=== PATIENT | male | born 1940 | race Caucasian/White ===

== ENCOUNTER 2023-05-20 08:01 | Emergency (ER) | payer MEDICARE, OTHER, SELFPAY ==
[2023-05-20 08:07] VITALS: BP 138/77; PULSE 71; RESP 18; TEMP 36.8; O2SAT 98; BMI 27.4
[2023-05-20 08:29] VITALS: BP 132/71; PULSE 63; RESP 16; O2SAT 97
[2023-05-20 08:36] LABS: Bilirubin Urine NEGATIVE (NEGATIVE); Blood Urine TRACE-I (NEGATIVE); Clarity Urine CLEAR (CLEAR); Color Urine LT. YELLOW (YELLOW); Glucose Urine UA NEGATIVE (NEGATIVE); Ketones Urine NEGATIVE (NEGATIVE); Leukocyte Esterase Urine NEGATIVE (NEGATIVE); Nitrite Urine NEGATIVE (NEGATIVE); Protein Urine NEGATIVE (NEG/TRACE); Specific Gravity Urine 1.015 (1.005-1.025); Urobilinogen Urine 0.2 EU/dL (0.2-1.0); pH Urine 6.5 (5.0-9.0)
[2023-05-20 08:53] LABS: Urine Microscopic Indicated YES
[2023-05-20 08:54] LABS: Bacteria Urine NONE SEEN #/HPF (NONE SEEN); Mucus Urine NONE SEEN (NONE SEEN); RBC Urine 0-2 #/HPF (0-2); Squamous Epithelial Cell Urine RARE #/LPF (NONE/RARE); WBC Urine NONE SEEN #/HPF (NONE SEEN)
[2023-05-20 08:55] LABS: Urine Culture Indicated NO
[2023-05-20 09:00] LABS: Alanine Aminotransferase 24 U/L (16-63); Albumin Globulin Ratio 1.1; Albumin Level 3.4 g/dL (3.4-5.0); Alkaline Phosphatase 53 U/L (46-116); Anion Gap 2.8; Aspartate Amino Transferase 16 U/L (15-37); BUN Creatinine Ratio 19.5; Bilirubin Total 0.5 mg/dL (0.2-1.0); Calcium 8.8 mg/dL (8.5-10.1); Carbon Dioxide 31.1 mmol/L (21.0-32.0); Chloride 105 mmol/L (98-107); Estimated GFR (African America >60 (>=60); Estimated GFR (Non-African Ame >60 (>=60); Glucose 97 mg/dL (74-106); Potassium 3.9 mmol/L (3.5-5.1); Sodium 135 mmol/L (136-145); Total Protein 6.4 g/dL (6.4-8.2)
--- NOTE | 2023-05-20 09:00 | ED.GENADUL1 ---
HPI - General Adult General Chief complaint: Nausea/Vomiting/Diarrhea Stated complaint: DIARRHEA ABD PAIN Time Seen by Provider: 05/20/23 08:58 Source: patient Source information: patient Mode of arrival: walk-in Limitations: no limitations History of Present Illness HPI narrative: Patient is a 82yo male who is complaining of 2 months of diarrhea. Patient says he diarrhea is intermittent. Patient says that he will go through 3 days without diarrhea, and his other days where he may have 2 or 3 episodes a day. Patient's PCP previously was Dr. arana. Patient is seeing Dr Washington on May 29. Patient came into the Emergency Room today the diarrhea has not been stopping. Patient does not feel lightheaded or dizzy. No chest pain or shortness of breath. No nausea vomiting. Patient has no recent traveling. No new antibiotics. No other acute complaints. Intermittent abdominal cramping, no cramping or pain at this time. No diarrhea in the Emergency Room at this time. . All systems are negative except as noted/marked. All systems reviewed and otherwise negative. . Nurses note and vital signs reviewed and patient is not hypoxic. General: The patient appears well and in no apparent distress. Patient is resting comfortably on cart. Patient is not toxic, lethargic, or listless Skin: Warm, dry, no pallor noted. There is no rash noted. No petechiae, purpura. Head: Normocephalic, atraumatic Eye: Normal conjunctiva, no drainage, EOMI. PERRL Ears, Nose, Mouth, and Throat: oral mucosa is moist. Nares patent. Mouth without vesicles. Cardiovascular: Regular Rate and Rhythm, no murmur, gallop, rub Respiratory: Patient is in no distress, no accessory muscle use, lungs are clear to auscultation, no wheezing, rales or rhonchi Back: non-tender, no CVA tenderness bilaterally to percussion. No CT LS midline pain GI: soft, no tenderness to palpation, no masses appreciated. No rebound, guarding, or rigidity noted. No flank pain bilateral, No distention Musculoskeletal: Patient has full range of motion of all of the extremities, no motor, sensory, or focal neurological deficits Neurological: A&O x3, normal speech Psychiatric: Cooperative Related Data Home Medications Medication Instructions Recorded Confirmed dicyclomine 20 mg tablet 20 mg PO QID PRN abdominal pain 05/20/23 05/20/23 Previous Rx's Medication Instructions Recorded dicyclomine 20 mg tablet 20 mg PO TID PRN abdominal pain #7 05/20/23 tabs ondansetron 4 mg disintegrating 4 mg PO Q8H 3 days #9 tabs 05/20/23 tablet Allergies Allergy/AdvReac Type Severity Reaction Status Date / Time No Known Drug Allergies Allergy Verified 05/20/23 08:09 PFSH PFSH Social History Smoking status: Never smoker Exam Constitutional Vital Signs, click to edit/add: Last Vital Signs Temp 98.2 F 05/20/23 08:07 Pulse 55 L 05/20/23 10:19 Resp 18 05/20/23 10:19 BP 138/75 05/20/23 10:19 Pulse Ox 98 05/20/23 10:19 O2 Del Method Room Air 05/20/23 08:07 Course Vital Signs Vital signs: Vital Signs Temperature 98.2 F 05/20/23 08:07 Pulse Rate 71 05/20/23 08:07 Respiratory Rate 18 05/20/23 08:07 Blood Pressure 138/77 05/20/23 08:07 Pulse Oximetry 98 05/20/23 08:07 Oxygen Delivery Method Room Air 05/20/23 08:07 Temperature 98.2 F 05/20/23 08:07 Pulse Rate 55 L 05/20/23 10:19 Respiratory Rate 18 05/20/23 10:19 Blood Pressure 138/75 05/20/23 10:19 Pulse Oximetry 98 05/20/23 10:19 Oxygen Delivery Method Room Air 05/20/23 08:07 Medical Decision Making MDM Narrative Medical decision making narrative: He was given 1 L of IV fluid. Patient will be discharged with prescription for Zofran and Bentyl. Patient did not have any diarrhea in the Emergency Room. Patient was given a prescription for outpatient stool cultures and was sent home with supplies. Results will go to and the ER. No questions at discharge. Lab Data Lab results reviewed: Yes I reviewed the patient's lab results Labs: Lab Results 05/20/23 Range/Units 08:20 WBC 6.3 (4.0-11.0) 10^3/uL RBC 4.76 (4.70-6.10) 10^6/uL Hgb 15.0 (14.0-18.0) g/dL Hct 46.0 (42.0-54.0) % MCV 96.6 H (80.0-94.0) fL MCH 31.5 (25.9-34.0) pg MCHC 32.6 (29.9-35.2) g/dL RDW 12.8 (11.0-15.0) % Plt Count 251 (150-450) 10^3/uL MPV 9.6 (9.5-13.5) fL Neut % (Auto) 52.8 (43.0-75.0) % Lymph % (Auto) 30.3 (20.5-60.0) % Mccone % (Auto) 13.3 H (1.7-12.0) % Eos % (Auto) 3.2 (0.9-7.0) % Baso % (Auto) 0.2 (0.2-2.0) % Neut # (Auto) 3.3 (1.4-6.5) 10^3/uL Lymph # (Auto) 1.9 (1.2-3.8) 10^3/uL Mccone # (Auto) 0.8 (0.3-0.8) 10^3/uL Eos # (Auto) 0.2 (0.0-0.7) 10^3/uL Baso # (Auto) 0.0 (0.0-0.1) 10^3/uL Abs Immat Gran (auto) 0.01 (0.00-0.03) 10^3/uL Imm/Tot Granulo (auto) 0.2 (0.0-0.5) % Sodium 135 L (136-145) mmol/L Potassium 3.9 (3.5-5.1) mmol/L Chloride 105 (98-107) mmol/L Carbon Dioxide 31.1 (21.0-32.0) mmol/L Anion Gap 2.8 BUN 22.0 H (7.0-18.0) mg/dL Creatinine 1.13 (0.70-1.30) mg/dL Est GFR ( Amer) >60 (>=60) Est GFR (Non-Af Amer) >60 (>=60) BUN/Creatinine Ratio 19.5 Glucose 97 (74-106) mg/dL Calcium 8.8 (8.5-10.1) mg/dL Total Bilirubin 0.5 (0.2-1.0) mg/dL AST 16 (15-37) U/L ALT 24 (16-63) U/L Alkaline Phosphatase 53 (46-116) U/L Total Protein 6.4 (6.4-8.2) g/dL Albumin 3.4 (3.4-5.0) g/dL Globulin 3.0 g/dL Albumin/Globulin Ratio 1.1 Urine Color Lt. yellow (YELLOW) Urine Clarity Clear (CLEAR) Urine pH 6.5 (5.0-9.0) Ur Specific Early 1.015 (1.005-1.025) Urine Protein Negative (NEG/TRACE) mg/dL Urine Glucose (UA) Negative (NEGATIVE) mg/dL Urine Ketones Negative (NEGATIVE) mg/dL Urine Occult Blood Trace-i (NEGATIVE) Urine Nitrite Negative (NEGATIVE) Urine Bilirubin Negative (NEGATIVE) Urine Urobilinogen 0.2 (0.2-1.0) EU/dL Ur Leukocyte Esterase Negative (NEGATIVE) Urine RBC 0-2 (0-2) #/HPF Urine WBC None seen (NONE SEEN) #/HPF Ur Squamous Epith Cells Rare (NONE/RARE) #/LPF Urine Crystals Not Reportable Urine Bacteria None seen (NONE SEEN) #/HPF Urine Casts Not Reportable Urine Mucus None seen (NONE SEEN) Ur Culture Indicated? No Discharge Plan Discharge Chief Complaint: Nausea/Vomiting/Diarrhea Clinical Impression: Diarrhea Patient Disposition: Home, Self-Care Condition: Good Prescriptions / Home Meds: New ondansetron 4 mg tablet,disintegrating 4 mg PO Q8H 3 Days Qty: 9 0RF dicyclomine 20 mg tablet 20 mg PO TID PRN (Reason: abdominal pain) Qty: 7 0RF No Action dicyclomine 20 mg tablet 20 mg PO QID PRN (Reason: abdominal pain) Instructions: Acute Diarrhea (ED) Additional Instructions: Increased fluids at home. Stool cultures have been ordered as an outpatient, results will go to Dr. Washington and the ER. Stand Alone Forms: Portal Instructions Referrals: LORENA ARANA [Physician] - 1 week Discharge Date/Time: 05/20/23 10:43
[2023-05-20 09:01] VITALS: BP 132/84; PULSE 64; RESP 16; O2SAT 98
[2023-05-20 09:05] LABS: Basophils Percent Auto 0.2 % (0.2-2.0); Eosinophils Absolute Auto 0.2 10^3/uL (0.0-0.7); Eosinophils Percent Auto 3.2 % (0.9-7.0); Immature Granulocytes Abs Auto 0.01 10^3/uL (0.00-0.03); Immature Granulocytes Pct Auto 0.2 % (0.0-0.5); Lymphocytes Absolute Auto 1.9 10^3/uL (1.2-3.8); Lymphocytes Percent Auto 30.3 % (20.5-60.0); Mean Corpuscular HGB Conc 32.6 g/dL (29.9-35.2); Mean Corpuscular Hemoglobin 31.5 pg (25.9-34.0); Mean Corpuscular Volume 96.6 fL (80.0-94.0); Mean Platelet Volume 9.6 fL (9.5-13.5); Monocytes Absolute Auto 0.8 10^3/uL (0.3-0.8); Monocytes Percent Auto 13.3 % (1.7-12.0); Neutrophils Absolute Auto 3.3 10^3/uL (1.4-6.5); Neutrophils Percent Auto 52.8 % (43.0-75.0); Platelet Count 251 10^3/uL (150-450); Red Blood Count 4.76 10^6/uL (4.70-6.10); Red Cell Distribution Width 12.8 % (11.0-15.0); White Blood Count 6.3 10^3/uL (4.0-11.0)
[2023-05-20] MEDS: 0.9 % SODIUM CHLORIDE 1,000 ML 1000 ML IV (09:09)
[2023-05-20 10:19] VITALS: BP 138/75; PULSE 55; RESP 18; O2SAT 98
[2023-05-20 15:26] LABS: C. Difficile PCR NEGATIVE (NEGATIVE)
[2023-05-20 18:06] LABS: Adenovirus F 40/41 NOT DETECTED (NOT DETECTE); Astrovirus NOT DETECTED (NOT DETECTE); Campylobacter NOT DETECTED (NOT DETECTE); Cryptosporidium NOT DETECTED (NOT DETECTE); Cyclospora cayetanensis NOT DETECTED (NOT DETECTE); Entamoeba histolytica NOT DETECTED (NOT DETECTE); Enteroaggregative E.coli NOT DETECTED (NOT DETECTE); Enteropathogenic E.coli NOT DETECTED (NOT DETECTE); Enterotoxigenic E. coli NOT DETECTED (NOT DETECTE); Giardia lamblia NOT DETECTED (NOT DETECTE); Norovirus GI/GII NOT DETECTED (NOT DETECTE); Plesiomonas shigelloides NOT DETECTED (NOT DETECTE); Rotavirus A NOT DETECTED (NOT DETECTE); Salmonella NOT DETECTED (NOT DETECTE); Sapovirus NOT DETECTED (NOT DETECTE); Shiga-like toxin-producing E.C NOT DETECTED (NOT DETECTE); Shigella/Enteroinvasive E.coli NOT DETECTED (NOT DETECTE); Vibrio NOT DETECTED (NOT DETECTE); Vibrio cholerae NOT DETECTED (NOT DETECTE); Yersinia enterocolitica NOT DETECTED (NOT DETECTE)
[2023-05-21 13:08] LABS: Giardia lamblia Ag, EIA Negative (Negative)
[2023-05-30 20:08] LABS: Ova + Parasite Exam Final report (.)
== END 2023-05-20 10:43 | disposition home or self-care (01) ==
PROVIDERS: Emergency Provider Emergency Medicine; PCP Internal Medicine
DX: R19.7 Diarrhea, unspecified (principal)
CPT/HCPCS: 36415; 80053; 81001; 85025; 87045; 87046; 87177; 87209; 87329; 87427; 87493; 87507; 96360; 99284

== ENCOUNTER 2023-08-30 07:29 | Outpatient (OUT) | payer MEDICARE, OTHER, SELFPAY ==
[2023-08-30 07:58] LABS: Eosinophils Absolute Auto 0.4 10^3/uL (0.0-0.7); Eosinophils Percent Auto 5.8 % (0.9-7.0); Hematocrit 43.6 % (42.0-54.0); Hemoglobin 13.8 g/dL (14.0-18.0); Immature Granulocytes Abs Auto 0.01 10^3/uL (0.00-0.03); Immature Granulocytes Pct Auto 0.2 % (0.0-0.5); Lymphocytes Absolute Auto 2.5 10^3/uL (1.2-3.8); Lymphocytes Percent Auto 38.9 % (20.5-60.0); Mean Corpuscular HGB Conc 31.7 g/dL (29.9-35.2); Mean Corpuscular Hemoglobin 31.2 pg (25.9-34.0); Mean Corpuscular Volume 98.4 fL (80.0-94.0); Mean Platelet Volume 9.4 fL (9.5-13.5); Monocytes Absolute Auto 0.7 10^3/uL (0.3-0.8); Monocytes Percent Auto 10.6 % (1.7-12.0); Neutrophils Absolute Auto 2.9 10^3/uL (1.4-6.5); Neutrophils Percent Auto 44.5 % (43.0-75.0); Platelet Count 249 10^3/uL (150-450); Red Blood Count 4.43 10^6/uL (4.70-6.10); White Blood Count 6.5 10^3/uL (4.0-11.0)
[2023-08-30 08:15] LABS: Alanine Aminotransferase 19 U/L (16-63); Albumin Globulin Ratio 1.1; Albumin Level 3.2 g/dL (3.4-5.0); Alkaline Phosphatase 43 U/L (46-116); Anion Gap 9.5; Aspartate Amino Transferase 11 U/L (15-37); BUN Creatinine Ratio 15.1; Bilirubin Total 0.4 mg/dL (0.2-1.0); Calcium 8.9 mg/dL (8.5-10.1); Chloride 108 mmol/L (98-107); Chol HDL Ratio 3.8; Cholesterol 184 mg/dL (<=200); Estimated GFR (African America >60 (>=60); Estimated GFR (Non-African Ame 59 (>=60); Glucose 100 mg/dL (74-106); HDL Cholesterol 48 mg/dL (40-60); LDL Cholesterol Calculated 117.8 mg/dL; Potassium 4.5 mmol/L (3.5-5.1); Sodium 143 mmol/L (136-145); Total Protein 6.2 g/dL (6.4-8.2); Triglycerides 91 mg/dL (<=150); VLDL CHOLESTEROL 18.2 mg/dL
== END 2023-08-30 07:30 | disposition home or self-care (01) ==
LOC: LAB 07:31
PROVIDERS: PCP Internal Medicine; Visit Provider Internal Medicine
DX: Z00.00 Encounter for general adult medical examination without abnormal findings (principal); K52.9 Noninfective gastroenteritis and colitis, unspecified; E78.5 Hyperlipidemia, unspecified
CPT/HCPCS: 36415; 80053; 80061; 85025

== ENCOUNTER 2023-10-03 06:13 | Outpatient (OUT) | payer MEDICARE, OTHER, SELFPAY ==
--- OUTSIDE RECORDS SUMMARY | 2023-10-03 06:17 | XMS_ITS | CCD ---
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 Name Role Phone Antoni Cho Primary Care Physician GO, DR CHRISSIE Bradley Admitting Unavailable GO, DR CHRISSIE Bradley Attending Unavailable HOUSE, DR CARRILLO Primary Care Unavailable GR[place], DR CHRISSIE Bradley Consulting Unavailable [facility], JERMAIN Consulting Unavailable RIDGEFIELD, DR ANTONI Acevesitting Unavailable RIDGEFIELD, DR CARRILLO Attending Unavailable RIDGEFIELD, DR CARRILLO Primary Care Unavailable MANITOU, DR AQUILES Lee Consulting Unavailable RIDGEFIELD, DR CARRILLO Consulting Unavailable RIDGEFIELD, DR ANTONI Acevesitting Unavailable RIDGEFIELD, DR CARRILLO Attending Unavailable RIDGEFIELD, DR CARRILLO Primary Care Unavailable RIDGEFIELD, DR CARRILLO Consulting Unavailable NARDINI, KINA Consulting Unavailable [place], Antoni Bradley Unavailable Unavailable Unavailable Deejay, Dr. Antoni Howell Primary Care Unava ilable Deejay, Dr. Antoni Howell Primary Care Unava ilable Taryn Real Referring Unavailable Taryn Real Attending Unavailable Jeannie Mclean Unavailable Chrissie SOTELO Attending Unavailable COOK, Chrissie P Attending Unavailable COOK, Chrissie P Referring Unavailable COOK, Chrissie P Attending Unavailable COOK, Chrissie P Admitting Unavailable COOK, Chrissie P Attending Unavailable COOK, Chrissie P Admitting Unavailable COOK, Chrissie P Referring Unavailable Sam AHMADI Attending Unavailable COOK, Chrissie P Attending Unavailable COOK, Chrissie P Attending Unavailable Jama King Unavailable SHAIKH SAHU Attending Unavailable SHAIKH SAHU Attending Unavailable Allergies Allergy Classification Reported Allergen(s) Allergy Type Date of Onset Reaction(s) Facility (1 source) No Known Medication Allergies; Translations: [No Known Medication Allergies] Propensity to adverse reactions (disorder) [facility] Repository Medications Current Medications Medication Drug Class(es) Dates Sig (Normalized) Sig (Original) acetaminophen 325 mg / HYDROcodone bitartrate 5 mg oral tablet (1 source) Opioid Agonist Start: 3 End: 3 acetaminophen-hydroco done 325 mg-5 mg oral tablet 1 tab(s), Oral, q4hr Pain for 2 day(s), 7 tab(s), Refill(s) 0, [id number], 170, cm, 11/16/22 11:51:00 EST, Height/Length Dosing, 85, kg, 11/16/22 11:51:00 EST, Weight Dosing Start Date: 11/29/22 Stop Date: 12/01/22 Status: Ordered [id number] actuat albuterol 0.09 mg/actuat metered dose inhaler (1 source) beta2-Adrenergic Agonist Start: 3 take 2 puff(s) by inhalation every four to six hours as needed Albuterol Sulfate HFA 108 (90 Base) MCG/ACT 2 puffs as needed Inhalation every 4-6 hours for 14 days Aug, Active benzonatate 100 mg oral capsule (1 source) Non-narcotic Antitussive Start: 3 take 1 capsule by mouth three times daily as needed Tessalon Perles 100 MG 1 capsule as needed Orally Three times a day for 7 days Aug, Active cephalexin 500 mg oral capsule (1 source) Cephalosporin Antibacterial Start: 3 End: 3 take 1 capsule by mouth every twelve hours cephalexin 500 mg Cap 500 mg = 1 cap(s), Oral, q12hr, X 5 day(s), # 10 cap(s), Refills(s) 0, Pharmacy: [id number], 170, cm, 11/16/22 11:51:00 EST, Height/Length Dosing, 85, kg, 11/16/22 11:51:00 EST, Weight Dosing Start Date: 11/29/22 Stop Date: 12/04/22 Status: Ordered hyoscyamine sulfate 0.125 mg oral tablet (3 sources) Start: 3 take 1 tablet by mouth every eight hours Levsin 0.125 MG 1 tablet Orally three times a day for 30 days Jun, Active methylPREDNISolone 4 mg oral tablet (1 source) Corticosteroid Start: 3 methylPREDNISolone 4 MG as directed Orally for 6 Aug, Active Multi Vitamin+ (4 sources) Start: 3 Multi Vitamin+ See Instructions, Refill(s) 0, Prophylaxis Start Date: 11/16/22 Status: Ordered Multiple Vitamin (3 sources) Multiple Vitamin Active naproxen sodium 220 mg oral tablet (4 sources) Nonsteroidal Anti-inflammatory Drug Naproxen Sodium 220 MG as directed Orally as needed Active Naproxen Sodium 220 MG Oral Capsule As needed for pain Quantity: 0 Refills: 0 Ordered: 21-Nov-2022 DO Active Omeprazole (8 sources) Proton Pump Inhibitor Start: 11-29-2022 omeprazo le Refills(s) 0, Indigestion Start Date: 11/29/22 Status: Ordered Omeprazole 20 MG 1 capsule every other day Orally QOD Active Omeprazole Activ e Completed/Discontinued Medications Medication Drug Class(es) Dates Sig (Normalized) Sig (Original) ciprofloxacin 500 mg oral tablet (2 sources) Quinolone Antimicrobial Start: 01-02-2022 Cipro 500 mg Tab 500 mg = 1 tab(s), Oral, As Directed, Take one tab the day before procedure, then take 1 tab after the procedure., # 2 tab(s), Refills(s) 0, Pharmacy: [address], 170, cm, 01/02/22 9:19:00 EDT, Height/Length Dosing Start Date: 01/02/22 Status: Ordered Mens Multivitamin Oral Tablet (1 source) take 1 tablet by mouth once daily Mens Multivitamin Oral Tablet TAKE 1 TABLET DAILY. Quantity: 0 Refills: 0 Ordered: 21-Nov-2022 DO Active Triamcinolone (4 sources) Corticosteroid Start: 02-29-2020 Kenalog -40 mg Feb, 40 mg Problems Active Problems Problem Classification Problem Date Documented Da te Episodic/Chronic Disorders of lipid metabolism (1 source) Hyperlipidemia, unspecified; Translations: [HYPERLIPIDEMIA UNSPECIFIED] Onset: 2 Chronic Esophageal disorders (3 sources) Gastroesophageal reflux disease; Translations: [Gastro-esophageal reflux disease without esophagitis] Chronic Genitourinary symptoms and ill-defined conditions (15 sources) Blood in urine; Translations: [Gross hematuria] Onset: 2 Episodic Hyperplasia of prostate (16 sources) Benign prostatic hypertrophy with outflow obstruction; Translations: [Benign prostatic hyperplasia with lower urinary tract symptoms] Onset: 2 Chronic Influenza (1 source) Influenza due to other identified influenza virus with other respiratory manifestations Episodic Open wounds of extremities (1 source) Puncture wound without foreign body of right hand, initial encounter Episodic Osteoarthritis (1 source) Primary osteoarthritis, right shoulder; Translations: [PRIMARY OSTEOARTHRITIS RT SHOULDER] Onset: 2 Chronic Other and unspecified benign neoplasm (2 sources) Benign lipomatous tumor; Translations: [Benign lipomatous neoplasm, unspecified] Onset: 3 Episodic Other and unspecified benign neoplasm (2 sources) Lipoma (clinical) 12-21-2022 Episodic Other diseases of kidney and ureters (4 sources) Acquired renal cyst without neoplastic change; Translations: [Cyst of kidney, acquired] Onset: 2 Episodic Other diseases of kidney and ureters (1 source) Urinary tract obstruction; Translations: [Other obstructive and reflux uropathy] Onset: 2 Episodic Other diseases of kidney and ureters (6 sources) Cyst of kidney 01-02-2022 Episodic Other gastrointestinal disorders (5 sources) Scrotal mass 10-09-2022 Episodic Other gastrointestinal disorders (2 sources) Diarrhea, unspecified Episodic Other male genital disorders (3 sources) Disorder of male genital organ; Translations: [Other specified disorders of the male genital organs] Onset: 3 Episodic Other male genital disorders (2 sources) Disorder of spermatic cord 12-21-2022 Episodic Other nutritional; endocrine; and metabolic disorders (1 source) Overweight in adulthood with body mass index of 25 or more but less than 30; Translations: [Overweight] Episodic Residual codes; unclassified (4 sources) Obstructive sleep apnea syndrome 11-16-2022 Chronic Screening and history of mental health and substance abuse codes (1 source) Ex-smoker; Translations: [Personal history of tobacco use] Episodic Comment on above: quit 1978; Unclassified (5 sources) Asymptomatic microscopic hematuria 10-09-2022 Past or Other Problems Problem Classification Problem Date Documented Da te Episodic/Chronic Abdominal pain (4 sources) Unspecified abdominal pain; Translations: [UNSPECIFIED ABDOMINAL PAIN] Onset: 03-16-2022 Episodic Other non-traumatic joint disorders (1 source) Pain in left shoulder; Translations: [PAIN IN LEFT SHOULDER] Onset: 11-23-2021 Episodic Unclassified (1 source) Acute cough R05.1 Results Test Name Value Interpretation Reference Range Facility COVID + FLU Quick Testingon 09-08-2023 SARS-CoV-2 (COVID-19) RNA RANDALL+probe Ql (Unsp spec) Negative [facility] Other COVID + FLU Quick Testing Positive [facility] Other COVID + FLU Quick Testing Negative [facility] Other Ambulatory Visit Summaryon 0 03-04-2023 Ambulatory Visit Summary STEVE DE LEON :1940 Visit Date:03/04/2023 Ambulatory Visit Instructions Your Diagnosis Lipoma Spermatic cord cyst Asymptomatic microscopic hematuria BPH with obstruction/lower urinary tract symptoms Renal cyst Tests Performed Urnls Dip Stick Auto w/o Microscopy POC 38639 Your Care Team Attending Physician - Chrissie SOTELO MD Primary Care Physician - Antoni Cho DO This Is Your Medications List Contact prescribing physician if questions or concerns multivitamin (Multi Vitamin+) omeprazole Procedures Performed Scrotal exploration (11/29/2022), Spermatic cord (11/29/2022), Cystoscopy (01/15/2022), Colonoscopy, Tonsillectomy. Discharge Vitals Heart Rate (Peripheral) 68 Respiratory Rate 16 Blood Pressure 128/78 Height 170 cm Height 67 in Weight 83.6 kg Weight 183.92 lb BMI 28.93 What to do next Scheduled Follow-Up Appointments Saturday 8:00 AM EDT With: Chrissie SOTELO MD Where: [facility] Patient Educationon 03-04-20 Patient Education Urology Hematuria, Adult Hematuria is blood in the urine. Blood may be visible in the urine, or it may be identified with a test. This condition can be caused by infections of the bladder, urethra, kidney, or prostate. Other possible causes include: ? Kidney stones. ? Cancer of the urinary tract. ? Too much calcium in the urine. ? Conditions that are passed from parent to child (inherited conditions). ? Exercise that requires a lot of energy. Infections can usually be treated with medicine, and a kidney stone usually will pass through your urine. If neither of these is the cause of your hematuria, more tests may be needed to identify the cause of your symptoms. It is very important to tell your health care provider about any blood in your urine, even if it is painless or the blood stops without treatment. Blood in the urine, when it happens and then stops and then happens again, can be a symptom of a very serious condition, including cancer. There is no pain in the initial stages of many urinary cancers. Follow these instructions at home: Medicines ? Take kuad-rbq-ktbsdyr and prescription medicines only as told by your health care provider. ? If you were prescribed an antibiotic medicine, take it as told by your health care provider. Do not stop taking the antibiotic even if you start to feel better. Eating and drinking ? Drink enough fluid to keep your urine pale yellow. It is recommended that you drink 3?4 quarts (2.8?3.8 L) a day. If you have been diagnosed with an infection, drinking cranberry juice in addition to large amounts of water is recommended. ? Avoid caffeine, tea, and carbonated beverages. These tend to irritate the bladder. ? Avoid alcohol because it may irritate the prostate (in males). General instructions ? If you have been diagnosed with a kidney stone, follow your health care provider's instructions about straining your urine to catch the stone. ? Empty your bladder often. Avoid holding urine for long periods of time. ? If you are female: ? After a bowel movement, wipe from front to back and use each piece of toilet paper only once. ? Empty your bladder before and after sex. ? Pay attention to any changes in your symptoms. Tell your health care provider about any changes or any new symptoms. ? It is up to you to get the results of any tests. Ask your health care provider, or the department that is doing the test, when your results will be ready. ? Keep all follow-up visits. This is important. Contact a health care provider if: ? You develop back pain. ? You have a fever or chills. ? You have nausea or vomiting. ? Your symptoms do not improve after 3 days. ? Your symptoms get worse. Get help right away if: ? You develop severe vomiting and are unable to take medicine without vomiting. ? You develop severe pain in your back or abdomen even though you are taking medicine. ? You pass a large amount of blood in your urine. ? You pass blood clots in your urine. ? You feel very weak or like you might faint. ? You faint. Summary ? Hematuria is blood in the urine. It has many possible causes. ? It is very important that you tell your health care provider about any blood in your urine, even if it is painless or the blood stops without treatment. ? Take xtaa-bkp-ewvbela and prescription medicines only as told by your health care provider. ? Drink enough fluid to keep your urine pale yellow. This information is not intended to replace advice given to you by your health care provider. Make sure you discuss any questions you have with your health care provider. Document Revised: 04/26/2021 Document Reviewed: 04/26/2021 [employer] Patient Education ? 2022 [employer]. [facility] Urology Office/Clinic Noteon 03-04-2023 Urology Office/Clinic Note Chief Complaint Pt is here for 2 mos f/u HPI Staff 2 month follow up PO excision of scrotal cyst. Previous DX: asymptomatic microscopic hematuria, BPH w/LUTS, gross hematuria, renal cyst, scrotal mass, spermatic cord cyst, lipoma. No BPH medication. Dysuria: No Incomplete bladder emptying: No Hematuria: No Frequency: No Urgency: No Nocturia: states he gets up 1-2 times per night Stream: Weak Leaking: No History of Present Illness Tests reviewed: reviewed UA I have reviewed the previous health record information and history for this patient from Dr. Sotelo. I have reviewed and verified the staff HPI to be accurate for this encounter. There have been no associated fever, chills, flank pain, or blood in the urine. Denies any urinary infections since last encounter. Review of Systems ROS - Provider Constitutional: denies weight loss, denies hot flashes. Eyes: denies eye problems. Gastrointestinal: denies nausea, denies vomiting. Cardiovascular: denies chest pain or angina. Integumentary: no dryness Musculoskeletal: denies musculoskeletal symptoms. ENMT: denies otolaryngeal symptoms. Respiratory: no shortness of breath. Heme/Lymph: denies easy bleeding tendency, denies easy bruising tendency. Psychiatric: no confusion, no anxiety. Genitourinary: denies dysuria, denies hematuria, denies discharge, denies urinary frequency, denies urinary hesitancy, denies nocturia, denies incontinence, denies genital sores, denies decreased libido, and denies erectile dysfunction. Physical Exam Vitals & Measurements HR: 68(Peripheral) RR: 16 BP: 128/78 HT: 67 in HT: 170 cm WT: 83.6 kg WT: 183.92 lb BMI: 28.93 General Appearance: alert, no distress, well nourished, well developed male. Genitourinary: normal scrotum, normal testes, normal urethra, normal epididymis, normal vas deferens/spermatic cord. Assessment/Plan 1. 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 Pt states that he is healing well, but tender at his incision site. Upon exam pt is healing well and has no sign of infection. Educated pt on placing a gauze pad in-between his underwear and his scrotum to help with the irritation, itching and chafing. Scrotum looks normal and the incision has healed well. Follow up 1yr or sooner if needed. Pt understands and agrees with plan. 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 No Inflammation, granuloma, necrosis or Epithelial component identified. 3. Asymptomatic microscopic hematuria (R31.21: Asymptomatic microscopic hematuria) pt has a hx of gross hematuria neg fish/cytol 01/15/22 (negative complete workup) pt knows to monitor for any visible blood or blood clots in his urine and to contact our office if he develops any. UA today is negative for blood and infection. 4. BPH with obstruction/lower urinary tract symptoms (N40.1: Benign prostatic hyperplasia with lower urinary tract symptoms) No BPH medications. 5. Renal cyst (N28.1: Cyst of kidney, acquired) Left upper pole exophytic renal cyst, 1.3cm. No hydronephrosis, no hydroureter. Seen on prior CT Overall the patient is doing well. Scrotal examination reveals that he is well-healed. No open incisions. Slightly tender in the right upper scrotal incision area. Testicles are palpably normal. Epididymis normal. Spermatic cord normal. Due to the previous evidence of gross hematuria and a negative work-up last year I feel that a continued 1 year follow-up is indicated. Current urinalysis is negative. He agrees with that plan Follow-up With When Contact Information Chrissie SOTELO MD, URL In [address] [place] [id number] Additional Instructions: Patient Education Hematuria, Adult I, Sofiya Gaytan, personally scribed for Dr. Sotelo on 03/04/2023 09:32:00. . Documentation recorded by the scribe, Sofiya Gaytan, accurately reflects the services(s) I performed and decisions made by me. Authenticated by Dr. Sotelo on 03/04/2023 09:32:51. Problem List/Past Medical History Ongoing Asymptomatic microscopic hematuria Benign localized prostatic hyperplasia with lower urinary tract symptoms (LUTS) BPH with obstruction/lower urinary tract symptoms Gross hematuria Lipoma Renal cyst Scrotal mass Spermatic cord cyst Historical No qualifying data Procedure/Surgical History Scrotal exploration (11/29/2022), Spermatic cord (11/29/2022), Cystoscopy (01/15/2022), Colonoscopy, Tonsillectomy. Medications Multi Vitamin+, See Instructions omeprazole Allergies No Known Allergies No Known Medication Allergies Social History Alcohol - High Risk, 11/16/2022 Current, Beer, Daily, 11/16/2022 (more content not included)... Normal [facility] Comment on above: Result Comment: Elec tronically Signed By: Chrissie SOTELO MD\.br\Date and Time Signed: 03/04/23 09:33 EDT\.br\Electronically Co-Signed By: Sofiya Gaytan\.br\Date and Time Co-Signed: 03/04/23 09:32 EDT [place] 12-24-2022 Screens [id number]:[id number] Normal [facility] Patient Educationon 12-22-19 Patient Education Urology Hematuria, Adult Hematuria is blood in the urine. Blood may be visible in the urine, or it may be identified with a test. This condition can be caused by infections of the bladder, urethra, kidney, or prostate. Other possible causes include: ? Kidney stones. ? Cancer of the urinary tract. ? Too much calcium in the urine. ? Conditions that are passed from parent to child (inherited conditions). ? Exercise that requires a lot of energy. Infections can usually be treated with medicine, and a kidney stone usually will pass through your urine. If neither of these is the cause of your hematuria, more tests may be needed to identify the cause of your symptoms. It is very important to tell your health care provider about any blood in your urine, even if it is painless or the blood stops without treatment. Blood in the urine, when it happens and then stops and then happens again, can be a symptom of a very serious condition, including cancer. There is no pain in the initial stages of many urinary cancers. Follow these instructions at home: Medicines ? Take kbtv-pyc-kqkmcqu and prescription medicines only as told by your health care provider. ? If you were prescribed an antibiotic medicine, take it as told by your health care provider. Do not stop taking the antibiotic even if you start to feel better. Eating and drinking ? Drink enough fluid to keep your urine clear or pale yellow. It is recommended that you drink 3?4 quarts (2.8?3.8 L) a day. If you have been diagnosed with an infection, it is recommended that you drink cranberry juice in addition to large amounts of water. ? Avoid caffeine, tea, and carbonated beverages. These tend to irritate the bladder. ? Avoid alcohol because it may irritate the prostate (men). General instructions ? If you have been diagnosed with a kidney stone, follow your health care provider's instructions about straining your urine to catch the stone. ? Empty your bladder often. Avoid holding urine for long periods of time. ? If you are female: ? After a bowel movement, wipe from front to back and use each piece of toilet paper only once. ? Empty your bladder before and after sex. ? Pay attention to any changes in your symptoms. Tell your health care provider about any changes or any new symptoms. ? It is your responsibility to get your test results. Ask your health care provider, or the department performing the test, when your results will be ready. ? Keep all follow-up visits as told by your health care provider. This is important. Contact a health care provider if: ? You develop back pain. ? You have a fever. ? You have nausea or vomiting. ? Your symptoms do not improve after 3 days. ? Your symptoms get worse. Get help right away if: ? You develop severe vomiting and are unable take medicine without vomiting. ? You develop severe pain in your back or abdomen even though you are taking medicine. ? You pass a large amount of blood in your urine. ? You pass blood clots in your urine. ? You feel very weak or like you might faint. ? You faint. Summary ? Hematuria is blood in the urine. It has many possible causes. ? It is very important that you tell your health care provider about any blood in your urine, even if it is painless or the blood stops without treatment. ? Take clqs-prn-afboefu and prescription medicines only as told by your health care provider. ? Drink enough fluid to keep your urine clear or pale yellow. This information is not intended to replace advice given to you by your health care provider. Make sure you discuss any questions you have with your health care provider. Document Released: 08/26/2006 Document Revised: 01/20/2020 Document Reviewed: 09/28/2017 [employer] Patient Education ? 2019 [employer] [facility] Urology Office/Clinic Noteon 12-21-2022 Urology Office/Clinic Note Chief Complaint Pt is here for PO excision of scortal cyst HPI Staff Steve is a 82 y.o. male here for PO excision of scrotal mass. Previous Dx: asymptomatic microscopic hematuria, BPH w/ obstruction/lower urinary tract symptoms, gross hematuria, renal cyst, scrotal mass. S/P excision of scrotal mass done on 11/29/22. Pathology showed lipoma Rt scrotum excision, cyst Lt spermatic cord. Dysuria: denies Incomplete bladder emptying: denies Hematuria: denies Frequency: denies Urgency: denies Nocturia: denies Stream: steady stream Leaking: denies Post void dripping: denies Wearing pads/ Depends: denies Urge incontinence: denies Stress incontinence: denies Incontinence without Sensory Awareness: denies Abdominal pain: denies Flank pain: denies Sexual complaints: _ History of Present Illness I have reviewed and verified the staff HPI to be accurate for this encounter. Review of Systems PHQ Score Initial Depression Screen Score: 0 ROS - Provider Constitutional: denies weight loss, denies hot flashes. Eyes: denies eye problems. Gastrointestinal: denies nausea, denies vomiting. Cardiovascular: denies chest pain or angina. Integumentary: no dryness Musculoskeletal: denies musculoskeletal symptoms. ENMT: denies otolaryngeal symptoms. Respiratory: no shortness of breath. Heme/Lymph: denies easy bleeding tendency, denies easy bruising tendency. Psychiatric: no confusion, no anxiety. Genitourinary: denies dysuria, denies hematuria, denies discharge, denies urinary frequency, denies urinary hesitancy, denies nocturia, denies incontinence, denies genital sores, denies decreased libido, and denies erectile dysfunction. Physical Exam Vitals & Measurements HT: 67 in HT: 170 cm WT: 85 kg WT: 187 lb BMI: 29.41 General Appearance: alert, no distress, well nourished, well developed male. Genitourinary: normal scrotum, normal testes, normal urethra, normal epididymis, normal vas deferens/spermatic cord. Flank Pain: none. Bladder: nonpalpable. Assessment/Plan 1. 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 Pt states that he is healing well, but tender at his incision site. Upon exam pt is healing well and has no sign of infection. Educated pt on placing a gauze pad in-between his underwear and his scrotum to help with the irritation, itching and chafing. Discussed with pt that in 2 months if he has healed completely and has no sxs that he can call our office as needed rather than come into the office for a f/u. Pt understands and agrees with this plan. 2. 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 No Inflammation, granuloma, necrosis or Epithelial component identified. 3. Asymptomatic microscopic hematuria (R31.21: Asymptomatic microscopic hematuria) pt has a hx of gross hematuria neg fish/cytol 05/09/22 (negative complete workup) pt knows to monitor for any visible blood or blood clots in his urine and to contact our office if he develops any. 4. BPH with obstruction/lower urinary tract symptoms (N40.1: Benign prostatic hyperplasia with lower urinary tract symptoms) No BPH medications. 5. Renal cyst (N28.1: Cyst of kidney, acquired) Left upper pole exophytic renal cyst, 1.3cm. No hydronephrosis, no hydroureter. Seen on prior CT Overall the patient is doing well status post excision of scrotal lesions, all of which are benign. He is having pruritus of the scrotum but there is absolutely no sign of infection. I recommended some local vitamin E therapy. The sutures are still intact even though they are chromic. We will see him back in a couple months he will call us for difficulties prior to that visit Follow-up With When Contact Information GO POTTS, Chrissie Bradley, URL In 2 months 02/20/[address] [address]- Additional Instructions: Patient Education Hematuria, Adult I, Sue Black , personally scribed for Dr. Sotelo on 12/21/2022 09:22:44. . Documentation recorded by the scribe, Sue Black MA, accurately reflects the services(s) I performed and decisions made by me. Authenticated by Dr. Sotelo on 12/21/2022 09:31:21. Problem List/Past Medical History Ongoing Asymptomatic microscopic hematuria Benign localized prostatic hyperplasia with lower urinary tract symptoms (LUTS) BPH with obstruction/lower urinary tract symptoms Gross hematuria Lipoma Renal cyst Scrotal mass Spermatic cord cyst Historical No qualifying data Procedure/Surgical History Scrotal exploration (11/29/2022), Spermatic cord (11/29/2022), Cystoscopy (01/15/2022), Colonoscopy, Tonsillectomy. Medications Multi Vitamin+, See Instructions omeprazole Allergie (more content not included)... [facility] Comment on above: Result Comment: Elec tronically Signed By: Chrissie SOTELO MD\.br\Date and Time Signed: 12/21/22 09:32 EDT\.br\Electronically Co-Signed By: Sue Black MA\.br\Date and Time Co-Signed: 12/21/22 09:22 EDT Postoperative Documentson Postoperative Documents [id number]#1.0 0CD:127 [facility] Coding Summary.on 2022 Coding Summary. CD:[id number] Ww +PGhlYWQ+NE1IUIRiX29sm EIpbC5qN8QYLCcDHlqzVFZ AAZzRHpRsssDgPH9jpBXuW XJu IC8+BB3dBVZkJhmpaRCuv0 U2zYU3E18hfk1lQMxkbQC3 MMUyOaDbdpefx3suiOx6JL cuNmluOyBt RIKaxG61YDI4gG33Jk77xU WrnSMhr5lpvCj4WyCmFEWk TMV2qPamUBftl8RpNXAhC1 7hhDPay0L9 UEZdoPvwbBKfHfUtjAM9pM 4fMOffgjrbs5hljcfwBco3 kz47cSVnk5Z2yYD1E8Ayff Q3FAAcpUGs XrohcDIGwN6oflfeg0zgnz rtBlFcHQUuDTw3RWx7WCPj aDbwAdIrUO18GVU4LQVhrv CkH3DnBMQu uTywGiH2c9R1Cu0YJ8YTWs dxU3ESPWSOTTyvlBA+PC90 ny81N2ZqNiymUvd0RONtMC Z8aPC0xQ6i MTLwAXplt7N6bHM4C8Floi Rfrh9me4meUZNxRGpnS71v uVSvu4N5DLYorSO2TIHifL crRlPedL98 Oyc+CFPjaJiph8OvQlivp8 zqi5ixmDa3GiqcMECerlKq rEasMIU9i7NkTi2fOFJbyG P8nEY9xC4t IaVhMqP1YGefP547ZkDolM DeOihkM84nA6DhiGR+PHRy Wxw9IUGelCscKG1bN0AmAN RpbmctbGVm bEiuHM7cBVUyrlkqLSHriQ 2vLNMtQ6s3KjQvElP3BGbk K2IvEANnueqtUy17fI0iOa JcFuO4RKef H9EnjrS6HZZvfRVtFErgJI F8D22yc0T2LUUfOJWnUYY0 hWY2jT9grDwpwjskwLVpoG sgdmVydGlj OIrnPImyV302ATNnqThmOa NvZGluZyBEYXRlOiAgMDMv MjkvMjAyMzwvdGQ+PHRkIH U9kTneDXIz gDDcAWfqEp2taXencJvlOK 6jTCTkbyrtAQUykB6fBSJc aICgbUgwRV4sPADwgjyli6 76EwIkWPB3 NIUqlUYvU3OmtS1qFyCdBF QgXMKgX6OhsANfOWpxB758 RCejOuF8SJXernQnX5ViMC FsaWduOiB0 u5M4Ry1Bf4LwbhghI2ChbB EuXaKbHzpcYSj9O0RnKbll dHI+OR39XBZyPA90IIi4HU R3xSsySAwr TAAqV1MvbT5tUyIrCESaRO RkOyc+PHRhYmxlIHdpZHRo IUynQIFnQbYljYogQS1kWx 9yZGVyLWNv eKmycGNfHyLyp1waXMRrPB vnKO2mxBmtS4OiqYG1AUSc j8r8Gy97T36oS2ZzdEH+PG KksKV0hFZ0 sT4rHjKnTrF1BGgaR755Qa YhrTTtSwqdu2hwu8ohpWu8 HzY8LLJiceMysZizTVR1a1 AvNn32L10x IHdpZHRoPSIxNSUiIHZhbG kcks0jfH0oOa7+PGNvbCB3 oGW7tH3vQtWoOjU0MNgiL0 49InRvcCIv Yohrs1cwt6cvdMm8HfLaIC NxdhAvdLvhQEK4v8WsXw82 N7GyrWwti4WyNmc3wz50cI Jtd3B3eZU6 N6IbSPKhiktufBNcxDhhVM 6tQIOcwiqbHELfrS1dCLVj C8l3FeZeXwJ7WUhvC1Hctl M2ILPjgBOw SNQjtRLViT3anlrcl0rhms meKlVlAHZtFEl0MYv6NGMv kElsAxZyLSG5XhT5RTS8mH JcwF6liJxo qqrnoC4wGmo+RZL3iMTleO EPXR9eVznzrEM+PHRkIHN0 fYiaMPofKVCapV0nWKWqG3 n3ZvOfRiP1 HOkrM3YimeC2DQRdxOSfKG VeeHLCsV1cwfbgh6ivgdvf JcKzAWMiOZe4ZRk9EOZlbB duOiBsZWZ0 AvT0SDG9rZPrfR6vcTcmfj wveV9eSnh+QmlydGggRGF0 BDj0P7YlLdj4WXYfyLwzEB 0ncGFkZGlu Dx2qgUeuhFlxGT0uMHAbwy aeu378EpJml1gxZPTaoIRo GRauANT3Y09kd6F2GNEuIL AzWZI3vTI9 nX3ouFjdgucvwEXsiJadqh SsjIymJMxfIKeqB124VGIe tEpmIkBjNAd9S2XfYhk9DV VvkIapQO6q lGQgLRtlVa9eoBqziSsnPW 4yHTOsrydhq432BeRdg3nm LWCxtJKjNJetLLG5F00vg1 E9LPXtJLEk JQQ4pDP3qU5giGqghfxqmM VmdDsgdmVydGljYWwtYWxp S523SBRvdZffGbVjnEq7Y9 BmTzn2VIDe oEwbNT4jcPUrVIjaOb5fyX tvrAkeSE8mSDXtimywa709 SuXiu0jiCQVgsRKyJUgfBE J2R73cw7S5 QPInNEDqSYN1hPU5wU0pkK lnbjogbGVmdDsgdmVydGlj ISivBSaeQ642XIInyItuTn BhdGllbnQg RTuvYGv2Z4KeVrzgqCG+PC 38MWTzZN76uKQmaGMfm6my mLe6QdSgEDGaIEW2pRxmUY ehm7UuJPCm E47taWPrb3G0YCBmwQiejU GcKfSjePT8bK1kATphbdeb a9kacymrWnrms8umoq82yD 26I85pMSyy ZHRoPSIzMCUiIHZhbGlnbj 0kjN1tNf1+LLSjeXM4pZU1 oV1iIXXyTzX9TWumJ130Fe RvcCIvPjxj h3krc0oqiVb4SjX3VDTtdj YecRlmSNY3c1RxOo15R20x IHdpZHRoPSIyMCUiIHZhbG gtrd0snL7e Ii8+AFVuiTP7eYH4uO4aKo HiPqY1NRogG802GkBstWCn QnpyE00lZ7UazIL+PHRyPj q2LNUadDkc BF8xlZCtJYvmDh0uCMM3Cm MrDrYsVYamF3FsIVYunrzh bbkmnDJ2MXKoWREsmG80Qt 9udDogMTBw cDNZkF8helmpv0xhorjmDx EmERVjJPo4ZBg9XUWpkShn XlLqEAX2LmW4MRB8eCIlnB 1hbGlnbjog zL6dI4EdMRJgbnimCk64cP 8sEsTgRtN4BUesKbp+RFVE YAHaJVZRGXSPAU1kYaccwB Q+PHRkIHN0 eQngNIoaEEJqoF5iQQArA3 g2IgBnKrW2BLmvR5LwIYOs xjbeQr38fP9xCiBkJqY3FG igD0NvdfU0 SMCmpWCfYKvyMRK4W75hc1 Z3UPCtVZTuPJP6zBN5gV8y bGlnbjogbGVmdDsgdmVydG ljYWwtYWxp F711PDBnuCywNnSbTuB3Ge B9ICM2X9CbQft9HZKsaMhe AJ0dpLOnWIunIm7pqMkwwC tpGW4eWSWo efpjPZVdjO6hKFPagLDgsX ccOH1zUZXmvtzhe182WxUx ZXZ7GIVygQEwM0PlsX0sDy AjMDAwMDAw X2MmxREtVApkR173TVfdAg S5BMHaspMvD1NqDOKfsQrz GdL4y6X7Rh17TmOZTHUsbi wvdGQ+PHRk GJS4vClzRVrhSHYcwC4aCH CwU1j6EfGuBxG5JZnzV3To HVAyzdgmJc33jA9nZbAtGj X1LYzoJ2Sg hhD8LGCxjHTiQKbvLNH7O7 2au5T7PDAsTVLwUTO9hBY7 oG1ocMxhffrczFKjyIjuyu VydGljYWwt ROaiL258YDOovFspNz5dzY N0R8GyMdn4HMXxqDxfTF2k sYTlZOqbEh5reAfdhCjxCC 4wNTBpbjtw QWTglE3kKXGrwQRmyRyqZF 1qBXPkzbsst277KuIjMLE0 NRDwjVDyH7PbaE1xApJqSH OkYKXaL9Vu aLYyUAnjV785MTfjSlO4TU DxxnFqF8SsSCMzeVdrDhF2 c8B9Cp8BtYR9aFR5k4E2G7 NhbWUgRGF5 DQF7ncakumw7O6YoEccopQ I+DV08LUSbTO53cWRotJLf o8bavHy1PlKiVXJhAHU4pS hsQReos2Ra UNZnP10jkSBdz6W3KATaoU telAStDwUrfUX5cH6dTPlb fswmg7leecpvFobqq3vjyr 65qD27N88h IHdpZHRoPSIzMCUiIHZhbG myyr4mnB0lLp4+PGNvbCB3 uEI7tB2vLpWaGgP3QUyaZ1 49InRvcCIv Tgrky0bgn3xxtFu3YjYwQG LfmsHtsAmiUPA6v1TvSs13 Y77sFDaiNIOoHEToMILbLH NkrJgbin0c oE0jHl3+WD2gj3dnju24fY 48dHI+DKOcRNJ5zMhcNJlk KFRprE6yHIqrUjV4BNMzKl IihF36yQNr UZraEx0fcHwquFjqXB9sHS Meqwnek531XlEzt3tvGTDg kFItQVomLZA3C80pu1N3XV MwMDAwMDA7 eOW4cY8iiJaxegxuoZYajT ntbxHslNwrWRqyTLtwZ582 FKLwkYrhIeRhmMXhM4vege UJKV3cIghg dGQ+OQUtVSG1cZpuCMsgDG YdfY7lLVZwB7w7IsKaLjL4 UDqbT3BhbwF3NJLfxWCtED LqqUGVkK3j pakce4rvopxfMvQvFHBeAJ r5HVn3SWZnaMinBhCaUND6 FxL5DMF2uTFpmD8yxMjpun uclB9pEsa+ RklOOjwvdGQ+ZJYnEON2cK btAUciLRHuyL0qQLIwI4i8 JvNfIlW6YLceF5BahfF2US JvbGQgMTBw eTBFdO5bejpsu3biivcnZr QcZEFrZDr3HEk4JFVukYuz CwAuWWY6TjH5MDU9iZBdlS 1hbGlnbjog dC7cBqd+TVJOOjwvdGQ+PH DtIZM7nFemHDscQNFlfG0x KKNfX4v4SkUpVaL1EYxwR1 SqlnR6AOLy dXEuDIDhcSNUlN7vqaghx6 zirlnmWxLnMCVpGRi1POe7 VABzrTneFgNqEYQ7IjQ4AL F0yETzlG5d iAlrtmydiH7oEak+UGF5ZX D1KJ94XC32G4NyXywakXMo bGU+PHRhYmxlIHdpZHRoPS cxMDAlJyBz lMztNT5j (more content not included)... [facility] Consultation Noteon 12-04-19 Consultation Note [id number]#1.0 0CD:127 [facility] Consultation Note [id number]#1.0 0CD:127 [facility] IntraOperative Documentson 0 12-03-2022 IntraOperative Documents [id number]#1. 00CD:127 [facility] Consent for Anesthesiaon Consent for Anesthesia [id number]#1. 00CD:127 [facility] Consent for Procedure/Surger yon 11-30-2022 Consent for Procedure/Surgery [id number]#1. 00CD:127 [facility] Discharge Instructionson Discharge Instructions [id number]#1. 00CD:127 [facility] IntraOperative Documentson 0 11-30-2022 IntraOperative Documents [id number]#1. 00CD:127 [facility] IntraOperative Documents [id number]#1. 00CD:127 [facility] Main OR Intraoperative Recor don 11-30-2022 Main OR Intraoperative Record IntraOp Document Type FT Summary Primary Physician: Chrissie SOTELO MD Finalized Date/Time: 11/30/22 12:33:04 Pt. Name: STEVE DE LEON Mike Turner/Sex: 1940 Male Med Rec #: [id number] Physician: Chrissie SOTELO MD Financial #: [id number] Pt. Type: A Room/Bed: Admit/Disch: 11/29/22 08:02:54 - 11/29/22 12:30:00 Institution: Case Times FT Entry 1 Patient Times In Room 11/29/22 09:49:00 Out Room 11/29/22 10:45:00 Procedure Times Start 11/29/22 10:04:00 Stop 11/29/22 10:40:00 Anesthesia Times Start 11/29/22 09:49:00 Stop 11/29/22 10:45:00 Last Modified By: Aruna Pearson RN 11/29/22 10:45:04 General Comments: 11/30/22 chart opened for charge review per Pili Bernstein RN. Case Attendance FT Entry 1 Entry 2 Entry 3 Case Attendee Becky SANABRIA, Av SOTELO MD, Cornelius Maldonado Role Performed SCREEN PRINTING MACHINE LOADER UNLOADER Surgeon - Primary MISSION PLANNER/SA Time In 11/29/22 09:49:00 11/29/22 09:49:00 11/29/22 09:49:00 Time Out 11/29/22 10:45:00 11/29/22 10:45:00 11/29/22 10:45:00 Procedure SCROTAL CYST SCROTAL CYST SCROTAL CYST EXCISION(Bilateral) EXCISION(Bilateral) EXCISION(Bilateral) Comments DR AVENDANO SUPERVISING Last Modified By: Michel HER, Aruna Pearson RN, Aruna Murphy RN 11/29/22 10:45:05 11/29/22 10:45:05 11/29/22 10:45:05 Entry 4 Entry 5 Case Attendee Jewels MAYEN, Aruna Valenzuela RN Role Performed Scrub - Primary Curtain Framer - Primary Time In 11/29/22 09:49:00 11/29/22 09:49:00 Time Out 11/29/22 10:45:00 11/29/22 10:45:00 Procedure SCROTAL CYST SCROTAL CYST EXCISION(Bilateral) EXCISION(Bilateral) Comments Last Modified By: Aruna Pearson RN, RN, Kimberly Y 11/29/22 10:45:05 11/29/22 10:45:05 Perioperative Protocols FT Pre-Care Text: Implements protective measures prior to operative or invasive procedure, confirms identity before the operative or invasive procedure, verifies operative procedure, surgical site, and laterality Entry 1 Procedure(s) SCROTAL CYST Patient Identity Birthday, ID Band EXCISION(Bilateral) Verified (select at Check, Patient least 2): Participation Consents / H and P Anesthesia Consent, Operative Site Present Verified HandP, Surgery/Procedure Marking Verified Consent Surgical Site Yes Laterality Verified Yes Verified Procedure Verified Yes Correct Patient Yes Position Verified Availability Equipment, Medication Prep Dry n/a Verified (If Applicable) PreOp Antibiotic Yes Time Out Av Pena CRNA, COOK MD, Gregory P, Boyer, James W, Jewels MAYEN, Michel Bravo RN, Kimberly Y Time Out Complete 11/29/22 10:03:00 Outcomes Met? Yes Last Modified By: Aruna Pearson RN 11/29/22 10:16:51 Post-Care Text: The patient is free from signs and symptoms of injury caused by extraneous objects Allergy Information FT Pre-Care Text: Verifies allergies Entry 1 Allergies Reviewed? Yes Allergies Reviewed Self/Patient With Outcomes Met? Yes Last Modified By: Aruna Pearson RN 11/29/22 10:17:35 Post-Care Text: The patient received appropriate medication(s) safely administered during the perioperative period Surgical Procedures FT Entry 1 Procedure Description Procedure SCROTAL CYST EXCISION Modifiers Bilateral Surgeon Description RIGHT SCROTAL EXPLORATORY SURGERY WITH REMOVAL OF SCROTAL SKIN NODULES; REMOVAL OF LEFT SPERMATIC CORD CYST Primary Procedure Yes Primary Surgeon Chrissie SOTELO MD 11/29/22 10:04:00 Stop 11/29/22 10:40:00 Anesthesia Type General Surgical Service Urology Wound Class 1 - Clean Last Modified By: Aruna Pearson RN 11/29/22 11:07:10 General Case Data FT Pre-Care Text: Classifies surgical wound, implements aseptic technique, initiates traffic control Entry 1 Case Information OR OR 6 FT Case Level Level 2 Wound Class 1 - Clean Specialty Urology ASA Class 2 Preop Diagnosis SCROTAL MASS HEMATURIA Postop Same As Preop Yes Postop Diagnosis SCROTAL MASS HEMATURIA Outcomes Met? Yes Last Modified By: Aruna Pearson RN 11/29/22 11:07:12 Post-Care Text: The patient is free from signs and symptoms of infection Skin Assessment (Pre Procedure) FT Pre-Care Text: Implements protective measures to prevent skin/ tissue injury due to thermal or mechanical sources Evaluates for signs and symptoms of physical injury to skin and tissue Entry 1 Skin Integrity Intact, [place], Warm, and Skin Abnormality No Dry Outcomes Met? Yes Last Modified By: Aruna Pearson RN 11/29/22 10:18:25 Post-Care Text: The patient is free from signs and symptoms of injury caused by extraneous objects Patient Positioning FT Pre-Care Text: Identifies physical alterations that require additional precautions for procedure-specific positioning, verifies presence of prosthetics or corrective devices, positions the patient, evaluates the patient for signs and symptoms of inju (more content not included)... [facility] Preoperative Documentson Preoperative Documents [id number]#1. 00CD:127 [facility] Preoperative Documents [id number]#1. 00CD:127 [facility] Consent for Treatmenton 11-08 Consent for Treatment [id number]#1.0 0CD:127 [facility] H&P Updateon 11-29-2022 H&P Update [id number]#1. 00CD:127 [facility] Inpatient Patient Summaryon 11-29-2022 Inpatient Patient Summary [place] [id number] [facility] Clinical Discharge Instructions PERSON INFORMATION Name: STEVE DE LEON [facility] Admitting Physician: Chrissie SOTELO MD Attending Physician: Chrissie SOTELO MD PCP: Antoni Cho DO Discharge Diagnosis: Comment: PATIENT EDUCATION INFORMATION Instructions: Post Op Patient Instructions - FT (Custom) (Custom) Medication Leaflets: Follow up: With: Address: When: CHACHA MULLINS [address] [place], [place] [id number] [facility] (1) Comments: Call for followup appointment with Mindi Mullins PA-C or me within the next 2-3 weeks. Should you have problems prior to that visit, please let us know. No shower for two days. Keep scrotal support and ice intermittently for discomfort. Have a great day! Type Location Start Finish State [facility] Office Visit [facility] [place] 01/21/2023 10:30 AM 01/21/2023 10:45 AM Confirmed MEDICATION LIST New Medications [id number], [address], [place] [id number], [phone] acetaminophen-hydrocod one (acetaminophen-hydroco done 325 mg-5 mg oral tablet) 1 Tablets By Mouth every 4 hours as needed Pain for 2 Days. Refills: 0. cephalexin (cephalexin 500 mg Cap) 1 Capsules By Mouth every 12 hours for 5 Days. Refills: 0. Medications to Continue with No Changes Other Medications multivitamin (Multi Vitamin+) omeprazole Comment: [facility] Main OR PACU I Recordon 11-08 Main OR PACU I Record PACU Phase I Docum ent Type FT Summary Primary Physician: Chrissie SOTELO MD Finalized Date/Time: 11/29/22 11:34:56 Pt. Name: QUIN DE LEONISAAC Mckeon /Sex: 1940 Male Med Rec #: [id number] Physician: Chrissie SOTELO MD Financial #: [id number] Pt. Type: A Room/Bed: [place] [address] Admit/Disch: 11/29/22 08:02:54 - Institution: Case Times PACU I FT Pre-Care Text: Identifies barriers to communication and implements measures to provide psychological support Develops individualized plan of care, and ensures continuity of care Maintains patient's dignity and privacy, and maintains patient confidentiality Identifies and reports philosophical, cultural, and spiritual beliefs and values Identifies individual values and wishes concerning care Implements aseptic technique, and administers prescribed antibiotic therapy and immunizing agents as ordered Evaluates postoperative tissue perfusion Implements thermoregulation measures, and monitors body temperature Evaluates postoperative respiratory status Evaluates postoperative cardiac status Evaluates postoperative neurological status Assesses pain control, collaborated in initiating patient-controlled analgesia and implements alternative methods of pain control Verifies allergies, administers prescribed medications and solutions, evaluates response to medications Entry 1 In PACU I 11/29/22 10:46:00 Discharge from PACU 11/29/22 11:16:00 I Outcomes Met? Yes Last Modified By: Sharon Mosquera RN 11/29/22 11:34:28 Post-Care Text: The patient demonstrates knowledge of the expected response to the operative or invasive procedure The patient's care is consistent with the individualized perioperative plan of care The patient's right to privacy is maintained The patient's value system, lifestyle, ethnicity, and culture are considered, respected, and incorporated into the perioperative plan of care The patient participates in decisions affecting his or her perioperative plan of care The patient is free from signs and symptoms of infection The patient has wound/tissue perfusion consistent with or improved from baseline levels established preoperatively The patient is at or returning to normothermia at the conclusion of the immediate postoperative period The patient's respiratory function is consistent with or improved from baseline levels established preoperatively The patient's cardiovascular status is consistent with or improved from baseline levels established preoperatively The patient's cardiovascular status is consistent with or improved from baseline levels established preoperatively The patient demonstrates and/or reports adequate pain control throughout the perioperative period The patient received appropriate medication(s), safely administered during the perioperative period Acuity Level PACU I FT Entry 1 Start Time 11/29/22 10:46:00 Stop Time 11/29/22 11:16:00 Acuity Level Acuity Level I Last Modified By: Sharon Mosquera RN 11/29/22 11:34:47 Finalized By: Sharon Mosquera RN Document Signatures Signed By: Sharon Mosquera RN 11/29/22 11:34 Sharon Mosquera RN 11/29/22 11:34 [facility] Main OR Preoperative Recordo n 11-29-2022 Main OR Preoperative Record PreOp Document Type FT Summary Primary Physician: Chrissie SOTELO MD Finalized Date/Time: 11/29/22 10:13:26 Pt. Name: STEVE DE LEON /Sex: 1940 Male Med Rec #: [id number] Physician: Chrissie SOTELO MD Financial #: [id number] Pt. Type: A Room/Bed: Admit/Disch: 11/29/22 08:02:54 - Institution: Case Times PreOp FT Pre-Care Text: Verifies consent for planned procedure, identifies individual values and wishes concerning care, includes family members in perioperative teaching Entry 1 Patient Times. In Pre Surgery 11/29/22 08:10:00 Out Pre Surgery 11/29/22 09:47:00 Outcomes Met? Yes Last Modified By: Aruna Pearson RN 11/29/22 10:13:22 Post-Care Text: The patient participates in decisions affecting his or her perioperative plan of care Finalized By: Aruna Pearson RN Document Signatures Signed By: Aruna Pearson RN 11/29/22 10:13 [facility] Monitor Recordon 11-29-2022 Monitor Record [id number]#1.0 0CD:127 [facility] Monitor Record [id number]#1.0 0CD:127 [facility] Operative Reporton Operative Report Patient: STEVE DE LEON Age: 81 years Sex: Male : 1940 Associated Diagnoses: None Author: Chrissie SOTELO MD Postoperative Information Date/ Time: 11/29/2022 10:44:00 Postoperative Diagnosis: Scrotal masses (NPD89-XX N50.89, Working, Medical). Performed by: Go POTTS, Chrissie David. Findings: Procedure: Excision right scrotal masses x2 Excision left spermatic cord cyst Anesthesia: General, LMA, 1% Xylocaine infiltrated locally Indications: This is an 81-year-old white male who presented with some scrotal masses, 2 on the right anterolateral aspect of the scrotum and one which seems a bit more deep on the left side but quite movable which can be brought to the skin. The patient has a history of multiple lipomas. He wants these lesions excised. He understands risk of bleeding, infection, recurrence. He understands risk of anesthesia itself and wants to proceed. He did receive preoperative antibiotics and he does have sequential compression devices in place and functional bilateral lower extremities throughout the case. Procedure: The patient was brought back to the operating room and a timeout was performed. He is identified appropriately and all are in agreement with the operative plan. After the successful induction of general anesthesia he is placed in a supine position. Penis external genitalia anterior thighs and lower abdomen are all prepped in usual fashion with Betadine solution. He is draped appropriately. Attention was turned towards the right side. The 2 masses on the right are subcutaneous and appear to be possible lipomas. A right transverse incision is made overlying the larger of the 2 lesions. The skin is entered in the subcutaneous tissues. The lipoma is essentially dissected out with a combination of blunt dissection and electrocautery and its are removed from the field. The second mass could be brought to the level of the first incision and was similarly dissected out and sent to pathology. Hemostasis achieved with electrocautery. The wound was irrigated with saline solution. Attention turned towards closure. The deeper tissues are approximated with 3 interrupted sutures of 3-0 Vicryl and 4-0 Monocryl utilized to close the skin in interrupted fashion. Attention was then turned towards the left side. This is a somewhat larger movable mass. I was able to bring it easily to the skin. Transverse is made overlying this lesion as well. During the course of dissection the area was entered and there was a spurt of completely clear fluid making this a cyst most likely loosely attached to the spermatic cord. This made further dissection quite difficult but I feel that I was able to remove the cyst and its sac. With that accomplished this tissue was sent to pathology for evaluation as well. The wound was closed in similar fashion as described contralaterally. Tolerates it well. Should note that 1% Xylocaine was also infiltrated on the left side. Tissue glue applied followed by gauze dressing and fluffs and scrotal support. He tolerates it well and is transferred to the [place] and then back to PACU in satisfactory condition, stable vital signs. Plan to be for discharge home with plans to follow-up in 2 to 3 weeks in the office. Prescription sent to the pharmacy for [place] and cephalexin. Described all this to the patient's son postoperatively and he is in agreement with the plan. Complications: None. Anesthesia type: General. Normal [facility] Comment on above: Result Comment: Elec tronically Signed By: Chrissie SOTELO MD\.br\Date and Time Signed: 11/29/22 10:50 EDT Outpatient Surgery Discharge Instructionon 11-29-2022 Outpatient Surgery Discharge Instruction [place] [id number] Patient Discharge Instructions PERSON INFORMATION Name: STEVE DE LEON Date of : 1940 Current Date: 11/29/2022 10:49:23 PHYSICIANS Admitting Physician: Chrissie SOTELO MD Discharge Diagnosis: STEVE DE LEON has been given the following list of follow-up instructions, prescriptions, and patient education materials: PATIENT FOLLOW-UP INFORMATION Diet: Regular Discharge Activity: Arrange for a responsible adult supervision for 24 hours, Expect mild pain, Expect minimal amount of drainage and/or bleeding Discharge Restrictions: No driving, Do not operate machinery or tools, Do not make important decisions for 24 hours, Do not drink alcoholic beverages for 24 hours Call Your Doctor For: Persistent or heavy bleeding, Temperature above 101.5 degrees Wound Care Instructions: Keep incision dry Remove Your Dressing In 3 Days IF UNABLE TO CONTACT YOUR PHYSICIAN AND YOU FEEL IT IS AN EMERGENCY, GO TO THE NEAREST EMERGENCY ROOM OR CALL 911 HALEY Jarrett STEPHEN J, have received the attached patient education materials/instructions and have verbalized understanding: May we do a follow up call? Yes No I was present when discharge instructions were given Patient Signature Date Clinican/Nurse Signature ___ Date Follow up: With: Address: When: CHACHA MULLINS [address] [facility]. [place], [place] [id number] [facility] (1) Comments: Call for followup appointment with Mindi Mullins PA-C or me within the next 2-3 weeks. Should you have problems prior to that visit, please let us know. No shower for two days. Keep scrotal support and ice intermittently for discomfort. Have a great day! Type Location Start Finish State [facility] Office Visit [facility] [place] Tay 01/21/2023 10:30 AM 01/21/2023 10:45 AM Confirmed Pharmacy Information: You may receive a survey from Saskia Schwartz asking you to rate your care experience. Your feedback is important and will help us understand what we do well and how we can improve the quality of care we provide to you, your loved ones and our community. It?s an honor to serve you. Thank you for choosing [facility] HERE ARE THE MEDICATION CHANGES THAT OCCURRED DURING YOUR HOSPITAL STAY New Medications [id number], [address] [place] [id number], [phone] acetaminophen-hydrocod one (acetaminophen-hydroco done 325 mg-5 mg oral tablet) 1 Tablets By Mouth every 4 hours as needed Pain for 2 Days. Refills: 0. cephalexin (cephalexin 500 mg Cap) 1 Capsules By Mouth every 12 hours for 5 Days. Refills: 0. Medications to Continue with No Changes Other Medications multivitamin (Multi Vitamin+) omeprazole PATIENT EDUCATION INFORMATION Instructions: Medication Leaflets: Normal [facility] Patient Education - Texton 0 11-29-2022 Patient Education - Text Normal [facility] Progress Note-Physicianon Progress Note-Physician Patient: STEVE DE LEON Age: 81 years Sex: Male : 1940 Associated Diagnoses: None Author: Lauryn POTTS, Meek López Postoperative Information Postoperative disposition: Postoperative disposition: To PACU. Optimetrix number: Optimetrix number [id number]. Anesthetic utilized: General. Physical Examination Vital Signs 11/29/2022 12:25 EDT Temperature Temporal Artery 36.5 DegC Heart Rate Monitored 64 bpm Respiratory Rate Monitored 18 br/min Systolic Blood Pressure 139 mmHg Diastolic Blood Pressure 89 mmHg SpO2 97 % 11/29/2022 11:25 EDT Temperature Temporal Artery 36.5 DegC Heart Rate Monitored 62 bpm Respiratory Rate Monitored 18 br/min Systolic Blood Pressure 135 mmHg Diastolic Blood Pressure 72 mmHg Blood Pressure Location Right arm SpO2 97 % 11/29/2022 11:11 EDT Temperature Temporal Artery 36 DegC LOW Heart Rate Monitored 61 bpm Respiratory Rate Monitored 16 br/min Systolic Blood Pressure 133 mmHg Diastolic Blood Pressure 68 mmHg Blood Pressure Location Right arm SpO2 96 % Pain Assessment: Pain Assessment 11/29/2022 12:25 EDT Numeric Pain Scale 0 = No pain Numeric Pain Score 0 11/29/2022 11:25 EDT Numeric Pain Scale 0 = No pain Numeric Pain Score 0 11/29/2022 11:11 EDT Numeric Pain Scale 0 = No pain Numeric Pain Score 0 Numeric Pain Score 0 . General: Awake, Alert, Appropriate. Respiratory: Adequate air exchange, Equal bilateral chest wall expansion. Cardiovascular: Stable. Neurological: At Baseline. Assessment Anesthetic outcome No anesthetic complications noted. Review / Management Condition: Stable. Plan Transfer/Discharge: Transfer/Discharge Discharge when meets criteria ( From PACU to Ambulatory Surgery Unit, and To home ). Normal [facility] Comment on above: Result Comment: Elec tronically Signed By: Lauryn POTTS, Meek López\.br\Date and Time Signed: 11/29/22 20:15 EDT Progress Note-Physician Patient: STEVE DE LEON Age: 81 years Sex: Male : 1940 Associated Diagnoses: None Author: Meek Avendano MD Preoperative Information Anesthesia Preop Info: Time patient last ate or drank 11/28/2022 18:00:00. Anesthesia history: Patient history: None. Family history+: None. Informed consent: Signed by patient. Including risks, benefits, and alternatives related to the: Anesthetic plan, Postoperative pain management plan. Re-evaluation prior to induction: Initial evaluation reviewed: No significant change. Review of Systems Eye: Negative. Ear/Nose/Mouth/Throat: Negative. Respiratory: Negative. Cardiovascular: Negative. Gastrointestinal: Negative. Genitourinary: Negative. Hematology/Lymphatics: Negative. Endocrine: Negative. Musculoskeletal: Negative. Neurologic: Negative. Health Status Allergies: Allergies (2) Active Reaction No Known Allergies None Documented No Known Medication Allergies None Documented Current medications: Home Medications (2) Active Multi Vitamin+ See Instructions omeprazole , Medications (1) Active Scheduled: (0) Continuous: (1) Lactated Ringers 1,000 mL 1,000 mL, IV, 150 mL/hr PRN: (0) Problem list: All Problems Asymptomatic microscopic hematuria / SNOMED CT 9620086983 / Confirmed Benign localized prostatic hyperplasia with lower urinary tract symptoms (LUTS) / SNOMED CT 4098228704 / Confirmed BPH with obstruction/lower urinary tract symptoms / SNOMED CT 3668188719 / Confirmed Gross hematuria / SNOMED CT 985084990 / Confirmed BRITTANY (obstructive sleep apnea) / SNOMED CT 441054017 / Confirmed Renal cyst / SNOMED CT 7560822722 / Confirmed Scrotal mass / SNOMED CT 81037265 / Confirmed, Active Problems (7) Asymptomatic microscopic hematuria Benign localized prostatic hyperplasia with lower urinary tract symptoms (LUTS) BPH with obstruction/lower urinary tract symptoms Gross hematuria BRITTANY (obstructive sleep apnea) Renal cyst Scrotal mass Histories Social History Social & Psychosocial Habits Alcohol 11/16/2022 Use: Current Type: Beer Frequency: Daily Comment: 4-5 daily - 11/16/2022 09:36 - Marion HER, Anabelle Mcgregor 11/16/2022 Risk Assessment: High Risk Substance Abuse 11/16/2022 Risk Assessment: Denies Substance Abuse Tobacco 01/15/2022 Tobacco Use: Former smoker, quit more 11/16/2022 Risk Assessment: Denies Tobacco Use . Physical Examination Measurements from flowsheet : Measurements 11/29/2022 8:30 EDT Height/Length Measured 170 cm Weight Measured 85 kg Airway: Mallampati classification: II (soft palate, fauces, uvula visible). Distance: Thyromental, Adequate. Respiratory: Lungs are clear to auscultation, Symmetrical chest wall expansion. Cardiovascular: Regular rhythm, Good pulses equal in all extremities. Gastrointestinal: Soft, Non-tender. Plan [place] [employer]esthesi[employer] (ASA) physical status classification: Class II. Anesthetic Preoperative Plan: Anesthesia General. Normal [facility] Comment on above: Result Comment: Elec tronically Signed By: Lauryn POTTS, Meek Ayers.br\Date and Time Signed: 11/29/22 08:44 EDT Coding Summary.on 11-27-2022 Coding Summary. [id number] Gh 0bWw+PGhlYWQ+ES8SXFKmE 41ekDArsC3jA0NQACvXWsv xSQRMHDqUKgYuqvGiEV4ap XNjZXJu IC8+QZ3iHEOwCpkpyVVnb5 Z3tWN0J75cgq0gGTflaEX8 DVGwRmGejtchb8gyeZd5MD cuNmluOyBt XKRnfA29KHV3oX96Np49lD UpaBMhk3fcbBs3IdRqRVMn NVW5lOdrLIcay0CaASGlQ4 4zuUXdf8U1 RCFlnFwqfANoChJiaXD6oV 4eADeylalsc4hziijmDeh5 xs76bSZbr1Z5sRS8Q0Nqvc F8PRPwgKPa UsapsJNClJ6zcxmnm5tmbr asTkGjHLPvYWj0IEx0KRCh qMacQzJhOV12IWN0KRTaai TjJ9BvSBWn jAzjIvG4d9C5It3BA6QOGq mcU1EZQKKWBBgtwLA+PC90 wx95T7JeMzrmCpa5UPCpTL Q3uXU8eM2d IKOrSXynu1B0yMV5D7Nbrm Ckik6ev2taXNQwFRvxG18r dJUzr3J6FFImmAF6QKPooG aiSpNhdU21 Oyc+NXMomJlnh5KaHuqzh5 ogx0pqxOu5ZydsVCYnusKj uUjdOTF8c6BuKd9vMQYybU C2bRY6wP8w WsOlKdQ8UMifC394UmDgbJ EsWyctQ58xA8UyoJL+PHRy Djv5KELrfRafFS6tP2YmJH RpbmctbGVm fEsbCJ5eUOXpwrqaMHHveO 6bRAAdM5v3VzVxEoC0RRic V3CfRQYgcaukBw29jF5hOw TyLhU4PYar G8FfreA9OTRisSUpAWybQO J9U46se0N2NEKdIEZeTSN0 jFD2dT5zqFjydffsrEJuwA sgdmVydGlj PPdwZXrcR364YGPpeOyoZg NvZGluZyBEYXRlOiAgMDMv MjEvMjAyMzwvdGQ+PHRkIH F6uNxgLFTf aWLyARmzEd4yvGvuyBjxFX 3tLEEpcludFPUdaI5bUVFi vGSnzHdaOU1nJHRpnrkro3 27TvXyLRE9 DVLcaNXqU1TyjZ4bRyWcNB UvBPIxG3BskRNoEBswF130 KEjqFcE9HGIxqnOhC7KmDR FsaWduOiB0 m0N3Xs9Wg7LnqfivH8FpjH IgTvEfNxplCVn7T3OsNnav dHI+ZD19UCPdZS13QYa7GR U4iGwyMGuc GVJdP0YmlQ1hDsHmXVAcAV RkOyc+PHRhYmxlIHdpZHRo HNloMJZlUmOxjGxwSF5sRa 9yZGVyLWNv wPsugITaPhVwp5iaGJNcRM kkIE6ltLppT4QzpEZ7CRFf a1g3Bl67W48pZ1YivKQ+PG SdkYX5bVE4 hS6iKdAiIfM2OIhuR273Aq XosJGxUfgxa6yvc2qejNk2 QsD7DBLnztHpaIprIHS0o0 RpXq70F88t IHdpZHRoPSIxNSUiIHZhbG ovnf8auA4kFy6+PGNvbCB3 lMC9gD5qUgQtJxC6TPbhU5 49InRvcCIv Sseri2bxt5wvmEb9OyUrSI JhfxZziHxwGUW3j4RqYe45 O5XneUkmp4NtKug4gi80fV Eoz9S2cWC8 J5AqLLZvmwhukIJjbKzfEC 1gQFKpnrsuZRSkkP4tUIYk B5r4VtHjExT4VEvgA2Jene T8UNOhuLMz ZDVboABBcH6aqaypb9zswq dtJnBePEPhMBg9JTb8SOVi wZssPgWwBOF0PoC4EAM1yX UjsB1idGaw reuroF8bVcf+UKU6uLWvtS ZSCS9mSevynZD+PHRkIHN0 fLwzAHhiAGNxzE7iVIRzL6 e2FySvXmY1 JXggB0WsudP6UCPejQRkWA GfiSLHlO7arhvpk2vnqklb NuZbCOMiYZy3JJu8MFGebO duOiBsZWZ0 AaH5NTS4kDBriV4vcUyghd sktE3jKcy+QmlydGggRGF0 PTk8Y8SnIhv2XDAtwUmsIE 0ncGFkZGlu Pi8wgDbzlMtgPQ5nTDSula kfq834MhCwq7pnFQKwjYAy OLkoVZW3I55ks1V2NSDpTU CmAZD3eHX4 eR9qlHpaohknhEQazDgcwy CwcMlpRCadLLtyC981ICDy nGrdHxBvUXg3Y6YjKah0PC OqrWjuKF5n eCNjSJprOq5jeEnigExnUN 8eZQKtlnlef014PaCya2tg GQUpgIKtCVwbYJB4T16sj9 O7OWGcAPKe QUF6uMU8xK9cgUbfgtpffQ VmdDsgdmVydGljYWwtYWxp S229AKZwuCtmJgEgpWm3Y0 NsWun3WHFu lChqLQ2jnHVrLSrhXg3eyM rikMuxML9tOAMpkshxb148 HuAxs4pdZGMsrCJxWBgtXT N2P61ij8I2 RAAhRZXoEKN0gTH4dG8foP lnbjogbGVmdDsgdmVydGlj IRxuAIzaW054QIDjrPdfUd BhdGllbnQg OSkuQJp5T3RwMfhsgAO+PC 91ZTNaLB73wNAyyMHkx0rv fOc0OgXgZFUaTCQ2kUxtDO iwc4ZpDJKz W88idWEkj8B5KOWtwOobaE XsFpOtcJL4jO8rGFnhaupo l5qyiafmPruig1dwyj44pM 26S92yBZoz ZHRoPSIzMCUiIHZhbGlnbj 9vvK7xCe9+LRAeeXH4lEN0 eE4oUWLoUpA4NAmcP519Fi RvcCIvPjxj a6fhj8yrbDn0FvU5OSGbyw UwaRbrXYI2j4PtDl29O42x IHdpZHRoPSIyMCUiIHZhbG vqpz2xoA0q Ii8+REXdtLJ8jRA7zS8rRs BzImX5GDnfF944HkLpeVJr NtxdB78fB0NotJB+PHRyPj d1VCSlwPwq ZV2ylWFrYJfyWz3wSOR9Gg LzXiPoRYmdO1ZiBYAianou tismwZN7FOSjVHXkmB73Im 9udDogMTBw bBUBzA8mwkuip1uvyhucRe AsRLMuBEl2QDk1JPEhqGim YxGgBJW1OxD9YDI7vIHjzR 1hbGlnbjog fL0eY2VeSPMnbetxIl40jE 6bGvByZgZ5VUgtJxn+RFVE CJZjKUXMKTPBEL0dIvqndV Q+PHRkIHN0 uDakYDtvHGNsfP4rNLCgB5 c5MeMeVuB4IKshK4QkDDXj akqqEp10rM7jSiEtMkZ5LO usG6XbfzM2 PYQugZKrGZwiHVY0F78rc2 F2NENxNZKzUOA5wIV5eQ3b bGlnbjogbGVmdDsgdmVydG ljYWwtYWxp J807GFNhmDluGxTqSdI9Xu Q9MHS6H3GiIdx5NRJxjTfj BR4xpDUzGKygNq1lmEhgoQ zaDO2tPDSv hpewCQYkvQ4xBAAcyIKbdB anTZ9eTCJbfsiyz371CbLy DOO4SXOjxYPfQ1PvtE2gEi AjMDAwMDAw G7MjeKErUYkfW680RYxsOv W5TBWvstMtI1IyQSZxdFky OjN9n3H6Wh79CIUMRGOhrj wvdGQ+PHRk KNZ4fYzwIYeyZBYxgB8lJC DjC1d7LnKhXnN7UGtkX0Rc RBPbennxCu27tC3gIoBuHz T4KOsaJ1Zi jjC5NKQesZKwCXhwBTU8A6 8jo6L3RUNqQUPsYLW9mJN6 kF5aaZpkmmquhWNcxDqwyz VydGljYWwt JMupD953NHCplZixCq9jcH O7Q7SlXnr2NPPbdPzpHS5y rXAhSGutNz4gqUjffUsaJW 4wNTBpbjtw EOQhyG5lFYNdpEQirAmgTS 6qOPAmeaqxf515JjVyBLV9 PLZqqSPnL5NnpU1vHcCaEW ArSOZyO0Fl hEHkLPyjO672YIjiZdE7PR QvvgCqG8BvBGVdiMqxErU4 b3W6Tn3JyUPpVWHkMG05JK 41DM89I5Ia PjwvdGFibGU+PHRhYmxlIH dpZHRoPScxMDAlJyBzdHls ZC6pMs5yDYJqTJZnqYmutU CgAoFrh4wr YSQbHLruUV0rwIyfQ9KdtA F7DRWsa1o8Hz74O86mD4Gw dXA+ETGhfAL2wOT8aM0zIt IiEdI2LTze V718PoYyhDEgIhqap1toc2 uwzUy1UhCtYICcmxPnkTdv AWD7k5AyOv73M37tCIjkRH RoPSIyMCUi VCKjhNhune4uwO6zTq3+PG VreTN7qAM8mO0wCsPfYgG3 QQzdU361QoZzxLCuOwktZ0 7tO9XuhTL+ OLOlNey6XZEewEpoKR1oyD BiHEziOr8iXPU5QwRfYtRc QUniT0AxUYUlfkmshdxrjX B0MZVtEYGy oJ30Rn7nrSytBs6wXAAaYC M2MVShnFAyW4EyzC8hSlBx JSBbMGQbO8IvqHLkHSfyU3 81EIafGdC3 PZDhhbYwN3HoOSZjdEimQw E3l1I1Dt2JzIaqnUYlWA7z LlUuYMj5K3ZiCmk1PGLreC zzGD5ilTAi RQyrXk8fzAefiNalRS7yXR Gjosyay031NkQvi0euBNLt hBXzFOdfVSD1V82xp6J3HK MwMDAwMDA7 aOW0aG9knLxaamqrqOVczA linbGwePfjTCyaPVptG216 GMKabMozBnUBYdh5K3SkXi v8GEOlaKox FM8noYJqORlsXt3vtFxrxR xoZF6wYKHmqntqm013DoTd l4wpYGEvsVNkTWlhAQZ4S3 2cm6C9GGMl WQPlRPJ8yMY6wA1rcKtxns ogbGVmdDsgdmVydGljYWwt HBpgZ317MPTmjZfkKd8ACj q2Q4RqOwd3 MRGdpVvoFO0dpGRnJOybIj 4fqOhgeLhiZD5oFTPvuebr a815IgZtq5sfWZQqiAVyJO hnOQK8A43n a0Y1UFQdKYFfBST1vMI9lY 1hbGlnbjogbGVmdDsgdmVy wBhlVCyvEYkgG318ZRTeoU snPlBheWVy OjwvdGQ+XD59xx82S6SmGo hcRbs6XXFcDCF8jXP5gN1c AYByRPtyp9H9uMN5B2Safr Itan0ir1jo YXBz (more content not included)... Normal [facility] Outside Recordson 11-27-2022 Outside Records [id number] Normal [facility] Office Visit (Cardiology)on 11-21-2022 Follow-up visit Diagnoses/Problems Assessed Pre-operative cardiovascular examination (V72.81) (Z01.810) Overweight with body mass index (BMI) of 28 to 28.9 in adult (278.02,V85.24) (E66.3,Z68.28) Former smoker (V15.82) (Z87.891) quit 1979 Orders Overweight with body mass index (BMI) of 28 to 28.9 in adult Healthy Weight Tips; Status:Complete - Retrospective Authorization; Done: 21Nov2022 Some eating tips that can help you lose weight.; Status:Complete - Retrospective Authorization; Done: 21Nov2022 Pre-operative cardiovascular examination IO EKG Electrocardiogram- 12 Lead; Status:Complete; Done: 21Nov2022 SocHx: Former smoker Tobacco Use Screening; Status:Complete; Done: 21Nov2022 Patient Instructions Please bring all medicines, vitamins, and herbal supplements with you when you come to the office. Prescriptions will not be filled unless you are compliant with your follow up appointments or have a follow up appointment scheduled as per instruction of your physician. Refills should be requested at the time of your visit. Patient may proceed with surgery from cardiac standpoint. Follow up in 1 year. Retrieve stress from [place] The provider reviewed the following test(s) and result(s) with the patient: ECG Risk Assessment Studies: Surgical Clearance:1 STEVE DE LEON is cleared to proceed with surgery1 . 1 Amended By: Mely De Oliveira; Nov 21 2022 11:05 AM ESTChief Complaint STEVE DE LEON is being seen for POC Dr. Sotelo Scrotal xploratory, remove lipomas. 81-year-old white male who was sent to me by Dr. Sotelo for cardiac clearance prior to removal of lipoma from the scrotum. Presurgical testing revealed left axis deviation on EKG. The patient has no previous cardiac history but he tells me that he had at least 4 stress test in the last several years the last of which was in [place] 2 and half years ago which was normal as well. It was done for symptoms of atypical chest pain. Patient has no risk factor for CAD except for his gender his age. He is nondiabetic, nonhypertensive with no hyperlipidemia and no smoking history. He has no family history of CAD. The patient has active lifestyle and has no symptoms of dyspnea or chest pain. 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 His EKG revealed sinus rhythm with left axis deviation. Otherwise physical examination was only remarkable for overweight. Assessment/recommendat ions: 1?patient need cardiac clearance prior to scrotal lipoma surgery. By definition this is a low risk surgery. The patient has no major risk factor for CAD and is asymptomatic from a cardiovascular standpoint. There will be no further cardiac investigations needed. I will retrieve the stress test from [place]. Patient is considered low risk for the upcoming surgery and therefore I have no concern about his EKG. 2?slight overweight, encouragement provided to lose weight. 3?mildly abnormal EKG with left axis deviation of no clinical consequences. The patient asked me if he can see me on an annual basis and I have no problem with that. Current Meds Medication NameInstruction Mens Multivitamin Oral TabletTAKE 1 TABLET DAILY. Naproxen Sodium 220 MG Oral CapsuleAs needed for pain Omeprazole 20 MG Oral Capsule Delayed ReleaseTAKE 1 CAPSULE BY MOUTH EVERY OTHER DAY Allergies Medication No Known Drug Allergies Recorded By: Franny Murphy; 11/21/2022 10:31:49 AM Social History Problems Daily caffeine consumption, 2-3 servings a day Former smoker (V15.82) (Z87.891) quit 1978 No illicit drug use Social alcohol use (V49.89) (Z78.9) Review of Systems Constitutional: not feeling tired. Eyes: no eyesight problems. ENT: no hearing loss and no nosebleeds. Cardiovascular: no intermittent leg claudication and as noted in HPI. Respiratory: no chronic cough and no shortness of breath. Gastrointestinal: no change in bowel habits and no blood in stools. Genitourinary: no urinary frequency and no hematuria. Skin: no skin rashes. Neurological: no seizures and no frequent falls. Psychiatric: no depression and not suicidal. All other systems have been reviewed and are negative for complaint. Vitals Vital Signs Recorded: 21Nov2022 10:36AMRecorded: 21Nov2022 10:34AM Traijoir327, LUE, Fvpgfel444, RUE, Sitting Ifgpsohdu03, LUE, Czxucod81, RUE, Sitting Heart Rate67, Apical Height5 ft 7 in Nqsrie903 lb BMI Eclskzdzri12.98 kg/m2 BSA Calculated1.96 Tobacco Useb) No PHQ-2 #1. Over the last 2 weeks have you felt down, depressed or hopeless? (If yes, answer PHQ-9 below)No PHQ-2 #2. Over the last 2 weeks have you felt little interest or pleasure in doing things? (If yes, answer PHQ-9 below)No Falls Screening (Age 18+)a) No falls within the last year EKG done in office today. Physical Exam Constitutional: alert and in no acute distress. Eyes: no erythema, swelling or discharge from the eye . Neck: neck is supple, symmetric, trachea midline, no masses (more content not included)... Normal [employer] Tobacco Screening.on 023 Adult depression screening assessment No -[facility] [employer] [facility] [address] DO Work Phone: Fall risk assessment a) No falls within the last year [facility] [address] DO Work Phone: Tobacco use status [facility] b) No -[facility] [address] DO Work Phone: Auto Diffon 11-16-2022 Basophils/100 WBC (Bld) 0.0 % Normal 0.0-2.0 [facility] Comment on above: Order Comment: Order Added by Discern Expert. Performed By: #### 2 [id number], [id number], 5776636, [id number], [id number] ####[facility] [address] [place] [address] Basophils/Leukocytes Auto (Bld) [Pure # fraction] 0.0 E9/L Normal 0.0-0.2 [facility] Comment on above: Order Comment: Order Added by Discern Expert. Performed By: #### 2 200845, [id number], 9586013, [id number], [id number] ####[facility] [address] [place] [address] Eosinophils/100 WBC (Bld) 6.6 % Normal 0.0-8.0 [facility] Comment on above: Order Comment: Order Added by Discern Expert. Performed By: #### 2 379782, [id number], 7193128, 17943596, 0710400 ####[facility] [address] [place] [address] Eosinophils/Leukocyte s Auto (Bld) [Pure # fraction] 0.3 E9/L Normal 0.0-0.5 [facility] Comment on above: Order Comment: Order Added by Discern Expert. Performed By: #### 2 410546, [id number], 3055363, 28250130, [id number] ####[facility] [address] [place] [address] Lymphocytes/100 WBC (Bld) 34.7 % Normal 14.0-50.0 [facility] Comment on above: Order Comment: Order Added by Discern Expert. Performed By: #### 2 996701, [id number], 7893046, 71383827, 6980121 ####[address] [address] Lymphocytes/Leukocyte s Auto (Bld) [Pure # fraction] 1.7 E9/L Normal 1.0-4.0 [facility] Comment on above: Order Comment: Order Added by Discern Expert. Performed By: #### 2 312584, 20778715, 4371027, 41571469, 0732360 ####[facility] [address] [place] [address] Monocytes/100 WBC (Bld) 11.5 % Normal 4.0-14.0 [facility] Comment on above: Order Comment: Order Added by Discern Expert. Performed By: #### 2 786605, 72262057, 9790559, 43312318, 6327477 ####[address] [address] Monocytes/Leukocytes Auto (Bld) [Pure # fraction] 0.6 E9/L Normal 0.2-1.0 [facility] Comment on above: Order Comment: Order Added by Discern Expert. Performed By: #### 2 246417, 57282616, 2292113, 39638685, 0546064 ####[facility] [address] [place] [address] Neutrophils/100 WBC (Bld) 47.2 % Normal 36.0-75.0 [facility] Comment on above: Order Comment: Order Added by Discern Expert. Performed By: #### 2 175868, 70551062, 2666757, 54003534, 1372163 ####[facility] [address] [place] [address] Neutrophils/Leukocyte s Auto (Bld) [Pure # fraction] 2.3 E9/L Normal 2.0-7.5 [facility] Comment on above: Order Comment: Order Added by Discern Expert. Performed By: #### 2 232481, 82031680, 7972141, 94510226, 8348339 ####[facility] [address] [place] [address] BMPon 11-16-2022 Anion gap [Moles/Vol] 9 mmol/L Normal 6-16 [facility] Comment on above: Performed By: #### 2 561149, 26515681, 1405452, 58172421, 0299285 ####[facility] [address] [place] [address] Calcium [Mass/Vol] 9.1 mg/dL Normal 8.9-11.1 [facility] Comment on above: Performed By: #### 2 781265, 94506343, 2163363, 01632091, 8135406 ####[facility] [address] [place] [address] Chloride [Moles/Vol] 105 mmol/L Normal 101-111 [facility] Comment on above: Performed By: #### 2 407086, 98067472, 1237664, 83000514, 2757716 ####[facility] [address] [place] [address] CO2 [Moles/Vol] 29 mmol/L Normal 21-31 [facility] Comment on above: Performed By: #### 2 492555, [id number], 3480032, 11619116, 0794337 ####[facility] [address] [place] [address] Creatinine [Mass/Vol] 1.1 mg/dL Normal 0.5-1.3 [facility] Comment on above: Performed By: #### 2 526939, [id number], 4344840, 55508096, 9049436 ####[facility] [address] [place] [address] Glucose [Mass/Vol] 73 mg/dL Normal 55-199 [facility] Comment on above: Result Comment: If t his glucose result represents a fasting glucose, interpretation should refer to the following reference range: 55-99 mg/dL Performed By: #### 2 979966, 22150384, 4372374, 72463205, 1894988 ####[facility] [address] [place] [address] Potassium [Moles/Vol] 4.1 mmol/L Normal 3.5-5.3 [facility] Comment on above: Performed By: #### 2 143272, 40444770, 6940844, 81331442, 1964623 ####[facility] [address] [place] [address] Sodium [Moles/Vol] 139 mmol/L Normal 135-145 [facility] Comment on above: Performed By: #### 2 094976, 62150715, 3890720, 86517433, 8056323 ####[facility] [address] [place] [address] Urea nitrogen [Mass/Vol] 23 mg/dL High 5-21 [facility] Comment on above: Performed By: #### 2 868187, 10273248, 9511399, 07141072, 1853050 ####[facility] [address] [place] [address] Urea nitrogen/Creatinine [Mass ratio] 21 No Units High 10-20 [facility] Comment on above: Performed By: #### 2 548320, 80025478, 6204533, 80063657, 4237474 ####[facility] [address] [place] [address] CBC w/ Auto Diffon 3 Erythrocyte distribution width (RBC) [Ratio] 13.6 % Normal 10.9-14.2 [facility] Comment on above: Performed By: #### 2 526582, 62307330, 7533622, 37711772, 2608265 #### [facility] [address] [place] [address] Hematocrit (Bld) [Volume fraction] 43.3 % Normal 37.7-49.0 [facility] Comment on above: Performed By: #### 2 653295, 31858815, 9446838, 18158732, 7687673 #### [facility] [address] [place] [address] Hemoglobin (Bld) [Mass/Vol] 14.1 g/dL Normal 13.5-17.5 [facility] Comment on above: Performed By: #### 2 899138, 64926667, 4181123, 28072005, 7992264 #### [facility] Laboratory [address] [place] [address] MCH (RBC) [Entitic mass] 31.8 pg Normal 27.0-34.0 [facility] Comment on above: Performed By: #### 2 [id number], [id number], 0555242, [id number], [id number] #### [facility] [address] [place] [address] MCHC (RBC) [Mass/Vol] 32.6 g/dL Normal 31.4-36.0 [facility] Comment on above: Performed By: #### 2 [id number], [id number], 2590925, [id number], [id number] #### [facility] [address] [place] [address] MCV (RBC) [Entitic vol] 97.3 fL Normal 80.0-100.0 [facility] Comment on above: Performed By: #### 2 820578, [id number], 5165343, [id number], 5221079 #### [facility] [address] [place] [address] Platelet mean volume (Bld) [Entitic vol] 8.1 fL Normal 6.4-10.8 [facility] Comment on above: Performed By: #### 2 749771, [id number], 9368041, [id number], [id number] #### [facility] [address] [place] [address] Platelets (Bld) [#/Vol] 215.0 E9/L Normal 150.0-500.0 [facility] Comment on above: Performed By: #### 2 035083, [id number], 8530692, 40598109, [id number] #### [facility] [address] [place] [address] RBC (Bld) [#/Vol] 4.4 E12/L Normal 4.3-5.9 [facility] Comment on above: Performed By: #### 2 575819, [id number], 2260673, [id number], 5570982 #### [facility] [address] [place] [address] WBC corrected for nucl RBC Auto (Bld) [#/Vol] 5.0 E9/L Normal 4.0-11.0 [facility] Comment on above: Performed By: #### 2 309241, 92285033, 4216214, 30992628, 1846850 #### [facility] [address] [place] [address] CHEMISTRYOrdered By: SYSTEM SYSTEM on 11-16-2022 Anion gap [Moles/Vol] 9 mmol/L Normal 6 - 16 mEq/L [facility] Calcium [Mass/Vol] 9.1 mg/dL Normal 8.9 - 11. 1 mg/dL [facility] Chloride [Moles/Vol] 105 mmol/L Normal 101 - 1 11 mmol/L [facility] CO2 [Moles/Vol] 29 mmol/L Normal 21 - 31 mmol/L [facility] Creatinine [Mass/Vol] 1.1 mg/dL Normal 0.5 - 1.3 mg/dL [facility] GFR/1.73 sq M.predicted among blacks MDRD (S/P/Bld) [Vol rate/Area] mL/min/1.73 m2 Normal >=59mL/min/ 1.73 m2 [facility] Chem S GFR/1.73 sq M.predicted among non-blacks MDRD (S/P/Bld) [Vol rate/Area] mL/min/1.73 m2 Normal >=59mL/min/ 1.73 m2 [facility] Chem S Glucose [Mass/Vol] 73 mg/dL Normal 55 - 199 mg/dL [facility] Potassium [Moles/Vol] 4.1 mmol/L Normal 3.5 - 5.3 mmol/L [facility] Sodium [Moles/Vol] 139 mmol/L Normal 135 - 145 mmol/L [facility] Urea nitrogen [Mass/Vol] 23 mg/dL High 5 - 21 mg/dL [facility] Urea nitrogen/Creatinine [Mass ratio] 21 mg/mg High 10 - 20 [facility]isol COAGULATIONOrdered By: Sarbjit Ramirez on 11-16-2022 aPTT Coag (PPP) [Time] 33.2 s Normal 25.1 - 36.5 second(s) [facility] Auto Coag INR Coag (PPP) [Relative time] 1.1 {INR} Invalid Interpretation Code [facility] Auto Coag PT Coag (PPP) [Time] 12.6 s High 9.4 - 1 2.5 second(s) [facility] Auto Coag Consent for Treatmenton 11-07 Consent for Treatment [id number] 0CD:127 Normal [facility] HEMATOLOGYOrdered By: SYSTEM SYSTEM on 11-16-2022 Basophils/100 WBC (Bld) 0.0 % Normal 0.0 - 2.0 % [facility]eAutoSS Basophils/Leukocytes Auto (Bld) [Pure # fraction] 0.0 E9/L Normal 0.0 - 0.2 E9/L [facility] HemeAutoSS Eosinophils/100 WBC (Bld) 6.6 % Normal 0.0 - 8.0 % [facility]eAuto[facility] Eosinophils/Leukocyte s Auto (Bld) [Pure # fraction] 0.3 E9/L Normal 0.0 - 0.5 E9/L [facility] HemeAutoSS Lymphocytes/100 WBC (Bld) 34.7 % Normal 14.0 - 50.0 % [facility] HemeAutoSS Lymphocytes/Leukocyte s Auto (Bld) [Pure # fraction] 1.7 E9/L Normal 1.0 - 4.0 E9/L [facility] HemeAutoSS Monocytes/100 WBC (Bld) 11.5 % Normal 4.0 - 14.0 % [facility] HemeAutoSS Monocytes/Leukocytes Auto (Bld) [Pure # fraction] 0.6 E9/L Normal 0.2 - 1.0 E9/L [facility] HemeAutoSS Neutrophils/100 WBC (Bld) 47.2 % Normal 36.0 - 75.0 % [facility] HemeAutoSS Neutrophils/Leukocyte s Auto (Bld) [Pure # fraction] 2.3 E9/L Normal 2.0 - 7.5 E9/L [facility] HEMATOLOGYOrdered By: Mame Penaloza on 11-16-2022 Erythrocyte distribution width (RBC) [Ratio] 13.6 % Normal 10.9 - 14.2 % [facility] Hematocrit (Bld) [Volume fraction] 43.3 % Normal 37.7 - 49.0 % [facility] Hemoglobin (Bld) [Mass/Vol] 14.1 g/dL Normal 13.5 - 17.5 gm/dL [facility]eAutoSS MCH (RBC) [Entitic mass] 31.8 pg Normal 27.0 - 34.0 pg [facility] HemeAutoSS MCHC (RBC) [Mass/Vol] 32.6 g/dL Normal 31.4 - 36.0 gm/dL [facility] HemeAutoSS MCV (RBC) [Entitic vol] 97.3 fL Normal 80.0 - 100.0 fL [facility]eAutoSS Platelet mean volume (Bld) [Entitic vol] 8.1 fL Normal 6.4 - 10.8 fL [facility] HemeAutoSS Platelets (Bld) [#/Vol] 215.0 E9/L Normal 150.0 - 500.0 E9/L [facility]eAutoSS RBC (Bld) [#/Vol] 4.4 E12/L Normal 4.3 - 5.9 E12/L [facility]eAutoSS WBC corrected for nucl RBC Auto (Bld) [#/Vol] 5.0 E9/L Normal 4.0 - 11.0 E9/L [facility]eAutoSS PT & PTTon 11-16-2022 aPTT Coag (PPP) [Time] 33.2 second(s) Normal 25.1-36.5 [facility] Comment on above: Result Comment: Para meter 15 days - 4 weeks 1 - 5 months 6 - 11 months 1 - 5 years 6 - 10 years 11 - 17 years PTT Mean: 35.4 (27.6-45.6) Mean: 33.5 (24.8-40.7) Mean: 32.4 (25.1-40.7) Mean: 31.6 (24.0-39.2) Mean: 31.6 (26.9-38.7) Mean: 31.0 (24.6-38.4) Pediatric Reference ranges were obtained from a study by Alli Burch et al. prepared from 1437 samples obtained at 7 different centers using the same coagulation reagent and instrumentation as [facility]. Currently there are no coagulation studies available worldwide for children to 14 days, and no normal ranges. Heparin therapeutic range (represented by Anti-Factor Xa activity of 0.2 - 0.4 U/mL) corresponds to PTT of 56.6 - 109.0 sec. Performed By: #### 2 918089, [id number], 1178664, 01352200, 0419050 #### [facility] [address] [place] [address] INR Coag (PPP) [Relative time] 1.1 {INR} Invalid Interpretation Code [facility] Comment on above: Result Comment: INR results are specifically intended to assess patients stabilized on long-term Anticoagulation therapy suggested INR?s ?Less Intensive Anticoagulation? 2.0 ? 3.0 Conventional Range 3.0 ? 4.5 Performed By: #### 2 896735, 42840032, 8163443, 02900441, 9883390 #### [facility] [address] [place] [address] PT Coag (PPP) [Time] 12.6 second(s) High 9.4-12.5 [facility] Comment on above: Result Comment: 15 d ays - 4 weeks 1 - 5 months 6 -11 months 1- 5 years 6-10 years 11 -17 years Mean: 11.2 (9.5-12.6) Mean: 11.0 (9.7-12.8) Mean: 11.0 (9.8-13.0) Mean: 11.3 (9.9-13.4) Mean: 11.7 (10.0-14.6) Mean: 11.8 (10.0 - 14.1) Pediatric Reference ranges were obtained from a study by Alli Burch et al. prepared from 1437 samples obtained at 7 different centers using the same coagulation reagent and instrumentation as [facility]. Currently there are no coagulation studies available worldwide for children to 14 days, and no normal ranges. Performed By: #### 2 292326, 40372828, 9901341, 03468487, 3741015 #### [facility] [address] [place] [address] UA With Cult Reflexon 2022 Bacteria LM Ql (Urine sed) TRACE Normal Trace [facility] Comment on above: Performed By: #### 1 [id number] ####[address] [place] [address] Bilirubin Ql (U) Negative Normal Negative [facility] Comment on above: Performed By: #### 1 [id number] ####[address] [address] Clarity (U) CLEAR Normal Clear [facility] Comment on above: Performed By: #### 1 [id number] ####[facility] [address] [place] [address] Color (U) YELLOW Normal Yellow [facility] Comment on above: Performed By: #### 1 [id number] ####[address] [address] Epithelial cells.squamous LM.HPF (Urine sed) [#/Area] 0-2 Normal 0-2 [facility] Comment on above: Performed By: #### 1 [id number] ####[address] [place] [address] Glucose Test strip (U) [Mass/Vol] Negative Normal Negative [facility] Comment on above: Performed By: #### 1 [id number] ####[address] [place] [address] Hemoglobin Ql (U) Negative Normal Negative [facility] Comment on above: Performed By: #### 1 7630221 ####[address] [address] Ketones (U) [Mass/Vol] Negative Normal Negative [facility] Comment on above: Performed By: #### 1 5546207 ####[address] [address] [place].plasma/Lithiu m.RBC (Bld) [Mass ratio] 0-3 Normal 0-3 [facility] Comment on above: Performed By: #### 1 [id number] ####[address] [address] Nitrite Ql (U) Negative Normal Negative [facility] Comment on above: Performed By: #### 1 [id number] ####[address] [address] pH (U) 7.5 [pH] Invalid Interpretation Code 5.0-9.0 [facility] Comment on above: Performed By: #### 1 [id number] ####[address] [address] Protein (U) [Mass/Vol] Negative Normal Negative [facility] Comment on above: Performed By: #### 1 2621269 ####[address] [address] Specific gravity (U) [Rel density] 1.020 Invalid Interpretation Code 1.005-1.030 [facility] Comment on above: Performed By: #### 1 [id number] ####[address] [address] Type of Urine collection method Clean Catch Normal [facility] Comment on above: Performed By: #### 1 [id number] ####[address] [address] Urobilinogen Qn (U) 0.2 {Jaleel'U}/dL Normal 0.0-1.0 [facility] Comment on above: Performed By: #### 1 [id number] ####[facility] [address] [place] [address] WBC Auto Ql (U) Negative Normal Negative [facility] Comment on above: Performed By: #### 1 [id number] ####[facility] [address] [place] [address] WBC LM.HPF (Urine sed) [#/Area] 0-5 Normal 0-5 [facility] Comment on above: Performed By: #### 1 [id number] ####[facility] [address] [place] [address] URINALYSISOrdered By: Jayme Ramirez on 11-16-2022 Bacteria LM Ql (Urine sed) Trace /HPF Normal Trace/HPF [facility] UA Auto SS Bilirubin Ql (U) Negative (11/16/22 9:55 AM) Normal Negative [facility] UA Auto SS Clarity (U) Clear (11/16/22 9:55 AM) Normal Clear [facility] UA Auto SS Color (U) Yellow (11/16/22 9:55 AM) Normal Yellow [facility] UA Auto SS Epithelial cells.squamous LM.HPF (Urine sed) [#/Area] 0-2 /HPF Normal 0-2/HPF [facility] UA Aut o SS Glucose Test strip (U) [Mass/Vol] Negative (11/16/22 9:55 AM) Normal Negative [facility] UA Auto SS Hemoglobin Ql (U) Negative (11/16/22 9:55 AM) Normal Negative [facility] UA Auto SS Ketones (U) [Mass/Vol] Negative (11/16/22 9:55 AM) Normal Negative [facility] UA Auto SS [place].plasma/Lithiu m.RBC (Bld) [Mass ratio] 0-3 /HPF Normal 0-3/HPF [facility] UA Auto SS Nitrite Ql (U) Negative (11/16/22 9:55 AM) Normal Negative [facility] UA Auto SS pH (U) 7.5 *NA* (11/16/22 9:55 AM) Invalid Interpretation Code 5.0 - 9.0 [facility] UA Auto SS Protein (U) [Mass/Vol] Negative (11/16/22 9:55 AM) Normal Negative [facility] UA Auto SS Specific gravity (U) [Rel density] 1.020 *NA* (11/16/22 9:55 AM) Invalid Interpretation Code 1.005 - 1.030 [facility] UA Auto SS UA Spec Desc Clean Catch (11/16/22 9:55 AM) Normal [facility] UA Auto SS Urobilinogen Qn (U) 0.4644454 {Jaleel'U}/dL Normal 0.0 - 1.0 EU/dL [facility] UA Auto SS WBC Auto Ql (U) Negative (11/16/22 9:55 AM) Normal Negative [facility] UA Auto SS WBC LM.HPF (Urine sed) [#/Area] 0-5 /HPF Normal 0-5/HPF [facility] UA Auto SS XR Chest 2 Viewson XR Chest 2 Views Exam Date/Time: 11/16/2022 10:13 EST Reason for Exam: P.A.T. Report IMPRESSION: NO ACTIVE LUNG DISEASE. EXAM: XR Chest 2 Views CLINICAL HISTORY: Shortness of breath P.A.T. COMPARISONS: None FINDINGS: The heart, mediastinum and pulmonary vasculature are within normal limits. Visualized lung griffiths are clear. Bones unremarkable. Ordering Provider: Cornelius Ferraro FINAL REPORT Dictated: 11/16/2022 12:43 pm Doin Burton MD Signed (Electronic Signature): 11/16/2022 12:43 pm Signed by: Doni Burton MD Transcribed by: JENNIFER Technologist: CHAPARRO Technical Comments Radiation Dose: Ka,r in mGy = na DAP = na Normal [facility] eGFRon 11-16-2022 GFR/1.73 sq M.predicted among blacks MDRD (S/P/Bld) [Vol rate/Area] mL/min/{1.73_m2} Normal >=59 [facility] Comment on above: Order Comment: Order added by Discern Expert. Result Comment: eGFR is race adjusted. AA=. Performed By: #### 2 [id number], 31692357, 7631645, [id number], 7447996 ####[facility] [address] [place] [address] GFR/1.73 sq M.predicted among non-blacks MDRD (S/P/Bld) [Vol rate/Area] mL/min/{1.73_m2} Normal >=59 [facility] Comment on above: Order Comment: Order added by Discern Expert. Result Comment: [facility] Director jarred kidney disease could be indicated at eGFR's of less than 60 mL/min/1.73m2. Kidney failure is indicated at less than 15 mL/min/1.73m2. Performed By: #### 2 [id number], 98935149, 4236529, 55467171, 2379496 ####[facility] [address] [place] [address] RAD - Ultrasound Reporton RAD - Ultrasound Report [id number] 0CD:127 Normal [facility] US SCROTUMon 10-17-2022 US SCROTUM EXAM: US SCROTUM HISTORY: Disorder of male genital organ . This is an 81-year-old with multiple painful palpable lumps and the scrotum for the past month. COMPARISON: None. TECHNIQUE: Multiple sonographic images of the testicles and scrotum were obtained, supplemented with Doppler. FINDINGS: The right testicle measures 4.3 x 3.5 x 2.8 cm. Homogeneous echoes are noted throughout, without evidence of a nodule within. The vasculature is intact with a normal Doppler study. The epididymis is unremarkable. There is no evidence of a hydrocele. Along the superior aspect outside of the right testicle is a hyperechoic nodule measuring 3.0 x 2.1 x 1.4 cm without increased vascularity. The left testicle measures 3.4 x 2.9 x 2.5 cm. Homogeneous echoes are noted throughout, without evidence of a nodule within. The vasculature is intact with a normal Doppler study. A cyst is seen in the epididymis measuring 2.0 x 1.7 x 1.5 cm. The epididymis otherwise appears unremarkable. There is no evidence of a hydrocele. IMPRESSION: Each testicle testicle appears unremarkable. No abnormality is identified within. There is normal vascularity bilaterally. The epididymis on the right is intact. The epididymis on the left has a cyst within. Superior to the right testicle is a solid nodule which appears to correspond to at least one of the palpable lumps reported by the patient. The etiology is uncertain. Comparison with a previous study may be helpful. Electronically authenticated by: JERMAIN BROWN Date: 2022-10-17 15:[address] [facility] Screenson 10-10-2022 Screens [id number] 0CD:127 Normal [facility] Patient Educationon 10-09-19 Patient Education Urology Benign Prostatic Hyperplasia Benign prostatic hyperplasia (BPH) is an enlarged prostate gland that is caused by the normal aging process and not by cancer. The prostate is a walnut-sized gland that is involved in the production of semen. It is located in front of the rectum and below the bladder. The bladder stores urine and the urethra is the tube that carries the urine out of the body. The prostate may get bigger as a man gets older. An enlarged prostate can press on the urethra. This can make it harder to pass urine. The build-up of urine in the bladder can cause infection. Back pressure and infection may progress to bladder damage and kidney (renal) failure. What are the causes? This condition is part of a normal aging process. However, not all men develop problems from this condition. If the prostate enlarges away from the urethra, urine flow will not be blocked. If it enlarges toward the urethra and compresses it, there will be problems passing urine. What increases the risk? This condition is more likely to develop in men over the age of 50 years. What are the signs or symptoms? Symptoms of this condition include: ? Getting up often during the night to urinate. ? Needing to urinate frequently during the day. ? Difficulty starting urine flow. ? Decrease in size and strength of your urine stream. ? Leaking (dribbling) after urinating. ? Inability to pass urine. This needs immediate treatment. ? Inability to completely empty your bladder. ? Pain when you pass urine. This is more common if there is also an infection. ? Urinary tract infection (UTI). How is this diagnosed? This condition is diagnosed based on your medical history, a physical exam, and your symptoms. Tests will also be done, such as: ? A post-void bladder scan. This measures any amount of urine that may remain in your bladder after you finish urinating. ? A digital rectal exam. In a rectal exam, your health care provider checks your prostate by putting a lubricated, gloved finger into your rectum to feel the back of your prostate gland. This exam detects the size of your gland and any abnormal lumps or growths. ? An exam of your urine (urinalysis). ? A prostate specific antigen (PSA) screening. This is a blood test used to screen for prostate cancer. ? An ultrasound. This test uses sound waves to electronically produce a picture of your prostate gland. Your health care provider may refer you to a specialist in kidney and prostate diseases (urologist). How is this treated? Once symptoms begin, your health care provider will monitor your condition (active surveillance or watchful waiting). Treatment for this condition will depend on the severity of your condition. Treatment may include: ? Observation and yearly exams. This may be the only treatment needed if your condition and symptoms are mild. ? Medicines to relieve your symptoms, including: ? Medicines to shrink the prostate. ? Medicines to relax the muscle of the prostate. ? Surgery in severe cases. Surgery may include: ? Prostatectomy. In this procedure, the prostate tissue is removed completely through an open incision or with a laparoscope or robotics. ? Transurethral resection of the prostate (TURP). In this procedure, a tool is inserted through the opening at the tip of the penis (urethra). It is used to cut away tissue of the inner core of the prostate. The pieces are removed through the same opening of the penis. This removes the blockage. ? Transurethral incision (TUIP). In this procedure, small cuts are made in the prostate. This lessens the prostate's pressure on the urethra. ? Transurethral microwave thermotherapy (TUMT). This procedure uses microwaves to create heat. The heat destroys and removes a small amount of prostate tissue. ? Transurethral needle ablation (TUNA). This procedure uses radio frequencies to destroy and remove a small amount of prostate tissue. ? Interstitial laser coagulation (ILC). This procedure uses a laser to destroy and remove a small amount of prostate tissue. ? Transurethral electrovaporization (TUVP). This procedure uses electrodes to destroy and remove a small amount of prostate tissue. ? Prostatic urethral lift. This procedure inserts an implant to push the lobes of the prostate away from the urethra. Follow these instructions at home: ? Take thvm-fhv-fvesfvr and prescription medicines only as told by your health care provider. ? Monitor your symptoms for any changes. Contact your health care provider with any changes. ? Avoid drinking large amounts of liquid before going to bed or out in public. ? Avoid or reduce how much caffeine or alcohol you drink. ? Give yourself time when you urinate. ? Keep all follow-up visits as told by your health care provider. This is important. Contact a health care provider if: ? You have unexplained back pain. ? Your symptoms do not get better with treatment. ? You d (more content not included)... Normal [facility] Urology Office/Clinic Noteon 10-09-2022 Urology Office/Clinic Note Chief Complaint Lumps on testicles. HPI Staff Steve is a 81 y/o male here for lumps on both of his testicles. 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 He states they are bilateral and there are roughly 3. Pt states that they are painful but he noticed the lump before the pain. Dysuria: _denies Incomplete bladder emptying: _denies Hematuria: _denies Frequency: _denies Urgency: _denies Nocturia: _1x Stream: _weak Leaking: _denies Post void dripping: _denies Wearing pads/ Depends: _denies Urge incontinence: _denies Stress incontinence: _denies Incontinence without Sensory Awareness: _denies Abdominal pain: _denies Flank pain: _denies Sexual complaints: _ History of Present Illness Tests Reviewed: Reviewed UA. I have reviewed and verified the staff HPI to be accurate for this encounter. I have reviewed the previous health record information and history for this patient from Dr. Flores There have been no associated fever, chills, flank pain, or blood in the urine. Denies any urinary infections since last encounter. Review of Systems PHQ Score Initial Depression Screen Score: 0 ROS - Provider Constitutional: denies weight loss, denies hot flashes. Eyes: denies eye problems. Gastrointestinal: denies nausea, denies vomiting. Cardiovascular: denies chest pain or angina. Integumentary: no dryness Musculoskeletal: denies musculoskeletal symptoms. ENMT: denies otolaryngeal symptoms. Respiratory: no shortness of breath. Heme/Lymph: denies easy bleeding tendency, denies easy bruising tendency. Psychiatric: no confusion, no anxiety. Genitourinary: denies dysuria, denies hematuria, denies discharge, denies urinary frequency, denies urinary hesitancy, denies nocturia, denies incontinence, denies genital sores, denies decreased libido, and denies erectile dysfunction. Physical Exam General Appearance: alert, no distress, well nourished, well developed male. Genitourinary: normal scrotum, normal testes, normal urethra, normal epididymis, normal vas deferens/spermatic cord. Flank Pain: none. Bladder: nonpalpable. Assessment/Plan 1. Asymptomatic microscopic hematuria (R31.21: Asymptomatic microscopic hematuria) UA today shows trace-intact blood pt denies gross hematuria pt has a hx of gross hematuria neg fish/cytol 01/15/22 (negative complete workup) pt knows to monitor for any visible blood or blood clots in his urine and to contact our office if he develops any. 2. Renal cyst (N28.1: Cyst of kidney, acquired) Left upper pole exophytic renal cyst, 1.3cm. No hydronephrosis, no hydroureter. Seen on prior CT 3. BPH with obstruction/lower urinary tract symptoms (N40.1: Benign prostatic hyperplasia with lower urinary tract symptoms) IPSS(7) 4. Scrotal mass (N50.89: Other specified disorders of the male genital organs) most of a scrotal lipoma bilaterally These are moveable. 3 were observed, which are moveable 1 LT subcutaneous, 2 RT subcutaneous (but within the scrotal) tenderness w/o touching at times (the one on the left above left testis) treatment options include simple monitoring versus operative intervention with excision which would require bilateral scrotal incisions. He would like to proceed with just monitoring at this time instead of being more aggressive. will order scrotal ultrasound study. The patient is aware that this may not shed very much information on these masses. We also discussed that removal does not guarantee recurrence. He has multiple lipomas over his body and this may be another location for their recurrence. Follow-up With When Contact Information [employer] [place], Chrissie [place], URL [address] [place] [phone]- Additional Instructions: Patient Education Benign Prostatic Hyperplasia I, Lela Cifuentes, personally scribed for Dr. Sotelo on 10/09/2022 16:10:16. . Documentation recorded by the scribe, Lela Cifuentes, accurately reflects the services(s) I performed and decisions made by me. Authenticated by Dr. Sotelo on 10/09/2022 16:58:19. Problem List/Past Medical History Ongoing Asymptomatic microscopic hematuria Benign localized prostatic hyperplasia with lower urinary tract symptoms (LUTS) BPH with obstruction/lower urinary tract symptoms Gross hematuria Renal cyst Scrotal mass Historical No qualifying data Procedure/Surgical History Cystoscopy (01/15/2022), Colonoscopy, Tonsillectomy. Medications Cipro 500 mg Tab, 500 mg= 1 tab(s), Oral, As Directed, Not taking Allergies No Known Medication Allergies Social History Tobacco Former smoker, quit more than 30 days ago Tobacco Use:., 01/15/2022 Family History Alcoholism: Brother. Drug addiction: Brother. Liver cancer: Brother. Immunizations Vaccine Date Status SARS-CoV-2 (COVID-19) mRNA BNT-162b2 vax (more content not included)... Normal [facility] Comment on above: Result Comment: Elec tronically Signed By: Chrissie SOTELO MD\.br\Date and Time Signed: 10/09/22 17:01 EST\.br\Electronically Co-Signed By: Lela Cifuentes\.br\Date and Time Co-Signed: 10/09/22 16:[address] ABD/PELV W CONon 12-03-[address] ABD/PELV W CON HISTORY: Juan hematuria TECHNIQUE: CT images were obtained of the abdomen and pelvis following the administration of intravenous contrast during portal venous and delayed phases. Enteric contrast was administered. Dose reduction techniques were achieved by using automated exposure control and/or adjustment of mA and/or kV according to patient size and/or use of iterative reconstruction technique. COMPARISON: None available FINDINGS: Lung Bases: Bibasilar atelectasis with subpleural reticulation, likely a degree of fibrosis. Lower Heart: Unremarkable. Liver: Normal contour. No focal lesion. No intrahepatic biliary ductal dilation. Gallbladder: Unremarkable. Pancreas: Uniform enhancement. No ductal dilation. No peripancreatic inflammatory change. Spleen: Unremarkable. Adrenal Glands: Normal. Kidneys / Ureters / Bladder: Symmetric renal enhancement. Left upper pole exophytic renal cyst, 1.3 cm. Small bilateral extrarenal pelvises. No hydronephrosis. No hydroureter. Unremarkable bladder with posterior prostatic impression. Adequate opacification of the bilateral upper tracts without filling defect. Intermittent opacification of the distal most left ureter, likely due to peristalsis. Lower esophagus / Stomach: Unremarkable GE junction. Under distended stomach. Bowel / Mesentery: No evidence of obstruction. No free intraabdominal air. Normal appendix. Lymph Nodes: No adenopathy. Vasculature: No aneurysmal dilation. Scattered atherosclerotic calcifications of the aorta and its major branches. Reproductive Organs: Prominent prostate measuring 4.6 cm in transverse dimension. Extraperitoneal Soft Tissues: Unremarkable. Bones: Multilevel degenerative changes of the visualized spine. No concerning lytic or blastic process. IMPRESSION: 1. Adequate opacification of the upper urinary tract without CT evidence for etiology of hematuria. Limited evaluation of the bladder. 2. Left upper pole renal cyst No suspicious renal mass. 3. No acute intra-abdominal findings. Electronically authenticated by: KINA MAHMOOD Date: 2021-12-02 08:29 Normal [facility] CBC AUTO DIFFon 11-22-2021 BASO # 0.0 103/ul Normal 0.0-0.1 [facility] Comment on above: Performed By: #### C BC #### [facility] [address] [address] [address] Ever Kenny Basophils/100 WBC (Bld) 0.2 % Normal 0.2-2.0 [facility] Comment on above: Performed By: #### C BC #### [facility] [address] [address] [address] Ever Kenny EO # 0.3 103/ul Normal 0.0-0.7 [facility] Comment on above: Performed By: #### C BC #### [facility] [address] [address] [address] Ever Kenny Eosinophils/100 WBC (Bld) 5.5 % Normal 0.9-7.0 [facility] Comment on above: Performed By: #### C BC #### [facility] [address] [place] [address] Dr. Ever Kenny Erythrocyte distribution width (RBC) [Ratio] 12.8 % Normal 11.0-15.0 [facility] Comment on above: Performed By: #### C BC #### [facility] [address] [place] [address] Dr. Ever Kenny Hematocrit (Bld) [Volume fraction] 47.1 % Normal 42.0-54.0 [facility] Comment on above: Performed By: #### C BC #### [facility] [address] [place] [address] Dr. Ever Kenny Hemoglobin (Bld) [Mass/Vol] 15.2 g/dL Normal 14.0-18.0 [facility] Comment on above: Performed By: #### C BC #### [facility] [address] [place] [address] Dr. Ever Kenny IG # 0.03 10e3/ul Normal 0.00-0.03 [facility] Comment on above: Performed By: #### C BC #### [facility] [address] [place] [address] Dr. Ever Kenny IG % 0.5 % Normal 0.0-0.5 [facility] Comment on above: Performed By: #### C BC #### [facility] [address] [place] [address] Dr. Ever Kenny LYMPH # 1.7 103/ul Normal 1.2-3.8 [facility] Comment on above: Performed By: #### C BC #### [facility] [address] [place] [address] Dr. Ever Kenny Lymphocytes/100 WBC (Bld) 26.9 % Normal 20.5-60.0 [facility] Comment on above: Performed By: #### C BC #### [facility] [address] [place] [address] Dr. Ever Kenny MANUAL DIFF REQ NO Normal [facility] Comment on above: Performed By: #### C BC #### [facility] [address] [place] [address] Dr. Ever Kenny MCH (RBC) [Entitic mass] 31.6 pg Normal 25.9-34.0 [facility] Comment on above: Performed By: #### C BC #### [facility] [address] [place] [address] Dr. Ever Kenny MCHC (RBC) [Mass/Vol] 32.3 g/dL Normal 29.9-35.2 [facility] Comment on above: Performed By: #### C BC #### [facility] [address] [place] [address] Dr. Ever Kenny MCV (RBC) [Entitic vol] 97.9 fL Critically high 80.0-94.0 [facility] Comment on above: Performed By: #### C BC #### [facility] [address] [place] [address] Dr. Ever Kenny MONO # 0.7 103/ul Normal 0.3-0.8 [facility] Comment on above: Performed By: #### C BC #### [facility] [address] [place] [address] Dr. Ever Kenny Monocytes/100 WBC (Bld) 11.1 % Normal 1.7-12.0 [facility] Comment on above: Performed By: #### C BC #### [facility] [address] [place] [address] Dr. Ever Kenny NEUT # 3.4 103/ul Normal 1.4-6.5 [facility] Comment on above: Performed By: #### C BC #### [facility] [address] [place] [address] Dr. Ever Kenny Neutrophils/100 WBC (Bld) 55.8 % Normal 43.0-75.0 [facility] Comment on above: Performed By: #### C BC #### [facility] [address] [place] [address] Dr. Ever Kenny Platelet mean volume (Bld) [Entitic vol] 9.2 fL Critically low 9.5-13.5 [facility] Comment on above: Performed By: #### C BC #### [facility] [address] [address] [address] Ever Kenny PLT 222 103/ul Normal 150-450 [facility] Comment on above: Performed By: #### C BC #### [facility] [address] [address] [address] Ever Kenny RBC 4.81 106/ul Normal 4.70-6.10 [facility] Comment on above: Performed By: #### C BC #### [facility] [address] [address] [address] Ever Kenny WBC 6.1 103/ul Normal 4.0-11.0 [facility] Comment on above: Performed By: #### C BC #### [facility] [address] [place] [address] Dr. Ever Kenny LIPID PROFILEon 11-22-2021 CHOL-HDL RATIO NORM SEE BELOW Normal [facility] Comment on above: Result Comment: 3.3 - 4.4 LOW RISK 4.4 - 7.1 AVERAGE RISK 7.1 - 11.0 MODERATE RISK >11.0 HIGH RISK Performed By: #### L IPID, CMP #### [facility] [address] [place] [address] Dr. Ever Kenny Cholesterol [Mass/Vol] 206 mg/dL Critically high <=200 [facility] Comment on above: Performed By: #### L IPID, CMP #### [facility] [address] [place] [address] Dr. Ever Kenny Cholesterol in HDL [Mass/Vol] 57 mg/dL Normal [facility] Comment on above: Performed By: #### L IPID, CMP #### [facility] [address] [place] [address] Dr. Ever Kenny Cholesterol in LDL [Mass/Vol] 129.4 mg/dL Normal [facility] Comment on above: Performed By: #### L IPID, CMP #### [facility] [address] [place] [address] Dr. Ever Kenny Cholesterol.total/Cho lesterol in HDL [Mass ratio] 3.6 {ratio} Normal [facility] Comment on above: Performed By: #### L IPID, CMP #### [facility] [address] [address] [address] Ever Kenny HDL NORMAL > or = 60 mg/dl - LO W CARDIOVASCULAR RISK <40 mg/dl - HIGH CARDIOVASCULAR RISK Normal [facility] Comment on above: Performed By: #### L IPID, CMP #### [facility] [address] [place] [address] Dr. Ever Kenny LDL CALC NORMAL SEE BELOW Normal [facility] Comment on above: Result Comment: <100 mg/dl OPTIMAL 100 - 129 mg/dl NEAR OR ABOVE OPTIMAL 130 - 159 mg/dl BORDERLINE HIGH 160 - 189 mg/dl HIGH >190 mg/dl VERY HIGH Performed By: #### L IPID, CMP #### [facility] [address] [place] [address] Dr. Ever Kenny Triglyceride [Mass/Vol] 98 mg/dL Normal <=150 [facility] Comment on above: Performed By: #### L IPID, CMP #### [facility] [address] [address] [address] Ever Kenny VLDL CALC 19.6 mg/dL Normal [facility] Comment on above: Performed By: #### L IPID, CMP #### [facility] [address] [place] [address] Dr. Ever Kenny PROF 14(COMP METB)on 022 Albumin [Mass/Vol] 3.9 g/dL Normal 3.5-5.0 [facility] Comment on above: Performed By: #### L IPID, CMP #### [facility] [address] [place] [address] Dr. Ever Kenny Albumin/Globulin [Mass ratio] 1.3 {ratio} Normal [facility] Comment on above: Performed By: #### L IPID, CMP #### [facility] [address] [place] [address] Dr. Ever Kenny ALP [Catalytic activity/Vol] 52 U/L Normal 38-126 [facility] Comment on above: Performed By: #### L IPID, CMP #### [facility] [address] [place] [address] Dr. Ever Kenny ALT [Catalytic activity/Vol] 24 U/L Normal 21-72 [facility] Comment on above: Performed By: #### L IPID, CMP #### [facility] [address] [address] [address] Ever Kenny Anion gap [Moles/Vol] 9.8 mmol/L Normal [facility] Comment on above: Performed By: #### L IPID, CMP #### [facility] [address] [address] [address] Ever Kenny AST [Catalytic activity/Vol] 15 U/L Critically low 17-59 [facility] Comment on above: Performed By: #### L IPID, CMP #### [facility] [address] [place] [address] Dr. Ever Kenny Bilirubin [Mass/Vol] 0.7 mg/dL Normal 0.2-1.3 [facility] Comment on above: Performed By: #### L IPID, CMP #### [facility] [address] [place] [address] Dr. Ever Kenny Calcium [Mass/Vol] 8.8 mg/dL Normal 8.4-10.2 [facility] Comment on above: Performed By: #### L IPID, CMP #### [facility] [address] [place] [address] Dr. Ever Kenny Chloride [Moles/Vol] 106 mmol/L Normal 98-107 [facility] Comment on above: Performed By: #### L IPID, CMP #### [facility] [address] [place] [address] Dr. Ever Kenny CO2 [Moles/Vol] 29.5 mmol/L Normal 22.0-30.0 [facility] Comment on above: Performed By: #### L IPID, CMP #### [facility] [address] [place] [address] Dr. Ever Kenny Creatinine [Mass/Vol] 1.05 mg/dL Normal 0.66-1.25 [facility] Comment on above: Performed By: #### L IPID, CMP #### [facility] [address] [address] [address] Ever Kenny EGFR-AF IVORIAN >60 Normal >=[address] [facility] Comment on above: Performed By: #### L IPID, CMP #### [facility] [address] [address] [address] Ever Kenny EGFR-NON AF IVORIAN >60 Normal >=60 [facility] Comment on above: Performed By: #### L IPID, CMP #### [facility] [address] [address] [address] Ever Kenny Globulin (S) [Mass/Vol] 2.9 g/dL Normal [facility] Comment on above: Performed By: #### L IPID, CMP #### [facility] [address] [address] [address] Ever Kenny Glucose [Mass/Vol] 105 mg/dL Normal 74-106 [facility] Comment on above: Performed By: #### L IPID, CMP #### [facility] [address] [address] [address] Ever Kenny Potassium [Moles/Vol] 4.3 mmol/L Normal 3.4-5.0 [facility] Comment on above: Performed By: #### L IPID, CMP #### [facility] [address] [address] [address] Ever Kenny Protein [Mass/Vol] 6.8 g/dL Normal 6.1-8.2 [facility] Comment on above: Performed By: #### L IPID, CMP #### [facility] [address] [address] [address] Ever Kenny Sodium [Moles/Vol] 141 mmol/L Normal 137-145 [facility] Comment on above: Performed By: #### L IPID, CMP #### [facility] [address] [address] [address] Ever Kenny Urea nitrogen [Mass/Vol] 19.0 mg/dL Normal 9.0-20.0 [facility] Comment on above: Performed By: #### L IPID, CMP #### [facility] [address] [address] [address] Ever Kenny Urea nitrogen/Creatinine [Mass ratio] 18.1 mg/mg Normal [facility] Comment on above: Performed By: #### L IPID, CMP #### [facility] [address] [address] [address] Ever Kenny UA (CLEAN/CATCH) MICROSCOPIC IF INDICATEon 11-22-2021 Bilirubin Ql (U) Negative Normal NEGATIVE [facility] Comment on above: Performed By: #### U LAYLA UMICRO #### [facility] [address] [address] [address] Ever Kenny Clarity (U) CLEAR Normal CLEAR [facility] Comment on above: Performed By: #### U LAYLA UMICRO #### [facility] [address] [place] [address] Dr. Ever Kenny Color (U) LT. YELLOW Normal YELLOW [facility] Comment on above: Performed By: #### U LAYLA UMICRO #### [facility] [address] [address] [address] Ever Kenny Glucose Ql (U) Negative Normal NEGATIVE [facility] Comment on above: Performed By: #### Will RICH UMICRO #### [facility] [address] [place] [address] Dr. Ever Kenny Hemoglobin Ql (U) MODERATE Abnormal NEGATIVE [facility] Comment on above: Performed By: #### Will RICH UMICRO #### [facility] [address] [address] [address] Ever Kenny Ketones Ql (U) Negative Normal NEGATIVE [facility] Comment on above: Performed By: #### U LAYLA UMICRO #### [facility] [address] [address] [address] Ever Kenny LEUKOCYTES Negative Normal NEGATIVE [facility] Comment on above: Performed By: #### U LAYLA UMICRO #### [facility] [address] [address] [address] Ever Kenny Nitrite Ql (U) Negative Normal NEGATIVE [facility] Comment on above: Performed By: #### Will RICH UMICRO #### [facility] [address] [place] [address] Dr. Ever Kenny pH (U) 7.0 [pH] Normal 5-9 [facility] Comment on above: Performed By: #### Will RICH UMICRO #### [facility] [address] [place] [address] Dr. Ever Kenny SPEC GRAVITY 1.010 Normal 1.005-<=1.[address] [facility] Comment on above: Performed By: #### Will RICH UMICRO #### [facility] [address] [place] [address] Dr. Ever Kenny UA PROTEIN Negative Normal NEGATIVE/ TRACE [facility] Comment on above: Performed By: #### Will RICH UMICRO #### [facility] [address] [place] [address] Dr. Ever Kenny UR MICRO IND INDICATED Normal [facility] Comment on above: Performed By: #### FAIZA WARRENICRO #### [facility] [address] [place] [address] Dr. Ever Kenny Urobilinogen Qn (U) 0.2 {Jaleel'U}/dL Normal 0.2 - 1. 0 [facility] Comment on above: Performed By: #### Will RICH UMICRO #### [facility] [address] [place] [address] Dr. Ever Kenny URINE MICROSCOPIC ONLYon BACTERIA NONE SEEN Normal NONE SEEN [facility] Comment on above: Performed By: #### Will RICH UMICRO #### [facility] [address] [place] [address] Dr. Ever Kenny Bacteria identified Cx Nom (U) NOT INDICATED Normal [facility] Comment on above: Performed By: #### Will RICH UMICRO #### [facility] [address] [place] [address] Dr. Ever Kenny CAST NONE SEEN Normal NONE SEEN [facility] Comment on above: Performed By: #### U ARMICR, UMICRO #### [facility] [address] [address] [address] Ever Kenny Crystals LM Nom (Urine sed) NONE SEEN Normal NONE SEEN [facility] Comment on above: Performed By: #### U ARMICR, UMICRO #### [facility] [address] [address] [address] Ever Kenny Epithelial cells LM Ql (Urine sed) NONE SEEN Normal NONE SEEN /RARE [facility] Comment on above: Performed By: #### U ARMICR, UMICRO #### [facility] [address] [address] [address] Ever Kenny MUCOUS SMALL Abnormal NONE SEEN [facility] Comment on above: Performed By: #### U ARMICR, UMICRO #### [facility] [address] [address] [address] Ever Kenny RBC 0-2 Normal 0-2 [facility] Comment on above: Performed By: #### U ARMICR, UMICRO #### [facility] [address] [address] [address] Ever Kenny SPERMATOZOA, UR PRESENT Abnormal [facility] Comment on above: Performed By: #### U ARMICR, UMICRO #### [facility] [address] [address] [address] Ever Kenny WBC NONE SEEN Normal NONE SEEN [facility] Comment on above: Performed By: #### U ARMICR, UMICRO #### [facility] [address] [address] [address] Ever Kenny Vital Signs Date Time Vital Sign Value Performing Clinician Facility 09-08-2023 12:00-0500 Body height 168.91 cm Jeannie Mclean Other [facility] Other 09-08-2023 12:00-0500 Body mass index (BMI) [Ratio] 26.8 kg/m2 Jeannie Mclean Other [facility] Other 09-08-2023 12:00-0500 Body temperature 98.9 [degF] Jeannie Mclean Other [facility] Other 09-08-2023 12:00-0500 Body weight 76.48 kg Jeannie Mclean Other [facility] Other 09-08-2023 12:00-0500 Respiratory rate 18 /min Jeannie Mclean Other [facility] Other 09-08-2023 12:00-0500 SaO2% (BldA) [Mass fraction] 93 % Jeannie Mclean Other [facility] Other 08-13-2023 10:20-0500 Body height 168.91 cm Jama King Other [facility] Other 08-13-2023 10:20-0500 Body mass index (BMI) [Ratio] 27.42 kg/m2 Jama Christine Other [facility] Other 08-13-2023 10:20-0500 Body weight 78.25 kg Jama King Other [facility] Other 08-13-2023 10:20-0500 Diastolic blood pressure 70 mm[Hg] Jama Scovanner Other [facility] Other 08-13-2023 10:20-0500 Systolic blood pressure 132 mm[Hg] Jama Scovanner Other [facility] Other 07-09-2023 10:20-0400 Body height 168.91 cm Jama King Other [facility] Other 07-09-2023 10:20-0400 Body mass index (BMI) [Ratio] 27.34 kg/m2 Jama Ehatilio Other [facility] Other 07-09-2023 10:20-0400 Body weight 78.02 kg Jama Scovanner Other [facility] Other 07-09-2023 10:20-0400 Diastolic blood pressure 67 mm[Hg] Jama Scovanner Other [facility] Other 07-09-2023 10:20-0400 Systolic blood pressure 129 mm[Hg] Jama Scovanner Other [facility] Other 03-04-2023 09:03-0400 Blood Pressure Location Chrissie Hop [facility] 03-04-2023 09:03-0400 Diastolic blood pressure 78 mm[Hg] Chrissie Hop [facility] 03-04-2023 09:03-0400 Heart rate 68 /min Chrissie Hop [facility] 03-04-2023 09:03-0400 Respiratory rate 16 /min Chrissie Hop [facility] 03-04-2023 09:03-0400 Systolic blood pressure 128 mm[Hg] Chrissie COOK [facility] 12-18-2022 11:15-0400 Body height 168.91 cm Jeannie Mclean Other [facility] [employer] Other 12-18-2022 11:15-0400 Body mass index (BMI) [Ratio] 29.41 kg/m2 Jeannie Mclean Other [facility] Other 12-18-2022 11:15-0400 Body temperature 97.1 [degF] Jeannie Mclean Other [facility] Other 12-18-2022 11:15-0400 Body weight 83.92 kg Jeannie Mclean Other [facility] Other 12-18-2022 11:15-0400 Diastolic blood pressure 75 mm[Hg] Jeannie Mclean Other [facility] Other 12-18-2022 11:15-0400 Respiratory rate 18 /min Jeannie Mclean Other [facility] Other 12-18-2022 11:15-0400 SaO2% (BldA) [Mass fraction] 96 % Jeannie Mclean Other [facility] Other 12-18-2022 11:15-0400 Systolic blood pressure 125 mm[Hg] Jeannie Mclean Other [facility] Other 11-29-2022 12:25-0400 Body temperature 97.7 [degF] [facility] 11-29-2022 12:25-0400 Diastolic blood pressure 89 mm[Hg] [facility] 11-29-2022 12:25-0400 Heart rate 64 /min [facility] 11-29-2022 12:25-0400 Respiratory rate 18 /min [facility] 11-29-2022 12:25-0400 SaO2% (BldA) [Mass fraction] 97 % Chrissie SOTELO [facility] 11-29-2022 12:25-0400 Systolic blood pressure 139 mm[Hg] Chrissie SOTELO [facility] 11-29-2022 11:25-0400 Blood Pressure Location Chrissie SOTELO [facility] 11-29-2022 11:25-0400 Body temperature 97.7 [degF] Chrissie SOTELO [facility] 11-29-2022 11:25-0400 Diastolic blood pressure 72 mm[Hg] Chrissie SOTELO [facility] 11-29-2022 11:25-0400 Heart rate 62 /min Chrissie SOTELO [facility] 11-29-2022 11:25-0400 Respiratory rate 18 /min Chrissie SOTELO [facility] 11-29-2022 11:25-0400 SaO2% (BldA) [Mass fraction] 97 % Chrissie SOTELO [facility] 11-29-2022 11:25-0400 Systolic blood pressure 135 mm[Hg] Chrissie [facility]OTELO [facility] [facility] 11-29-2022 11:11-0400 Blood Pressure Location Chrissie SOTELO [facility] 11-29-2022 11:11-0400 Body temperature 96.8 [degF] Chrissie SOTELO [facility] 11-29-2022 11:11-0400 Diastolic blood pressure 68 mm[Hg] Chrissie SOTELO [facility] 11-29-2022 11:11-0400 Heart rate 61 /min Chrissie SOTELO [facility] 11-29-2022 11:11-0400 Respiratory rate 16 /min Chrissie SOTELO [facility] 11-29-2022 11:11-0400 SaO2% (BldA) [Mass fraction] 96 % Chrissie SOTELO [facility] 11-29-2022 11:11-0400 Systolic blood pressure 133 mm[Hg] Chrissie SOTELO [facility] 11-29-2022 11:01-0400 Blood Pressure Location Chrissie SOTELO [facility] 11-29-2022 10:40-0400 Respiratory rate 13 /min Chrissie SOTELO [facility] 11-29-2022 10:35-0400 Respiratory rate 12 /min Chrissie SOTELO [facility] 11-29-2022 10:30-0400 Respiratory rate 12 /min Chrissie SOTELO [facility] 11-29-2022 08:30-0400 Body temperature 97.7 [degF] Chrissie SOTELO [facility] 11-29-2022 08:30-0400 Heart rate 78 /min Chrissie SOTELO [facility] 11-21-2022 10:36-0400 Diastolic blood pressure 78 mm[Hg] Antoni P House Work Phone: [facility] 250 DO Work Phone: 11-21-2022 10:36-0400 Systolic blood pressure 122 mm[Hg] Antoni P House Work Phone: [facility] 250 DO Work Phone: 11-21-2022 10:34-0400 Body height 170.18 cm Antoni P House Work Phone: [facility] 250 DO Work Phone: 11-21-2022 10:34-0400 Body mass index (BMI) [Ratio] 28.98 kg/m2 Antoni P House Work Phone: [facility] 250 DO Work Phone: 11-21-2022 10:34-0400 Body surface area Derived from formula 1.96 m2 Antoni P House Work Phone: [facility] 250 DO Work Phone: 11-21-2022 10:34-0400 Body weight 83.92 kg Antoni P House Work Phone: [facility] 250 DO Work Phone: 11-21-2022 10:34-0400 Diastolic blood pressure 76 mm[Hg] Antoni P House Work Phone: [facility] 250 DO Work Phone: 11-21-2022 10:34-0400 Heart rate 67 /min Antoni P House Work Phone: [facility] 250 DO Work Phone: 11-21-2022 10:34-0400 Systolic blood pressure 124 mm[Hg] Antoni P House Work Phone: [facility] 250 DO Work Phone: 11-16-2022 09:42-0500 Diastolic blood pressure 78 mm[Hg] Chrissie SOTELO [facility] 11-16-2022 09:42-0500 Heart rate 60 /min Chrissie COOK [facility] 11-16-2022 09:42-0500 Mean blood pressure 96 mm[Hg] Chrissie COOK [facility] 11-16-2022 09:42-0500 Systolic blood pressure 132 mm[Hg] Chrissie COOK [facility] 11-16-2022 09:42-0500 Heart rate 60 /min Chrissie SOTELO [facility] 11-16-2022 09:42-0500 SaO2% (BldA) [Mass fraction] 98 % Chrissie SOTELO [facility] 11-16-2022 09:42-0500 Body temperature 97.88 [degF] Chrissie SOTELO [facility] 11-16-2022 09:41-0500 Diastolic blood pressure 78 mm[Hg] Chrissie SOTELO [facility] 11-16-2022 09:41-0500 Mean blood pressure 97 mm[Hg] Chrissie SOTELO [facility] 11-16-2022 09:41-0500 Systolic blood pressure 134 mm[Hg] Chrissie SOTELO [facility] 01-15-2022 13:36-0400 Blood Pressure Location Chino Flores Jr. [facility] 01-15-2022 13:36-0400 Diastolic blood pressure 55 mm[Hg] Chino Flores Jr. [facility] 01-15-2022 13:36-0400 Heart rate 73 /min Chino Flores Jr. [facility] 01-15-2022 13:36-0400 Systolic blood pressure 128 mm[Hg] Chino Flores Jr. [facility] Encounters Encounter Date Encounter Type Care Provider Facility Start: 03-09-2024 ambulatory Chrissie SOTELO Facility :[facility] Start: 10-01-2023 End: 10-01-2023 ambulatory SHAIKH ILYAD Not Available Start: 09-08-2023 End: 09-08-2023 ambulatory Jeannie Mclean Other [employer] Other Start: 09-08-2023 Office outpatient visit 25 minutes Jeannie Mclean [facility] Start: 08-28-2023 End: 08-28-2023 ambulatory SHAIKH LORINWWAD Not Available Start: 08-13-2023 End: 08-13-2023 ambulatory Jama Scovanner Other [employer] Other Start: 08-13-2023 Office outpatient visit 15 minutes Jama Scovanner [facility] Start: 07-09-2023 End: 07-09-2023 ambulatory Jama Scovanner Other [employer] Other Start: 07-09-2023 Office outpatient ne w 30 minutes Jama Scovanner [facility] Start: 03-04-2023 End: 03-05-2023 ambulatory Chrissie SOTELO Facility:[facility] Start: 03-04-2023 End: 03-04-2023 Patient encounter procedure Chrissie Bradley GO [facility] Start: 01-21-2023 ambulatory Sam Ralf AMHADI Facility: [facility] Start: 12-21-2022 End: 12-22-2022 ambulatory Chrissiesudheer SOTELO Facility:[facility] Start: 12-21-2022 End: 12-21-2022 Patient encounter procedure Chrissie SOTELO [facility] Start: 12-18-2022 End: 12-18-2022 ambulatory Jeannie Mclean Other [employer] Other Start: 12-18-2022 Office outpatient visit 15 minutes Jeannie Vinay [facility] Start: 11-29-2022 End: 11-29-2022 ambulatory Chrissie SOTELO Facility:[facility] Start: 11-29-2022 End: 11-29-2022 Admission to same day surgery center Chrissie SOTELO [facility] Start: 11-21-[address] Antoni Cho Facility: Start: 11-21-2022 Office consultation new/estab patient 60 min Antoni Cho Work Phone: [facility] 250 DO Work Phone: Start: 11-16-2022 End: 11-17-[address] Antoni Cho Facility: Start: 11-16-2022 End: 11-16-2022 Patient encounter procedure Chrissie SOTELO [facility] Start: 10-17-2022 End: 10-18-[address] CHRISSIE SOTELO Facility:[facility] Start: 10-09-2022 End: 10-10-2022 ambulatory Chrissie SOTELO Facility: [facility] Start: 10-09-2022 End: 10-09-2022 Patient encounter procedure Chrissie SOTELO [facility] Start: 01-15-2022 End: 01-15-2022 Patient encounter procedure Chino Flores Jr. [facility] Start: 12-01-2021 End: 12-02-[address] ANTONI CHO Facility:[facility] Start: 11-22-2021 End: 11-23-[address] ANTONI CHO Facility:[facility] Patient encounter status Antoni Cho Work Phone: [place] [address] [place] Work Phone: Procedures Date Procedure Procedure Detail Performing Clinician Start: 11-29-2022 Exploration of scrotum Chrissie GO Start: 11-29-2022 Spermatic cord struc ture (body structure) Chrissie GO Start: 01-15-2022 Cystoscopy Chino velazquez Jr. Start: 11-22-[address] LINDA SOTELO Comment on above: Performed By: #### P SAD #### [facility] [address] [place] [address] Dr. Ever Kenny Start: 09-09-2019 Total colonoscopy Sarah Cho Work Phone: Colonoscopy Chino Olivo Excision of lipoma Antoni Cho Work Phone: Tonsillectomy Chino rosa Tonsillectomy Antoni oswald Work Phone: Plan of Treatment Date Care Activity Detail Author Start: 11-12-2023 FUV, Provider: Taryn Real, Status: Pen, Time: 10:50 AM FUV, Provider: Taryn Real, Status: Pen, Time: 10:50 AM [place] [address] DO Work Phone: Immunizations Immunization Date Immunization Notes Care Provider Lorin palmer 07-10-2022 Pfizer COVID-19 Vac Bivalent 30 MCG/0.3ML Intramuscular Suspension Antoni Cho Work Phone: [facility] 06-15-2022 Fluzone High-Dose Quadrivalent 0.7 ML Intramuscular Suspension Prefilled Syringe Antoni Cho Work Phone: [place] [address] DO Work Phone: 06-15-2022 influenza virus vaccine, unspecified formulation Chrissie GO [facility] 08-10-2021 Pfizer-BioNTech COVID-19 Vacc 30 MCG/0.3ML Intramuscular Suspension Antoni P House Work Phone: [facility] 06-09-2021 SARS-CoV-2 (COVID-19 ) mRNA BNT-162b2 vax Chino Flores Jr. [facility] 12-08-2020 SARS-CoV-2 (COVID-19 ) mRNA BNT-162b2 vax Chino Flores Jr. [facility] 12-06-2020 Pfizer-BioNTech COVID-19 Vacc 30 MCG/0.3ML Intramuscular Suspension Antoni P House Work Phone: [facility] 11-14-2020 Pfizer-BioNTech COVID-19 Vacc 30 MCG/0.3ML Intramuscular Suspension Antoni P House Work Phone: [facility] 11-07-2020 SARS-CoV-2 (COVID-19 ) mRNA BNT-162b2 jenx Chino Flores Jr. [facility] 09-03-2020 influenza virus vaccine, unspecified formulation Chrissie SOTELO [facility] 09-03-2020 influenza, high dose seasonal, preservative-free Antoni P House Work Phone: [facility] 250 DO Work Phone: 09-03-2020 pneumococcal conjuga te vaccine, 13 valent Antoni P House Work Phone: [facility] 06-27-2019 influenza virus vaccine, unspecified formulation Chrissie SOTELO [facility] 06-27-2019 influenza, injectabl e, quadrivalent, preservative free Antoni Cho Work Phone: [facility] 250 DO Work Phone: 06-27-2019 pneumococcal polysaccharide vaccine, 23 valent Antoni Bradley [place] Work Phone: [facility] 09-12-2014 tetanus toxoid, redu brenda diphtheria toxoid, and acellular pertussis vaccine, adsorbed Jeannie Mclean Other [facility] [employer] Other Payers Date Payer Category Payer Medicare [id number] 2022 Private Health Insurance [id number] 1959 Medicare [id number] 1959 Private Health Insurance [facility] [id number] 1940 Unknown [id number] 2.16.84 [id number] 1940 Unknown [id number] 2.16.84 [id number] 1940 Unknown [id number] 2.16.84 [id number] 1940 Unknown [id number] 2.16. [id number] 1940 Unknown [id number] 2.16. [id number] 1940 Unknown [id number] 2.16.8 [id number] 1940 Unknown [id number] 2.16.8 [id number] 1940 Unknown [id number] 2.16.8 [id number] 1940 Unknown [id number] 2.16.8 [id number] 1940 Unknown [id number] 2.16.8 [id number] 1940 Unknown [id number] 2.16.8 [id number] 1940 Unknown [id number] 2.16.8 [id number] 1940 Unknown [id number] 2.16.84 [id number] 1940 Unknown [id number] 2.16.840 .[id number] Unknown Social History Date Type Detail Facility Start: 01-15-2022 End: 03-04-2023 Tobacco smoking status Ex-smoker (finding) [facility] Sex Assigned At Male [facility] Social alcohol use Social alcohol use [facility] 250 DO Work Phone: Comment on above: quit 1978; Functional Status Date Assessment Result Facility 03-04-2023 Functional Status N/A [facility] 12-21-2022 Functional Status N/A [facility] 11-16-2022 Functional Status No [facility] 10-09-2022 Functional Status N/A [facility] Clinical Notes 11-22-2021 to 09-08-2023 Note Date & Type Note Facility 09-08-2023 Evaluation note Encounter Date Diagnosis Assessment Notes Aug, Acute cough (ICD-10 - R05.1) Aug, Influenza A (ICD-10 - J10.1) Rapid COVID test negative today. Influenza A positive, B negative. Patient is currently out of window for Tamiflu medication. Encouraged supportive care, steroid as directed, Tessalon Perles and Albuterol Inhaler as needed, Tylenol as needed for body aches/fever. Increase fluids and rest. Encouraged use of cool mist humidifier. Follow-up with PCP in 2-3 days. Immediate eval for worsening SOB, difficulty breathing, chest pain, fevers that do not break with antipyretic or any other concerning symptoms as reviewed on patient education handout. Patient verbalizes understanding and is agreeable to treatment plan. Patient left in stable condition [employer] Other 2023 Evaluation note* Encounter Date Diagnosis Assessment Notes Treatment Notes Treatment Clinical Notes Aug, Diarrhea (ICD-10 - R19.7) Patient reports that he has had some improvement and will continue Levsin as directed, fiber, and probiotic without change RTO 3 months [employer] Other 10-31-2023 Evaluation note* Encounter Date Diagnosis Assessment Notes Treatment Notes Treatment Clinical Notes Jun, Diarrhea (ICD-10 - R19.7) This patient states his diarrhea started about 4 months ago. At it's worst, he was only going once, but he had urgency & was a large amount. The frequency & severity have improved somewhat. He reported to [facility] ER last month. Lab & stool studies will be requested. The patient should add fiber supplementation & probiotics. Dicyclomine was discussed with the patient. He states he was prescribed this at the start of the diarrhea but this did not help. Levsin will be added, TID. We will request his ER notes & also a copy of his last colonoscopy. Return visit here in one month [employer] Other 10-01-2023 History general Narrative - Reported* Type Description Date Medical History Hypercholesteremia Surgical History tonsillectomy and adenoidectomy Surgical History lipoma Surgical History colonoscopy Surgical History cataract removal 06/2023 Hospitalization History see above Hospitalization History [facility] for diarrhea 05/2023 [employer] Other 10-01-2023 History general Narrative - Reported* Type Description Date Medical History Hypercholesteremia Medical History diarrhea Surgical History tonsillectomy and adenoidectomy Surgical History lipoma Surgical History colonoscopy Surgical History cataract removal 06/2023 Hospitalization History see above Hospitalization History [facility] for diarrhea 05/2023 [employer] Other 06-26-2023 Hospital Discharge instructions Patient Education 03/04/2023 09:31:23 Hematuria, Adult Hematuria, Adult Hematuria is blood in the urine. Blood may be visible in the urine, or it may be identified with a test. This condition can be caused by infections of the bladder, urethra, kidney, or prostate. Otherpossible causes include: Kidney stones. Cancer of the urinary tract. Too much calcium in the urine. Conditions that are passed from parent to child (inherited conditions). Exercise that requires a lot of energy. Infections can usually be treated with medicine, and a kidney stone usually will pass through your urine. If neither of these is the cause of your hematuria, more tests may be needed to identify the cause of your symptoms. It is very important to tell your health care provider about any blood in your urine, even if it ispainless or the blood stops without treatment. Blood in the urine, when it happens and then stops and then happens again, can be a symptom of a very serious condition, including cancer. There is no pain in the initial stages of many urinary cancers. Follow these instructions at home: Medicines Take beim-oju-hurchzs and prescription medicines only as told by your health care provider. If you were prescribed an antibiotic medicine, take it as told by your health care provider. Do notstop taking the antibiotic even if you start to feel better. Eating and drinking Drink enough fluid to keep your urine pale yellow. It is recommended that you drink 3 4 quarts (2.83.8 L) a day. If you have been diagnosed with an infection, drinking cranberry juice in addition tolarge amounts of water is recommended. Avoid caffeine, tea, and carbonated beverages. These tend to irritate the bladder. Avoid alcohol because it may irritate the prostate (in males). General instructions If you have been diagnosed with a kidney stone, follow your health care provider's instructions about straining your urine to catch the stone. Empty your bladder often. Avoid holding urine for long periods of time. If you are female: ?After a bowel movement, wipe from front to back and use each piece of toilet paper only once. ?Empty your bladder before and after sex. Pay attention to any changes in your symptoms. Tell your health care provider about any changes or any new symptoms. It is up to you to get the results of any tests. Ask your health care provider, or the department that is doing the test, when your results will be ready. Keep all follow-up visits. This is important. Contact a health care provider if: You develop back pain. You have a fever or chills. You have nausea or vomiting. Your symptoms do not improve after 3 days. Your symptoms get worse. Get help right away if: You develop severe vomiting and are unable to take medicine without vomiting. You develop severe pain in your back or abdomen even though you are taking medicine. You pass a large amount of blood in your urine. You pass blood clots in your urine. You feel very weak or like you might faint. You faint. Summary Hematuria is blood in the urine. It has many possible causes. It is very important that you tell your health care provider about any blood in your urine, even ifit is painless or the blood stops without treatment. Take lbrb-lwv-iflhwvs and prescription medicines only as told by your health care provider. Drink enough fluid to keep your urine pale yellow. This information is not intended to replace advice given to you by your health care provider. Make sure you discuss any questions you have with your health care provider. Document Revised: 04/26/2021 Document Reviewed: 04/26/2021 [employer] Patient Education 2022 [employer]. Follow Up Care 12/21/2022 09:24:19 With:GO POTTS, Chrissie Bradley, URL Address: [address] [place] [address]- When:Within 1 Year(s) [facility] [place] [id number] Hospital Discharge instructions Patient Education 12/21/2022 09:11:46 Hematuria, Adult Hematuria, Adult Hematuria is blood in the urine. Blood may be visible in the urine, or it may be identified with a test. This condition can be caused by infections of the bladder, urethra, kidney, or prostate. Otherpossible causes include: Kidney stones. Cancer of the urinary tract. Too much calcium in the urine. Conditions that are passed from parent to child (inherited conditions). Exercise that requires a lot of energy. Infections can usually be treated with medicine, and a kidney stone usually will pass through your urine. If neither of these is the cause of your hematuria, more tests may be needed to identify the cause of your symptoms. It is very important to tell your health care provider about any blood in your urine, even if it ispainless or the blood stops without treatment. Blood in the urine, when it happens and then stops and then happens again, can be a symptom of a very serious condition, including cancer. There is no pain in the initial stages of many urinary cancers. Follow these instructions at home: Medicines Take omvv-ngj-qdlrttt and prescription medicines only as told by your health care provider. If you were prescribed an antibiotic medicine, take it as told by your health care provider. Do notstop taking the antibiotic even if you start to feel better. Eating and drinking Drink enough fluid to keep your urine clear or pale yellow. It is recommended that you drink 3 4 quarts (2.8 3.8 L) a day. If you have been diagnosed with an infection, it is recommended that you drink cranberry juice in addition to large amounts of water. Avoid caffeine, tea, and carbonated beverages. These tend to irritate the bladder. Avoid alcohol because it may irritate the prostate (men). General instructions If you have been diagnosed with a kidney stone, follow your health care provider's instructions about straining your urine to catch the stone. Empty your bladder often. Avoid holding urine for long periods of time. If you are female: ?After a bowel movement, wipe from front to back and use each piece of toilet paper only once. ?Empty your bladder before and after sex. Pay attention to any changes in your symptoms. Tell your health care provider about any changes or any new symptoms. It is your responsibility to get your test results. Ask your health care provider, or the department performing the test, when your results will be ready. Keep all follow-up visits as told by your health care provider. This is important. Contact a health care provider if: You develop back pain. You have a fever. You have nausea or vomiting. Your symptoms do not improve after 3 days. Your symptoms get worse. Get help right away if: You develop severe vomiting and are unable take medicine without vomiting. You develop severe pain in your back or abdomen even though you are taking medicine. You pass a large amount of blood in your urine. You pass blood clots in your urine. You feel very weak or like you might faint. You faint. Summary Hematuria is blood in the urine. It has many possible causes. It is very important that you tell your health care provider about any blood in your urine, even ifit is painless or the blood stops without treatment. Take pisj-xct-fnfevvd and prescription medicines only as told by your health care provider. Drink enough fluid to keep your urine clear or pale yellow. This information is not intended to replace advice given to you by your health care provider. Make sure you discuss any questions you have with your health care provider. Document Released: 08/26/2006 Document Revised: 01/20/2020 Document Reviewed: 09/28/2017 [employer] Patient Education 2020 [employer]. Follow Up Care 11/29/2022 14:24:46 With:GO POTTS, Chrissie Bradley, URL Address: [facility] [place] [id number]- When:02/20/2023 [facility] 04-11-2023 Evaluation note* Encounter Date Diagnosis Assessment Notes Treatment Notes Treatment Clinical Notes Dec, Puncture wound of right hand without foreign body, initial encounter (ICD-10 - S61.431A) Discussed diagnosis with patient. No FB found today on exam during procedure. Offered patient x-ray, patient declines at this time. Advised patient to wash area twice a day with soap and water. May keep open to air or cover if dirty. Follow-up for signs/symptoms of infection as discussed. Patient verbalizes understanding and is agreeable with treatment plan. [employer] Other 03-23-2023 Evaluation + Plan noteExtracted from: Title:SAFIA post op Author:Meek Avendano MD Date:11/29/22 Plan Transfer/Discharge: Transfer/Discharge Discharge when meets criteria ( From PACU to Ambulatory Surgery Unit, and To home ). Extracted from: Title:SAFIA GA Author:Meek Avendano MD Date:3/23/23 Plan [place] [employer] (ASA) physical status classification: Class II. Anesthetic Preoperative Plan: Anesthesia General. Future Appointments Appointment Date:12/21/2022 09:00:00 AM Scheduled Provider:Chrissie SOTELO MD Location[place] [place] [facility] Appointment Type:URO Office Visit [facility]03-23-2023 Hospital Discharge instructions Patient Education 11/29/2022 10:49:22 Post Op Patient Instructions - FT (Custom) (Custom) Follow Up Care 10/30/2022 08:14:31 With:CHACHA MULLINS Address: [address] [place] [address] Business (1) When: Unknown Comments:Call for followup appointment with Mindi Mullins PA-C or me within the next 2-3 weeks. Should you haveproblems prior to that visit, please let us know.No shower for two days. Keep scrotal support and ice intermittently for discomfort.Have a great day! [facility]03-15-2023 Note [id number]:127Maria Parham [facility] 10-09-2022 Hospital Discharge instructions Patient Education 10/09/2022 16:09:17 Benign Prostatic Hyperplasia Benign Prostatic Hyperplasia Benign prostatic hyperplasia (BPH) is an enlarged prostate gland that is caused by the normal agingprocess and not by cancer. The prostate is a walnut-sized gland that is involved in the production of semen. It is located in front of the rectum and below the bladder. The bladder stores urine and the urethra is the tube that carries the urine out of the body. The prostate may get bigger as a man gets older. An enlarged prostate can press on the urethra. This can make it harder to pass urine. The build-up of urine in the bladder can cause infection. Back pressure and infection may progress to bladder damage and kidney (renal) failure. What are the causes? This condition is part of a normal aging process. However, not all men develop problems from this condition. If the prostate enlarges away from the urethra, urine flow will not be blocked. If it enlarges toward the urethra and compresses it, there will be problems passing urine. What increases the risk? This condition is more likely to develop in men over the age of 50 years. What are the signs or symptoms? Symptoms of this condition include: Getting up often during the night to urinate. Needing to urinate frequently during the day. Difficulty starting urine flow. Decrease in size and strength of your urine stream. Leaking (dribbling) after urinating. Inability to pass urine. This needs immediate treatment. Inability to completely empty your bladder. Pain when you pass urine. This is more common if there is also an infection. Urinary tract infection (UTI). How is this diagnosed? This condition is diagnosed based on your medical history, a physical exam, and your symptoms. Tests will also be done, such as: A post-void bladder scan. This measures any amount of urine that may remain in your bladder after you finish urinating. A digital rectal exam. In a rectal exam, your health care provider checks your prostate by putting a lubricated, gloved finger into your rectum to feel the back of your prostate gland. This exam detects the size of your gland and any abnormal lumps or growths. An exam of your urine (urinalysis). A prostate specific antigen (PSA) screening. This is a blood test used to screen for prostate cancer. An ultrasound. This test uses sound waves to electronically produce a picture of your prostate gland. Your health care provider may refer you to a specialist in kidney and prostate diseases (urologist). How is this treated? Once symptoms begin, your health care provider will monitor your condition (active surveillance or watchful waiting). Treatment for this condition will depend on the severity of your condition. Treatment may include: Observation and yearly exams. This may be the only treatment needed if your condition and symptoms are mild. Medicines to relieve your symptoms, including: ?Medicines to shrink the prostate. ?Medicines to relax the muscle of the prostate. Surgery in severe cases. Surgery may include: ?Prostatectomy. In this procedure, the prostate tissue is removed completely through an open incision or with a laparoscope or robotics. ?Transurethral resection of the prostate (TURP). In this procedure, a tool is inserted through the opening at the tip of the penis (urethra). It is used to cut away tissue of the inner core of the prostate. The pieces are removed through the same opening of the penis. This removes the blockage. ?Transurethral incision (TUIP). In this procedure, small cuts are made in the prostate. This lessens the prostate's pressure on the urethra. ?Transurethral microwave thermotherapy (TUMT). This procedure uses microwaves to create heat. The heat destroys and removes a small amount of prostate tissue. ?Transurethral needle ablation (TUNA). This procedure uses radio frequencies to destroy and remove a small amount of prostate tissue. ?Interstitial laser coagulation (ILC). This procedure uses a laser to destroy and remove a small amount of prostate tissue. ?Transurethral electrovaporization (TUVP). This procedure uses electrodes to destroy and remove a small amount of prostate tissue. ?Prostatic urethral lift. This procedure inserts an implant to push the lobes of the prostate away from the urethra. Follow these instructions at home: Take kmre-hkj-kmoeqbj and prescription medicines only as told by your health care provider. Monitor your symptoms for any changes. Contact your health care provider with any changes. Avoid drinking large amounts of liquid before going to bed or out in public. Avoid or reduce how much caffeine or alcohol you drink. Give yourself time when you urinate. Keep all follow-up visits as told by your health care provider. This is important. Contact a health care provider if: You have unexplained back pain. Your symptoms do not get better with treatment. You develop side effects from the medicine you are taking. Your urine becomes very dark or has a bad smell. Your lower abdomen becomes distended and you have trouble passing your urine. Get help right away if: You have a fever or chills. You suddenly cannot urinate. You feel lightheaded, or very dizzy, or you faint. There are large amounts of blood or clots in the urine. Your urinary problems become hard to manage. You develop moderate to severe low back or flank pain. The flank is the side of your body between the ribs and the hip. These symptoms may represent a serious problem that is an emergency. Do not wait to see if the symptoms will go away. Get medical help right away. Call your local emergency services (911 in the [place] Do not drive yourself to the hospital. Summary Benign prostatic hyperplasia (BPH) is an enlarged prostate that is caused by the normal aging process and not by cancer. An enlarged prostate can press on the urethra. This can make it hard to pass urine. This condition is part of a normal aging process and is more likely to develop in men over the age of 50 years. Get help right away if you suddenly cannot urinate. This information is not intended to replace advice given to you by your health care provider. Make sure you discuss any questions you have with your health care provider. Document Released: 08/26/2006 Document Revised: 07/21/2019 Document Reviewed: 09/30/2017 [employer] Patient Education 2020 [employer]. Follow Up Care 10/05/2022 09:45:41 With:GO POTTS, Chrissie Bradley, URL Address: [address] [place] [address]- When: Unknown [facility] [id number] Hospital Discharge instructions Patient Education 01/15/2022 14:02:51 Hematuria, Adult Hematuria, Adult Hematuria is blood in the urine. Blood may be visible in the urine, or it may be identified with a test. This condition can be caused by infections of the bladder, urethra, kidney, or prostate. Otherpossible causes include: Kidney stones. Cancer of the urinary tract. Too much calcium in the urine. Conditions that are passed from parent to child (inherited conditions). Exercise that requires a lot of energy. Infections can usually be treated with medicine, and a kidney stone usually will pass through your urine. If neither of these is the cause of your hematuria, more tests may be needed to identify the cause of your symptoms. It is very important to tell your health care provider about any blood in your urine, even if it ispainless or the blood stops without treatment. Blood in the urine, when it happens and then stops and then happens again, can be a symptom of a very serious condition, including cancer. There is no pain in the initial stages of many urinary cancers. Follow these instructions at home: Medicines Take crne-gex-sxuyjnx and prescription medicines only as told by your health care provider. If you were prescribed an antibiotic medicine, take it as told by your health care provider. Do notstop taking the antibiotic even if you start to feel better. Eating and drinking Drink enough fluid to keep your urine clear or pale yellow. It is recommended that you drink 3 4 quarts (2.8 3.8 L) a day. If you have been diagnosed with an infection, it is recommended that you drink cranberry juice in addition to large amounts of water. Avoid caffeine, tea, and carbonated beverages. These tend to irritate the bladder. Avoid alcohol because it may irritate the prostate (men). General instructions If you have been diagnosed with a kidney stone, follow your health care provider's instructions about straining your urine to catch the stone. Empty your bladder often. Avoid holding urine for long periods of time. If you are female: ?After a bowel movement, wipe from front to back and use each piece of toilet paper only once. ?Empty your bladder before and after sex. Pay attention to any changes in your symptoms. Tell your health care provider about any changes or any new symptoms. It is your responsibility to get your test results. Ask your health care provider, or the department performing the test, when your results will be ready. Keep all follow-up visits as told by your health care provider. This is important. Contact a health care provider if: You develop back pain. You have a fever. You have nausea or vomiting. Your symptoms do not improve after 3 days. Your symptoms get worse. Get help right away if: You develop severe vomiting and are unable take medicine without vomiting. You develop severe pain in your back or abdomen even though you are taking medicine. You pass a large amount of blood in your urine. You pass blood clots in your urine. You feel very weak or like you might faint. You faint. Summary Hematuria is blood in the urine. It has many possible causes. It is very important that you tell your health care provider about any blood in your urine, even ifit is painless or the blood stops without treatment. Take fssi-hjt-cyeoosm and prescription medicines only as told by your health care provider. Drink enough fluid to keep your urine clear or pale yellow. This information is not intended to replace advice given to you by your health care provider. Make sure you discuss any questions you have with your health care provider. Document Released: 08/26/2006 Document Revised: 01/20/2020 Document Reviewed: 09/28/2017 [employer] Patient Education 2020 [employer]. Follow Up Care 01/03/2022 11:13:58 With:Mark Torres MD, Chino Leggett, URO Address: [facility] [address] , [place] [address]- When:01/15/2023 [facility] [id number] NotePROCEDURE: XR SHOULDER LT 2V or > COMPARISON: None. HISTORY: Pain of left shoulder joint FINDINGS: BONES:No acute fracture or dislocation. Moderate acromioclavicular and glenohumeral joint osteoarthropathy with joint space narrowing marginal osteophyte formation. Subchondral cystic change of the glenoid. SOFT TISSUES:Negative. No visible soft tissue swelling. EFFUSION:None visible. OTHER: Negative. IMPRESSION: Moderate osteoarthritis Electronically authenticated by: AQUILES SPAIN Date: [facility]-11[facility]22 [facility] Appointment Date:01/21/2023 10:30:00 AM Scheduled Provider:Chino Flores Jr., MD Location:[facility] Appointment Type:URO Office Visit Diagnostic Tests Pending * Urine Cytology ([facility]) 01/15/22 [facility] Evaluation + Plan note Future Appointments Appointment Date:01/21/2023 10:30:00 AM Scheduled Provider:Chino Flores Jr., MD Location:[facility] Appointment Type:URO Office Visit [facility] Evaluation + Plan note Future Appointments Appointment Date:11/29/2022 10:00:00 AM Scheduled Provider: Location:[facility] Appointment Type:Surgery FT Appointment Date:01/21/2023 10:30:00 AM Scheduled Provider:Chino Flores Jr., MD Location:[facility] Future App[facility]ments Appointment Date:03/04/2023 08:30:00 AM Scheduled Provider:[facility] Visit [facility] Evaluation + Plan note Future Appointments Appointment Date:03/09/2024 08:00:00 AM Scheduled Provider:Chrissie SOTELO MD Location:[facility] Appointment Type:URO Office Visit [facility] History general Narrative - Reported* Type Description Date Medical History Hypercholesteremia Surgical History tonsillectomy and adenoidectomy Surgical History lipoma Surgical History colonoscopy Hospitalization History see above [employer] Other Hospital course Narrative No data available for this section [facility] Hospital Discharge instructions No data available for this section [facility] No data available for this section [facility] Summary Purpose Family History No Family History Records FoundUnknown Family Member Name Dates Details Diagnosis unknown: Mother, F ather Status:Active Family history of malignant neoplasm of breast: Sister(V16.3, Z80.3) Status:Active : Brother Status:Active Alcohol abuse: Brother(305.0 0, F10.10) Status:Active Family history of drug abuse : Brother(V61.42, Z81.3) Status:Active Advance Directives No Advanced Directives Records FoundNo Advanced Directives Records FoundNo Advanced Directives Records FoundNo Advanced Directives Records FoundNo Advanced Directives Records Found Chief Complaint * STEVE DE LEON is being seen for POC Dr. Sotelo Scrotal xploratory, remove lipomas. * 81-year-old white male who was sent to me by Dr. Sotelo for cardiac clearance prior to removal of lipoma from the scrotum. Presurgical testing revealed left axis deviation on EKG. The patient has no previous cardiac history but he tells me that he had at least 4 stress test in the last several years the last of which was in [place] 2 and half years ago which was normal as well. It was done for symptoms of atypical chest pain. Patient has no risk factor for CAD except for his gender his age. He is nondiabetic, nonhypertensive with no hyperlipidemia and no smoking history. He has no family history of CAD. The patient has active lifestyle and has no symptoms of dyspnea or chest pain. 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 His EKG revealed sinusrhythm with left axis deviation. Otherwise physical examination was only remarkable for overweight. * Assessment/recommendations: * 1 patient need cardiac clearance prior to scrotal lipoma surgery. By definition this is a low risk surgery. The patient has no major risk factor for CAD and is asymptomatic from a cardiovascular standpoint. There will be no further cardiac investigations needed. I will retrieve the stress test from [place]. Patient is considered low risk for the upcoming surgery and therefore I have no concern about his EKG. * 2 slight overweight, encouragement provided to lose weight. * 3 mildly abnormal EKG with left axis deviation of no clinical consequences. * The patient asked me if he can see me on an annual basis and I have no problem with that. Additional Source Comments Patient Care team informatio n (unrecognized section and content) Personnel Name: Antoni Cho DO Address: Address: [address] [place] [address] Personnel Name: Antoni Cho DO Address: Address: [address] [place] [address] Personnel Name: Antoni Cho DO Address: Address: [address] [place] [address] Personnel Name: Antoni Cho DO Address: Address: [address] [place] [address] Personnel Name: Antoni Cho DO Address: Address: [address] [place] [address] (unrecognized sect ion and content) No Status Records FoundNo Status Records FoundNo Status Records FoundNo Status Records FoundNo Status Records Found INFORMATION SOURCE (unrecogn ized section and content) DATE CREATED AUTHOR 10/18/2022 [facility] DATE CREATED AUTHOR AUTHOR'S ORGANIZ ATION 11/22/2022 [employer] DATE CREATED AUTHOR AUTHOR'S ORGANIZ ATION 12/16/2022 [facility] DATE CREATED AUTHOR AUTHOR'S ORGANIZ ATION 03/05/2023 [facility] DATE CREATED AUTHOR AUTHOR'S ORGANIZ ATION 10/02/2023 [facility] EPIC REASON FOR VISIT (unrecogniz ed section and content) RIGHT HAND FB OF SPLINTER ON TOP OF HANDPatient is here for diarrhea. The patient states he has had diarrhea for about 4 months. He is unsure what caused this. He has used Pepto and Imodium AD with no improvement. He states this has improved somewhat on its own now.Patient is here for a 1 month follow up, started levsinCHEST CONGESTION AND COUGH FOR RECORDS PERTAINING TO PATIENTS WHO ARE OR HAVE BEEN ENROLLED IN A CHEMICAL DEPENDENCY/SUBSTANCEABUSE PROGRAM, SOME INFORMATION MAY BE OMITTED. This clinical summary was aggregated from multiple sources. Caution should be exercised in using it in the provision of clinical care. This summary normalizes information from multiple sources, and as a consequence, information in this document may materially change the coding, format and clinical context of patient data. In addition, data may be omitted in some cases. CLINICAL DECISIONS SHOULD BE BASED ON THE PRIMARY CLINICAL RECORDS. [facility]. provides no warranty or guarantee of the accuracy or completeness of information in this document.
[2023-10-03 06:57] LABS: Erythrocyte Sedimentation Rate 7 mm/hr (<=20)
[2023-10-03 07:28] LABS: C Reactive Protein <0.50 mg/dL (<=0.50)
== END 2023-10-03 06:14 | disposition home or self-care (01) ==
LOC: LAB 06:15
PROVIDERS: PCP Internal Medicine; Visit Provider Internal Medicine
DX: G44.52 New daily persistent headache (NDPH) (principal)
CPT/HCPCS: 36415; 85652; 86140

== ENCOUNTER 2023-10-08 10:16 | Outpatient (OUT) | payer MEDICARE, OTHER, SELFPAY ==
--- OUTSIDE RECORDS SUMMARY | 2023-10-08 10:19 | XMS_ITS | CCD ---
Author Name Unknown Address [address] [place] [address] Organization [facility] Care Team Providers Care Straight Edger Name Role Phone Antoni Cho Primary Care Physician [phone] GO, DR CHRISSIE Bradley Admitting Unavailable GO, DR CHRISSIE Bradley Attending Unavailable HOUSE, DR CARRILLO Primary Care Unavailable [place], DR CHRISSIE Bradley Consulting Unavailable [facility] [place] Consulting Unavailable MCWILLIAMS, DR ANTONI Acevesitting Unavailable MCWILLIAMS, DR CARRILLO Attending Unavailable MCWILLIAMS, DR CARRILLO Primary Care Unavailable [place], DR AQUILES Lee Consulting Unavailable MCWILLIAMS, DR CARRILLO Consulting Unavailable MCWILLIAMS, DR ANTONI Acevesitting Unavailable MCWILLIAMS, DR CARRILLO Attending Unavailable MCWILLIAMS, DR CARRILLO Primary Care Unavailable MCWILLIAMS, DR CARRILLO Consulting Unavailable NARDINI, KINA Consulting Unavailable [place], Antoni Bradley Unavailable Unavailable Unavailable Deejay, Dr. [...] Medication Allergies] Propensity to adverse reactions (disorder) [facility] Repository Medications Current Medications Medication Drug Class(es) Dates Sig (Normalized) Sig (Original) acetaminophen 325 mg / HYDROcodone bitartrate 5 mg oral tablet (1 source) Opioid Agonist Start: 3 End: 3 acetaminophen-hydroco done 325 mg-5 mg oral tablet 1 tab(s), Oral, q4hr Pain for 2 day(s), 7 tab(s), Refill(s) 0, [facility], 170, cm, 11/16/22 11:51:00 EST, Height/Length Dosing, 85, kg, 11/16/22 11:51:00 EST, Weight Dosing Start Date: 11/29/22 Stop Date: 12/01/22 Status: Ordered [id number] 60 actuat albuterol 0.09 mg/actuat metered dose [...] day(s), # 10 cap(s), Refills(s) 0, Pharmacy: [id number], 170, cm, 11/16/22 11:51:00 EST, Height/Length Dosing, [...] procedure., # 2 tab(s), Refills(s) 0, Pharmacy: [address], 170, cm, 01/02/22 9:19:00 EDT, Height/Length [...] (COVID-19) RNA RANDALL+probe Ql (Unsp spec) Negative [employer] Other COVID + FLU Quick Testing Positive [employer] Other COVID + FLU Quick Testing Negative [employer] Other Ambulatory Visit Summaryon 0 03-04-2023 Ambulatory Visit Summary STEVE DE LEON :1940 Visit Date:03/04/2023 Ambulatory Visit Instructions Your Diagnosis Lipoma Spermatic cord cyst Asymptomatic microscopic hematuria BPH with obstruction/lower urinary tract symptoms Renal cyst Tests Performed Urnls Dip Stick Auto w/o Microscopy POC 88102 Your Care Team Attending Physician - Chrissie [...] Chrissie SOTELO MD Where: [facility] Patient Educationon 03-04-20 Patient Education Urology [...] these instructions at home: Medicines ? Take zqvg-urk-qiitdxf and prescription medicines only as told by [...] the blood stops without treatment. ? Take ejqx-lku-hlglukv and prescription medicines only as told by your health care provider. ? Drink enough fluid to keep your urine pale yellow. This information is not intended to replace advice given to you by your health care provider. Make sure you discuss any questions you have with your health care provider. Document Revised: 04/26/2021 Document Reviewed: 04/26/2021 [employer] Patient Education ? 2022 [employer] [facility] Urology Office/Clinic Noteon 03-04-2023 Urology Office/Clinic [...] [address] [place] [id number]- Additional Instructions: Patient Education Hematuria, Adult I, [...] Daily, 11/16/2022 (more content not included)... Normal [facility] Comment on above: Result Comment: Elec tronically Signed By: Chrissie SOTELO MD\.br\Date and Time Signed: 03/04/23 09:33 EDT\.br\Electronically Co-Signed By: Sofiya Gaytan\.br\Date and Time Co-Signed: 03/04/23 09:32 EDT [place]enson 12-24-2022 Screens [id number]#1.0 0CD:127 Normal [facility] Patient Educationon 12-22-19 Patient Education Urology [...] these instructions at home: Medicines ? Take xjrz-bhe-vhlwmqp and prescription medicines only as told by [...] the blood stops without treatment. ? Take fvqm-udy-shdzfss and prescription medicines only as told by your health care provider. ? Drink enough fluid to keep your urine clear or pale yellow. This information is not intended to replace advice given to you by your health care provider. Make sure you discuss any questions you have with your health care provider. Document Released: 08/26/2006 Document Revised: 01/20/2020 Document Reviewed: 09/28/2017 [employer] Patient Education ? 2019 [employer] [facility] Urology Office/Clinic Noteon 12-21-2022 Urology Office/Clinic [...] 02/20/[address] [address]- Additional Instructions: Patient Education Hematuria, Adult I, [...] omeprazole Allergie (more content not included)... Normal [facility] Comment on above: Result Comment: Elec tronically Signed By: Chrissie SOTELO MD\.br\Date and Time Signed: 12/21/22 09:32 EDT\.br\Electronically Co-Signed By: Sue Black MA\.br\Date and Time Co-Signed: 12/21/22 09:22 EDT Postoperative Documentson Postoperative Documents [id number]#1.0 0CD:127 Normal [facility] Coding Summary.on 2022 Coding Summary. CD:[id number] Ww +PGhlYWQ+IB7BKAMwA91se WAcwR2rK2USTVbQXrvqPBH MOKqBBhOvpuJgGY2apWKeY XJu IC8+XP3nOPGjDxfzeFPxq9 D0nYM0A06rfp2lTHymmTV0 YDAgMgPyjvacd3unoIl6NH cuNmluOyBt NPFbhJ56ALJ7lD05Fo85zY SanGDbq7atbLl7ZpIrHAYd AAC8dNepCBbvx8PrWXNeJ7 5htKZqe5I2 FOIarAgzoSStZsWlcBH1xX 8eQKebdchim9dgujhtYyo8 mr91iJJpf0X9dSM0I1Bfox O6XZKlgOMd FaohzMQQkQ2qrdlja0pkbq laJoWtRQNfMVg9CBr3NFKc pJasNcYkWU87LCJ1XBTkjq XyF6GnLVJz nMefYvL0w3S0Xn0TD4GUKx rfB2LQLSERHEbhzVG+PC90 yr97Z1SsLftwMbx6XWTdTG P4nOX4bL3z FMHbYMmam9J1vOH1B5Ptrr Tfyf2km0gqDDZoUDknK97u uUOyt2Z9GBJvfJA9QCLxoW wuMtCktL96 Oyc+GNOyvTubu0OiEzlyw1 bsf5yskBw3SvtpZMBxtyNu qNtsXMO8r1MeVq8nVXKiuE I5hCY4uL8q XeVvCoZ9YJarE066TvVtiY ZiUopzW69jJ9SrjIN+PHRy Evf1MNVjmUgqBW3lN1CtZS RpbmctbGVm sHidNU2vNNPzdmjvUNSftX 6rYBObF8o1YqXcTiR4KXms C8KcKEYfhnojKm38lH2lAd ZmFrU4BSnb P3OiwmY3IIGzjSQrBRohOV L2V00en0G3AURzPRNnIJP3 wWW4fX4rfEokfyeviNZimQ sgdmVydGlj EXzjEIxfW365HVNtkAccAq NvZGluZyBEYXRlOiAgMDMv MjkvMjAyMzwvdGQ+PHRkIH T3lWpwBKJp bUZcZLyfIb7exEqvtNncPI 3zMJZohhswMJTziM7vIBDg dRUdrUpjVM0tUNKxkyhix8 53TxFdQJH4 XUCfzEZlE9VokF0fPvPmKP VtYTBbN1YirJTlECikP626 PEguSmQ0PMPmncNqT6HgVL FsaWduOiB0 g0I7Na2Bl8GaoslwH7HqsL DkIfNkHpzmHCv5X2RpZnuw dHI+FU30ZFIkZM60AOq2AS S5dHeyTMeb KSGaW1VteC2iOtKpCPIkBG RkOyc+PHRhYmxlIHdpZHRo PAhtCRLbQvIvuQpbRJ6eCk 9yZGVyLWNv bKtuqUPrNuYyz6rqLRZnPZ ixJX9fnZggU4WwiBO2CAXe z7u1Ht56O79pU0PgzAZ+PG CcmJW1mYV8 cT0zDdDdGaO5GFbkF645Iw GxoIZlUdtkr6xcv9wvoRr5 BxB6VPXhrzEjoCrlSIS9c2 CoBh49F46m IHdpZHRoPSIxNSUiIHZhbG fbts0hrJ8pGe7+PGNvbCB3 eWL6lJ7kOzWfNiO8BTpkO3 49InRvcCIv Sdhrs4vci3balMq3XpPoKM AclnLfoVguHKR1j5LmWt36 S4EkxSobq2FmNfx9oe26nW Rrn4Z9xKY8 J3PpZIXuemnovQWsuMubUO 9kNSBopphyXWUhoR3bYPGh R5i8JgPcMwN6CQtsB1Vpvh O3QTBxoKUy XXProVUOvK4kafzax2dbdu wdCtOvWLHkREu2LZz8UMTf fAjqSoDeBVC8RaT2ZRS5wL GcsA8fmZxz tgrskA5aIcw+ZKI5gGIkcQ RPQN8hVtwxwPJ+PHRkIHN0 nCfrJIipDPEaoM4zXMLwQ4 y6SrDuJyV5 TSraC7GtcdZ6HTLssHCbAW DnvEWPaM8ubmdcm0nocmif RdOgQKFkZIv5JDm7JERtjF duOiBsZWZ0 PnF9JFZ6cHWnuN1beGncdw sjzN0wLhe+QmlydGggRGF0 OEz2U6StCgg6FFOzqVdzPZ 0ncGFkZGlu Fs4jiLiymTdlYJ9yUTZbuu yki284RkYyi5hfODUulLYs ZWdpESF9E89xz4V4AYHgTR LlZPC8aWE3 yT2pcRsdaijwjBUhoYjats ZorHsuZKwiWJtfF771GZZr bVzwLaKxKNv9U2TlUqy1GH XzhMfgYN5i sXElIDrsZp2owKzvkJcvTV 2kSFDmadegb526AxGan9dq TRDlmHQmPJswMBN5E28ul2 T6FPTcRVXg OTZ6hEU1tN1jgGzxpakfjV VmdDsgdmVydGljYWwtYWxp J614BUAyuNsmQcErqHr9J9 QeMxe4SNEy cYshDU1pnWLxZQjvZj3hkG ocbSvdJN3bDOBkaifoo458 ZmZlv9xjCBEfvTVpUKhvVT S4C23wi4Y1 CJEeQXItEYJ2bTB0wE2aoU lnbjogbGVmdDsgdmVydGlj SCmyZArtY205MGPbgFzvGa BhdGllbnQg SOzjQQd7E8OdJknqhVF+PC 90MLZpHR78jOXnwOPmc7cu cNi8XlRhIJTeATK4dIycVC oei6RiLMTu B83rzRLts4M0YFJyaKuvhC CkCrJpkJL1xV0kCXdkmzvz t6spihclVtcgt2bfzl53cI 19V69eOMhp ZHRoPSIzMCUiIHZhbGlnbj 5gjP0yFf4+CDPouWF4hTI1 uW1pDLWoDxX8VNxpE655Qh RvcCIvPjxj c1dht8uzwMl0IyV4WPYtzb YafAeyVNT3v1SuHe41P51f IHdpZHRoPSIyMCUiIHZhbG ixlq4sxF9x Ii8+TJUoyVU8aAA7pH0zFm OdKsG9ZUywJ654DjBkjCYn DtzcZ96wP3PhxAS+PHRyPj t5EVGrmAss GC7psYWtARmzCn4eXQQ0Sy DtWqKkIJiiJ3CiRZYwhpjg salexND2UONaRVPeiC00Wg 9udDogMTBw qCFYbC9vljcmt0chycdwPn VySZFeQKn2XHj4WLPzwWtg VrIwQYK0OiD6YAI4fTLsdG 1hbGlnbjog dQ1zE3PhCBUqgsehGb46zB 0kBrFnXyI2MVlvSmz+RFVE CMPcDYRQDCFQZF1fGoypvD Q+PHRkIHN0 jRqbWBukOCNesF6mDMAnE7 g0TpJsSkQ5VFxmW3LzLREz orvqQn54cI9zIsKaQoG4LC moY0GiqxY6 MXEpzDAtQUapEDZ4F80vz4 C6WPYwRQGkHWI6gDM9lR8i bGlnbjogbGVmdDsgdmVydG ljYWwtYWxp N773LMJiqJhsMjNaPyM1Tb H2GVN6F5OpMsl8QDGrfQhv FO2hzZWlBJqkVo6htCzkuL irFW0bCZAf ogonPZChoG5tRYPdhEMnbW vvQP2lOVSnpeigg289RbBs VQO4UBTlyFXhE3NboS6bZb AjMDAwMDAw X4GrzARjMVsqQ406EXmrSl X6UTWdbwWpD9IlJPKffPwq McA8p0B4Zk49AuGFAEJjna wvdGQ+PHRk VXF5wKwgUZnoWFWcwX7sKG ElP8l4ZaZnBtL1NPwiG3Tu SCZzlabhTb70qW9mMnNcPf L5TVbrG2Lx tzG3CBUezZSiPVumJBF7A8 9mz3Q2PHQaVJXcDWC5uUS9 bT4hrQsojaexxPKekXizug VydGljYWwt BCpyU476GLStxRwmJb0lgH Z8Y0LcWwi5KRNfcSbnCO3r iRRhVZpvZf2epRkyuEckHO 4wNTBpbjtw YCVysT4eWRNbeKSnnHztZB 8xVUQpzzrec185KwOqSSS9 MTJulYOzR4BlxF5fTtCgAF AaMPWwC5Al fAPmNZbiO356ADqiTqK6GS OnkfHgS3OeSTZntEauSgL1 e1W5Uf6UzFG0vBE1x0L5A0 NhbWUgRGF5 OWR4czsqkvg8N2JjZrtsoM I+RF19CUYbHV38rKLoqNGh c1drgGk0OlMuGFEeFJM2nN cgBBklk0Qv DLCpL24akDMkl1X3KGExsI cmgMTwFlQyjYY4yP7bAHeb nqpet3ywezprNmspr6vnmg 99xO34Y22e IHdpZHRoPSIzMCUiIHZhbG zggp3bjJ2dYt9+PGNvbCB3 lPS9fF8jXfBfYkU0DXtjN9 49InRvcCIv Kzxkq8dpd2yjiVz5PcNzAO AobzAptIqhCWR6e0IcSm09 O41wHCmdFPZyKJVvMEYsDU RkpCwhts9r rC5mPj3+RC6qr3mndw29tC 48dHI+RILwZYO3bUblBXmf NBRsbK5oHDtuUbA9PLRgDx XngP97pKJr TWntNe4lbMolhGvrHA5zDK Xnxdxzg193NsSgg4khNWUa qUUgJPcwXQC6P18do1A1BI MwMDAwMDA7 kQS6jW3itFkxzknnrNCdzI bcmkMudDbaOGfnXWbrY584 LTQehYeeYgHnyYZtH9alvt OPOH3tZump dGQ+ESMuNOX2zGulBOghIJ AchA0cBEHqF9x5NcItFsV2 JDnqX6ThnvQ0IOGwqUHhXS VpfTMYwM5e hoopm5dzequbQgByEBUpTY h3EQs2XMPugNjqQrVnVIC2 IhB5LLF8cMUddF7nnVpkfv ldiZ1sJue+ RklOOjwvdGQ+PAOhSNE1fL tqQCozLJBjeD8xLUDeJ4w8 MzHpCvJ1DFooV1UcaeP3UC JvbGQgMTBw sOZBaU4udvpeb1rxkjnkXj OhKQDlUKe4OPj7NUGssJef JeCvYLN3OyO8HPL9tTBupP 1hbGlnbjog cR4cMzr+TVJOOjwvdGQ+PH GxXGM6bTliUZghZDMzlR4a JORiO0w0BcItWuZ0DRqdM3 MdbmI2CQZh tRYuSVRcbNNAhQ0hcgnyg0 fbdtfkSdJsWTTcNEz3NZl5 NDNjwQmtRaZuVZL3CxI6WV M9aLBpjO5m fAmsgyfgzH7yDut+UGF5ZX C5QT98ZV97O7LxYmreoPLd bGU+PHRhYmxlIHdpZHRoPS cxMDAlJyBz fSldZO6h (more content not included)... Normal [facility] Consultation Noteon 12-04-19 Consultation Note [id number]#1.0 0CD:127 [facility] Consultation Note [id number]#1.0 0CD:127 [facility] IntraOperative Documentson 0 12-03-2022 IntraOperative Documents [id number]#1. 00CD:127 [facility] Consent for Anesthesiaon Consent for Anesthesia [id number]#1. 00CD:127 [facility] Consent for Procedure/Surger yon 11-30-2022 Consent for Procedure/Surgery [id number]#1. 00CD:127 [facility] Discharge Instructionson Discharge Instructions [id number]#1. 00CD:127 [facility] IntraOperative Documentson 0 11-30-2022 IntraOperative Documents [id number]#1. 00CD:127 Normal [facility] IntraOperative Documents [id number]#1. 00CD:127 Normal [facility] Main OR Intraoperative Recor don 11-30-2022 Main OR Intraoperative Record IntraOp Document Type FT Summary Primary Physician: Chrissie SOTELO MD Finalized Date/Time: 11/30/22 12:33:04 Pt. Name: STEVE DE LEON Mike Turner/Sex: 1940 Male Med Rec #: [id number] Physician: Chrissie SOTELO MD Financial #: [id number] Pt. Type: A Room/Bed: Admit/Disch: 11/29/22 08:02:54 [...] Av SOTELO MD, Cornelius Maldonado Role Performed SAFETY RELIEF VALVE TECHNICIAN Surgeon - Primary PLATE HANGER/SA Time In 11/29/22 09:49:00 11/29/22 09:49:00 11/29/22 09:49:00 Time Out 11/29/22 10:45:00 11/29/22 10:45:00 11/29/22 10:45:00 Procedure SCROTAL CYST SCROTAL CYST SCROTAL CYST EXCISION(Bilateral) EXCISION(Bilateral) EXCISION(Bilateral) Comments DR AVENDANO SUPERVISING Last Modified By: Michel HER, Aruna Pearson RN, Aruna Murphy RN 11/29/22 10:45:05 11/29/22 10:45:05 11/29/22 10:45:05 Entry 4 Entry 5 Case Attendee Jewels MAYEN, Aruna Valenzuela RN Role Performed Scrub - Primary End Frazer - Primary Time In 11/29/22 09:49:00 11/29/22 [...] and tissue Entry 1 Skin Integrity Intact, [place], Warm, and Skin Abnormality No Dry Outcomes [...] of inju (more content not included)... Normal [facility] Preoperative Documentson Preoperative Documents [id number]#1. 00CD:127 [facility] Preoperative Documents [id number]#1. 00CD:127 [facility] Consent for Treatmenton 11-08 Consent for Treatment [id number]#1.0 0CD:127 [facility] H&P Updateon 11-29-2022 H&P Update [id number]#1. 00CD:127 [facility] Inpatient Patient Summaryon 11-29-2022 Inpatient Patient Summary [place] [id number] [facility] Clinical Discharge Instructions PERSON INFORMATION Name: STEVE DE LEON PHYSICIANS Admitting Physician: Chrissie SOTELO MD Attending Physician: Chrissie SOTELO MD PCP: Antoni Cho DO Discharge Diagnosis: Comment: PATIENT EDUCATION INFORMATION Instructions: Post Op Patient Instructions - FT (Custom) (Custom) Medication Leaflets: Follow up: With: Address: When: CHACHA MULLINS [address] [place], [place] [address] [facility] (1) Comments: Call for followup appointment with Mindi Mullins PA-C or me within the next 2-3 weeks. Should you have problems prior to that visit, please let us know. No shower for two days. Keep scrotal support and ice intermittently for discomfort. Have a great day! Type Location Start Finish State [facility] Office Visit [facility] Tay 01/21/2023 10:30 AM 01/21/2023 10:45 AM Confirmed MEDICATION LIST New Medications [id number], [address], [place] [id number], [phone] acetaminophen-hydrocod one (acetaminophen-hydroco done 325 mg-5 mg oral tablet) 1 Tablets By Mouth every 4 hours as needed Pain for 2 Days. Refills: 0. cephalexin (cephalexin 500 mg Cap) 1 Capsules By Mouth every 12 hours for 5 Days. Refills: 0. Medications to Continue with No Changes Other Medications multivitamin (Multi Vitamin+) omeprazole Comment: Normal [facility] Main OR PACU I Recordon 11-08 Main OR PACU I Record PACU Phase I Docum ent Type FT Summary Primary Physician: Chrissie SOTELO MD Finalized Date/Time: 11/29/22 11:34:56 Pt. Name: QUIN DE LEONISAAC Mckeon /Sex: 1940 Male Med Rec #: [id number] Physician: Chrissie SOTELO MD Financial #: [id number] Pt. Type: A Room/Bed: [place] [address] Admit/Disch: 11/29/22 08:02:54 - Institution: Case Times [...] 11/29/22 11:34 Sharon Mosquera RN 11/29/22 11:34 [facility] Main OR Preoperative Recordo n 11-29-2022 Main OR Preoperative Record PreOp Document Type FT Summary Primary Physician: Chrissie SOTELO MD Finalized Date/Time: 11/29/22 10:13:26 Pt. Name: STEVE DE LEON /Sex: 1940 Male Med Rec #: [id number] Physician: Chrissie SOTELO MD Financial #: [id number] Pt. Type: A Room/Bed: Admit/Disch: 11/29/22 08:02:54 [...] By: Aruna Pearson RN 11/29/22 10:13 [facility] Monitor Recordon 11-29-2022 Monitor Record [id number]#1.0 0CD:127 Normal [facility] Monitor Record [id number]#1.0 0CD:127 [facility] Operative Reporton Operative Report Patient: STEVE DE LEON Age: 81 years Sex: Male : 1940 Associated Diagnoses: None Author: Chrissie SOTELO MD Postoperative Information Date/ Time: 11/29/2022 10:44:00 Postoperative Diagnosis: Scrotal masses ([id number] N50.89, Working, Medical). Performed by: Go POTTS, [...] it well and is transferred to the rmellette and then back to PACU in satisfactory condition, stable vital signs. Plan to be for discharge home with plans to follow-up in 2 to 3 weeks in the office. Prescription sent to the pharmacy for [place] and cephalexin. Described all this to the patient's son postoperatively and he is in agreement with the plan. Complications: None. Anesthesia type: General. [facility] Comment on above: Result Comment: Elec tronically Signed By: Chrissie SOTELO MD\.br\Date and Time Signed: 11/29/22 10:50 EDT Outpatient Surgery Discharge Instructionon 11-29-2022 Outpatient Surgery Discharge Instruction [place] [id number] Patient Discharge Instructions PERSON INFORMATION Name: STEVE [...] up: With: Address: When: CHACHA MULLINS [address] [facility]. [place], [place] [id number] [facility] (1) Comments: Call for followup appointment with Mindi Mullins PA-C or me within the next 2-3 weeks. Should you have problems prior to that visit, please let us know. No shower for two days. Keep scrotal support and ice intermittently for discomfort. Have a great day! Type Location Start [place]ish State [facility] Office Visit [facility] Tay 01/21/2023 10:30 AM 01/21/2023 10:45 [...] to serve you. Thank you for choosing [facility] [place] [facility] HERE ARE THE MEDICATION CHANGES THAT OCCURRED DURING YOUR HOSPITAL STAY New Medications [facility], [address] [place] [phone], [phone] acetaminophen-hydrocod one (acetaminophen-hydroco done 325 mg-5 mg oral tablet) 1 Tablets By Mouth every 4 hours as needed Pain for 2 Days. Refills: 0. cephalexin (cephalexin 500 mg Cap) 1 Capsules By Mouth every 12 hours for 5 Days. Refills: 0. Medications to Continue with No Changes Other Medications multivitamin (Multi Vitamin+) omeprazole PATIENT EDUCATION INFORMATION Instructions: Medication Leaflets: Normal [facility] Patient Education - Texton 0 11-29-2022 Patient Education - Text Normal [facility] Progress Note-Physicianon Progress Note-Physician Patient: STEVE DE LEON Age: 81 years Sex: Male : 1940 Associated Diagnoses: None Author: Lauryn POTTS, Meek López Postoperative Information Postoperative disposition: Postoperative disposition: To PACU. Optimetrix number: Optimetrix number [id number]. Anesthetic utilized: General. Physical Examination Vital Signs [...] Surgery Unit, and To home ). 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 Gastrointestinal: Soft, Non-tender. Plan [place] [employer] (ASA) physical status classification: Class II. Anesthetic Preoperative Plan: Anesthesia General. Normal [facility] Comment on above: Result Comment: Elec tronically Signed By: Lauryn POTTS, Meek Ayers.br\Date and Time Signed: 11/29/22 08:44 EDT Coding Summary.on 11-27-2022 Coding Summary. CD:[id number]:4199541H Gh 0bWw+PGhlYWQ+MR7DIRRjE 07pcPXuuL1vT8MQOQfECcf dOUXRCVkYQmXotpJuUS5wc XNjZXJu IC8+OL2xRLYhKtntgNXfe6 N5qYC0R64lsb7wUJjwxCA7 NTHwLsSzkyhwq3tmdAy4YZ cuNmluOyBt HVCuyA54ITO2fR05Ok50gZ FtnRZbb1fzxXw1BfSqORPw PMY3yOxnXXyqo8CsOTLgP3 1toUDvl6X9 TWRimGbhbVLsLmQudBN9vA 3yAHcnarvly5bxnoyqTur2 gd77fXGhs3T5nYL7X1Rqyb N6PYChxBCv SlsscYYIgI7noqkyb2onms veMdNqDSQbPIx4WYt3OTBp xMmkGdTdOP88LWE6RDPdve EhJ6NmOSUm dSqjZdV5s2H3Ut9HL9JQOg zsH8ZYQXKFRQcabWR+PC90 or01M0VwYgvxRjz3JTVaVS W9mXZ3jG7r VFKgMFghg4U1eCO2D4Bmrc Igvu7ag9zjBCFeZKzoP68j qWKzm5I3QEJxnGE6PRJaoA xvBtGedE10 Oyc+ITNmfKcyn7ZmGwofj8 jjw6zbqQv8AbxvWOPcvdYh wVchNZJ3y6NeUc3gYSWppG H2dGJ2nA5u VuXrUgG0FJmuC034ZwNncF LpXqmkH89zC5FrbAI+PHRy Khp3RHYayBckSA6zP9LwZO RpbmctbGVm gMnkKQ3jCHHxniqlYVKxlZ 4mRIEoX8z5KxNxCvQ0JKfl Q8HgMRBkyfknIu37uG9fMg CrSdD2NYmx M8YhrwR3JZHweKItQCuwPU Y4E26ew8Y3FSAmOMMyOHE9 wSP7cL3mvQljoawrhGRavF sgdmVydGlj BEtaSBiwV513ZDDloTvsZu NvZGluZyBEYXRlOiAgMDMv MjEvMjAyMzwvdGQ+PHRkIH E0hQzjSAWi dFDmJYhgOn8coSsfhIhjYE 4xPVFsaarrJJMakN8zHXZf iNWsbCycTQ8uXZJstqfir6 19FhBgKCH2 TKYwuAXdJ0BmwQ2rZdPfOA HfTJOhY5HsnBDpLGooC471 JImmLcR4VMZkeeXtF9QsQG FsaWduOiB0 i9F5Yk3Et7NypqjwV9FcjM TzDtPvHqpiWMe9V0JzDpjj dHI+CE30GNSqLK38EGe0GQ Y5pOjfBFkn XSNoG5WgkT7fFwExXPRfSA RkOyc+PHRhYmxlIHdpZHRo IBrkRYVxXrKslAqgTA3uHw 9yZGVyLWNv xTsdkAQtRlYtb2ndWDSkWU bkBS5grBoqC2GpgSB6SYHh o8s1Tl85I21nA6RpqWC+PG IzvZK1vNT5 eQ1rJaVyRiG5FFlhP636Za LquYXwAtmzh4abv8lubSs7 LrU4NPAeuyLfxPkxDGW2o7 CkAj77G92j IHdpZHRoPSIxNSUiIHZhbG curt1uiY7qIy1+PGNvbCB3 lQH9eV5aFpKySpY3ZSieM5 49InRvcCIv Dnypq2ceo1icxYh5CnJuMP NtzzDhdSltSMH8p0OnEn80 Y4BmxHyru6BjCnf1do57jH Ewr0O3kFY2 H1QlHRWmxsylmQQbcQksHZ 8oHIHfqtmjHULptN9qGATa G7t7KmZaHkO0NPbuJ3Ufnh B5YPYowMZf LZIpdJACkK6zednuf5tise qqDnMpMMQbMEq6KUg9AGXp tHltHiVoNBH1LyY2LOG6xD KdxE9rkWvx sxtqkN8aNgb+CQC6kOOlmB QLWE4qNtbgcCL+PHRkIHN0 pUkfBHpiMUMwbY9lAWEtE2 v1JdJaQaY1 PNbnE0EnfyE8GTFvhBKlEU RosZIQvV7oiovlx7axlxrm QxRjOTBfDJq1QUd7HXFnmQ duOiBsZWZ0 JpK0RKE7dUJjwL4swUytoc vhfN6iEqt+QmlydGggRGF0 YOu6Y8XaQfi9KRCcwZnyKF 0ncGFkZGlu Fv0xuLitcNubPC9qJIHgeq vkx574LrVcv5qoDSCfaMAc ZTgsRRK0W78mk6V0XFHaCI YvERM4gHT5 eD2qrGaedevytQCsjXwxhz ByoTglUQzdCEuxL430SAVj cSkgGuKkXJl3Z9GsFvv2WN UoeZppIC2c uVAgUExiYe4fsBbncZyiVJ 7qUAKfynnfq533QuGya0xd SEZbuTVaUGhkCQZ2O26ni4 S1AHRtLAOw AWM1rLR3uS4bwJsecllppI VmdDsgdmVydGljYWwtYWxp Y948NUOueJsdOsTxyZq5D6 HoAuo1KDTg dUjyXA5xzJUkAKlxLv8abY geyYbtCT2zAIDupzxpl654 NyAng7yfUYLykEMnBDtwIP G8Y46pr7X0 TRHxLGWgGCJ2qYL1nE0xoI lnbjogbGVmdDsgdmVydGlj HWayUFljA050PZBoeIglBr BhdGllbnQg TZroYCx1A6JmEjugkPM+PC 25THUgIK56oQTpeXPuc8au sVe9KhMlHFUaULZ7eOjkRS wgk2VuKNWj M95qhFWnn0U3KMAxtCsawU BkOeAwbNP8mJ0hNQzdtljm x9pbuuwuImdkx7pezr37eS 58G28lVFmx ZHRoPSIzMCUiIHZhbGlnbj 9arZ1fRb1+KZNvhQS1wBB0 yM7bIPOuPwK1IXttH622Nh RvcCIvPjxj v0frk8kerFp6StP7WYOumk HjbOeaNUP5c7KfJl39C02a IHdpZHRoPSIyMCUiIHZhbG xwbe4gfK0o Ii8+ZSKahPS0rZA0lC1bBh WlJxS1LYulR908SaQvxLYi AiibO41vB1GoqLP+PHRyPj x8EGDndHad PP2ctNBfWUlgRd7zARM5Ce OeBjYsYFcvD9ZcQXDygzho bitoqGF1JVCbRCYbwJ48Iz 9udDogMTBw tJKBpC2aefitm7kwakbiZc UoNRDjJAi1OGz1DQHmxMjz WbPuLNT0UpM1KMY5iFTtkD 1hbGlnbjog nQ1lP2YzGOEnvucnWt82xU 5qShSfOlE5ZVjwYqj+RFVE APPkSGYEJUTKIA5yYpusyI Q+PHRkIHN0 dAmdQXpcIRVrqL4sOJElI3 z6OlRxAnF1OZvsB2MvKJOq qvarFg51vM9yVbQvNeB3DT vdQ3UdamU1 OIAjoKFnSBjoZLV2X55dv2 R9GXIhKBIqQYI7sKT5jP4b bGlnbjogbGVmdDsgdmVydG ljYWwtYWxp C510WUBsnLnuKbSlWnM9Xu O1WFW9C5YdUku0ZKTztUpq FC4uxAKaWMvnGw0xyRrguC ynYD9xEAUw cgziHZNbhJ8vWJTwkCZdpH zkYJ0wPFZileizy711MxNt UBN8AWQmiMIiQ6SgwR0uAf AjMDAwMDAw K7KwvZJxVStgI699JFqbXx J9WVFnwvBkH6YlJKXfcXea OfB1q8C7Kl20SBGGVLTjcn wvdGQ+PHRk FHU9zSsyUElaCWIqaG9aED VkO3k7LlJsHbZ0JXfwZ4Rq GLLqnvmxFe91uY1yAcCfHu S8RUpyQ7Jx bnD7JVQpaTBjAQazCFG5B7 5ju0R2YRQpCUVqCBI3mLL0 aK7dfAudnggasJZuyTwzgf VydGljYWwt KAohY933BDCbuCbdLl4xoT C4D4MzKjt3RJAoaOhiCR2f zMJkSPyzSg2hpAfkfFruBU 4wNTBpbjtw TTHefC1cTOFkyJAuiGslJG 3cWPIrijfll186UtOuINO8 QGMfiCLtS6TvhC9zLjQyAG QgNIGcF0Fk bWTnNTmoI949VTjoGdD4SQ FputJxV9YjQJMepGclOgO4 d4O8Ce9MzLVcEFJlLC36PP 83OS23A0Fb PjwvdGFibGU+PHRhYmxlIH dpZHRoPScxMDAlJyBzdHls QJ8aHm9cJLFdQHYdqVvgpX UuYyBdl2my DTRpVCepKY1rkQaaY0JrtL Q1GBJkk8x0Il36C75kZ5Qk dXA+CEBraEN1kPX2sL3pEe HmXhH3JIpl O170BvBozLXjKmtip8ner5 umqJm7JdVlWXGpnlRehVvq PRS0z1JcXa39N75eGQzdEW RoPSIyMCUi NLSmqAleam2lbS4gTu3+PG SttYN7tOE7rQ6cNjTfPcZ5 IZlvK110YxIftXXnRdnxG1 2xA4IbwGA+ GQAaKsy0EARqlUagUQ8ixZ EiVHpwCp0mDXE6IxQyVjPb GFdsN0EpSFMoayozaeaylK K2DSMgBDMp aF32Zk2tgDaoDv1cEZBwZT G2OTJrwYBgR5FocI4cJkQk VOBvNCAlG0ZfyFKyIFlaD6 16OUgoOvV8 BRPntwWsC3SjVWEvfFbxIe K5c6B4Ry3AcPcsfEGqYU1i VdAdQUq7N2UtNei6DMXxxM ooSJ7gdWMs TGerHm9fhDehySsxHL5kTD Nocqhoz157IoOmb5oeUWYr iRHuNWnrELY5X11rp3T9ML MwMDAwMDA7 aEH3vT1xnLkqfwlipYSvwY pgxrZhaSpoQUhoLNjsI072 SKTcfKbqEdQTGns2B4KxUl b7ZJBgpXgw LB9rwPYbTAgwFd8edOataJ hoPE4eEFZsmcybe718CzYl y7fnVLRppGSgLFazFJQ6G0 4ro7K5ITIk ZMPjWAC7uCM5sG7blFxnou ogbGVmdDsgdmVydGljYWwt FBxdW663HDEkrAhrCw7BFr i1D7DmQcq8 KXCrqYamVU4keZYlVXszNx 7psOksyNuqEV8kXDAbarmv t669WzJfz4vjOQYfmGOzXO fzEUD8Y68r m2F6ZAAaPXUcFIY5mYU4aP 1hbGlnbjogbGVmdDsgdmVy nMxsVXbeMAcwI296NJTikN snPlBheWVy OjwvdGQ+QN77au48G9AjXs udYnj1YUFlRBI0iBN9jB3k VCVgVAyob5O0lPG3S2Szob Qbli9je0hy YXBz (more content not included)... Normal [facility] Outside Recordson 11-27-2022 Outside Records [id number]#1. 00CD:127 Normal [facility] Office Visit (Cardiology)on 11-21-2022 Follow-up visit [...] up in 1 year. Retrieve stress from [place] The provider reviewed the following test(s) and result(s) with the patient: ECG Risk Assessment Studies: Surgical Clearance:1 STEVE DE LEON is cleared to proceed with surgery1 . 1 Amended By: Mely De Oliveira; Nov 21 2022 11:05 AM ESTChief Complaint STVEE DE LEON is being seen for POC [...] years the last of which was in [place] 2 and half years ago which was [...] I will retrieve the stress test from [place]. Patient is considered low risk for the [...] Vital Signs Recorded: 21Nov2022 10:36AMRecorded: 21Nov2022 10:34AM Cngogwts261, LUE, Yuspser680, RUE, Sitting Sobusiljz83, LUE, Gxgieoq11, RUE, Sitting Heart Rate67, Apical Height5 ft 7 in Euixzr856 lb BMI Mpbgdxtcyp63.98 kg/m2 BSA Calculated1.96 Tobacco Useb) No PHQ-2 [...] Screening.on 023 Adult depression screening assessment No -[facility] [employer]-Ramer 250 DO Work Phone: Fall risk assessment a) No falls within the last year [facility] 250 DO Work Phone: Tobacco use status CPHS b) No -[facility]-Maggi 250 DO Work Phone: Auto Diffon 11-16-2022 Basophils/100 WBC (Bld) 0.0 % Normal 0.0-2.0 [facility] Comment on above: Order Comment: Order Added by Discern Expert. Performed By: #### 2 604172, 13066184, 9416058, 29991796, 4893173 ####[facility] [address] [place] [address] Basophils/Leukocytes Auto (Bld) [Pure # fraction] 0.0 E9/L Normal 0.0-0.2 [facility] Comment on above: Order Comment: Order Added by Discern Expert. Performed By: #### 2 830277, 73153222, 5398352, 49825982, 2108843 ####[facility] [address] [place] [address] Eosinophils/100 WBC (Bld) 6.6 % Normal 0.0-8.0 [facility] Comment on above: Order Comment: Order Added by Discern Expert. Performed By: #### 2 504426, 60734953, 5441743, 17402026, 3526143 ####[facility] [address] [place] [address] Eosinophils/Leukocyte s Auto (Bld) [Pure # fraction] 0.3 E9/L Normal 0.0-0.5 [facility] Comment on above: Order Comment: Order Added by Discern Expert. Performed By: #### 2 920905, 67314374, 2498024, 56556964, 9260619 ####[facility] [address] [place] [address] Lymphocytes/100 WBC (Bld) 34.7 % Normal 14.0-50.0 [facility] Comment on above: Order Comment: Order Added by Discern Expert. Performed By: #### 2 917729, 42432488, 6668909, 03231087, 7665809 ####[address] [address] Lymphocytes/Leukocyte s Auto (Bld) [Pure # fraction] 1.7 E9/L Normal 1.0-4.0 [facility] Comment on above: Order Comment: Order Added by Discern Expert. Performed By: #### 2 854966, 93604351, 6568269, 71704713, 3125364 ####[facility] [address] [place] [address] Monocytes/100 WBC (Bld) 11.5 % Normal 4.0-14.0 [facility] Comment on above: Order Comment: Order Added by Discern Expert. Performed By: #### 2 833430, 97710618, 3951007, 44660650, 4405982 ####[address] [address] Monocytes/Leukocytes Auto (Bld) [Pure # fraction] 0.6 E9/L Normal 0.2-1.0 [facility] Comment on above: Order Comment: Order Added by Discern Expert. Performed By: #### 2 502954, 94451247, 6599763, 05512388, 6175124 ####[facility] [address] [place] [address] Neutrophils/100 WBC (Bld) 47.2 % Normal 36.0-75.0 [facility] Comment on above: Order Comment: Order Added by Discern Expert. Performed By: #### 2 495650, 12670195, 0830335, 28227722, 8812811 ####[facility] [address] [place] [address] Neutrophils/Leukocyte s Auto (Bld) [Pure # fraction] 2.3 E9/L Normal 2.0-7.5 [facility] Comment on above: Order Comment: Order Added by Discern Expert. Performed By: #### 2 878786, 68481137, 3058383, 01463234, 6572633 ####[facility] [address] [place] [address] BMPon 11-16-2022 Anion gap [Moles/Vol] 9 mmol/L Normal 6-16 [facility] Comment on above: Performed By: #### 2 528921, 77711112, 6987192, 95870225, 9483347 ####[facility] [address] [place] [address] Calcium [Mass/Vol] 9.1 mg/dL Normal 8.9-11.1 [facility] Comment on above: Performed By: #### 2 576567, 75379693, 5453338, 36284278, 3443248 ####[facility] [address] [place] [address] Chloride [Moles/Vol] 105 mmol/L Normal 101-111 [facility] Comment on above: Performed By: #### 2 106508, 94517652, 7378268, 50444448, 8593379 ####[facility] [address] [place] [address] CO2 [Moles/Vol] 29 mmol/L Normal 21-31 [facility] Comment on above: Performed By: #### 2 699239, 48239299, 2593013, 21203771, 4555762 ####[facility] [address] [place] [address] Creatinine [Mass/Vol] 1.1 mg/dL Normal 0.5-1.3 [facility] Comment on above: Performed By: #### 2 253570, 87843723, 0864608, 78683165, 9453792 ####[facility] [address] [place] [address] Glucose [Mass/Vol] 73 mg/dL Normal 55-199 [facility] Comment on above: Result Comment: If t his glucose result represents a fasting glucose, interpretation should refer to the following reference range: 55-99 mg/dL Performed By: #### 2 644476, 81389620, 3924881, 34732924, 1863118 ####[facility] [address] [place] [address] Potassium [Moles/Vol] 4.1 mmol/L Normal 3.5-5.3 [facility] Comment on above: Performed By: #### 2 492464, 34876412, 6880406, 65854187, 6099598 ####[facility] [address] [place] [address] Sodium [Moles/Vol] 139 mmol/L Normal 135-145 [facility] Comment on above: Performed By: #### 2 224404, 52866500, 3212748, 49018579, 3898676 ####[facility] [address] [place] [address] Urea nitrogen [Mass/Vol] 23 mg/dL High 5-21 [facility] Comment on above: Performed By: #### 2 146695, 74143792, 0377563, 71433109, 4592148 ####[facility] [address] [place] [address] Urea nitrogen/Creatinine [Mass ratio] 21 No Units High 10-20 [facility] Comment on above: Performed By: #### 2 241909, 08733416, 7340741, 40260312, 3151587 ####[facility] [address] [place] [address] CBC w/ Auto Diffon 3 Erythrocyte distribution width (RBC) [Ratio] 13.6 % Normal 10.9-14.2 [facility] Comment on above: Performed By: #### 2 720053, 07069704, 9987526, 54571905, 2920383 #### [facility] [address] [place] [address] Hematocrit (Bld) [Volume fraction] 43.3 % Normal 37.7-49.0 [facility] Comment on above: Performed By: #### 2 148861, 10051260, 2382934, 50800319, 4116491 #### [facility] [address] [place] [address] Hemoglobin (Bld) [Mass/Vol] 14.1 g/dL Normal 13.5-17.5 [facility] Comment on above: Performed By: #### 2 063801, 43594851, 7404716, 03751484, 4765250 #### [facility] [address] [place] [address] MCH (RBC) [Entitic mass] 31.8 pg Normal 27.0-34.0 [facility] Comment on above: Performed By: #### 2 964283, 38266273, 2923494, 22354862, 9142975 #### [facility] [address] [place] [address] MCHC (RBC) [Mass/Vol] 32.6 g/dL Normal 31.4-36.0 [facility] Comment on above: Performed By: #### 2 172880, 19220573, 6748454, 77854173, 5179729 #### [facility] [address] [place] [address] MCV (RBC) [Entitic vol] 97.3 fL Normal 80.0-100.0 [facility] Comment on above: Performed By: #### 2 550232, 30800649, 7698891, 59318440, 7119816 #### [facility] [address] [place] [address] Platelet mean volume (Bld) [Entitic vol] 8.1 fL Normal 6.4-10.8 [facility] Comment on above: Performed By: #### 2 836563, 95675560, 8593847, 84812012, 6282625 #### [facility] [address] [place] [address] Platelets (Bld) [#/Vol] 215.0 E9/L Normal 150.0-500.0 [facility] Comment on above: Performed By: #### 2 803027, 47011996, 2274281, 18344462, 0820914 #### [facility] [address] [place] [address] RBC (Bld) [#/Vol] 4.4 E12/L Normal 4.3-5.9 [facility] Comment on above: Performed By: #### 2 645528, 75895906, 0640380, 39048043, 1322413 #### [facility] [address] [place] [address] WBC corrected for nucl RBC Auto (Bld) [#/Vol] 5.0 E9/L Normal 4.0-11.0 [facility] Comment on above: Performed By: #### 2 355076, 27876742, 3505655, 06720975, 9129364 #### [facility] [address] [place] [address] CHEMISTRYOrdered By: SYSTEM SYSTEM on 11-16-2022 Anion [...] rate/Area] mL/min/1.73 m2 Normal >=59mL/min/ 1.73 m2 [facility] Chem S GFR/1.73 sq M.predicted among non-blacks MDRD (S/P/Bld) [Vol rate/Area] mL/min/1.73 m2 Normal >=59mL/min/ 1.73 m2 [facility] Chem S Glucose [Mass/Vol] 73 mg/dL Normal [...] Treatmenton 11-07 Consent for Treatment [id number] 0CD:127 Normal [facility] HEMATOLOGYOrdered By: SYSTEM SYSTEM on 11-16-2022 [...] Coag (PPP) [Time] 33.2 second(s) Normal 25.1-36.5 [facility] Comment on above: Result Comment: Para [...] the same coagulation reagent and instrumentation as [facility]. Currently there are no coagulation studies available worldwide for children to 14 days, and no normal ranges. Heparin therapeutic range (represented by Anti-Factor Xa activity of 0.2 - 0.4 U/mL) corresponds to PTT of 56.6 - 109.0 sec. Performed By: #### 2 484898, 27486837, 8518809, 72065276, 1786356 #### [facility] [address] [place] [address] INR Coag (PPP) [Relative time] 1.1 {INR} Invalid Interpretation Code [facility] Comment on above: Result Comment: INR results are specifically intended to assess patients stabilized on long-term Anticoagulation therapy suggested INR?s ?Less Intensive Anticoagulation? 2.0 ? 3.0 Conventional Range 3.0 ? 4.5 Performed By: #### 2 037013, 24031485, 4552966, 47047148, 6343037 #### [facility] [address] [place] [address] PT Coag (PPP) [Time] 12.6 second(s) High 9.4-12.5 [facility] Comment on above: Result Comment: 15 [...] the same coagulation reagent and instrumentation as [facility]. Currently there are no coagulation studies available worldwide for children to 14 days, and no normal ranges. Performed By: #### 2 102279, 13410819, 2080807, 96988533, 9565176 #### [facility] [address] [place] [address] UA With Cult Reflexon 2022 Bacteria LM Ql (Urine sed) TRACE Normal Trace [facility] Comment on above: Performed By: #### 1 2817896 ####[address] [place] [address] Bilirubin Ql (U) Negative Normal Negative [facility] Comment on above: Performed By: #### 1 8145495 ####[address] [address] Clarity (U) CLEAR Normal Clear [facility] Comment on above: Performed By: #### 1 2008157 ####[facility] [address] [place] [address] Color (U) YELLOW Normal Yellow [facility] Comment on above: Performed By: #### 1 3818018 ####[address] [address] Epithelial cells.squamous LM.HPF (Urine sed) [#/Area] 0-2 Normal 0-2 [facility] Comment on above: Performed By: #### 1 4798564 ####[address] [place] [address] Glucose Test strip (U) [Mass/Vol] Negative Normal Negative [facility] Comment on above: Performed By: #### 1 1280604 ####[address] [place] [address] Hemoglobin Ql (U) Negative Normal Negative [facility] Comment on above: Performed By: #### 1 2519613 ####[address] [address] Ketones (U) [Mass/Vol] Negative Normal Negative [facility] Comment on above: Performed By: #### 1 0536546 ####[address] [address] [place].plasma/Lithiu m.RBC (Bld) [Mass ratio] 0-3 Normal 0-3 [facility] Comment on above: Performed By: #### 1 3207533 ####[address] [address] Nitrite Ql (U) Negative Normal Negative [facility] Comment on above: Performed By: #### 1 2072682 ####[address] [address] pH (U) 7.5 [pH] Invalid Interpretation Code 5.0-9.0 [facility] Comment on above: Performed By: #### 1 0412555 ####[address] [address] Protein (U) [Mass/Vol] Negative Normal Negative [facility] Comment on above: Performed By: #### 1 3729321 ####[address] [address] Specific gravity (U) [Rel density] 1.020 Invalid Interpretation Code 1.005-1.030 [facility] Comment on above: Performed By: #### 1 4283662 ####[address] [address] Type of Urine collection method Clean Catch Normal [facility] Comment on above: Performed By: #### 1 2535738 ####[address] [address] Urobilinogen Qn (U) 0.2 {Jaleel'U}/dL Normal 0.0-1.0 [facility] Comment on above: Performed By: #### 1 1311588 ####[facility] [address] [place] [address] WBC Auto Ql (U) Negative Normal Negative [facility] Comment on above: Performed By: #### 1 8728010 ####[facility] [address] [place] [address] WBC LM.HPF (Urine sed) [#/Area] 0-5 Normal 0-5 [facility] Comment on above: Performed By: #### 1 6158078 ####[facility] [address] [place] [address] URINALYSISOrdered By: Jayme Ramirez on 11-16-2022 Bacteria [...] AM) Normal Negative [facility] UA Auto SS [place].plasma/Lithiu m.RBC (Bld) [Mass ratio] 0-3 /HPF Normal [...] AM) Invalid Interpretation Code 1.005 - 1.030 [facility] UA Auto SS UA Spec Desc Clean Catch (11/16/22 9:55 AM) Normal [facility] UA Auto SS Urobilinogen Qn (U) 0.1933995 {Jaleel'U}/dL Normal 0.0 - 1.0 EU/dL [facility] UA Auto SS WBC Auto Ql (U) Negative (11/16/22 9:55 AM) Normal Negative [facility] UA Auto SS WBC LM.HPF (Urine sed) [#/Area] 0-5 /HPF Normal 0-5/HPF [facility] UA Auto SS XR Chest 2 Viewson [...] Ferraro FINAL REPORT Dictated: 11/16/2022 12:43 pm Doni Burton MD Signed (Electronic Signature): 11/16/2022 12:43 pm Signed by: Doni Burton MD Transcribed by: JENNIFER Technologist: CHAPARRO Technical Comments Radiation Dose: Ka,r in mGy = na DAP = na Normal [facility] eGFRon 11-16-2022 GFR/1.73 sq M.predicted among blacks MDRD (S/P/Bld) [Vol rate/Area] mL/min/{1.73_m2} Normal >=59 [facility] Comment on above: Order Comment: Order added by Discern Expert. Result Comment: eGFR is race adjusted. AA=. Performed By: #### 2 196615, 67440241, 0796628, 67254632, 5724996 ####[facility] [address] [place] [address] GFR/1.73 sq M.predicted among non-blacks MDRD (S/P/Bld) [Vol rate/Area] mL/min/{1.73_m2} Normal >=59 [facility] Comment on above: Order Comment: Order added by Discern Expert. Result Comment: [employer] jarred kidney disease could be indicated at eGFR's of less than 60 mL/min/1.73m2. Kidney failure is indicated at less than 15 mL/min/1.73m2. Performed By: #### 2 361881, 18695706, 2519765, 03978845, 1247542 ####[facility] [address] [place] [address] RAD - Ultrasound Reporton RAD - Ultrasound Report [id number]#1.0 0CD:127 Normal [facility] US SCROTUMon 10-17-2022 US SCROTUM EXAM: [...] by: JERMAIN BROWN Date: 2022-10-17 15:11 Normal [facility] Screenson 10-10-2022 Screens [id number] 0CD:127 Normal [facility] Patient Educationon 10-09-19 Patient Education Urology [...] Follow these instructions at home: ? Take erom-rxq-vnqvnum and prescription medicines only as told by [...] You d (more content not included)... Normal [facility] Urology Office/Clinic Noteon 10-09-2022 Urology Office/Clinic [...] Information [employer] POTTS, Chrissie Bradley, URL [address] [place] [phone]- Additional Instructions: Patient Education Benign Prostatic [...] BNT-162b2 vax (more content not included)... Normal [facility] Comment on above: Result Comment: Elec [...] KINA MAHMOOD Date: 2021-12-02 08:29 Normal [facility] CBC AUTO DIFFon 11-22-2021 BASO # 0.0 103/ul Normal 0.0-0.1 [facility] Comment on above: Performed By: #### C BC #### [facility] [address] [address] [address] Ever Kenny Basophils/100 WBC (Bld) 0.2 % Normal 0.2-2.0 [facility] Comment on above: Performed By: #### C BC #### [facility] [address] [address] [address] Ever Kenny EO # 0.3 103/ul Normal 0.0-0.7 [facility] Comment on above: Performed By: #### C BC #### [facility] [address] [address] [address] Ever Kenny Eosinophils/100 WBC (Bld) 5.5 % Normal 0.9-7.0 [facility] Comment on above: Performed By: #### C BC #### [facility] [address] [place] [address] Dr. Ever Kenny Erythrocyte distribution width (RBC) [Ratio] 12.8 % Normal 11.0-15.0 [facility] Comment on above: Performed By: #### C BC #### [facility] [address] [place] [address] Dr. Ever Kenny Hematocrit (Bld) [Volume fraction] 47.1 % Normal 42.0-54.0 [facility] Comment on above: Performed By: #### C BC #### [facility] [address] [place] [address] Dr. Ever Kenny Hemoglobin (Bld) [Mass/Vol] 15.2 g/dL Normal 14.0-18.0 [facility] Comment on above: Performed By: #### C BC #### [facility] [address] [place] [address] Dr. Ever Kenny IG # 0.03 10e3/ul Normal 0.00-0.03 [facility] Comment on above: Performed By: #### C BC #### [facility] [address] [place] [address] Dr. Ever Kenny IG % 0.5 % Normal 0.0-0.5 [facility] Comment on above: Performed By: #### C BC #### [facility] [address] [place] [address] Dr. Ever Kenny LYMPH # 1.7 103/ul Normal 1.2-3.8 [facility] Comment on above: Performed By: #### C BC #### [facility] [address] [place] [address] Dr. Ever Kenny Lymphocytes/100 WBC (Bld) 26.9 % Normal 20.5-60.0 [facility] Comment on above: Performed By: #### C BC #### [facility] [address] [place] [address] Dr. Ever Kenny MANUAL DIFF REQ NO Normal [facility] Comment on above: Performed By: #### C BC #### [facility] [address] [place] [address] Dr. Ever Kenny MCH (RBC) [Entitic mass] 31.6 pg Normal 25.9-34.0 [facility] Comment on above: Performed By: #### C BC #### [facility] [address] [place] [address] Dr. Ever Kenny MCHC (RBC) [Mass/Vol] 32.3 g/dL Normal 29.9-35.2 [facility] Comment on above: Performed By: #### C BC #### [facility] [address] [place] [address] Dr. Ever Kenny MCV (RBC) [Entitic vol] 97.9 fL Critically high 80.0-94.0 [facility] Comment on above: Performed By: #### C BC #### [facility] [address] [place] [address] Dr. Ever Kenny MONO # 0.7 103/ul Normal 0.3-0.8 [facility] Comment on above: Performed By: #### C BC #### [facility] [address] [place] [address] Dr. Ever Kenny Monocytes/100 WBC (Bld) 11.1 % Normal 1.7-12.0 [facility] Comment on above: Performed By: #### C BC #### [facility] [address] [place] [address] Dr. Ever Kenny NEUT # 3.4 103/ul Normal 1.4-6.5 [facility] Comment on above: Performed By: #### C BC #### [facility] [address] [place] [address] Dr. Ever Kenny Neutrophils/100 WBC (Bld) 55.8 % Normal 43.0-75.0 [facility] Comment on above: Performed By: #### C BC #### [facility] [address] [place] [address] Dr. Ever Kenny Platelet mean volume (Bld) [Entitic vol] 9.2 fL Critically low 9.5-13.5 [facility] Comment on above: Performed By: #### C BC #### [facility] [address] [address] [address] Ever Kenny PLT 222 103/ul Normal 150-450 [facility] Comment on above: Performed By: #### C BC #### [facility] [address] [address] [address] Ever Kenny RBC 4.81 106/ul Normal 4.70-6.10 [facility] Comment on above: Performed By: #### C BC #### [facility] [address] [address] [address] Ever Kenny WBC 6.1 103/ul Normal 4.0-11.0 [facility] Comment on above: Performed By: #### C BC #### [facility] [address] [place] [address] Dr. Ever Kenny LIPID PROFILEon 11-22-2021 CHOL-HDL RATIO NORM SEE BELOW Normal [facility] Comment on above: Result Comment: 3.3 - 4.4 LOW RISK 4.4 - 7.1 AVERAGE RISK 7.1 - 11.0 MODERATE RISK >11.0 HIGH RISK Performed By: #### L IPID, CMP #### [facility] [address] [place] [address] Dr. Ever Kenny Cholesterol [Mass/Vol] 206 mg/dL Critically high <=200 [facility] Comment on above: Performed By: #### L IPID, CMP #### [facility] [address] [place] [address] Dr. Ever Kenny Cholesterol in HDL [Mass/Vol] 57 mg/dL Normal [facility] Comment on above: Performed By: #### L IPID, CMP #### [facility] [address] [place] [address] Dr. Ever Kenny Cholesterol in LDL [Mass/Vol] 129.4 mg/dL Normal [facility] Comment on above: Performed By: #### L IPID, CMP #### [facility] [address] [place] [address] Dr. Ever Kenny Cholesterol.total/Cho lesterol in HDL [Mass ratio] 3.6 {ratio} Normal [facility] Comment on above: Performed By: #### L IPID, CMP #### [facility] [address] [address] [address] Ever Kenny HDL NORMAL > or = 60 mg/dl - LO W CARDIOVASCULAR RISK <40 mg/dl - HIGH CARDIOVASCULAR RISK Normal [facility] Comment on above: Performed By: #### L IPID, CMP #### [facility] [address] [place] [address] Dr. Ever Kenny LDL CALC NORMAL SEE BELOW Normal [facility] Comment on above: Result Comment: <100 mg/dl OPTIMAL 100 - 129 mg/dl NEAR OR ABOVE OPTIMAL 130 - 159 mg/dl BORDERLINE HIGH 160 - 189 mg/dl HIGH >190 mg/dl VERY HIGH Performed By: #### L IPID, CMP #### [facility] [address] [place] [address] Dr. Ever Kenny Triglyceride [Mass/Vol] 98 mg/dL Normal <=150 [facility] Comment on above: Performed By: #### L IPID, CMP #### [facility] [address] [address] [address] Ever Kenny VLDL CALC 19.6 mg/dL Normal [facility] Comment on above: Performed By: #### L IPID, CMP #### [facility] [address] [place] [address] Dr. Ever Kenny PROF 14(COMP METB)on 022 Albumin [Mass/Vol] 3.9 g/dL Normal 3.5-5.0 [facility] Comment on above: Performed By: #### L IPID, CMP #### [facility] [address] [place] [address] Dr. Ever Kenny Albumin/Globulin [Mass ratio] 1.3 {ratio} Normal [facility] Comment on above: Performed By: #### L IPID, CMP #### [facility] [address] [place] [address] Dr. Ever Kenny ALP [Catalytic activity/Vol] 52 U/L Normal 38-126 [facility] Comment on above: Performed By: #### L IPID, CMP #### [facility] [address] [place] [address] Dr. Ever Kenny ALT [Catalytic activity/Vol] 24 U/L Normal 21-72 [facility] Comment on above: Performed By: #### L IPID, CMP #### [facility] [address] [address] [address] Ever Kenny Anion gap [Moles/Vol] 9.8 mmol/L Normal [facility] Comment on above: Performed By: #### L IPID, CMP #### [facility] [address] [address] [address] Ever Kenny AST [Catalytic activity/Vol] 15 U/L Critically low 17-59 [facility] Comment on above: Performed By: #### L IPID, CMP #### [facility] [address] [place] [address] Dr. Ever Kenny Bilirubin [Mass/Vol] 0.7 mg/dL Normal 0.2-1.3 [facility] Comment on above: Performed By: #### L IPID, CMP #### [facility] [address] [place] [address] Dr. Ever Kenny Calcium [Mass/Vol] 8.8 mg/dL Normal 8.4-10.2 [facility] Comment on above: Performed By: #### L IPID, CMP #### [facility] [address] [place] [address] Dr. Ever Kenny Chloride [Moles/Vol] 106 mmol/L Normal 98-107 [facility] Comment on above: Performed By: #### L IPID, CMP #### [facility] [address] [place] [address] Dr. Ever Kenny CO2 [Moles/Vol] 29.5 mmol/L Normal 22.0-30.0 [facility] Comment on above: Performed By: #### L IPID, CMP #### [facility] [address] [place] [address] Dr. Ever Kenny Creatinine [Mass/Vol] 1.05 mg/dL Normal 0.66-1.25 [facility] Comment on above: Performed By: #### L IPID, CMP #### [facility] [address] [address] [address] Ever Kenny EGFR-AF SWISS >60 Normal >=60 [facility] Comment on above: Performed By: #### L IPID, CMP #### [facility] [address] [address] [address] Ever Kenny EGFR-NON AF SWISS >60 Normal >=60 [facility] Comment on above: Performed By: #### L IPID, CMP #### [facility] [address] [address] [address] Ever Kenny Globulin (S) [Mass/Vol] 2.9 g/dL Normal [facility] Comment on above: Performed By: #### L IPID, CMP #### [facility] [address] [address] [address] Ever Kenny Glucose [Mass/Vol] 105 mg/dL Normal 74-106 [facility] Comment on above: Performed By: #### L IPID, CMP #### [facility] [address] [address] [address] Ever Kenny Potassium [Moles/Vol] 4.3 mmol/L Normal 3.4-5.0 [facility] Comment on above: Performed By: #### L IPID, CMP #### [facility] [address] [address] [address] Ever Kenny Protein [Mass/Vol] 6.8 g/dL Normal 6.1-8.2 [facility] Comment on above: Performed By: #### L IPID, CMP #### [facility] [address] [address] [address] Ever Kenny Sodium [Moles/Vol] 141 mmol/L Normal 137-145 [facility] Comment on above: Performed By: #### L IPID, CMP #### [facility] [address] [address] [address] Ever Kenny Urea nitrogen [Mass/Vol] 19.0 mg/dL Normal 9.0-20.0 [facility] Comment on above: Performed By: #### L IPID, CMP #### [facility] [address] [address] [address] Ever Kenny Urea nitrogen/Creatinine [Mass ratio] 18.1 mg/mg Normal [facility] Comment on above: Performed By: #### L IPID, CMP #### [facility] [address] [address] [address] Ever Kenny UA (CLEAN/CATCH) MICROSCOPIC IF INDICATEon 11-22-2021 Bilirubin Ql (U) Negative Normal NEGATIVE [facility] Comment on above: Performed By: #### U LAYLA UMICRO #### [facility] [address] [address] [address] Ever Kenny Clarity (U) CLEAR Normal CLEAR [facility] Comment on above: Performed By: #### U LAYLA UMICRO #### [facility] [address] [place] [address] Dr. Ever Kenny Color (U) LT. YELLOW Normal YELLOW [facility] Comment on above: Performed By: #### U LAYLA UMICRO #### [facility] [address] [address] [address] Ever Kenny Glucose Ql (U) Negative Normal NEGATIVE [facility] Comment on above: Performed By: #### Will RICH UMICRO #### [facility] [address] [place] [address] Dr. Ever Kenny Hemoglobin Ql (U) MODERATE Abnormal NEGATIVE [facility] Comment on above: Performed By: #### Will RICH UMICRO #### [facility] [address] [address] [address] Ever Kenny Ketones Ql (U) Negative Normal NEGATIVE [facility] Comment on above: Performed By: #### U LAYLA UMICRO #### [facility] [address] [address] [address] Ever Kenny LEUKOCYTES Negative Normal NEGATIVE [facility] Comment on above: Performed By: #### U LAYLA UMICRO #### [facility] [address] [address] [address] Ever Kenny Nitrite Ql (U) Negative Normal NEGATIVE [facility] Comment on above: Performed By: #### Will RICH UMICRO #### [facility] [address] [place] [address] Dr. Ever Kenny pH (U) 7.0 [pH] Normal 5-9 [facility] Comment on above: Performed By: #### Will RICH UMICRO #### [facility] [address] [place] [address] Dr. Ever Kenny SPEC GRAVITY 1.010 Normal 1.005-<=1.0 25 [facility] Comment on above: Performed By: #### Will RICH UMICRO #### [facility] [address] [place] [address] Dr. Ever Kenny UA PROTEIN Negative Normal NEGATIVE/ TRACE [facility] Comment on above: Performed By: #### Will RICH UMICRO #### [facility] [address] [place] [address] Dr. Ever Kenny UR MICRO IND INDICATED Normal [facility] Comment on above: Performed By: #### FAIZA WARRENICRO #### [facility] [address] [place] [address] Dr. Ever Kenny Urobilinogen Qn (U) 0.2 {Jaleel'U}/dL Normal 0.2 - 1. 0 [facility] Comment on above: Performed By: #### Will IRCH UMICRO #### [facility] [address] [place] [address] Dr. Ever Kenny URINE MICROSCOPIC ONLYon BACTERIA NONE SEEN Normal NONE SEEN [facility] Comment on above: Performed By: #### Will RICH UMICRO #### [facility] [address] [place] [address] Dr. Ever Kenny Bacteria identified Cx Nom (U) NOT INDICATED Normal [facility] Comment on above: Performed By: #### Will RICH UMICRO #### [facility] [address] [place] [address] Dr. Ever Kenny CAST NONE SEEN Normal NONE SEEN [facility] Comment on above: Performed By: #### U ARMICR, UMICRO #### [facility] [address] [address] [address] Ever Kenny Crystals LM Nom (Urine sed) NONE SEEN Normal NONE SEEN [facility] Comment on above: Performed By: #### U ARMICR, UMICRO #### [facility] [address] [address] [address] Ever Kenny Epithelial cells LM Ql (Urine sed) NONE SEEN Normal NONE SEEN /RARE [facility] Comment on above: Performed By: #### U ARMICR, UMICRO #### [facility] [address] [address] [address] Ever Kenny MUCOUS SMALL Abnormal NONE SEEN [facility] Comment on above: Performed By: #### U ARMICR, UMICRO #### [facility] [address] [address] [address] Ever Kenny RBC 0-2 Normal 0-2 [facility] Comment on above: Performed By: #### U ARMICR, UMICRO #### [facility] [address] [address] [address] Ever Kenny SPERMATOZOA, UR PRESENT Abnormal [facility] Comment on above: Performed By: #### U ARMICR, UMICRO #### [facility] [address] [address] [address] Ever Kenny WBC NONE SEEN Normal NONE SEEN [facility] Comment on above: Performed By: #### U ARMICR, UMICRO #### [facility] [address] [address] [address] Ever Kenny Vital Signs Date Time Vital Sign Value Performing Clinician Facility 09-08-2023 12:00-0500 Body height 168.91 cm Jeannie Mclean Other [facility] Other 09-08-2023 12:00-0500 Body mass index (BMI) [Ratio] 26.8 kg/m2 Jeannie Mclean Other [facility] Other 09-08-2023 12:00-0500 Body temperature 98.9 [degF] Jeannie Mclean Other [facility] Other 09-08-2023 12:00-0500 Body weight 76.48 kg Jeannie Mclean Other [facility] Other 09-08-2023 12:00-0500 Respiratory rate 18 /min Jeannie Mclean Other [facility] Other 09-08-2023 12:00-0500 SaO2% (BldA) [Mass fraction] 93 % Jeannie Mclean Other [facility] Other 08-13-2023 10:20-0500 Body height 168.91 cm Jama King Other [facility] Other 08-13-2023 10:20-0500 Body mass index (BMI) [Ratio] 27.42 kg/m2 Jama Christine Other [facility] Other 08-13-2023 10:20-0500 Body weight 78.25 kg Jama King Other [facility] Other 08-13-2023 10:20-0500 Diastolic blood pressure 70 mm[Hg] Jama Scovanner Other [facility] Other 08-13-2023 10:20-0500 Systolic blood pressure 132 mm[Hg] Jama Scovanner Other [facility] Other 07-09-2023 10:20-0400 Body height 168.91 cm Jama King Other [facility] Other 07-09-2023 10:20-0400 Body mass index (BMI) [Ratio] 27.34 kg/m2 Jama Ehatilio Other [facility] Other 07-09-2023 10:20-0400 Body weight 78.02 kg Jama Scovanner Other [facility] Other 07-09-2023 10:20-0400 Diastolic blood pressure 67 mm[Hg] Jama Scovanner Other [facility] Other 07-09-2023 10:20-0400 Systolic blood pressure 129 mm[Hg] Jama Scovanner Other [facility] Other 03-04-2023 09:03-0400 Blood Pressure Location Chrissie DNsolution [facility] 03-04-2023 09:03-0400 Diastolic blood pressure 78 mm[Hg] Chrissie DNsolution [facility] 03-04-2023 09:03-0400 Heart rate 68 /min Chrissie DNsolution [facility] 03-04-2023 09:03-0400 Respiratory rate 16 /min Chrissie DNsolution [facility] 03-04-2023 09:03-0400 Systolic blood pressure 128 mm[Hg] Chrissie COOK [facility] 12-18-2022 11:15-0400 Body height 168.91 cm Jeannie Mclean Other [facility] Other 12-18-2022 11:15-0400 Body mass index (BMI) [Ratio] 29.41 kg/m2 Jeannie Mclean Other [facility] Other 12-18-2022 11:15-0400 Body temperature 97.1 [degF] Jeannie Mclean Other [facility] Other 12-18-2022 11:15-0400 Body weight 83.92 kg Jeannie Mclean Other [facility] Other 12-18-2022 11:15-0400 Diastolic blood pressure 75 mm[Hg] Jeannie Mclean Other [facility] Other 12-18-2022 11:15-0400 Respiratory rate 18 /min Jeannie Mclean Other [facility] Other 12-18-2022 11:15-0400 SaO2% (BldA) [Mass fraction] 96 % Jeannie Mclean Other [facility] Other 12-18-2022 11:15-0400 Systolic blood pressure 125 mm[Hg] Jeannie Mclean Other [facility] Other 11-29-2022 12:25-0400 Body temperature 97.7 [degF] [facility]en[facility] 11-29-2022 12:25-0400 Diastolic blood pressure 89 mm[Hg] ChrissieZenDay [facility] 11-29-2022 12:25-0400 Heart rate 64 /min [facility]ieZenDay [facility] 11-29-2022 12:25-0400 Respiratory rate 18 /min [facility]ieZenDay [facility] 11-29-2022 12:25-0400 SaO2% (BldA) [Mass fraction] 97 % Chrissie SOTELO [facility] 11-29-2022 12:25-0400 Systolic blood pressure 139 mm[Hg] Chrissie SOTELO [facility] 11-29-2022 11:25-0400 Blood Pressure Location Chrissie SOTELO [facility] 11-29-2022 11:25-0400 Body temperature 97.7 [degF] Chrissie SOTELO [facility] 11-29-2022 11:25-0400 Diastolic blood pressure 72 mm[Hg] Chrissie SOTELO [facility] 11-29-2022 11:25-0400 Heart rate 62 /min Chrissie SOTELO [facility] 11-29-2022 11:25-0400 Respiratory rate 18 /min Chrissie SOTELO [facility] 11-29-2022 11:25-0400 SaO2% (BldA) [Mass fraction] 97 % Chrissie SOTELO [facility] 11-29-2022 11:25-0400 Systolic blood pressure 135 mm[Hg] Chrissie SOTELO [facility] 11-29-2022 11:11-0400 Blood Pressure Location Chrissie SOTELO [facility] 11-29-2022 11:11-0400 Body temperature 96.8 [degF] Chrissie SOTELO [facility] 11-29-2022 11:11-0400 Diastolic blood pressure 68 mm[Hg] Chrissie SOTELO [facility] 11-29-2022 11:11-0400 Heart rate 61 /min Chrissie SOTELO [facility] 11-29-2022 11:11-0400 Respiratory rate 16 /min Chrsisie SOTELO [facility] 11-29-2022 11:11-0400 SaO2% (BldA) [Mass fraction] 96 % Chrissie SOTELO [facility] 11-29-2022 11:11-0400 Systolic blood pressure 133 mm[Hg] Chrissie SOTELO [facility] 11-29-2022 11:01-0400 Blood Pressure Location Chrissie SOTELO [facility] 11-29-2022 10:40-0400 Respiratory rate 13 /min Chrissie SOTELO [facility] 11-29-2022 10:35-0400 Respiratory rate 12 /min Chrissie SOTELO [facility] 11-29-2022 10:30-0400 Respiratory rate 12 /min Chrissie SOTELO [facility] 11-29-2022 08:30-0400 Body temperature 97.7 [degF] hCrissie SOTELO [facility] 11-29-2022 08:30-0400 Heart rate 78 /min Chrissie SOTELO [facility] 11-21-2022 10:36-0400 Diastolic blood pressure 78 mm[Hg] Antoni P House Work Phone: [facility] [employer] 250 DO Work Phone: 11-21-2022 10:36-0400 Systolic blood pressure 122 mm[Hg] Antoni P House Work Phone: [facility] 250 DO Work Phone: 11-21-2022 10:34-0400 Body height 170.18 cm Antoni P House Work Phone: [facility] 250 DO Work Phone: 11-21-2022 10:34-0400 Body mass index (BMI) [Ratio] 28.98 kg/m2 Antoni P House Work Phone: [facility] 250 DO Work Phone: 11-21-2022 10:34-0400 Body surface area Derived from formula 1.96 m2 Antoni P House Work Phone: [facility] 250 DO Work Phone: 11-21-2022 10:34-0400 Body weight 83.92 kg Antoni P House Work Phone: [facility] 250 DO Work Phone: 11-21-2022 10:34-0400 Diastolic blood pressure 76 mm[Hg] Antoni P House Work Phone: [facility] 250 DO Work Phone: 11-21-2022 10:34-0400 Heart rate 67 /min Antoni P House Work Phone: [facility] 250 DO Work Phone: 11-21-2022 10:34-0400 Systolic blood pressure 124 mm[Hg] Antoni P House Work Phone: [facility] 250 DO Work Phone: 11-16-2022 09:42-0500 Diastolic blood pressure 78 mm[Hg] Chrissie SOTELO [facility] 11-16-2022 09:42-0500 Heart rate 60 /min Chrissie COOK [facility] 11-16-2022 09:42-0500 Mean blood pressure 96 mm[Hg] Chrissie COOK [facility] 11-16-2022 09:42-0500 Systolic blood pressure 132 mm[Hg] Chrissie COOK [facility] 11-16-2022 09:42-0500 Heart rate 60 /min Chrissie SOTELO [facility] 11-16-2022 09:42-0500 SaO2% (BldA) [Mass fraction] 98 % Chrissie SOTELO [facility] 11-16-2022 09:42-0500 Body temperature 97.88 [degF] Chrissie SOTELO [facility] 11-16-2022 09:41-0500 Diastolic blood pressure 78 mm[Hg] Chrissie SOTELO [facility] 11-16-2022 09:41-0500 Mean blood pressure 97 mm[Hg] Chrissie SOTELO [facility] 11-16-2022 09:41-0500 Systolic blood pressure 134 mm[Hg] Chrissie SOTELO [facility] 01-15-2022 13:36-0400 Blood Pressure Location Chino Flores Jr. [facility] 01-15-2022 13:36-0400 Diastolic blood pressure 55 mm[Hg] Chino Flores Jr. [facility] 01-15-2022 13:36-0400 Heart rate 73 /min Chino Flores Jr. [facility] 01-15-2022 13:36-0400 Systolic blood pressure 128 mm[Hg] Chino Flores Jr. [facility] Encounters Encounter Date Encounter Type Care Provider Facility Start: 03-09-2024 ambulatory Chrissie SOTELO Facility :[facility] Start: 10-01-2023 End: 10-01-2023 ambulatory SHAIKH ILYAD Not Available Start: 09-08-2023 End: 09-08-2023 ambulatory Jeannie Mclean Other [facility] Other Start: 09-08-2023 Office outpatient visit 25 minutes Jeannie Mclean [facility] Start: 08-28-2023 End: 08-28-2023 ambulatory SHAIKH LORINWWAD Not Available Start: 08-13-2023 End: 08-13-2023 ambulatory Jama Scovanner Other [facility] Other Start: 08-13-2023 Office outpatient visit 15 minutes Jama Scovanner [facility] Start: 07-09-2023 End: 07-09-2023 ambulatory Jama Scovanner Other [facility] Other Start: 07-09-2023 Office outpatient ne w 30 minutes Jama Scovanner [facility] Start: 03-04-2023 End: 03-05-2023 ambulatory Chrissie SOTELO Facility:[facility] Start: 03-04-2023 End: 03-04-2023 Patient encounter procedure Chrissie Bradley GO [facility] Start: 01-21-2023 ambulatory Sam Ralf AHMADI Facility: [facility] Start: 12-21-2022 End: 12-22-2022 ambulatory Chrissiesudheer SOTELO Facility:[facility] Start: 12-21-2022 End: 12-21-2022 Patient encounter procedure Chrissie SOTELO [facility] Start: 12-18-2022 End: 12-18-2022 ambulatory Jeannie Mclean Other [facility] Other Start: 12-18-2022 Office outpatient visit 15 minutes Jeannie iVnay [facility] Start: 11-29-2022 End: 11-29-2022 ambulatory Chrissie SOTELO Facility:[facility] Start: 11-29-2022 End: 11-29-2022 Admission to same day surgery center Chrissie SOTELO [facility] Start: 11-21-[address] Antoni Cho Facility: Start: 11-21-2022 Office consultation new/estab patient 60 min Antoni Cho Work Phone: [facility] 250 DO Work Phone: Start: 11-16-2022 End: 11-17-[address] Antoni Cho Facility: Start: 11-16-2022 End: 11-16-2022 Patient encounter procedure Chrissie SOTELO [facility] Start: 10-17-2022 End: 10-18-[address] CHRISSIE SOTELO Facility:[facility] Start: 10-09-2022 End: 10-10-2022 ambulatory Chrissie SOTELO Facility: [facility] Start: 10-09-2022 End: 10-09-2022 Patient encounter procedure Chrissie SOTELO [facility] Start: 01-15-2022 End: 01-15-2022 Patient encounter procedure Chino Flores Jr. [facility] Start: 12-01-2021 End: 12-02-[address] ANTONI CHO Facility:[facility] Start: 11-22-2021 End: 11-23-[address] ANTONI CHO Facility:[facility] Patient encounter status Antoni Cho Work Phone: [place] [address] DO Work Phone: Procedures Date Procedure Procedure Detail Performing Clinician Start: 11-29-2022 Exploration of scrotum Chrissie GO Start: 11-29-2022 Spermatic cord struc ture (body structure) Chrissie GO Start: 01-15-2022 Cystoscopy Chino velazquez Jr. Start: 11-22-[address] LINDA SOTELO Comment on above: Performed By: #### P SAD #### [facility] [address] [place] [address] Dr. Ever Kenny Start: 09-09-2019 Total colonoscopy Sarah Cho Work Phone: Colonoscopy Chino Olivo Excision of lipoma Antoni Cho Work Phone: Tonsillectomy Chino rosa Tonsillectomy Antoni oswald Work Phone: Plan of Treatment Date Care Activity Detail Author Start: 11-12-2023 FUV, Provider: Taryn Real, Status: Pen, Time: 10:50 AM [facility], Provider: Taryn Real, Status: Pen, Time: 10:50 AM [address] [address] DO Work Phone: Immunizations Immunization Date Immunization Notes Care Provider Lorin palmer 07-10-2022 Pfizer COVID-19 Vac Bivalent 30 MCG/0.3ML Intramuscular Suspension Antoni Cho Work Phone: [facility] 06-15-2022 Fluzone High-Dose Quadrivalent 0.7 ML Intramuscular Suspension Prefilled Syringe Antoni Cho Work Phone: [address] [address] DO Work Phone: 06-15-2022 influenza virus vaccine, unspecified formulation Chrissie GO [facility] 08-10-2021 Pfizer-BioNTech COVID-19 Vacc 30 MCG/0.3ML Intramuscular Suspension Antoni P House Work Phone: [facility] 06-09-2021 SARS-CoV-2 (COVID-19 ) mRNA BNT-162b2 vax Chino Flores Jr. [facility] 12-08-2020 SARS-CoV-2 (COVID-19 ) mRNA BNT-162b2 vax Chino Flores Jr. [facility] 12-06-2020 Pfizer-BioNTech COVID-19 Vacc 30 MCG/0.3ML Intramuscular Suspension Antoni P House Work Phone: [facility] 11-14-2020 Pfizer-BioNTech COVID-19 Vacc 30 MCG/0.3ML Intramuscular Suspension Antoni P House Work Phone: [facility] 11-07-2020 SARS-CoV-2 (COVID-19 ) mRNA BNT-162b2 jenx Chino Flores Jr. [facility] 09-03-2020 influenza virus vaccine, unspecified formulation Chrissie SOTELO [facility] 09-03-2020 influenza, high dose seasonal, preservative-free Antoni P House Work Phone: [facility] 250 DO Work Phone: 09-03-2020 pneumococcal conjuga te vaccine, 13 valent Antoni P House Work Phone: [facility] 06-27-2019 influenza virus vaccine, unspecified formulation Chrissie SOTELO [facility] 06-27-2019 influenza, injectabl e, quadrivalent, preservative free Antoni Cho Work Phone: [facility] 250 DO Work Phone: 06-27-2019 pneumococcal polysaccharide vaccine, 23 valent Antoni Bradley [place] Work Phone: [facility] 09-12-2014 tetanus toxoid, redu brenda diphtheria toxoid, and acellular pertussis vaccine, adsorbed Jeannie Mclean Other [facility] Other Payers Date Payer Category Payer Medicare [id number] 2022 Private Health Insurance [id number] 1959 Medicare [id number] 1959 Private Health Insurance [facility] [id number] 1940 Unknown [id number] 2.16.84 [id number] 1940 Unknown [id number] 2.16.84 [id number] 1940 Unknown [id number] 2.16.84 [id number] 1940 Unknown [id number] 2.16. [id number] 1940 Unknown [id number] 2.16. [id number] 1940 Unknown [id number] 2.16.8 [id number] 1940 Unknown [id number] 2.16.8 [id number] 1940 Unknown [id number] 2.16.8 [id number] 1940 Unknown [id number] 2.16.8 [id number] 1940 Unknown [id number] 2.16.8 [id number] 1940 Unknown [id number] 2.16.8 [id number] 1940 Unknown [id number] 2.16.8 [id number] 1940 Unknown [id number] 2.16.84 [id number] 1940 Unknown [id number] 2.16.840 [id number] Unknown Social History Date Type Detail Facility Start: 01-15-2022 End: 03-04-2023 Tobacco smoking status Ex-smoker (finding) [facility] Sex Assigned At Male [facility] Social alcohol use Social alcohol use [facility] 250 DO Work Phone: Comment on above: quit 1978; Functional Status Date Assessment Result Facility 03-04-2023 Functional Status N/A [facility] 12-21-2022 Functional Status N/A [facility] 11-16-2022 Functional Status No [facility] 10-09-2022 Functional Status N/A [facility] Clinical Notes 11-22-2021 to 09-08-2023 Note [...] treatment plan. Patient left in stable condition [employer] Other 2023 Evaluation note* Encounter Date Diagnosis Assessment Notes Treatment Notes Treatment Clinical Notes Aug, Diarrhea (ICD-10 - R19.7) Patient reports that he has had some improvement and will continue Levsin as directed, fiber, and probiotic without change RTO 3 months [employer] Other 10-31-2023 Evaluation note* Encounter Date Diagnosis Assessment Notes Treatment Notes Treatment Clinical Notes Jun, Diarrhea (ICD-10 - R19.7) This patient states his diarrhea started about 4 months ago. At it's worst, he was only going once, but he had urgency & was a large amount. The frequency & severity have improved somewhat. He reported to [facility] ER last month. Lab & stool studies [...] colonoscopy. Return visit here in one month [employer] Other 10-01-2023 History general Narrative - Reported* Type Description Date Medical History Hypercholesteremia Surgical History tonsillectomy and adenoidectomy Surgical History lipoma Surgical History colonoscopy Surgical History cataract removal 06/2023 Hospitalization History see above Hospitalization History [facility] for diarrhea 05/2023 [employer] Other 10-01-2023 History general Narrative - Reported* Type Description Date Medical History Hypercholesteremia Medical History diarrhea Surgical History tonsillectomy and adenoidectomy Surgical History lipoma Surgical History colonoscopy Surgical History cataract removal 06/2023 Hospitalization History see above Hospitalization History [facility] for diarrhea 05/2023 [employer] Other 06-26-2023 Hospital Discharge instructions Patient Education [...] Follow these instructions at home: Medicines Take uizt-zug-usxifmg and prescription medicines only as told by [...] or the blood stops without treatment. Take nptd-iae-mnnecdn and prescription medicines only as told by your health care provider. Drink enough fluid to keep your urine pale yellow. This information is not intended to replace advice given to you by your health care provider. Make sure you discuss any questions you have with your health care provider. Document Revised: 04/26/2021 Document Reviewed: 04/26/2021 [employer] Patient Education 2022 [employer]. Follow Up Care 12/21/2022 09:24:19 With:GO POTTS, Chrissie Bradley, URL Address: [address] [place] [address]- When:Within 1 Year(s) [facility] [place] [id number] Hospital Discharge instructions Patient Education 12/21/2022 09:11:46 [...] Follow these instructions at home: Medicines Take buyq-qhz-xmdwykw and prescription medicines only as told by [...] or the blood stops without treatment. Take erdp-fgr-zngltyx and prescription medicines only as told by your health care provider. Drink enough fluid to keep your urine clear or pale yellow. This information is not intended to replace advice given to you by your health care provider. Make sure you discuss any questions you have with your health care provider. Document Released: 08/26/2006 Document Revised: 01/20/2020 Document Reviewed: 09/28/2017 [employer] Patient Education 2020 [employer]. Follow Up Care 11/29/2022 14:24:46 With:GO POTTS, Chrissie Bradley, URL Address: [facility] [place] [id number]- When:02/20/2023 [facility] [place] 04-11-2023 Evaluation note* Encounter Date Diagnosis [...] understanding and is agreeable with treatment plan. [employer] Other 03-23-2023 Evaluation + Plan noteExtracted from: Title:SAFIA post op Author:Meek Avendano MD Date:11/29/22 Plan Transfer/Discharge: Transfer/Discharge Discharge when meets criteria ( From PACU to Ambulatory Surgery Unit, and To home ). Extracted from: Title:SAFIA GA Author:Meek Avendano MD Date:3/23/23 Plan [employer] [employer] (ASA) physical status classification: Class II. Anesthetic Preoperative Plan: Anesthesia General. Future Appointments Appointment Date:12/21/2022 09:00:00 AM Scheduled Provider:Chrissie SOTELO MD Location:[facility] Appointment Type:URO Office Visit [facility]03-23-2023 Hospital Discharge instructions Patient Education 11/29/2022 10:49:22 Post Op Patient Instructions - FT (Custom) (Custom) Follow Up Care 10/30/2022 08:14:31 With:CHACHA MULLINS Address: [address] [place] [address] Business (1) When: Unknown Comments:Call for followup appointment with Mindi Mullins PA-C or me within the next 2-3 weeks. Should you haveproblems prior to that visit, please let us know.No shower for two days. Keep scrotal support and ice intermittently for discomfort.Have a great day! [facility]03-15-2023 Note [id number]:127[facility] 10-09-2022 Hospital Discharge instructions Patient Education 10/09/2022 [...] urethra. Follow these instructions at home: Take oqyu-zxz-rtknjlv and prescription medicines only as told by [...] 08/26/2006 Document Revised: 07/21/2019 Document Reviewed: 09/30/2017 [employer] Patient Education 2020 Um[employer]. Follow Up Care 10/05/2022 09:45:41 With:GO POTTS, Chrissie Bradley, URL Address: [email or web address] [place] [address]- When: Unknown [facility] [place] [id number] Hospital Discharge instructions Patient Education 01/15/2022 14:02:51 [...] Follow these instructions at home: Medicines Take wiml-oom-wplstwp and prescription medicines only as told by [...] or the blood stops without treatment. Take uksw-gtl-ouelems and prescription medicines only as told by your health care provider. Drink enough fluid to keep your urine clear or pale yellow. This information is not intended to replace advice given to you by your health care provider. Make sure you discuss any questions you have with your health care provider. Document Released: 08/26/2006 Document Revised: 01/20/2020 Document Reviewed: 09/28/2017 [employer] Patient Education 2020 [employer]. Follow Up Care 01/03/2022 11:13:58 With:Mark Torres MD, Chino Leggett, URO Address: [facility] [address] , [place] [address]- When:01/15/2023 [facility] [id number] NotePROCEDURE: XR SHOULDER LT 2V or > COMPARISON: None. HISTORY: Pain of left shoulder joint FINDINGS: BONES:No acute fracture or dislocation. Moderate acromioclavicular and glenohumeral joint osteoarthropathy with joint space narrowing marginal osteophyte formation. Subchondral cystic change of the glenoid. SOFT TISSUES:Negative. No visible soft tissue swelling. EFFUSION:None visible. OTHER: Negative. IMPRESSION: Moderate osteoarthritis Electronically authenticated by: AQUILES SPAIN Date: 2021-[facility]-22 [facility]29[facility] Future App[facility]ments Appointment Date:01/21/2023 10:30:00 AM Scheduled Provider:Chino Flores Jr., MD Location:[facility] Appointment Type:URO Office Visit Diagnostic Tests Pending * Urine Cytology ([facility]) 01/15/22 [facility] Evaluation + Plan note Future Appointments Appointment Date:01/21/2023 10:30:00 AM Scheduled Provider:Chino Flores Jr., MD Location:[facility] Appointment Type:URO Office Visit [facility] Evaluation + Plan note Future Appointments Appointment Date:11/29/2022 10:00:00 AM Scheduled Provider: Location:[facility] Appointment Type:Surgery FT Appointment Date:01/21/2023 10:30:00 AM Scheduled Provider:Chino Flores Jr., MD Location:[facility] Future Appointments Appointment Date:03/04/2023 08:30:00 AM Scheduled Provider:Chrissie SOTELO MD Location[facility] Appointment Type:URO Office Visit [facility] Evaluation + Plan note Future Appointments Appointment Date:03/09/2024 08:00:00 AM Scheduled Provider:Chrissie SOTELO MD Location:[facility] Appointment Type:URO Office Visit [facility] [place] History general Narrative - Reported* Type Description Date Medical History Hypercholesteremia Surgical History tonsillectomy and adenoidectomy Surgical History lipoma Surgical History colonoscopy Hospitalization History see above [employer] Other Hospital course Narrative No data available for this section [facility] Hospital Discharge instructions No data available for this section [facility] No data available for this section [facility] Summary Purpose Family History No Family History [...] years the last of which was in [place] 2 and half years ago which was [...] I will retrieve the stress test from [facility]. Patient is considered low risk for the [...] Personnel Name: Antoni Cho DO Address: Address: [address] [place] [address] Personnel Name: Antoni Cho DO Address: Address: [address] [place] [address] Personnel Name: Antoni Cho DO Address: Address: [address] [place] [address] Personnel Name: Antoni Cho DO Address: Address: [address] [place] [address] Personnel Name: Antoni Cho DO Address: Address: [address] [place] [address] (unrecognized sect ion and content) No Status Records FoundNo Status Records FoundNo Status Records FoundNo Status Records FoundNo Status Records Found INFORMATION SOURCE (unrecogn ized section and content) DATE CREATED AUTHOR 10/18/[address] [facility] DATE CREATED AUTHOR AUTHOR'S ORGANIZ ATION 11/22/2022 [facility] [employer] [facility] DATE CREATED AUTHOR AUTHOR'S ORGANIZ ATION 12/16/2022 [facility] DATE CREATED AUTHOR AUTHOR'S ORGANIZ ATION 03/05/2023 [facility] DATE CREATED AUTHOR AUTHOR'S ORGANIZ ATION 10/02/2023 [facility] EPIC REASON FOR VISIT (unrecogniz [...] BE BASED ON THE PRIMARY CLINICAL RECORDS. [facility]. provides no warranty or guarantee of the accuracy or completeness of information in this document.
--- NOTE | 2023-10-08 10:21 | MR_ITS ---
[facility] [place] [id number] Patient Name: ALICIA DE LEON MRN: [id number] date: 1940 Sex: M Assigned Patient Location: MRI Current Patient Location: MRI Accession/Order Number: [id number] Exam Date: 10/08/2023 10:40 Report Date: 10/08/2023 13:25 At the request of: SHAIKH LUIS ALBERTO Procedure: MR head/brain wo/w con Exam: MR scan of the brain with and without contrast. TECHNIQUE: Sagittal T1, axial FLAIR, DARYL T2, diffusion imaging without contrast and postcontrast sagittal, axial, and coronal T1-weighted images performed. COMPARISON: None. Contrast: 15 mL Dotarem. HISTORY: Temporal headache. FINDINGS: Punctate restricted diffusion left precentral gyrus without reduced ADC values. Punctate ill-defined increased T2 FLAIR signal corresponding to the area of restricted diffusion. Minimal increased T2 signal in the posterior temporal occipital periventricular white matter. No evidence for restricted diffusion or abnormal enhancement. Increased T2 signal left anterior temporal lobe white matter without restricted diffusion or abnormal enhancement. The ventricles, sulci, and basilar cisterns are normal. The cerebral hemispheres, brainstem, and cerebellar hemispheres are otherwise normal. Good flow is seen within the vertebrobasilar and the carotid circulation as well as the sagittal sinus. The orbital apices and infratemporal fossa are normal. The craniocervical junction is normal. Bilateral maxillary sinus mucosal thickening. MR/MR head/brain wo/w con IMPRESSION: 1. Solitary focus restricted diffusion without reduced ADC value left precentral gyrus. This likely represents subacute to chronic punctate infarct with shine through. 2. Probable remote ischemic change left anterior temporal subcortical white matter best seen axial T2 image 10. 3. The examination of the brain is otherwise normal. Electronically authenticated by: Carrillo TOWNSEND Date: 10/08/2023 13:25
[2023-10-08 11:25] LABS: Estimated GFR (African America >60 (>=60); Estimated GFR (Non-African Ame 59 (>=60)
== END 2023-10-08 10:17 | disposition home or self-care (01) ==
PROVIDERS: PCP Internal Medicine; Visit Provider Internal Medicine
DX: G44.52 New daily persistent headache (NDPH) (principal)
CPT/HCPCS: 36415; 70553; 82565; A9575

== ENCOUNTER 2023-10-17 07:58 | Outpatient (OUT) | payer MEDICARE, OTHER, SELFPAY ==
--- NOTE | 2023-10-17 08:01 | US_ITS ---
[address] [address] Patient Name: ALICIA DE LEON MRN: [id number] date: 1940 Sex: M Assigned Patient Location: US Current Patient Location: US Accession/Order Number: [id number] Exam Date: 10/17/2023 08:02 Report Date: 10/17/2023 10:15 At the request of: SHAIKH LUIS ALBERTO Procedure: US carotid duplex BI US carotid duplex BI, 10/17/2023 8:02 AM EST INDICATION:History of stroke COMPARISON: No prior carotid ultrasound available for comparison at the time of this dictation. MRI of the brain 10/08/2023 TECHNIQUE: Duplex Doppler ultrasound evaluation of the carotid systems including both vertebral arteries was performed. FINDINGS: Mild diffuse intimal thickening without significant luminal narrowing. The following velocities were obtained in the right carotid system: ICA peak systolic velocity = 93 cm/sec CCA peak systolic velocity = 103 cm/sec ICA/CCA ratio is 1.1 The following velocities were obtained in the left carotid system: ICA peak systolic velocity = 83 cm/sec CCA peak systolic velocity = 111 cm/sec ICA/CCA ratio is 1.1 Flow within the vertebral arteries is antegrade. US/US carotid duplex BI IMPRESSION: 1. No hemodynamically significant stenosis in either carotid system. 2. Antegrade flow within both vertebral arteries. Electronically authenticated by: DAMASO BANUELOS Date: 10/17/2023 10:15
--- OUTSIDE RECORDS SUMMARY | 2023-10-17 08:03 | XMS_ITS | CCD ---
Author Name Unknown Address [address] [place] [address] Organization [facility] Care Team Providers Care Razor Sharpener Name Role Phone Antoni Cho Primary Care Physician [phone] ASHLEIGH, DR CHRISSIE Bradley Admitting Unavailable ASHLEIGH, DR CHRISSIE Bradley Attending Unavailable HOUSE, DR CARRILLO Primary Care Unavailable ELMO, DR CHRISSIE Bradley Consulting Unavailable [facility], [place] Consulting Unavailable [place], DR ANTONI Acevesitting Unavailable [place], DR CARRILLO Attending Unavailable [place], DR CARRILLO Primary Care Unavailable ELAND, DR AQUILES Lee Consulting Unavailable [place], DR CARRILLO Consulting Unavailable [place], DR CARRILLO Admitting Unavailable [place], DR CARRILLO Attending Unavailable [place], DR CARRILLO Primary Care Unavailable [place], DR CARRILLO Consulting Unavailable NARDINI, KINA Consulting Unavailable Norlina, Antoni Bradley Unavailable Unavailable Unavailable Deejay, Dr. Antoni Howell Primary Care Unava ilable Deejay, Dr. Antoni Howell Primary Care Unava ilTaryn Siddiqi Referring Unavailable Taryn Real Attending Unavailable Jeannie Mclean Unavailable Chrissie SOTELO Attending Unavailable COOK, Chrissie Bradley Attending Unavailable COOK, Chrissie P Referring Unavailable COOK, Chrissie P Attending Unavailable COOK, Chrissie P Admitting Unavailable COOK, Chrissie P Attending Unavailable COOK, Chrissie P Admitting Unavailable COOK, Chrissie P Referring Unavailable Sam AHMADI Attending Unavailable COOK, Chrissie P Attending Unavailable COOK, Chrissie P Attending Unavailable Jama King Unavailable SHAIKH POOLE Attending Unavailable SHAIKH POOLE Attending Unavailable Shaikh Poole MD Primary Care Provider SHAIKH POOLE Referring Unavailable SHAIKH POOLE Primary Care Unavailable Allergies Allergy Classification Reported Allergen(s) Allergy Type Date of Onset Reaction(s) Facility (1 source) No Known Medication Allergies; Translations: [No Known Medication Allergies] Propensity to adverse reactions (disorder) [facility] Repository Medications Current Medications Medication Drug Class(es) Dates Sig (Normalized) Sig (Original) acetaminophen 325 mg / HYDROcodone bitartrate 5 mg oral tablet (1 source) Opioid Agonist Start: 3 End: 3 acetaminophen-hydroco done 325 mg-5 mg oral tablet 1 tab(s), Oral, q4hr Pain for 2 day(s), 7 tab(s), Refill(s) 0, [facility], 170, cm, 11/16/22 11:51:00 EST, Height/Length Dosing, 85, kg, 11/16/22 11:51:00 EST, Weight Dosing Start Date: 11/29/22 Stop Date: 12/01/22 Status: Ordered [id number] 60 actuat albuterol 0.09 mg/actuat metered dose [...] day(s), # 10 cap(s), Refills(s) 0, [facility]acy: [id number], 170, cm, 11/16/22 11:51:00 EST, Height/Length Dosing, 85, kg, 11/16/22 11:51:00 EST, Weight Dosing Start Date: 11/29/22 Stop Date: 12/04/22 Status: Ordered hyoscyamine sulfate 0.125 mg oral tablet (4 sources) Start: 3 take 1 tablet by [...] Refills: 0 Ordered: 21-Nov-2022 DO Active Omeprazole (9 sources) Proton Pump Inhibitor Start: 11-29-2022 omeprazo le Refills(s) 0, Indigestion Start Date: 11/29/22 Status: Ordered take 1 capsule by mouth every ot her day omeprazole (PriLOSEC) 20 mg capsule Take 1 capsule (20 mg total) by mouth every other day. 0 Active Omeprazole Activ e Completed/Discontinued Medications Medication Drug Class(es) Dates Sig (Normalized) Sig (Original) ciprofloxacin 500 mg oral tablet (2 sources) Quinolone Antimicrobial Start: 01-02-2022 Cipro 500 mg Tab 500 mg = 1 tab(s), Oral, As Directed, Take one tab the day before procedure, then take 1 tab after the procedure., # 2 tab(s), Refills(s) 0, Pharmacy: [facility], 170, cm, 01/02/22 9:19:00 EDT, Height/Length [...] sources) Obstructive sleep apnea syndrome 11-16-2022 Chronic Residual codes; unclassified (1 source) Pain, unspecified; Translations: [Pain, unspecified] Onset: 02-04-202 4 Episodic Screening and history of mental health and substance abuse codes (1 source) Ex-smoker; Translations: [Personal history of tobacco use] Episodic Comment on above: quit 1978; Unclassified (5 sources) Asymptomatic microscopic hematuria 10-09-2022 Past or Other Problems Problem Classification Problem Date Documented Da te Episodic/Chronic Abdominal pain (4 sources) Unspecified abdominal pain; Translations: [UNSPECIFIED ABDOMINAL PAIN] Onset: 11-22-2021 Episodic Other non-traumatic joint disorders (1 source) Pain in left shoulder; Translations: [PAIN IN LEFT SHOULDER] Onset: 11-23-2021 Episodic Unclassified (1 source) Acute cough R05.1 Results Test Name Value Interpretation Reference Range Facility COVID + FLU Quick Testingon 09-08-2023 SARS-CoV-2 (COVID-19) RNA RANDALL+probe Ql (Unsp spec) Negative [employer] [facility] [employer] Other COVID + FLU Quick Testing Positive [facility] Other COVID + FLU Quick Testing Negative [facility] Other Ambulatory Visit Summaryon 0 03-04-2023 Ambulatory Visit Summary STEVE DE LEON :1940 Visit Date:03/04/2023 Ambulatory Visit Instructions Your Diagnosis Lipoma Spermatic cord cyst Asymptomatic microscopic hematuria 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 Take rtea-dhb-bonvjql and prescription medicines only as told by [...] the blood stops without treatment. ? Take gdcr-prz-tcuxolr and prescription medicines only as told by your health care provider. ? Drink enough fluid to keep your urine pale yellow. This information is not intended to replace advice given to you by your health care provider. Make sure you discuss any questions you have with your health care provider. Document Revised: 04/26/2021 Document Reviewed: 04/26/2021 [employer] Patient Education ? 2022 [employer]. [facility] Urology Office/Clinic Noteon 03-04-2023 Urology Office/Clinic [...] that plan Follow-up With When Contact Information ASHLEIGH POTTS, Chrissie Bradley, URL In [address] year [address] [place] [id number]- Additional Instructions: Patient Education Hematuria, Adult I, [...] Daily, 11/16/2022 (more content not included)... Normal [facility] Comment on above: Result Comment: Elec tronically Signed By: Chrissie SOTELO MD\.br\Date and Time Signed: 03/04/23 09:33 EDT\.br\Electronically Co-Signed By: Sofiya Gaytan.br\Date and Time Co-Signed: 03/04/23 09:32 EDT [place] 12-24-2022 Screens [id number]#1.0 0CD:127 Normal [facility] Patient Educationon 12-22-19 Patient Education Urology Hematuria, [...] these instructions at home: Medicines ? Take lqsn-bhz-uysrxav and prescription medicines only as told by [...] the blood stops without treatment. ? Take jgzs-jbn-dmeoagd and prescription medicines only as told by your health care provider. ? Drink enough fluid to keep your urine clear or pale yellow. This information is not intended to replace advice given to you by your health care provider. Make sure you discuss any questions you have with your health care provider. Document Released: 08/26/2006 Document Revised: 01/20/2020 Document Reviewed: 09/28/2017 [employer] Patient Education ? 2019 [employer] Normal [facility] Urology Office/Clinic Noteon 12-21-2022 Urology Office/Clinic Note [...] that visit Follow-up With When Contact Information ASHLEIGH POTTS, Chrissie Bradley, AARCELIS In 2 months 02/20/[address] [address]- Additional Instructions: Patient Education Hematuria, Adult I, Sue Black , personally scribed for Dr. Sotelo on 12/21/2022 09:22:44. . Documentation recorded by the Sue lyons MA, accurately reflects the services(s) I performed [...] Instructions omeprazole Allergie (more content not included)... [facility] Comment on above: Result Comment: Elec tronically Signed By: Chrissie SOTELO MD\.br\Date and Time Signed: 12/21/22 09:32 EDT\.br\Electronically Co-Signed By: Sue Black MA\.br\Date and Time Co-Signed: 12/21/22 09:22 EDT Postoperative Documentson Postoperative Documents [id number]#1.0 0CD:127 [facility] Coding Summary.on 2022 Coding Summary. CD:[id number] Ww +PGhlYWQ+HR2YPLFgM79dm QDjdC9gK3MXSDfOWbyfGJJ EBDlGCuFjkiNuPJ2moTQrK XJu IC8+FL2oIMCyHmcaaFLul1 D3kDE7U85vev5yDIunfIQ1 IRDfYgJehjdbh7qdpPm5UX cuNmluOyBt PGWyzH63EON2fV78Su35wG YdhGZok4vgbCo4MsFbNOUz MIZ1kScwICtzz6GzCFEeP6 8jzFLdg6E7 WBNghXcneXYbWxUskUX4xV 5mJDtdxttoi9pmyqjiWtx0 qg33zGDzc7C0pPL6J1Nhoy O7BZZgnPRh UcuudJSShL0zweead1aaeo waPoMcYPDfEJb9HLc6BAVz nLsbCwWeRN65NLB0GKVklh VwW2GkCCRu gMrcFxU7n0V5Or0FD4GHIl ioA8CLPUZOHIdfxSQ+PC90 gi11I1YgFcxqSvy7AILbUO A1iGL4wU7n DILjNFwjk2X5xDZ1E0Tewl Qvid3ha9hpPGKnCDfuB35w sJAwj3A6EKCkzQU5YGQhxT qmJmMzjW38 Oyc+MBMwnYrma4BnQkuxl3 tur8tktLc4RvblEEFyqiSk kEaiHJF1y1DdQr8uUXWejF R2iLT2eU3e MnStLvI7SWobA052FgAioG HdMzepI01lP7DjvFJ+PHRy Fks1WKMhtBcoCV9cL7ZzIK RpbmctbGVm aJxaAO2aAECeuoqmLFVyyM 0pESMtA7v1IjCgVrE9AWxc P9XuLJImgcygMx97hQ8xFp NyPfS4UMtp U8PaslT0STRegBZlMQqyOJ N8R47ym6G2IFQvZCWcEYP6 zSZ5tJ8vgXtifwkncCWjvS sgdmVydGlj XVxmENxtU772FQCuoThpMl NvZGluZyBEYXRlOiAgMDMv MjkvMjAyMzwvdGQ+PHRkIH H0kJxsQUPp rAOmVLiwYw0hmWguuLalPE 9cANXnatilXFRevY8lVVEq mKJsaWyfUK5jFZIpznaco6 68VhCnQVP5 XNFhhGItT0YqaE8hQyVxOK IzAVSmB6QwpYWoWYiaU456 DYuoZzE5AAVqatTpD9LyPS FsaWduOiB0 u2H8Ab6Dy8KglexcN1IjgU MjZqRtHwzkYEm1J0QxUdyb dHI+VN67ZUCrPB74FIh9SL J5hZzpJVbu XCSbN1NsdF7mSyOaOTQcDI RkOyc+PHRhYmxlIHdpZHRo EYtoAOGvDpHnwDquHS6uIu 9yZGVyLWNv rUueqFFzXmGzy1nwEFYyMC muIL6zcDlvK7DseAA4XJBg n2c3Qb96E82dF4RcrYL+PG GbfFW2vEZ2 uB5eSrDkFwZ5CPmkT510Bo MimVTuViisb5qoo9zslNj1 GfB7LAZbpeCruFnvSCM6n2 GuEl32K41r IHdpZHRoPSIxNSUiIHZhbG xhxh0umL7dSf3+PGNvbCB3 jEW6pE1iZtGaOiD5UXdbW4 49InRvcCIv Qxukq4vib1monCa0RxNsRI FpqlQnnKruAHL8u8ItWc54 H2RcrSpzc4UhTdn6zh33jM Nzr2Y3tZM9 H1SlTRDwoqofyHCroOmcIP 7sHPVcvtvpCDWdcG9vWNLx C6r2WpLgQcU5QNvxU1Rcxt G8IXKtjPQs TMNclZRMbK5zsumes6whnq foPmJcSVVcBSu6ELs5DGTy yWiyWsNmCSE1IgT1AZV1rI PgsI9pkJux dllcaH9dIus+WUG3pIMhhE TKXE7pOhfzjXX+PHRkIHN0 dHtaIZpgHPWzpE8xWNVyH8 n9CtBuYnF8 CYetQ8IfabT5ILDedWAuRU YdeCBGkA3uhjtif5dkisvh RhCtZHOzDQb2TZe0XDZrdX duOiBsZWZ0 RvN8TWM4pKXnnD2abOblqo zyaY4eCfx+QmlydGggRGF0 WRd2O8UbTxn9RHWdkIafNO 0ncGFkZGlu Ll3hoYhstQmvBO7uZDSpcj wea270WiGsb4gjWNTgdQDi HZctWFX6B24kh6R6SDDbDS ZdEEM5eFI8 wN8xmQzotgljvHNriNjkyf PivLgyPNigOJlgH155VTYm tWbuToHoDWg4G7JrFrx8NZ RtnXvpOQ0f sCByQZorWv3ifBamqIysVH 8tPIPqqihdg695NqXpl6nn GDZkuYLwGOfpIPU0Q24ih1 V5YVHdAVUc ZYX5dPC3qC7nmPhnxrxqpG VmdDsgdmVydGljYWwtYWxp N890YZNzpTyxWwFjsPq9C6 GzYrs1KAGz uHpoDZ4mxTYyCVawBl4kmP mkmHaiBB6dNNJtaqxcv703 JrOry4fsUISknGGwEIinAB J6E14ww8Y7 UDUqXCUrZSI5fRL5uE4aeE lnbjogbGVmdDsgdmVydGlj JJviPNyjB000AJLunKrtFo BhdGllbnQg DXnjXRo5Y6TvPowhkAQ+PC 50NUQkFP20lWTfzDSnk1ud fVa9EdRaWAHmCIM9uFitTL lvy5XjNRMu E25zdTBlb8N5URJboQxorN RnZyLfoXO5zX5kYKjlllyu p7yzwkzbJtblz2cvqd33jW 23Z01qWJtk ZHRoPSIzMCUiIHZhbGlnbj 6prQ3uPb1+KKAwbFC8eLF5 jP6tACXcIuJ7INliA525Ne RvcCIvPjxj t9jac9invZw6UrB3YJWqwx JmkEhrDKN6m6YvVc92Y65l IHdpZHRoPSIyMCUiIHZhbG eshu0eiV9x Ii8+IMKyqLV5aTR9qN0xGs LjGyH9MKmoX233JeAasSBp SbikB91eL4NcrKU+PHRyPj l8XWLphAhp EP7rtJWpEJccEw0jCGH1Be KcNvItHZgeR3DeNATrjelc bruviFB8TUZlWIHstT26Rs 9udDogMTBw jPSCwM9kxfpov6xbpnanXv OtVTUcKOm2WPy7RDCztXcy UxUiUBC8HnS9UEE6tLMekR 1hbGlnbjog oB0mQ4NvOUTlvfspRx47iQ 8kLgIgPlQ0PSqdZvr+RFVE IWQsPWXHTACAAP4gMxgbhQ Q+PHRkIHN0 dGclQLewEOJqhV2bZCNxS2 t4VaAhJuB6FIppQ8FbFKTx gaupYm34yQ6nPdCvPvH8WT hpF0VwppE7 YXQabLUqLBnlETT9H24oh4 B7UTIgSJJmPEW8vJI1kE5d bGlnbjogbGVmdDsgdmVydG ljYWwtYWxp N851HXPzsKopYzQxSsY0Yh K5EDP2P8ZsDce6MIRvhNim HG6suJKmZCmtIh0uoGewcM mbSK4mCCZu ybhfJDOeyC2sMWIqeCTtaX ijHO7uXDPyzqxxb925IlWh TUP1FGHwbOWxS7CbyX3yBc AjMDAwMDAw U0TveGXfNIkpV238IGukBn Z2RONptlPsB4UySPRuiTkp NfA7v9J8Xi50PfESGXUzmj wvdGQ+PHRk FPX1bUdyXRvpYJNibZ6nBR AzI7p1KmUeYfY0OBmuF3Ys RYYqoyikBu23dR9qDbRuTm J5LYaeO9Ot dgV8QGNkdSRtTNdlMBY6J6 2wc7J0DQRgUCKfSCK0aFD5 eY0jcWhrgllgkKLkrEcgzu VydGljYWwt MMebJ301SDCycAoeRf5ezH U3J9QmRmu1ASJtnZmcQK8w xDYhNCgyFq2btHureXwnAD 4wNTBpbjtw XZJjsN9lZFWsiIZxpYtcNQ 9mCIYqlegnm684QiIuMST6 UZWvuLHxF5BsdL6eWbDsJK LzSBMbW1Rz aGAsWCxbI874DOwmCkK2HL CtadPgB2PqSKOcyUolZhT7 d5P3Ki9IvVE8tXU4r5F4U2 NhbWUgRGF5 YYL1vixzojm2Z2FyTdoypK I+GP92NEGfFU36qYQnoSJb x3ldoBw9HjSjTBDqZXJ4jL twVCtlh0Vx UDXyS29baFMry3R9DGLnkT mbqXNyQpWkwWJ8vF8oXKow bdfjm2gzrtfwHxpzf8mtwl 30tW81A38r IHdpZHRoPSIzMCUiIHZhbG daoc3ffV1bZm0+PGNvbCB3 yLE0fV2rMsIsXdA6IDeiA1 49InRvcCIv Dwmsk9gxi9pupEe6ZmSlPF AbqfVrjJukCPP8c5IqIr58 B43hHJkrHXYgDSCsMIIcHI KojWadvi9k sD0qUg8+MI6ez1royr01gS 48dHI+WLWfXMK9aJqfRUus NMKqfF2oQAbbVvO1DIWoQc OgvI88cWKm VYvkKj6agZolhOxmAK9kHM Hatntej100PnYai5gwGBOu yIRzQLgoVQL4W67lh2X7BT MwMDAwMDA7 dLO1uF4qlUolfgawiWEpoJ tlmzJzdMouRDraLXruS515 IVVbaNklKiGbsCAbB0chrf CTZA8xIcvq dGQ+DRZxIHW0iNfiKOgiTD MinK4oBPZtW9j4KqZlFlK6 TOviR0VwkyS8HYHghCIpFL LtkDGWsV8o ajpdw1kmhpvqTiRqUBKmYK p1NAe3XGMegAllJlUxFFJ5 ZkO0ENC1fCBqpF8leLvagq mxfM7cBer+ RklOOjwvdGQ+FAEoBGW9pV fiQReuENAdgV1tQTLdE7d4 JeVdAdY4BMxsR3JgubP5QM JvbGQgMTBw uQPDiK3ubrsve2bymglgBx HzAVJvCBq6KAt6CHEgyLyf BvJxFVE5CgT2LDS2qTMzoU 1hbGlnbjog sP5aAos+TVJOOjwvdGQ+PH OjVXR8nTucCQlaXMGljL5v UNLlT4o2XrAnFlI3EQqtV9 BywiN9KQIv qYZkCRXubXALlL2cikvav4 cahovwAvCfNSNySSv9QAi7 WRSegBpiEcTkDHQ9KbC0KZ S4vIDgbC3k fOjbijqmsY1hXdn+UGF5ZX E5PN24ZV54H4RoDlqegPSb bGU+PHRhYmxlIHdpZHRoPS cxMDAlJyBz dMzdXZ1i (more content not included)... Normal [facility] Consultation Noteon 12-04-19 Consultation Note [id number]#1.0 0CD:127 Normal [facility] Consultation Note [id number]#1.0 0CD:127 [facility] IntraOperative Documentson 0 12-03-2022 IntraOperative Documents [id number]#1. 00CD:127 [facility] Consent for Anesthesiaon Consent for Anesthesia [id number]#1. 00CD:127 Normal [facility] Consent for Procedure/Surger yon 11-30-2022 Consent for Procedure/Surgery [id number]#1. 00CD:127 [facility] Discharge Instructionson Discharge Instructions [id number]#1. 00CD:127 Normal [facility] IntraOperative Documentson 0 11-30-2022 IntraOperative Documents [id number]#1. 00CD:127 Normal [facility] IntraOperative Documents [id number]#1. 00CD:127 [facility] Main OR Intraoperative Recor don 11-30-2022 Main OR Intraoperative Record IntraOp Document Type FT Summary Primary Physician: Chrissie SOTELO MD Finalized Date/Time: 11/30/22 12:33:04 Pt. Name: KINGRICHIESTEVE./Sex: 1940 Male Med Rec #: [id number] Physician: Chrissie SOTELO MD Financial #: [id number] Pt. Type: A Room/Bed: [place] [address] Admit/Disch: 11/29/22 08:02:54 - 11/29/22 12:30:00 Institution: Case Times FT Entry 1 Patient Times In Room 11/29/22 09:49:00 Out Room 11/29/22 10:45:00 Procedure Times Start 11/29/22 10:04:00 Stop 11/29/22 10:40:00 Anesthesia Times Start 11/29/22 09:49:00 Stop 11/29/22 10:45:00 Last Modified By: Michel HER, Aruna Armendariz 11/29/22 10:45:04 General Comments: 11/30/22 chart opened for charge review per Pili Bernstein RN. Case Attendance FT Entry 1 Entry 2 Entry 3 Case Attendee Becky SANABRIA, Av SOTELO MD, Cornelius Maldonado Role Performed ELLY Surgeon - Primary DIVING FISHER/SA Time In 11/29/22 09:49:00 11/29/22 09:49:00 11/29/22 09:49:00 Time Out 11/29/22 10:45:00 11/29/22 10:45:00 11/29/22 10:45:00 Procedure SCROTAL CYST SCROTAL CYST SCROTAL CYST EXCISION(Bilateral) EXCISION(Bilateral) EXCISION(Bilateral) Comments DR AVENDANO SUPERVISING Last Modified By: Michel HER, Aruna Pearson RN, Aruna Pearson RN, Aruna Armendariz 11/29/22 10:45:05 11/29/22 10:45:05 11/29/22 10:45:05 Entry 4 Entry 5 Case Attendee Jewels MAYEN, Aarti Pearson RN, Aruna Armendariz Role Performed Scrub - Primary [employer] Consultant - Primary Time In 11/29/22 09:49:00 11/29/22 09:49:00 Time Out 11/29/22 10:45:00 11/29/22 10:45:00 Procedure SCROTAL CYST SCROTAL CYST EXCISION(Bilateral) EXCISION(Bilateral) Comments Last Modified By: Michel HER, Aruna Pearson RN, Aruna Armendariz 11/29/22 10:45:05 11/29/22 10:45:05 Perioperative Protocols FT [...] Time Out Av Pena CRNA, COOK MD, Nano Terrazas James W, Jewels MAYEN, Michel Bravo RN, Aruna Armendariz Time Out Complete 11/29/22 10:03:00 Outcomes Met? [...] Procedure Yes Primary Surgeon Chrissie SOTELO MD Start 11/29/22 10:04:00 Stop 11/29/22 10:40:00 Anesthesia Type [...] and tissue Entry 1 Skin Integrity Intact, [place], Warm, and Skin Abnormality No Dry Outcomes [...] of inju (more content not included)... Normal [facility] Preoperative Documentson Preoperative Documents [id number]#1. 00CD:127 Normal [facility] Preoperative Documents [id number]#1. 00CD:127 [facility] Consent for Treatmenton 11-08 Consent for Treatment [id number]#1.0 0CD:127 Normal [facility] H&P Updateon 11-29-2022 H&P Update [id number]#1. 00CD:127 Normal [facility] Inpatient Patient Summaryon 11-29-2022 Inpatient Patient Summary [place] [id number] [facility] Clinical Discharge Instructions PERSON INFORMATION Name: [facility] Admitting Physician: Chrissie SOTELO MD Attending Physician: Chrissie SOTELO MD PCP: Antoni Cho DO Discharge Diagnosis: Comment: PATIENT EDUCATION INFORMATION Instructions: Post Op Patient Instructions - FT (Custom) (Custom) Medication Leaflets: Follow up: With: Address: When: CHACHA MULLINS [address] [place] [address]. [place], [place] [id number] [facility] (1) Comments: Call for followup appointment with Mindi Mullins PA-C or me within the next 2-3 weeks. Should you have problems prior to that visit, please let us know. No shower for two days. Keep scrotal support and ice intermittently for discomfort. Have a great day! Type Location Start Finish [facility] URO Office Visit [facility] JULIAN Tay 01/21/2023 10:30 AM 01/21/2023 10:45 AM Confirmed MEDICATION LIST New Medications [id number], [address], [place] [id number], [phone] acetaminophen-hydrocod one (acetaminophen-hydroco done 325 mg-5 mg oral tablet) 1 Tablets By Mouth every 4 hours as needed Pain for 2 Days. Refills: 0. cephalexin (cephalexin 500 mg Cap) 1 Capsules By Mouth every 12 hours for 5 Days. Refills: 0. Medications to Continue with No Changes Other Medications multivitamin (Multi Vitamin+) omeprazole Comment: Normal [facility] Main OR PACU I Recordon 11-08 Main OR PACU I Record PACU Phase I Docum ent Type FT Summary Primary Physician: Chrissie SOTELO MD Finalized Date/Time: 11/29/22 11:34:56 Pt. Name: STEVE DE LEON /Sex: 1940 Male Med Rec #: [id number] Physician: Chrissie SOTELO MD Financial #: [id number] Pt. Type: A Room/Bed: [facility] Admit/Disch: 11/29/22 08:02:54 - Institution: Case Times [...] 11/29/22 11:34 Sharon Mosquera RN 11/29/22 11:34 Normal [facility] Main OR Preoperative Recordo n 11-29-2022 Main OR Preoperative Record PreOp Document Type FT Summary Primary Physician: Chrissie SOTELO MD Finalized Date/Time: 11/29/22 10:13:26 Pt. Name: STEVE DE LEON/Sex: 1940 Male Med Rec #: [id number] Physician: Chrissie SOTELO MD Financial #: [id number] Pt. Type: A Room/Bed: [facility]/ Admit/Disch: 11/29/22 08:02:54 - Institution: Case Times [...] By: Aruna Pearson RN 11/29/22 10:13 Normal [facility] Monitor Recordon 11-29-2022 Monitor Record [id number]#1.0 0CD:127 Normal [facility] Monitor Record [id number]#1.0 0CD:127 Normal [facility] Operative Reporton Operative Report Patient: STEVE DE LEON Age: 81 years Sex: Male : 1940 Associated Diagnoses: None Author: Chrissie SOTELO MD Postoperative Information Date/ Time: 11/29/2022 10:44:00 Postoperative Diagnosis: Scrotal masses ([id number] N50.89, Working, Medical). Performed by: Chrissie Sotelo MD. Findings: Procedure: Excision right scrotal masses x2 [...] it well and is transferred to the rmallory and then back to PACU in satisfactory condition, stable vital signs. Plan to be for discharge home with plans to follow-up in 2 to 3 weeks in the office. Prescription sent to the pharmacy for [place] and cephalexin. Described all this to the patient's son postoperatively and he is in agreement with the plan. Complications: None. Anesthesia type: General. Normal [facility] Comment on above: Result Comment: Elec tronically Signed By: Chrissie SOTELO MD\.br\Date and Time Signed: 11/29/22 10:50 EDT Outpatient Surgery Discharge Instructionon 11-29-2022 Outpatient Surgery Discharge Instruction [address] [address] Patient Discharge Instructions PERSON INFORMATION Name: STEVE [...] Follow up: With: Address: When: CHACHA MULLINS [address] [place], [place] [address]dg. [place] [id number] [facility] (1) Comments: Call for followup appointment with Mindi Mullins PA-C or me within the next 2-3 weeks. Should you have problems prior to that visit, please let us know. No shower for two days. Keep scrotal support and ice intermittently for discomfort. Have a great day! Type Location Start Finish State [facility] Office Visit [facility] JULIAN Tay 01/21/2023 10:30 AM 01/21/2023 10:45 AM Confirmed Pharmacy Information: You may receive a survey from [facility] asking you to rate your care experience. Your feedback is important and will help us understand what we do well and how we can improve the quality of care we provide to you, your loved ones and our community. It?s an honor to serve you. Thank you for choosing [facility] HERE ARE THE MEDICATION CHANGES THAT OCCURRED DURING YOUR HOSPITAL STAY New Medications [id number], [address], [place] [id number], [phone] acetaminophen-hydrocod one (acetaminophen-hydroco done 325 mg-5 mg oral tablet) 1 Tablets By Mouth every 4 hours as needed Pain for 2 Days. Refills: 0. cephalexin (cephalexin 500 mg Cap) 1 Capsules By Mouth every 12 hours for 5 Days. Refills: 0. Medications to Continue with No Changes Other Medications multivitamin (Multi Vitamin+) omeprazole PATIENT EDUCATION INFORMATION Instructions: Medication Leaflets: Normal [facility] Patient Education - Texton 0 11-29-2022 Patient Education - Text Normal [facility] Progress Note-Physicianon Progress Note-Physician Patient: STEVE DE LEON Age: 81 years Sex: Male : 1940 Associated Diagnoses: None Author: Lauryn POTTS, Meek López Postoperative Information Postoperative disposition: Postoperative disposition: To PACU. Optimetrix number: Optimetrix number [id number]. Anesthetic utilized: General. Physical Examination Vital Signs [...] Surgery Unit, and To home ). Normal [facility] Comment on above: Result Comment: Elec tronically [...] Problems Asymptomatic microscopic hematuria / SNOMED CT 6665673536 / Confirmed Benign localized prostatic hyperplasia with lower urinary tract symptoms (LUTS) / SNOMED CT 2198731620 / Confirmed BPH with obstruction/lower urinary tract symptoms / SNOMED CT 8305719019 / Confirmed Gross hematuria / SNOMED CT 118503271 / Confirmed BRITTANY (obstructive sleep apnea) / SNOMED CT 224066549 / Confirmed Renal cyst / SNOMED CT 7036639386 / Confirmed Scrotal mass / SNOMED CT 39472583 / Confirmed, Active Problems (7) Asymptomatic microscopic hematuria Benign localized prostatic hyperplasia with lower urinary tract symptoms (LUTS) BPH with obstruction/lower urinary tract symptoms Gross hematuria BRITTANY (obstructive sleep apnea) Renal cyst Scrotal mass Histories Social History Social & Psychosocial Habits Alcohol 11/16/2022 Use: Current Type: Beer Frequency: Daily Comment: 4-5 daily - 11/16/2022 09:36 - Anabelle Schultz RN 11/16/2022 Risk Assessment: High Risk Substance Abuse [...] in all extremities. Gastrointestinal: Soft, Non-tender. Plan [employer] [employer] (ASA) physical status classification: Class II. Anesthetic Preoperative Plan: Anesthesia General. Normal [facility] Comment on above: Result Comment: Elec tronically Signed By: Lauryn POTTS, Meek Ayers.br\Date and Time Signed: 11/29/22 08:44 EDT Coding Summary.on 11-27-2022 Coding Summary. [id number] Gh 0bWw+PGhlYWQ+HY0EBLPwJ 69nyPVvrE9uU1KPAYuRVwl sPYZESPrWEtVduoCqAN2qd XNjZXJu IC8+TL6qOYCqWmeraGKgv5 N0hWD0J60hgs1iFUvccTF9 LKVtHvLcbujed4sojPw3JK cuNmluOyBt UOMfpJ20FQX2gW61Ar55hZ PalPDey6orkSp9BeCwFZDp CCK3dNfzCHhjr5BhHFJsB0 0zmGWbw9I1 CLTgoJepnJVkTwXhzZT7vF 3gOTyhbkeku3fwldvjZnn7 ia52eONoo2N3dHZ6I0Insh S8AIEdtYCd EwiduICQsV5nsyekt9ytie jyOoMcIXQrVYr0NNl8IDFd lNteIcJhSQ52USM9DMXxmx SpS0PeQMEi tRefYxV5r9P3Gl0YD9QQTs tvZ2UGARBHQSrsxAZ+PC90 fh61K1FjKtcuTnp9YLXfUC R6hOF4oU9f RCRjASnpj0L3kQE6V5Sabr Hoqm7ar2yzIOMvUZceJ98h wXYmw3K1XNUafWB5UNQxlU vzHmEnvM02 Oyc+ASLwnBcxw3VmFkyxo4 dol9gkoTk5XcifKCAxyuVb jXfyXDL9x3ItCp3vCGBclR C4oAA5hN7n IuOmWlH5EVvuM173ReEwyY CwAjacE15hK2TucUE+PHRy Cza9JSMyuNgwMY8uY8YiEA RpbmctbGVm uVgiEL1fGQIoondqKNDxtA 2gHXCcP6l0KyTgZlI7HObi U3QhXRAffmixXx69kC8oOm CfSvE6ROpu G6AtykM2VTJovAFlLAbkCS I3U44vx0D7ZDIzSMFtRRZ9 vDW8zY7vuUbtwkiyqBIsfQ sgdmVydGlj HWhvOUfaR428FJVicCyfKs NvZGluZyBEYXRlOiAgMDMv MjEvMjAyMzwvdGQ+PHRkIH H6mEbnNIFd xEVwJWdsBe4zkHvnaOocUY 6fJJEnqyunXIFabI4iGQFw eBTtcAqeEG5aRGIzmkohp0 20IrNeACU5 FDEmbYSkY7NulU4kAhNiCU TnNXDkY9VwhPCvCBbeW298 KXzhAbH4FNZspkGjW6LmUG FsaWduOiB0 m8R5Nq2Rw2FamaakC4OwwC VaLjFrYkvdMXr7C7YzJnfn dHI+GP23XZWuWO15JUw9YC L6yCwvIYzf RSXtC9KtpW7aBqAtROXyNT RkOyc+PHRhYmxlIHdpZHRo BOueKKCvGfUlhTjpHM2rRs 9yZGVyLWNv vImshFGjYgOfd8geUPEwPB beEP8hcTmfI1BgrCE6OFGw e4z1Nl63G13bU6JjiZW+PG BsnXU5yDY0 rK9wJxQfWoO3DCmhV851Sr UxzDBzKstoy3oop6pwaVc3 SsY5XBBfucWcdMisLRW9c2 KiKt78F53t IHdpZHRoPSIxNSUiIHZhbG eddk2waK3jGd0+PGNvbCB3 bOV5iY1qPmSeYmU1VEdgW3 49InRvcCIv Svrbf9myl1macNj7SyMiZA AealEolGnnEYA3t8CwHq26 V3NufBjfv9WsJke8lm02pR Oov8Z0hGX0 A2XhFEQrsjiqcVKfbCilEP 7mILSrhysvPYGddZ5lCUKm Z6y0ZpWwEaV2GAriU0Kygy S7SXHoyAQm UIQteHTBsS9xtojcs1thny vfLlXvOSMrQSs3RNu5KSSx vDvyRmFmVML4OtV8YFB6qU OjgR7kaOuc yxiyqB0kIlh+JOA1tHVavU DLGP4tIhrvbRV+PHRkIHN0 jTtcKExzUZSrdB4yDGTpW1 b2NwRmKyB5 USmmX0KajwK9ASJlyPKoAB YceJAVbQ5esytkh6oegmxl GyLxVAToTJg6DVn2YWUofH duOiBsZWZ0 FnJ7JSF0rHMmfM3rgElags gsoB6hVmz+QmlydGggRGF0 LIv3N6WjYuh7GFZnkRvxPW 0ncGFkZGlu Wj5ugHlnfAbkCM7vIPSuxt wke772FrYle0wxQKHypZJn LZlvGNX9Z09ke1J3MRGwZM IyYUV3aFI9 yO4fhGqawpiygUSqrSnxne CjxNklYMeqLIfgR883UXRw xYpaFpIiFCz1V8HyUhh7WH FfqIunHN8h lPLqTBokQe6prHzwjVxmXR 1xLWLliospp790GaQfx8hd ZQDhvFBzCGkaEXD4V01dn6 U4UZTlTMAe ELK9tKJ4oX8djZbbguhthP VmdDsgdmVydGljYWwtYWxp Q572YHCcmWmqUiFnaEp8P3 UtXxp4UKBf jWvuXR9pjNKwRQyzLb9sxR gsdPiqLV6hIGOyyuafm359 UeKqq4znMFQqaWBdRTnaQJ I7B60vj9A1 POGoWJSdTQJ8wJE5fC4etD lnbjogbGVmdDsgdmVydGlj INkiVTjqJ439CGXyzBorEz BhdGllbnQg ERqpWQm9M6YrAsudnOE+PC 39NAEwMZ38pNUbgDSai9se iEs4HiNmDOEcHEZ1gWbyLJ ktd9GxIFFg K13beIEsv3I9TJBjsCtxdG HbPkXbcHX8jZ2kIWsmfbwd o7gzychvJmslr8njby27xK 84I33xDIys ZHRoPSIzMCUiIHZhbGlnbj 5wrD6wQv4+BSNqkCS1hNU9 bF6sPIQcNwQ9IFjzQ929Fy RvcCIvPjxj v3wgl4kzbTk6FpA7APPpuy AseAetYLI1s0AcDa28K58s IHdpZHRoPSIyMCUiIHZhbG bjij6iuV3l Ii8+EIJmdAE2lAG7yH1pAb DuMmI4RKilN994XaHflYFw ZyajR88nB2DajMS+PHRyPj e4DZWyeDgr SG0buDBlRBgqCv6nUBR0Nm TnOuSsNOrlJ8SqNWHebhah prwtkEZ8KZOaLQZucV45Ej 9udDogMTBw jKLLjA2bezobd0kbkeujTi NhOPNrPSh0UFo7RQTefFlc ChRkWYO4YoC0JCH8jPRldQ 1hbGlnbjog pZ1aL8DvFKZhjozjUs20qM 5rDrApSjZ3YJtyUqi+RFVE AMHzBUANBCKRHI0qGukdhR Q+PHRkIHN0 vYxuXLciBLNnkV2bWLHlV1 r9VsUgPyP0RDuuZ6PaOLCc rgueDo90dH3jNgJzDvY5GA tsP2VseoX9 WPHucEJpQRrbWWE5X56ou7 F3VXMdNJBfYKC1gJT9qM8j bGlnbjogbGVmdDsgdmVydG ljYWwtYWxp Q568AQMdjCdmDzLsXtR4Oq N8YWG3Y0ZxHoz7TUIflJle RV9jkAHsIBtpAt1ghSdoeK mkAM8iFKFv cxlqUVIeaF4oGELbcOQbhZ wxNK9gRCLwsrzgj495AlQb HCW5IZEbkAZuB9ZipK6kUc AjMDAwMDAw V3MzrLEbJKghG004JMhgCy J6SXOqnhAiA2KgBWNshRmi YgL8d6A1Bt21FDATUJPuql wvdGQ+PHRk OCH4pWsvVDtiWCKovN7bFW NtW0j7CpXeCkT1PMhuP8Dw JGHhyyywNn61sN9yAuFoRd J2ZNteH6Jq asA3OZBqrOTkACnqOCX9D2 7py0F9SRVtWLFaDKD4gHA6 yO0njJqkniekmCKffFueyh VydGljYWwt FBdqC513VTQnuIuqHq5pjQ B8D4IxAoh9RSFlyZkhCW7v zJXdCZmlVj0voEjmuSykQM 4wNTBpbjtw FIElpO9yHKKnzUZfsNuvNX 7pKCCmtvhej270FoCgLHW9 TZTimCGhK0BmjZ2fKhUoWQ DfHPWuB3Gh vWCnJGdlA677CYvzNiZ3UL ZqkeShN4BvPGFtvHtxUyX8 p0O2Qh7EpPUmZXMxZA14IJ 06XE39I5Cg PjwvdGFibGU+PHRhYmxlIH dpZHRoPScxMDAlJyBzdHls GL8vYc2mOIIuDLPjvKuajX AmErLjb6tt JHDjJZylAO1kgSqdD8OhpF E2TDKbn8z8Mz09X30kL0Fa dXA+AMGmrIK4dFU7nI3eSi HpFhM7QOoq Y856FdPxkXPoOigfy2aeh3 cmfMf7EuLwRJWvnnLjoHxw FXF8p3HjJi82W74yUNyzYV RoPSIyMCUi GKBsjXkorx7fvQ9cRn2+PG BnvZU8eRO6hE8dYhWpTpJ5 XCweC714BtYeoNEjMtkvN1 0xA9IfgSF+ DQMoBbo7XIFkiJsjQW3ozM XlTInyEq2tZJZ0NcJqSwTb ZZgoB9FdKBRzypzfojmjsT I6RCHoSGDk pR44Gn7jkEcgFr7gRVNaAV K7JACbsOUbJ9GidW2mNqDz BGHqEVLxY8OpxSKsBGyxZ1 00ZUtfHpQ3 UXUmauBvQ6ZoIZQqmLgeRz Z6e2M7Th1PsXyciSOoKW7j FiKvVKl0L1BaEgl6KLXlyK mePT5ydBEl RXptXc1vqQgmoFcoLB2jPR Xidahfm565YnMmx1bmQVLv sUOnVMpeUHK7M59on1C4TA MwMDAwMDA7 eTC6jI8cgQjusddhpVMbkM zvinZsjSgdODnrUInyS444 JSXvmMucTvHVWdj5V1UuRk b0GDBfwYuo SZ6myHAwFWnlKs7xiOlgdO ooGT2yAGRfydrdi249SbQh z6qmZTAhtJVxRBmwFLC1Y4 6ld7S0RCIa YDIyZPP4uXZ6pY5vfJwjxc ogbGVmdDsgdmVydGljYWwt QXvnO423UUFjmHjgNr0EZw d0C3DeFnc2 MUKeyZkjDA3zrBBtHTmuPn 7krHdbbKzkIR6aWJDgmlnm g614AzSzb2gaVZNrdGVvWE mtHEJ7Q02u c2B0IJOqECDyIFT4gIN3uE 1hbGlnbjogbGVmdDsgdmVy zHmyDYjfGNdhZ719WIDgqP snPlBheWVy OjwvdGQ+OC84jc49V0OcLo yvNkg8AITsTFQ7jBV1yQ9q GYUqWAxze5Z9tGF4B2Bauo Mfnx2ut5ci YXBz (more content not included)... Normal [facility] Outside Recordson 11-27-2022 Outside Records [id number]:127 Normal [facility] Office Visit (Cardiology)on 11-21-2022 Follow-up visit Diagnoses/Problems [...] up in 1 year. Retrieve stress from [place] The provider reviewed the following test(s) and [...] years the last of which was in [place] 2 and half years ago which was [...] I will retrieve the stress test from [place]. Patient is considered low risk for the [...] Vital Signs Recorded: 21Nov2022 10:36AMRecorded: 21Nov2022 10:34AM Mmlhehxg398, LUE, Uotrntf280, RUE, Sitting Tccljgggn47, LUE, Liqmqew39, RUE, Sitting Heart Rate67, Apical Height5 ft 7 in Kkqiyw661 lb BMI Bymnbuqedk77.98 kg/m2 BSA Calculated1.96 Tobacco Useb) No PHQ-2 [...] no masses (more content not included)... Normal [employer] Tobacco Screening.on 023 Adult depression screening assessment No [facility] 250 DO Work Phone: Fall risk assessment a) No falls within the last year [facility] 250 DO Work Phone: Tobacco use status CPHS b) No [facility] [place] 250 DO Work Phone: Auto Diffon 11-16-2022 Basophils/100 WBC (Bld) 0.0 % Normal 0.0-2.0 [facility] Comment on above: Order Comment: Order Added by Discern Expert. Performed By: #### 2 191482, [id number], 3983973, 20293188, 5828601 ####[facility] [address] [place] [address] Basophils/Leukocytes Auto (Bld) [Pure # fraction] 0.0 E9/L Normal 0.0-0.2 [facility] Comment on above: Order Comment: Order Added by Discern Expert. Performed By: #### 2 732330, 35803277, 7227913, 89267712, 2530730 ####[facility] [address] [place] [address] Eosinophils/100 WBC (Bld) 6.6 % Normal 0.0-8.0 [facility] Comment on above: Order Comment: Order Added by Discern Expert. Performed By: #### 2 340519, 96281443, 3090869, 41334463, 7847771 ####[facility] [address] [place] [address] Eosinophils/Leukocyte s Auto (Bld) [Pure # fraction] 0.3 E9/L Normal 0.0-0.5 [facility] Comment on above: Order Comment: Order Added by Discern Expert. Performed By: #### 2 395896, 71262650, 2223017, 63674506, 4964489 ####[address] [address] Lymphocytes/100 WBC (Bld) 34.7 % Normal 14.0-50.0 [facility] Comment on above: Order Comment: Order Added by Discern Expert. Performed By: #### 2 570942, 03611985, 5840263, 09545791, 7286707 ####[address] [address] Lymphocytes/Leukocyte s Auto (Bld) [Pure # fraction] 1.7 E9/L Normal 1.0-4.0 [facility] Comment on above: Order Comment: Order Added by Discern Expert. Performed By: #### 2 270885, 82171764, 8870956, 50556016, 1869197 ####[address] [address] Monocytes/100 WBC (Bld) 11.5 % Normal 4.0-14.0 [facility] Comment on above: Order Comment: Order Added by Discern Expert. Performed By: #### 2 669362, 69421373, 9124018, 00749674, 8536341 ####[address] [place] [address] Monocytes/Leukocytes Auto (Bld) [Pure # fraction] 0.6 E9/L Normal 0.2-1.0 [facility] Comment on above: Order Comment: Order Added by Discern Expert. Performed By: #### 2 587162, 36955011, 8986144, 77068614, 3860389 ####[facility] [address] [place] [address] Neutrophils/100 WBC (Bld) 47.2 % Normal 36.0-75.0 [facility] Comment on above: Order Comment: Order Added by Discern Expert. Performed By: #### 2 040331, 65797186, 1467957, 24841627, 9289874 ####[facility] [address] [place] [address] Neutrophils/Leukocyte s Auto (Bld) [Pure # fraction] 2.3 E9/L Normal 2.0-7.5 [facility] Comment on above: Order Comment: Order Added by Milady Expert. Performed By: #### 2 721124, 83390968, 1042623, 11662367, 2437133 ####[facility] [address] [place] [address] BMPon 11-16-2022 Anion gap [Moles/Vol] 9 mmol/L Normal 6-16 [facility] Comment on above: Performed By: #### 2 850724, 92246603, 9369141, 15047319, 2417689 ####[facility] [address] [place] [address] Calcium [Mass/Vol] 9.1 mg/dL Normal 8.9-11.1 [facility] Comment on above: Performed By: #### 2 240344, 08841100, 3256793, 42299504, 2874285 ####[facility] [address] [place] [address] Chloride [Moles/Vol] 105 mmol/L Normal 101-111 [facility] Comment on above: Performed By: #### 2 124508, 06027828, 2103043, 44486065, 7249381 ####[facility] [address] [place] [address] CO2 [Moles/Vol] 29 mmol/L Normal 21-31 [facility] Comment on above: Performed By: #### 2 930936, 69802545, 2915960, 00130705, 1799547 ####[facility] [address] [place] [address] Creatinine [Mass/Vol] 1.1 mg/dL Normal 0.5-1.3 [facility] Comment on above: Performed By: #### 2 209839, 13638000, 8892168, 49943541, 7305916 ####[facility] [address] [place] [address] Glucose [Mass/Vol] 73 mg/dL Normal 55-199 [facility] Comment on above: Result Comment: If t his glucose result represents a fasting glucose, interpretation should refer to the following reference range: 55-99 mg/dL Performed By: #### 2 031931, 60896872, 7322599, 16934950, 8904296 ####[facility] [address] [place] [address] Potassium [Moles/Vol] 4.1 mmol/L Normal 3.5-5.3 [facility] Comment on above: Performed By: #### 2 782109, 26791321, 9342808, 70062406, 2141547 ####[facility] [address] [place] [address] Sodium [Moles/Vol] 139 mmol/L Normal 135-145 [facility] Comment on above: Performed By: #### 2 971900, 94023818, 7213053, 70502836, 9916051 ####[facility] [address] [place] [address] Urea nitrogen [Mass/Vol] 23 mg/dL High 5-21 [facility] Comment on above: Performed By: #### 2 139111, 56336077, 4551111, 44895765, 1749737 ####[facility] [address] [place] [address] Urea nitrogen/Creatinine [Mass ratio] 21 No Units High 10-20 [facility] Comment on above: Performed By: #### 2 513523, 33498131, 7687688, 39898917, 0457588 ####[facility] [address] [place] [address] CBC w/ Auto Diffon 3 Erythrocyte distribution width (RBC) [Ratio] 13.6 % Normal 10.9-14.2 [facility] Comment on above: Performed By: #### 2 203578, 98352627, 5214449, 93110963, 1457806 #### [facility] [address] [place] [address] Hematocrit (Bld) [Volume fraction] 43.3 % Normal 37.7-49.0 [facility] Comment on above: Performed By: #### 2 824635, 26996712, 8713141, 81340799, 5753125 #### [facility] [address] [place] [address] Hemoglobin (Bld) [Mass/Vol] 14.1 g/dL Normal 13.5-17.5 [facility] Comment on above: Performed By: #### 2 647767, 19726103, 2984631, 79108225, 6592599 #### [facility] [address] [place] [address] MCH (RBC) [Entitic mass] 31.8 pg Normal 27.0-34.0 [facility] Comment on above: Performed By: #### 2 718511, 75708210, 8997045, 10936821, 3088291 #### [facility] [address] [place] [address] MCHC (RBC) [Mass/Vol] 32.6 g/dL Normal 31.4-36.0 [facility] Comment on above: Performed By: #### 2 104044, 55371527, 4296850, 24555797, 2219647 #### [facility] [address] [place] [address] MCV (RBC) [Entitic vol] 97.3 fL Normal 80.0-100.0 [facility] Comment on above: Performed By: #### 2 863036, 61182884, 4960277, 79213203, 8373005 #### [facility] [address] [place] [address] Platelet mean volume (Bld) [Entitic vol] 8.1 fL Normal 6.4-10.8 [facility] Comment on above: Performed By: #### 2 552787, 71533698, 3645668, 02155580, 2033438 #### [facility] [address] [place] [address] Platelets (Bld) [#/Vol] 215.0 E9/L Normal 150.0-500.0 [facility] Comment on above: Performed By: #### 2 086579, 98910038, 9658128, 85558315, 2828075 #### [facility] [address] [place] [address] RBC (Bld) [#/Vol] 4.4 E12/L Normal 4.3-5.9 [facility] Comment on above: Performed By: #### 2 079314, 91876274, 3261976, 17320738, 7703333 #### [facility] [address] [place] [address] WBC corrected for nucl RBC Auto (Bld) [#/Vol] 5.0 E9/L Normal 4.0-11.0 [facility] Comment on above: Performed By: #### 2 681973, 36878010, 4426938, 40964274, 9732989 #### [facility] [address] [place] [address] CHEMISTRYOrdered By: SYSTEM SYSTEM on 11-16-2022 Anion gap [Moles/Vol] 9 mmol/L Normal 6 - 16 mEq/L [facility] Calcium [Mass/Vol] 9.1 mg/dL Normal 8.9 - 11. 1 mg/dL [facility] Chloride [Moles/Vol] 105 mmol/L Normal 101 - 1 11 mmol/L [facility] CO2 [Moles/Vol] 29 mmol/L Normal 21 - 31 mmol/L [facility] Creatinine [Mass/Vol] 1.1 mg/dL Normal 0.5 - 1.3 mg/dL [facility] GFR/1.73 sq M.predicted among blacks MDRD (S/P/Bld) [Vol rate/Area] mL/min/1.73 m2 Normal >=59mL/min/ 1.73 m2 [facility] Chem S GFR/1.73 sq M.predicted among non-blacks MDRD (S/P/Bld) [Vol rate/Area] mL/min/1.73 m2 Normal >=59mL/min/ 1.73 m2 [facility] Chem S Glucose [Mass/Vol] 73 mg/dL Normal 55 - 199 mg/dL [facility] Potassium [Moles/Vol] 4.1 mmol/L Normal 3.5 - 5.3 mmol/L [facility] Sodium [Moles/Vol] 139 mmol/L Normal 135 - 145 mmol/L [facility] Urea nitrogen [Mass/Vol] 23 mg/dL High 5 - 21 mg/dL [facility] Remisol Urea nitrogen/Creatinine [Mass ratio] 21 mg/mg High 10 - 20 [facility] COAGULATIONOrdered By: Sarbjit Ramirez on 11-16-2022 aPTT Coag (PPP) [Time] 33.2 s Normal 25.1 - 36.5 second(s) [facility] Auto Coag INR Coag (PPP) [Relative time] 1.1 {INR} Invalid Interpretation Code [facility] Auto Coag PT Coag (PPP) [Time] 12.6 s High 9.4 - 1 2.5 second(s) [facility] Auto Coag Consent for Treatmenton 11-07 Consent for Treatment [id number] 0CD:127 Normal [facility] HEMATOLOGYOrdered By: SYSTEM SYSTEM on 11-16-2022 Basophils/100 WBC (Bld) 0.0 % Normal 0.0 - 2.0 % [facility] HemeAutoSS Basophils/Leukocytes Auto (Bld) [Pure # fraction] 0.0 E9/L Normal 0.0 - 0.2 E9/L [facility] HemeAutoSS Eosinophils/100 WBC (Bld) 6.6 % Normal 0.0 - 8.0 % [facility] HemeAutoSS Eosinophils/Leukocyte s Auto (Bld) [Pure # [...] 2.3 E9/L Normal 2.0 - 7.5 E9/L [facility] HemeAutoSS HEMATOLOGYOrdered By: Mame Penaloza on 11-16-2022 Erythrocyte distribution width (RBC) [Ratio] 13.6 % Normal 10.9 - 14.2 % [facility] HemeAutoSS Hematocrit (Bld) [Volume fraction] 43.3 % Normal 37.7 - 49.0 % [facility] HemeAutoSS Hemoglobin (Bld) [Mass/Vol] 14.1 g/dL Normal 13.5 - 17.5 gm/dL [facility] HemeAutoSS MCH (RBC) [Entitic mass] 31.8 pg [...] 215.0 E9/L Normal 150.0 - 500.0 E9/L [facility] HemeAutoSS RBC (Bld) [#/Vol] 4.4 E12/L Normal 4.3 - 5.9 E12/L [facility] HemeAutoSS WBC corrected for nucl RBC Auto (Bld) [#/Vol] 5.0 E9/L Normal 4.0 - 11.0 E9/L [facility] HemeAutoSS PT & PTTon 11-16-2022 aPTT Coag (PPP) [Time] 33.2 second(s) Normal 25.1-36.5 [facility] Comment on above: Result Comment: Para meter [...] the same coagulation reagent and instrumentation as [facility]. Currently there are no coagulation studies available worldwide for children to 14 days, and no normal ranges. Heparin therapeutic range (represented by Anti-Factor Xa activity of 0.2 - 0.4 U/mL) corresponds to PTT of 56.6 - 109.0 sec. Performed By: #### 2 549458, 67447244, 1217797, 38075774, 8669740 #### [facility] [address] [place] [address] INR Coag (PPP) [Relative time] 1.1 {INR} Invalid Interpretation Code [facility] Comment on above: Result Comment: INR results are specifically intended to assess patients stabilized on long-term Anticoagulation therapy suggested INR?s ?Less Intensive Anticoagulation? 2.0 ? 3.0 Conventional Range 3.0 ? 4.5 Performed By: #### 2 302732, 69761422, 6776328, 77054083, 2363051 #### [facility] [address] [place] [address] PT Coag (PPP) [Time] 12.6 second(s) High 9.4-12.5 [facility] Comment on above: Result Comment: 15 d [...] the same coagulation reagent and instrumentation as [facility]. Currently there are no coagulation studies available worldwide for children to 14 days, and no normal ranges. Performed By: #### 2 370078, 21637749, 5484701, 98416933, 3445760 #### [facility] [address] [place] [address] UA With Cult Reflexon 2022 Bacteria LM Ql (Urine sed) TRACE Normal Trace [facility] Comment on above: Performed By: #### 1 [id number] ####[facility] [address] [place] [address] Bilirubin Ql (U) Negative Normal Negative [facility] Comment on above: Performed By: #### 1 [id number] ####[facility] [address] [place] [address] Clarity (U) CLEAR Normal Clear [facility] Comment on above: Performed By: #### 1 [id number] ####[facility] [address] [place] [address] Color (U) YELLOW Normal Yellow [facility] Comment on above: Performed By: #### 1 [id number] ####[facility] [address] [place] [address] Epithelial cells.squamous LM.HPF (Urine sed) [#/Area] 0-2 Normal 0-2 [facility] Comment on above: Performed By: #### 1 [id number] ####[facility] [address] [place] [address] Glucose Test strip (U) [Mass/Vol] Negative Normal Negative [facility] Comment on above: Performed By: #### 1 [id number] ####[facility] [address] [place] [address] Hemoglobin Ql (U) Negative Normal Negative [facility] Comment on above: Performed By: #### 1 [id number] ####[address] [place] [address] Ketones (U) [Mass/Vol] Negative Normal Negative [facility] Comment on above: Performed By: #### 1 [id number] ####[address] [address] [place].plasma/Lith[place] m.RBC (Bld) [Mass ratio] 0-3 Normal 0-3 [facility] Comment on above: Performed By: #### 1 [id number] ####[facility] [address] [place] [address] Nitrite Ql (U) Negative Normal Negative [facility] Comment on above: Performed By: #### 1 [id number] ####[address] [address] pH (U) 7.5 [pH] Invalid Interpretation Code 5.0-9.0 [facility] Comment on above: Performed By: #### 1 [id number] ####[address] [place] [address] Protein (U) [Mass/Vol] Negative Normal Negative [facility] Comment on above: Performed By: #### 1 [id number] ####[address] [address] Specific gravity (U) [Rel density] 1.020 Invalid Interpretation Code 1.005-1.030 [facility] Comment on above: Performed By: #### 1 [id number] ####[address] [place] [address] Type of Urine collection method Clean Catch Normal [facility] Comment on above: Performed By: #### 1 [id number] ####[address] [place] [address] Urobilinogen Qn (U) 0.2 {Jaleel'U}/dL Normal 0.0-1.0 [facility] Comment on above: Performed By: #### 1 [id number] ####[address] [address] WBC Auto Ql (U) Negative Normal Negative [facility] Comment on above: Performed By: #### 1 [id number] ####[address] [address] WBC LM.HPF (Urine sed) [#/Area] 0-5 Normal 0-5 [facility] Comment on above: Performed By: #### 1 [id number] ####[address] [address] URINALYSISOrdered By: Jayme Ramirez on 11-16-2022 Bacteria LM Ql (Urine sed) Trace /HPF Normal Trace/HPF [facility]A Auto SS Bilirubin Ql (U) Negative (11/16/22 9:55 AM) Normal Negative [facility] Auto SS Clarity (U) Clear (11/16/22 9:55 AM) Normal Clear [facility] UA Auto SS Color (U) Yellow (11/16/22 9:55 AM) Normal Yellow [facility] UA Auto SS Epithelial cells.squamous LM.HPF (Urine sed) [#/Area] 0-2 /HPF Normal 0-2/HPF [facility] UA Aut o SS Glucose Test strip (U) [Mass/Vol] Negative (11/16/22 9:55 AM) Normal Negative [facility] UA Auto SS Hemoglobin Ql (U) Negative (11/16/22 9:55 AM) Normal Negative [facility] UA Auto SS Ketones (U) [Mass/Vol] Negative (11/16/22 9:55 AM) Normal Negative [facility] UA Auto SS [place].plasma/[place]ith[place] m.RBC (Bld) [Mass ratio] 0-3 /HPF Normal 0-3/HPF [facility] UA Auto SS Nitrite Ql (U) Negative (11/16/22 9:55 AM) Normal Negative [facility] UA Auto SS pH (U) 7.5 *NA* (11/16/22 9:55 AM) Invalid Interpretation Code 5.0 - 9.0 [facility] UA Auto SS Protein (U) [Mass/Vol] Negative (11/16/22 9:55 AM) Normal Negative [facility] UA Auto SS Specific gravity (U) [Rel density] 1.020 *NA* (11/16/22 9:55 AM) Invalid Interpretation Code 1.005 - 1.030 [facility] UA Auto SS UA Spec Desc Clean Catch (11/16/22 9:55 AM) Normal [facility] UA Auto SS Urobilinogen Qn (U) 0.5080520 {Jaleel'U}/dL Normal 0.0 - 1.0 EU/dL [facility] UA Auto SS WBC Auto Ql (U) Negative (11/16/22 9:55 AM) Normal Negative [facility] UA Auto SS WBC LM.HPF (Urine sed) [#/Area] 0-5 /HPF Normal 0-5/HPF [facility] UA Auto SS XR Chest 2 Viewson 3 XR Chest 2 Views Exam Date/Time: 11/16/2022 [...] mGy = na DAP = na Normal [facility] eGFRon 11-16-2022 GFR/1.73 sq M.predicted among blacks MDRD (S/P/Bld) [Vol rate/Area] mL/min/{1.73_m2} Normal >=59 [facility] Comment on above: Order Comment: Order added by Discern Expert. Result Comment: eGFR is race adjusted. AA=. Performed By: #### 2 [id number], [id number], [id number], [id number], [id number] ####[facility] [address] [place] [address] GFR/1.73 sq M.predicted among non-blacks MDRD (S/P/Bld) [Vol rate/Area] mL/min/{1.73_m2} Normal >=59 [facility] Comment on above: Order Comment: Order added by Discern Expert. Result Comment: [employer]er jarred kidney disease could be indicated at eGFR's of less than 60 mL/min/1.73m2. Kidney failure is indicated at less than 15 mL/min/1.73m2. Performed By: #### 2 [id number], [id number], [id number] ####[facility] [id number] [place] [address] RAD - Ultrasound Reporton RAD - Ultrasound Report [id number] 0CD:127 Normal [facility] US SCROTUMon 10-17-2022 US SCROTUM EXAM: US [...] by: JERMAIN BROWN Date: 2022-10-17 15:11 Normal [facility] Screenson 10-10-2022 Screens [id number] 0CD:127 Normal [facility] Patient Educationon 10-09-19 23 Patient Education Urology Benign Prostatic Hyperplasia Benign [...] Follow these instructions at home: ? Take jpse-[id number] and prescription medicines only as told by [...] You d (more content not included)... Normal [facility] Urology Office/Clinic Noteon 10-09-2022 Urology Office/Clinic Note [...] their recurrence. Follow-up With When Contact Information Chrissie SOTELO MD, URL [address] [place] [id number]- Additional Instructions: Patient Education Benign Prostatic Hyperplasia [...] Date Status SARS-CoV-2 (COVID-19) mRNA BNT-162b2 vax 10/ (more content not included)... Normal [facility] Comment on above: Result Comment: Elec tronically [...] KINA MAHMOOD Date: 2021-12-02 08:29 Normal [facility] CBC AUTO DIFFon 11-22-2021 BASO # 0.0 103/ul Normal 0.0-0.1 [facility] Comment on above: Performed By: #### C BC #### [facility] Laboratory [address] [place], [place] [address] Dr. Ever Kenny Basophils/100 WBC (Bld) 0.2 % Normal 0.2-2.0 [facility] Comment on above: Performed By: #### C BC #### [facility] [address] [place], [place] [address] Dr. Ever Kenny EO # 0.3 103/ul Normal 0.0-0.7 [facility] Comment on above: Performed By: #### C BC #### [facility] Laboratory [address] [place] [address] Dr. Ever Kenny Eosinophils/100 WBC (Bld) 5.5 % Normal 0.9-7.0 [facility] Comment on above: Performed By: #### C BC #### [facility] Laboratory [address] [place] [address] Dr. Ever Kenny Erythrocyte distribution width (RBC) [Ratio] 12.8 % Normal 11.0-15.0 [facility] Comment on above: Performed By: #### C BC #### [facility] Laboratory [address] [place] [address] Dr. Ever Kenny Hematocrit (Bld) [Volume fraction] 47.1 % Normal 42.0-54.0 [facility] Comment on above: Performed By: #### C BC #### [facility] [address] [place] [address] Dr. Ever Kenny Hemoglobin (Bld) [Mass/Vol] 15.2 g/dL Normal 14.0-18.0 [facility] Comment on above: Performed By: #### C BC #### [facility] Laboratory [address] [place] [address] Dr. Ever Kenny IG # 0.03 10e3/ul Normal 0.00-0.03 [facility] Comment on above: Performed By: #### C BC #### [facility] [address] [place] [address] Dr. Ever Kenny IG % 0.5 % Normal 0.0-0.5 [facility] Comment on above: Performed By: #### C BC #### [facility] [address] [place] [address] Dr. Ever Kenny LYMPH # 1.7 103/ul Normal 1.2-3.8 [facility] Comment on above: Performed By: #### C BC #### [facility] [address] [place] [address] Dr. Ever Kenny Lymphocytes/100 WBC (Bld) 26.9 % Normal 20.5-60.0 [facility] Comment on above: Performed By: #### C BC #### [facility] [address] [place] [address] Dr. Ever Kenny MANUAL DIFF REQ NO Normal [facility] Comment on above: Performed By: #### C BC #### [facility] [address] [place] [address] Dr. Ever Kenny MCH (RBC) [Entitic mass] 31.6 pg Normal 25.9-34.0 [facility] Comment on above: Performed By: #### C BC #### [facility] [address] [place] [address] Dr. Ever Kenny MCHC (RBC) [Mass/Vol] 32.3 g/dL Normal 29.9-35.2 [facility] Comment on above: Performed By: #### C BC #### [facility] [address] [place] [address] Dr. Ever Kenny MCV (RBC) [Entitic vol] 97.9 fL Critically high 80.0-94.0 [facility] Comment on above: Performed By: #### C BC #### [facility] [address] [place] [address] Dr. Ever Kenny MONO # 0.7 103/ul Normal 0.3-0.8 [facility] Comment on above: Performed By: #### C BC #### [facility] [address] [place] [address] Dr. Ever Kenny Monocytes/100 WBC (Bld) 11.1 % Normal 1.7-12.0 [facility] Comment on above: Performed By: #### C BC #### [facility] [address] [place] [address] Dr. Ever Kenny NEUT # 3.4 103/ul Normal 1.4-6.5 [facility] Comment on above: Performed By: #### C BC #### [facility] [address] [place] [address] Dr. Ever Kenny Neutrophils/100 WBC (Bld) 55.8 % Normal 43.0-75.0 [facility] Comment on above: Performed By: #### C BC #### [facility] [address] [place] [address] [address] Ever Kenny Platelet mean volume (Bld) [Entitic vol] 9.2 fL Critically low 9.5-13.5 [facility] Comment on above: Performed By: #### C BC #### [facility] [address] [place] [address] Dr. Ever Kenny PLT 222 103/ul Normal 150-450 [facility] Comment on above: Performed By: #### C BC #### [facility] [address] [place] [address] Dr. Ever Kenny RBC 4.81 106/ul Normal 4.70-6.10 [facility] Comment on above: Performed By: #### C BC #### [facility] [address] [place] [address] Dr. Ever Kenny WBC 6.1 103/ul Normal 4.0-11.0 [facility] Comment on above: Performed By: #### C BC #### [facility] [address] [place] [address] Dr. Ever Kenyn LIPID PROFILEon 11-22-2021 CHOL-HDL RATIO NORM SEE BELOW Normal [facility] Comment on above: Result Comment: 3.3 - 4.4 LOW RISK 4.4 - 7.1 AVERAGE RISK 7.1 - 11.0 MODERATE RISK >11.0 HIGH RISK Performed By: #### L IPID, CMP #### [facility] [address] [place] [address] Dr. Ever Kenny Cholesterol [Mass/Vol] 206 mg/dL Critically high <=200 [facility] Comment on above: Performed By: #### L IPID, CMP #### [facility] [address] [place] [address] Dr. Ever Kenny Cholesterol in HDL [Mass/Vol] 57 mg/dL Normal [facility] Comment on above: Performed By: #### L IPID, CMP #### [facility] [address] [place] [address] Dr. Eevr Kenny Cholesterol in LDL [Mass/Vol] 129.4 mg/dL Normal [facility] Comment on above: Performed By: #### L IPID, CMP #### [facility] [address] [place] [address] [address] Ever Kenny Cholesterol.total/Cho lesterol in HDL [Mass ratio] 3.6 {ratio} Normal [facility] Comment on above: Performed By: #### L IPID, CMP #### [facility] [address] [place] [address] [address] Ever Kenny HDL NORMAL > or = 60 mg/dl - LO W CARDIOVASCULAR RISK <40 mg/dl - HIGH CARDIOVASCULAR RISK Normal [facility] Comment on above: Performed By: #### L IPID, CMP #### [facility] [address] [place] [address] [address] Ever Kenny LDL CALC NORMAL SEE BELOW Normal [facility] Comment on above: Result Comment: <100 mg/dl OPTIMAL 100 - 129 mg/dl NEAR OR ABOVE OPTIMAL 130 - 159 mg/dl BORDERLINE HIGH 160 - 189 mg/dl HIGH >190 mg/dl VERY HIGH Performed By: #### L IPID, CMP #### [facility] [address] [place] [address] [address] Ever Kenny Triglyceride [Mass/Vol] 98 mg/dL Normal <=150 [facility] Comment on above: Performed By: #### L IPID, CMP #### [facility] [address] [place] [address] [address] Ever Kenny VLDL CALC 19.6 mg/dL Normal [facility] Comment on above: Performed By: #### L IPID, CMP #### [facility] [address] [place] [address] [address] Ever Kenny PROF 14(COMP METB)on 022 Albumin [Mass/Vol] 3.9 g/dL Normal 3.5-5.0 [facility] Comment on above: Performed By: #### L IPID, CMP #### [facility] [address] [place] [address] [address] Ever Kenny Albumin/Globulin [Mass ratio] 1.3 {ratio} Normal [facility] Comment on above: Performed By: #### L IPID, CMP #### [facility] [address] [place] [address] [address] Ever Kenny ALP [Catalytic activity/Vol] 52 U/L Normal 38-126 [facility] Comment on above: Performed By: #### L IPID, CMP #### [facility] [address] [place] [address] [address] Ever Kenny ALT [Catalytic activity/Vol] 24 U/L Normal 21-72 [facility] Comment on above: Performed By: #### L IPID, CMP #### [facility] [address] [place] [address] [address] Ever Kenny Anion gap [Moles/Vol] 9.8 mmol/L Normal [facility] Comment on above: Performed By: #### L IPID, CMP #### [facility] [address] [place] [address] [address] Ever Kenny AST [Catalytic activity/Vol] 15 U/L Critically low 17-59 [facility] Comment on above: Performed By: #### L IPID, CMP #### [facility] [address] [place] [address] [address] Ever Kenny Bilirubin [Mass/Vol] 0.7 mg/dL Normal 0.2-1.3 [facility] Comment on above: Performed By: #### L IPID, CMP #### [facility] [address] [place] [address] [address] Ever Kenny Calcium [Mass/Vol] 8.8 mg/dL Normal 8.4-10.2 [facility] Comment on above: Performed By: #### L IPID, CMP #### [facility] [address] [place] [address] [address] Ever Kenny Chloride [Moles/Vol] 106 mmol/L Normal 98-107 [facility] Comment on above: Performed By: #### L IPID, CMP #### [facility] [address] [place] [address] [address] Ever Kenny CO2 [Moles/Vol] 29.5 mmol/L Normal 22.0-30.0 [facility] Comment on above: Performed By: #### L IPID, CMP #### [facility] [address] [place] [address] [address] Ever Kenny Creatinine [Mass/Vol] 1.05 mg/dL Normal 0.66-1.25 [facility] Comment on above: Performed By: #### L IPID, CMP #### [facility] [address] [place] [address] [address] Ever Kenny EGFR-AF HONG KONGER >60 Normal >=60 [facility] Comment on above: Performed By: #### L IPID, CMP #### [facility] [address] [place] [address] [address] Ever Kenny EGFR-NON AF [place]ER >60 Normal >=60 [facility] Comment on above: Performed By: #### L IPID, CMP #### [facility] [address] [place] [address] Dr. Ever Kenny Globulin (S) [Mass/Vol] 2.9 g/dL Normal [facility] Comment on above: Performed By: #### L IPID, CMP #### [facility] [address] [place] [address] [address] Ever Kenny Glucose [Mass/Vol] 105 mg/dL Normal 74-106 [facility] Comment on above: Performed By: #### L IPID, CMP #### [facility] [address] [place] [address] [address] Ever Kenny Potassium [Moles/Vol] 4.3 mmol/L Normal 3.4-5.0 [facility] Comment on above: Performed By: #### L IPID, CMP #### [facility] [address] [place] [address] [address] Ever Kenny Protein [Mass/Vol] 6.8 g/dL Normal 6.1-8.2 [facility] Comment on above: Performed By: #### L IPID, CMP #### [facility] [address] [place] [address] [address] Ever Kenny Sodium [Moles/Vol] 141 mmol/L Normal 137-145 [facility] Comment on above: Performed By: #### L IPID, CMP #### [facility] [address] [place] [address] [address] Ever Kenny Urea nitrogen [Mass/Vol] 19.0 mg/dL Normal 9.0-20.0 [facility] Comment on above: Performed By: #### L IPID, CMP #### [facility] [address] [place] [address] Dr. Ever Kenny Urea nitrogen/Creatinine [Mass ratio] 18.1 mg/mg Normal [facility] Comment on above: Performed By: #### L IPID, CMP #### [facility] [address] [place] [address] Dr. Ever Kenny UA (CLEAN/CATCH) MICROSCOPIC IF INDICATEon 11-22-2021 Bilirubin Ql (U) Negative Normal NEGATIVE [facility] Comment on above: Performed By: #### Will RICH UMICRO #### [facility] Laboratory [address] [place] [address] Dr. Ever Kenny Clarity (U) CLEAR Normal CLEAR [facility] Comment on above: Performed By: #### FAIZA WARRENICRO #### [facility] [address] [place] [address] Dr. Ever Kenny Color (U) LT. YELLOW Normal YELLOW [facility] Comment on above: Performed By: #### Will RICH UMICRO #### [facility] [address] [place] [address] Dr. Ever Kenny Glucose Ql (U) Negative Normal NEGATIVE [facility] Comment on above: Performed By: #### U LAYLA UMICRO #### [facility] [address] [place] [address] Dr. Ever Kenny Hemoglobin Ql (U) MODERATE Abnormal NEGATIVE [facility] Comment on above: Performed By: #### U LAYLA UMICRO #### [facility] [address] [place] [address] Dr. Ever Kenny Ketones Ql (U) Negative Normal NEGATIVE [facility] Comment on above: Performed By: #### SUSHIL WARRENRO #### [facility] [address] [place] [address] [address] Ever Kenny LEUKOCYTES Negative Normal NEGATIVE [facility] Comment on above: Performed By: #### SUSHIL WARRENRO #### [facility] [address] [place] [address] Dr. Ever Kenny Nitrite Ql (U) Negative Normal NEGATIVE [facility] Comment on above: Performed By: #### SUSHIL WARRENRO #### [facility] [address] [place] [address] [address] Ever Kenny pH (U) 7.0 [pH] Normal 5-9 [facility] Comment on above: Performed By: #### SUSHIL WARRENRO #### [facility] Laboratory [address] [place] [address] Dr. Ever Kenny SPEC GRAVITY 1.010 Normal 1.005-<=1.[address] [place] [address] Comment on above: Performed By: #### PARKER WARREN #### [facility] Laboratory [address] [place] [address] Dr. Ever Kenny UA PROTEIN Negative Normal NEGATIVE/ TRACE [facility] Comment on above: Performed By: #### PARKER WARREN #### [facility] Laboratory [address] [place] [address] Dr. Ever Kenny UR MICRO IND INDICATED Normal [facility] Comment on above: Performed By: #### PARKER WARREN #### [facility] [address] [place] [address] Dr. Ever Kenny Urobilinogen Qn (U) 0.2 {Jaleel'U}/dL Normal 0.2 - 1. 0 [facility] Comment on above: Performed By: #### PARKER WARREN #### [facility] [address] [place] [address] Dr. Ever Kenny URINE MICROSCOPIC ONLYon BACTERIA NONE SEEN Normal NONE SEEN [facility] Comment on above: Performed By: #### FAIZA WARRENICRO #### [facility] [address] [place] [address] [address] Ever Kenny Bacteria identified Cx Nom (U) NOT INDICATED Normal [facility] Comment on above: Performed By: #### U LAYLA UMICRO #### [facility] [address] [place] [address] [address] Ever Kenny CAST NONE SEEN Normal NONE SEEN [facility] Comment on above: Performed By: #### U LAYLA UMICRO #### [facility] [address] [place] [address] [address] Ever Kenny Crystals LM Nom (Urine sed) NONE SEEN Normal NONE SEEN [facility] Comment on above: Performed By: #### U LAYLA UMICRO #### [facility] [address] [place] [address] Dr. Ever Kenny Epithelial cells LM Ql (Urine sed) NONE SEEN Normal NONE SEEN /RARE [facility] Comment on above: Performed By: #### Will RICH ICRO #### [facility] [address] [place] [address] Dr. Ever Kenny MUCOUS SMALL Abnormal NONE SEEN [facility] Comment on above: Performed By: #### Will RICH UMICRO #### [facility] [address] [place] [address] Dr. Ever Kenny RBC 0-2 Normal 0-2 [facility] Comment on above: Performed By: #### Will RICH UMICRO #### [facility] [address] [place] [address] [address] Ever Kenny SPERMATOZOA, UR PRESENT Abnormal [facility] Comment on above: Performed By: #### U LAYLA UMICRO #### [facility] [address] [place] [address] Dr. Ever Kenny WBC NONE SEEN Normal NONE SEEN [facility] Comment on above: Performed By: #### U LAYLA UMICRO #### [facility] [address] [place] [address] Dr. Ever Kenny Vital Signs Date Time Vital Sign Value Performing Clinician Facility 09-08-2023 12:00-0500 Body height 168.91 cm Jeannie Mclean [facility] 09-08-2023 12:00-0500 Body mass index (BMI) [Ratio] 26.8 kg/m2 Jeannie Vinay Other [facility] 09-08-2023 12:00-0500 Body temperature 98.9 [degF] Jeannie Mclean Other [facility] 09-08-2023 12:00-0500 Body weight 76.48 kg Jeannie Mclean Other [facility] 09-08-2023 12:00-0500 Respiratory rate 18 /min Jeannie Mclean Other [facility] 09-08-2023 12:00-0500 SaO2% (BldA) [Mass fraction] 93 % Jeannie Mclean Other [facility] 08-13-2023 10:20-0500 Body height 168.91 cm Jama King Other [facility] 08-13-2023 10:20-0500 Body mass index (BMI) [Ratio] 27.42 kg/m2 Jama King Other [facility] 08-13-2023 10:20-0500 Body weight 78.25 kg Jama King Other [facility] 08-13-2023 10:20-0500 Diastolic blood pressure 70 mm[Hg] Jama King Other [facility] 08-13-2023 10:20-0500 Systolic blood pressure 132 mm[Hg] Jama Scovanner Other [facility] 07-09-2023 10:20-0400 Body height 168.91 cm Jama Scovanner Other [facility] 07-09-2023 10:20-0400 Body mass index (BMI) [Ratio] 27.34 kg/m2 Jama Scovanner Other [facility] 07-09-2023 10:20-0400 Body weight 78.02 kg Jama Scovanner Other [facility] 07-09-2023 10:20-0400 Diastolic blood pressure 67 mm[Hg] Jama Scovanner Other [facility] 07-09-2023 10:20-0400 Systolic blood pressure 129 mm[Hg] Jama Scovanner Other [facility] 03-04-2023 09:03-0400 Blood Pressure Location [facility] 03-04-2023 09:03-0400 Diastolic blood pressure 78 mm[Hg] Chrissie [facility] 03-04-2023 09:03-0400 Heart rate 68 /min Chrissie [facility] 03-04-2023 09:03-0400 Respiratory rate 16 /min Chrissie [facility] 03-04-2023 09:03-0400 Systolic blood pressure 128 mm[Hg] Chrissie SOTELO [facility] 12-18-2022 11:15-0400 Body height 168.91 cm Jeannie Mclean Other [facility] 12-18-2022 11:15-0400 Body mass index (BMI) [Ratio] 29.41 kg/m2 Jeannie Mclean Other [facility] 12-18-2022 11:15-0400 Body temperature 97.1 [degF] Jeannie Mclean Other [facility] 12-18-2022 11:15-0400 Body weight 83.92 kg Jeannie Mclean Other [facility] 12-18-2022 11:15-0400 Diastolic blood pressure 75 mm[Hg] Jeannie Mclean Other [facility] 12-18-2022 11:15-0400 Respiratory rate 18 /min Jeannie Mclean Other [facility] 12-18-2022 11:15-0400 SaO2% (BldA) [Mass fraction] 96 % Jeannie Mclean Other [facility] 12-18-2022 11:15-0400 Systolic blood pressure 125 mm[Hg] Jeannie Mclean Other [facility] 11-29-2022 12:25-0400 Body temperature 97.7 [degF] Chrissie SOTELO [facility] 11-29-2022 12:25-0400 Diastolic blood pressure 89 mm[Hg] Chrissie SOTELO [facility] 11-29-2022 12:25-0400 Heart rate 64 /min Chrissie COOK [facility] 11-29-2022 12:25-0400 Respiratory rate 18 /min Chrissie COOK [facility] 11-29-2022 12:25-0400 SaO2% (BldA) [Mass fraction] 97 % Chrissie COOK [facility] 11-29-2022 12:25-0400 Systolic blood pressure 139 mm[Hg] Chrissie COOK [facility] 11-29-2022 11:25-0400 Blood Pressure Location Chrissie COOK [facility] 11-29-2022 11:25-0400 Body temperature 97.7 [degF] Chrissie COOK [facility] 11-29-2022 11:25-0400 Diastolic blood pressure 72 mm[Hg] Chrissie COOK [facility] 11-29-2022 11:25-0400 Heart rate 62 /min Chrissie COOK [facility] 11-29-2022 11:25-0400 Respiratory rate 18 /min Chrissie COOK [facility] 11-29-2022 11:25-0400 SaO2% (BldA) [Mass fraction] 97 % Chrissie COOK [facility] 11-29-2022 11:25-0400 Systolic blood pressure 135 mm[Hg] Chrissie COOK [facility] 11-29-2022 11:11-0400 Blood Pressure Location Chrissie COOK [facility] 11-29-2022 11:11-0400 Body temperature 96.8 [degF] Chrissie COOK [facility] 11-29-2022 11:11-0400 Diastolic blood pressure 68 mm[Hg] Chrissie SOTELO [facility] 11-29-2022 11:11-0400 Heart rate 61 /min Chrissie SOTELO [facility] 11-29-2022 11:11-0400 Respiratory rate 16 /min Chrissie SOTELO [facility] 11-29-2022 11:11-0400 SaO2% (BldA) [Mass fraction] 96 % Chrissie SOTELO [facility] 11-29-2022 11:11-0400 Systolic blood pressure 133 mm[Hg] Chrissie SOTELO [facility] 11-29-2022 11:01-0400 Blood Pressure Location Chrissie SOTELO [facility] 11-29-2022 10:40-0400 Respiratory rate 13 /min Chrissie SOTELO [facility] 11-29-2022 10:35-0400 Respiratory rate 12 /min Chrissie SOTELO [facility] 11-29-2022 10:30-0400 Respiratory rate 12 /min Chrissie SOTELO [facility] 11-29-2022 08:30-0400 Body temperature 97.7 [degF] Chrissie SOTELO [facility] 11-29-2022 08:30-0400 Heart rate 78 /min Chrissie SOTELO [facility] 11-21-2022 10:36-0400 Diastolic blood pressure 78 mm[Hg] Antoni P House Work Phone: [facility] 250 DO Work Phone: 11-21-2022 10:36-0400 Systolic blood pressure 122 mm[Hg] Antoni P House Work Phone: [facility] 250 DO Work Phone: 11-21-2022 10:34-0400 Body height 170.18 cm Antoni P House Work Phone: [facility] 250 DO Work Phone: 11-21-2022 10:34-0400 Body mass index (BMI) [Ratio] 28.98 kg/m2 Antoni P House Work Phone: [facility] 250 DO Work Phone: 11-21-2022 10:34-0400 Body surface area Derived from formula 1.96 m2 Antoni P House Work Phone: [facility] 250 DO Work Phone: 11-21-2022 10:34-0400 Body weight 83.92 kg Antoni P House Work Phone: [facility] 250 DO Work Phone: 11-21-2022 10:34-0400 Diastolic blood pressure 76 mm[Hg] Antoni P House Work Phone: [facility] 250 DO Work Phone: 11-21-2022 10:34-0400 Heart rate 67 /min Antoni P House Work Phone: [facility] 250 DO Work Phone: 11-21-2022 10:34-0400 Systolic blood pressure 124 mm[Hg] Antoni P House Work Phone: [facility] 250 DO Work Phone: 11-16-2022 09:42-0500 Diastolic blood pressure 78 mm[Hg] Chrissie SOTELO [facility] 11-16-2022 09:42-0500 Heart rate 60 /min Chrissie SOTELO [facility] 11-16-2022 09:42-0500 Mean blood pressure 96 mm[Hg] Chrissie SOTELO [facility] 11-16-2022 09:42-0500 Systolic blood pressure 132 mm[Hg] Chrissie SOTELO [facility] 11-16-2022 09:42-0500 Heart rate 60 /min Chrissie SOTELO [facility] 11-16-2022 09:42-0500 SaO2% (BldA) [Mass fraction] 98 % Chrissie SOTELO [facility] 11-16-2022 09:42-0500 Body temperature 97.88 [degF] Chrissie SOTELO [facility] 11-16-2022 09:41-0500 Diastolic blood pressure 78 mm[Hg] Chrissie SOTELO [facility] 11-16-2022 09:41-0500 Mean blood pressure 97 mm[Hg] Chrissie SOTELO [facility] 11-16-2022 09:41-0500 Systolic blood pressure 134 mm[Hg] Chrissie SOTELO [facility] 01-15-2022 13:36-0400 Blood Pressure Location Chino Flores Jr. [facility] 01-15-2022 13:36-0400 Diastolic blood pressure 55 mm[Hg] Chino Flores Jr. [facility] 01-15-2022 13:36-0400 Heart rate 73 /min Chino Flores Jr. [facility] 01-15-2022 13:36-0400 Systolic blood pressure 128 mm[Hg] Chino Flores [facility] Encounters Encounter Date Encounter Type Care Provider Facility Start: 03-09-2024 ambulatory Chrissie SOTELO Facility :[facility] Start: 10-13-2023 ambulatory [facility] Start: 10-09-2023 Telephone encounter [facility] Comment on above: STROKE REFERRAL Start: 10-01-2023 End: 10-01-2023 ambulatory SHAIKH ILYAD Not Available Start: 09-08-2023 End: 09-08-2023 ambulatory Jeannie Mclean Other [facility] Start: 09-08-2023 Office outpatient visit 25 minutes Jeannie Mclean [facility] [place] Start: 08-28-2023 End: 08-28-2023 ambulatory SHAIKH MANNYWAD Not Available Start: 08-13-2023 End: 08-13-2023 ambulatory Jama King Other [facility] Start: 08-13-2023 Office outpatient visit 15 minutes Jama King [facility] Start: 07-09-2023 End: 07-09-2023 ambulatory Jama Scatilio Other [facility] Start: 07-09-2023 Office outpatient ne w 30 minutes Jama Scovanner [facility] Start: 03-04-2023 End: 03-05-2023 ambulatory Chrissie Bradley ASHLEIGH Facility: [place] Start: 03-04-2023 End: 03-04-2023 Patient encounter procedure Chrissie SOTELO [facility] Start: 01-21-2023 ambulatory Sam AHMADI Facility: [facility] Start: 12-21-2022 End: 12-22-2022 ambulatory Chrissie SOTELO Facility:[facility] [place] Start: 12-21-2022 End: 12-21-2022 Patient encounter procedure Chrissie SOTELO [facility] Start: 12-18-2022 End: 12-18-2022 ambulatory Jeannie Mclean Other [facility] [employer] Other Start: 12-18-2022 Office outpatient visit 15 minutes Jeannie Mclean [facility] [place] Start: 11-29-2022 End: 11-29-2022 ambulatory Chrissie SOTELO Facility:[facility] Start: 11-29-2022 End: 11-29-2022 Admission to same day surgery center Chrissie SOTELO [facility] Start: 11-21-[address] Antoni Cho Facility: Start: 11-21-2022 Office consultation new/estab patient 60 min Antoni Cho Work Phone: [facility] 250 DO Work Phone: Start: 11-16-2022 End: 11-17-[address] [place]i Cho Facility: Start: 11-16-2022 End: 11-16-2022 Patient encounter procedure Chrissie SOTELO [facility] Start: 10-17-2022 End: 10-18-[address] CHRISSIE SOTELO Facility: Start: 10-09-2022 End: 10-10-2022 ambulatory Chrissie SOTELO Facility:[facility] Start: 10-09-2022 End: 10-09-2022 Patient encounter procedure Chrissie SOTELO [facility] Start: 01-15-2022 End: 01-15-2022 Patient encounter procedure Chino Flores Jr. [facility] Start: 12-01-2021 End: 12-02-[address] ANTONI CHO Facility:[facility] Start: 11-22-2021 End: 11-23-[address] ANTONI CHO Facility:[facility] Patient encounter status Antoni Cho Work Phone: [facility] 250 DO Work Phone: Procedures Date Procedure Procedure Detail Performing Clinician Start: 11-29-2022 Exploration of scrotum Chrissie SOTELO Start: 11-29-2022 Spermatic cord struc ture (body structure) Chrissie SOTELO Start: 01-15-2022 Cystoscopy Chino velazquez Jr. Start: 11-22-[address] LINDA SOTELO Comment on above: Performed By: #### P SAD #### [facility] [address] [place] [address] Dr. Ever Kenny Start: 01-27-2020 Colonoscopy Lauren Dawson ulices Start: 09-09-2019 Total colonoscopy Sarah Cho Work Phone: Colonoscopy Chino Olivo Excision of lipoma Antoni Cho Work Phone: Tonsillectomy Chino rosa Tonsillectomy Antoni oswald Work Phone: Plan of Treatment Date Care Activity Detail Author Start: 01-26-2025 Screening for malignant neoplasm of colon Colonoscopy [facility] Start: 08-07-2024 Tobacco Screening Tobacco Screening [facility] Start: 08-06-2024 Adult BMI Screening Adult BMI Screening [facility] Start: 11-12-2023 FUV, Provider: Taryn Real, Status: Pen, Time: 10:50 AM FUV, Provider: Taryn Real, Status: Pen, Time: 10:[address] [facility] 250 DO Work Phone: Start: 10-24-2023 End: 10-24-2023 Patient encounter procedure 10/24/2023 10:00 AM EST Office Visit [facility] [address] [place] [phone] Larissa Bach MD [address] [place] [address], [address] [place] [address] [facility] Start: 05-10-2023 COVID-19 Vaccine ( season) COVID-19 Vaccine ( season) [facility] Start: 05-10-2023 Influenza vaccination Influenza Vaccine [facility] Start: 2005 Fall Risk Screening Fall Risk Screening [facility] Start: 1990 Administration of varicella zoster vaccine Zoster (Shingles) Vaccine (1 of 2) [facility] Start: 12-06-1959 DTaP,Tdap and Td Vaccines (1 - Tdap) DTaP,Tdap and Td Vaccines (1 - Tdap) [facility] Start: 1958 Adult BMI Follow Up Plan Adult BMI Follow Up Plan [facility] Start: 1952 Depression Screening Depression Screening [facility] Start: 1940 Medicare Annual Wellness Visit Medicare Annual Wellness Visit [facility] Immunizations Immunization Date Immunization Notes Care Provider Fa cility 07-10-2022 Pfizer COVID-19 Vac Bivalent 30 MCG/0.3ML Intramuscular Suspension [email or web address] Work Phone: [facility] 06-15-2022 Fluzone High-Dose Quadrivalent 0.7 ML Intramuscular Suspension Prefilled Syringe [email or web address] Work Phone: [facility] 250 DO Work Phone: 06-15-2022 influenza virus vaccine, unspecified formulation Chrissie SOTELO [facility] 08-10-2021 Pfizer-BioNTech COVID-19 Vacc 30 MCG/0.3ML Intramuscular Suspension Antoni P Norlina Work Phone: [facility] 06-09-2021 SARS-CoV-2 (COVID-19 ) mRNA BNT-162b2 real Flores Jr. [facility] 12-08-2020 SARS-CoV-2 (COVID-19 ) mRNA BNT-162b2 real Flores Jr. [facility] 12-06-2020 Pfizer-BioNTech COVID-19 Vacc 30 MCG/0.3ML Intramuscular Suspension Antoni P Norlina Work Phone: [facility] 11-14-2020 Pfizer-BioNTech COVID-19 Vacc 30 MCG/0.3ML Intramuscular Suspension Antoni P Norlina Work Phone: [facility] 11-07-2020 SARS-CoV-2 (COVID-19 ) mRNA BNT-162b2 real Flores Jr. [facility] 09-03-2020 influenza virus vaccine, unspecified formulation Chrissie SOTELO [facility] 09-03-2020 influenza, high dose seasonal, preservative-free Antoni P Norlina Work Phone: [facility] 250 DO Work Phone: 09-03-2020 pneumococcal conjuga te vaccine, 13 valent Antoni P House Work Phone: [facility] 06-27-2019 influenza virus vaccine, unspecified formulation Chrissie SOTELO [facility] 06-27-2019 influenza, injectabl e, quadrivalent, preservative free Antoni Bradley House Work Phone: [facility] 250 DO Work Phone: 06-27-2019 pneumococcal polysaccharide vaccine, 23 valent Antoni Bradley House Work Phone: [facility] 09-12-2014 tetanus toxoid, redu brenda diphtheria toxoid, and acellular pertussis vaccine, adsorbed Jeannie Mclean Other [facility] [employer] Other Payers Date Payer Category Payer Medicare [id number] 2022 Private Health Insurance [id number] 2014 Private Health Insurance [employer] [id number] 2014-Present [address] [address] [place] [address] [id number] 2005 Medicare MEDICARE MEDICAR E PART A & B [id number] 2005-Present [phone] [address] [place] [address] [id number] 1959 Medicare [id number] 1959 Private Health Insurance [id number] 1940 Unknown [id number] [id number]. 2.593 1940 Unknown [id number] 2.16.840.1.392981.3.579. 2.593 1940 Unknown [id number] 2.16.840.1.830382.3.579. 2.593 1940 Unknown [id number] 2.16.840.1.053408.3.579. 2.356 1940 Unknown [id number] 2.16.840.1.820924.3.579. 2.356 1940 Unknown [id number] 2.16.840.1.135513.3.579. 2.727 1940 Unknown [id number] 2.16.840.1.078374.3.579. 2.727 1940 Unknown [id number] 2.16.840.1.641724.3.579. 2.727 1940 Unknown [id number] 2.16.840.1.428560.3.579. 2.727 1940 Unknown [id number] 2.16.840.1.156148.3.579. 2.727 1940 Unknown [id number] 2.16.840.1.708838.3.579. 2.727 1940 Unknown [id number] 2.16.840.1.321770.3.579. 2.727 1940 Unknown [id number] 2.16.840.1.807129.3.579. 2.1259 1940 Unknown [id number] 2.16.840.1.705911.3.579. 2.1259 1940 Unknown [id number] 2.16.840.1.594912.3.579. 2.1286 Unknown Social History Date Type Detail Facility Start: 01-15-2022 End: 06-11-2023 Tobacco smoking status Ex-smoker (finding) [facility] [place] [email or web address] Start: 10-20-2020 End: 08-07-2023 Sex Assigned At Male [facility] [place] Start: 10-20-2020 End: 06-11-2023 Social alcohol use Social alcohol use -[facility] 250 DO Work Phone: Comment on above: quit 1978; End: 09-09-1978 History of tobacco use Current smoker [facility] End: 09-09-1978 History of tobacco use Cigarette Smoker [facility] Start: 06-11-2023 Tobacco use and exposure Smokeless tobacco non-user [facility] Start: 08-07-2023 Alcohol intake Current drinke r of alcohol (finding) [facility] Childcare Unknown [facility] Start: 06-16-2021 Alcohol Comment 2-4 BEERS A DAY [facility] Start: 1940 Sex Assigned At Not on file [facility] [place] [facility] Equipment Procedure Code Equipment Code Equipment Origin al Text Equipment Identifier Dates [employer] [id number] Start: 07-02-2023 [facility] [employer] [facility] [id number] Start: 08-06-2023 Functional Status Date Assessment Result Facility 03-04-2023 Functional Status N/A [facility] 12-21-2022 Functional Status N/A [facility] 11-16-2022 Functional Status No [facility] 10-09-2022 Functional Status N/A [facility] Clinical Notes 11-22-2021 to 10-09-2023 Telephone Encounter - Lauren Roberts - 10/09/2023 3:00 PM ESTTelephone Encounter - Shalini Blackburn RN - 10/09/2023 3:00 PM ESTTelephone Encounter - Alayna Flores CMA - 10/09/2023 3:00 PM EST Note Date & Type Note Facility 10-09-2023 Miscellaneous Notes Formattin g of this note might be different from the original. Recieved a referral for our Stroke Clinic Referral is uploaded into the Media folder in the patients chart. Dx: ISCHEMIC STROKE OF FRONTAL LOBE Referred by: SHAIKH LUIS ALBERTO MD Images from the original note were not included. Patient [place] [facility] brain [facility] that showed CVA. Headache x 3-4mos. Schedule new patient with Dr. Bach. Patient referred to [facility] however extended wait time. Will have him be seen in boss/tele initially and if follow up needed, can have patient seen in [place] then. Alayna, can you have imaging sent over from [place] please Faxed a request to push over both images and reports. Currently waiting for response. Spoke with patient and made the appt documented in this encounter [facility] 10-09-2023 Telephone encount er Note Recieved a referral for our Stroke Clinic Referral is uploaded into the Media folder in the patients chart. Dx: ISCHEMIC STROKE OF FRONTAL LOBE Referred by: SHAIKH LUIS ALBERTO MD [facility] 10-09-2023 Telephone encount er Note Images from the original note were not included. Patient [facility] brain [facility] that showed CVA. Headache x 3-4mos. Schedule new patient with Dr. Bach. Patient referred to [facility] however extended wait time. Will have him be seen in boss/tele initially and if follow up needed, can have patient seen in [place] then. Alayna, can you have imaging sent over from [place] please [facility] 10-09-2023 Telephone encount er Note Faxed a request to push over both images and reports. Currently waiting for response. [employer] 10-09-2023 Telephone encount er Note Spoke with patient and made the appt [facility] 09-08-2023 Evaluation note Encounter Date Diagnosis Assessment [...] treatment plan. Patient left in stable condition [facility] 2023 Evaluation note* Encounter Date Diagnosis Assessment Notes Treatment Notes Treatment Clinical Notes Aug, Diarrhea (ICD-10 - R19.7) Patient reports that he has had some improvement and will continue Levsin as directed, fiber, and probiotic without change RTO 3 months [facility] 10-31-2023 Evaluation note* Encounter Date Diagnosis Assessment Notes Treatment Notes Treatment Clinical Notes Jun, Diarrhea (ICD-10 - R19.7) This patient states his diarrhea started about 4 months ago. At it's worst, he was only going once, but he had urgency & was a large amount. The frequency & severity have improved somewhat. He reported to [facility] last month. Lab & stool studies [...] colonoscopy. Return visit here in one month [facility] 10-01-2023 History general Narrative - Reported* Type Description Date Medical History Hypercholesteremia Surgical History tonsillectomy and adenoidectomy Surgical History lipoma Surgical History colonoscopy Surgical History cataract removal 06/2023 Hospitalization History see above Hospitalization History [place] [facility] for diarrhea 05/2023 [facility] 10-01-2023 History general Narrative - Reported* Type Description Date Medical History Hypercholesteremia Medical History diarrhea Surgical History tonsillectomy and adenoidectomy Surgical History lipoma Surgical History colonoscopy Surgical History cataract removal 06/2023 Hospitalization History see above Hospitalization History [place] for diarrhea 05/2023 [facility] 06-26-2023 Hospital Discharge instructions Patient Education [...] Follow these instructions at home: Medicines Take ogyi-pgg-nstkdko and prescription medicines only as told by [...] or the blood stops without treatment. Take ujrd-qis-hekskzu and prescription medicines only as told by your health care provider. Drink enough fluid to keep your urine pale yellow. This information is not intended to replace advice given to you by your health care provider. Make sure you discuss any questions you have with your health care provider. Document Revised: 04/26/2021 Document Reviewed: 04/26/2021 [employer] Patient Education 2022 [employer]. Follow Up Care 12/21/2022 09:24:19 With:ASHLEIGH POTTS, Chrissie Bradley, URL Address: [address] [place] [address]- When:Within 1 Year(s) [facility] [id number] Hospital Discharge instructions Patient Education 12/21/2022 09:11:46 [...] Follow these instructions at home: Medicines Take epzx-mjk-upmkwht and prescription medicines only as told by [...] or the blood stops without treatment. Take pgmj-spx-yhbigey and prescription medicines only as told by your health care provider. Drink enough fluid to keep your urine clear or pale yellow. This information is not intended to replace advice given to you by your health care provider. Make sure you discuss any questions you have with your health care provider. Document Released: 08/26/2006 Document Revised: 01/20/2020 Document Reviewed: 09/28/2017 [employer] Patient Education 2020 [employer]. Follow Up Care 11/29/2022 14:24:46 With:ASHLEIGH POTTS, Chrissie Bradley, URL Address: [address] [place] [address] [place] [address]- When:02/20/2023 [facility] [id number] Evaluation note* Encounter Date Diagnosis Assessment Notes [...] understanding and is agreeable with treatment plan. [facility] 03-23-2023 Evaluation + Plan noteExtracted from: Title:CSToni post op Author:Meek Avendano MD Date:11/29/22 Plan Transfer/Discharge: Transfer/Discharge Discharge when meets criteria ( From PACU to Ambulatory Surgery Unit, and To home ). Extracted from: Title:SAFIA GA Author:Meek Avendano MD Date:11/29/22 Plan [place] [employer] Anesthesiologists (ASA) physical status classification: Class II. Anesthetic Preoperative Plan: Anesthesia General. Future Appointments Appointment Date:12/21/2022 09:00:00 AM Scheduled Provider:Chrissie SOTELO MD Location:[facility] Appointment Type:URO Office Visit [facility]03-23-2023 Hospital Discharge instructions Patient Education 11/29/2022 10:49:22 Post Op Patient Instructions - FT (Custom) (Custom) Follow Up Care 10/30/2022 08:14:31 With:CHACHA MULLINS Address: [address] [place], [place] [address] [address] [facility] ([employer] When: Unknown Comments:Call for followup appointment with Mindi Mullins PA-C or me within the next 2-3 weeks. Should you haveproblems prior to that visit, please let us know.No shower for two days. Keep scrotal support and ice intermittently for discomfort.Have a great day! [facility]03-15-2023 Note [id number]:127[facility] 10-09-2022 Hospital Discharge instructions Patient Education [...] urethra. Follow these instructions at home: Take deao-eim-achtwkr and prescription medicines only as told by [...] 08/26/2006 Document Revised: 07/21/2019 Document Reviewed: 09/30/2017 [employer] Patient Education 2020 [employer]. Follow Up Care 10/05/2022 09:45:41 With:ASHLEIGH POTTS, Chrissie Bradley, URL Address: [facility] [place] [id number]- When: Unknown [facility] [phone] Hospital Discharge instructions Patient Education 01/15/2022 14:02:51 [...] Follow these instructions at home: Medicines Take iont-drr-ssxixxz and prescription medicines only as told by [...] or the blood stops without treatment. Take xcct-jdn-ctzclqk and prescription medicines only as told by your health care provider. Drink enough fluid to keep your urine clear or pale yellow. This information is not intended to replace advice given to you by your health care provider. Make sure you discuss any questions you have with your health care provider. Document Released: 08/26/2006 Document Revised: 01/20/2020 Document Reviewed: 09/28/2017 [employer] Patient Education 2020 [employer]. Follow Up Care 01/03/2022 11:13:58 With:Mark Torres MD, Chino Leggett, URO Address: [facility] [address], [place] [address]- When:01/15/2023 [facility] 03-16-2022 NotePROCEDURE: XR SHOULDER LT 2V or > COMPARISON: None. HISTORY: Pain of left shoulder joint FINDINGS: BONES:No acute fracture or dislocation. Moderate acromioclavicular and glenohumeral joint osteoarthropathy with joint space narrowing marginal osteophyte formation. Subchondral cystic change of the glenoid. SOFT TISSUES:Negative. No visible soft tissue swelling. EFFUSION:None visible. OTHER: Negative. IMPRESSION: Moderate osteoarthritis Electronically authenticated by: AQUILES SPAIN Date: 2021-11-22 11:29[facility] Future Appointments Appointment Date:01/21/2023 10:30:00 AM Scheduled Provider:Chino Flores Jr., MD Location:[facility] Appointment Type:URO Office Visit Diagnostic Tests Pending * Urine Cytology ([facility]) 01/15/22 [facility] Evaluation + Plan note Future Appointments Appointment Date:01/21/2023 10:30:00 AM Scheduled Provider:Chino Flores Jr., MD Location:[facility] Appointment Type:URO Office Visit [facility] Evaluation + Plan note Future Appointments Appointment Date:11/29/2022 10:00:00 AM Scheduled Provider: Location:[facility] Appointment Type:Surgery FT Appointment Date:01/21/2023 10:30:00 AM Scheduled Provider:Chino Flores Jr., MD Location:[facility] Appointment [facility] Future Appointments Appointment Date:03/04/2023 08:30:00 AM Scheduled Provider:Chrissie SOTELO MD Location:[facility] Appointment Type:URO Office Visit [facility] Evaluation + Plan note Future Appointments Appointment Date:03/09/2024 08:00:00 AM Scheduled Provider:Chrissie SOTELO MD Location:[facility] Appointment Type:URO Office Visit [facility] [email or web address] History general Narrative - Reported* Type Description Date Medical History Hypercholesteremia Surgical History tonsillectomy and adenoidectomy Surgical History lipoma Surgical History colonoscopy Hospitalization History see above U[facility]ide Other Hospital course Narrative No data available for this section [facility] [email or web address] Hospital Discharge instructions No data available for this section [facility]ructions[facility] on filedocumented in this encounter [facility] No data available for this section [facility] [email or web address] Summary Purpose Family History No Family History [...] Directives Records Found Chief Complaint * STEVE KINGFRANKRoby is being seen for POC Dr. Sotelo [...] years the last of which was in [place] 2 and half years ago which was [...] I will retrieve the stress test from [place]. Patient is considered low risk for the [...] team informatio n (unrecognized section and content) Razor Sharpener Relationship Specialty Start Date End Date Shaikh Poole MD [address] [place] [address] [place] [address] PCP - General Internal Medicine 07/02/23 (unrecognized sect ion and content) No Status Records FoundNo Status Records FoundNo Status Records FoundNo Status Records FoundNo Status Records FoundNo Status Records Found INFORMATION SOURCE (unrecogn ized section and content) DATE CREATED AUTHOR 10/18/2022 [facility] DATE CREATED AUTHOR AUTHOR'S ORGANIZ ATION 11/22/2022 [employer] DATE CREATED AUTHOR AUTHOR'S ORGANIZ ATION 12/16/2022 [facility] DATE CREATED AUTHOR AUTHOR'S ORGANIZ ATION 03/05/2023 Travis Fernandez [facility] DATE CREATED AUTHOR AUTHOR'S ORGANIZ ATION 10/02/2023 [facility] DATE CREATED AUTHOR AUTHOR'S ORGANIZ ATION 10/14/2023 [facility] REASON FOR VISIT (unrecogniz ed section and content) Reason Onset Date Comments STROKE REFERRAL 10/09/2023 FOR RECORDS PERTAINING TO PATIENTS WHO ARE [...] BE BASED ON THE PRIMARY CLINICAL RECORDS. [employer] provides no warranty or guarantee of the accuracy or completeness of information in this document.
== END 2023-10-17 07:59 | disposition home or self-care (01) ==
LOC: US 07:58
PROVIDERS: PCP Internal Medicine; Visit Provider Internal Medicine
DX: I63.9 Cerebral infarction, unspecified (principal); Z86.73 Personal history of transient ischemic attack (TIA), and cerebral infarction without residual deficits
CPT/HCPCS: 93880

== ENCOUNTER 2023-10-25 06:47 | Outpatient (OUT) | payer MEDICARE, OTHER, SELFPAY ==
--- OUTSIDE RECORDS SUMMARY | 2023-10-25 06:51 | XMS_ITS | CCD ---
Author Name Unknown Address [address] [facility] [address] [place] [address] Organization [facility] Care Team Providers Care Allergy Specialist Name Role Phone Antoni Cho Primary Care Physician ASHLEIGH, DR CHRISSIE Bradley Admitting Unavailable ASHLEIGH, DR CHRISSIE Bradley Attending Unavailable ROSE HILL, DR CARRILLO Primary Care Unavailable READING, DR CHRISSIE Bradley Consulting Unavailable NEF, JERMAIN Consulting Unavailable ROSE HILL, DR ANTONI Acevesitting Unavailable ROSE HILL, DR CARRILLO Attending Unavailable ROSE HILL, DR CARRILLO Primary Care Unavailable [place], DR AQUILES Lee Consulting Unavailable ROSE HILL, DR CARRILLO Consulting Unavailable ROSE HILL, DR CARRILLO Admitting Unavailable ROSE HILL, DR CARRILLO Attending Unavailable ROSE HILL, DR CARRILLO Primary Care Unavailable ROSE HILL, DR CARRILLO Consulting Unavailable NARDINI, KINA Consulting Unavailable Easton, Antoni Bradley Unavailable Unavailable Unavailable Deejay, Dr. Antoni Howell Primary Care Unava ilable Deejay, Dr. Antoni Howell Primary Care Unava ilable Taryn Real Referring Unavailable Taryn Real Attending Unavailable Jeannie Mclean Unavailable Chrissie STILES Attending Unavailable COOKChrissie Attending Unavailable COOK, Chrissie P Referring Unavailable COOKChrissie Attending Unavailable COOKChrissie P Admitting Unavailable COOK, Chrissie P Attending Unavailable COOK, Chrissie P Admitting Unavailable COOKChrissie P Referring Unavailable Sam AHMADI Attending Unavailable COOK, Chrissie Bradley Attending Unavailable COOKChrissie Attending Unavailable Jmaa King Unavailable SHAIKH POOLE Attending Unavailable SHAIKH POOLE Attending Unavailable Shaikh Poole MD Primary Care Provider SHAIKH POOLE Referring Unavailable SHAIKH POOLE Primary Care Unavailable Allergies Allergy Classification Reported Allergen(s) Allergy Type Date of Onset Reaction(s) Facility (1 source) No Known Medication Allergies; Translations: [No Known Medication Allergies] Propensity to adverse reactions (disorder) [facility] Repository Medications Current Medications Medication Drug Class(es) Dates Sig (Normalized) Sig (Original) acetaminophen 325 mg / HYDROcodone bitartrate 5 mg oral tablet (1 source) Opioid Agonist Start: 11-29-2022 End: 12-01-2022 acetaminophen-hyd rocodone 325 mg-5 mg oral tablet 1 tab(s), Oral, q4hr Pain for 2 day(s), 7 tab(s), Refill(s) 0, [id number], 170, cm, 11/16/22 11:51:00 EST, Height/Length Dosing, 85, kg, 11/16/22 11:51:00 EST, Weight Dosing Start Date: 11/29/22 Stop Date: 12/01/22 Status: Ordered [id number] 200 actuat albuterol 0.09 mg/actuat metered dose inhaler (3 sources) beta2-Adrenergic Agonist Start: 09-08-2023 take 2 puff(s) by mouth every four to six hours albuterol (PROVENTIL HFA;VENTOLIN HFA) 90 mcg/actuation inhaler inhale 2 puffs by mouth and INTO THE LUNGS every 4 to 6 hours if needed 0 09/08/2023 Active Start: 09-08-2023 take 2 puff(s) by in halation every four to six hours as needed Albuterol Sulfate HFA 108 (90 Base) MCG/ACT 2 puffs as needed Inhalation every 4-6 hours for 14 days Aug, Active aspirin 81 mg chewable tablet (2 sources) Platelet Aggregation Inhibitor, Nonsteroidal Anti-inflammatory Drug take 1 tablet by mouth once daily in the morning aspirin 81 mg chewable tablet chew and swallow 1 tablet by mouth every morning 0 Active atorvastatin 20 mg oral tablet (2 sources) HMG-CoA Reductase Inhibitor Start : 10-08 End: 01-05 take 1 tablet by mouth in the morning atorvastatin (LIPITOR) 20 mg tablet Take 1 tablet (20 mg total) by mouth in the morning. 0 10/08/2023 01/06/2024 Active benzonatate 100 mg oral capsule (1 source) Non-narcotic Antitussive Start : 09-08 take 1 capsule by mouth three times daily as needed Tessalon Perles 100 MG 1 capsule as needed Orally Three times a day for 7 days Aug, Active cephalexin 500 mg oral capsule (1 source) Cephalosporin Antibacterial Start : 11-29 End: 12-04 take 1 capsule by mouth every twelve hours cephalexin 500 mg Cap 500 mg = 1 cap(s), Oral, q12hr, X 5 day(s), # 10 cap(s), Refills(s) 0, Pharmacy: [id number], 170, cm, 11/16/22 11:51:00 EST, Height/Length Dosing, 85, kg, 11/16/22 11:51:00 EST, Weight Dosing Start Date: 11/29/22 Stop Date: 12/04/22 Status: Ordered hyoscyamine sulfate 0.125 mg oral tablet (6 sources) Start : 07-09 take 1 tablet by mouth every eight hours Levsin 0.125 MG 1 tablet Orally three times a day for 30 days Jun, Active methylPREDNISolone 4 mg oral tablet (1 source) Corticosteroid Start : 09-08 methylPREDNISolone 4 MG as directed Orally for 6 Aug, Active Multi Vitamin+ (4 sources) Start : 11-16 Multi Vitamin+ See Instructions, Refill(s) 0, Prophylaxis Start Date: 11/16/22 Status: Ordered Multiple Vitamin (3 sources) Multiple Vitamin Active multivitamin (THERAGRAN) tablet (2 sources) take 1 tablet by mouth in the morning multivitamin (THERAGRAN) tablet Take 1 tablet by mouth in the morning. 0 Active naproxen 250 mg oral tablet (6 sources) Nonsteroidal Anti-inflammatory Drug naproxen (NAPROSY N) 250 mg tablet Take 1 tablet (250 mg total) by mouth. 0 Active Naproxen Sodium 220 MG as directed Orally as needed Active Naproxen Sodium 220 MG Oral Capsule As needed for pain Quantity: 0 Refills: 0 Ordered: 21-Nov-2022 DO Active Omeprazole (11 sources) Proton Pump Inhibitor Start: 11-29-2022 omeprazo le Refills(s) 0, Indigestion Start Date: 11/29/22 Status: Ordered take 1 capsule by mouth every ot her day omeprazole (PriLOSEC) 20 mg capsule Take 1 capsule (20 mg total) by mouth every other day. 0 Active Omeprazole Activ e SUMAtriptan 50 mg oral tablet (2 sources) Serotonin-1b and Serotonin-1d Receptor Agonist Start: 10-01-2023 take 1 tablet by mouth once SUMAtriptan (IMITREX) 50 mg tablet take 1 tablet by mouth ONE TIME DOSE if needed for migraines for ... (REFER TO PRESCRIPTION NOTES). 0 10/01/2023 Active topiramate 50 mg oral tablet (3 sources) Start: 10-01-2023 End: 10-24-2023 take 1 tablet by mouth in the morning, then take 1 tablet by mouth at bedtime topiramate (TOPAMAX) 50 mg tablet Indications: Chronic tension-type headache, not intractable Take 1 tablet (50 mg total) by mouth in the morning and 1 tablet (50 mg total) before bedtime. 120 tablet 3 10/24/2023 Active ubrogepant 100 mg oral tablet (2 sources) Start: 10-08-2023 End: 11-07-2023 ubrogepant (UBRELVY) 100 mg tablet Take 100 mg by mouth. 0 10/08/2023 11/07/2023 Active Completed/Discontinued Medications Medication Drug Class(es) Dates Sig (Normalized) Sig (Original) ciprofloxacin 500 mg oral tablet (2 sources) Quinolone Antimicrobial Start: 01-02-2022 Cipro 500 mg Tab 500 mg = 1 tab(s), Oral, As Directed, Take one tab the day before procedure, then take 1 tab after the procedure., # 2 tab(s), Refills(s) 0, Pharmacy: [facility] [address], 170, cm, 01/02/22 9:19:00 EDT, Height/Length [...] Classification Problem Date Documented Da te Episodic/Chronic Acute cerebrovascular disease (3 sources) Cerebrovascular accident; Translations: [Cerebral infarction, unspecified] Onset: 4 10-24-2023 Chronic Cardiac dysrhythmias (1 source) Palpitations; Translations: [Palpitations] 10-24-2023 Episodic Cataract (2 sources) Cataract of right eye; Translations: [Unspecified cataract] Onset: 4 10-25-2023 Chronic Diabetes mellitus without complication (1 source) Hyperglycemia; Translations: [Hyperglycemia, unspecified] 10-24-2023 Episodic Disorders of lipid metabolism (1 source) Hyperlipidemia, unspecified; Translations: [HYPERLIPIDEMIA UNSPECIFIED] Onset: 2 Chronic Esophageal disorders (3 sources) Gastroesophageal reflux disease; Translations: [Gastro-esophageal reflux disease without esophagitis] Chronic Genitourinary symptoms and ill-defined conditions (15 sources) Blood in urine; Translations: [Gross hematuria] Onset: 2 Episodic Headache; including migraine (3 sources) Chronic tension-type headache; Translations: [Chronic tension-type headache, not intractable] Onset: 4 10-24-2023 Chronic Hyperplasia of prostate (16 sources) Benign prostatic [...] (2 sources) Lipoma (clinical) 12-21-2022 Episodic Other circulatory disease (1 source) History of cerebrovascular accident; Translations: [Personal history of transient ischemic attack (TIA), and cerebral infarction without residual deficits] 10-24-2023 Episodic Other diseases of kidney and ureters [...] 30; Translations: [Overweight] Episodic Residual codes; unclassified (7 sources) Obstructive sleep apnea syndrome; Translations: [Obstructive sleep apnea (adult) (pediatric)] Onset: 4 11-16-2022 Chronic Residual codes; unclassified (1 source) Pain, unspecified; Translations: [Pain, unspecified] Onset: 4 Episodic Screening and history of mental health and substance abuse codes (1 source) Ex-smoker; Translations: [Personal history of tobacco use] Episodic Comment on above: quit 1978; Unclassified (5 sources) Asymptomatic microscopic hematuria 10-09-2022 Past or Other Problems Problem Classification Problem Date Documented Da te Episodic/Chronic Abdominal pain (4 sources) Unspecified abdominal pain; Translations: [UNSPECIFIED ABDOMINAL PAIN] Onset: 11-22-2021 Episodic Mood disorders (2 sources) Mood disorders Onset: 10-24-2023 10-24-2023 Other non-traumatic joint disorders (1 source) Pain in left shoulder; Translations: [PAIN IN LEFT SHOULDER] Onset: 11-23-2021 Episodic Unclassified (1 source) Acute cough R05.1 Results Test Name Value Interpretation Reference Range Facility COVID + FLU Quick Testingon 09-08-2023 SARS-CoV-2 (COVID-19) RNA RANDALL+probe Ql (Unsp spec) Negative [facility] Other COVID + FLU Quick Testing Positive [facility] [employer] Other COVID + FLU Quick Testing Negative [facility] [employer] Other Ambulatory Visit Summaryon 0 03-04-2023 Ambulatory Visit Summary STEVE DE LEON :1940 Visit Date:03/04/2023 Ambulatory Visit Instructions Your Diagnosis Lipoma Spermatic cord cyst Asymptomatic microscopic hematuria 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 Take bewk-mrq-vguldbn and prescription medicines only as told by [...] the blood stops without treatment. ? Take vasc-jso-oolfkza and prescription medicines only as told by your health care provider. ? Drink enough fluid to keep your urine pale yellow. This information is not intended to replace advice given to you by your health care provider. Make sure you discuss any questions you have with your health care provider. Document Revised: 04/26/2021 Document Reviewed: 04/26/2021 [employer] Patient Education ? 2022 [employer] Anabel. Ruben Robles [facility] Urology Office/Clinic Noteon 03-04-2023 Urology Office/Clinic Note [...] and history for this patient from Dr. Stiles. I have reviewed and verified the staff [...] Chrissie Bradley, URL In [address] [place] [id number]- Additional Instructions: Patient Education Hematuria, Adult I, Sofiya Gaytan, personally scribed for Dr. Stiles on 03/04/2023 09:32:00. . Documentation recorded by the scribmargret, Sofiya Gaytan, accurately reflects the services(s) I performed and decisions made by me. Authenticated by Dr. Stiles on 03/04/2023 09:32:51. Problem List/Past Medical History [...] Daily, 11/16/2022 (more content not included)... Normal [facility] Comment on above: Result Comment: Elec tronically Signed By: Chrissie STILES MD\.br\Date and Time Signed: 03/04/23 09:33 EDT\.br\Electronically Co-Signed By: Sofiya Gaytan\.br\Date and Time Co-Signed: 03/04/23 09:32 EDT [place] 12-24-2022 Screens [id number]#1.0 0CD:127 Normal [facility] Patient Educationon 12-22-19 23 Patient Education Urology Hematuria, Adult Hematuria [...] these instructions at home: Medicines ? Take frlh-laa-bekapfa and prescription medicines only as told by [...] the blood stops without treatment. ? Take pvqv-hym-wevepnd and prescription medicines only as told by your health care provider. ? Drink enough fluid to keep your urine clear or pale yellow. This information is not intended to replace advice given to you by your health care provider. Make sure you discuss any questions you have with your health care provider. Document Released: 08/26/2006 Document Revised: 01/20/2020 Document Reviewed: 09/28/2017 [employer] Patient Education ? 2019 [employer]. [facility] Urology Office/Clinic Noteon 12-21-2022 Urology Office/Clinic [...] that visit Follow-up With When Contact Information Chrissie STILES MD, URL In 2 months 02/20/[address] [place] [id number]- Additional Instructions: Patient Education Hematuria, Adult I, Sue Black , personally scribed for Dr. Stiles on 12/21/2022 09:22:44. . Documentation recorded by the scribe, Sue Black MA, accurately reflects the services(s) I performed and decisions made by me. Authenticated by Dr. Stiles on 12/21/2022 09:31:21. Problem List/Past Medical History [...] Instructions omeprazole Allergie (more content not included)... [facility] Comment on above: Result Comment: Elec tronically Signed By: Chrissie STILES MD\.br\Date and Time Signed: 12/21/22 09:32 EDT\.br\Electronically Co-Signed By: Sue Black MA\.br\Date and Time Co-Signed: 12/21/22 09:22 EDT Postoperative Documentson Postoperative Documents [id number]#1.0 0CD:127 Normal [facility] Coding Summary.on 2022 Coding Summary. CD:[id number] Ww +PGhlYWQ+CM9HCSSwI86dt HJppK0iN6CKDQnAOjbxSLP YOJzZWlRnjjBpCE9lbJRhT XJu IC8+GI8nTQCpUawvwREgr2 B2gWH0D76wyt6qYXsolGS0 CZVgHmUvlunym0htgZd8HF cuNmluOyBt VIRwuL41FQY5iX57Bf42pW ChuSQco8hsuLe3VbQlOCBs DCC1nWehTJvvb2UqNQWxY3 1naCTok1V6 HNTifGkcqFPlDkTxcGH3hR 6lCEeicmtvr3ashlqeIrs5 wa91dXJbd1V9qZA0I0Hhwi P0JKSnxDYh MkdbqGVUdO4xfgjix1zjlt luGhRpNAOuYRi0TTt9AOVa kQkaNuAiOG32VTL6OFHcgo WgU4NvOLZa lTkzRwN7n4H2Uk5VP2PLBg ybB2UDAPJJWUtnxPJ+PC90 dy34P0IrChazVzv3VFLwZS Z6mBC7zY1f JALuKBser4C7wUH4E4Nmcx Sxhj7ve0jiDLSvOTwzC22t oARrw9J2LRRfwQF2WKAbzP jnZiRydL07 Oyc+LEBzfRujh2VjAyffd2 ccs9jtnEn4VvslBVXgymEj eVjeZJU7b6CdQb8xIKSlxD K6lBG1xV0y EdVxExG9FDknR606RfCjuI DvFpmaQ98hW2GihXW+PHRy Cui4EDJrjOimFW2gE8NbWC RpbmctbGVm nZqtZJ9vVZVnlloiIHKxmS 0eSHSlC2w4GuYfBtD2ZZen W6AjIVIltgnnNw19pB9dKw LlHeT7DVwb U9EmjyY5ZVNifWWfHPgyGY Y7T99cf8O2LZGaIKGdOAV2 oQB0lU6oaBqbrkrwaWBtrB sgdmVydGlj JTieCZzdI796JBTtiLtoRr NvZGluZyBEYXRlOiAgMDMv MjkvMjAyMzwvdGQ+PHRkIH K7zFnoFIBk xSCzWXvrOq4dlRtuaJjyTG 4lUBKecvfyFDHjsE5eJKLr lPAkiUlcIQ9pHUJyxalmk5 06BpSnUVU8 ENSxpNHoM1EpwV9uEaThGL OaZOGoI2VqtTKuAPddV591 JQtkQyK1HUUckjChR6OjZA FsaWduOiB0 w0G9Sc2Or8RrtcvkF5UneD WpHuMxFffzEEz2T9SzCuds dHI+HA15BJQgAW28QWq9KI Y2yVpgQSwv UWApA2WvqZ7rLgEiQXHmNZ RkOyc+PHRhYmxlIHdpZHRo QVhkOSFnSeEcuJebFA7wDw 9yZGVyLWNv pVxxcAWmAcZzw8bhNYOwTX kzSS2hwUshE2BumIP0KCXh x2s0Oh57Z63mS3XhmCG+PG IbyML6vLM1 iZ8fPyKeHnO8ICgbL247Xb GfiGQdPdcpd3jik6aomSi0 TgX0NYSdodCywFgtDOI3a0 ZeTf44O72r IHdpZHRoPSIxNSUiIHZhbG huxj1loT0zLg8+PGNvbCB3 lUB1yT2gImDiAoJ8HZgnS2 49InRvcCIv Kxxku7zgs3xoaQh4HjYzDI FvoxJvqFxvZRL4o4MyLw76 K4SmnNjzs1LwCiv8tz68jH Zyv2G4sYZ3 G7IbUVAhmdkaqSCohTjkVO 0fEWCezilqYURxyT1dHCWn H9s3OnHuLyH4TLvaR3Uwea M5GYAnmCUu PATmiFHOoX2etcomh7upoz ntDzOeWZXhETx2TZb1DWKa cPzcKhPfFVL5YwC6IVP0zJ VtrM5xxStc efemuH0sNtj+HYY9fGSjnA FLWU1gNtfnyKH+PHRkIHN0 dBxbVLmcWNSigX5lHZFkE5 u8IpDwSpK7 YMcuF5JjcbE1VUGpmXMrQW IzxVIKlV0exbtex8faugqg QfOnOJNxBQs5ILn0WLVmnF duOiBsZWZ0 CjI3BKQ2vJAbcN4twPwsyv pxvC1kNze+QmlydGggRGF0 KFy4N9GsLau4FCNavFzzYC 0ncGFkZGlu Lj4spIckzJhzOG4hGYCbwx gbw954TlVqz8atZIKdaVOs IXzpJVC0S42ld1K0KJChUJ BySHL7tRH0 uH5kxPldwvqclWUacFdnls OziNhpUDufWUdkU207XRQq yXjhNxPoZNt1D4PlOjc8WA FhoPkeEV9c nVNlFSlfEt6idDusmAboVI 5fTVEazhghz844HgPhv4mw UUPboBFhZEfqQMC5A88er8 H7SHVhFRTs ANP0hYT0cQ4bpIzlbupeiL VmdDsgdmVydGljYWwtYWxp O060WMPthAadPmBxrNm0O3 OnMld9QZIk gAxfMU1saEIxKPcjJv2njU viiNifXD1dTZBrgurmp598 LmBdl2dtTEOkpXDnSVnzDV R5F29kv2J3 DBCaQRShMYU8dPN9gM9mzY lnbjogbGVmdDsgdmVydGlj MUkoYYtbJ273UOLnxCqjGf BhdGllbnQg RKllQIw6S7ToShvswYH+PC 14ZSRmYC06yEAayLNkb9hx zFz9YpViGCMcIQC6fLynHC zfn3OdQNWu A31cnPEiv4Z6SPMpmWlmrO OnCtCjlVD2aT9xSCkwseld x3hrceiiFhybb8fhjb73eX 97M95sGZfb ZHRoPSIzMCUiIHZhbGlnbj 8kdX1eWn0+TWRwqWW7iMN3 tW9nOKAiTaS9LShxI193Sc RvcCIvPjxj q6wfc0ntbOz3BqI5HEFjrv AbeLosMHS3x1GlDv20J68i IHdpZHRoPSIyMCUiIHZhbG ufxe9doH9m Ii8+NNXuaLT1cRF8mR8fLg CbFxC9EZokB731ZtJctYQp OsgnT40xH2OjaJK+PHRyPj b2GGKlrVcz HL1xgWUqUNtoWn3zBCV1Bl IiStSqDPmqX8CwLYZtmjjv dnztwZL8OMLvDVUjjC64Mr 9udDogMTBw eVCPeP5hxrjdw9umcvyfKn SoAJNfMEf7YIc5QHYpeWbn AiIlFUG5FwT4XOQ7uRXdaP 1hbGlnbjog eK4xN1ArBUHuqtpdGo26eM 9gJjUsAuI3ZQwgHib+RFVE RMJuSXDXKLXTJJ4uGlfxtH Q+PHRkIHN0 pIibDBhlQWArjU8nAPIpV8 r3BqSjPoW4DWlqP6AiUXKr lwzwIb16tB3pStUzHrE3SO tlW0UzwoS4 ABCzfRRrNDcfGPC8W03cs5 B5HGJcFCHvXBL8oZI7iZ5t bGlnbjogbGVmdDsgdmVydG ljYWwtYWxp Z669GFKcnKalEgIjAiZ0Ig P1WMO4R2RsRvb6LUXyeOny CP1jqNNxYYihYb2klEyaxK uuRR3yJSOu iegxXAAxqA4lBRKogAOojJ njYG5uMOIdjfrmk089DsVq MNY6JBOtgHCcM0LjxS8jAj AjMDAwMDAw V7DnoMMcRMgtR289THmfEr I1KQMxasHuF8CsJEOpbXun RqA2x1D1Xr15ZtQTAQAmrp wvdGQ+PHRk DMC5iRbmMIbiJBYjuC4yDG UaQ6j7XuUxBjB4XVzrH4Uk GBKmycaaAi95lM1iPgZkHi L9VPyfL7Sw xnR3AEZgaYUsISnhFDJ0T8 8pd7A4WURiWSVhIZV7kKN7 oK2irAuvlktybKFweBzabj VydGljYWwt PFnuS014LJEjbCenDa5wwU K8H8SpKww9MNJgtTqiYR2j kMYxGFwlOh2faGezgSmvAW 4wNTBpbjtw QCJddZ8lNYFirOZpvGagPB 8dMEXjoclbg850UdCxIWB6 JIJiqLVfV4FzsL6aZgGkUH RiCSDeB6Rp sOJjMUvqE054PAneWmA3YC DodjAuX2YiHFVjiVkxHqH6 t9C3Uf5LvXE2dCF8f2I6Y4 NhbWUgRGF5 TWT9vmyzkfc5Z7JfXxpvcX I+LS93BPRqYD48iTZenFKy h6jyiSt4ZtEiEKCkVYX2eX hnECzzy0Uo CQCtG42zdIPhy1H4DQUobB uwgNQmSkJnbKG0hO7nEIqy idfgq1aezxbaPrqjr4uaup 86qR99W01a IHdpZHRoPSIzMCUiIHZhbG nxij4mjF8oId9+PGNvbCB3 iHY7sB4mIsTpRqM9PUliE9 49InRvcCIv Qpgzl0tvx7ghmEy3SoBmQA OyeuYpkTpsQQB5h2ZnYj25 V41yEFvbATYaHNHwSEZwOQ WoqZqsae3b fJ6yOq6+KH8le4fike59xC 48dHI+TWKbCWY1vNxxAVlv IXWubJ4sBAiqKlX9UAYaXr LdeG06yVRh GPqqEa0lfEqqmUavTI7rHV Appskjv427PgLli2hmUSMr nQEhESzdDMW2W32dd2H7YX MwMDAwMDA7 kRK7mD7wdMaedwnyoBWymA vnvsXefYdaUFcjNKsiM292 IELrcEegYcFeyOHaF9zgbe PUZR9iUmjb dGQ+HYXcKAW6dRwuTCwwRS SubI0kXROvS3u3TpMnHlJ9 YNxuV4JtonT3KIBmeDOrQB UmkAYGhY4k brmhz8hizlydMfWkADImCQ l3OTf1ZCOfiBsxReEjIGS9 MgC6ROM4nCJeoE3fiHzjeq pynK1aKhi+ RklOOjwvdGQ+HYYmMCH6vX paXGbeGZXoaG7dRDUqD7u0 YfVyYqX8JGuwA4CclsZ2KX JvbGQgMTBw pYJRvC5dnuaqe1lwkxueDc ThWNIrFVk6JOc9DPWcaKqy VuKcFEX6LfL3PSZ8qQAmjG 1hbGlnbjog fQ5vTjq+TVJOOjwvdGQ+PH EeTWE6jMmyYFroLDLgzL7j FGXfH2v9ChYoGwU4GIsjF7 CxvuA4AIXz uWGmZFYqqVOZkR2wfvzxb8 xbotfcWdXeRZXxLUa7SHj3 RSNhfKmyObLqKAR5SdF5YI Z5cKRzfQ2u zWpqpereaQ0eLsz+UGF5ZX B7RG13ZJ71Q8PxBjqgrBWz bGU+PHRhYmxlIHdpZHRoPS cxMDAlJyBz rXgnVM8o (more content not included)... [facility] Consultation Noteon 12-04-19 Consultation Note [id number]#1.0 0CD:127 [facility] Consultation Note [id number]#1.0 0CD:127 [facility] IntraOperative Documentson 0 12-03-2022 IntraOperative Documents [id number]#1. 00CD:127 [facility] Consent for Anesthesiaon Consent for Anesthesia [id number]#1. 00CD:127 [facility] Consent for Procedure/Surger yon 11-30-2022 Consent for Procedure/Surgery [id number]#1. 00CD:127 [facility] Discharge Instructionson Discharge Instructions [id number]#1. 00CD:127 [facility] IntraOperative Documentson 0 11-30-2022 IntraOperative Documents [id number]#1. 00CD:127 [facility] IntraOperative Documents [id number]#1. 00CD:127 [facility] Main OR Intraoperative Recor don 11-30-2022 Main OR Intraoperative Record IntraOp Document Type FT Summary Primary Physician: Chrissie STILES MD Finalized Date/Time: 11/30/22 12:33:04 Pt. Name: STEVE DE LEON/Sex: 1940 Male Med Rec #: [id number] Physician: Chrissie STILES MD Financial #: [id number] Pt. Type: A Room/Bed: Admit/Disch: 11/29/22 08:02:54 [...] Entry 3 Case Attendee Becky SANABRIA, Av STILES MD, Cornelius Maldonado Role Performed ASSISTANT GROCERY STORE MANAGER Surgeon - Primary MASTER CERTIFIED RV TECHNICIAN/SA Time In 11/29/22 09:49:00 11/29/22 09:49:00 11/29/22 09:49:00 Time Out 11/29/22 10:45:00 11/29/22 10:45:00 11/29/22 10:45:00 Procedure SCROTAL CYST SCROTAL CYST SCROTAL CYST EXCISION(Bilateral) EXCISION(Bilateral) EXCISION(Bilateral) Comments DR AVENDANO SUPERVISING Last Modified By: Michel RN, Aruna Pearson RN, Aruna Murphy RN 11/29/22 10:45:05 11/29/22 10:45:05 11/29/22 10:45:05 Entry 4 Entry 5 Case Attendee Jewels MASTER CERTIFIED RV TECHNICIAN, Aruna Valenzuela RN Role Performed Scrub - Primary Tax Services Intern - Primary Time In 11/29/22 09:49:00 11/29/22 [...] (If Applicable) PreOp Antibiotic Yes Time Out Becky SANABRIA, Av Hernandez, Chrissie STILES MD, Cornelius Mcgill, Jewels MAYEN, Michel Bravo RN, Kimberly Y [...] CYST Primary Procedure Yes Primary Surgeon Chrissie STILES MD Start 11/29/22 10:04:00 Stop 11/29/22 10:40:00 [...] and tissue Entry 1 Skin Integrity Intact, [place], Warm, and Skin Abnormality No Dry Outcomes [...] of inju (more content not included)... Normal [facility] Preoperative Documentson Preoperative Documents [id number]#1. 00CD:127 Normal [facility] Preoperative Documents [id number]#1. 00CD:127 Normal [facility] Consent for Treatmenton 11-08 Consent for Treatment [id number]#1.0 0CD:127 Normal [facility] H&P Updateon 11-29-2022 H&P Update [id number]#1. 00CD:127 Normal [facility] Inpatient Patient Summaryon 11-29-2022 Inpatient Patient Summary [place] [id number] [facility] Clinical Discharge Instructions PERSON INFORMATION Name: [facility] Admitting Physician: Chrissie STILES MD Attending Physician: Chrissie STILES MD PCP: Antoni Cho DO Discharge Diagnosis: Comment: PATIENT EDUCATION INFORMATION Instructions: Post Op Patient Instructions - FT (Custom) (Custom) Medication Leaflets: Follow up: With: Address: When: CHACHA WHALEY [address] [place] [phone] [facility] (1) Comments: Call for followup appointment with Mindi Whaley PA-C or me within the next 2-3 weeks. Should you have problems prior to that visit, please let us know. No shower for two days. Keep scrotal support and ice intermittently for discomfort. Have a great day! Type Location Start Finish State [place] Office Visit [facility] [place] 01/21/2023 10:30 AM 01/21/2023 10:45 AM Confirmed MEDICATION LIST New Medications [id number], [address], [place] [id number], [phone] acetaminophen-hydrocod one (acetaminophen-hydroco done 325 mg-5 mg oral tablet) 1 Tablets By Mouth every 4 hours as needed Pain for 2 Days. Refills: 0. cephalexin (cephalexin 500 mg Cap) 1 Capsules By Mouth every 12 hours for 5 Days. Refills: 0. Medications to Continue with No Changes Other Medications multivitamin (Multi Vitamin+) omeprazole Comment: Ruben [facility] Main OR PACU I Recordon 11-08 Main OR PACU I Record PACU Phase I Docum ent Type FT Summary Primary Physician: Chrissie STILES MD Finalized Date/Time: 11/29/22 11:34:56 Pt. Name: KINGRICHIESTEVE/Sex: 1940 Male Med Rec #: [id number] Physician: Chrissie STILES MD Financial #: [id number] Pt. Type: A Room/Bed: Admit/Disch: 11/29/22 08:02:54 [...] 11:34 Sharon Mosquera RN 11/29/22 11:34 Normal [facility] Main OR Preoperative Recordo n 11-29-2022 Main OR Preoperative Record PreOp Document Type FT Summary Primary Physician: Chrissie STILES MD Finalized Date/Time: 11/29/22 10:13:26 Pt. Name: STEVE DE LEON/Sex: 1940 Male Med Rec #: [id number] Physician: Chrissie STILES MD Financial #: [id number] Pt. Type: A Room/Bed: AS03/ Admit/Disch: 11/29/22 08:02:54 - Institution: Case Times [...] By: Aruna Pearson RN 11/29/22 10:13 Normal [facility] Monitor Recordon 11-29-2022 Monitor Record [id number]#1.0 0CD:127 Normal [facility] Monitor Record [id number]#1.0 0CD:127 Normal [facility] Operative Reporton Operative Report Patient: STEVE DE LEON Age: 81 years Sex: Male : 1940 Associated Diagnoses: None Author: Chrissie STILES MD Postoperative Information Date/ Time: 11/29/2022 10:44:00 Postoperative Diagnosis: Scrotal masses (OGZ43-DN N50.89, Working, Medical). Performed by: Chrissie Stiles MD.. Findings: Procedure: Excision right scrotal masses x2 [...] it well and is transferred to the [place] and then back to PACU in satisfactory condition, stable vital signs. Plan to be for discharge home with plans to follow-up in 2 to 3 weeks in the office. Prescription sent to the pharmacy for [place] and cephalexin. Described all this to the patient's son postoperatively and he is in agreement with the plan. Complications: None. Anesthesia type: General. [facility] Comment on above: Result Comment: Elec tronically Signed By: Chrissie STILES MD\.br\Date and Time Signed: 11/29/22 10:50 EDT Outpatient Surgery Discharge Instructionon 11-29-2022 Outpatient Surgery Discharge Instruction [place] [id number] Patient Discharge Instructions PERSON INFORMATION Name: KINGQUIN QUIROZISAAC Mckeon Date of : 1940 Current Date: 11/29/2022 10:49:23 PHYSICIANS Admitting Physician: Chrissie STILES MD Discharge Diagnosis: STEVE DE LEON has [...] THE NEAREST EMERGENCY ROOM OR CALL 911 IHALEY STEPHEN J, have received the attached patient education materials/instructions and have verbalized understanding: May we do a follow up call? Yes No I was present when discharge instructions were given Patient Signature Date Clinican/Nurse Signature ___ Date Follow up: With: Address: When: CHACHA WHALEY [address] [place] [id number] [facility] (1) Comments: Call for followup appointment with Mindi Whaley PA-C or me within the next 2-3 weeks. Should you have problems prior to that visit, please let us know. No shower for two days. Keep scrotal support and ice intermittently for discomfort. Have a great day! Type Location Start Finish State [facility] Office Visit [facility] [place] 01/21/2023 10:30 AM 01/21/2023 10:45 AM Confirmed Pharmacy Information: You may receive a survey from [employer] asking you to rate your care experience. Your feedback is important and will help us understand what we do well and how we can improve the quality of care we provide to you, your loved ones and our community. It?s an honor to serve you. Thank you for choosing [facility] HERE ARE THE MEDICATION CHANGES THAT OCCURRED DURING YOUR HOSPITAL STAY New Medications [id number], [address], [place] [id number], [phone] acetaminophen-hydrocod one (acetaminophen-hydroco done 325 mg-5 mg oral tablet) 1 Tablets By Mouth every 4 hours as needed Pain for 2 Days. Refills: 0. cephalexin (cephalexin 500 mg Cap) 1 Capsules By Mouth every 12 hours for 5 Days. Refills: 0. Medications to Continue with No Changes Other Medications multivitamin (Multi Vitamin+) omeprazole PATIENT EDUCATION INFORMATION Instructions: Medication Leaflets: Normal [facility] Patient Education - Texton 0 11-29-2022 Patient Education - Text Normal [facility] Progress Note-Physicianon Progress Note-Physician Patient: STEVE DE LEON Age: 81 years Sex: Male : 1940 Associated Diagnoses: None Author: Meek Avendano MD Postoperative Information Postoperative disposition: Postoperative disposition: To PACU. Optimetrix number: Optimetrix number [id number]. Anesthetic utilized: General. Physical Examination Vital Signs [...] Surgery Unit, and To home ). Normal [facility] Comment on above: Result Comment: Elec tronically Signed By: Lauryn POTTS, Meek López\.br\Date and Time Signed: 11/29/22 20:15 EDT Progress Note-Physician Patient: STEVE DE LEON Age: 81 years Sex: Male : 1940 Associated Diagnoses: None Author: Lauryn POTTS, Meek López Preoperative Information Anesthesia Preop Info: Time patient [...] Problems Asymptomatic microscopic hematuria / SNOMED CT 7338475727 / Confirmed Benign localized prostatic hyperplasia with lower urinary tract symptoms (LUTS) / SNOMED CT 9511150525 / Confirmed BPH with obstruction/lower urinary tract symptoms / SNOMED CT 7999581357 / Confirmed Gross hematuria / SNOMED CT 424922119 / Confirmed BRITTANY (obstructive sleep apnea) / SNOMED CT 585240308 / Confirmed Renal cyst / SNOMED CT 3927945928 / Confirmed Scrotal mass / SNOMED CT 13646622 / Confirmed, Active Problems (7) Asymptomatic microscopic [...] in all extremities. Gastrointestinal: Soft, Non-tender. Plan [place] [employer] Anesthesiologists (ASA) physical status classification: Class II. Anesthetic Preoperative Plan: Anesthesia General. Normal [facility] Comment on above: Result Comment: Elec tronically Signed By: Lauryn POTTS, Meek Ayers.br\Date and Time Signed: 11/29/22 08:44 EDT Coding Summary.on 11-27-2022 Coding Summary. [id number] Gh 0bWw+PGhlYWQ+UC9RYNFnH 86tyMRetQ9zH7OOWBbNUyj aSBSANLkKBuZqukMkUM1bb XNjZXJu IC8+KU7lFUHwXfrvwABtt8 I9dPI5M08oib2fRRmgxWT8 CBUgOnXftdhyl0bxcIk6FZ cuNmluOyBt QIBynM87AOC1uL22Pg60wX BkmGKxm1itpFx7DrJdLEGe MXT8sTynIWfxc5HbCVMfK8 8hhKCne7Y0 YVYifCdooYAfSgQudKH8iP 0xCUdzikmhr8rsrpqlCmg1 bz40oJNlh0N9eOF0M6Givu Y4BVDxrOQd OcdkhBGXoL4zjayte2bgqw iaKgVkRTWzJXs7EBl0KXTb aAniSyBeYZ11YSW4SAEohh PeI4TcQSPx hHpmXyE1v5O1Uf1DL8CLQh hlP4GSFLBQLNpxwTM+PC90 vz90N0BlTloeFdk5QTNgAU S1sQY9wL3h RIMhHRobm2F9fSX2X4Jwom Qyzx5pi4vsTZFcSIzzU54b vEPsv0C9YFVdfWQ9BPNjgM oaDyHusX32 Oyc+MPDwtJqlm3NsVddio3 acq6ugdHj0MwtzKCBgmnSi kYcfEHZ5b4HyMl2sHVMskS I3uTR5uT6l HnZeDgP1NCyfL666FzLskR EjEhsiQ93yQ9ZiiRC+PHRy Bai4JQIxoIsbVG4dJ9ZrBY RpbmctbGVm mYupOT2jHXDvwlnzRVEgjG 9yGJVaR7c3RdYjVoA7DZya Y9HhFBDgumxtCy92kR6vJj PcHrN0ABtb O0SovgX9EXWxyXHnLHtfWE W8L52fe7M4HWRqBNFqJSI0 bHD9nP8bnVwwemufiYNvtV sgdmVydGlj LJrvNRafT049MYCikOndTa NvZGluZyBEYXRlOiAgMDMv MjEvMjAyMzwvdGQ+PHRkIH Y9oBurTSYw mVTlMLqhQh2kzCvdkFizYK 2oTVVhpsrrETTegI8eALWu hYLklDpgWE9dHHWkgxwyx3 21HlOvOWH7 VKMbdJMaR6WdzO9lZyEpTJ XpOIUmX3UbwMHqNKybN905 KUahEbD4DPHoxnSdW8VkPK FsaWduOiB0 v7I8Mi6Ih9JzvlljG8GnbQ RwFxNgXncjTQe3N1FqXcyz dHI+OE73VVBkSA60ZNk7GV A8jJdvZZad KFGwV8RxgN1uVlJqFRSdDD RkOyc+PHRhYmxlIHdpZHRo JYqfXEInXvPvyDxfZE7vIh 9yZGVyLWNv yTemgCUeDsJux5vfQAFoDE kxCX9zwEteZ2RfqPF4OAXz b0y6Fa32P42zG0KdhOZ+PG AktXM2aXU2 cO9vCjHpBoZ4AFhaE286Bo SkcGPeZfksp8dbz3vzcIn7 AvA2PJZukjTtsSigQWK4v3 XcXh64E18p IHdpZHRoPSIxNSUiIHZhbG hsva5ulA2qLm3+PGNvbCB3 hUS5eG9oRpEzTeB6QNjyL9 49InRvcCIv Fowil5nhl8cgaMw3QwWuZA LcniYqcJayDUU7s6UqVc11 E0WqaXadi7XjCgs8ni98wC Kcm8I4sGR2 J8NjDPXcfecoqUXopEguDR 9vXEBkvjyzPKAbxR1iVNDn P6s6VsLzXfW4WUfiH4Ixsr E6XLXkhYJh XBUqxAWGkO1vkaoai1yipk qjNyEqWLNxPTw5RWr8YQCo aUfaXkWsDZO1MhB7LGK5vM SmuR1ywCac yrewvB3yWdm+XNA4kKJpvZ DMBX4oHhzzgPV+PHRkIHN0 gScmGEzhHEZjgA1eNWXiH7 b4LnGqIfZ0 TEpjB5QgroR2NCGljORcDT PnpFDXvZ0zekxmp9fvxvrr FoWdWEStICz5LQx3UTJjxJ duOiBsZWZ0 VhF3QVM0iYJhzJ8riNfljx vbsQ1iRms+QmlydGggRGF0 VIg0U6YvNhw2REVkcQaoPL 0ncGFkZGlu Xd4wrPxmgLbePX1lZJRmbp jjb700AwYpv5ixSRKskJSf QPmjROP5X03pa8T8IXBdRF QdGBZ7lRG5 bW7bhOkamtvhvTWbbBibgf SqjUlmQWhxABuvY515ZGGc cFnwHjVnRMt1V4RdLla6HR VwcNtgCG5n bNDvLNbkZe6qoCwnzKrsTZ 0zSFWbimgok007YoJtp8in EZMhpUXmUJarQBJ9L00ij5 V7ABFmLKPi NXK5cUV6jA1bkEsupghzvS VmdDsgdmVydGljYWwtYWxp Y316ENIowLyhZtIqhSq7V3 QhCpv0OOAl bCilOY3neEFvRVavYh0psJ mjxVxqUX5wSBZemmgow230 XoDrj9ybIMDwdPKoXYsnJJ N6X51gd4Y9 GVFiGLIpIJP9sKC0pG7hlY lnbjogbGVmdDsgdmVydGlj UAgbNHvbX507JBAczVlePl BhdGllbnQg TGdaPOx5P1VbAeswqQW+PC 71IGOkZM42aLHyqVKah6ll hEf1ExAePYRdITO0sGnvTV jfd4UrZKQz L55imWXsg8G7ZPCaxNnpmD NlRrBqlLS1oV2gHPwdapdc p2gkigdyQiaes1mgvk16tW 29F89bLQlb ZHRoPSIzMCUiIHZhbGlnbj 8foN7nYq3+WJWhwJQ6zFT2 nW7vZPGmSpO9SNlgM502Ms RvcCIvPjxj l5dfu0knxFm9GpK8YHJhfv XdpVikZWZ4r6OpCn69Z91a IHdpZHRoPSIyMCUiIHZhbG exwx5ooA5g Ii8+UVQxhBJ4pLA9nI2qWe ImXlJ4SPbrH462AgAlbVCu MpftR16dE1EmuXM+PHRyPj p2SOFtcTal DR2pbFHhSIowCb9xSYR1Vs MqXvKuUIhvF4XzVHHdjihs fpcevHT0ZEGjYDCgqA32Ga 9udDogMTBw kDFGfF0tdrgnr3iwkpnsVf SqKDFzAUu1EDg8PDMcsQyw UoUvYKY7CvL8KRH5wDSgzH 1hbGlnbjog vI6fL5DgUEPemdrmMo40iS 1pNgZvGaW3KHpxHwh+RFVE KNLmAXHMOVJHGV9vBvmejC Q+PHRkIHN0 dMwsSCrrTSVmlZ5dNJImP3 f8MrOrSaX1RBgcJ3SsNBRt fwtwHo45rY2pMhAvLaI0JC lfL1TilxE6 HVHvpUPmYSncGDL9V46my9 J7ZKJqTPDeBUC7kVD0oQ5s bGlnbjogbGVmdDsgdmVydG ljYWwtYWxp D516CKDvaFkvKySuLqF1Pn D8JRO0U9EhLop1RAMcyJvh FU2xrYZqJEtvRn8qtNlxkT jrMX5jCLJq gusdZYVvfV0qKNKudCXkfF amBH2aBLPehfnyg594HiXc KQO0CRMpxZZeH2TdyL9cGn AjMDAwMDAw O6BvmIUyGVkfN373IChiMg C2JJPqkfDsH9HgHTZylPqp MjZ8c1V8Bv52GAKHWCDumn wvdGQ+PHRk SUV8yQigKTujZWJuwQ5aMF FyQ7r7PwDjVaN7ZMaoW0Lf OOAhnsipYa30pU7lMyZmSc J0RLwiE2Xg ebV5VNYstLDaBSzwEUK5R7 8ov0T9SNVrPSXiZCE3eOU7 pC5veIhapwsrgWXecMwgir VydGljYWwt DGauW746JZDmiQitQy1xbV F5L5NfCzz1EKCrgHamLS2h dNLmRItbGd5lwZwfiXlyXI 4wNTBpbjtw HMHdrB3pMMNwlEWihHkuZR 0oWDTbahooh491BoMiNHU9 SCTcnRTqZ2AnnK7hEqDuZF VpLVMzR1Wh hVBsLQkpI962KFqcKwI7KJ GimrNkC0JeRFOimYgyFsX2 m9I4Ci3PdUIfCQRbYS83KH 41TH24W1Uu PjwvdGFibGU+PHRhYmxlIH dpZHRoPScxMDAlJyBzdHls GJ5iSn2vYROzPCYdvAdnbH QqCmSxi6em POLqZZacUX4nbQplG2AsmU H5SEUff3f6Yy65Y31gH3Fe dXA+EUJzaWU0mZF6gL9cXd UmFhO0OCll J682VsFowBQqNbxyp0cwx8 vxjEv0WmVgWPVsghTotSyg IZK7e0TrRv95E86wRRfeZA RoPSIyMCUi WYWetVgmgy7vqF6mFd0+PG JhvBX6oKF9gS0iVlUkEqD0 VQzeS836ShJtiFLkKnycX3 9kX9HgfFF+ DXFrYmz5BISfwLukTA1naB BaZNxxAr8cUZG4KjOkRvKz AYcmM1QiJBWkbetsglojfC E3EMDdQBZb cG13Sb9dbSinDs5pNQOcTP Q0SIMedBSzE2MatP6eGtWe PHIaASFzQ9BhpCYuMEgjS8 23UAbxGbK4 CUOyqqBdP4PwNYCohZdqLq J9w4E5Xl9ReRtuoNDzPV3o HjIdJNy1V5NbApy3GQHpkG uzOK8eyDLh YBolMc2aaXhmiNjiBH8wFS Fscgyuz955BiHiv1quMSKn tSYwMWoxRWD5E56jb9F1VR MwMDAwMDA7 aPY5mB6ygNtozlmohXVwpR zlwcQleFzlGXxhHVoaM565 RBFshBfzChOUGno1I5FnBr t1LJTdeMgo DP5xtBXyIWlqWf0pnSryzQ hnAL7yFIClzjfyr054MsHq l1wlRCSvtAEbNEvfMAL8Y3 0wm7T4DJKm DXAsRPR9xZC1yQ1gfHnngt ogbGVmdDsgdmVydGljYWwt TGtnO337SODzyAcjCh3GCz g9R1JcQoy6 VVSvnFnxBY4nkXVlVWgvQs 3psJxbbJdrSM9xEUIjeisx n385EvKou4sbEFJwtRToGC paRSJ2Z97b z1W4YSZgYLNmJXS4aLB8fZ 1hbGlnbjogbGVmdDsgdmVy sZpwQDlzUYvaT611VWZqbP snPlBheWVy OjwvdGQ+KY62bi13O2BwEr ioQia1BTFfROH1uTS6eM1i YDMoRFxjd0W2lNT6E0Uhkc Trgq9fo4fd YXBz (more content not included)... Normal [facility] Outside Recordson 11-27-2022 Outside Records [id number]#1. [id number]:127 Normal [facility] Office Visit (Cardiology)on 11-21-2022 Follow-up visit [...] up in 1 year. Retrieve stress from [facility] The provider reviewed the following test(s) and result(s) with the patient: ECG Risk Assessment Studies: Surgical Clearance:1 STEVE DE LEON is cleared to proceed with surgery1 . 1 Amended By: Mely De Oliveira; Nov 21 2022 11:05 AM ESTChief Complaint STEVE DE LEON is being seen for POC Dr. Stiles Scrotal xploratory, remove lipomas. 81-year-old white male who was sent to me by Dr. Stiles for cardiac clearance prior to removal of lipoma from the scrotum. Presurgical testing revealed left axis deviation on EKG. The patient has no previous cardiac history but he tells me that he had at least 4 stress test in the last several years the last of which was in [facility] 2 and half years ago which was [...] I will retrieve the stress test from [facility]. Patient is considered low risk for the [...] Vital Signs Recorded: 21Nov2022 10:36AMRecorded: 21Nov2022 10:34AM Yluuosde607, LUE, Zfjpupj279, RUE, Sitting Waszskflg67, LUE, Kbhvxij64, RUE, Sitting Heart Rate67, Apical Height5 ft 7 in Lqcffj239 lb BMI Aonxxlcydc76.98 kg/m2 BSA Calculated1.96 Tobacco Useb) No PHQ-2 [...] no masses (more content not included)... Normal [employer] Tobacco Screening.on 023 Adult depression screening assessment No [facility] 250 DO Work Phone: Fall risk assessment a) No falls within the last year -[facility] 250 DO Work Phone: Tobacco use status [facility] b) No -[facility] 250 DO Work Phone: Auto Diffon 11-16-2022 Basophils/100 WBC (Bld) 0.0 % Normal 0.0-2.0 [facility] Comment on above: Order Comment: Order Added by Discern Expert. Performed By: #### 2 053345, 75091120, 4109375, 70705254, 7345071 ####[facility] [address] [place] [address] Basophils/Leukocytes Auto (Bld) [Pure # fraction] 0.0 E9/L Normal 0.0-0.2 [facility] Comment on above: Order Comment: Order Added by Milady Expert. Performed By: #### 2 626343, 70684959, 0582656, 89032098, 0881196 ####[facility] [address] [place] [address] Eosinophils/100 WBC (Bld) 6.6 % Normal 0.0-8.0 [facility] Comment on above: Order Comment: Order Added by Milady Expert. Performed By: #### 2 402040, 89207952, 8695192, 80779095, 5435648 ####[place] [address] [place] [address] Eosinophils/Leukocyte s Auto (Bld) [Pure # fraction] 0.3 E9/L Normal 0.0-0.5 [facility] Comment on above: Order Comment: Order Added by Milady Expert. Performed By: #### 2 970196, 92153699, 8587595, 52542996, 6122590 ####[facility] [address] [place] [address] Lymphocytes/100 WBC (Bld) 34.7 % Normal 14.0-50.0 [facility] Comment on above: Order Comment: Order Added by Milady Expert. Performed By: #### 2 990810, 37678530, 4226612, 98997481, 6667405 ####[place] [address] [place] [address] Lymphocytes/Leukocyte s Auto (Bld) [Pure # fraction] 1.7 E9/L Normal 1.0-4.0 [facility] Comment on above: Order Comment: Order Added by Discern Expert. Performed By: #### 2 165020, 57183596, 7211217, 84442158, 5857901 ####[address] [address] Monocytes/100 WBC (Bld) 11.5 % Normal 4.0-14.0 [facility] Comment on above: Order Comment: Order Added by Discern Expert. Performed By: #### 2 848040, 56765862, 5503112, 94244645, 8934347 ####[address] [address] Monocytes/Leukocytes Auto (Bld) [Pure # fraction] 0.6 E9/L Normal 0.2-1.0 [facility] Comment on above: Order Comment: Order Added by Discern Expert. Performed By: #### 2 636507, 29597447, 6741626, 73306077, 7818334 ####[address] [address] Neutrophils/100 WBC (Bld) 47.2 % Normal 36.0-75.0 [facility] Comment on above: Order Comment: Order Added by Discern Expert. Performed By: #### 2 547024, 47152103, 6493560, 55794860, 8005431 ####[address] [address] Neutrophils/Leukocyte s Auto (Bld) [Pure # fraction] 2.3 E9/L Normal 2.0-7.5 [facility] Comment on above: Order Comment: Order Added by Discern Expert. Performed By: #### 2 726436, 41695844, 9533246, 82059302, 7972578 ####[address] [place] [address] BMPon 11-16-2022 Anion gap [Moles/Vol] 9 mmol/L Normal 6-16 [facility] Comment on above: Performed By: #### 2 355630, 08253701, 3767922, 81303314, 3970203 ####[facility] [address] [place] [address] Calcium [Mass/Vol] 9.1 mg/dL Normal 8.9-11.1 [facility] Comment on above: Performed By: #### 2 664672, 16297548, 5786686, 22195078, 9384481 ####[facility] [address] [place] [address] Chloride [Moles/Vol] 105 mmol/L Normal 101-111 [facility] Comment on above: Performed By: #### 2 657660, 30561702, 6631069, 66553827, 9737155 ####[facility] [address] [place] [address] CO2 [Moles/Vol] 29 mmol/L Normal 21-31 [facility] Comment on above: Performed By: #### 2 390519, 06974318, 4119973, 44842225, 7008931 ####[facility] [address] [place] [address] Creatinine [Mass/Vol] 1.1 mg/dL Normal 0.5-1.3 [facility] Comment on above: Performed By: #### 2 907597, 55687889, 5314505, 00460306, 1806922 ####[facility] [address] [place] [address] Glucose [Mass/Vol] 73 mg/dL Normal 55-199 [facility] Comment on above: Result Comment: If t his glucose result represents a fasting glucose, interpretation should refer to the following reference range: 55-99 mg/dL Performed By: #### 2 655225, 17205393, 3363561, 78922920, 9520076 ####[facility] [address] [place] [address] Potassium [Moles/Vol] 4.1 mmol/L Normal 3.5-5.3 [facility] Comment on above: Performed By: #### 2 903528, 59526260, 5223827, 11205562, 6023016 ####[facility] [address] [place] [address] Sodium [Moles/Vol] 139 mmol/L Normal 135-145 [facility] Comment on above: Performed By: #### 2 734557, 91948172, 7029358, 46416391, 7797359 ####[facility] [address] [place] [address] Urea nitrogen [Mass/Vol] 23 mg/dL High 5-21 [facility] Comment on above: Performed By: #### 2 428603, 69650048, 5445250, 52564179, 0711082 ####[facility] [address] [place] [address] Urea nitrogen/Creatinine [Mass ratio] 21 No Units High 10-20 [facility] Comment on above: Performed By: #### 2 189957, 77223499, 0290321, 18057757, 0848325 ####[facility] [address] [place] [address] CBC w/ Auto Diffon Erythrocyte distribution width (RBC) [Ratio] 13.6 % Normal 10.9-14.2 [facility] Comment on above: Performed By: #### 2 572468, 61933552, 4921478, 90800078, 4952850 #### [facility] [address] [place] [address] Hematocrit (Bld) [Volume fraction] 43.3 % Normal 37.7-49.0 [facility] Comment on above: Performed By: #### 2 504750, 35740558, 4727449, 03894983, 7446841 #### [facility] [address] [place] [address] Hemoglobin (Bld) [Mass/Vol] 14.1 g/dL Normal 13.5-17.5 [facility] Comment on above: Performed By: #### 2 574128, 60919806, 2452777, 00250409, 6579257 #### [facility] [address] [place] [address] MCH (RBC) [Entitic mass] 31.8 pg Normal 27.0-34.0 [facility] Comment on above: Performed By: #### 2 728695, 48791775, 0118906, 73207687, 1784383 #### [facility] [address] [place] [address] MCHC (RBC) [Mass/Vol] 32.6 g/dL Normal 31.4-36.0 [facility] Comment on above: Performed By: #### 2 248179, 79832164, 8700123, 43385572, 9798966 #### [facility] [address] [address] MCV (RBC) [Entitic vol] 97.3 fL Normal 80.0-100.0 [facility] Comment on above: Performed By: #### 2 586811, 26112225, 1958362, 03077740, 7547740 #### [facility] [address] [place], [place] [address] Platelet mean volume (Bld) [Entitic vol] 8.1 fL Normal 6.4-10.8 [facility] Comment on above: Performed By: #### 2 676458, 10568182, 7521351, 31741932, 0665132 #### [facility] [address] [place] [address] Platelets (Bld) [#/Vol] 215.0 E9/L Normal 150.0-500.0 [facility] Comment on above: Performed By: #### 2 [id number], [id number], [id number], [id number], [id number] #### [facility] [address] [id number] RBC (Bld) [#/Vol] 4.4 E12/L Normal 4.3-5.9 [facility] Comment on above: Performed By: #### 2 [id number], [id number], [id number], [id number], [id number] #### [facility] [address] [place] [address] WBC corrected for nucl RBC Auto (Bld) [#/Vol] 5.0 E9/L Normal 4.0-11.0 [facility] Comment on above: Performed By: #### 2 [id number], [id number], [id number], [id number], [id number] #### [facility] [address] [place] [address] CHEMISTRYOrdered By: SYSTEM SYSTEM on 11-16-2022 Anion gap [Moles/Vol] 9 mmol/L Normal 6 - 16 mEq/L [facility] Calcium [Mass/Vol] 9.1 mg/dL Normal 8.9 - 11. 1 mg/dL [facility] Chloride [Moles/Vol] 105 mmol/L Normal 101 - 1 11 mmol/L [facility] CO2 [Moles/Vol] 29 mmol/L Normal 21 - 31 mmol/L [facility] Creatinine [Mass/Vol] 1.1 mg/dL Normal 0.5 - 1.3 mg/dL [facility] Remisol GFR/1.73 sq M.predicted among blacks MDRD (S/P/Bld) [Vol rate/Area] mL/min/1.73 m2 Normal >=59mL/min/ 1.73 m2 [facility] Chem S GFR/1.73 sq M.predicted among non-blacks MDRD (S/P/Bld) [Vol rate/Area] mL/min/1.73 m2 Normal >=59mL/min/ 1.73 m2 [facility] Chem S Glucose [Mass/Vol] 73 mg/dL Normal 55 - 199 mg/dL [facility] Potassium [Moles/Vol] 4.1 mmol/L Normal 3.5 - 5.3 mmol/L [facility] Sodium [Moles/Vol] 139 mmol/L Normal 135 - 145 mmol/L [facility] Remisol Urea nitrogen [Mass/Vol] 23 mg/dL High 5 - 21 mg/dL [facility] Remisol Urea nitrogen/Creatinine [Mass ratio] 21 mg/mg [...] Treatmenton 11-07 Consent for Treatment [id number]#1.0 0CD:127 Normal [facility] HEMATOLOGYOrdered By: SYSTEM SYSTEM on 11-16-2022 Basophils/100 WBC (Bld) 0.0 % Normal 0.0 - 2.0 % [facility] HemeAutoSS Basophils/Leukocytes Auto (Bld) [Pure # fraction] [...] 5.0 E9/L Normal 4.0 - 11.0 E9/L [facility] HemeAutoSS PT & PTTon 11-16-2022 aPTT Coag (PPP) [Time] 33.2 second(s) Normal 25.1-36.5 [facility] Comment on above: Result Comment: Para meter 15 days - 4 weeks 1 - 5 months 6 - 11 months 1 - 5 years 6 - 10 years 11 - 17 years PTT Mean: 35.4 (27.6-45.6) Mean: 33.5 (24.8-40.7) Mean: 32.4 (25.1-40.7) Mean: 31.6 (24.0-39.2) Mean: 31.6 (26.9-38.7) Mean: 31.0 (24.6-38.4) Pediatric Reference ranges were obtained from a study by fermin Hughes al. prepared from 1437 samples obtained at 7 different centers using the same coagulation reagent and instrumentation as [facility]. Currently there are no coagulation studies available worldwide for children to 14 days, and no normal ranges. Heparin therapeutic range (represented by Anti-Factor Xa activity of 0.2 - 0.4 U/mL) corresponds to PTT of 56.6 - 109.0 sec. Performed By: #### 2 [id number], [id number], [id number], [id number], [id number] #### [facility] [address] [place] [address] INR Coag (PPP) [Relative time] 1.1 {INR} Invalid Interpretation Code [facility] Comment on above: Result Comment: INR results are specifically intended to assess patients stabilized on long-term Anticoagulation therapy suggested INR?s ?Less Intensive Anticoagulation? 2.0 ? 3.0 Conventional Range 3.0 ? 4.5 Performed By: #### 2 [id number], [id number], [id number], [id number], [id number] #### [facility] [address] [place] [address] PT Coag (PPP) [Time] 12.6 second(s) High 9.4-12.5 [facility] Comment on above: Result Comment: 15 d ays - 4 weeks 1 - 5 months 6 -11 months 1- 5 years 6-10 years 11 -17 years Mean: 11.2 (9.5-12.6) Mean: 11.0 (9.7-12.8) Mean: 11.0 (9.8-13.0) Mean: 11.3 (9.9-13.4) Mean: 11.7 (10.0-14.6) Mean: 11.8 (10.0 - 14.1) Pediatric Reference ranges were obtained from a study by fermin Hughes al. prepared from 1437 samples obtained at 7 different centers using the same coagulation reagent and instrumentation as [facility]. Currently there are no coagulation studies available worldwide for children to 14 days, and no normal ranges. Performed By: #### 2 [id number], [id number], [id number], [id number], [id number] #### [facility] [address] [place] [address] UA With Cult Reflexon 2022 Bacteria LM Ql (Urine sed) TRACE Normal Trace [facility] Comment on above: Performed By: #### 1 [id number] ####[facility] [address] [place] [address] Bilirubin Ql (U) Negative Normal Negative [facility] Comment on above: Performed By: #### 1 [id number] ####[facility] [address] [place] [address] Clarity (U) CLEAR Normal Clear [facility] Comment on above: Performed By: #### 1 [id number] ####[facility] [address] [place] [address] Color (U) YELLOW Normal Yellow [facility] Comment on above: Performed By: #### 1 [id number] ####[facility] [address] [place] [address] Epithelial cells.squamous LM.HPF (Urine sed) [#/Area] 0-2 Normal 0-2 [facility] Comment on above: Performed By: #### 1 [id number] ####[facility] [address] [place] [address] Glucose Test strip (U) [Mass/Vol] Negative Normal Negative [facility] Comment on above: Performed By: #### 1 [id number] ####[facility] [address] [place] [address] Hemoglobin Ql (U) Negative Normal Negative [facility] Comment on above: Performed By: #### 1 [id number] ####[facility] [address] [place] [address] Ketones (U) [Mass/Vol] Negative Normal Negative [facility] Comment on above: Performed By: #### 1 [id number] ####[facility] [address] [place] [address] Pima.plasma/Lithiu m.RBC (Bld) [Mass ratio] 0-3 Normal 0-3 [facility] Comment on above: Performed By: #### 1 [id number] ####[address] [address] Nitrite Ql (U) Negative Normal Negative [facility] Comment on above: Performed By: #### 1 [id number] ####[address] [address] pH (U) 7.5 [pH] Invalid Interpretation Code 5.0-9.0 [facility] Comment on above: Performed By: #### 1 [id number] ####[address] [address] Protein (U) [Mass/Vol] Negative Normal Negative [facility] Comment on above: Performed By: #### 1 [id number] ####[address] [address] Specific gravity (U) [Rel density] 1.020 Invalid Interpretation Code 1.005-1.030 [facility] Comment on above: Performed By: #### 1 [id number] ####[address] [address] Type of Urine collection method Clean Catch Normal [facility] Comment on above: Performed By: #### 1 [id number] ####[address] [address] Urobilinogen Qn (U) 0.2 {Jaleel'U}/dL Normal 0.0-1.0 [facility] Comment on above: Performed By: #### 1 [id number] ####[address] [address] WBC Auto Ql (U) Negative Normal Negative [facility] Comment on above: Performed By: #### 1 [id number] ####[address] [address] WBC LM.HPF (Urine sed) [#/Area] 0-5 Normal 0-5 [facility] Comment on above: Performed By: #### 1 [id number] ####[address] [place] [address] URINALYSISOrdered By: Jayme Ramirez on 11-16-2022 Bacteria [...] AM) Normal Negative [facility] UA Auto SS Pima.plasma/Lithiu m.RBC (Bld) [Mass ratio] 0-3 /HPF Normal [...] AM) Invalid Interpretation Code 1.005 - 1.030 [facility] UA Auto SS UA Spec Desc Clean Catch (11/16/22 9:55 AM) Normal [facility] UA Auto SS Urobilinogen Qn (U) 0.5010654 {Jaleel'U}/dL Normal 0.0 - 1.0 EU/dL [facility] UA Auto SS WBC Auto Ql (U) Negative (11/16/22 9:55 AM) Normal Negative [facility] UA Auto SS WBC LM.HPF (Urine sed) [#/Area] 0-5 /HPF Normal 0-5/HPF [facility] UA Auto SS XR Chest 2 Viewson [...] mGy = na DAP = na Normal [facility] eGFRon 11-16-2022 GFR/1.73 sq M.predicted among blacks MDRD (S/P/Bld) [Vol rate/Area] mL/min/{1.73_m2} Normal >=59 [facility] Comment on above: Order Comment: Order added by Discern Expert. Result Comment: eGFR is race adjusted. AA=. Performed By: #### 2 [id number], [id number], [id number], [id number], [id number] ####[facility] [address] [place] [address] GFR/1.73 sq M.predicted among non-blacks MDRD (S/P/Bld) [Vol rate/Area] mL/min/{1.73_m2} Normal >=59 [facility] Comment on above: Order Comment: Order added by Discern Expert. Result Comment: Automation Controls Specialist jarred kidney disease could be indicated at eGFR's of less than 60 mL/min/1.73m2. Kidney failure is indicated at less than 15 mL/min/1.73m2. Performed By: #### 2 [id number], [id number], [id number], [id number], [id number] ####[facility] [address] [place] [address] RAD - Ultrasound Reporton RAD - Ultrasound Report [id number] 0CD:127 Normal [facility] US SCROTUMon 10-17-2022 US SCROTUM EXAM: [...] by: JERMAIN BROWN Date: 2022-10-17 15:11 Normal [facility] Screenson 10-10-2022 Screens [id number] 0CD:127 Normal [facility] Patient Educationon 10-09-19 23 Patient Education Urology [...] Follow these instructions at home: ? Take dkif-ftl-asgnmhg and prescription medicines only as told by [...] You d (more content not included)... Normal [facility] Urology Office/Clinic Noteon 10-09-2022 Urology Office/Clinic [...] their recurrence. Follow-up With When Contact Information ASHLEIGH POTTS, Chrissie Bradley, URL [address] [place] [phone]- Additional Instructions: Patient Education Benign Prostatic Hyperplasia I, Lela Cifuentes, personally scribed for Dr. Stiles on 10/09/2022 16:10:16. . Documentation recorded by the scribLela oswald, accurately reflects the services(s) I performed and decisions made by me. Authenticated by Dr. Stiles on 10/09/2022 16:58:19. Problem List/Past Medical History [...] vax 10/ (more content not included)... Normal [facility] Comment on above: Result Comment: Elec tronically Signed By: Chrissie STILES MD\.br\Date and Time Signed: 10/09/22 17:01 EST\.br\Electronically Co-Signed By: Lela Cifuentes\.br\Date and Time Co-Signed: 10/09/22 16:[address] ABD/PELV W CONon 12-03-19 CT ABD/PELV W CON HISTORY: Juan hematuria [...] KINA MAHMOOD Date: 2021-12-02 08:29 Normal [facility] CBC AUTO DIFFon 11-22-2021 BASO # 0.0 103/ul Normal 0.0-0.1 [facility] Comment on above: Performed By: #### C BC #### [facility] [address] [place] [address] Dr. Ever Kenny Basophils/100 WBC (Bld) 0.2 % Normal 0.2-2.0 [facility] Comment on above: Performed By: #### C BC #### [facility] [address] [place] [address] Dr. Ever Kenny EO # 0.3 103/ul Normal 0.0-0.7 [facility] Comment on above: Performed By: #### C BC #### [facility] [address] [place] [address] Dr. Ever Kenny Eosinophils/100 WBC (Bld) 5.5 % Normal 0.9-7.0 [facility] Comment on above: Performed By: #### C BC #### [facility] [address] [place] [address] Dr. Ever Kenny Erythrocyte distribution width (RBC) [Ratio] 12.8 % Normal 11.0-15.0 [facility] Comment on above: Performed By: #### C BC #### [facility] [address] [place] [address] Dr. Ever Kenny Hematocrit (Bld) [Volume fraction] 47.1 % Normal 42.0-54.0 [facility] Comment on above: Performed By: #### C BC #### [facility] [address] [place] [address] Dr. Ever Kenny Hemoglobin (Bld) [Mass/Vol] 15.2 g/dL Normal 14.0-18.0 [facility] Comment on above: Performed By: #### C BC #### [facility] [address] [place] [address] Dr. Ever Kenny IG # 0.03 10e3/ul Normal 0.00-0.03 [facility] Comment on above: Performed By: #### C BC #### [facility] [address] [place] [address] Dr. Ever Kenny IG % 0.5 % Normal 0.0-0.5 [facility] Comment on above: Performed By: #### C BC #### [facility] [address] [place] [address] Dr. Ever Kenny LYMPH # 1.7 103/ul Normal 1.2-3.8 [facility] Comment on above: Performed By: #### C BC #### [facility] [address] [place] [address] Dr. Ever Kenny Lymphocytes/100 WBC (Bld) 26.9 % Normal 20.5-60.0 [facility] Comment on above: Performed By: #### C BC #### [facility] [address] [place] [address] Dr. Ever Kenny MANUAL DIFF REQ NO Normal [facility] Comment on above: Performed By: #### C BC #### [facility] [address] [place] [address] Dr. Ever Kenny MCH (RBC) [Entitic mass] 31.6 pg Normal 25.9-34.0 [facility] Comment on above: Performed By: #### C BC #### [facility] [address] [place] [address] Dr. Ever Kenny MCHC (RBC) [Mass/Vol] 32.3 g/dL Normal 29.9-35.2 [facility] Comment on above: Performed By: #### C BC #### [facility] [address] [place] [address] Dr. Ever Kenny MCV (RBC) [Entitic vol] 97.9 fL Critically high 80.0-94.0 [facility] Comment on above: Performed By: #### C BC #### [facility] [address] [place] [address] Dr. Ever Kenny MONO # 0.7 103/ul Normal 0.3-0.8 [facility] Comment on above: Performed By: #### C BC #### [facility] [address] [place] [address] Dr. Ever Kenny Monocytes/100 WBC (Bld) 11.1 % Normal 1.7-12.0 [facility] Comment on above: Performed By: #### C BC #### [facility] [address] [place] [address] Dr. Ever Kenny NEUT # 3.4 103/ul Normal 1.4-6.5 [facility] Comment on above: Performed By: #### C BC #### [facility] [address] [place] [address] Dr. Ever Kenny Neutrophils/100 WBC (Bld) 55.8 % Normal 43.0-75.0 [facility] Comment on above: Performed By: #### C BC #### [facility] [address] [place] [address] Dr. Ever Kenny Platelet mean volume (Bld) [Entitic vol] 9.2 fL Critically low 9.5-13.5 [facility] Comment on above: Performed By: #### C BC #### [facility] [address] [place] [address] Dr. Ever Kenny PLT 222 103/ul Normal 150-450 [facility] Comment on above: Performed By: #### C BC #### [facility] [address] [place] [address] Dr. Ever Kenny RBC 4.81 106/ul Normal 4.70-6.10 [facility] Comment on above: Performed By: #### C BC #### [facility] [address] [place] [address] Dr. Ever Kenny WBC 6.1 103/ul Normal 4.0-11.0 [facility] Comment on above: Performed By: #### C BC #### [facility] [address] [address] [address] Ever Kenny LIPID PROFILEon 11-22-2021 CHOL-HDL RATIO NORM SEE BELOW Normal [facility] Comment on above: Result Comment: 3.3 - 4.4 LOW RISK 4.4 - 7.1 AVERAGE RISK 7.1 - 11.0 MODERATE RISK >11.0 HIGH RISK Performed By: #### L IPID, CMP #### [facility] [address] [address] [address] Ever Kenny Cholesterol [Mass/Vol] 206 mg/dL Critically high <=200 [facility] Comment on above: Performed By: #### L IPID, CMP #### [facility] [address] [address] [address] Ever Kenny Cholesterol in HDL [Mass/Vol] 57 mg/dL Normal [facility] Comment on above: Performed By: #### L IPID, CMP #### [facility] [address] [address] [address] Ever Kenny Cholesterol in LDL [Mass/Vol] 129.4 mg/dL Normal [facility] Comment on above: Performed By: #### L IPID, CMP #### [facility] [address] [address] [address] Ever Kenny Cholesterol.total/Cho lesterol in HDL [Mass ratio] 3.6 {ratio} Normal [facility] Comment on above: Performed By: #### L IPID, CMP #### [facility] [address] [address] [address] Ever Kenny HDL NORMAL > or = 60 mg/dl - LO W CARDIOVASCULAR RISK <40 mg/dl - HIGH CARDIOVASCULAR RISK Normal [facility] Comment on above: Performed By: #### L IPID, CMP #### [facility] [address] [address] [address] Ever Kenny LDL CALC NORMAL SEE BELOW Normal [facility] Comment on above: Result Comment: <100 mg/dl OPTIMAL 100 - 129 mg/dl NEAR OR ABOVE OPTIMAL 130 - 159 mg/dl BORDERLINE HIGH 160 - 189 mg/dl HIGH >190 mg/dl VERY HIGH Performed By: #### L IPID, CMP #### [facility] [address] [place] [address] Dr. Ever Kenny Triglyceride [Mass/Vol] 98 mg/dL Normal <=150 [facility] Comment on above: Performed By: #### L IPID, CMP #### [facility] [address] [place] [address] Dr. Ever Kenny VLDL CALC 19.6 mg/dL Normal [facility] Comment on above: Performed By: #### L IPID, CMP #### [facility] [address] [place] [address] Dr. Ever Kenny PROF 14(COMP METB)on 022 Albumin [Mass/Vol] 3.9 g/dL Normal 3.5-5.0 [facility] Comment on above: Performed By: #### L IPID, CMP #### [facility] [address] [place] [address] Dr. Ever Kenny Albumin/Globulin [Mass ratio] 1.3 {ratio} Normal [facility] Comment on above: Performed By: #### L IPID, CMP #### [facility] [address] [place] [address] Dr. Ever Kenny ALP [Catalytic activity/Vol] 52 U/L Normal 38-126 [facility] Comment on above: Performed By: #### L IPID, CMP #### [facility] [address] [place] [address] Dr. Ever Kenny ALT [Catalytic activity/Vol] 24 U/L Normal 21-72 [facility] Comment on above: Performed By: #### L IPID, CMP #### [facility] [address] [place] [address] Dr. Ever Kenny Anion gap [Moles/Vol] 9.8 mmol/L Normal [facility] Comment on above: Performed By: #### L IPID, CMP #### [facility] [address] [place] [address] Dr. Ever Kenny AST [Catalytic activity/Vol] 15 U/L Critically low 17-59 [facility] Comment on above: Performed By: #### L IPID, CMP #### [facility] [address] [place] [address] Dr. Ever Kenny Bilirubin [Mass/Vol] 0.7 mg/dL Normal 0.2-1.3 [facility] Comment on above: Performed By: #### L IPID, CMP #### [facility] [address] [place] [address] Dr. Ever Kenny Calcium [Mass/Vol] 8.8 mg/dL Normal 8.4-10.2 [facility] Comment on above: Performed By: #### L IPID, CMP #### [facility] [address] [place] [address] Dr. Ever Kenny Chloride [Moles/Vol] 106 mmol/L Normal 98-107 [facility] Comment on above: Performed By: #### L IPID, CMP #### [facility] [address] [place] [address] Dr. Ever Kenny CO2 [Moles/Vol] 29.5 mmol/L Normal 22.0-30.0 [facility] Comment on above: Performed By: #### L IPID, CMP #### [facility] [address] [place] [address] Dr. Ever Kenny Creatinine [Mass/Vol] 1.05 mg/dL Normal 0.66-1.25 [facility] Comment on above: Performed By: #### L IPID, CMP #### [facility] [address] [place] [address] Dr. Ever Kenny EGFR-AF [place]TH [place]OREAN >60 Normal >=60 [facility] Comment on above: Performed By: #### L IPID, CMP #### [facility] [address] [place] [address] Dr. Ever Kenny EGFR-NON AF [place]OREAN >60 Normal >=60 [facility] Comment on above: Performed By: #### L IPID, CMP #### [facility] [address] [place] [address] Dr. Ever Kenny Globulin (S) [Mass/Vol] 2.9 g/dL Normal [facility] Comment on above: Performed By: #### L IPID, CMP #### [facility] [address] [place] [address] Dr. Ever Kenny Glucose [Mass/Vol] 105 mg/dL Normal 74-106 [facility] Comment on above: Performed By: #### L IPID, CMP #### [facility] [address] [place] [address] Dr. Ever Kenny Potassium [Moles/Vol] 4.3 mmol/L Normal 3.4-5.0 [facility] Comment on above: Performed By: #### L IPID, CMP #### [facility] [address] [place] [address] Dr. Ever Kenny Protein [Mass/Vol] 6.8 g/dL Normal 6.1-8.2 [facility] Comment on above: Performed By: #### L IPID, CMP #### [facility] [address] [place] [address] Dr. Ever Kenny Sodium [Moles/Vol] 141 mmol/L Normal 137-145 [facility] Comment on above: Performed By: #### L IPID, CMP #### [facility] [address] [place] [address] Dr. Ever Kenny Urea nitrogen [Mass/Vol] 19.0 mg/dL Normal 9.0-20.0 [facility] Comment on above: Performed By: #### L IPID, CMP #### [facility] [address] [place] [address] Dr. Ever Kenny Urea nitrogen/Creatinine [Mass ratio] 18.1 mg/mg Normal [facility] Comment on above: Performed By: #### L IPID, CMP #### [facility] [address] [place] [address] Dr. Ever Kenny UA (CLEAN/CATCH) MICROSCOPIC IF INDICATEon 11-22-2021 Bilirubin Ql (U) Negative Normal NEGATIVE [facility] Comment on above: Performed By: #### U PARKER RICH #### [facility] [address] [address] [address] Ever Kenny Clarity (U) CLEAR Normal CLEAR [facility] Comment on above: Performed By: #### U LAYLA UMICRO #### [facility] [address] [place] [address] Dr. Ever Kenny Color (U) LT. YELLOW Normal YELLOW [facility] Comment on above: Performed By: #### U ARMVERONICA UMICRO #### [facility] [address] [place] [address] Dr. Ever Kenny Glucose Ql (U) Negative Normal NEGATIVE [facility] Comment on above: Performed By: #### U LAYLA UMICRO #### [facility] [address] [place] [address] Dr. Ever Kenny Hemoglobin Ql (U) MODERATE Abnormal NEGATIVE [facility] Comment on above: Performed By: #### U LAYLA UMICRO #### [facility] [address] [place] [address] Dr. Ever Kenny Ketones Ql (U) Negative Normal NEGATIVE [facility] Comment on above: Performed By: #### U LAYLA UMICRO #### [facility] [address] [place] [address] Dr. Ever Kenny LEUKOCYTES Negative Normal NEGATIVE [facility] Comment on above: Performed By: #### U LAYLA UMICRO #### [facility] [address] [place] [address] Dr. Ever Kenny Nitrite Ql (U) Negative Normal NEGATIVE [facility] Comment on above: Performed By: #### U LAYLA UMICRO #### [facility] [address] [place] [address] Dr. Ever Kenny pH (U) 7.0 [pH] Normal 5-9 [facility] Comment on above: Performed By: #### U LAYLA UMICRO #### [facility] [address] [place] [address] Dr. Ever Kenny SPEC GRAVITY 1.010 Normal 1.005-<=1.0 25 [facility] Comment on above: Performed By: #### FAIZA WARRENICRO #### [facility] [address] [place] [address] Dr. Ever Kenny UA PROTEIN Negative Normal NEGATIVE/ TRACE [facility] Comment on above: Performed By: #### Will RICH UMICRO #### [facility] [address] [place] [address] Dr. Ever Kenny UR MICRO IND INDICATED Normal [facility] Comment on above: Performed By: #### Will RICH UMICRO #### [facility] [address] [address] [address] Ever Kenny Urobilinogen Qn (U) 0.2 {Jaleel'U}/dL Normal 0.2 - 1. 0 [facility] Comment on above: Performed By: #### FAIZA WARRENICRO #### [facility] [address] [place] [address] Dr. Ever Kenny URINE MICROSCOPIC ONLYon BACTERIA NONE SEEN Normal NONE SEEN [facility] Comment on above: Performed By: #### Will RICH UMICRO #### [facility] [address] [place] [address] Dr. Ever Kenny Bacteria identified Cx Nom (U) NOT INDICATED Normal [facility] Comment on above: Performed By: #### FAIZA WARRENICRO #### [facility] [address] [place] [address] Dr. Ever Kenny CAST NONE SEEN Normal NONE SEEN [facility] Comment on above: Performed By: #### Will RICH UMICRO #### [facility] [address] [place] [address] Dr. Ever Kenny Crystals LM Nom (Urine sed) NONE SEEN Normal NONE SEEN [facility] Comment on above: Performed By: #### Will RICH UMICRO #### [facility] [address] [place] [address] Dr[address] Ever Kenny Epithelial cells LM Ql (Urine sed) NONE SEEN Normal NONE SEEN /RARE [facility] Comment on above: Performed By: #### U ARMICR, UMICRO #### [facility] [address] [address] [address] Ever Kenny MUCOUS SMALL Abnormal NONE SEEN [facility] Comment on above: Performed By: #### U LAYLA UMICRO #### [facility] [address] [address] [address] Ever Kenny RBC 0-2 Normal 0-2 [facility] Comment on above: Performed By: #### U LAYLA UMICRO #### [facility] [address] [address] [address] Ever Kenny SPERMATOZOA, UR PRESENT Abnormal [facility] Comment on above: Performed By: #### U LAYLA UMICRO #### [facility] [address] [address] [address] Ever Kenny WBC NONE SEEN Normal NONE SEEN [facility] Comment on above: Performed By: #### Will RICH UMICRO #### [facility] [address] [address] [address] Ever Kenny Vital Signs Date Time Vital Sign Value Performing Clinician Facility 10-24-2023 [id number] Body height 170.2 cm Larissa Bach MD Work Phone: [facility] 10-24-2023 10:19-0500 Body mass index (BMI) [Ratio] 26.07 kg/m2 Larissa Bach MD Work Phone: [facility] 10-24-2023 10:19-0500 Body weight 75.52 kg Larissa Bach MD Work Phone: [facility] 10-24-2023 10:19-0500 Diastolic blood pressure 70 mm[Hg] Larissa Bach MD Work Phone: [facility] 10-24-2023 10:19-0500 Heart rate 72 /min Larissa Bach MD Work Phone: [facility] 10-24-2023 10:19-0500 Systolic blood pressure 126 mm[Hg] Larissa Bach MD Work Phone: [facility] [employer] [facility] 09-08-2023 12:00-0500 Body height 168.91 cm Jeannie Vinay Other [employer] Other 09-08-2023 12:00-0500 Body mass index (BMI) [Ratio] 26.8 kg/m2 Jeannie Mclean Other [employer] Other 09-08-2023 12:00-0500 Body temperature 98.9 [degF] Jeannie Mclean Other [employer] Other 09-08-2023 12:00-0500 Body weight 76.48 kg Jeannie Mclean Other [employer] Other 09-08-2023 12:00-0500 Respiratory rate 18 /min Jeannie Mclean Other [employer] Other 09-08-2023 12:00-0500 SaO2% (BldA) [Mass fraction] 93 % Jeannie Mclean Other [employer] Other 08-13-2023 10:20-0500 Body height 168.91 cm Jama King Other [employer] Other 08-13-2023 10:20-0500 Body mass index (BMI) [Ratio] 27.42 kg/m2 Jama King Other [employer] Other 08-13-2023 10:20-0500 Body weight 78.25 kg Jama King Other [employer] Other 08-13-2023 10:20-0500 Diastolic blood pressure 70 mm[Hg] Jama King Other [employer] Other 08-13-2023 10:20-0500 Systolic blood pressure 132 mm[Hg] Jama Scovanner Other [employer] Other 07-09-2023 10:20-0400 Body height 168.91 cm Jama Scovanner Other [employer] Other 07-09-2023 10:20-0400 Body mass index (BMI) [Ratio] 27.34 kg/m2 Jama Scovanner Other [employer] Other 07-09-2023 10:20-0400 Body weight 78.02 kg Jama Scovanner Other [employer] Other 07-09-2023 10:20-0400 Diastolic blood pressure 67 mm[Hg] Jama Scovanner Other [employer] Other 07-09-2023 10:20-0400 Systolic blood pressure 129 mm[Hg] Jama Scovanner Other [employer] Other 03-04-2023 09:03-0400 Blood Pressure Location [employer] [facility] 03-04-2023 09:03-0400 Diastolic blood pressure 78 mm[Hg] Chrissie Bilbus [facility] 03-04-2023 09:03-0400 Heart rate 68 /min Chrissie Bilbus [facility] 03-04-2023 09:03-0400 Respiratory rate 16 /min Chrissie Bilbus [facility] 06-26-2023 09:03-0400 Systolic blood pressure 128 mm[Hg] Chrissie Bilbus [facility] 12-18-2022 11:15-0400 Body height 168.91 cm Jeannie Mclean Other [employer] Other 12-18-2022 11:15-0400 Body mass index (BMI) [Ratio] 29.41 kg/m2 Jeannie Mclean Other [employer] Other 12-18-2022 11:15-0400 Body temperature 97.1 [degF] Jeannie Mclean Other [employer] Other 12-18-2022 11:15-0400 Body weight 83.92 kg Jeannie Zapataler Other [employer] Other 12-18-2022 11:15-0400 Diastolic blood pressure 75 mm[Hg] Jeannie Mclean Other [employer] Other 12-18-2022 11:15-0400 Respiratory rate 18 /min Jeannie Zapataler Other [employer] Other 12-18-2022 11:15-0400 SaO2% (BldA) [Mass fraction] 96 % Jeannie Mclean Other [employer] Other 12-18-2022 11:15-0400 Systolic blood pressure 125 mm[Hg] Jeannie Mclean Other [employer] Other 11-29-2022 12:25-0400 Body temperature 97.7 [degF] Chrissie Bilbus [facility] 11-29-2022 12:25-0400 Diastolic blood pressure 89 mm[Hg] Chrissie STILES [facility] 11-29-2022 12:25-0400 Heart rate 64 /min Chrissie STILES [facility] 11-29-2022 12:25-0400 Respiratory rate 18 /min Chrissie STILES [facility] 11-29-2022 12:25-0400 SaO2% (BldA) [Mass fraction] 97 % Chrissie STILES [facility] 11-29-2022 12:25-0400 Systolic blood pressure 139 mm[Hg] Chrissie STILES [facility] 11-29-2022 11:25-0400 Blood Pressure Location Chrissie STILES [facility] 11-29-2022 11:25-0400 Body temperature 97.7 [degF] Chrissie STILES [facility] 11-29-2022 11:25-0400 Diastolic blood pressure 72 mm[Hg] Chrissie STILES [facility] 11-29-2022 11:25-0400 Heart rate 62 /min Chrissie STILES [facility] 11-29-2022 11:25-0400 Respiratory rate 18 /min Chrissie STILES [facility] 11-29-2022 11:25-0400 SaO2% (BldA) [Mass fraction] 97 % Chrissie STILES [facility] 11-29-2022 11:25-0400 Systolic blood pressure 135 mm[Hg] Chrissie STILES [facility] 11-29-2022 11:11-0400 Blood Pressure Location Chrissie STILES [facility] 11-29-2022 11:11-0400 Body temperature 96.8 [degF] Chrissie STILES [facility] 11-29-2022 11:11-0400 Diastolic blood pressure 68 mm[Hg] Chrissie STILES [facility] 11-29-2022 11:11-0400 Heart rate 61 /min Chrissie STILES [facility] 11-29-2022 11:11-0400 Respiratory rate 16 /min Chrissie STILES [facility] 11-29-2022 11:11-0400 SaO2% (BldA) [Mass fraction] 96 % Chrissie STILES [facility] 11-29-2022 11:11-0400 Systolic blood pressure 133 mm[Hg] Chrissie STILES [facility] 11-29-2022 11:01-0400 Blood Pressure Location Chrissie STILES [facility] 11-29-2022 10:40-0400 Respiratory rate 13 /min Chrissie STILES [facility] 11-29-2022 10:35-0400 Respiratory rate 12 /min Chrissie STILES [facility] 11-29-2022 10:30-0400 Respiratory rate 12 /min Chrissie STILES [facility] 11-29-2022 08:30-0400 Body temperature 97.7 [degF] Chrissie STILES [facility] 11-29-2022 08:30-0400 Heart rate 78 /min Chrissie STILES [facility] 11-21-2022 10:36-0400 Diastolic blood pressure 78 mm[Hg] Antoni P House Work Phone: [facility] 250 DO Work Phone: 11-21-2022 10:36-0400 Systolic blood pressure 122 mm[Hg] Antoni P House Work Phone: [facility] 250 DO Work Phone: 11-21-2022 10:34-0400 Body height 170.18 cm Antoni P House Work Phone: [facility] 250 DO Work Phone: 11-21-2022 10:34-0400 Body mass index (BMI) [Ratio] 28.98 kg/m2 Antoni P House Work Phone: [facility] 250 DO Work Phone: 11-21-2022 10:34-0400 Body surface area Derived from formula 1.96 m2 Antoni P House Work Phone: [facility] 250 DO Work Phone: 11-21-2022 10:34-0400 Body weight 83.92 kg Antoni P House Work Phone: [facility] 250 DO Work Phone: 11-21-2022 10:34-0400 Diastolic blood pressure 76 mm[Hg] Antoni P House Work Phone: [facility] 250 DO Work Phone: 11-21-2022 10:34-0400 Heart rate 67 /min Antoni P House Work Phone: [facility] 250 DO Work Phone: 11-21-2022 10:34-0400 Systolic blood pressure 124 mm[Hg] Antoni P House Work Phone: [facility] 250 DO Work Phone: 11-16-2022 09:42-0500 Diastolic blood pressure 78 mm[Hg] Chrissie STILES [facility] 11-16-2022 09:42-0500 Heart rate 60 /min Chrissie STILES [facility] 11-16-2022 09:42-0500 Mean blood pressure 96 mm[Hg] Chrissie STILES [facility] 11-16-2022 09:42-0500 Systolic blood pressure 132 mm[Hg] Chrissie STILES [facility] 11-16-2022 09:42-0500 Heart rate 60 /min Chrissie STILES [facility] 11-16-2022 09:42-0500 SaO2% (BldA) [Mass fraction] 98 % Chrissie STILES [facility] 11-16-2022 09:42-0500 Body temperature 97.88 [degF] Chrissie STILES [facility] 11-16-2022 09:41-0500 Diastolic blood pressure 78 mm[Hg] Chrissie STILES [facility] 11-16-2022 09:41-0500 Mean blood pressure 97 mm[Hg] Chrissie STILES [facility] 11-16-2022 09:41-0500 Systolic blood pressure 134 mm[Hg] Chrissie STILES [facility] 01-15-2022 13:36-0400 Blood Pressure Location Chino Flores Jr. [facility] 01-15-2022 13:36-0400 Diastolic blood pressure 55 mm[Hg] Chino Flores Jr. [facility] 01-15-2022 13:36-0400 Heart rate 73 /min Chino Flores Jr. [facility] 01-15-2022 13:36-0400 Systolic blood pressure 128 mm[Hg] Chino Flores Jr. [facility] Encounters Encounter Date Encounter Type Care Provider Facility Start: 03-09-2024 ambulatory Chrissie STILES Facility :[facility] Start: 10-24-2023 Telephone encounter Olena pena [facility] Comment on above: Follow up Start: 10-24-2023 End: 10-24-2023 Office outpatient new 45 minutes [facility]issa Bach MD [facility] Comment on above: Cerebrovascular acci dent (CVA), unspecified mechanism (CMS- HCC) (Primary Dx); BRITTANY on CPAP; Chronic tension-type headache, not intractable; Cerebrovascular accident within last 3 months; Hyperglycemia; Palpitation; Cataract of right eye, unspecified cataract type Start: 10-13-2023 ambulatory [facility] Start: 10-09-2023 Telephone encounter Lauren Omalley [facility] Comment on above: STROKE REFERRAL Start: 10-01-2023 End: 10-01-2023 ambulatory COOL MANNYLILIAN Not Available Start: 09-08-2023 End: 09-08-2023 ambulatory Jeannie Mclean Other [employer] Other Start: 09-08-2023 Office outpatient vi sit 25 minutes Jeannie Mclean [facility] Start: 08-28-2023 End: 08-28-2023 ambulatory COOL LUIS ALBERTO Not Available Start: 08-13-2023 End: 08-13-2023 ambulatory Jama King Other [employer] Other Start: 08-13-2023 Office outpatient vi sit 15 minutes Jama King [facility] Start: 07-09-2023 End: 07-09-2023 ambulatory Jama King Other [employer] Other Start: 07-09-2023 Office outpatient ne w 30 minutes Jama King [facility] Start: 03-04-2023 End: 03-05-2023 ambulatory Chrissie STILES Facility:[facility] Start: 03-04-2023 End: 03-04-2023 Patient encounter procedure Chrissie STILES [facility] Start: 01-21-2023 ambulatory Sam AHMADI Facility: [facility] Start: 12-21-2022 End: 12-22-2022 ambulatory Chrissie STILES Facility:[facility] Start: 12-21-2022 End: 12-21-2022 Patient encounter procedure Chrissie STILES [facility] Start: 12-18-2022 End: 12-18-2022 ambulatory Jeannie Mclean Other [employer] Other Start: 12-18-2022 Office outpatient vi sit 15 minutes Jeannie Mclean [facility] Start: 11-29-2022 End: 11-29-2022 ambulatory Chrissie STILES Facility:[facility] Start: 11-29-2022 End: 11-29-2022 Admission to same day surgery center Chrissie STILES [facility] Start: 11-21-[address] Antoni Cho Facility: Start: 11-21-2022 Office consultation new/estab patient 60 min Antoni Cho Work Phone: [facility] 250 DO Work Phone: Start: 11-16-2022 End: 11-17-[address] Antoni Cho Facility: Start: 11-16-2022 End: 11-16-2022 Patient encounter procedure Chrissie STILES [facility] Start: 10-17-2022 End: 10-18-[address] CHRISSIE STILES Facility: Start: 10-09-2022 End: 10-10-2022 ambulatory Chrissie STILES Facility:[facility] Start: 10-09-2022 End: 10-09-2022 Patient encounter procedure Chrissie STILES [facility] Start: 01-15-2022 End: 01-15-2022 Patient encounter procedure Chino Flores Jr. [facility] Start: 12-01-2021 End: 12-02-[address] ANTONI CHO Facility:[facility] Start: 11-22-2021 End: 11-23-[address] ANTONI CHO Facility: Patient encounter status Antoni Cho Work Phone: [facility] 250 DO Work Phone: Procedures Date Procedure Procedure Detail Performing Clinician Start: 10-24-2023 Adult depression scr eening assessment Olena Burkett [employer]S OFFICER Start: 11-29-2022 Exploration of scrotum Chrissie STILES Start: 11-29-2022 Spermatic cord struc ture (body structure) Chrissie STILES Start: 01-15-2022 Cystoscopy Chino velazquez Jr. Start: 11-22-[address] LINDA STILES Comment on above: Performed By: #### P SAD #### [facility] [address] [place] [address] Dr. Ever Kenny Start: 01-27-2020 Colonoscopy Lauren elena Start: 09-09-2019 Total colonoscopy Sarah Cho Work Phone: Colonoscopy Chino Olivo Excision of lipoma Antoni Cho Work Phone: Tonsillectomy Chino rosa Tonsillectomy Antoni oswald Work Phone: Plan of Treatment Date Care Activity Detail Author Start: 01-26-2025 Screening for malign ant neoplasm of colon Colonoscopy [facility] Start: 10-24-2024 Adult BMI Screening Adult BMI Screen ing [facility] Start: 10-24-2024 Depression Screening Depression Scre ening [facility] Start: 10-24-2024 Tobacco Screening Tobacco Screening [facility] Start: 08-07-2024 Tobacco Screening Tobacco Screening [facility] Start: 08-06-2024 Adult BMI Screening Adult BMI Screen ing [facility] Start: 11-28-2023 End: 11-28-2023 Patient encounter procedure [facility] Start: 11-12-2023 FUV, Provider: Taryn Real, Status: Pen, Time: 10:50 AM FUV, Provider: Taryn Real, Status: Pen, Time: 10:50 AM [facility] 250 DO Work Phone: Start: 10-24-2023 End: 10-24-2024 CTA Carotid artery W contrast IV CT angiogram carotid Imaging Routine Cerebrovascular accident (CVA), unspecified mechanism (CMS-HCC) Expected: 10/24/2023, Expires: 10/24/2024 [facility] Comment on above: Expected: 10/24/2023 , Expires: 10/24/2024 Start: 10-24-2023 End: 10-24-2024 CTA Head Arteries W contrast IV CT angiogram head Imaging Routine Cerebrovascular accident (CVA), unspecified mechanism (CMS-HCC) Expected: 10/24/2023, Expires: 10/24/2024 [facility] Work Phone: Comment on above: Expected: 10/24/2023 , Expires: 10/24/2024 Start: 10-24-2023 End: 10-24-2024 Echo complete W/O contrast Echo complete W/O contrast Echocardiography Routine Cerebrovascular accident (CVA), unspecified mechanism ([facility]) Cerebrovascular accident within last 3 months Expected: 10/24/2023, Expires: 10/24/2024 [facility] Comment on above: Expected: 10/24/2023 , Expires: 10/24/2024 Start: 10-24-2023 End: 10-24-2024 Event monitor Event monitor Cardiac Services Routine Cerebrovascular accident (CVA), unspecified mechanism ([facility]) Palpitation Expected: 10/24/2023, Expires: 10/24/2024 [facility] Comment on above: Expected: 10/24/2023 , Expires: 10/24/2024 Start: 10-24-2023 End: 10-24-2023 Patient encounter procedure 10/24/2023 10:00 AM EST Office Visit [facility] [address] [place] [id number] Larissa Bach MD [address] [place] [address], [address] [place] [address] [facility] Start: 05-10-2023 COVID-19 Vaccine ( season) COVID-19 Vaccine ( season) [facility] Start: 05-10-2023 Influenza vaccination Influenza Vacc ine [facility] Start: 2005 Fall Risk Screening Fall Risk Screen ing [facility] Start: 1990 Administration of varicella zoster vaccine Zoster (Shingles) Vaccine (1 of 2) [facility] Start: 12-06-1959 DTaP,Tdap and Td Vaccines (1 - Tdap) DTaP,Tdap and Td Vaccines (1 - Tdap) [facility] Start: 1958 Adult BMI Follow Up Plan Adult BMI F ollow Up Plan [facility] Start: 1952 Depression Screening Depression Scre ening [facility] Start: 1940 Medicare Annual Well ness Visit Medicare Annual Wellness Visit [facility] End: 10-24-2024 Creatinine includes GFR, serum Creatinine includes GFR, serum Lab Routine Cerebrovascular accident (CVA), unspecified mechanism ([facility]) 1 Occurrences starting 10/24/2023 until 10/24/2024 [facility] Comment on above: 1 Occurrences starti ng 10/24/2023 until 10/24/2024 End: 10-24-2024 Hemoglobin A1c/Hemoglobin.total in Blood Hemoglobin A1c Lab Routine Cerebrovascular accident (CVA), unspecified mechanism ([facility]) Hyperglycemia 1 Occurrences starting 10/24/2023 until 10/24/2024 [facility] Comment on above: 1 Occurrences starti ng 10/24/2023 until 10/24/2024 End: 10-24-2024 Lipid 1996 panel - Serum or Plasma Lipid profile Lab Routine Cerebrovascular accident (CVA), unspecified mechanism ([facility]) 1 Occurrences starting 10/24/2023 until 10/24/2024 [facility] Comment on above: 1 Occurrences starti ng 10/24/2023 until 10/24/2024 Immunizations Immunization Date Immunization Notes Care Provider Joselito palmer 07-10-2022 Pfizer COVID-19 Vac Bivalent 30 MCG/0.3ML Intramuscular Suspension Antoni P Zaranga Work Phone: [facility] 06-15-2022 Fluzone High-Dose Quadrivalent 0.7 ML Intramuscular Suspension Prefilled Syringe Antoni P Zaranga Work Phone: [facility] 250 DO Work Phone: 06-15-2022 influenza virus vaccine, unspecified formulation Chrissie STILES [facility] 08-10-2021 Pfizer-BioNTech COVID-19 Vacc 30 MCG/0.3ML Intramuscular Suspension Antoni P Zaranga Work Phone: [facility] 06-09-2021 SARS-CoV-2 (COVID-19 ) mRNA BNT-162b2 real Flores Jr. [facility] 12-08-2020 SARS-CoV-2 (COVID-19 ) mRNA BNT-162b2 vax Chino Flores Jr. [facility] 12-06-2020 Pfizer-BioNTech COVID-19 Vacc 30 MCG/0.3ML Intramuscular Suspension Antoni P Easton Work Phone: [facility] 11-14-2020 Pfizer-BioNTech COVID-19 Vacc 30 MCG/0.3ML Intramuscular Suspension Antoni P House Work Phone: [facility] 11-07-2020 SARS-CoV-2 (COVID-19 ) mRNA BNT-162s3 jenx Chino Flores Jr. [facility] 09-03-2020 influenza virus vaccine, unspecified formulation [employer] [facility] 09-03-2020 influenza, high dose seasonal, preservative-free Antoni P Easton Work Phone: [facility] 250 DO Work Phone: 09-03-2020 pneumococcal conjuga te vaccine, 13 valent Antoni P Easton Work Phone: [facility] 06-27-2019 influenza virus vaccine, unspecified formulation [employer] [facility] 06-27-2019 influenza, injectabl e, quadrivalent, preservative free Antoni P Easton Work Phone: [facility] 250 DO Work Phone: 06-27-2019 pneumococcal polysaccharide vaccine, 23 valent Antoni P Easton Work Phone: [facility] 09-12-2014 tetanus toxoid, redu brenda diphtheria toxoid, and acellular pertussis vaccine, adsorbed Jeannie Mclean Other [employer] Other Payers Date Payer Category Payer Medicare [id number] 2022 Private Health Insurance [id number] 2014 Private Health Insurance [employer] [id number] 2014-Present [address] [address] [place] [address] [id number] 2005 Medicare MEDICARE MEDICAR E PART A & B [id number] 2005-Present [phone] [address] [place] [address] [id number] 1959 Medicare [id number] 1959 Private Health Insurance [id number] 1940 Unknown [id number] [id number]. 2.593 1940 Unknown [id number] 2.16.840.1.800336.3.579. 2.593 1940 Unknown [id number] 2.16.840.1.269205.3.579. 2.593 1940 Unknown [id number] 2.16.840.1.010192.3.579. 2.356 1940 Unknown [id number] 2.16.840.1.138783.3.579. 2.356 1940 Unknown [id number] 2.16.840.1.235792.3.579. 2.727 1940 Unknown [id number] 2.16.840.1.470735.3.579. 2.727 1940 Unknown [id number] 2.16.840.1.040341.3.579. 2.727 1940 Unknown [id number] 2.16.840.1.510247.3.579. 2.727 1940 Unknown [id number] 2.16.840.1.868107.3.579. 2.727 1940 Unknown [id number] 2.16.840.1.882671.3.579. 2.727 1940 Unknown [id number] 2.16.840.1.667250.3.579. 2.727 1940 Unknown [id number] 2.16.840.1.904393.3.579. 2.1259 1940 Unknown [id number] 2.16.840.1.454957.3.579. 2.1259 1940 Unknown [id number] [id number]. 2.1286 Unknown Social History Date Type Detail Facility Start: 01-15-2022 End: 06-11-2023 Tobacco smoking status Ex-smoker (finding) [facility] Start: 10-20-2020 End: 08-07-2023 Sex Assigned At Male [facility] Start: 10-20-2020 End: 06-11-2023 Social alcohol use Social alcohol use [facility] 250 DO Work Phone: Comment on above: quit 1978; End: 09-09-1978 History of tobacco use Current smoker [facility] End: 09-09-1978 History of tobacco use Cigarette Smoker [facility] Start: 06-11-2023 Tobacco use and exposure Smokeless tobacco non-user [facility] Start: 08-07-2023 End: 10-25-2023 Alcohol intake Current drinker of alcohol (finding) [facility] Childcare Unknown [facility] Start: 06-16-2021 Alcohol Comment 2-4 BEERS A DAY [facility] Start: 1940 Sex Assigned At Not on file P [facility] Medical Equipment Procedure Code Equipment Code Equipment Origin al Text Equipment Identifier Dates [facility] U[facility] Iol [id number] Start: 07-02-2023 [facility] Uv Iol [id number] Start: 08-06-2023 Functional Status Date Assessment Result Facility 03-04-2023 Functional Status N/A [facility] [facility] 12-21-2022 Functional Status N/A [facility] 11-16-2022 Functional Status No [facility] 10-09-2022 Functional Status N/A [facility] Clinical Notes 11-22-2021 to 10-24-2023 Telephone Encounter - Olena Burkett CMA - 10/24/2023 11:37 AM ESTTelephone Encounter - Alvina Gaitan - 10/24/2023 11:37 AM ESTTelephone Encounter - Alvina Gaitan - 10/24/2023 11:37 AM EST Note Date & Type Note Facility 10-24-2023 Miscellaneous Notes Formattin g of this note might be different from the original. would like to follow up 2 months in [place]. Please schedule 1st attempt: Instructional Design Consultant contacted patient and informed them that we have received a request to be seen in our clinic for a follow up appointment. Patient stated that they will contact our clinic later to schedule documented in this encounter [facility] 10-24-2023 Telephone encount er Note would like to follow up 2 months in [place]. Please schedule [facility] 10-24-2023 Telephone encount er Note 1st attempt: Instructional Design Consultant contacted patient and informed them that we have received a request to be seen in our clinic for a follow up appointment. Patient stated that they will contact our clinic later to schedule [facility] 10-24-2023 History of Presen t illness Narrative Reason for visit: Abnormal MRI brain. HPI: Steve De Leon is a right handed, 82 y.o. male, new patient, who presents for evaluation of an abnormal MRI brain. The patient is accompnaied to the clinic by his son. Patient reports having cataract surgery on the right eye about 3-4 months ago. Shortly afterwards he started having daily headaches. He reports a typical headache starting in the right temporal/retro-orbital region, described as constant pressure-like pain, not associated with nausea, photophobia, phonophobia, stroke-like symptoms, dysautonomia. Headaches are rated at an average severity of 5/10, usually lasting 30-60 minutes. Symptoms are not associated with focal motor weakness, visual field deficits, double vision, nausea, vomiting, behavioral disturbances, hallucinations, involuntary movements, loss of consciousness, seizure-like activity, falls, chest pain, shortness of breath. Pain appears to radiate towards the right occipital region. Patient reports occasional throbbing of the right eye which can co-occur with the headache. Denies previous history of CVA, TBI, seizures, learning disability. He has tried llea-ffi-efwuyfy Tylenol, which she is currently taking on a daily basis with moderate relief. He was started on topiramate 50 mg q.h.s. a few weeks ago and reports mild improvement in headache frequency and severity. Currently having 20 headache days per month. Was started on aspirin 81 mg q.d., atorvastatin 20 mg q.d. by the PCP. Subsequently had MRI of the brain with without contrast which was unremarkable except for a single punctate area of diffusion restriction in the left precentral gyrus. Subsequent carotid ultrasound was unremarkable. The following portions of the patient's history were reviewed and updated as appropriate: allergies, current medications, past family history, past medical history, past social history, past surgical history, problem list, and medication reconciliation was completed including current medication and post discharge medication. Review of Systems Review of Systems Constitutional: Negative for decreased appetite, malaise/fatigue, weight gain and weight loss. HENT: Negative for nosebleeds. Eyes: Positive for pain. Negative for blurred vision, double vision, vision loss in left eye, vision loss in right eye and visual disturbance. Right eye pain Cardiovascular: Negative for irregular heartbeat, leg swelling, near-syncope, palpitations and syncope. Respiratory: Negative for shortness of breath and sleep disturbances due to breathing. Hematologic/Lymphatic: Negative for bleeding problem. Does not bruise/bleed easily. Skin: Negative for poor wound healing. Musculoskeletal: Positive for neck pain. Negative for falls, muscle cramps, muscle weakness and myalgias. Gastrointestinal: Negative for dysphagia. Neurological: Negative for aphonia, difficulty with concentration, disturbances in coordination, dizziness, focal weakness, headaches, light-headedness, loss of balance, numbness, paresthesias, seizures, sensory change, vertigo and weakness. Psychiatric/Behavioral: Negative for altered mental status, depression and memory loss. The patient does not have insomnia and is not nervous/anxious. Past Medical History Past Medical History: Diagnosis Date Cataract Visual impairment Past Surgical History Past Surgical History: Procedure Laterality Date COLONOSCOPY several EXTRACTION CATARACT INTRAOCULAR LENS Left 08/06/2023 Performed by Sherice Flores MD at [facility] EXTRACTION CATARACT INTRAOCULAR LENS Right 07/02/2023 Performed by Sherice Flores MD at [facility] LIPOMA RESECTION 1954 LIPOMA RESECTION 11/2022 scrotum TONSILLECTOMY Family History The patient has a family history of Family History Problem Relation Age of Onset Heart disease Mother Stroke Father Cancer Sister Breast cancer Sister Social History Social History Socioeconomic History Marital status: Spouse name: Not on file Number of children: Not on file Years of education: Not on file Highest education level: Not on file Occupational History Not on file Tobacco Use Smoking status: Former Packs/day: 3.00 Years: 25.00 Additional pack years: 0.00 Total pack years: 75.00 Types: Cigarettes Quit date: 1978 Years since quittin.1 Smokeless tobacco: Never Vaping Use Vaping Use: Never used Substance and Sexual Activity Alcohol use: Yes Alcohol/week: 20.0 standard drinks of alcohol Types: 20 Cans of beer per week Comment: 2-4 BEERS A DAY Drug use: Never Sexual activity: Defer Partners: Female Other Topics Concern Not on file Social History Narrative Not on file Social Determinants of Health Financial Resource Strain: Not on file Food Insecurity: Not on file Transportation Needs: Not on file Physical Activity: Not on file Stress: Not on file Social Connections: Not on file Interpersonal Safety: Not on file Housing Instability: Not on file Current Medications: Current Outpatient Medications: aspirin 81 mg chewable tablet, chew and swallow 1 tablet by mouth every morning, Disp: , Rfl: atorvastatin (LIPITOR) 20 mg tablet, Take 1 tablet (20 mg total) by mouth in the morning., Disp: , Rfl: hyoscyamine (ANASPAZ,LEVSIN) 0.125 mg tablet, Take 1 tablet (0.125 mg total) by mouth 3 (three) times a day., Disp: , Rfl: omeprazole (PriLOSEC) 20 mg capsule, Take 1 capsule (20 mg total) by mouth every other day., Disp: , Rfl: albuterol (PROVENTIL HFA;VENTOLIN HFA) 90 mcg/actuation inhaler, inhale 2 puffs by mouth and INTO THE LUNGS every 4 to 6 hours if needed (Patient not taking: Reported on 10/24/2023), Disp: , Rfl: multivitamin (THERAGRAN) tablet, Take 1 tablet by mouth in the morning. (Patient not taking: Reported on 10/24/2023), Disp: , Rfl: naproxen (NAPROSYN) 250 mg tablet, Take 1 tablet (250 mg total) by mouth. (Patient not taking: Reported on 10/24/2023), Disp: , Rfl: SUMAtriptan (IMITREX) 50 mg tablet, take 1 tablet by mouth ONE TIME DOSE if needed for migraines for ... (REFER TO PRESCRIPTION NOTES). (Patient not taking: Reported on 10/24/2023), Disp: , Rfl: topiramate (TOPAMAX) 50 mg tablet, Take 1 tablet (50 mg total) by mouth in the morning and 1 tablet (50 mg total) before bedtime., Disp: 120 tablet, Rfl: 3 ubrogepant (UBRELVY) 100 mg tablet, Take 100 mg by mouth. (Patient not taking: Reported on 10/24/2023), Disp: , Rfl: Allergies: No Known Allergies Last Neuro Imaging: Refer to [facility] Objective: BP 126/70 (BP Site: Left Arm, BP Postition: Sitting, BP CUFF SIZE: M (9-13 inches)) Pulse 72 Ht 170.2 cm (5' 7.01 ) Wt 75.5 kg (166 lb 8 oz) BMI 26.07 kg/m Physical Exam: NIH Stroke Scale 1a Level of consciousness: 0=alert; keenly responsive 1b. LOC questions: 0=Performs both tasks correctly 1c. LOC commands: 0=Performs both tasks correctly 2. Best Gaze: 0=normal 3. Visual: 0=No visual loss 4. Facial Palsy: 0=Normal symmetric movement 5a. Motor left arm: 0=No drift, limb holds 90 (or 45) degrees for full 10 seconds 5b. Motor right arm: 0=No drift, limb holds 90 (or 45) degrees for full 10 seconds 6a. motor left le=No drift, limb holds 90 (or 45) degrees for full 10 seconds 6b Motor right le=No drift, limb holds 90 (or 45) degrees for full 10 seconds 7. Limb Ataxia: 0=Absent 8. Sensory: 0=Normal; no sensory loss 9. Best Language: 0=No aphasia, normal 10. Dysarthria: 0=Normal 11. Extinction and Inattention: 0=No abnormality 12. Distal motor function: 0=Normal Total: 0 General Appearance: Healthy, alert, active, cooperative, and in no distress Head: Normocephalic, without obvious abnormality, atraumatic Eyes: conjunctivae/corneas clear. PERRL, EOM's intact. Fundi benign. ENT: ENT exam normal, no neck nodes or sinus tenderness Neck: no adenopathy, no carotid bruit, no JVD, supple, symmetrical, trachea midline, and thyroid not enlarged, symmetric, no tenderness/mass/nodules Lungs: clear to auscultation bilaterally Heart: regular rate and rhythm, S1, S2 normal, no murmur, click, rub or gallop Abdomen: soft, non-tender; bowel sounds normal; no masses, no organomegaly Extremities: extremities normal, atraumatic, no cyanosis or edema Skin: Skin color, texture, turgor normal. No rashes or lesions Neurologic: Grossly normal Visual griffiths intact to confrontation bilaterally, no skew deviation appreciated, VOR intact, smooth and saccadic pursuits are within normal limits. Pupils are equally reactive to light and accommodation. Conjugate gaze. 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 Appears to be a coincidental finding, asymptomatic. Patient seems to have had a right-sided cataract surgery about 3-4 months ago, the afterwards he has been having ipwy-ua-vtnrjnil severity tension-type headaches around the right temporal/frontal region. Headache frequency and severity seems to be decreasing with time. The addition of topiramate has perhaps helped. Patient currently taking Tylenol on a daily basis Plan: Will need a stroke workup, will specifically need to rule out a source of embolization. CTA head and neck, transthoracic echocardiogram. Lipid profile, hemoglobin A1c Thirty day event monitor to look for occult atrial arrhythmias Continue aspirin, atorvastatin for secondary prevention Advised to check blood pressure twice daily for the next 2-4 weeks and keep a log of it Supportive care. Regular follow-up with PCP and oil winterizer Call 911 if symptoms of TIA/Stroke occur. Follow up with me in 3 months. Larissa Bach MD Vascular Neurologist [facility]) I have personally participated in the care of this patient. I have reviewed all pertinent clinical information, including history, physical exam, investigation results and plan. I spent 45 minutes caring for this patient, and more than 50% of that time was spent on counseling the patient/veneer puller/care team and coordinating care. Important Notice: This note was created with the assistance of a speech recognition program. While intending to generate a timely document that accurately reflects the content of the encounter, no guarantee can be provided that every grammatical or spelling mistake has been or will be identified or corrected. Thank you for your understanding. documented in this encounter [facility] 10-09-2023 Miscellaneous Notes Formattin g of this note might be different from the original. Recieved a referral for our Stroke Clinic Referral is uploaded into the Media folder in the patients chart. Dx: ISCHEMIC STROKE OF FRONTAL LOBE Referred by: SHAIKH LUIS ALBERTO MD Images from the original note were not included. [place] showed CVA. Headache x 3-4mos. Schedule new patient with Dr. Bach. Patient referred to [facility] however extended wait time. Will have him be seen in boss/tele initially and if follow up needed, can have patient seen in [place] then. Alayna, can you have imaging sent over from [facility] please Faxed a request to push over both images and reports. Currently waiting for response. Spoke with patient and made the appt documented in this encounter [facility] 10-09-2023 Telephone encount er Note Recieved a referral for our Stroke Clinic Referral is uploaded into the Media folder in the patients chart. Dx: ISCHEMIC STROKE OF FRONTAL LOBE Referred by: SHAIKH LUIS ALBERTO MD [facility] 10-09-2023 Telephone encount er Note Images from the original note were not included. [place]A. Headache x 3-4mos. Schedule new patient with Dr. Bach. Patient referred to [facility] however extended wait time. Will have him be seen in boss/tele initially and if follow up needed, can have patient seen in [place] then. Alayna, can you have imaging sent over from [facility] 10[facility]09[facility]23 Telephone encount er Note Faxed a request to push over both images and reports. Currently waiting for response. [facility] 10-09-2023 Telephone encount er Note Spoke with patient and made [facility]t [facility] Evaluation note Encounter Date Diagnosis Assessment [...] treatment plan. Patient left in stable condition [employer] Other 2023 Evaluation note* Encounter Date Diagnosis Assessment Notes Treatment Notes Treatment Clinical Notes Aug, Diarrhea (ICD-10 - R19.7) Patient reports that he has had some improvement and will continue Levsin as directed, fiber, and probiotic without change RTO 3 months [employer] Other 10-31-2023 Evaluation note* Encounter Date Diagnosis Assessment Notes Treatment Notes Treatment Clinical Notes Jun, Diarrhea (ICD-10 - R19.7) This patient states his diarrhea started about 4 months ago. At it's worst, he was only going once, but he had urgency & was a large amount. The frequency & severity have improved somewhat. He reported to [facility] ER last month. Lab & stool [...] colonoscopy. Return visit here in one month [employer] Other 10-01-2023 History general Narrative - Reported* Type Description Date Medical History Hypercholesteremia Surgical History tonsillectomy and adenoidectomy Surgical History lipoma Surgical History colonoscopy Surgical History cataract removal 06/2023 Hospitalization History see above Hospitalization History [facility] for diarrhea 05/2023 [employer] [facility] [employer] Other 10-01-2023 History general Narrative - Reported* Type Description Date Medical History Hypercholesteremia Medical History diarrhea Surgical History tonsillectomy and adenoidectomy Surgical History lipoma Surgical History colonoscopy Surgical History cataract removal 06/2023 Hospitalization History see above Hospitalization History [facility] for diarrhea 05/2023 [employer] [facility] [employer] Other 06-26-2023 Hospital Discharge instructions Patient Education [...] Follow these instructions at home: Medicines Take lrbx-noq-qlsidvr and prescription medicines only as told by [...] or the blood stops without treatment. Take wfns-chr-aeqwtom and prescription medicines only as told by your health care provider. Drink enough fluid to keep your urine pale yellow. This information is not intended to replace advice given to you by your health care provider. Make sure you discuss any questions you have with your health care provider. Document Revised: 04/26/2021 Document Reviewed: 04/26/2021 [employer] Patient Education 2022 [employer]. Follow Up Care 12/21/2022 09:24:19 With:ASHLEIGH POTTS, Chrissie Bradley, URL Address: [address] [place] [id number]- When:Within 1 Year(s) [facility] [id number] Hospital Discharge instructions Patient Education 12/21/2022 09:11:46 [...] Follow these instructions at home: Medicines Take cjsf-ozw-ftssjto and prescription medicines only as told by [...] or the blood stops without treatment. Take zqxo-cba-jowwotn and prescription medicines only as told by your health care provider. Drink enough fluid to keep your urine clear or pale yellow. This information is not intended to replace advice given to you by your health care provider. Make sure you discuss any questions you have with your health care provider. Document Released: 08/26/2006 Document Revised: 01/20/2020 Document Reviewed: 09/28/2017 [employer] Patient Education 2020 [employer]. Follow Up Care 11/29/2022 14:24:46 With:ASHLEIGH POTTS, Chrissie Bradley, URL Address: [address] [place] [phone]- When:02/20/2023 [facility] [id number] Evaluation note* Encounter Date Diagnosis Assessment Notes [...] understanding and is agreeable with treatment plan. [employer] Other 03-23-2023 Evaluation + Plan noteExtracted from: Title:SAFIA post op Author:Meek Avendano MD Date:11/29/22 Plan Transfer/Discharge: Transfer/Discharge Discharge when meets criteria ( From PACU to Ambulatory Surgery Unit, and To home ). Extracted from: Title:SAFIA GA Author:Meek Avendano MD Date:11/29/22 Plan [place] [employer] Anesthesiologists (ASA) physical status classification: Class II. Anesthetic Preoperative Plan: Anesthesia General. Future Appointments Appointment Date:12/21/2022 09:00:00 AM Scheduled Provider:Chrissie STILES MD Location:[facility] Appointment Type:URO Office Visit [facility]03-23-2023 Hospital Discharge instructions Patient Education 11/29/2022 10:49:22 Post Op Patient Instructions - FT (Custom) (Custom) Follow Up Care 10/30/2022 08:14:31 With:CHACHA WHALEY Address: [address] [place] [id number] [facility] (1) When: Unknown Comments:Call for followup appointment with Mindi Whaley PA-C or within the next 2-3 weeks. Should you haveproblems prior to that visit, please let us know.No shower for two days. Keep scrotal support and ice intermittently for discomfort.Have a great day! [facility]03-15-2023 Note [id number]:127[facility] 10-09-2022 Hospital Discharge instructions Patient Education [...] urethra. Follow these instructions at home: Take wjvx-wvc-ccgtbcm and prescription medicines only as told by [...] 08/26/2006 Document Revised: 07/21/2019 Document Reviewed: 09/30/2017 [employer] Patient Education 2020 [employer]. Follow Up Care 10/05/2022 09:45:41 With:ASHLEIGH POTTS, Chrissie Bradley, URL Address: [address] [place], [place] [id number]- When: Unknown [facility] [id number] Hospital Discharge instructions Patient Education 01/15/2022 14:02:51 [...] Follow these instructions at home: Medicines Take apyr-mgj-asgdlwj and prescription medicines only as told by [...] or the blood stops without treatment. Take tnwu-iit-mjewwav and prescription medicines only as told by your health care provider. Drink enough fluid to keep your urine clear or pale yellow. This information is not intended to replace advice given to you by your health care provider. Make sure you discuss any questions you have with your health care provider. Document Released: 08/26/2006 Document Revised: 01/20/2020 Document Reviewed: 09/28/2017 [employer] Patient Education 2019 [employer]. Follow Up Care 01/03/2022 11:13:58 With:Chino Flores Jr., MD, URO Address: [facility] [address], [place] [address]- When:01/15/2023 [facility] [id number] NotePROCEDURE: XR SHOULDER LT 2V or > COMPARISON: None. HISTORY: Pain of left shoulder joint FINDINGS: BONES:No acute fracture or dislocation. Moderate acromioclavicular and glenohumeral joint osteoarthropathy with joint space narrowing marginal osteophyte formation. Subchondral cystic change of the glenoid. SOFT TISSUES:Negative. No visible soft tissue swelling. EFFUSION:None visible. OTHER: Negative. IMPRESSION: Moderate osteoarthritis Electronically authenticated by: AQUILES SPAIN Date: 2021-11-22 11:29[facility] Future Appointments Appointment Date:01/21/2023 10:30:00 AM Scheduled Provider:Chino Flores Jr., MD Location:[facility] Appointment Type:URO Office Visit Diagnostic Tests Pending * Urine Cytology ([facility]) 01/15/22 [facility] Evaluation + Plan note Future Appointments Appointment Date:01/21/2023 10:30:00 AM Scheduled Provider:Chino Flores Jr., MD Location:[facility] Appointment Type:URO Office Visit [facility] Evaluation + Plan note Future Appointments Appointment Date:11/29/2022 10:00:00 AM Scheduled Provider: Location:[facility] Appointment Type:Surgery FT Appointment Date:01/21/2023 10:30:00 AM Scheduled Provider:Chino Flores Jr., MD Location:[facility] Appointment [facility]O [facility] Future Appointments Appointment Date:03/04/2023 08:30:00 AM Scheduled Provider:Chrissie STILES MD Location:[facility] Appointment Type:URO Office Visit [facility] Evaluation + Plan note Future Appointments Appointment Date:03/09/2024 08:00:00 AM Scheduled Provider:Chrissie STILES MD Location:[facility] Appointment Type:URO Office Visit [facility] Evaluation note* Diagnosis Cerebrovascular accident (CVA), unspecified mechanism ([facility])- Primary BRITTANY on CPAP Chronic tension-type headache, not intractable Chronic tension type headache Cerebrovascular accident within last 3 months Hyperglycemia Other abnormal glucose Palpitation Palpitations Cataract of right eye, unspecified cataract type [facility] - Reported* Type Description Date Medical History Hypercholesteremia Surgical History tonsillectomy and adenoidectomy Surgical History lipoma Surgical History colonoscopy Hospitalization History see above [employer] Other Hospital course Narrative No data available for this section [facility] Hospital Discharge instructions No data available for this section [facility] filedocumented in this encounter [facility] on filedocumented in this encounter [facility]ructionsNot on filedocumented in this encounter [facility] No data available for this section [facility] Summary Purpose Family History Unknown Family Member Name Dates Details Diagnosis unknown: [...] LEON is being seen for POC Dr. Stiles Scrotal xploratory, remove lipomas. * 81-year-old white male who was sent to me by Dr. Stiles for cardiac clearance prior to removal of lipoma from the scrotum. Presurgical testing revealed left axis deviation on EKG. The patient has no previous cardiac history but he tells me that he had at least 4 stress test in the last several years the last of which was in [facility] 2 and half years ago which was [...] I will retrieve the stress test from [facility]. Patient is considered low risk for the upcoming surgery and therefore I have no concern about his EKG. * 2 slight overweight, encouragement provided to lose weight. * 3 mildly abnormal EKG with left axis deviation of no clinical consequences. * The patient asked me if he can see me on an annual basis and I have no problem with that. Reason for Referral Specialty Diagnoses / Procedures Referred By Tamica mendieta Referred To Contact Diagnoses Cerebrovascular accident (CVA), unspecified mechanism ([facility]) Cerebrovascular accident within last 3 months Procedures Echo complete W/O contrast Larissa Bach MD [address] [place] [address], [address] [place] [address] [place] [address] [place] [address] Phone: [phone] Referral ID Status Reason Start Date Expiration Date V isits Requested Visits Authorized [id number] Pending Review 10/24/2023 10/23/2024 1 1 Specialty Diagnoses / Procedures Referred By Contac t Referred To Contact Radiology Diagnoses Cerebrovascular accident (CVA), unspecified mechanism ([facility]-HCC) Procedures CT angiogram carotid Larissa Bach MD [address] [place] [address], [address] [place] [address] [place] [address] [place] [address] Phone: [phone] Referral ID Status Reason Start Date Expiration Date V isits Requested Visits Authorized [id number] Pending Review 10/24/2023 10/23/2024 1 1 Specialty Diagnoses / Procedures Referred By Contac t Referred To Contact Radiology Diagnoses Cerebrovascular accident (CVA), unspecified mechanism ([facility]) Procedures CT angiogram head Larissa Bach MD [address] [place] [address], [address] [place] [address] [place] [address] [place] [address] Phone: [phone] Referral ID Status Reason Start Date Expiration Date V isits Requested Visits Authorized [id number] Pending Review 10/24/2023 10/23/2024 1 1 Additional Source Comments Patient Care team informatio n (unrecognized section and content) Allergy Specialist Relationship Specialty Start Date End Date Shaikh Poole MD [address] [place] [address] PCP - General Internal Medicine 07/02/23 Allergy Specialist Relationship Specialty Start Date End Date Shaikh Poole MD [address] [place] [address] PCP - General Internal Medicine 07/02/23 Allergy Specialist Relationship Specialty Start Date End Date Shaikh Poole MD [address] [place] [place] [address] PCP - General Internal Medicine 07/02/23 (unrecognized sect ion and content) No Status Records FoundNo Status Records FoundNo Status Records FoundNo Status Records FoundNo Status Records FoundNo Status Records Found INFORMATION SOURCE (unrecogn ized section and content) DATE CREATED AUTHOR 10/18/2022 [facility] DATE CREATED AUTHOR AUTHOR'S ORGANIZ ATION 11/22/2022 [facility] DATE CREATED AUTHOR AUTHOR'S ORGANIZ ATION 12/16/2022 [facility] DATE CREATED AUTHOR AUTHOR'S ORGANIZ ATION 03/05/2023 [facility] DATE CREATED AUTHOR AUTHOR'S ORGANIZ ATION 10/02/2023 [facility] EPIC DATE CREATED AUTHOR AUTHOR'S ORGANIZ ATION 10/14/2023 [facility] REASON FOR VISIT (unrecogniz ed section and content) Reason Onset Date Comments STROKE REFERRAL 10/09/2023 Reason Onset Date Comments Follow up 10/24/2023 FOR RECORDS PERTAINING TO PATIENTS WHO ARE [...] BE BASED ON THE PRIMARY CLINICAL RECORDS. [facility]. provides no warranty or guarantee of the accuracy or completeness of information in this document.
[2023-10-25 07:45] LABS: Estimated Average Glucose 108 mg/dL; Glycohemoglobin A1C 5.4 % (4.5-6.2)
[2023-10-25 08:28] LABS: Chol HDL Ratio 2.7; Cholesterol 128 mg/dL (<=200); Estimated GFR (African America >60 (>=60); Estimated GFR (Non-African Ame 60 (>=60); HDL Cholesterol 48 mg/dL (40-60); LDL Cholesterol Calculated 66.6 mg/dL; Triglycerides 67 mg/dL (<=150); VLDL CHOLESTEROL 13.4 mg/dL
== END 2023-10-25 06:48 | disposition home or self-care (01) ==
LOC: LAB 06:48
PROVIDERS: PCP Internal Medicine; Visit Provider Psychiatry & Neurology Neurology
DX: I63.9 Cerebral infarction, unspecified (principal); R00.2 Palpitations; R73.9 Hyperglycemia, unspecified
CPT/HCPCS: 36415; 80061; 82565; 83036

== ENCOUNTER 2024-06-18 09:07 | Outpatient (OUT) | payer MEDICARE, OTHER, SELFPAY ==
--- NOTE | 2024-06-18 09:17 | XR_ITS ---
The [address] [address] Patient Name: ALICIA DE LEON MRN: [id number] date: 1940 Sex: M Assigned Patient Location: [facility] Current Patient Location: [facility] Accession/Order Number: [id number] Exam Date: 06/18/2024 10:00 Report Date: 06/18/2024 11:54 At the request of: STACEY STERN Procedure: XR lumbar spine 6V w bending EXAMINATION: XR lumbar spine 6V w bending HISTORY: Back Pain Of Lumbosacral Region With Sciatica M54.40 ; low back pain for 2 weeks; right leg numbness; no known injury COMPARISON: CT abdomen pelvis 12/01/2021 FINDINGS: BONES: No fracture or spondylolisthesis. Marked sclerosis of contiguous endplates at L4-5 (Modic type II degenerative changes). Moderate degenerative facet arthropathy L4-5, L5-S1. DISC SPACES: Marked disc space narrowing L4-5, L5-S1. PARASPINOUS: Negative. No paraspinous abnormality is seen. OTHER: Negative. XR/XR lumbar spine 6V w bending IMPRESSION: 1. Marked degenerative disc disease and moderate facet arthropathy of the lower lumbar spine likely causing central canal and foraminal narrowing. 2. No appreciable change compared to prior study allowing for differences in technique. Electronically authenticated by: KINA BUI Date: 06/18/2024 11:54
--- OUTSIDE RECORDS SUMMARY | 2024-06-18 09:29 | XMS_ITS | CCD ---
Author Organization [facility] Care Team Providers Care Dental Professional Name Role Phone Antoni Cho Primary Care Physician [phone] ASHLEIGH, DR CHRISSIE Bradley Admitting Unavailable ASHLEIGH, DR CHRISSIE Bradley Attending Unavailable TAMMIE, DR CARRILLO Primary Care Unavailable GAYLESVILLE, DR CHRISSIE Bradley Consulting Unavailable NEF, JERMAIN Consulting Unavailable TAMMIE, DR CARRILLO Admitting Unavailable TAMMIE, DR CARRILLO Attending Unavailable TAMMIE, DR CARRILLO Primary Care Unavailable SCOTIA, DR AQUILES Lee Consulting Unavailable TAMMIE, DR CARRILLO Consulting Unavailable TAMMIE, DR CARRILLO Admitting Unavailable TAMMIE, DR CARRILLO Attending Unavailable TAMMIE, DR CARRILLO Primary Care Unavailable DREW, DR CARRILLO Consulting Unavailable NARDINIKINA Consulting Unavailable Tammie, Antoni Bradley Unavailable Unavailable Unavailable Tammie, Dr. Antoni Howell Primary Care Unava ilable Tammie, Dr. Antoni Howell Primary Care Unava ilTaryn Siddiqi Referring Unavailable Taryn Real Attending Unavailable Jeannie Mclean Unavailable Jama King Unavailable Shaikh Poole MD Primary Care Provider [phone] SHAIKH POOLE Referring Unavailable SHAIKH POOLE Primary Care Unavailable TJ, EHAD Attending Unavailable SHAIKH POOLE Referring Unavailable SHAIKH POOLE Primary Care Unavailable TJ, EHAD Attending Unavailable TJ, EHAD Referring Unavailable SHAIKH POOLE Primary Care Unavailable TJ, EHAD Attending Unavailable TJ, EHAD Referring Unavailable SHAIKH POOLE Primary Care Unavailable Shaikh Poole MD Primary Care Provider SHAIKH POOLE Attending Unavailable SHAIKH POOLE Attending Unavailable SHAIKH POOLE Attending Unavailable SHAIKH POOLE Attending Unavailable ANTONI CHO Primary Care Physician Chrissie SOTELO Attending Unavailable Allergies Allergy Classification Reported Allergen(s) Allergy Type Date of Onset Reaction(s) Facility (1 source) No Known Medication Allergies; Translations: [No Known Medication Allergies] Propensity to adverse reactions (disorder) [facility] Repository Medications Current Medications Medication Drug Class(es) Dates Sig (Normalized) Sig (Original) acetaminophen 325 mg / HYDROcodone bitartrate 5 mg oral tablet (1 source) Opioid Agonist Start: 11-29-2022 End: 12-01-2022 acetaminophen-hyd rocodone 325 mg-5 mg oral tablet 1 tab(s), Oral, q4hr Pain for 2 day(s), 7 tab(s), Refill(s) 0, [id number], 170, cm, 11/16/22 11:51:00 EST, Height/Length Dosing, 85, kg, 11/16/22 11:51:00 EST, Weight Dosing Start Date: 11/29/22 Stop Date: 12/01/22 Status: Ordered [id number] 200 actuat albuterol 0.09 mg/actuat metered dose [...] 14 days Aug, Active aspirin 81 mg delayed release oral tablet (3 sources) Platelet Aggregation Inhibitor, Nonsteroidal Anti-inflammatory Drug take 1 tablet by mouth once daily aspirin 81 mg EC tablet Take 1 tablet (81 mg) by mouth once daily. 0 Active take 1 tablet by elba th once daily in the morning aspirin 81 mg chewable tablet chew and swallow 1 tablet by mouth every morning 0 Active atorvastatin 20 mg oral tablet (3 sources) HMG-CoA Reductase Inhibitor Start: 10-08-2023 End: 01-06-2024 take 1 tablet by mouth once daily atorvastatin (Lipitor) 20 mg tablet Take 1 tablet (20 mg) by mouth once daily. 0 10/08/2023 01/06/2024 Active benzonatate 100 mg oral capsule (1 source) Non-narcotic Antitussive Start: 09-08-2023 take 1 capsule by mouth three times daily as needed Tessalon Perles 100 MG 1 capsule as needed Orally Three times a day for 7 days Aug, Active cephalexin 500 mg oral capsule (1 source) Cephalosporin Antibacterial Start: 11-29-2022 End: 12-04-2022 take 1 capsule by mouth every twelve hours cephalexin 500 mg Cap 500 mg = 1 cap(s), Oral, q12hr, X 5 day(s), # 10 cap(s), Refills(s) 0, Pharmacy: [id number], 170, cm, 11/16/22 11:51:00 EST, Height/Length Dosing, 85, kg, 11/16/22 11:51:00 EST, Weight Dosing Start Date: 11/29/22 Stop Date: 12/04/22 Status: Ordered hyoscyamine sulfate 0.125 mg oral tablet (6 sources) Start: 07-09-2023 take 1 tablet by mouth every eight hours Levsin 0.125 MG 1 tablet Orally three times a day for 30 days Jun, Active methylPREDNISolone 4 mg oral tablet (1 source) Corticosteroid Start: 09-08-2023 methylPREDNISolone 4 MG as directed Orally for 6 Aug, Active Multi Vitamin+ (5 sources) Start: 11-16-2022 Multi Vitamin+ See Instructions, Refill(s) 0, Prophylaxis Start Date: 11/16/22 Status: Ordered Multiple Vitamin (3 sources) Multiple Vitamin Active multivitamin (THERAGRAN) tablet (2 sources) take 1 tablet by mouth in the morning multivitamin (THERAGRAN) tablet Take 1 tablet by mouth in the morning. 0 Active multivitamin tablet (1 source) take 1 tablet by mouth once daily multivitamin tablet Take 1 tablet by mouth once daily. 0 Active naproxen 250 mg oral tablet (7 sources) Nonsteroidal Anti-inflammatory Drug take 1 tablet by mouth twice daily as needed for pain naproxen (Naprosyn) 250 mg tablet Take 1 tablet (250 mg) by mouth 2 times a day as needed for mild pain (1 - 3). 0 Active Naproxen Sodium 220 MG as directed Orally as needed Active Naproxen Sodium 220 MG Oral Capsule As needed for pain Quantity: 0 Refills: 0 Ordered: 21-Nov-2022 DO Active omeprazole 20 mg delayed release oral capsule (13 sources) Proton Pump Inhibitor Start: 08-28-2023 End: 02-24-2024 take 1 capsule by mouth every other day omeprazole (PriLOSEC) [address] capsule Take 1 capsule (20 mg) by mouth every other day. 0 08/28/2023 02/24/2024 Active Start: 11-29-2022 omeprazole Ref ills(s) 0, Indigestion Start Date: 11/29/22 Status: Ordered Omeprazole Activ e SUMAtriptan 50 mg oral tablet (2 sources) Serotonin-1b and Serotonin-1d Receptor Agonist Start: 10-01-2023 take 1 tablet by mouth once SUMAtriptan (IMITREX) 50 mg tablet take 1 tablet by mouth ONE TIME DOSE if needed for migraines for ... (REFER TO PRESCRIPTION NOTES). 0 10/01/2023 Active topiramate 50 mg oral tablet (4 sources) Start: 10-01-2023 End: 10-24-2023 take 1 tablet by mouth twice daily as needed topiramate (Topamax) 50 mg tablet Take 1 tablet (50 mg) by mouth 2 times a day as needed. 0 10/24/2023 Active ubrogepant 100 mg oral tablet [...] procedure., # 2 tab(s), Refills(s) 0, Pharmacy: [address], 170, cm, 01/02/22 9:19:00 EDT, Height/Length [...] Documented Da te Episodic/Chronic Acute cerebrovascular disease (5 sources) Cerebrovascular accident; Translations: [Cerebral infarction, unspecified] Onset: 4 10-24-2023 Chronic Cardiac dysrhythmias (2 sources) Palpitations; Translations: [Palpitations] Onset: 4 10-24-2023 Episodic Cataract (2 sources) Cataract of right eye; Translations: [Unspecified cataract] Onset: 4 10-25-2023 Chronic Diabetes mellitus without complication (2 sources) Hyperglycemia; Translations: [Hyperglycemia, unspecified] Onset: 4 10-24-2023 Episodic Disorders of lipid metabolism (3 sources) Hyperlipidemia, unspecified; Translations: [Mixed hyperlipidemia] Onset: 1 12-12-2023 Chronic Esophageal disorders (3 sources) Gastroesophageal reflux disease; Translations: [Gastro-esophageal reflux disease without esophagitis] Chronic Genitourinary symptoms and ill-defined conditions (16 sources) Blood in urine; Translations: [Gross hematuria] Onset: 2 Episodic Headache; including migraine (4 sources) Chronic tension-type headache; Translations: [Chronic tension-type headache, not intractable] Onset: 4 10-24-2023 Chronic Hyperplasia of prostate (19 sources) Benign prostatic hypertrophy with outflow obstruction; [...] 3 Episodic Other and unspecified benign neoplasm (3 sources) Lipoma (clinical) 12-21-2022 Episodic Other circulatory disease (1 source) History of cerebrovascular accident; Translations: [Personal history of transient ischemic attack (TIA), and cerebral infarction without residual deficits] 10-24-2023 Episodic Other circulatory disease (2 sources) Personal history of transient ischemic attack (TIA), and cerebral infarction without residual deficits; Translations: [Personal history of transient ischemic attack (TIA), and cerebral infarction without residual deficits] Onset: 4 Episodic Other diseases of kidney and ureters (5 sources) Acquired renal cyst without neoplastic change; Translations: [Cyst of kidney, acquired] Onset: 2 Episodic Other diseases of kidney and ureters (1 source) Urinary tract obstruction; Translations: [Other obstructive and reflux uropathy] Onset: 2 Episodic Other diseases of kidney and ureters (7 sources) Cyst of kidney 01-02-2022 Episodic Other gastrointestinal disorders (6 sources) Scrotal mass 10-09-2022 Episodic Other gastrointestinal disorders (2 sources) Diarrhea, unspecified Episodic Other male genital disorders (4 sources) Disorder of male genital organ; Translations: [Other specified disorders of the male genital organs] Onset: 3 Episodic Other male genital disorders (3 sources) Disorder of spermatic cord 12-21-2022 Episodic Other nutritional; endocrine; and metabolic disorders (3 sources) Overweight in adulthood with body mass index of 25 or more but less than 30; Translations: [Overweight] Onset: 4 12-12-2023 Episodic Residual codes; unclassified (8 sources) Obstructive sleep apnea syndrome; Translations: [Obstructive sleep apnea (adult) (pediatric)] Onset: 4 11-16-2022 Chronic Residual codes; unclassified (1 source) Obstructive sleep apnea (adult) (pediatric); Translations: [Obstructive sleep apnea (adult) (pediatric)] Onset: 4 Chronic Residual codes; unclassified (1 source) Pain, unspecified; Translations: [Pain, unspecified] Onset: 4 Episodic Screening and history of mental health and substance abuse codes (3 sources) Ex-smoker; Translations: [Personal history of tobacco use] Onset: 12-12-2023 Episodic Comment on above: quit 1978; Transient cerebral ischemia (1 source) Transient cerebral ischemia; Translations: [Transient cerebral ischemic attack, unspecified] 12-12-2023 Chronic Past or Other Problems Problem Classification Problem Date Documented Da te Episodic/Chronic Abdominal pain (4 sources) Unspecified abdominal pain; Translations: [UNSPECIFIED ABDOMINAL PAIN] Onset: 11-22-2021 Episodic Mood disorders (2 sources) Mood disorders Onset: 10-24-2023 10-24-2023 Other non-traumatic joint disorders (1 source) Pain in left shoulder; Translations: [PAIN IN LEFT SHOULDER] Onset: 11-23-2021 Episodic Unclassified (6 sources) Asymptomatic microscopic hematuria 10-09-2022 Unclassified (1 source) Acute cough R05.1 Unclassified (1 source) Onset: 12-12-2023 12-12-2023 Results Test Name Value Interpretation Reference Range Facility Ambulatory Visit Summaryon 0 03-09-2024 Ambulatory Visit Summary Ambulatory Visit Summary KINGRICHIE STEVE J :1940 Visit Date:03/09/2024 Ambulatory Visit Instructions Your Diagnosis 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 Discharge Vitals Heart Rate (Peripheral) 62 Respiratory Rate 18 Blood Pressure 130/60 Height 170 cm Height 67 in Weight 77.5 kg Weight 170.5 lb BMI 26.82 What to do next You Need to Schedule the Following Appointments Follow Up with Chrissie SOTELO MD, URL When: Where: [address] [facility] [address] [place] [id number]- Medications What How Much When Instructions Unchanged multivitamin (Multi Vitamin+) See instructions Contact prescribing physician if questions or concerns Unchanged omeprazole Contact prescribing physician if questions or concerns Allergies No Known Allergies No Known Medication Allergies Problems Ongoing - Any problem that you are currently receiving treatment for. Benign localized prostatic hyperplasia with lower urinary tract symptoms (LUTS) BPH with obstruction/lower urinary tract symptoms Gross hematuria Renal cyst Scrotal mass Spermatic cord cyst Historical - Any problem that you are no longer receiving treatment for. Asymptomatic microscopic hematuria Lipoma Patient Survey You may receive a survey via text or e-mail asking about your office visit. Please share your experience with us by completing your survey. We appreciate your feedback and thank you for choosing us for your care. Education Materials Benign Prostatic Hyperplasia Benign prostatic hyperplasia (BPH) is an enlarged prostate gland that is caused by the normal aging process. The prostate may get bigger as a man gets older. The condition is not caused by cancer. The prostate is a walnut-sized gland that is involved in the production of semen. It is located in front of the rectum and below the bladder. The bladder stores urine. The urethra carries stored urine out of the body. An enlarged prostate can press on the urethra. This can make it harder to pass urine. The buildup of urine in the bladder can cause infection. Back pressure and infection may progress to bladder damage and kidney (renal) failure. What are the causes? This condition is part of the normal aging process. However, not all men develop problems from this condition. If the prostate enlarges away from the urethra, urine flow will not be blocked. If it enlarges toward the urethra and compresses it, there will be problems passing urine. What increases the risk? This condition is more likely to develop in men older than 50 years. What are the signs or [...] relieve your symptoms, including: ? Medicines to shrin (more content not included)... Normal [facility] Urology Office/Clinic Noteon 03-09-2024 Urology Office/Clinic Note Urology Office/Clinic Note Chief Complaint 1 year follow up HPI Staff 1 year follow up Previous DX: asymptomatic microscopic hematuria, BPH w/LUTS, gross hematuria, renal cyst, scrotal mass, spermatic cord cyst, lipoma. No BPH medication. Dysuria: denies pain or burning Incomplete bladder emptying: denies Hematuria: denies visible blood Frequency: denies Urgency: denies Nocturia: 1-2x a night Stream: denies hesitancy, yes weak stream Leaking: denies Post void dripping: denies Wearing pads/ Depends: denies Urge incontinence: denies Stress incontinence: denies Incontinence without Sensory Awareness: denies Abdominal pain: denies Flank pain: denies Sexual complaints: denies History of Present Illness Tests reviewed: reviewed [...] PHQ Score Initial Depression Screen Score: 0 SCORE ROS - Provider Constitutional: denies weight loss, denies hot flashes. Eyes: denies eye problems. Gastrointestinal: denies nausea, denies vomiting. Cardiovascular: denies chest pain or angina. Integumentary: no dryness Musculoskeletal: denies musculoskeletal symptoms. ENMT: denies otolaryngeal symptoms. Respiratory: no shortness of breath. Heme/Lymph: denies easy bleeding tendency, denies easy bruising tendency. Psychiatric: no confusion, no anxiety. Genitourinary: See HPI. Physical Exam Vitals & Measurements HR: 62(Peripheral) RR: 18 BP: 130/60 HT: 67 in HT: 170 cm WT: 77.5 kg WT: 170.5 lb BMI: 26.82 General Appearance: alert, no distress, well nourished, well developed male. Genitourinary: normal scrotum, normal testes, normal urethra, normal epididymis, normal vas deferens/spermatic cord. Old scars present. Assessment/Plan 1. 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 No Inflammation, granuloma, necrosis or Epithelial component identified. [1] And mature adipose tissue consistent with Angiolipoma. [2] No issues since. Denies gross hematuria. Pt knows to notify office if he were to experience gross hematuria or clots or worsening urination. PE: wnl. scars bilaterally on scrotum. no recurrence. Follow up PRN. Pt understands and agrees with plan. 2. BPH with obstruction/lower urinary tract symptoms (N40.1: Benign prostatic hyperplasia with lower urinary tract symptoms) UA today negative for blood and infection. IPSS 9. Not taking any BPH meds. 3. Renal cyst (N28.1: Cyst of kidney, acquired) Left upper pole exophytic renal cyst, 1.3cm. No hydronephrosis, no hydroureter. Seen on prior CT [1] Surveillance not required. Overall the patient is doing quite well. He said no evidence of gross blood or clots in the urine. Negative urinalysis for hematuria today. Examination of the scrotum reveals no evidence of any recurrent cysts or masses. Surgical scars present. At this point I feel he can see me on a as needed basis and he agrees with the plan Follow-up With When Contact Information Chrissie SOTELO MD, URL [address] [place] [id number]- Additional Instructions: PRN Patient Education Benign Prostatic Hyperplasia I, Lana Lancaster, personally scribed for Dr. Sotelo on 03/09/2024 08:22:31. . Documentation recorded by the scribe, Lana Lancaster, accurately reflects the services(s) I performed and decisions made by me. Authenticated by Dr. Sotelo on 03/09/2024 08:23:21. Portions of this record may have been created with voice recognition artificial intelligence software, specifically [employer], [employer] and or [employer]. Substitutions may have occurred due to the inherent limitations of voice recognition and artificial intelligence software. Problem List/Past Medical History Ongoing Benign localized prostatic hyperplasia with lower urinary tract symptoms (LUTS) BPH with obstruction/lower urinary tract symptoms Gross hematuria Renal cyst Scrotal mass Spermatic cord cyst Historical Asymptomatic microscopic hematuria Lipoma Procedure/Surgical History Scrotal exploration (11/29/2022), Spermatic cord (11/29/2022), Cystoscopy (01/15/2022), Cataract, Colonoscopy, Tonsillectomy. Medications Multi Vitamin+, See Instructions omeprazole Allergies No Known Allergies No Known Medication Allergies Social History Alcohol - High Risk, 11/16/2022 Current, Beer, Daily, 11/16/2022 Substance Abuse - Denies Substance Abuse, 11/16/2022 Tobacco - Denies Tobacco (more content not included)... Normal [facility] Comment on above: Result Comment: Elec tronically Signed By: Chrissie SOTELO MD\.br\Date and Time Signed: 03/09/24 08:24 EDT\.br\Electronically Co-Signed By: Lana Lancaster\.br\Date and Time Co-Signed: 03/09/24 08:[address] CTA CAROTIDon 11-28-[address] CTA CAROTID Examination: CTA carotids Clinical History: Cerebrovascular accident (CVA), unspecified mechanism (CMS-HCC) Stroke in August 2023. Assess embolic source Comparison: None CT CTA CAROTID Procedure: Multidetector CT angiogram performed through the cervical portion of the carotid arteries without complication, including source images and maximum intensity projection 3-D images displayed and reviewed on an independent PACS workstation by the radiologist. Automated exposure control was utilized. The [place] Symptomatic Carotid Endarterectomy Trial (NASCET)calculation of ICA stenosis percentage using the following formula with a threshold of 60 to 70%: % ICA stenosis = (1 - [narrowest ICA diameter/diameter normal distal cervical ICA]) x 100 Findings: 3-D images confirm the source images. Within the limitations of CT angiography, the vessels are normal in course and caliber with no aneurysm, dissection, or occlusion. No hemodynamically significant stenosis of the internal carotid artery relative to the distal internal carotid artery diameter. Flow is demonstrated within bilateral vertebral arteries, and bilateral internal, external, and common carotid arteries. IMPRESSION: * No hemodynamically significant stenosis of the internal carotid artery identified. All CT scans at this facility use dose modulation, iterative reconstruction, and/or weight based dosing when appropriate to reduce radiation dose to as low as reasonably achievable. For Reference: Carotid Doppler: Severe (>70%) carotid artery stenosis is diagnosed if at least two of the following parameters are present: PSV >140 cm/s, end-diastolic velocity >125 cm/s, and ICA/CCA ratio >3, as well as >50% ICA diameter reduction on the transverse B-mode images. Decreased flow velocities <50 cm/s and an extensive lesion on B-mode are interpreted as near occlusion. For Carotid doppler reports, click Chart review, then cardiovascular tab at top 0 Finalized by Mckay Sheldon MD on 11/28/2023 12:17 PM Normal [facility] CT CTA HEADon 11-28-[address] CTA HEAD History: Cerebrovascular accident (CVA), unspecified mechanism (CMS-HCC) Procedure: CT CTA HEAD Multidetector CT angiogram performed with IV contrast through the [place] using 3 -D Maximum intensity projection reconstructions constructed under concurrent physician supervision on a independent workstation. Arterial blood flow was measured to assist the stroke clinical team in the diagnosis of large vessel occlusion in patients undergoing screening for acute ischemic stroke using Rapid AI software when clinically indicated. Automated exposure control was utilized. All CT scans at this facility use dose modulation, iterative reconstruction, and/or weight based dosing when appropriate to reduce radiation dose to as low as reasonably achievable. Findings: There is grossly no aneurysm or major vessel occlusion of the [place], within limitations of CT. Flow is demonstrated within the vertebral arteries, basilar artery, bilateral posterior cerebral arteries, middle cerebral arteries and anterior cerebral arteries. 3D reformatted images confirm the source data findings. IMPRESSION: * Unremarkable CT angiogram [place]. * If you have high clinical suspicion for occult process such as an infarct consider CT perfusion and brain MRI. 0 Finalized by Mckay Sheldon MD on 11/28/2023 12:33 PM Normal [facility] COVID + FLU Quick Testingon 09-08-2023 SARS-CoV-2 (COVID-19) RNA RANDALL+probe Ql (Unsp spec) Negative [facility] Other COVID + FLU Quick Testing Positive [facility] Other COVID + FLU Quick Testing Negative [facility] Other Office Visit (Cardiology)on 11-21-2022 Follow-up visit Diagnoses/Problems [...] up in 1 year. Retrieve stress from [place] The provider reviewed the following test(s) and [...] years the last of which was in [place] 2 and half years ago which was [...] physical examination was only remarkable for overweight. Assessment/recommen dations: 1?patient need cardiac clearance prior to scrotal lipoma surgery. By definition this is a low risk surgery. The patient has no major risk factor for CAD and is asymptomatic from a cardiovascular standpoint. There will be no further cardiac investigations needed. I will retrieve the stress test from [place]. Patient is considered low risk for the [...] Vital Signs Recorded: 21Nov2022 10:36AMRecorded: 21Nov2022 10:34AM [id number], LUE, Bpyeisp292, RUE, Sitting [id number], LUE, Uwosizm10, RUE, Sitting Heart Rate67, Apical Height5 ft 7 in Entjwq014 lb BMI Xovhxobkih49.98 kg/m2 BSA Calculated1.96 Tobacco Useb) No PHQ-2 [...] no masses (more content not included)... Normal [facility] Tobacco Screening.on 023 Adult depression screening assessment No [facility] 250 DO Work Phone: Fall risk assessment a) No falls within the last year [facility] 250 DO Work Phone: Tobacco use status [facility] b) No [facility] 250 DO Work Phone: CHEMISTRYOrdered By: SYSTEM SYSTEM on 11-16-2022 Anion gap [Moles/Vol] 9 mmol/L Normal 6 - 16 mEq/L F C Remisol Calcium [Mass/Vol] 9.1 mg/dL Normal 8.9 - 11. 1 mg/dL FT Remisol Chloride [Moles/Vol] 105 mmol/L Normal 101 - 1 11 mmol/L [facility] Remisol CO2 [Moles/Vol] 29 mmol/L Normal 21 - 31 mmol/L [facility] Remisol Creatinine [Mass/Vol] 1.1 mg/dL Normal 0.5 - 1.3 mg/dL FT Remisol GFR/1.73 sq M.predicted among blacks MDRD (S/P/Bld) [Vol rate/Area] mL/min/1.73 m2 Normal >=59mL/min/1 .73 m2 FT Chem S GFR/1.73 sq M.predicted among non-blacks MDRD (S/P/Bld) [Vol rate/Area] mL/min/1.73 m2 Normal >=59mL/min/1 .73 m2 [facility] Chem S Glucose [Mass/Vol] 73 mg/dL Normal 55 - 199 mg/dL [facility] Remisol Potassium [Moles/Vol] 4.1 mmol/L Normal 3.5 - 5.3 mmol/L [facility] Remisol Sodium [Moles/Vol] 139 mmol/L Normal 135 [...] - 1 2.5 second(s) [facility] Auto Coag HEMATOLOGYOrdered By: SYSTEM SYSTEM on 11-16-2022 Basophils/100 WBC (Bld) 0.0 % Normal 0.0 - 2.0 % [facility] HemeAutoSS Basophils/Leukocytes Auto (Bld) [Pure # fraction] 0.0 E9/L Normal 0.0 - 0.2 E9/L [facility] HemeAutoSS Eosinophils/100 WBC (Bld) 6.6 % Normal 0.0 - 8.0 % [facility] HemeAutoSS Eosinophils/Leukocytes Auto (Bld) [Pure # fraction] 0.3 E9/L Normal 0.0 - 0.5 E9/L [facility] HemeAutoSS Lymphocytes/100 WBC (Bld) 34.7 % Normal 14.0 - 50.0 % [facility] HemeAutoSS Lymphocytes/Leukocytes Auto (Bld) [Pure # fraction] 1.7 E9/L Normal 1.0 - 4.0 E9/L [facility] HemeAutoSS Monocytes/100 WBC (Bld) 11.5 % Normal 4.0 - 14.0 % [facility] HemeAutoSS Monocytes/Leukocytes Auto (Bld) [Pure # fraction] 0.6 E9/L Normal 0.2 - 1.0 E9/L [facility] HemeAutoSS Neutrophils/100 WBC (Bld) 47.2 % Normal 36.0 - 75.0 % [facility] HemeAutoSS Neutrophils/Leukocytes Auto (Bld) [Pure # fraction] 2.3 E9/L [...] Normal 4.0 - 11.0 E9/L [facility] HemeAutoSS URINALYSISOrdered By: Jayme Ramirez on 11-16-2022 Bacteria [...] AM) Normal Negative [facility] UA Auto SS Wingo.plasma/Wingo .RBC (Bld) [Mass ratio] 0-3 /HPF Normal 0-3/HPF [...] [facility] UA Auto SS Urobilinogen Qn (U) [id number] {Jaleel'U}/dL Normal 0.0 - 1.0 EU/dL [facility] UA Auto SS WBC Auto Ql (U) Negative (11/16/22 9:55 AM) Normal Negative [facility] UA Auto SS WBC LM.HPF (Urine sed) [#/Area] 0-5 /HPF Normal 0-5/HPF [facility] UA Auto SS US SCROTUMon 10-17-2022 US SCROTUM EXAM: US [...] by: JERMAIN BROWN Date: 2022-10-17 15:[address] [facility] [address] ABD/PELV W CONon 12-03-19 CT ABD/PELV [...] KINA MAHMOOD Date: 2021-12-02 08:29 Normal [facility] CBC AUTO DIFFon 11-22-2021 BASO # 0.0 103/ul Normal 0.0-0.1 [facility] Comment on above: Performed By: #### C BC #### [facility] [address] [place], [place] [address] Dr. Ever Kenny Basophils/100 WBC (Bld) 0.2 % Normal 0.2-2.0 [facility] Comment on above: Performed By: #### C BC #### [facility] [address] [place], [place] [address] Dr. Ever Kenny EO # 0.3 103/ul Normal 0.0-0.7 [facility] Comment on above: Performed By: #### C BC #### [facility] [address] [place] [address] Dr. Ever Kenny Eosinophils/100 WBC (Bld) 5.5 % Normal 0.9-7.0 [facility] Comment on above: Performed By: #### C BC #### [facility] [address] [place] [address] Dr. Ever Kenny Erythrocyte distribution width (RBC) [Ratio] 12.8 % Normal 11.0-15.0 [facility] Comment on above: Performed By: #### C BC #### [facility] [address] [place] [address] Dr. Ever Kenny Hematocrit (Bld) [Volume fraction] 47.1 % Normal 42.0-54.0 [facility] Comment on above: Performed By: #### C BC #### [facility] [address] [place] [address] Dr. Ever Kenny Hemoglobin (Bld) [Mass/Vol] 15.2 g/dL Normal 14.0-18.0 [facility] Comment on above: Performed By: #### C BC #### [facility] [address] [place] [address] Dr. Ever Kenny IG # 0.03 10e3/ul Normal 0.00-0.03 [facility] Comment on above: Performed By: #### C BC #### [facility] [address] [place] [address] Dr. Ever Kenny IG % 0.5 % Normal 0.0-0.5 [facility] Comment on above: Performed By: #### C BC #### [facility] [address] [place] [address] Dr. Ever Kenny LYMPH # 1.7 103/ul Normal 1.2-3.8 [facility] Comment on above: Performed By: #### C BC #### [facility] [address] [place] [address] Dr. Ever Kenny Lymphocytes/100 WBC (Bld) 26.9 % Normal 20.5-60.0 [facility] Comment on above: Performed By: #### C BC #### [facility] [address] [place] [address] Dr. Ever Kenny MANUAL DIFF REQ NO Normal [facility] Comment on above: Performed By: #### C BC #### [facility] [address] [place] [address] Dr. Ever Kenny MCH (RBC) [Entitic mass] 31.6 pg Normal 25.9-34.0 [facility] Comment on above: Performed By: #### C BC #### [facility] [address] [place] [address] Dr. Ever Kenny MCHC (RBC) [Mass/Vol] 32.3 g/dL Normal 29.9-35.2 [facility] Comment on above: Performed By: #### C BC #### [facility] [address] [place] [address] Dr. Ever Kenny MCV (RBC) [Entitic vol] 97.9 fL Critically high 80.0-94.0 [facility] Comment on above: Performed By: #### C BC #### [facility] [address] [place] [address] Dr. Ever Kenny MONO # 0.7 103/ul Normal 0.3-0.8 [facility] Comment on above: Performed By: #### C BC #### [facility] [address] [place] [address] Dr. Ever Kenny Monocytes/100 WBC (Bld) 11.1 % Normal 1.7-12.0 [facility] Comment on above: Performed By: #### C BC #### [facility] [address] [place] [address] Dr. Ever Kenny NEUT # 3.4 103/ul Normal 1.4-6.5 [facility] Comment on above: Performed By: #### C BC #### [facility] [address] [place] [address] Dr. Ever Kenny Neutrophils/100 WBC (Bld) 55.8 % Normal 43.0-75.0 [facility] Comment on above: Performed By: #### C BC #### [facility] [address] [place] [address] [address] Ever Kenny Platelet mean volume (Bld) [Entitic vol] 9.2 fL Critically low 9.5-13.5 [facility] Comment on above: Performed By: #### C BC #### [facility] [address] [place] [address] Dr. Ever Kenny PLT 222 103/ul Normal 150-450 [facility] Comment on above: Performed By: #### C BC #### [facility] [address] [place] [address] Dr. Ever Kenny RBC 4.81 106/ul Normal 4.70-6.10 [facility] Comment on above: Performed By: #### C BC #### [facility] [address] [place] [address] Dr. Ever Kenny WBC 6.1 103/ul Normal 4.0-11.0 [facility] Comment on above: Performed By: #### C BC #### [facility] [address] [place] [address] Dr. Ever Kenny LIPID PROFILEon 11-22-2021 CHOL-HDL RATIO NORM SEE BELOW Normal [facility] Comment on above: Result Comment: 3.3 - 4.4 LOW RISK 4.4 - 7.1 AVERAGE RISK 7.1 - 11.0 MODERATE RISK >11.0 HIGH RISK Performed By: #### L IPID, CMP #### [facility] [address] [place] [address] Dr. Ever Kenny Cholesterol [Mass/Vol] 206 mg/dL Critically high <=200 [facility] Comment on above: Performed By: #### L IPID, CMP #### [facility] [address] [place] [address] Dr. Ever Kenny Cholesterol in HDL [Mass/Vol] 57 mg/dL Normal [facility] Comment on above: Performed By: #### L IPID, CMP #### [facility] [address] [place] [address] Dr. Ever Kenny Cholesterol in LDL [Mass/Vol] 129.4 mg/dL Normal [facility] Comment on above: Performed By: #### L IPID, CMP #### [facility] [address] [place] [address] [address] Ever Kenny Cholesterol.total/Chol esterol in HDL [Mass ratio] 3.6 {ratio} Normal [facility] Comment on above: Performed By: #### L IPID, CMP #### [facility] [address] [place] [address] [address] Ever Kenny HDL NORMAL > or = 60 mg/dl - LOW CARDIOVASCULAR RISK <40 mg/dl - HIGH CARDIOVASCULAR RISK Normal [facility] Comment on above: Performed By: #### L IPID, CMP #### [facility] [address] [place] [address] [address] Ever Kenny LDL CALC NORMAL SEE BELOW Normal [facility] Comment on above: Result Comment: <100 mg/dl OPTIMAL 100 - 129 mg/dl NEAR OR ABOVE OPTIMAL 130 - 159 mg/dl BORDERLINE HIGH 160 - 189 mg/dl HIGH >190 mg/dl VERY HIGH Performed By: #### L IPID, CMP #### [facility] [address] [place] [address] [address] Ever Kenny Triglyceride [Mass/Vol] 98 mg/dL Normal <=150 [facility] Comment on above: Performed By: #### L IPID, CMP #### [facility] [address] [place] [address] [address] Ever Kenny VLDL CALC 19.6 mg/dL Normal [facility] Comment on above: Performed By: #### L IPID, CMP #### [facility] [address] [place] [address] [address] Ever Kenny PROF 14(COMP METB)on 022 Albumin [Mass/Vol] 3.9 g/dL Normal 3.5-5.0 [facility] Comment on above: Performed By: #### L IPID, CMP #### [facility] [address] [place] [address] [address] Ever Kenny Albumin/Globulin [Mass ratio] 1.3 {ratio} Normal [facility] Comment on above: Performed By: #### L IPID, CMP #### [facility] [address] [place] [address] [address] Ever Kenny ALP [Catalytic activity/Vol] 52 U/L Normal 38-126 [facility] Comment on above: Performed By: #### L IPID, CMP #### [facility] [address] [place] [address] [address] Ever Kenny ALT [Catalytic activity/Vol] 24 U/L Normal 21-72 [facility] Comment on above: Performed By: #### L IPID, CMP #### [facility] [address] [place] [address] [address] Ever Kenny Anion gap [Moles/Vol] 9.8 mmol/L Normal [facility] Comment on above: Performed By: #### L IPID, CMP #### [facility] [address] [place] [address] [address] Ever Kenny AST [Catalytic activity/Vol] 15 U/L Critically low 17-59 [facility] Comment on above: Performed By: #### L IPID, CMP #### [facility] [address] [place] [address] [address] Ever Kenny Bilirubin [Mass/Vol] 0.7 mg/dL Normal 0.2-1.3 [facility] Comment on above: Performed By: #### L IPID, CMP #### [facility] [address] [place] [address] [address] Ever Kenny Calcium [Mass/Vol] 8.8 mg/dL Normal 8.4-10.2 [facility] Comment on above: Performed By: #### L IPID, CMP #### [facility] [address] [place] [address] [address] Ever Kenny Chloride [Moles/Vol] 106 mmol/L Normal 98-107 [facility] Comment on above: Performed By: #### L IPID, CMP #### [facility] [address] [place] [address] [address] Ever Kenny CO2 [Moles/Vol] 29.5 mmol/L Normal 22.0-30.[address] [facility] Comment on above: Performed By: #### L IPID, CMP #### [facility] [address] [place] [address] [address] Ever Kenny Creatinine [Mass/Vol] 1.05 mg/dL Normal 0.66-1.25 [facility] Comment on above: Performed By: #### L IPID, CMP #### [facility] [address] [place] [address] [address] Ever Kenny EGFR-AF MONTSERRATIAN >60 Normal >=[address] [facility] Comment on above: Performed By: #### L IPID, CMP #### [facility] [address] [place] [address] [address] Ever Kenny EGFR-NON AF MONTSERRATIAN >60 Normal >=60 [facility] Comment on above: Performed By: #### L IPID, CMP #### [facility] [address] [place] [address] Dr. Ever Kenny Globulin (S) [Mass/Vol] 2.9 g/dL Normal [facility] Comment on above: Performed By: #### L IPID, CMP #### [facility] [address] [place] [address] [address] Ever Kenny Glucose [Mass/Vol] 105 mg/dL Normal 74-106 [facility] Comment on above: Performed By: #### L IPID, CMP #### [facility] [address] [place] [address] [address] Ever Kenny Potassium [Moles/Vol] 4.3 mmol/L Normal 3.4-5.0 [facility] Comment on above: Performed By: #### L IPID, CMP #### [facility] [address] [place] [address] [address] Ever Kenny Protein [Mass/Vol] 6.8 g/dL Normal 6.1-8.2 [facility] Comment on above: Performed By: #### L IPID, CMP #### [facility] [address] [place] [address] [address] Ever Kenny Sodium [Moles/Vol] 141 mmol/L Normal 137-145 [facility] Comment on above: Performed By: #### L IPID, CMP #### [facility] [address] [place] [address] [address] Ever Kenny Urea nitrogen [Mass/Vol] 19.0 mg/dL Normal 9.0-20.0 [facility] Comment on above: Performed By: #### L IPID, CMP #### [facility] [address] [place] [address] Dr. Ever Kenny Urea nitrogen/Creatinine [Mass ratio] 18.1 mg/mg Normal [facility] Comment on above: Performed By: #### L IPID, CMP #### [facility] [address] [place] [address] Dr. Ever Kenny UA (CLEAN/CATCH) MICROSCOPIC IF INDICATEon 11-22-2021 Bilirubin Ql (U) Negative Normal NEGATIVE [facility] Comment on above: Performed By: #### FAIZA WARRENICRO #### [facility] [address] [place] [address] Dr. Ever Kenny Clarity (U) CLEAR Normal CLEAR [facility] Comment on above: Performed By: #### FAIZA WARRENICRO #### [facility] [address] [place] [address] Dr. Ever Kenny Color (U) LT. YELLOW Normal YELLOW [facility] Comment on above: Performed By: #### Will RICH UMICRO #### [facility] [address] [place] [address] Dr. Ever Kenny Glucose Ql (U) Negative Normal NEGATIVE [facility] Comment on above: Performed By: #### U LAYLA UMICRO #### [facility] [address] [place] [address] Dr. Ever Kenny Hemoglobin Ql (U) MODERATE Abnormal NEGATIVE [facility] Comment on above: Performed By: #### U LAYLA UMICRO #### [facility] [address] [place] [address] Dr. Ever Kenny Ketones Ql (U) Negative Normal NEGATIVE [facility] Comment on above: Performed By: #### PARKER WARREN #### [facility] [address] [place] [address] [address] Ever Kenny LEUKOCYTES Negative Normal NEGATIVE [facility] Comment on above: Performed By: #### SUSHIL WARRENRO #### [facility] [address] [place] [address] [address] Ever Kenny Nitrite Ql (U) Negative Normal NEGATIVE [facility] Comment on above: Performed By: #### SUSHIL WARRENRO #### [facility] [address] [place] [address] [address] Ever Kenny pH (U) 7.0 [pH] Normal 5-9 [facility] Comment on above: Performed By: #### PARKER WARREN #### [facility] [address] [place] [address] Dr. Ever Kenny SPEC GRAVITY 1.010 Normal 1.005-<=1.02 5 [facility] Comment on above: Performed By: #### PARKER WARREN #### [facility] [address] [place] [address] Dr. Ever Kenny UA PROTEIN Negative Normal NEGATIVE/ TRACE [facility] Comment on above: Performed By: #### PARKER WARREN #### [facility] [address] [place] [address] Dr. Ever Kenny UR MICRO IND INDICATED Normal [facility] Comment on above: Performed By: #### PARKER WARREN #### [facility] [address] [place] [address] Dr. Ever Kenny Urobilinogen Qn (U) 0.2 {Jaleel'U}/dL Normal 0.2 - 1. 0 [facility] Comment on above: Performed By: #### PARKER WARREN #### [facility] [address] [place] [address] Dr. Ever Kenny URINE MICROSCOPIC ONLYon BACTERIA NONE SEEN Normal NONE SEEN [facility] Comment on above: Performed By: #### SUSHIL WARRENRO #### [facility] [address] [place] [address] [address] Ever Kenny Bacteria identified Cx Nom (U) NOT INDICATED Normal [facility] Comment on above: Performed By: #### U LAYLA UMICRO #### [facility] [address] [place] [address] [address] Ever Kenny CAST NONE SEEN Normal NONE SEEN [facility] Comment on above: Performed By: #### U LAYLA UMICRO #### [facility] [address] [place] [address] Dr. Ever Kenny Crystals LM Nom (Urine sed) NONE SEEN Normal NONE SEEN [facility] Comment on above: Performed By: #### U LAYLA UMICRO #### [facility] [address] [place] [address] Dr. Ever Kenny Epithelial cells LM Ql (Urine sed) NONE SEEN Normal NONE SEEN /RARE [facility] Comment on above: Performed By: #### Will RICH UMICRO #### [facility] [address] [place] [address] Dr. Ever Kenny MUCOUS SMALL Abnormal NONE SEEN [facility] Comment on above: Performed By: #### Will RICH UMICRO #### [facility] [address] [place] [address] Dr. Ever Kenny RBC 0-2 Normal 0-2 [facility] Comment on above: Performed By: #### Will RICH UMICRO #### [facility] [address] [place] [address] [address] Ever Kenny SPERMATOZOA, UR PRESENT Abnormal [facility] Comment on above: Performed By: #### U LAYLA UMICRO #### [facility] [address] [place] [address] Dr. Ever Kenny WBC NONE SEEN Normal NONE SEEN [facility] Comment on above: Performed By: #### Will RICH UMICRO #### [facility] [address] [place] [address] Dr. Ever Kenny Vital Signs Date Time Vital Sign Value Performing Clinician Facility 03-09-2024 07:58-0400 Blood Pressure Location Chrissie SOTELO [facility] 03-09-2024 07:58-0400 Diastolic blood pressure 60 mm[Hg] Chrissie SOTELO [facility] 03-09-2024 07:58-0400 Heart rate 62 /min Chrissie SOTELO [facility] 03-09-2024 07:58-0400 Respiratory rate 18 /min Chrissie SOTELO [facility] 03-09-2024 07:58-0400 Systolic blood pressure 130 mm[Hg] Chrissie SOTELO [facility] 12-12-2023 11:23-0400 Body height 170.2 cm Taryn Real MD Work Phone: [facility] 12-12-2023 11:23-0400 Body mass index (BMI) [Ratio] 26.63 kg/m2 Taryn Real MD Work Phone: [facility] 12-12-2023 11:23-0400 Body weight 77.11 kg Taryn Real MD Work Phone: [facility] 12-12-2023 11:23-0400 Diastolic blood pressure 70 mm[Hg] Taryn Real MD Work Phone: [facility] 12-12-2023 11:23-0400 Heart rate 62 /min Taryn Real MD Work Phone: [facility] 12-12-2023 11:23-0400 Systolic blood pressure 128 mm[Hg] Taryn Real MD Work Phone: [facility] 10-24-2023 10:19-0500 Body height 170.2 cm Larissa Bach MD Work Phone: [facility] 10-24-2023 10:19-0500 Body mass index (BMI) [Ratio] 26.07 kg/m2 Larissa Bach MD Work Phone: [facility] 10-24-2023 10:19-0500 Body weight 75.52 kg Larissa Bach MD Work Phone: [facility] 10-24-2023 10:19-0500 Diastolic blood pressure 70 mm[Hg] Larissa Bach MD Work Phone: [facility] 10-24-2023 10:19-0500 Heart rate 72 /min Larissa Bach MD Work Phone: [facility] 10-24-2023 10:19-0500 Systolic blood pressure 126 mm[Hg] Larissa Bach MD Work Phone: [facility] 09-08-2023 12:00-0500 Body height 168.91 cm Jeannie Mclean Other [facility] Other 09-08-2023 12:00-0500 Body mass index (BMI) [Ratio] 26.8 kg/m2 Jeannie Mclean Other [facility] Other 09-08-2023 12:00-0500 Body temperature 98.9 [degF] Jeannie Mclean Other [facility] Other 09-08-2023 12:00-0500 Body weight 76.48 kg Jeannie Mclean Other [facility] Other 09-08-2023 12:00-0500 Respiratory rate 18 /min Jeannie Mclean Other [facility] Other 09-08-2023 12:00-0500 SaO2% (BldA) [Mass fraction] 93 % Jeannie Mclean Other [facility] Other 08-13-2023 10:20-0500 Body height 168.91 cm Jama Scovanner Other [facility] Other 08-13-2023 10:20-0500 Body mass index (BMI) [Ratio] 27.42 kg/m2 Jama Scovanner Other [facility] Other 08-13-2023 10:20-0500 Body weight 78.25 kg Jama Scovanner Other [facility] Other 08-13-2023 10:20-0500 Diastolic blood pressure 70 mm[Hg] Jama Scovanner Other [facility] Other 08-13-2023 10:20-0500 Systolic blood pressure 132 mm[Hg] Jama Scovanner Other [facility] Other 07-09-2023 10:20-0400 Body height 168.91 cm Jama Scovanner Other [facility] Other 07-09-2023 10:20-0400 Body mass index (BMI) [Ratio] 27.34 kg/m2 Jama Scovanner Other [facility] Other 07-09-2023 10:20-0400 Body weight 78.02 kg Jama Scovanner Other [facility] Other 07-09-2023 10:20-0400 Diastolic blood pressure 67 mm[Hg] Jama Scovanner Other [facility] Other 07-09-2023 10:20-0400 Systolic blood pressure 129 mm[Hg] Jama Scovanner Other [facility] Other 03-04-2023 09:03-0400 Blood Pressure Location Chrissie [facility] 03-04-2023 09:03-0400 Diastolic blood pressure 78 mm[Hg] Chrissie [facility] 03-04-2023 09:03-0400 Heart rate 68 /min [facility]ie [facility] 03-04-2023 09:03-0400 Respiratory rate 16 /min [facility]ie [facility] [employer] [facility] 03-04-2023 09:03-0400 Systolic blood pressure 128 mm[Hg] [facility]ie [facility] 12-18-2022 11:15-0400 Body height 168.91 cm Jeannie Mclean Other [facility] Other 12-18-2022 11:15-0400 Body mass index (BMI) [Ratio] 29.41 kg/m2 Jeannie Mclean Other [facility] Other 12-18-2022 11:15-0400 Body temperature 97.1 [degF] Jeannie Mclean Other [facility] Other 12-18-2022 11:15-0400 Body weight 83.92 kg Jeannie Mclean Other [facility] Other 12-18-2022 11:15-0400 Diastolic blood pressure 75 mm[Hg] Jeannie Mclean Other [facility] Other 12-18-2022 11:15-0400 Respiratory rate 18 /min Jeannie Mclean Other [facility] Other 12-18-2022 11:15-0400 SaO2% (BldA) [Mass fraction] 96 % Jeannie Mclean Other [facility] Other 12-18-2022 11:15-0400 Systolic blood pressure 125 mm[Hg] Jeannie Mclean Other [facility] Other 11-29-2022 12:25-0400 Body temperature 97.7 [degF] [facility]ie [facility] 11-29-2022 12:25-0400 Diastolic blood pressure 89 mm[Hg] Chr[facility]ie [facility] 11-29-2022 12:25-0400 Heart rate 64 /min [facility] 11-29-2022 12:25-0400 Respiratory rate 18 /min [facility] 11-29-2022 12:25-0400 SaO2% (BldA) [Mass fraction] 97 % [facility] 11-29-2022 12:25-0400 Systolic blood pressure 139 mm[Hg] Chr[facility]ie [facility] 11-29-2022 11:25-0400 Blood Pressure Location [facility]ie [facility] 11-29-2022 11:25-0400 Body temperature 97.7 [degF] [facility] 11-29-2022 11:25-0400 Diastolic blood pressure 72 mm[Hg] [facility] 11-29-2022 11:25-0400 Heart rate 62 /min Chrissie SOTELO [facility] 11-29-2022 11:25-0400 Respiratory rate 18 /min Chrissie COOK [facility] 11-29-2022 11:25-0400 SaO2% (BldA) [Mass fraction] 97 % Chrissie COOK [facility] 11-29-2022 11:25-0400 Systolic blood pressure 135 mm[Hg] Chrissie SOTELO [facility] 11-29-2022 11:11-0400 Blood Pressure Location Chrissie SOTELO [facility] 11-29-2022 11:11-0400 Body temperature 96.8 [degF] Chrissie SOTELO [facility] 11-29-2022 11:11-0400 Diastolic blood pressure 68 mm[Hg] [facility] [facility] 11-29-2022 11:11-0400 Heart rate 61 /min Chrissie SOTELO [facility] 11-29-2022 11:11-0400 Respiratory rate 16 /min Chrissie SOTELO [facility] 11-29-2022 11:11-0400 SaO2% (BldA) [Mass fraction] 96 % Chrissie SOTELO [facility] 11-29-2022 11:11-0400 Systolic blood pressure 133 mm[Hg] Chrissie SOTELO [facility] 11-29-2022 11:01-0400 Blood Pressure Location Chrissie SOTELO [facility] 11-29-2022 10:40-0400 Respiratory rate 13 /min Chrissie COOK [facility] 11-29-2022 10:35-0400 Respiratory rate 12 /min Chrissie SOTELO [facility] 11-29-2022 10:30-0400 Respiratory rate 12 /min Chrissie SOTELO [facility] 11-29-2022 08:30-0400 Body temperature 97.7 [degF] Chrissie SOTELO [facility] 11-29-2022 08:30-0400 Heart rate 78 /min Chrissie SOTELO [facility] 11-21-2022 10:36-0400 Diastolic blood pressure 78 mm[Hg] Antoni Cody Work Phone: [facility] 250 DO Work Phone: 11-21-2022 10:36-0400 Systolic blood pressure 122 mm[Hg] Antoni Cody Work Phone: [facility] 250 DO Work Phone: 11-21-2022 10:34-0400 Body height 170.18 cm Antoni Cody Work Phone: [facility] 250 DO Work Phone: 11-21-2022 10:34-0400 Body mass index (BMI) [Ratio] 28.98 kg/m2 Antoni Cody Work Phone: [facility] 250 DO Work Phone: 11-21-2022 10:34-0400 Body surface area Derived from formula 1.96 m2 Antoni P House Work Phone: [facility] 250 DO Work Phone: 11-21-2022 10:34-0400 Body weight 83.92 kg Antoni P [employer] Work Phone: [facility] 250 DO Work Phone: 11-21-2022 10:34-0400 Diastolic blood pressure 76 mm[Hg] Antoni P House Work Phone: [facility] 250 DO Work Phone: 11-21-2022 10:34-0400 Heart rate 67 /min Antoni P House Work Phone: [facility] 250 DO Work Phone: 11-21-2022 10:34-0400 Systolic blood pressure 124 mm[Hg] Antoni P House Work Phone: [facility] 250 DO Work Phone: 11-16-2022 09:42-0500 Diastolic blood pressure 78 mm[Hg] Chrissie SOTELO [facility] 11-16-2022 09:42-0500 Heart rate 60 /min Chrissie SOTELO [facility] 11-16-2022 09:42-0500 Mean blood pressure 96 mm[Hg] Chrissie SOTELO [facility] 11-16-2022 09:42-0500 Systolic blood pressure 132 mm[Hg] Chrissie SOTELO [facility] 11-16-2022 09:42-0500 Heart rate 60 /min Chrissie SOTELO [facility] 11-16-2022 09:42-0500 SaO2% (BldA) [Mass fraction] 98 % Chrissie SOTELO [facility] 11-16-2022 09:42-0500 Body temperature 97.88 [degF] Chrissie SOTELO [facility] 11-16-2022 09:41-0500 Diastolic blood pressure 78 mm[Hg] Chrissie Are You a Human [facility] 11-16-2022 09:41-0500 Mean blood pressure 97 mm[Hg] Chrissie SOTELO [facility] 11-16-2022 09:41-0500 Systolic blood pressure 134 mm[Hg] Chrissie SOTELO [facility] 01-15-2022 13:36-0400 Blood Pressure Location Chino Flores Jr. [facility] 01-15-2022 13:36-0400 Diastolic blood pressure 55 mm[Hg] Chino Flores Jr. [facility] 01-15-2022 13:36-0400 Heart rate 73 /min Chino Flores Jr. [facility] 01-15-2022 13:36-0400 Systolic blood pressure 128 mm[Hg] Chino Flores Jr. [facility] Encounters Encounter Date Encounter Type Care Provider Facility Start: 03-09-2024 End: 03-09-2024 ambulatory Chrissie SOTELO Facility:[facility] Start: 03-09-2024 End: 03-09-2024 Patient encounter procedure Chrissie SOTELO [facility] Start: 01-29-2024 End: 01-29-2024 ambulatory SHAIKH LUIS ALBERTO Not Available Start: 12-12-2023 End: 12-12-2023 Office outpatient visit 15 minutes Taryn Real MD Work Phone: [facility] Comment on above: TIA (transient ische re attack) (Primary Dx); Mixed hyperlipidemia; BMI 26.0-26.9,adult; Former smoker Start: 11-28-2023 End: 11-29-2023 ambulatory [facility] Start: 11-28-2023 End: 11-28-2023 ambulatory [facility] Start: 10-29-2023 End: 10-29-2023 ambulatory COOL LUIS ALBERTO Not Available Start: 10-24-2023 Telephone encounter Olena pena CMA [facility] Comment on above: Follow up Start: 10-24-2023 End: 10-24-[address] [facility] Start: 10-24-2023 End: 10-24-2023 Office outpatient new 45 minutes Larissa Bach MD Work Phone: [facility] Comment on above: Cerebrovascular acci dent (CVA), unspecified mechanism (CMS- HCC) (Primary Dx); BRITTANY on CPAP; Chronic tension-type headache, not intractable; Cerebrovascular accident within last 3 months; Hyperglycemia; Palpitation; Cataract of right eye, unspecified cataract type Start: 10-13-2023 ambulatory [facility] Start: 10-09-2023 Telephone encounter [facility] Comment on above: STROKE REFERRAL Start: 10-01-2023 End: 10-01-2023 ambulatory SHAIKH ILYAD Not Available Start: 09-08-2023 End: 09-08-2023 ambulatory Jeannie Mclean Other [facility] Other Start: 09-08-2023 Office outpatient vi sit 25 minutes Jeannie Mclean [facility] Start: 08-28-2023 End: 08-28-2023 ambulatory SHAIKH MANNYWAD Not Available Start: 08-13-2023 End: 08-13-2023 ambulatory Jama King Other [facility] Other Start: 08-13-2023 Office outpatient vi sit 15 minutes Jama King [facility] Start: 07-09-2023 End: 07-09-2023 ambulatory Jama King Other [facility] Other Start: 07-09-2023 Office outpatient ne w 30 minutes Jama King [facility] Start: 03-04-2023 End: 03-04-2023 Patient encounter procedure Chrissie SOTELO [facility] Start: 12-21-2022 End: 12-21-2022 Patient encounter procedure Chrissie SOTELO [facility] Start: 12-18-2022 End: 12-18-2022 ambulatory Jeannie Mclean Other [facility] Other Start: 12-18-2022 Office outpatient vi sit 15 minutes Jeannie Mclean [facility] Start: 11-29-2022 End: 11-29-2022 Admission to same day surgery center Chrissie STOELO [facility] Start: 11-21-[address] Antoni Cho Facility: Start: 11-21-2022 Office consultation new/estab patient 60 min Antoni Cho Work Phone: [facility] 250 DO Work Phone: Start: 11-16-[address] Antoni Cho Facility: Start: 11-16-2022 End: 11-16-2022 Patient encounter procedure Chrissie SOTELO [facility] Start: 10-17-2022 End: 10-18-[address] CHRISSIE SOTELO Facility:[facility] Start: 10-09-2022 End: 10-09-2022 Patient encounter procedure Chrissie SOTELO [facility] Start: 01-15-2022 End: 01-15-2022 Patient encounter procedure Chino Flores Jr. [facility] Start: 12-01-2021 End: 12-02-[address] ANTONI CHO Facility:[facility] Start: 11-22-2021 End: 11-23-[address] ANTONI CHO Facility:[facility] Patient encounter status Antoni Cho Work Phone: [facility] DO Work Phone: Procedures Date Procedure Procedure Detail Performing Clinician Start: 10-24-2023 Adult depression scr eening assessment Olena Burkett CMA Start: 11-29-2022 Exploration of scrotum Chrissie SOTELO Start: 11-29-2022 Spermatic cord struc ture (body structure) Chrissie SOTELO Start: 01-15-2022 Cystoscopy Chino velazquez Jr. Start: 11-22-[address] LINDA SOTELO Comment on above: Performed By: #### P SAD #### [facility] [address] [place] [address] Dr. Ever Kenny Start: 01-27-2020 Colonoscopy Lauren Dawson ulices Start: 09-09-2019 Total colonoscopy Sarah Cho Work Phone: Cataract (disorder) Chrissie SOTELO Colonoscopy Chino Olivo Excision of lipoma Antoni Cho Work Phone: Tonsillectomy Chino rosa Tonsillectomy Antoni oswald Work Phone: Plan of Treatment Date Care Activity Detail Author Start: 01-26-2025 Screening for malign ant neoplasm of colon Colonoscopy [facility] Start: 10-24-2024 Adult BMI Screening Adult BMI Screen ing [facility] Start: 10-24-2024 Depression Screening Depression Scre ening [facility] Start: 10-24-2024 Tobacco Screening Tobacco Screening [facility] Start: 09-12-2024 DTaP/Tdap/Td Vaccine s (2 - Td or Tdap) DTaP/Tdap/Td Vaccines (2 - Td or Tdap) [facility] Start: 08-07-2024 Tobacco Screening Tobacco Screening [facility] Start: 08-06-2024 Adult BMI Screening Adult BMI Screen ing [facility] Start: 05-10-2024 Influenza vaccination Influenz a Vaccine (Season Ended) [facility] Start: 11-28-2023 End: 11-28-2023 Patient encounter procedure [facility] Start: 11-12-2023 FUV, Provider: Taryn Real, Status: Pen, Time: 10:50 AM FUV, Provider: Taryn Real, Status: Pen, Time: 10:50 AM [facility] 250 DO Work Phone: Start: 10-24-2023 End: 10-24-2024 CTA Carotid artery W contrast IV CT angiogram carotid Imaging Routine Cerebrovascular accident (CVA), unspecified mechanism (CMS-HCC) Expected: 10/24/2023, Expires: 10/24/2024 [facility] Comment on above: Expected: 10/24/2023 , Expires: 10/24/2024 Start: 10-24-2023 End: 10-24-2024 CTA Head Arteries W contrast IV CT angiogram head Imaging Routine Cerebrovascular accident (CVA), unspecified mechanism (CMS-HCC) Expected: 10/24/2023, Expires: 10/24/2024 [employer] Work Phone: Comment on above: Expected: 10/24/2023 , Expires: 10/24/2024 Start: 10-24-2023 End: 10-24-2024 Echo complete W/O contrast Echo complete W/O contrast Echocardiography Routine Cerebrovascular accident (CVA), unspecified mechanism (CMS-HCC) Cerebrovascular accident within last 3 months Expected: 10/24/2023, Expires: 10/24/2024 [facility] Comment on above: Expected: 10/24/2023 , Expires: 10/24/2024 Start: 10-24-2023 End: 10-24-2024 Event monitor Event monitor Cardiac Services Routine Cerebrovascular accident (CVA), unspecified mechanism ([facility]-H[facility]) Palpitation Expected: 10/24/2023, Expires: 10/24/2024 [facility] Comment on above: Expected: 10/24/2023 , Expires: 10/24/2024 Start: 10-24-2023 End: 10-24-2023 Patient encounter procedure 10/24/2023 10:00 AM EST Office Visit [facility] [address] [place] [id number] Larissa Bach MD [address] [place] [address], [address] [place] [address] [facility] Start: 05-10-2023 COVID-19 Vaccine ( season) COVID-19 Vaccine ( season) [facility] Start: 05-10-2023 Influenza vaccination Influenza Vacc ine [facility] Start: 2005 Fall Risk Screening Fall Risk Screen ing [facility] Start: 1990 Administration of varicella zoster vaccine Zoster (Shingles) Vaccine (1 of 2) [facility] Start: 1990 Zoster Vaccines (1 of 2) Zoster Vacc magdalene (1 of 2) [facility] Start: 12-06-1959 DTaP,Tdap and Td Vaccines (1 - Tdap) DTaP,Tdap and Td Vaccines (1 - Tdap) [facility] Start: 1958 Adult BMI Follow Up Plan Adult BMI F ollow Up Plan [facility] Start: 1958 Diabetes mellitus screening Diabetes Screening [facility] Start: 1952 Depression Screening Depression Scre ening [facility] Start: 1940 Lipid panel Lipid Panel [facility] Start: 1940 Medicare Annual Well ness Visit [facility] End: 10-24-2024 Creatinine includes GFR, serum Creatinine includes GFR, serum Lab Routine Cerebrovascular accident (CVA), unspecified mechanism ([facility]) 1 Occurrences starting 10/24/2023 until 10/24/2024 [facility] Comment on above: 1 Occurrences starti ng 10/24/2023 until 10/24/2024 End: 10-24-2024 Hemoglobin A1c/Hemoglobin.total in Blood Hemoglobin A1c Lab Routine Cerebrovascular accident (CVA), unspecified mechanism ([facility]) Hyperglycemia 1 Occurrences starting 10/24/2023 until 10/24/2024 [facility] Comment on above: 1 Occurrences starti ng 10/24/2023 until 10/24/2024 End: 10-24-2024 Lipid 1996 panel - Serum or Plasma Lipid profile Lab Routine Cerebrovascular accident (CVA), unspecified mechanism ([facility]) 1 Occurrences starting 10/24/2023 until 10/24/2024 [facility] Comment on above: 1 Occurrences starti ng 10/24/2023 until 10/24/2024 Immunizations Immunization Date Immunization Notes Care Provider Joselito palmer 07-10-2022 Pfizer COVID-19 Vac Bivalent 30 MCG/0.3ML Intramuscular Suspension [employer] Work Phone: [facility] 06-15-2022 Fluzone High-Dose Quadrivalent 0.7 ML Intramuscular Suspension Prefilled Syringe [employer] Work Phone: [facility] 250 DO Work Phone: 06-15-2022 influenza virus vaccine, unspecified formulation Chrissie SOTELO [facility] 08-10-2021 Pfizer-BioNTech COVID-19 Vacc 30 MCG/0.3ML Intramuscular Suspension [employer] Work Phone: [facility] 06-09-2021 SARS-CoV-2 (COVID-19 ) mRNA BNT-162b2 real Flores Jr. [facility] 12-08-2020 SARS-CoV-2 (COVID-19 ) mRNA BNT-162b2 real Flores Jr. [facility] 12-06-2020 Pfizer-BioNTech COVID-19 Vacc 30 MCG/0.3ML Intramuscular Suspension Antoni P [place] Work Phone: [facility] 11-14-2020 Pfizer-BioNTech COVID-19 Vacc 30 MCG/0.3ML Intramuscular Suspension Antoni P [place] Work Phone: [facility] 11-07-2020 SARS-CoV-2 (COVID-19 ) mRNA BNT-162b2 real Flores Jr. [facility] 09-03-2020 influenza virus vaccine, unspecified formulation [facility] 09-03-2020 influenza, high dose seasonal, preservative-free Antoni P [place] Work Phone: [facility] 250 DO Work Phone: 09-03-2020 pneumococcal conjuga te vaccine, 13 valent Antoni P [place] Work Phone: [facility] 06-27-2019 influenza virus vaccine, unspecified formulation [facility] 06-27-2019 influenza, injectabl e, quadrivalent, preservative free Antoni P [place] Work Phone: [facility] 250 DO Work Phone: 06-27-2019 pneumococcal polysaccharide vaccine, 23 valent Antoni P [place] Work Phone: [facility] 09-12-2014 tetanus toxoid, redu brenda diphtheria toxoid, and acellular pertussis vaccine, adsorbed Jeannie Z[employer] Other [employer] vascular [facility] Other Payers Date Payer Category Payer Medicare [id number] 2022 Private Health Insurance [id number] 2014 Private Health Insurance [id number] 2005 Medicare [id number] 1959 Medicare [id number] 1959 Private Health Insurance [id number] 1940 Unknown [id number] 2.16.84 [id number] 1940 Unknown [id number] 2.16.84 [id number] 1940 Unknown [id number] 2.16.84 [id number] 1940 Unknown [id number] 2.16. [id number] 1940 Unknown [id number] 2.16. [id number] 1940 Unknown [id number] 2.16.8 [id number] 1940 Unknown [id number] 2.16.8 [id number] 1940 Unknown [id number] 2.16.8 [id number] 1940 Unknown [id number] 2.16.8 [id number] 1940 Unknown [id number] 2.16.84 [id number] 1940 Unknown [id number] 2.16.84 [id number] 1940 Unknown [id number] 2.16.84 [id number] 1940 Unknown [id number] 2.16.840 [id number] 1940 Unknown [id number] 2.16.8 [id number] Unknown Social History Date Type Detail Facility Start: 01-15-2022 End: 03-09-2024 Tobacco smoking status Ex-smoker (finding) [facility] Start: 08-07-2023 End: 12-12-2023 Sex Assigned At Male [facility] Start: 06-11-2023 End: 12-12-2023 Social alcohol use Social alcohol use [place] [address] DO Work Phone: Comment on above: quit 1978; End: 09-09-1978 History of tobacco use Current smoker [facility] End: 09-09-1978 History of tobacco use Cigarette Smoker [facility] Start: 06-11-2023 Tobacco use and exposure Smokeless tobacco non-user [facility] Start: 08-07-2023 End: 12-12-2023 Alcohol intake Current drinker of alcohol (finding) [facility] Childcare Unknown [facility] Start: 06-16-2021 Alcohol Comment 2-4 BEERS A DAY [facility] Start: 1940 Sex Assigned At Not on file P [facility] Start: 10-01-2023 Alcohol Comment socially [facility] Work Phone: Start: 12-02-2023 End: 12-12-2023 Exposure to SARS-CoV-2 (event) Not sure [facility] Medical Equipment Procedure Code Equipment Code Equipment Origin al Text Equipment Identifier Dates Rosemarie Uv Iol [id number] Start: 07-02-2023 Rosemarie Pond Iol [id number] Start: 08-06-2023 Functional Status Date Assessment Result Facility 03-09-2024 Functional Status N/A [facility] 03-04-2023 Functional Status N/A [facility] 12-21-2022 Functional Status N/A [facility] 11-16-2022 Functional Status No [facility] 10-09-2022 Functional Status N/A [facility] Clinical Notes 11-22-2021 to 03-09-2024 Taryn Real MD - 12/12/2023 10:50 AM EDTPatient InstructionsTelephone Encounter - Olena Burkett CMA - 10/24/2023 11:37 AM ESTTelephone Encounter - Alvina Gaitan - 10/24/2023 11:37 AM EST Note Date & Type Note Facility 03-09-2024 Hospital Discharge instructions Patient Education 03/09/2024 08:12:15 Benign Prostatic Hyperplasia Benign Prostatic Hyperplasia Benign prostatic hyperplasia (BPH) is an enlarged prostate gland that is caused by the normal aging process. The prostate may get bigger as a man gets older. The condition is not caused by cancer. The prostate is a walnut-sized gland that is involved in the production of semen. It is located in front of the rectum and below the bladder. The bladder stores urine. The urethra carries stored urine out of the body. An enlarged prostate can press on the urethra. This can make it harder to pass urine. The buildup of urine in the bladder can cause infection. Back pressure and infection may progress to bladder damage and kidney (renal) failure. What are the causes? This condition is part of the normal aging process. However, not all men develop problems from this condition. If the prostate enlarges away from the urethra, urine flow will not be blocked. If it enlarges toward the urethra and compresses it, there will be problems passing urine. What increases the risk? This condition is more likely to develop in men older than 50 years. What are the signs or [...] urethra. Follow these instructions at home: Take nain-vac-mvshvmu and prescription medicines only as told by your health care provider. Monitor your symptoms for any changes. Contact your health care provider with any changes. Avoid drinking large amounts of liquid before going to bed or out in public. Avoid or reduce how much caffeine or alcohol you drink. Give yourself time when you urinate. Keep all follow-up visits. This is important. Contact a health care provider if: You have unexplained back pain. Your symptoms do not get better with treatment. You develop side effects from the medicine you are taking. Your urine becomes very dark or has a bad smell. Your lower abdomen becomes distended and you have trouble passing urine. Get help right away if: You have a fever or chills. You suddenly cannot urinate. You feel light-headed or very dizzy, or you faint. There are large amounts of blood or clots in your urine. Your urinary problems become hard to manage. You develop moderate to severe low back or flank pain. The flank is the side of your body between the ribs and the hip. These symptoms may be an emergency. Get help right away. Call 911. Do not wait to see if the symptoms will go away. Do not drive yourself to the hospital. Summary Benign prostatic hyperplasia (BPH) is an enlarged prostate that is caused by the normal aging process. It is not caused by cancer. An enlarged prostate can press on the urethra. This can make it hard to pass urine. This condition is more likely to develop in men older than 50 years. Get help right away if you suddenly cannot urinate. This information is not intended to replace advice given to you by your health care provider. Make sure you discuss any questions you have with your health care provider. Document Revised: 03/14/2022 Document Reviewed: 03/14/2022 [employer] Patient Education 2022 [email or web address]. Follow Up Care 03/04/2023 09:33:42 With:ASHLEIGH POTTS, Chrissie Bradley, LEMUELL Address: [address] [place], [place] [address]- When: Unknown [facility] 03-09-2024 Note Patient Education Urology Benign Prostatic Hyperplasia Benign prostatic hyperplasia (BPH) is an enlarged prostate gland that is caused by the normal aging process. The prostate may get bigger as a man gets older. The condition is not caused by cancer. The prostate is a walnut-sized gland that is involved in the production of semen. It is located in front of the rectum and below the bladder. The bladder stores urine. The urethra carries stored urine out of the body. An enlarged prostate can press on the urethra. This can make it harder to pass urine. The buildup of urine in the bladder can cause infection. Back pressure and infection may progress to bladder damage and kidney (renal) failure. What are the causes? This condition is part of the normal aging process. However, not all men develop problems from this condition. If the prostate enlarges away from the urethra, urine flow will not be blocked. If it enlarges toward the urethra and compresses it, there will be problems passing urine. What increases the risk? This condition is more likely to develop in men older than 50 years. What are the signs or [...] Follow these instructions at home: ? Take cqha-chi-ysdegml and prescription medicines only as told by your health care provider. ? Monitor your symptoms for any changes. Contact your health care provider with any changes. ? Avoid drinking large amounts of liquid before going to bed or out in public. ? Avoid or reduce how much caffeine or alcohol you drink. ? Give yourself time when you urinate. ? Keep all follow-up visits. This is important. Contact a health care provider if: ? You have unexplained back pain. ? Your symptoms do not get better with treatment. ? You develop side effec (more content not included)... [facility] 12-12-2023 History of Present illness Narrative Subjective Steve De Leon is a 83 y.o. male Chief Complaint Annual Exam HPI Patient is in the office in follow-up for having 30-day event monitor ordered by neurology to assess possible cause of TIA. His event monitor was completely normal and this was shared with the patient. He has had no recurrent events and previous assessment by myself indicated no indication for organic heart disease. Therefore the patient was advised to follow-up with me in as needed I discussed briefly with the patient the possibility of a loop recorder if he has recurrent neurological events that are not explainable. We are not going to go in that route at this point in time. His physical examination was unremarkable as noted. No further cardiac testing and no further follow-up at this time Review of Systems All other systems reviewed and are negative. Vitals: 12/12/23 1123 BP: 128/70 BP Location: Left arm Patient Position: Sitting Pulse: 62 Weight: 77.1 kg (170 lb) Height: 1.702 m (5' 7 ) Objective Physical Exam Constitutional: Appearance: Normal appearance. HENT: Nose: Nose normal. Neck: Vascular: No carotid bruit. Cardiovascular: Rate and Rhythm: Normal rate. Pulses: Normal pulses. Heart sounds: Normal heart sounds. Pulmonary: Effort: Pulmonary effort is normal. Abdominal: General: Bowel sounds are normal. Palpations: Abdomen is soft. Musculoskeletal: General: Normal range of motion. Cervical back: Normal range of motion. Right lower leg: No edema. Left lower leg: No edema. Skin: General: Skin is warm and dry. Neurological: General: No focal deficit present. Mental Status: He is alert. Psychiatric: Mood and Affect: Mood normal. Behavior: Behavior normal. Thought Content: Thought content normal. Judgment: Judgment normal. Allergies Patient has no known allergies. Current Medications Current Outpatient Medications: aspirin 81 mg EC tablet, Take 1 tablet (81 mg) by mouth once daily., Disp: , Rfl: atorvastatin (Lipitor) 20 mg tablet, Take 1 tablet (20 mg) by mouth once daily., Disp: , Rfl: multivitamin tablet, Take 1 tablet by mouth once daily., Disp: , Rfl: naproxen (Naprosyn) 250 mg tablet, Take 1 tablet (250 mg) by mouth 2 times a day as needed for mild pain (1 - 3)., Disp: , Rfl: omeprazole (PriLOSEC) [address] capsule, Take 1 capsule (20 mg) by mouth every other day., Disp: , Rfl: topiramate (Topamax) 50 mg tablet, Take 1 tablet (50 mg) by mouth 2 times a day as needed., Disp: , Rfl: Assessment/Plan 1. Mixed hyperlipidemia 2. BMI 26.0-26.9,adult 3. Former smoker Scribe Attestation By signing my name below, I, Aidee Suggs LPN attest that this documentation has been prepared under the direction and in the presence of Taryn Real MD. Provider Attestation - Scribe documentation All medical record entries made by the Scribe were at my direction and personally dictated by me. I have reviewed the chart and agree that the record accurately reflects my personal performance of the history, physical exam, discussion and plan. documented in this encounter [facility] Work Phone: 12-12-2023 Instructions Aminata Dickerson LPN - 12/12/2023 10:50 AM EDT Please bring all medicines, vitamins, and herbal supplements with you when you come to the office. Prescriptions will not be filled unless you are compliant with your follow up appointments or have a follow up appointment scheduled as per instruction of your physician. Refills should be requested at the time of your visit. BMI was above normal measurement. Current weight: 77.1 kg (170 lb) Weight change since last visit (-) denotes wt loss -15 lbs Weight loss needed to achieve BMI 25: 10.7 Lbs Weight loss needed to achieve BMI 30: -21.1 Lbs Provided instructions on dietary changes Provided instructions on exercise. Follow up ordered as needed only documented in this encounter [facility] Work Phone: 10-24-2023 Miscellaneous Notes would like to follow up 2 months in [place]. Please schedule 1st attempt: [employer] contacted patient and informed them that we have received a request to be seen in our clinic for a follow up appointment. Patient stated that they will contact our clinic later to schedule documented in this encounter [facility] 10-24-2023 Telephone encounter Note would like to follow up 2 months in [place]. Please schedule [place] 10-24-2023 Telephone encounter Note 1st attempt: [employer] contacted patient and informed them that we have received a request to be seen in our clinic for a follow up appointment. Patient stated that they will contact our clinic later to schedule [facility] History of Present illness Narrative Reason for visit: Abnormal MRI [...] TBI, seizures, learning disability. He has tried tjzv-fft-vznatjy Tylenol, which she is currently taking on [...] 08/06/2023 Performed by Sherice Flores MD at [facility] EXTRACTION CATARACT INTRAOCULAR LENS Right 07/02/2023 Performed by Sherice Flores MD at [facility] LIPOMA RESECTION 1954 LIPOMA RESECTION 11/2022 scrotum [...] Known Allergies Last Neuro Imaging: Refer to HPI Objective: BP 126/70 (BP Site: Left Arm, [...] Active Problem List Diagnosis Cerebrovascular accident (CVA) ([facility]) BRITTANY on CPAP Chronic tension-type headache, not intractable Cataract of right eye Status post, left superior frontal ischemic infarction, 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 Appears to be a coincidental finding, asymptomatic. Patient seems to have had a right-sided cataract surgery about 3-4 months ago, the afterwards he has been having tajz-cm-qfkqmgfr severity tension-type headaches around the right temporal/frontal [...] Supportive care. Regular follow-up with PCP and medication aide Call 911 if symptoms of TIA/Stroke occur. Follow up with me in 3 months. Larissa Bach MD Vascular Neurologist [facility] Neurology ([facility]) I have personally participated in the care of this patient. I have reviewed all pertinent clinical information, including history, physical exam, investigation results and plan. 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 Important Notice: This note was created with the assistance of a speech recognition program. While intending to generate a timely document that accurately reflects the content of the encounter, no guarantee can be provided that every grammatical or spelling mistake has been or will be identified or corrected. Thank you for your understanding. documented in this encounter [facility] 10-09-2023 Miscellaneous Notes Recieved a referral for our Stroke Clinic Referral is uploaded into the Media folder in the patients chart. Dx: ISCHEMIC STROKE OF FRONTAL LOBE Referred by: SHAIKH LUIS ALBERTO MD Images from the original note were not included. Patient had MRI brain at [facility] that showed CVA. Headache x 3-4mos. Schedule new patient with Dr. Bach. Patient referred to [facility] however extended wait time. Will have him be seen in boss/tele initially and if follow up needed, can have patient seen in [place] then. Alayna, can you have imaging sent over from [place] please Faxed a request to push over both images and reports. Currently waiting for response. Spoke with patient and made the appt documented in this encounter [facility] 10-09-2023 Telephone encounter Note Recieved a referral for our Stroke Clinic Referral is uploaded into the Media folder in the patients chart. Dx: ISCHEMIC STROKE OF FRONTAL LOBE Referred by: SHAIKH LUIS ALBERTO MD [facility] 10-09-2023 Telephone encounter Note Images from the original note were not included. Patient had MRI brain at [facility] that showed CVA. Headache x 3-4mos. Schedule new patient with Dr. Bach. Patient referred to [place] location however extended wait time. Will have him be seen in boss/tele initially and if follow up needed, can have patient seen in [place] then. Alayna, can you have imaging sent over from [place] please [facility] 10-09-2023 Telephone encounter Note Faxed a request to push over both images and reports. Currently waiting for response. [facility] 10-09-2023 Telephone encounter Note Spoke with patient and made the appt [facility]23 Evaluation note Encounter Date Diagnosis Assessment [...] treatment plan. Patient left in stable condition [facility] Other 2023 Evaluation note* Encounter Date Diagnosis Assessment Notes Treatment Notes Treatment Clinical Notes Aug, Diarrhea (ICD-10 - R19.7) Patient reports that he has had some improvement and will continue Levsin as directed, fiber, and probiotic without change RTO 3 months [facility] Other 10-31-2023 Evaluation note* Encounter Date Diagnosis Assessment Notes Treatment Notes Treatment Clinical Notes Jun, Diarrhea (ICD-10 - R19.7) This patient states his diarrhea started about 4 months ago. At it's worst, he was only going once, but he had urgency & was a large amount. The frequency & severity have improved somewhat. He reported to [facility] ER last month. Lab & stool [...] colonoscopy. Return visit here in one month [facility] Other 10-01-2023 History general Narrative - Reported* Type Description Date Medical History Hypercholesteremia Surgical History tonsillectomy and adenoidectomy Surgical History lipoma Surgical History colonoscopy Surgical History cataract removal 06/2023 Hospitalization History see above Hospitalization History [place] ER for diarrhea 05/2023 [facility] Other 10-01-2023 History general Narrative - Reported* Type Description Date Medical History Hypercholesteremia Medical History diarrhea Surgical History tonsillectomy and adenoidectomy Surgical History lipoma Surgical History colonoscopy Surgical History cataract removal 06/2023 Hospitalization History see above Hospitalization History [place] [facility] for diarrhea 05/2023 [facility] Other 06-26-2023 Hospital Discharge instructions Patient Education [...] Follow these instructions at home: Medicines Take rirh-lpp-iramjvv and prescription medicines only as told by [...] or the blood stops without treatment. Take zbpr-eba-gvkxtpp and prescription medicines only as told by your health care provider. Drink enough fluid to keep your urine pale yellow. This information is not intended to replace advice given to you by your health care provider. Make sure you discuss any questions you have with your health care provider. Document Revised: 04/26/2021 Document Reviewed: 04/26/2021 [employer] Patient Education 2022 veriCAR. Follow Up Care 12/21/2022 09:24:19 With:ASHLEIGH POTTS, Chrissie Bradley, URL Address: [address] [place] [id number]- When:Within 1 Year(s) [facility] 04-14-2023 Hospital Discharge instructions Patient Education 12/21/2022 09:11:46 [...] Follow these instructions at home: Medicines Take rbeu-nzo-vrwmuhq and prescription medicines only as told by [...] or the blood stops without treatment. Take vors-qzr-dpilyio and prescription medicines only as told by your health care provider. Drink enough fluid to keep your urine clear or pale yellow. This information is not intended to replace advice given to you by your health care provider. Make sure you discuss any questions you have with your health care provider. Document Released: 08/26/2006 Document Revised: 01/20/2020 Document Reviewed: 09/28/2017 [employer] Patient Education 2020 veriCAR. Follow Up Care 11/29/2022 14:24:46 With:ASHLEIGH POTTS, Chrissie Bradley, URL Address: [facility] [address] [place] [address]- When:02/20/2023 [facility] 04-11-2023 Evaluation note* Encounter Date Diagnosis Assessment [...] understanding and is agreeable with treatment plan. [facility] Other 03-23-2023 Evaluation + Plan noteExtracted from: Title:CSB post op Author:Lauryn POTTS, Meek López Date:11/29/22 Plan Transfer/Discharge: Transfer/Discharge Discharge when meets criteria ( From PACU to Ambulatory Surgery Unit, and To home ). Extracted from: Title:CSB [place] Author:Meek Combs MD Date:11/29/22 Plan [place] [employer] Anesthesiologists (ASA) physical status classification: Class II. Anesthetic Preoperative Plan: Anesthesia General. Future Appointments Appointment Date:12/21/2022 09:00:00 AM Scheduled Provider:Chrissie SOTELO MD Location:[facility] Appointment Type:URO Office Visit [facility]03[facility]23 Hospital Discharge instructions Patient Education 11/29/2022 10:49:22 Post Op Patient Instructions - FT (Custom) (Custom) Follow Up Care 10/30/2022 08:14:31 With:CHACHA MULLINS Address: [address] [place] [address] [place] [address] [facility] (1) When: Unknown Comments:Call for followup appointment with Mindi Mullins PA-C or me within the next 2-3 weeks. Should you haveproblems prior to that visit, please let us know.No shower for two days. Keep scrotal support and ice intermittently for discomfort.Have a great day! [facility]01-31-2023 Hospital Discharge instructions Patient Education 10/09/2022 16:09:17 [...] urethra. Follow these instructions at home: Take pzhr-wkx-amhmszu and prescription medicines only as told by [...] 08/26/2006 Document Revised: 07/21/2019 Document Reviewed: 09/30/2017 [employer] Patient Education 2019 veriCAR. Follow Up Care 10/05/2022 09:45:41 With:ASHLEIGH POTTS, Chrissie Bradley, URL Address: [address] [place] [address]- When: Unknown [facility] [place] [id number] Hospital Discharge instructions Patient Education 01/15/2022 14:02:51 [...] Follow these instructions at home: Medicines Take vgqb-mxz-bjmztjl and prescription medicines only as told by [...] or the blood stops without treatment. Take cdgx-zvc-rdewmmn and prescription medicines only as told by your health care provider. Drink enough fluid to keep your urine clear or pale yellow. This information is not intended to replace advice given to you by your health care provider. Make sure you discuss any questions you have with your health care provider. Document Released: 08/26/2006 Document Revised: 01/20/2020 Document Reviewed: 09/28/2017 [employer] Patient Education 2020 veriCAR. Follow Up Care 01/03/2022 11:13:58 With:Mark Torres MD, Chino Leggett, URO Address: [facility] [address], [place] [address]- When:01/15/2023 [facility] [place] [id number] NotePROCEDURE: XR SHOULDER LT 2V or > COMPARISON: None. HISTORY: Pain of left shoulder joint FINDINGS: BONES:No acute fracture or dislocation. Moderate acromioclavicular and glenohumeral joint osteoarthropathy with joint space narrowing marginal osteophyte formation. Subchondral cystic change of the glenoid. SOFT TISSUES:Negative. No visible soft tissue swelling. EFFUSION:None visible. OTHER: Negative. IMPRESSION: Moderate osteoarthritis Electronically authenticated by: AQUILES SPAIN Date: 2021-11-22 11:29[facility] Future Appointments Appointment Date:01/21/2023 10:30:00 AM Scheduled Provider:Chino Flores Jr., MD Location:[facility] Appointment Type:URO Office Visit Diagnostic Tests Pending * Urine Cytology ([facility]) 01/15/22 [facility] [place] Evaluation + Plan note Future Appointments Appointment Date:01/21/2023 10:30:00 AM Scheduled Provider:Chino Flores Jr., MD Location:[facility] Appointment Type:URO Office Visit [facility] [place] Evaluation + Plan note Future Appointments Appointment Date:11/29/2022 10:00:00 AM Scheduled Provider: Location:[facility] Appointment Type:Surgery FT Appointment Date:01/21/2023 10:30:00 AM Scheduled Provider:Chino Flores Jr., MD Location:[facility] Appointment Type:URO [facility] Future Appointments Appointment Date:03/04/2023 08:30:00 AM Scheduled Provider:Chrissie SOTELO MD Location:[facility] Appointment Type:URO Office Visit [facility] [place] Evaluation + Plan note Future Appointments Appointment Date:03/09/2024 08:00:00 AM Scheduled Provider:Chrissie SOTELO MD Location:[facility] Appointment Type:URO Office Visit [facility] Evaluation note* Diagnosis Cerebrovascular accident (CVA), unspecified mechanism (CMS-HCC)- Primary BRITTANY on CPAP Chronic tension-type headache, not intractable Chronic tension type headache Cerebrovascular accident within last 3 months Hyperglycemia Other abnormal glucose Palpitation Palpitations Cataract of right eye, unspecified cataract type [facility] Diagnosis TIA (transient ischemic attack)- Primary Unspecified transient cerebral ischemia Mixed hyperlipidemia BMI 26.0-26.9,adult Former smoker Personal history of tobacco use, presenting hazards to health documented in this encounter [facility] Work Phone: History general Narrative - Reported* Type Description Date Medical History Hypercholesteremia Surgical History tonsillectomy and adenoidectomy Surgical History lipoma Surgical History colonoscopy Hospitalization History see above [facility] Other Hospital course Narrative No data available for this section [facility] Hospital Discharge instructions No data available for this section [facility] on filedocumented in this encounter [facility] filedocumented in this encounter [facility] on filedocumented in this encounter [facility] No data available for this section [facility] Summary Purpose Family History No Family History [...] years the last of which was in [place] 2 and half years ago which was [...] I will retrieve the stress test from [place]. Patient is considered low risk for the [...] Referral Specialty Diagnoses / Procedures Referred By Contac t Referred To Contact Diagnoses Cerebrovascular accident (CVA), unspecified mechanism ([facility]) Cerebrovascular accident within last 3 months Procedures Echo complete W/O contrast Larissa Bach MD [address] [place] [address] [facility] [address] [place] [address] Phone: [phone] Referral ID Status Reason Start Date Expiration Date V isits Requested Visits Authorized [id number] Pending Review 10/24/2023 10/23/2024 1 1 Specialty Diagnoses / Procedures Referred By Contac t Referred To Contact Radiology Diagnoses Cerebrovascular accident (CVA), unspecified mechanism ([facility]) Procedures CT angiogram carotid Larissa Bach MD [address] [place] [address], [address] [place] [id number] [place] [address] [place] [address] Phone: [phone] Referral ID Status Reason Start Date Expiration Date V isits Requested Visits Authorized [id number] Pending Review 10/24/2023 10/23/2024 1 1 Specialty Diagnoses / Procedures Referred By Contac t Referred To Contact Radiology Diagnoses Cerebrovascular accident (CVA), unspecified mechanism ([facility]) Procedures CT angiogram head Larissa Bach MD [address] [place] [address], [address] [place] [address] [place] [address] [place] [address] Phone: [phone] Referral ID Status Reason Start Date Expiration Date V isits Requested Visits Authorized [id number] Pending Review 10/24/2023 10/23/2024 1 1 Additional Source Comments Patient Care team informatio n (unrecognized section and content) Dental Professional Relationship Specialty Start Date End Date Shaikh Poole MD [address] [place] [address] PCP - General Internal Medicine 07/02/23 Dental Professional Relationship Specialty Start Date End Date Shaikh Poole MD [address] [place] [address] PCP - General Internal Medicine 07/02/23 Dental Professional Relationship Specialty Start Date End Date Shaikh Poole MD [address] [place] [address] PCP - General Internal Medicine 07/02/23 Dental Professional Relationship Specialty Start Date End Date Shaikh Poole MD [address] [place] [place] [address] PCP - General Internal Medicine 11/05/23 (unrecognized sect ion and content) No Status Records FoundNo Status Records FoundNo Status Records FoundNo Status Records FoundNo Status Records FoundNo Status Records FoundNo Status Records Found INFORMATION SOURCE (unrecogn ized section and content) DATE CREATED AUTHOR 10/18/2022 [facility] DATE CREATED AUTHOR AUTHOR'S ORGANIZ ATION 11/22/2022 [employer] DATE CREATED AUTHOR AUTHOR'S ORGANIZ ATION 12/16/2022 [facility] DATE CREATED AUTHOR AUTHOR'S ORGANIZ ATION 10/26/2023 [facility] DATE CREATED AUTHOR AUTHOR'S ORGANIZ ATION 11/29/2023 [facility] DATE CREATED AUTHOR AUTHOR'S ORGANIZ ATION 01/31/2024 [facility] EPIC DATE CREATED AUTHOR AUTHOR'S ORGANIZ ATION 03/11/2024 [facility] REASON FOR VISIT (unrecogniz ed section and content) Reason Onset Date Comments STROKE REFERRAL 10/09/2023 Reason Onset Date Comments Follow up 10/24/2023 Reason Comments Annual Exam ANDREY results FOR RECORDS PERTAINING TO PATIENTS WHO ARE [...] BE BASED ON THE PRIMARY CLINICAL RECORDS. [employer] [facility]. provides no warranty or guarantee of the accuracy or completeness of information in this document.
== END 2024-06-18 09:08 | disposition home or self-care (01) ==
LOC: RAD 09:10
DX: M54.50 Low back pain, unspecified (principal); M51.369 Other intervertebral disc degeneration, lumbar region without mention of lumbar back pain or lower extremity pain
CPT/HCPCS: 72114

== ENCOUNTER 2024-07-13 13:41 | Outpatient (OUT) | payer MEDICARE, OTHER, SELFPAY ==
--- NOTE | 2024-07-13 14:55 | P.CN_ITS ---
Consult Note: HPI Data of Consult Patient: new to practice Consult date: 07/13/24 Requesting Physician: James Vyas MD Primary Care Provider: STACEY STERN Consult Narrative Reason for consult: low back, right leg pain Narrative: 83yom who presents for evaluation. longstanding low back history, pain recently getting worse into right leg. lumbar imaging consistent with multilevel severe spondylosis and stenosis. has engaged in a series of provider directed home exercises >6 weeks, without lasting benefit. uses otc pain meds as needed. denies adverse med side effects. cc:: CC: James Vyas MD Review of Systems ROS Status of ROS 10 or more systems reviewed and unremark able except as noted in history and below PFSH PFSH Social History Smoking status: Never smoker Meds Home Medications and Allergies Home Medications ?Medication ?Instructions ?Recorded ?Confirmed ?Type dicyclomine 20 mg tablet 20 mg PO QID PRN abdominal pain 05/20/23 05/20/23 History dicyclomine 20 mg tablet 20 mg PO TID PRN abdominal pain #7 05/20/23 Rx tabs ondansetron 4 mg disintegrating 4 mg PO Q8H 3 days #9 tabs 05/20/23 Rx tablet Allergies Allergy/AdvReac Type Severity Reaction Status Date / Time No Known Drug Allergies Allergy Verified 05/20/23 08:09 Exam Narrative Exam Narrative: Psych-alert and oriented x 3. Attentive and appropriate, constitutionally normal, displays normal mood and affect per situation. There are no obvious deficits in memory, reasoning, or intellect.? Skin-no obvious rashes, bruising, erythema noted to the patient's area of pain.? Extremities- extremities are warm with minimal edema and palpable pulses. Lumbar-tenderness to palpation noted in the lumbar spine and paraspinal musculature. Pain is elicited with flexion, extension, and lateral rotation of the lumbar spine. Range of motion is diminished with these motions. Facet loading maneuvers are positive.? Strength-noted to be unremarkable with the exception of decreased strength rated at 4 out of 5 in right quadriceps femoris, anterior tibialis. Sensory-no notable sensory deficits in the bilateral lower extremities to touch or pinprick in all dermatomal distributions with the exception to decreased sensation to the right L3, 4 dermatomal distribution Coordination remains intact.? Gait remains non-antalgic. Assessment and Plan Assessment and Plan (1) Lumbar stenosis with neurogenic claudication: (2) Lumbar spondylosis: Plan 83yom who presents for evaluation. failed conservative measures, as noted. imaging reviewed, as noted. given symptoms and imaging, prudent to attempt right l3-4, l4-5 tfesi under fluoroscopic guidance. he is in agreement. meds reviewed, no changes. follow up after procedure.
== END 2024-07-13 13:42 | disposition home or self-care (01) ==
LOC: PM 13:41
PROVIDERS: Visit Provider Anesthesiology
DX: M48.062 Spinal stenosis, lumbar region with neurogenic claudication (principal); M47.816 Spondylosis without myelopathy or radiculopathy, lumbar region
CPT/HCPCS: G0463

== ENCOUNTER 2024-07-14 08:28 | Outpatient (OUT) | payer MEDICARE, OTHER, SELFPAY ==
--- OUTSIDE RECORDS SUMMARY | 2024-07-14 08:32 | XMS_ITS | CCD ---
Author Organization [facility] Care Team Providers Care Land Appraiser Name Role Phone Antoni Cho Primary Care Physician [phone] DR CHRISSIE SOTELO Admitting Unavailable ASHLEIGH, DR CHRISSIE Bradley Attending Unavailable [place], DR ACRRILLO Primary Care Unavailable CRESCENT, DR CHRISSIE Bradley Consulting Unavailable NEF, JERMAIN Consulting Unavailable [place], DR CARRILLO Admitting Unavailable [place], DR CARRILLO Attending Unavailable [place], DR CARRILLO Primary Care Unavailable PURVIS, DR AQUILES Lee Consulting Unavailable [place], DR CARRILLO Consulting Unavailable [place], DR CARRILLO Admitting Unavailable [place], DR CARRILLO Attending Unavailable [place], DR CARRILLO Primary Care Unavailable [place], DR CARRILLO Consulting Unavailable NARDINIKINA Consulting Unavailable Antoni Cho Unavailable Unavailable Unavailable Deejay, Dr. Antoni Howell Primary Care Unava ilable Deejay, Dr. Antoni Howell Primary Care Unava ilable Taryn Real Referring Unavailable Taryn Real Attending Unavailable Jeannie Mclean Unavailable Jama King Unavailable Shaikh Poole MD Primary Care Provider [phone] SHAIKH POOLE Referring Unavailable SHAIKH POOLE Primary Care Unavailable TJ, EHAD Attending Unavailable SHAIKH POOLE Referring Unavailable SHAIKH POOLE Primary Care Unavailable TJ, EHAD Attending Unavailable TJ, EHAD Referring Unavailable SHAIKH POOLE Primary Care Unavailable TJ, EHAD Attending Unavailable TJ, EHAD Referring Unavailable SHAIKH POOLE Primary Care Unavailable Shaikh Poole MD Primary Care Provider ANTONI CHO Primary Care Physician Chrissie SOTELO Attending Unavailable Stevenson Eckert MD Primary Care Provider Stacey Vaughn NP Unavailable SHAIKH POOLE Attending Unavailable SHAIKH POOLE Attending Unavailable SHAIKH POOLE Attending Unavailable LUIS ALBERTO, Attending Unavailable STACEY VAUGHN Attending Unavailabl e STACEY VAUGHN Attending Unavailabl e Allergies Allergy Classification Reported Allergen(s) Allergy Type Date of Onset Reaction(s) Facility (1 source) No Known Medication Allergies; Translations: [No Known Medication Allergies] Propensity to adverse reactions (disorder) [facility] Repository Medications Current Medications Medication Drug Class(es) Dates Sig (Normalized) Sig (Original) acetaminophen 325 mg / HYDROcodone bitartrate 5 mg oral tablet (1 source) Opioid Agonist Start: 11-29-2022 End: 12-01-2022 acetaminophen-hyd rocodone 325 mg-5 mg oral tablet 1 tab(s), Oral, q4hr Pain for 2 day(s), 7 tab(s), Refill(s) 0, [id number], 170, cm, 11/16/22 11:51:00 EST, Height/Length Dosing, 85, kg, 11/16/22 11:51:00 EST, Weight Dosing Start Date: 11/29/22 Stop Date: 12/01/22 Status: Ordered [id number] 200 actuat albuterol 0.09 mg/actuat metered dose [...] 4-6 hours for 14 days Aug, Active amoxicillin 875 mg / clavulanate 125 mg oral tablet (2 sources) Penicillin-class Antibacterial Start: 06-17-2024 End: 06-27-2024 take 1 tablet by mouth in the morning amoxicillin-clavulanate (Augmentin) 875-125 MG tablet Indications: Sensation of lump in throat , Throat irritation Take 1 tablet (875 mg) by mouth in the morning and 1 tablet (875 mg) before bedtime. Do all this for 10 days. 20 tablet 06/17/2024 06/27/2024 Active aspirin 81 mg delayed release oral [...] 0 Active atorvastatin 20 mg oral tablet (10 sources) HMG-CoA Reductase Inhibitor Start: 01-29-2024 End: 07-27-2024 take 1 tablet by mouth once daily atorvastatin (Lipitor) 20 MG tablet Indications: Ischemic stroke of frontal lobe (CMS/HCC) Take 1 tablet (20 mg) by mouth Daily 90 tablet 1 01/29/2024 07/27/2024 Active Start: 10-08-2023 End: 01-06-2024 take 1 tablet [...] day(s), # 10 cap(s), Refills(s) 0, Pharmacy: [facility] #[id number], 170, cm, 11/16/22 11:51:00 EST, Height/Length Dosing, 85, kg, 11/16/22 11:51:00 EST, Weight Dosing Start Date: 11/29/22 Stop Date: 12/04/22 Status: Ordered hyoscyamine sulfate 0.125 mg oral tablet (9 sources) Start: 07-09-2023 End: 06-17-2024 take 1 tablet by mouth every eight hours Levsin 0.125 MG 1 tablet Orally three times a day for 30 days Jun, Active methylPREDNISolone (3 sources) Corticosteroid Start: 06-17-2024 End: 06-24-2024 methylPREDNISolone (Medrol Dospak) 4 MG tablets Indications: Sensation of lump in throat Follow schedule on package instructions 21 tablet 06/17/2024 06/24/2024 Active Start: 09-08-2023 methylPREDNISo lone 4 MG as directed Orally for 6 [...] omeprazole 20 mg delayed release oral capsule (20 sources) Proton Pump Inhibitor Start: 08-28-2023 End: 07-27-2024 take 1 capsule by mouth before mealtime omeprazole (PriLOSEC) [address] capsule Indications: Gastroesophageal reflux disease without esophagitis Take 1 capsule (20 mg) by mouth in the morning. Take before meals. Do not crush or chew.. 90 capsule 1 01/29/2024 07/27/2024 Active Start: 11-29-2022 omeprazole Ref ills(s) 0, [...] 10/01/2023 Active topiramate 50 mg oral tablet (7 sources) Start: 01-29-2024 End: 06-17-2024 take 1 tablet by mouth once daily topiramate (Topamax) 50 MG tablet Indications: NDPH (new daily persistent headache) Take 50 mg by mouth Daily 90 tablet 1 01/29/2024 06/17/2024 Discontinued (Discontinued by another clinician) Start: 10-01-2023 End: 10-24-2023 take 1 tablet by mouth twice daily as needed topiramate (Topamax) 50 mg tablet Take 1 tablet (50 mg) by mouth 2 times a day as needed. 0 10/24/2023 Active ubrogepant 100 mg oral table t (2 sources) Start: 10-08-2023 End: 11-07-2023 ubrogepant [...] procedure., # 2 tab(s), Refills(s) 0, [facility] [address], 170, cm, 01/02/22 9:19:00 EDT, Height/Length Dosing Start Date: 01/02/22 Status: Ordered Mens Multivitamin Oral Tablet (1 source) take 1 tablet by mouth once daily Mens Multivitamin Oral Tablet TAKE 1 TABLET DAILY. Quantity: 0 Refills: 0 Ordered: 21-Nov-2022 DO Active tiZANidine 2 mg oral capsule (6 sources) Central alpha-2 Adrenergic Agonist Start: 06-17-2024 End: 07-09-2024 take 1 capsule by mouth once tiZANidine (Zanaflex) 2 MG capsule Indications: Back pain of lumbosacral region with sciatica Take 1 capsule (2 mg) by mouth every 12 (twelve) hours if needed for muscle spasms for up to 14 days 28 capsule 06/17/2024 07/09/2024 Discontinued (Side effects) Triamcinolone (4 sources) Corticosteroid Start: 02-29-2020 Kenalog -40 mg Feb, 40 mg ubidecarenone 100 mg / vitamin e 5 unt oral capsule (6 sources) Start: 06-17-2024 End: 09-15-2024 take 1 capsule by mouth once daily coenzyme Q-10 100 MG capsule Indications: Leg cramping Take 1 capsule (100 mg) by mouth Daily 30 capsule 2 06/17/2024 07/09/2024 Discontinued (Side effects) Problems Active Problems Problem Classification Problem Date Documented Da te Episodic/Chronic Acute cerebrovascular disease (12 sources) Cerebrovascular accident; Translations: [Cerebral infarction, unspecified] Onset: 4 10-24-2023 Chronic Cardiac dysrhythmias (2 sources) Palpitations; Translations: [Palpitations] Onset: 4 10-24-2023 Episodic Cataract (9 sources) Cataract of right eye; Translations: [Unspecified cataract] Onset: 4 10-25-2023 Chronic Diabetes mellitus without complication (2 sources) Hyperglycemia; Translations: [Hyperglycemia, unspecified] Onset: 4 10-24-2023 Episodic Disorders of lipid metabolism (12 sources) Hyperlipidemia, unspecified; Translations: [Mixed hyperlipidemia] Onset: 1 12-12-2023 Chronic Esophageal disorders (12 sources) Gastroesophageal reflux disease; Translations: [Gastro-esophageal reflux disease without esophagitis] Onset: 1 08-28-2023 Chronic Genitourinary symptoms and ill-defined conditions (16 sources) Blood in urine; Translations: [Gross hematuria] Onset: 2 Episodic Headache; including migraine (20 sources) Chronic tension-type headache; Translations: [Chronic tension-type headache, not intractable] Onset: 3 10-24-2023 Chronic Hyperplasia of prostate (19 sources) [...] without residual deficits] Onset: 4 Episodic Other connective tissue disease (8 sources) Cramp in lower limb; Translations: [Cramp and spasm] Onset: 4 06-17-2024 Episodic Other diseases of kidney and ureters [...] 30; Translations: [Overweight] Onset: 4 12-12-2023 Episodic Other upper respiratory disease (8 sources) Feeling of lump in throat; Translations: [Sensation of lump in throat] Onset: 4 06-17-2024 Episodic Other upper respiratory disease (8 sources) Throat irritation; Translations: [Other diseases of pharynx] Onset: 4 06-17-2024 Episodic Residual codes; unclassified (8 sources) Obstructive sleep apnea syndrome; Translations: [Obstructive sleep apnea (adult) (pediatric)] Onset: 4 11-16-2022 Chronic Residual codes; unclassified (1 source) Obstructive sleep apnea (adult) (pediatric); Translations: [Obstructive sleep apnea (adult) (pediatric)] Onset: Chronic Residual codes; unclassified (1 source) Pain, unspecified; Translations: [Pain, unspecified] Onset: Episodic Spondylosis; intervertebral disc disorders; other back problems (6 sources) Degeneration of lumbar intervertebral disc; Translations: [Degeneration of intervertebral disc of lumbar region with discogenic back pain and lower extremity pain] 07-02-2024 Chronic Spondylosis; intervertebral disc disorders; other back problems (20 sources) Lumbago with sciatica; Translations: [Lumbago with sciatica, unspecified side] Onset: 4 06-17-2024 Episodic Superficial injury; contusion (6 sources) Blister; Translations: [Blister (nonthermal) of throat, initial encounter] Onset: 4 06-17-2024 Episodic Transient cerebral ischemia (1 source) Transient cerebral ischemia; Translations: [Transient cerebral ischemic attack, unspecified] 12-12-2023 Chronic Past or Other Problems Problem Classification Problem Date Documented Date Episodic/Chronic Abdominal pain (4 sources) Unspecified abdominal pain; Translations: [UNSPECIFIED ABDOMINAL PAIN] Onset: 11-22-2021 Episodic Mood disorders (9 sources) Mood disorders Onset: 08-28-2023 Resolved: 10-24-2023 10-24-2023 Noninfectious gastroenteritis (7 sources) Chronic diarrhea of unknown origin ; Translations: [Noninfective gastroenteritis and colitis, unspecified] Onset: 08-28-2023 08-28-2023 Episodic Other non-traumatic joint disorders (1 source) Pain in left shoulder; Translations: [PAIN IN LEFT SHOULDER] Onset: 11-23-2021 Episodic Screening and history of mental health and substance abuse codes (10 sources) Ex-smoker; Translations: [Personal history of tobacco use] Onset: 12-12-2023 12-12-2023 Episodic Comment on above: quit 1978; Unclassified (6 sources) Asymptomatic microscopic hematuria 10-09-2022 Unclassified (1 source) Acute cough R05.1 Unclassified (1 source) Onset: 12-12-2023 12-12-2023 Results Test Name Value Interpretation Reference Range Facility Ambulatory Visit Summaryon 0 03-09-2024 Ambulatory Visit Summary Ambulatory Visit Summary STEVE DE LEON :1940 Visit Date:03/09/2024 Ambulatory Visit Instructions Your [...] with Chrissie SOTELO MD, URL When: [facility] [address] [place] [id number]- Medications What How Much When Instructions Unchanged [...] to shrin (more content not included)... Normal [facility] Urology Office/Clinic Noteon 03-09-2024 Urology Office/Clinic Note [...] the plan Follow-up With When Contact Information ASHLEIGH POTTS, Chrissie Bradley, URL [address] [place] [id number]- Additional Instructions: PRN Patient Education Benign Prostatic Hyperplasia I, Lana Lancaster, personally scribed for Dr. Sotelo on 03/09/2024 08:22:31. . Documentation recorded by the scribe, Lana Lancaster, accurately reflects the services(s) I performed and decisions made by me. Authenticated by Dr. Sotelo on 03/09/2024 08:23:21. Portions of this record may have been created with voice recognition artificial intelligence software, specifically [employer], [employer] and or [employer]. Substitutions may have occurred due to the [...] Denies Tobacco (more content not included)... Normal [facility] Comment on above: Result Comment: Elec tronically Signed By: Chrissie SOTELO MD\.br\Date and Time Signed: 03/09/24 08:24 EDT\.br\Electronically Co-Signed By: Lana Lancaster\.br\Date and Time Co-Signed: 03/09/24 08:[address] CTA CAROTIDon 11-28-[address] CTA CAROTID Examination: CTA carotids Clinical History: Cerebrovascular accident (CVA), unspecified mechanism ([facility]) Stroke in August 2023. Assess embolic source Comparison: None CT CTA CAROTID Procedure: Multidetector CT angiogram performed through the cervical portion of the carotid arteries without complication, including source images and maximum intensity projection 3-D images displayed and reviewed on an independent PACS workstation by the radiologist. Automated exposure control was utilized. The [place] Symptomatic Carotid Endarterectomy Trial (NASCET)calculation of ICA [...] Sheldon MD on 11/28/2023 12:17 PM Normal [facility] CT CTA HEADon 11-28-[address] CTA HEAD History: Cerebrovascular accident (CVA), unspecified mechanism (CMS-HCC) Procedure: CT CTA HEAD Multidetector CT angiogram performed with IV contrast through the [place] using 3 -D Maximum intensity [...] aneurysm or major vessel occlusion of the [place], within limitations of CT. Flow is demonstrated within the vertebral arteries, basilar artery, bilateral posterior cerebral arteries, middle cerebral arteries and anterior cerebral arteries. 3D reformatted images confirm the source data findings. IMPRESSION: * Unremarkable CT angiogram [facility]. * If you have high clinical suspicion for occult process such as an infarct consider CT perfusion and brain MRI. 0 Finalized by Mckay Sheldon MD on 11/28/2023 12:33 PM Normal [facility] COVID + FLU Quick Testingon 09-08-2023 SARS-CoV-2 (COVID-19) RNA RANDALL+probe Ql (Unsp spec) Negative [facility] Other COVID + FLU Quick Testing Positive [facility] Other COVID + FLU Quick Testing Negative [facility] Other Office Visit (Cardiology)on 11-21-2022 Follow-up visit [...] up in 1 year. Retrieve stress from [place] The provider reviewed the following test(s) and [...] years the last of which was in [place] 2 and half years ago which was [...] I will retrieve the stress test from [place]. Patient is considered low risk for the [...] Vital Signs Recorded: 21Nov2022 10:36AMRecorded: 21Nov2022 10:34AM Otfzyzyi380, LUE, Tihlofo499, RUE, Sitting Loqxcerrv92, LUE, Xlkdpvp18, RUE, Sitting Heart Rate67, Apical Height5 ft 7 in Bwzwci077 lb BMI Nsgiprrnqs25.98 kg/m2 BSA Calculated1.96 Tobacco Useb) No PHQ-2 [...] no masses (more content not included)... [facility] Scre[facility].on 023 Adult depression screening assessment No [facility] 250 DO Work Phone: Fall risk assessment a) No falls within the last year [facility] 250 DO Work Phone: Tobacco use status CP b) No [facility] 250 DO Work Phone: CHEMISTRYOrdered By: SYSTEM SYSTEM on 11-16-2022 Anion gap [Moles/Vol] 9 mmol/L Normal 6 - 16 mEq/L F [facility] Remisol Calcium [Mass/Vol] 9.1 mg/dL Normal 8.9 [...] Normal >=59mL/min/1 .73 m2 FT Chem S Glucose [Mass/Vol] 73 mg/dL Normal [...] 32.6 g/dL Normal 31.4 - 36.0 gm/dL FT HemeAutoSS MCV (RBC) [Entitic vol] 97.3 fL Normal 80.0 - 100.0 fL [facility] HemeAutoSS Platelet mean volume (Bld) [Entitic vol] 8.1 fL Normal 6.4 - 10.8 fL [facility] HemeAutoSS Platelets (Bld) [#/Vol] 215.0 E9/L Normal 150.0 - 500.0 E9/L [facility] HemeAutoSS RBC (Bld) [#/Vol] 4.4 E12/L Normal 4.3 - 5.9 E12/L FT HemeAutoSS WBC corrected for nucl RBC Auto (Bld) [#/Vol] 5.0 E9/L Normal 4.0 - 11.0 E9/L FT HemeAutoSS URINALYSISOrdered By: Jayme Ramirez on 11-16-2022 [...] AM) Normal Negative [facility] UA Auto SS Vowinckel.plasma/Vowinckel .RBC (Bld) [Mass ratio] 0-3 /HPF Normal [...] [facility] UA Auto SS Urobilinogen Qn (U) [id number] {Jaleel'U}/dL Normal 0.0 - 1.0 EU/dL [facility] UA Auto SS WBC Auto Ql (U) Negative (11/16/22 9:55 AM) Normal Negative [facility] UA Auto SS WBC LM.HPF (Urine sed) [#/Area] 0-5 /HPF Normal 0-5/HPF [facility] UA Auto SS US SCROTUMon 10-17-2022 US [...] by: JERMAIN BROWN Date: 2022-10-17 15:11 Normal [facility] CT ABD/PELV W CONon 12-03-[address] [...] KINA MAHMOOD Date: 2021-12-02 08:29 Normal [facility] CBC AUTO DIFFon 11-22-2021 BASO # 0.0 103/ul Normal 0.0-0.1 [facility] Comment on above: Performed By: #### C BC #### [facility] [address] [address] [address] Ever Kenny Basophils/100 WBC (Bld) 0.2 % Normal 0.2-2.0 [facility] Comment on above: Performed By: #### C BC #### [facility] [address] [address] [address] Ever Kenny EO # 0.3 103/ul Normal 0.0-0.7 [facility] Comment on above: Performed By: #### C BC #### [facility] [address] [address] [address] Ever Kenny Eosinophils/100 WBC (Bld) 5.5 % Normal 0.9-7.0 [facility] Comment on above: Performed By: #### C BC #### [facility] [address] [address] [address] Ever Kenny Erythrocyte distribution width (RBC) [Ratio] 12.8 % Normal 11.0-15.0 [facility] Comment on above: Performed By: #### C BC #### [facility] [address] [place] [address] Dr. Ever Kenny Hematocrit (Bld) [Volume fraction] 47.1 % Normal 42.0-54.0 [facility] Comment on above: Performed By: #### C BC #### [facility] [address] [place] [address] Dr. Ever Kenny Hemoglobin (Bld) [Mass/Vol] 15.2 g/dL Normal 14.0-18.0 [facility] Comment on above: Performed By: #### C BC #### [facility] [address] [place] [address] Dr. Ever Kenny IG # 0.03 10e3/ul Normal 0.00-0.03 [facility] Comment on above: Performed By: #### C BC #### [facility] [address] [place] [address] Dr. Ever Kenny IG % 0.5 % Normal 0.0-0.5 [facility] Comment on above: Performed By: #### C BC #### [facility] [address] [place] [address] Dr. Ever Kenny LYMPH # 1.7 103/ul Normal 1.2-3.8 [facility] Comment on above: Performed By: #### C BC #### [facility] [address] [place] [address] Dr. Ever Kenny Lymphocytes/100 WBC (Bld) 26.9 % Normal 20.5-60.0 [facility] Comment on above: Performed By: #### C BC #### [facility] [address] [place] [address] Dr. Ever Kenny MANUAL DIFF REQ NO Normal [facility] Comment on above: Performed By: #### C BC #### [facility] [address] [place] [address] Dr. Ever Kenny MCH (RBC) [Entitic mass] 31.6 pg Normal 25.9-34.[address] [facility] Comment on above: Performed By: #### C BC #### [facility] [address] [place] [address] Dr. Ever Kenny MCHC (RBC) [Mass/Vol] 32.3 g/dL Normal 29.9-35.[address] [facility] Comment on above: Performed By: #### C BC #### [facility] [address] [place] [address] Dr. Ever Kenny MCV (RBC) [Entitic vol] 97.9 fL Critically high 80.0-94.0 [facility] Comment on above: Performed By: #### C BC #### [facility] [address] [place] [address] Dr. Ever Kenny MONO # 0.7 103/ul Normal 0.3-0.8 [facility] Comment on above: Performed By: #### C BC #### [facility] [address] [place] [address] Dr. Ever Kenny Monocytes/100 WBC (Bld) 11.1 % Normal 1.7-12.0 [facility] Comment on above: Performed By: #### C BC #### [facility] [address] [place] [address] Dr. Ever Kenny NEUT # 3.4 103/ul Normal 1.4-6.[address] [facility] Comment on above: Performed By: #### C BC #### [facility] [address] [place] [address] Dr. Ever Kenny Neutrophils/100 WBC (Bld) 55.8 % Normal 43.0-75.[address] [facility] Comment on above: Performed By: #### C BC #### [facility] [address] [place] [address] Dr. Ever Kenny Platelet mean volume (Bld) [Entitic vol] 9.2 fL Critically low 9.5-13.[address] [facility] Comment on above: Performed By: #### C BC #### [facility] [address] [address] [address] Ever Kenny PLT 222 103/ul Normal 150-450 [facility] Comment on above: Performed By: #### C BC #### [facility] [address] [address] [address] Ever Kenny RBC 4.81 106/ul Normal 4.70-6.10 [facility] Comment on above: Performed By: #### C BC #### [facility] [address] [address] [address] Ever Kenny WBC 6.1 103/ul Normal 4.0-11.0 [facility] Comment on above: Performed By: #### C BC #### [facility] [address] [place] [address] Dr. Ever Kenny LIPID PROFILEon 11-22-2021 CHOL-HDL RATIO NORM SEE BELOW Normal [facility] Comment on above: Result Comment: 3.3 - 4.4 LOW RISK 4.4 - 7.1 AVERAGE RISK 7.1 - 11.0 MODERATE RISK >11.0 HIGH RISK Performed By: #### L IPID, CMP #### [facility] [address] [place] [address] Dr. Ever Kenny Cholesterol [Mass/Vol] 206 mg/dL Critically high <=200 [facility] Comment on above: Performed By: #### L IPID, CMP #### [facility] [address] [place] [address] Dr. Ever Kenny Cholesterol in HDL [Mass/Vol] 57 mg/dL Normal [facility] Comment on above: Performed By: #### L IPID, CMP #### [facility] [address] [address] [address] Ever Kenny Cholesterol in LDL [Mass/Vol] 129.4 mg/dL Normal [facility] Comment on above: Performed By: #### L IPID, CMP #### [facility] [address] [place] [address] Dr. Ever Kenny Cholesterol.total/Chol esterol in HDL [Mass ratio] 3.6 {ratio} Normal [facility] Comment on above: Performed By: #### L IPID, CMP #### [facility] [address] [address] [address] Ever Kenny HDL NORMAL > or = 60 mg/dl - LOW CARDIOVASCULAR RISK <40 mg/dl - HIGH CARDIOVASCULAR RISK Normal [facility] Comment on above: Performed By: #### L IPID, CMP #### [facility] [address] [address] [address] Ever Kenny LDL CALC NORMAL SEE BELOW Normal [facility] Comment on above: Result Comment: <100 mg/dl OPTIMAL 100 - 129 mg/dl NEAR OR ABOVE OPTIMAL 130 - 159 mg/dl BORDERLINE HIGH 160 - 189 mg/dl HIGH >190 mg/dl VERY HIGH Performed By: #### L IPID, CMP #### [facility] [address] [address] [address] Ever Kenny Triglyceride [Mass/Vol] 98 mg/dL Normal <=150 [facility] Comment on above: Performed By: #### L IPID, CMP #### [facility] [address] [address] [address] Evre Kenny VLDL CALC 19.6 mg/dL Normal [facility] Comment on above: Performed By: #### L IPID, CMP #### [facility] [address] [address] [address] Ever Kenny PROF 14(COMP METB)on 022 Albumin [Mass/Vol] 3.9 g/dL Normal 3.5-5.0 [facility] [facility] Comment on above: Performed By: #### L IPID, CMP #### [facility] [address] [address] [address] Ever Kenny Albumin/Globulin [Mass ratio] 1.3 {ratio} Normal [facility] Comment on above: Performed By: #### L IPID, CMP #### [facility] [address] [address] [address] Ever Kenny ALP [Catalytic activity/Vol] 52 U/L Normal 38-126 [facility] Comment on above: Performed By: #### L IPID, CMP #### [facility] [address] [address] [address] Ever Kenny ALT [Catalytic activity/Vol] 24 U/L Normal 21-72 [facility] Comment on above: Performed By: #### L IPID, CMP #### [facility] [address] [address] [address] Ever Kenny Anion gap [Moles/Vol] 9.8 mmol/L Normal [facility] Comment on above: Performed By: #### L IPID, CMP #### [facility] [address] [address] [address] Ever eKnny AST [Catalytic activity/Vol] 15 U/L Critically low 17-59 [facility] Comment on above: Performed By: #### L IPID, CMP #### [facility] [address] [place] [address] Dr. Ever Kenny Bilirubin [Mass/Vol] 0.7 mg/dL Normal 0.2-1.3 [facility] Comment on above: Performed By: #### L IPID, CMP #### [facility] [address] [address] [address] Ever Kenny Calcium [Mass/Vol] 8.8 mg/dL Normal 8.4-10.2 [facility] Comment on above: Performed By: #### L IPID, CMP #### [facility] [address] [place] [address] Dr. Ever Kenny Chloride [Moles/Vol] 106 mmol/L Normal 98-[address] [facility] Comment on above: Performed By: #### L IPID, CMP #### [facility] [address] [address] [address] Ever Kenny CO2 [Moles/Vol] 29.5 mmol/L Normal 22.0-30.0 [facility] Comment on above: Performed By: #### L IPID, CMP #### [facility] [address] [address] [address] Ever Kenny Creatinine [Mass/Vol] 1.05 mg/dL Normal 0.66-1.25 [facility] Comment on above: Performed By: #### L IPID, CMP #### [facility] [address] [address] [address] Ever Kenny EGFR-AF CHADIAN >60 Normal >=60 [facility] Comment on above: Performed By: #### L IPID, CMP #### [facility] [address] [address] [address] Ever Kenny EGFR-NON AF CHADIAN >60 Normal >=60 [facility] Comment on above: Performed By: #### L IPID, CMP #### [facility] [address] [address] [address] Ever Kenny Globulin (S) [Mass/Vol] 2.9 g/dL Normal [facility] Comment on above: Performed By: #### L IPID, CMP #### [facility] [address] [address] [address] Ever Kenny Glucose [Mass/Vol] 105 mg/dL Normal 74-106 [facility] Comment on above: Performed By: #### L IPID, CMP #### [facility] [address] [address] [address] Ever Kenny Potassium [Moles/Vol] 4.3 mmol/L Normal 3.4-5.0 [facility] Comment on above: Performed By: #### L IPID, CMP #### [facility] [address] [address] [address] Ever Kenny Protein [Mass/Vol] 6.8 g/dL Normal 6.1-8.2 [facility] Comment on above: Performed By: #### L IPID, CMP #### [facility] [address] [address] [address] Ever Kenny Sodium [Moles/Vol] 141 mmol/L Normal 137-145 [facility] Comment on above: Performed By: #### L IPID, CMP #### [facility] [address] [address] [address] Ever Kenny Urea nitrogen [Mass/Vol] 19.0 mg/dL Normal 9.0-20.0 [facility] Comment on above: Performed By: #### L IPID, CMP #### [facility] [address] [address] [address] Ever Kenny Urea nitrogen/Creatinine [Mass ratio] 18.1 mg/mg Normal [facility] Comment on above: Performed By: #### L IPID, CMP #### [facility] [address] [address] [address] Ever Kenny UA (CLEAN/CATCH) MICROSCOPIC IF INDICATEon 11-22-2021 Bilirubin Ql (U) Negative Normal NEGATIVE [facility] Comment on above: Performed By: #### U ARMICR UMICRO #### [facility] [address] [address] [address] Ever Kenny Clarity (U) CLEAR Normal CLEAR [facility] Comment on above: Performed By: #### U ARMVERONICAR UMICRO #### [facility] [address] [place] [address] Dr. Ever Kenny Color (U) LT. YELLOW Normal YELLOW [facility] Comment on above: Performed By: #### U ARMVERNOICAR UMICRO #### [facility] [address] [place] [address] Dr. Ever Kenny Glucose Ql (U) Negative Normal NEGATIVE [facility] Comment on above: Performed By: #### U ARMVERONICA UMICRO #### [facility] [address] [place] [address] Dr. Ever Kenny Hemoglobin Ql (U) MODERATE Abnormal NEGATIVE [facility] Comment on above: Performed By: #### U ARMVERONICAR UMICRO #### [facility] [address] [address] [address] Ever Kenny Ketones Ql (U) Negative Normal NEGATIVE [facility] Comment on above: Performed By: #### U ARMVERONICA UMICRO #### [facility] [address] [place] [address] Dr. Ever Kenny LEUKOCYTES Negative Normal NEGATIVE [facility] Comment on above: Performed By: #### U LALYA UMICRO #### [facility] [address] [address] [address] Ever Kenny Nitrite Ql (U) Negative Normal NEGATIVE [facility] Comment on above: Performed By: #### PARKER WARREN #### [facility] [address] [place] [address] Dr. Ever Kenny pH (U) 7.0 [pH] Normal 5-9 [facility] Comment on above: Performed By: #### PARKER WARREN #### [facility] [address] [place] [address] Dr. Ever Kenny SPEC GRAVITY 1.010 Normal 1.005-<=1.02 5 [facility] Comment on above: Performed By: #### PARKER WARREN #### [facility] [address] [place] [address] Dr. Ever Kenny UA PROTEIN Negative Normal NEGATIVE/ TRACE [facility] Comment on above: Performed By: #### PARKER WARREN #### [facility] [address] [place] [address] Dr. Ever Kenny UR MICRO IND INDICATED Normal [facility] Comment on above: Performed By: #### PARKER WARREN #### [facility] [address] [place] [address] Dr. Ever Kenny Urobilinogen Qn (U) 0.2 {Jaleel'U}/dL Normal 0.2 - 1. 0 [facility] Comment on above: Performed By: #### PARKER WARREN #### [facility] [address] [place] [address] Dr. Ever Kenny URINE MICROSCOPIC ONLYon BACTERIA NONE SEEN Normal NONE SEEN [facility] Comment on above: Performed By: #### PARKER WARREN #### [facility] [address] [place] [address] Dr. Ever Kenny Bacteria identified Cx Nom (U) NOT INDICATED Normal [facility] Comment on above: Performed By: #### PARKER WARREN #### [facility] [address] [place] [address] Dr. Ever Kenny CAST NONE SEEN Normal NONE SEEN [facility] Comment on above: Performed By: #### U ARMICR, UMICRO #### [facility] [address] [place] [address] Dr. Ever Kenny Crystals LM Nom (Urine sed) NONE SEEN Normal NONE SEEN [facility] Comment on above: Performed By: #### U ARMICR, UMICRO #### [facility] [address] [place] [address] Dr. Ever Kenny Epithelial cells LM Ql (Urine sed) NONE SEEN Normal NONE SEEN /RARE [facility] Comment on above: Performed By: #### U ARMICR, UMICRO #### [facility] [address] [place] [address] Dr. Ever Kenny MUCOUS SMALL Abnormal NONE SEEN The [facility] Comment on above: Performed By: #### U ARMICR, UMICRO #### [facility] [address] [place] [address] Dr. Ever Kenny RBC 0-2 Normal 0-[address] [facility] Comment on above: Performed By: #### U ARMICR, UMICRO #### [facility] [address] [address] [address] Ever Kenny SPERMATOZOA, UR PRESENT Abnormal [facility] Comment on above: Performed By: #### U ARMICR, UMICRO #### [facility] [address] [place] [address] Dr. Ever Kenny WBC NONE SEEN Normal NONE SEEN [facility] Comment on above: Performed By: #### U ARMICR, UMICRO #### [facility] [address] [place] [address] Dr. Ever Kenny Vital Signs Date Time Vital Sign Value Performing Clinician Facility 07-09-2024 11:38-0400 Body height 170.2 cm Stacey Vaughn [employer] Work Phone: [facility] 07-09-2024 11:38-0400 Body mass index (BMI) [Ratio] 26.09 kg/m2 Stacey Vaughn [employer] Work Phone: [facility] 07-09-2024 11:38-0400 Body temperature 96.69 [degF] Stacey Vaughn [employer] Work Phone: [facility] 07-09-2024 11:38-0400 Body weight 75.57 kg Stacey Vaughn [employer] Work Phone: [facility] 07-09-2024 11:38-0400 Diastolic blood pressure 60 mm[Hg] Stacey Vaughn [employer] Work Phone: [facility] 07-09-2024 11:38-0400 Heart rate 75 /min Stacey Vaughn [employer] Work Phone: [facility] 07-09-2024 11:38-0400 Respiratory rate 16 /min Stacey Vaughn [employer] Work Phone: [facility] 07-09-2024 11:38-0400 SaO2% (BldA) [Mass fraction] 93 % Stacey Vaughn [employer] Work Phone: [facility] 07-09-2024 11:38-0400 Systolic blood pressure 116 mm[Hg] Stacey Vaughn [employer] Work Phone: [facility] 06-17-2024 09:41-0400 Body mass index (BMI) [Ratio] 26.78 kg/m2 Stacey Vaughn [employer] Work Phone: [facility] 06-17-2024 09:41-0400 Body temperature 97.81 [degF] Stacey Vaughn [employer] Work Phone: [facility] 06-17-2024 09:41-0400 Body weight 77.56 kg Stacey Vaughn [employer] Work Phone: [facility] 06-17-2024 09:41-0400 Diastolic blood pressure 64 mm[Hg] Stacey Vaughn [employer] Work Phone: [facility] 06-17-2024 09:41-0400 Heart rate 57 /min Stacey Francistrick [employer] Work Phone: [facility] 06-17-2024 09:41-0400 SaO2% (BldA) [Mass fraction] 99 % Stacey Castillopatrick [employer] Work Phone: [facility] 06-17-2024 09:41-0400 Systolic blood pressure 122 mm[Hg] Stacey Castillopatrick [employer] Work Phone: [facility] 03-09-2024 07:58-0400 Blood Pressure Location Chrissie SOTELO [facility] 03-09-2024 07:58-0400 Diastolic blood pressure 60 mm[Hg] Chrissie SOTELO [facility] 03-09-2024 07:58-0400 Heart rate 62 /min Chrissie SOTELO [facility] 03-09-2024 07:58-0400 Respiratory rate 18 /min Chrissie SOTELO [facility] 03-09-2024 07:58-0400 Systolic blood pressure 130 mm[Hg] Chrissie SOTELO [facility] 12-12-2023 11:23-0400 Body height 170.2 cm Taryn Real MD Work Phone: [facility] 12-12-2023 11:23-0400 Body mass index (BMI) [Ratio] 26.63 kg/m2 Taryn Real MD Work Phone: [facility] 12-12-2023 11:23-0400 Body weight 77.11 kg Taryn Real MD Work Phone: [facility] 12-12-2023 11:23-0400 Diastolic blood pressure 70 mm[Hg] Taryn Real MD Work Phone: [facility] 12-12-2023 11:23-0400 Heart rate 62 /min Taryn Real MD Work Phone: [facility] 12-12-2023 11:23-0400 Systolic blood pressure 128 mm[Hg] Taryn Real MD Work Phone: [facility] 10-24-2023 10:19-0500 Body height 170.2 cm Larissa Bach MD Work Phone: [facility] 10-24-2023 10:19-0500 Body mass index (BMI) [Ratio] 26.07 kg/m2 Larissa Bach MD Work Phone: [facility] 10-24-2023 10:19-0500 Body weight 75.52 kg Larissa Bach MD Work Phone: [facility] 10-24-2023 10:19-0500 Diastolic blood pressure 70 mm[Hg] Larissa Bach MD Work Phone: [facility] 10-24-2023 10:19-0500 Heart rate 72 /min Larissa Bach MD Work Phone: [facility] 10-24-2023 10:19-0500 Systolic blood pressure 126 mm[Hg] Larissa Bach MD Work Phone: [facility] 09-08-2023 12:00-0500 Body height 168.91 cm Jeannie Mclean Other [employer] Other 09-08-2023 12:00-0500 Body mass index (BMI) [Ratio] 26.8 kg/m2 Jeannie Mclean Other [employer] Other 09-08-2023 12:00-0500 Body temperature 98.9 [degF] Jeannie Mclean Other [employer] Other 09-08-2023 12:00-0500 Body weight 76.48 kg Jeannie Mclean Other [employer] Other 09-08-2023 12:00-0500 Respiratory rate 18 /min Jeannie Mclean Other [facility] Other 09-08-2023 12:00-0500 SaO2% (BldA) [Mass fraction] 93 % Jeanine Mclean Other [employer] Other 08-13-2023 10:20-0500 Body height 168.91 cm Jama King Other [employer] Other 08-13-2023 10:20-0500 Body mass index (BMI) [Ratio] 27.42 kg/m2 Jama Scovanner Other [employer] Other 08-13-2023 10:20-0500 Body weight 78.25 kg Jama Scovanner Other [facility] Other 08-13-2023 10:20-0500 Diastolic blood pressure 70 mm[Hg] Jama Scovanner Other [facility] Other 08-13-2023 10:20-0500 Systolic blood pressure 132 mm[Hg] Jama Scovanner Other [facility] Other 07-09-2023 10:20-0400 Body height 168.91 cm Jama Scovanner Other [employer] Other 07-09-2023 10:20-0400 Body mass index (BMI) [Ratio] 27.34 kg/m2 Jama Scovanner Other [employer] Other 07-09-2023 10:20-0400 Body weight 78.02 kg Jama King Other [employer] Other 07-09-2023 10:20-0400 Diastolic blood pressure 67 mm[Hg] Jama King Other [employer] Other 07-09-2023 10:20-0400 Systolic blood pressure 129 mm[Hg] Jama Scatilio Other [employer] Other 03-04-2023 09:03-0400 Blood Pressure Location Chrissie [employer] [facility] 03-04-2023 09:03-0400 Diastolic blood pressure 78 mm[Hg] Chrissie [employer] [facility] 03-04-2023 09:03-0400 Heart rate 68 /min Chrissie [employer] [facility] 03-04-2023 09:03-0400 Respiratory rate 16 /min Chrissie [employer] [facility] 03-04-2023 09:03-0400 Systolic blood pressure 128 mm[Hg] Chrissie [employer] [facility] 12-18-2022 11:15-0400 Body height 168.91 cm Jeannie Mclean Other [employer] Other 12-18-2022 11:15-0400 Body mass index (BMI) [Ratio] 29.41 kg/m2 Jeannie Mclean Other [employer] Other 12-18-2022 11:15-0400 Body temperature 97.1 [degF] Jeannie Mclean Other [employer] Other 12-18-2022 11:15-0400 Body weight 83.92 kg Jeannie Mclean Other [employer] Other 12-18-2022 11:15-0400 Diastolic blood pressure 75 mm[Hg] Jeannie Mclean Other [employer] Other 12-18-2022 11:15-0400 Respiratory rate 18 /min Jeannie Mclean Other [employer] Other 12-18-2022 11:15-0400 SaO2% (BldA) [Mass fraction] 96 % Jeannie Mclean Other [employer] Other 12-18-2022 11:15-0400 Systolic blood pressure 125 mm[Hg] Jeannie Mclean Other [employer] Other 11-29-2022 12:25-0400 Body temperature 97.7 [degF] Chrissie [employer] [facility] 11-29-2022 12:25-0400 Diastolic blood pressure 89 mm[Hg] Chrissie [employer] [facility] 11-29-2022 12:25-0400 Heart rate 64 /min Chrissie [employer] [facility] 11-29-2022 12:25-0400 Respiratory rate 18 /min Chrissie [employer] [facility] 11-29-2022 12:25-0400 SaO2% (BldA) [Mass fraction] 97 % Chrissie [employer] [facility] 11-29-2022 12:25-0400 Systolic blood pressure 139 mm[Hg] Chrissie SOTELO [facility] 11-29-2022 11:25-0400 Blood Pressure Location Chrissie SOTELO [facility] 11-29-2022 11:25-0400 Body temperature 97.7 [degF] Chrissie SOTELO [facility] 11-29-2022 11:25-0400 Diastolic blood pressure 72 mm[Hg] Chrissie SOTELO [facility] 11-29-2022 11:25-0400 Heart rate 62 /min Chrissie SOTELO [facility] 11-29-2022 11:25-0400 Respiratory rate 18 /min Chrissie SOTELO [facility] 11-29-2022 11:25-0400 SaO2% (BldA) [Mass fraction] 97 % Chrissie SOTELO [facility] 11-29-2022 11:25-0400 Systolic blood pressure 135 mm[Hg] Chrissie SOTELO [facility] 11-29-2022 11:11-0400 Blood Pressure Location Chrissie SOTELO [facility] 11-29-2022 11:11-0400 Body temperature 96.8 [degF] Chrissie SOTELO [facility] 11-29-2022 11:11-0400 Diastolic blood pressure 68 mm[Hg] Chrissie SOTELO [facility] 11-29-2022 11:11-0400 Heart rate 61 /min Chrissie SOTELO [facility] 11-29-2022 11:11-0400 Respiratory rate 16 /min Chrissie SOTELO [facility] 11-29-2022 11:11-0400 SaO2% (BldA) [Mass fraction] 96 % Chrissie SOTELO [facility] 11-29-2022 11:11-0400 Systolic blood pressure 133 mm[Hg] Chrissie SOTELO [facility] 11-29-2022 11:01-0400 Blood Pressure Location Chrissie SOTELO [facility] 11-29-2022 10:40-0400 Respiratory rate 13 /min Chrissie SOTELO [facility] 11-29-2022 10:35-0400 Respiratory rate 12 /min Chrissie SOTELO [facility] 11-29-2022 10:30-0400 Respiratory rate 12 /min Chrissie SOTELO [facility] 11-29-2022 08:30-0400 Body temperature 97.7 [degF] Chrissie SOTELO [facility] 11-29-2022 08:30-0400 Heart rate 78 /min Chrissie SOTELO [facility] 11-21-2022 10:36-0400 Diastolic blood pressure 78 mm[Hg] [facility] Work Phone: [facility] [employer] [employer] DO Work Phone: 11-21-2022 10:36-0400 Systolic blood pressure 122 mm[Hg] [facility] Work Phone: [facility] [facility] DO Work Phone: 11-21-2022 10:34-0400 Body height 170.18 cm Antoni P Yunait Work Phone: [facility] [facility] DO Work Phone: 11-21-2022 10:34-0400 Body mass index (BMI) [Ratio] 28.98 kg/m2 Antoni P Yunait Work Phone: [facility] [facility] DO Work Phone: 11-21-2022 10:34-0400 Body surface area Derived from formula 1.96 m2 Antoni P House Work Phone: [facility] [facility] DO Work Phone: 11-21-2022 10:34-0400 Body weight 83.92 kg Antoni P House Work Phone: [facility] [facility] DO Work Phone: 11-21-2022 10:34-0400 Diastolic blood pressure 76 mm[Hg] Antoni P House Work Phone: [facility] [facility] DO Work Phone: 11-21-2022 10:34-0400 Heart rate 67 /min Antoni P House Work Phone: [facility] [facility] DO Work Phone: 11-21-2022 10:34-0400 Systolic blood pressure 124 mm[Hg] Antoni P House Work Phone: [facility] DO Work Phone: 11-16-2022 09:42-0500 Diastolic blood pressure 78 mm[Hg] Chrissie COOK [facility] 11-16-2022 09:42-0500 Heart rate 60 /min Chrissie COOK [facility] 11-16-2022 09:42-0500 Mean blood pressure 96 mm[Hg] Chrissie COOK [facility] 11-16-2022 09:42-0500 Systolic blood pressure 132 mm[Hg] Chrissie COOK [facility] 11-16-2022 09:42-0500 Heart rate 60 /min Chrissie COOK [facility] 11-16-2022 09:42-0500 SaO2% (BldA) [Mass fraction] 98 % Chrissie SOTELO [facility] 11-16-2022 09:42-0500 Body temperature 97.88 [degF] Chrissie SOTELO [facility] 11-16-2022 09:41-0500 Diastolic blood pressure 78 mm[Hg] Chrissie SOTELO [facility] 11-16-2022 09:41-0500 Mean blood pressure 97 mm[Hg] Chrissie SOTELO [facility] 11-16-2022 09:41-0500 Systolic blood pressure 134 mm[Hg] Chrissie SOTELO [facility] 01-15-2022 13:36-0400 Blood Pressure Location Chino Flores Jr. [facility] 01-15-2022 13:36-0400 Diastolic blood pressure 55 mm[Hg] Chino Flores Jr. [facility] 01-15-2022 13:36-0400 Heart rate 73 /min Chino Flores Jr. [facility] 01-15-2022 13:36-0400 Systolic blood pressure 128 mm[Hg] Chino Flores Jr. [facility] Encounters Encounter Date Encounter Type Care Provider Facility Start: 07-09-2024 End: 07-09-2024 Prerna Vaughn NP Work Phone: [facility] Start: 07-09-2024 End: 07-09-2024 Bamboo flowsheet Stacey Francistrick [employer] Work Phone: [facility] Start: 07-09-2024 End: 07-09-2024 ambulatory STACEY VAUGHN Not Available Start: 07-09-2024 End: 07-09-2024 Office outpatient visit 15 minutes Stacey Francistrick [employer] Work Phone: [facility] Comment on above: Back pain of lumbosa cral region with sciatica (Primary Dx); Lumbar foraminal stenosis; Degeneration of intervertebral disc of lumbar region with discogenic back pain and lower extremity pain Start: 07-02-2024 End: 07-02-2024 Orders Only Stacey Francistrick [employer] Work Phone: [facility] Comment on above: Degeneration of inte rvertebral disc of lumbar region with discogenic back pain and lower extremity pain (Primary Dx); Central spinal stenosis; Foraminal stenosis of lumbar region Start: 06-17-2024 End: 06-17-2024 Bamboo flowsheet Stacey Castillopatrick [employer] Work Phone: [facility] Start: 06-17-2024 End: 06-17-2024 Bamboo flowsheet Stacey Junezpatrick [employer] Work Phone: [facility] Start: 06-17-2024 End: 06-17-2024 ambulatory STACEY VAUGHN Not Available Start: 06-17-2024 End: 06-17-2024 Office outpatient visit 15 minutes Stacey Castillopatrick [employer] Work Phone: [facility] Comment on above: Mixed hyperlipidemia (CMS/HCC) (Primary Dx); Gastroesophageal reflux disease without esophagitis; Chronic migraine without aura without status migrainosus, not intractable (CMS/HCC); Leg cramping; Back pain of lumbosacral region with sciatica; Sensation of lump in throat; Throat irritation Start: 03-09-2024 End: 03-09-2024 ambulatory Chrissie SOTELO Facility: [facility] Start: 03-09-2024 End: 03-09-2024 Patient encounter procedure Chrissie Kirk SOTELO [facility] Start: 01-29-2024 End: 01-29-2024 ambulatory COOL LORINRalfYARYD Not Available Start: 12-12-2023 End: 12-12-2023 Office outpatient visit 15 minutes Taryn Real MD Work Phone: [facility] Comment on above: TIA (transient ische re attack) (Primary Dx); Mixed hyperlipidemia; BMI 26.0-26.9,adult; Former smoker Start: 11-28-2023 End: 11-29-2023 [facility] Start: 11-28-2023 End: 11-28-2023 [facility] Start: 10-29-2023 End: 10-29-2023 [facility] Available Start: 10-24-2023 Telephone encounter Olena pena CMA [facility] Comment on above: Follow up Start: 10-24-2023 End: 10-24-2023 ambulatory [facility] Start: 10-24-2023 End: 10-24-2023 Office outpatient new 45 minutes Larissa Bach MD [facility] Comment on above: Cerebrovascular acci dent (CVA), unspecified mechanism (CMS- HCC) (Primary Dx); BRITTANY on CPAP; Chronic tension-type headache, not intractable; Cerebrovascular accident within last 3 months; Hyperglycemia; Palpitation; Cataract of right eye, unspecified cataract type Start: 10-13-2023 ambulatory COOL WNED [facility] Start: 10-09-2023 Telephone encounter Lauren [facility] Comment on above: STROKE REFERRAL Start: 10-01-2023 End: 10-01-2023 ambulatory COOL FAWWAD Not Available Start: 09-08-2023 End: 09-08-2023 ambulatory Jeannie Mclean Other [employer] Other Start: 09-08-2023 Office outpatient vi sit 25 minutes Jeannie Vinay [facility] Start: 08-28-2023 Patient encounter procedure Stacey Castillobetty MOORE Work Phone: [facility] Start: 08-28-2023 End: 08-28-2023 ambulatory SHAIKH LUIS ALBERTO Not Available Start: 08-13-2023 End: 08-13-2023 ambulatory Jama Scovanner Other [employer] Other Start: 08-13-2023 Office outpatient vi sit 15 minutes Jama Scovanner [facility] Start: 07-09-2023 End: 07-09-2023 ambulatory Jama Scovanner Other [employer] Other Start: 07-09-2023 Office outpatient ne w 30 minutes Jama Scovanner [facility] Start: 03-04-2023 End: 03-04-2023 Patient encounter procedure Chrissie SOTELO [facility] Start: 12-21-2022 End: 12-21-2022 Patient encounter procedure Chrissie SOTELO [facility] Start: 12-18-2022 End: 12-18-2022 ambulatory Jeannie Mclean Other [employer] Other Start: 12-18-2022 Office outpatient vi sit 15 minutes Jeannie Mclean [facility] [place] Start: 11-29-2022 End: 11-29-2022 Admission to same day surgery center Chrissie SOTELO [facility] Start: 11-21-[address] Antoni Cho Facility: Start: 11-21-2022 Office consultation new/estab patient 60 min Antoni Cho Work Phone: [facility] 250 DO Work Phone: Start: 11-16-[address] Antoni Cho Facility: Start: 11-16-2022 End: 11-16-2022 Patient encounter procedure Chrissie SOTELO [facility] Start: 10-17-2022 End: 10-18-[address] CHRISSIE SOTELO Facility:[facility] Start: 10-09-2022 End: 10-09-2022 Patient encounter procedure Chrissie SOTELO [facility] Start: 01-15-2022 End: 01-15-2022 Patient encounter procedure Chino Flores Jr. [facility] Start: 12-01-2021 End: 12-02-[address] ANTONI CHO Facility:[facility] Start: 11-22-2021 End: 11-23-[address] ANTONI CHO Facility:[facility] Patient encounter status Antoni Cho Work Phone: [facility] 250 DO Work Phone: Procedures Date Procedure Procedure Detail Performing Clinician Start: 10-24-2023 Adult depression scr eening assessment Olena Burkett GREENSMAN Start: 11-29-2022 Exploration of scrotum Chrissie SOTELO Start: 11-29-2022 Spermatic cord struc ture (body structure) Chrissie SOTELO Start: 01-15-2022 Cystoscopy Chino velazquez Jr. Start: 11-22-[address] LINDA SOTELO Comment on above: Performed By: #### P SAD #### [facility] [address] [address] [address] Ever Kenny Start: 01-27-2020 Colonoscopy Lauren elena Start: 09-09-2019 Total colonoscopy Sarah Cho Work Phone: Cataract (disorder) Chrissie SOTELO Colonoscopy Chino Olivo Excision of lipoma Antoni Kirk Cho Work Phone: Tonsillectomy Chino rosa Tonsillectomy Antoni oswald Work Phone: Plan of Treatment Date Care Activity Detail Author Start: 01-26-2025 Screening for malign ant neoplasm of colon [facility] Start: 10-24-2024 Adult BMI Screening Adult BMI Screen ing [facility] Start: 10-24-2024 Depression Screening [facility] Start: 10-24-2024 Tobacco Screening [facility]ening [facility] Start: 09-15-2024 End: 09-15-2024 Patient encounter procedure 09/15/2024 8:30 AM EST Office Visit [facility] [address] [place] [address] Stacey Vaughn NP [address] [place] [address] [facility] Start: 09-12-2024 DTaP/Tdap/Td Vaccine s (2 - Td or Tdap) DTaP/Tdap/Td Vaccines (2 - Td or Tdap) [facility] Start: 08-28-2024 Medicare Annual Well ness (AWV) Medicare Annual Wellness (AWV) [facility] Start: 08-07-2024 Tobacco Screening [facility]ening [facility] Start: 08-06-2024 Adult BMI Screening Adult BMI Screen ing [facility] Start: 07-20-2024 End: 07-20-2024 Patient encounter procedure 07/20/2024 9:30 AM EST Office Visit [facility] [address] [place] [address] Stacey Vaughn, OSCAR [address] [place] [address] [facility] Start: 07-15-2024 Pneumococcal Vaccine : 65+ Years (1 of 1 - PCV) Pneumococcal Vaccine: 65+ Years (1 of 1 - PCV) [facility] Comment on above: Postponed from 12/05 (Other Medical Reasons) Start: 07-09-2024 End: 07-09-2025 MR Lumbar spine WO contrast MR lumbar spine wo contrast Imaging Routine Back pain of lumbosacral region with sciatica Lumbar foraminal stenosis Degeneration of intervertebral disc of lumbar region with discogenic back pain and lower extremity pain Expected: 07/09/2024, Expires: 07/09/2025 [facility] Work Phone: Comment on above: Expected: 07/09/2024 , Expires: 07/09/2025 Start: 05-10-2024 Influenza vaccination [facility] Start: 11-28-2023 End: 11-28-2023 Patient encounter procedure [facility] Start: 11-12-2023 FUV, Provider: Taryn Real, Status: Pen, Time: 10:50 AM FUV, Provider: Taryn Real, Status: Pen, Time: 10:50 [address] [place] [address] DO Work Phone: Start: 10-24-2023 End: 10-24-2024 CTA Carotid artery W contrast IV CT angiogram carotid Imaging Routine Cerebrovascular accident (CVA), unspecified mechanism ([facility]) Expected: 10/24/2023, Expires: 10/24/2024 [facility] Comment on above: Expected: 10/24/2023 , Expires: 10/24/2024 Start: 10-24-2023 End: 10-24-2024 CTA Head Arteries W contrast IV CT angiogram head Imaging Routine Cerebrovascular accident (CVA), unspecified mechanism ([facility]) Expected: 10/24/2023, Expires: 10/24/2024 [facility] Work Phone: Comment on above: Expected: 10/24/2023 , Expires: 10/24/2024 Start: 10-24-2023 End: 10-24-2024 Echo complete W/O contrast Echo complete W/O contrast Echocardiography Routine Cerebrovascular accident (CVA), unspecified mechanism (CMS-HCC) Cerebrovascular accident within last 3 months Expected: 10/24/2023, Expires: 10/24/2024 [facility] Comment on above: Expected: 10/24/2023 , Expires: 10/24/2024 Start: 10-24-2023 End: 10-24-2024 Event monitor Event monitor Cardiac Services Routine Cerebrovascular accident (CVA), unspecified mechanism (CMS-HCC) Palpitation Expected: 10/24/2023, Expires: 10/24/2024 [facility] Comment on above: Expected: 10/24/2023 , Expires: 10/24/2024 Start: 10-24-2023 End: 10-24-2023 Patient encounter procedure 10/24/2023 10:00 AM EST Office Visit [facility] [address] [place] [phone] Larissa Bach MD [address] [place] [address], [address] [place] [address] [facility] Start: 05-10-2023 COVID-19 Vaccine ( season) COVID-19 Vaccine ( season) [facility] Start: 05-10-2023 Influenza vaccination Influenza Vacc ine [facility] Start: 2005 Fall Risk Screening Fall Risk Screen ing [facility] Start: 2005 Pneumococcal Vaccine : 65+ Years (1 of 1 - PCV) Pneumococcal Vaccine: 65+ Years (1 of 1 - PCV) [facility] Start: 1990 Administration of varicella zoster vaccine Zoster (Shingles) Vaccine (1 of 2) [facility] Start: 1990 Zoster Vaccines (1 of 2) Zoster Vacc magdalene (1 of 2) [facility] Start: 12-06-1959 DTaP,Tdap and Td Vaccines (1 - Tdap) DTaP,Tdap and Td Vaccines (1 - Tdap) [facility] Start: 1958 Adult BMI Follow Up Plan Adult BMI F ollow Up Plan [facility] Start: 1958 Diabetes mellitus screening Diabetes Screening [facility] Start: 1952 Depression Screening Depression Scre ening [facility] Start: 1940 Lipid panel Lipid Panel [facility] Start: 1940 Medicare Annual Well ness Visit [facility] End: 10-24-2024 Creatinine includes GFR, serum Creatinine includes GFR, serum Lab Routine Cerebrovascular accident (CVA), unspecified mechanism ([facility]) 1 Occurrences starting 10/24/2023 until 10/24/2024 [facility] Comment on above: 1 Occurrences starti ng 10/24/2023 until 10/24/2024 End: 10-24-2024 Hemoglobin A1c/Hemoglobin.total in Blood Hemoglobin A1c Lab Routine Cerebrovascular accident (CVA), unspecified mechanism ([facility]) Hyperglycemia 1 Occurrences starting 10/24/2023 until 10/24/2024 [facility] Comment on above: 1 Occurrences starti ng 10/24/2023 until 10/24/2024 End: 10-24-2024 Lipid 1996 panel - Serum or Plasma Lipid profile Lab Routine Cerebrovascular accident (CVA), unspecified mechanism ([facility]) 1 Occurrences starting 10/24/2023 until 10/24/2024 [facility] Comment on above: 1 Occurrences starti ng 10/24/2023 until 10/24/2024 XR Lumbar spine View s W flexion and W extension XR lumbar spine 4+ views w flexion extension Imaging Routine Back pain of lumbosacral region with sciatica Ordered: 06/17/2024 [facility] Work Phone: Comment on above: Ordered: 06/17/2024 Immunizations Immunization Date Immunization Notes Care Provider Lorin palmer 07-10-2022 Pfizer COVID-19 Vac Bivalent 30 MCG/0.3ML Intramuscular Suspension Antoni Cho Work Phone: [facility] 06-15-2022 Fluzone High-Dose Quadrivalent 0.7 ML Intramuscular Suspension Prefilled Syringe Antoni P House Work Phone: [facility] 250 DO Work Phone: 06-15-2022 influenza virus vaccine, unspecified formulation Chrissie SOTELO [facility] 08-10-2021 Pfizer-BioNTech COVID-19 Vacc 30 MCG/0.3ML Intramuscular Suspension Antoni P Fleming Work Phone: [facility] 06-09-2021 SARS-CoV-2 (COVID-19 ) mRNA BNT-162b2 vasurya Flores Jr. [facility] 12-08-2020 SARS-CoV-2 (COVID-19 ) mRNA BNT-162b2 jenx Chino Flores Jr. [facility] 12-06-2020 Pfizer-BioNTech COVID-19 Vacc 30 MCG/0.3ML Intramuscular Suspension Antoni P House Work Phone: [facility] 11-14-2020 Pfizer-BioNTech COVID-19 Vacc 30 MCG/0.3ML Intramuscular Suspension Antoni P House Work Phone: [facility] 11-07-2020 SARS-CoV-2 (COVID-19 ) mRNA BNT-162b2 vax Chino Flores Jr. [facility] 09-03-2020 influenza virus vaccine, unspecified formulation Chrissie SOTELO [facility] 09-03-2020 influenza, high dose seasonal, preservative-free Antoni P Yunait Work Phone: [place] [address] DO Work Phone: 09-03-2020 pneumococcal conjuga te vaccine, 13 valent Antoni P Yunait Work Phone: [facility] 06-27-2019 influenza virus vaccine, unspecified formulation Chrissie SOTELO [facility] 06-27-2019 influenza, injectabl e, quadrivalent, preservative free Antoni P Yunait Work Phone: [place] [address] DO Work Phone: 06-27-2019 pneumococcal polysaccharide vaccine, 23 valent Antoni P Yunait Work Phone: [facility] 09-12-2014 tetanus toxoid, redu brenda diphtheria toxoid, and acellular pertussis vaccine, adsorbed Jeannie Mclean Other [employer] Other Payers Date Payer Category Payer Medicare [id number] 2022 Private Health Insurance [id number] 2014 Private Health Insurance [id number] 2005 Medicare [id number] 1959 Medicare [id number] 1959 Private Health Insurance [id number] 1940 Unknown [id number] 2.16.84 [id number] 1940 Unknown [id number] 2.16.84 [id number] 1940 Unknown [id number] 2.16.84 [id number] 1940 Unknown [id number] 2.16. [id number] 1940 Unknown [id number] 2.16. [id number] 1940 Unknown [id number] 2.16.8 [id number] 1940 Unknown [id number] 2.16.8 [id number] 1940 Unknown [id number] 2.16.8 [id number] 1940 Unknown [id number] 2.16.8 [id number] 1940 Unknown [id number] 2.16.8 [id number] 1940 Unknown [id number] 2.16.84 [id number] 1940 Unknown [id number] 2.16.84 [id number] 1940 Unknown [id number] 2.16.84 [id number] 1940 Unknown [id number] 2.16.84 [id number] 1940 Unknown [id number] 2.16.84 [id number] 1940 Unknown [id number] 2.16.840 .[id number] Unknown Social History Date Type Detail Facility Start: 01-15-2022 End: 10-01-2023 Tobacco smoking status Ex-smoker (finding) [facility] Start: 08-07-2023 End: 01-29-2024 Sex Assigned At Male [facility] Start: 06-11-2023 End: 01-29-2024 Social alcohol use Social alcohol use -[facility] DO Work Phone: Comment on above: quit 1978; End: 09-09-1978 History of tobacco use Current smoker [facility] End: 09-09-1978 History of tobacco use Cigarette Smoker [facility] Start: 06-11-2023 End: 10-01-2023 Tobacco use and exposure Smokeless tobacco non-user [facility] Start: 08-07-2023 End: 07-09-2024 Alcohol intake Current drinker of alcohol (finding) [facility] Childcare Unknown [facility] Start: 06-16-2021 Alcohol Comment 2-4 BEERS A DAY [facility] [facility] Start: 1940 Sex Assigned At Not on file P [facility] Start: 10-01-2023 Alcohol Comment socially [facility] Work Phone: Start: 12-02-2023 End: 12-12-2023 Exposure to SARS-CoV-2 (event) Not sure [facility] History of tobacco use Passive smoker [facility] Medical Equipment Procedure Code Equipment Code Equipment Origin al Text Equipment Identifier Dates [facility] [id number] Start: 07-02-2023 [facility] [id number] Start: 08-06-2023 Functional Status Date Assessment Result Facility 03-09-2024 Functional Status N/A [facility] 03-04-2023 Functional Status N/A [facility] 12-21-2022 Functional Status N/A [facility] 11-16-2022 Functional Status No [facility] 10-09-2022 Functional Status N/A [facility] Clinical Notes 11-22-2021 to 07-10-2024 Stacey Vaughn NP - 07/10/2024 8:52 AM EDTBjanine Vaughn NP - 07/09/2024 11:30 AM EDTPatient InstructionsStacey Vaughn NP - 06/17/2024 11:47 AM EDTPatient Instructions Note Date & Type Note Facility 07-10-2024 History of Present illness Narrative Associated Problem(s): Back pain of lumbosacral region with sciatica Reutrns for ongoing lumbar thoracis back pain. Was seen in office 06/17/2024. Xrays indicative of marked degenerative disc disease and moderate facet arthropathy of the Lower lumbar spine likely causing central canal and foraminal narrowing. Pt reports pain 2 at rest Stopped taking CoQ10, believes was causing all over myalgias. Reports since he stopped taking it, his myalgias are improving significantly. Denies loss of bowel or bladder. Advised on symptoms to monitor for. Has not been scheduled with PM yet. Provided patient with PM contact information. Is adamant he would like MRI of lumbar back ordered. MRI ordered. Images from the original note were not included. Subjective Patient ID: Steve De Leon is a 83 y.o. male who presents for Follow-up. HPI Reutrns for ongoing lumbar thoracis back pain. Was seen in office 06/17/2024. Is adamant he would like MRI of lumbar back ordered. Has not been scheduled with PM yet. Given cvontact infor. Reports pain 2 at rest Stopped taking CoQ10, believes was causing all over myalgias. Reports since he stopped taking it, his myalgias are improving significantly. Review of Systems Constitutional: Negative for activity change, appetite change, chills, diaphoresis, fatigue, fever and unexpected weight change. HENT: Negative for congestion, ear pain, rhinorrhea, sinus pressure, sinus pain, sneezing, sore throat, trouble swallowing and voice change. Eyes: Negative for visual disturbance. Respiratory: Negative for cough, chest tightness, shortness of breath and wheezing. Cardiovascular: Negative for chest pain, palpitations and leg swelling. Gastrointestinal: Negative for abdominal distention, abdominal pain, blood in stool, constipation, diarrhea and vomiting. Genitourinary: Negative for decreased urine volume, dysuria, flank pain, frequency, hematuria and urgency. Musculoskeletal: Positive for back pain. Negative for arthralgias, gait problem, joint swelling and myalgias. Skin: Negative for rash. Neurological: Negative for dizziness, tremors, syncope, weakness, light-headedness and headaches. Psychiatric/Behavioral: Negative for decreased concentration and suicidal ideas. The patient is not nervous/anxious. Hematological: Does not bruise/bleed easily. Endocrine: Negative for cold intolerance, heat intolerance, polydipsia, polyphagia and polyuria. Objective Physical Exam Vitals reviewed. Constitutional: Appearance: Normal appearance. HENT: Head: Normocephalic and atraumatic. Right Ear: Tympanic membrane normal. Left Ear: Tympanic membrane normal. Nose: Nose normal. Mouth/Throat: Mouth: Mucous membranes are moist. Pharynx: Oropharynx is clear. Eyes: Pupils: Pupils are equal, round, and reactive to light. Cardiovascular: Rate and Rhythm: Normal rate and regular rhythm. Pulses: Normal pulses. Heart sounds: Normal heart sounds. Pulmonary: Effort: Pulmonary effort is normal. Breath sounds: Normal breath sounds. Abdominal: General: Abdomen is flat. Bowel sounds are normal. Palpations: Abdomen is soft. Musculoskeletal: General: Normal range of motion. Cervical back: Normal range of motion. Skin: General: Skin is warm and dry. Capillary Refill: Capillary refill takes less than 2 seconds. Neurological: General: No focal deficit present. Mental Status: He is alert and oriented to person, place, and time. Psychiatric: Mood and Affect: Mood normal. Behavior: Behavior normal. Assessment/Plan Problem List Items Addressed This Visit Back pain of lumbosacral region with sciatica - Primary Reutrns for ongoing lumbar thoracis back pain. Was seen in office 06/17/2024. Xrays indicative of marked degenerative disc disease and moderate facet arthropathy of the Lower lumbar spine likely causing central canal and foraminal narrowing. Pt reports pain 2 at rest Stopped taking CoQ10, believes was causing all over myalgias. Reports since he stopped taking it, his myalgias are improving significantly. Denies loss of bowel or bladder. Advised on symptoms to monitor for. Has not been scheduled with PM yet. Provided patient with PM contact information. Is adamant he would like MRI of lumbar back ordered. MRI ordered. Relevant Orders MR lumbar spine wo contrast Other Visit Diagnoses Lumbar foraminal stenosis Relevant Orders MR lumbar spine wo contrast Degeneration of intervertebral disc of lumbar region with discogenic back pain and lower extremity pain Relevant Orders MR lumbar spine wo contrast documented in this encounter [facility] 07-09-2024 Instructions Stacey Vaughn NP - 07/09/2024 11:30 AM EDT Call Pain management to schedule appointment DR KAMARA- [facility] [place], [place] [phone] MRI ordered. Have completed. We will call you with results. documented in this encounter [facility] 06-17-2024 History of Present illness Narrative Associated Problem(s): Back pain of lumbosacral region with sciatica Reports RLE numbness/tingling in Lateral aspect of right thigh with chronic lower back pain ; Pain does not radiate to lower calf or feet Denies: recent injury or trauma Loss of bowel or bladder function Xray hip ordered. Medrol dose pack prescribed for hip and throat, Tizanidine for 14 days PRN for muscle spasms/muscle pain. Will re-assess in 4 weeks. Associated Problem(s): Sensation of lump in throat Pt reports he feels like he has a pimple in the back of his throat; Denies Difficulty swallowing Choking Shortness of breath' Wheezing Cough Coughing up blood/phlegm; No observable erythema, lesions, swollen glands. No palpable abnormalities noted on examination. Ordered medrol dose jennie and ATB course, will re-assess in 4 weeks Associated Problem(s): Hyperlipidemia (CMS/HCC) Currently taking Atorvastation 20mg Reports leg cramping nightly. Most recent Lipid Panel 7 months ago WNL. Trial CoQ10 for myalgia relief. Continue current regimen. Associated Problem(s): Gastroesophageal reflux disease Currently Taking Omeprazole every other day Feels symptoms are well controlled. Associated Problem(s): Chronic migraine without aura without status migrainosus, not intractable (CMS/HCC) Had eye surgery, believes migraines were r/t eyes. Have since subsided. Is no longer taking Topamax. Images from the original note were not included. Subjective Patient ID: Steve De Leon is a 83 y.o. male who presents for Leg Pain (Rt leg pain. Wakes him up at night /Very bad cramps in legs usually at night /Feels like there is a growth on the back of his throat for about a week ). HPI HLD: Currently taking Atorvastation 20mg Reports leg cramping nightly. Most recent Lipid Panel 7 months ago WNL. Trial CoQ10 for myalgia relief. Continue current regimen. Component Ref Range & Units 7 mo ago (10/25/23) 9 mo ago (08/30/23) 9 mo ago (08/30/23) 9 mo ago (08/30/23) TRIGLYCERIDES <=150 mg/dL 67 91 143 R 38.9 R CHOLESTEROL <=200 mg/dL 128 184 4.5 R 0.2 R HDL CHOLESTEROL 40 - 60 mg/dL 48 48 CM 9.5 R 2.9 R Comment: > or =60 mg/dl - LOW CARDIOVASCULAR RISK <40 mg/dl - HIGH CARDIOVASCULAR RISK LDL CHOLESTEROL CALCULATED mg/dL 66.6 117.8 CM 100 R 2.5 R Comment: <100 mg/dl OPTIMAL 100-129 mg/dl NEAR OR ABOVE OPTIMAL 130-159 mg/dl BORDERLINE HIGH 160-189 mg/dl HIGH >190 mg/dl VERY HIGH VLDL CHOLESTEROL mg/dL 13.4 18.2 0.4 R 0.7 R CHOL HDL RATIO 2.7 3.8 CM 11 Low R 0.01 R Comment: 3.3 - 4.4 LOW RISK 4.4 - 7.1 AVERAGE RISK 7.1 - 11.0 MODERATE RISK >11.0 HIGH RISK ALANINE AMINOTRANSFERASE 19 R ALKALINE PHOSPHATASE 43 Low R TOTAL PROTEIN 6.2 Low R ALBUMIN LEVEL 3.2 Low R ALBUMIN GLOBULIN RATIO 1.1 Resulting Agency [facility] GER[facility]: Currently Taking Omeprazole every other day Feels symptoms are well controlled. Migraines: Had eye surgery, believes migraines were r/t eyes. Have since subsided. Is no longer taking Topamax. Reports RLE numbness/tingling in Lateral aspect of right thigh Denies recent injury or trauma Lower back pain Does not radiate to lower calf or feet Loss of bowel or bladder function Complains of bilateral leg cramping; Feels like he ghas a pimple in the back of throat Denies Diffucilty swallowing Choking Shortness of breath' Wheezing Cough Coughing up blood/phlegm Review of Systems Constitutional: Negative for activity change, appetite change, chills, diaphoresis, fatigue, fever and unexpected weight change. HENT: Negative for congestion, ear pain, rhinorrhea, sinus pressure, sinus pain, sneezing, sore throat, trouble swallowing and voice change. Lump in throat Eyes: Negative for visual disturbance. Respiratory: Negative for cough, chest tightness, shortness of breath and wheezing. Cardiovascular: Negative for chest pain, palpitations and leg swelling. Gastrointestinal: Negative for abdominal distention, abdominal pain, blood in stool, constipation, diarrhea and vomiting. Genitourinary: Negative for decreased urine volume, dysuria, flank pain, frequency, hematuria and urgency. Musculoskeletal: Positive for back pain and myalgias. Negative for arthralgias, gait problem and joint swelling. Skin: Negative for rash. Neurological: Negative for dizziness, tremors, syncope, weakness, light-headedness and headaches. Psychiatric/Behavioral: Negative for decreased concentration and suicidal ideas. The patient is not nervous/anxious. Hematological: Does not bruise/bleed easily. Endocrine: Negative for cold intolerance, heat intolerance, polydipsia, polyphagia and polyuria. Objective Physical Exam Vitals reviewed. Constitutional: Appearance: Normal appearance. HENT: Head: Normocephalic and atraumatic. Right Ear: Tympanic membrane normal. Left Ear: Tympanic membrane normal. Nose: Nose normal. Mouth/Throat: Mouth: Mucous membranes are moist. Pharynx: Oropharynx is clear. Eyes: Pupils: Pupils are equal, round, and reactive to light. Cardiovascular: Rate and Rhythm: Normal rate and regular rhythm. Pulses: Normal pulses. Heart sounds: Normal heart sounds. Pulmonary: Effort: Pulmonary effort is normal. Breath sounds: Normal breath sounds. Abdominal: General: Abdomen is flat. Bowel sounds are normal. Palpations: Abdomen is soft. Musculoskeletal: General: Normal range of motion. Cervical back: Normal range of motion. Skin: General: Skin is warm and dry. Capillary Refill: Capillary refill takes less than 2 seconds. Neurological: General: No focal deficit present. Mental Status: He is alert and oriented to person, place, and time. Psychiatric: Mood and Affect: Mood normal. Behavior: Behavior normal. Assessment/Plan Problem List Items Addressed This Visit Gastroesophageal reflux disease Currently Taking Omeprazole every other day Feels symptoms are well controlled. Hyperlipidemia (CMS/HCC) - Primary Currently taking Atorvastation 20mg Reports leg cramping nightly. Most recent Lipid Panel 7 months ago WNL. Trial CoQ10 for myalgia relief. Continue current regimen. Chronic migraine without aura without status migrainosus, not intractable (CMS/HCC) Had eye surgery, believes migraines were r/t eyes. Have since subsided. Is no longer taking Topamax. Leg cramping Relevant Medications coenzyme Q-10 100 MG capsule Back pain of lumbosacral region with sciatica Reports RLE numbness/tingling in Lateral aspect of right thigh with chronic lower back pain ; Pain does not radiate to lower calf or feet Denies: recent injury or trauma Loss of bowel or bladder function Xray hip ordered. Medrol dose pack prescribed for hip and throat, Tizanidine for 14 days PRN for muscle spasms/muscle pain. Will re-assess in 4 weeks. Relevant Medications tiZANidine (Zanaflex) 2 MG capsule Other Relevant Orders XR lumbar spine 4+ views w flexion extension Sensation of lump in throat Pt reports he feels like he has a pimple in the back of his throat; Denies Difficulty swallowing Choking Shortness of breath' Wheezing Cough Coughing up blood/phlegm; No observable erythema, lesions, swollen glands. No palpable abnormalities noted on examination. Ordered medrol dose jennie and ATB course, will re-assess in 4 weeks Relevant Medications methylPREDNISolone (Medrol Dospak) 4 MG tablets amoxicillin-clavulanate (Augmentin) 875-125 MG tablet Throat irritation Relevant Medications amoxicillin-clavulanate (Augmentin) 875-125 MG tablet documented in this encounter [facility] 06-17-2024 Instructions Stacey Vaughn NP - 06/17/2024 9:30 AM EDT Have Xray completed of lumbar spine. Take all medications as directed. Call if you need anything! If you develop sudden loss of bowel/bladder function, numbness, loss of strength or severe pain, GO TO ER! documented in this encounter [facility] 03-09-2024 Hospital Discharge instructions Patient Education 03/09/2024 [...] urethra. Follow these instructions at home: Take oxwc-ohv-ldixfwt and prescription medicines only as told by [...] provider. Document Revised: 03/14/2022 Document Reviewed: 03/14/2022 [employer] Patient Education 2022 RESAAS. Follow Up Care 03/04/2023 09:33:42 With:ASHLEIGH POTTS, Chrissie Bradley, URL Address: [facility] [employer] [place] [id number]- When: Unknown [facility] 03-09-2024 Note Patient Education Urology Benign Prostatic [...] Follow these instructions at home: ? Take odaa-pgb-bnsqfqy and prescription medicines only as told by [...] develop side effec (more content not included)... [facility] 12-12-2023 History of Present illness Narrative Subjective [...] Attestation By signing my name below, I, Serena Suggs LPN attest that this documentation has [...] discussion and plan. documented in this encounter [facility] Work Phone: 12-12-2023 Instructions Aminata Dickerson [...] as needed only documented in this encounter [facility] Work Phone: 10-24-2023 Miscellaneous Notes would like to follow up 2 months in [place]. Please schedule 1st attempt: [employer] Hand[employer] Crew Supervisor contacted patient and informed them that we have received a request to be seen in our clinic for a follow up appointment. Patient stated that they will contact our clinic later to schedule documented in this encounter [facility] 10-24-2023 Telephone encounter Note would like to follow up 2 months in [place]. Please schedule [facility] 10-24-2023 Telephone encounter Note 1st attempt: [employer] Handling Crew Supervisor contacted patient and informed them that we have received a request to be seen in our clinic for a follow up appointment. Patient stated that they will contact our clinic later to schedule [facility] 10-24-2023 History of Present illness Narrative Reason [...] TBI, seizures, learning disability. He has tried ggvz-cvf-xblevdh Tylenol, which she is currently taking on [...] 08/06/2023 Performed by Sherice Flores MD at [facility] EXTRACTION CATARACT INTRAOCULAR LENS Right 07/02/2023 Performed by Sherice Flores MD at [facility] LIPOMA RESECTION 1954 LIPOMA RESECTION 11/2022 [...] Known Allergies Last Neuro Imaging: Refer to [facility] Objective: BP 126/70 (BP Site: Left Arm, [...] Active Problem List Diagnosis Cerebrovascular accident (CVA) ([facility]) BRITTANY on CPAP Chronic tension-type headache, not intractable Cataract of right eye Status post, left superior frontal ischemic infarction, 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 Appears to be a coincidental finding, asymptomatic. Patient seems to have had a right-sided cataract surgery about 3-4 months ago, the afterwards he has been having ibfu-rd-cwztgcea severity tension-type headaches around the right temporal/frontal [...] Supportive care. Regular follow-up with PCP and cancer program consultant Call 911 if symptoms of TIA/Stroke occur. Follow up with me in 3 months. Larissa Bach MD Vascular Neurologist [facility] ([facility]) I have personally participated in the care of this patient. I have reviewed all pertinent clinical information, including history, physical exam, investigation results and plan. I spent 45 minutes caring for this patient, and more than 50% of that time was spent on counseling the patient/warm in/care team and coordinating care. Important Notice: This note was created with the assistance of a speech recognition program. While intending to generate a timely document that accurately reflects the content of the encounter, no guarantee can be provided that every grammatical or spelling mistake has been or will be identified or corrected. Thank you for your understanding. documented in this encounter [facility] 10-09-2023 Miscellaneous Notes Recieved a referral for our Stroke Clinic Referral is uploaded into the Media folder in the patients chart. Dx: ISCHEMIC STROKE OF FRONTAL LOBE Referred by: SHAIKH LUIS ALBERTO MD Images from the original note were not included. Patient had MRI brain [facility] that showed CVA. Headache x 3-4mos. Schedule new patient with Dr. Bach. Patient referred to [facility] however extended wait time. Will have him be seen in [place] initially and if follow up needed, can have patient seen in [place] then. Alayna, can you have imaging sent over from [place] please Faxed a request to push over both images and reports. Currently waiting for response. Spoke with patient and made the appt documented in this encounter [facility] 10-09-2023 Telephone encounter Note Recieved a referral for our Stroke Clinic Referral is uploaded into the Media folder in the patients chart. Dx: ISCHEMIC STROKE OF FRONTAL LOBE Referred by: SHAIKH LUIS ALBERTO MD [facility] 10-09-2023 Telephone encounter Note Images from the original note were not included. Patient had MRI brain at [facility] that showed CVA. Headache x 3-4mos. Schedule new patient with Dr. Bach. Patient referred to [facility] however extended wait time. Will have him be seen in boss/tele initially and if follow up needed, can have patient seen in [place] then. Alayna, can you have imaging sent over from [place] please [facility] 10-09-2023 Telephone encounter Note Faxed a request to push over both images and reports. Currently waiting for response. [facility] 10-09-2023 Telephone encounter Note Spoke with patient and made the appt [facility] [employer] [facility] 09-08-2023 Evaluation note Encounter Date Diagnosis [...] treatment plan. Patient left in stable condition [employer] Other 2023 Evaluation note* Encounter Date Diagnosis Assessment Notes Treatment Notes Treatment Clinical Notes Aug, Diarrhea (ICD-10 - R19.7) Patient reports that he has had some improvement and will continue Levsin as directed, fiber, and probiotic without change RTO 3 months [facility] 10-31-2023 Evaluation note* Encounter Date Diagnosis Assessment Notes Treatment Notes Treatment Clinical Notes Jun, Diarrhea (ICD-10 - R19.7) This patient states his diarrhea started about 4 months ago. At it's worst, he was only going once, but he had urgency & was a large amount. The frequency & severity have improved somewhat. He reported to [facility] ER last month. Lab & [...] colonoscopy. Return visit here in one month [employer] [facility] 10-01-2023 History general Narrative - Reported* Type Description Date Medical History Hypercholesteremia Surgical History tonsillectomy and adenoidectomy Surgical History lipoma Surgical History colonoscopy Surgical History cataract removal 06/2023 Hospitalization History see above Hospitalization History [facility] for diarrhea 05/2023 [employer] [facility] 10-01-2023 History general Narrative - Reported* Type Description Date Medical History Hypercholesteremia Medical History diarrhea Surgical History tonsillectomy and adenoidectomy Surgical History lipoma Surgical History colonoscopy Surgical History cataract removal 06/2023 Hospitalization History see above Hospitalization History [facility] [facility] for diarrhea 05/2023 [facility] Other 06-26-2023 Hospital Discharge instructions Patient Education [...] Follow these instructions at home: Medicines Take jubz-rzc-nermtkn and prescription medicines only as told by [...] or the blood stops without treatment. Take nzfh-yfm-fqjnhdr and prescription medicines only as told by your health care provider. Drink enough fluid to keep your urine pale yellow. This information is not intended to replace advice given to you by your health care provider. Make sure you discuss any questions you have with your health care provider. Document Revised: 04/26/2021 Document Reviewed: 04/26/2021 [employer] Patient Education 2022 RESAAS. Follow Up Care 12/21/2022 09:24:19 With:ASHLEIGH POTTS, Chrissie Bradley, URL Address: [address] [id number]- When:Within 1 Year(s) [facility] [id number] Hospital Discharge instructions Patient Education 12/21/2022 09:11:46 [...] Follow these instructions at home: Medicines Take wmih-fmh-xdajfjq and prescription medicines only as told by [...] or the blood stops without treatment. Take jeox-iws-bszuwee and prescription medicines only as told by your health care provider. Drink enough fluid to keep your urine clear or pale yellow. This information is not intended to replace advice given to you by your health care provider. Make sure you discuss any questions you have with your health care provider. Document Released: 08/26/2006 Document Revised: 01/20/2020 Document Reviewed: 09/28/2017 [employer] Patient Education 2019 RESAAS. Follow Up Care 11/29/2022 14:24:46 With:ASHLEIGH POTTS, Chrissie Bradley, URL Address: [address] [facility] [address] [place] [phone]- When:02/20/2023 [facility] [id number] Evaluation note* Encounter Date Diagnosis Assessment Notes [...] understanding and is agreeable with treatment plan. [employer] Other [id number] Evaluation + Plan noteExtracted from: Title:CSB post op Author:Meek Combs MD Date:11/29/22 Plan Transfer/Discharge: Transfer/Discharge Discharge when meets criteria ( From PACU to Ambulatory Surgery Unit, and To home ). Extracted from: Title:CSB GA Author:Meek Combs MD Date:11/29/22 Plan [place] [employer] Anesthesiologists (ASA) physical status classification: Class II. Anesthetic Preoperative Plan: Anesthesia General. Future Appointments Appointment Date:12/21/2022 09:00:00 AM Scheduled Provider:Chrissie SOTELO MD Location:[facility] Appointment Type:URO Office Visit [facility]03-23-2023 Hospital Discharge instructions Patient Education 11/29/2022 10:49:22 Post Op Patient Instructions - FT (Custom) (Custom) Follow Up Care 10/30/2022 08:14:31 With:CHACHA MULLINS Address: [address] [place] [phone] Business (1) When: Unknown Comments:Call for followup appointment with Mindi Mullins PA-C or within the next 2-3 weeks. Should you haveproblems prior to that visit, please let us know.No shower for two days. Keep scrotal support and ice intermittently for discomfort.Have a great day! [facility]01-31-2023 Hospital Discharge instructions Patient Education 10/09/2022 16:09:17 [...] urethra. Follow these instructions at home: Take oenc-dbw-nsffccd and prescription medicines only as told by [...] 08/26/2006 Document Revised: 07/21/2019 Document Reviewed: 09/30/2017 [employer] Patient Education 2020 RESAAS. Follow Up Care 10/05/2022 09:45:41 With:ASHLEIGH POTTS, Chrissie Bradley, URL Address: [facility] [employer] [facility] [address] [place], [place] [phone]- When: Unknown [facility] [id number] Hospital Discharge instructions Patient Education 01/15/2022 14:02:51 [...] Follow these instructions at home: Medicines Take gpkm-nvo-sbxvmve and prescription medicines only as told by [...] or the blood stops without treatment. Take smfi-pej-ttknerz and prescription medicines only as told by your health care provider. Drink enough fluid to keep your urine clear or pale yellow. This information is not intended to replace advice given to you by your health care provider. Make sure you discuss any questions you have with your health care provider. Document Released: 08/26/2006 Document Revised: 01/20/2020 Document Reviewed: 09/28/2017 [employer] Patient Education 2020 RESAAS. Follow Up Care 01/03/2022 11:13:58 With:Chino Flores Jr., MD, URO Address: [facility] [address], [facility] [place] [address]- When:01/15/2023 [facility] [id number] NotePROCEDURE: XR SHOULDER LT 2V or > COMPARISON: None. HISTORY: Pain of left shoulder joint FINDINGS: BONES:No acute fracture or dislocation. Moderate acromioclavicular and glenohumeral joint osteoarthropathy with joint space narrowing marginal osteophyte formation. Subchondral cystic change of the glenoid. SOFT TISSUES:Negative. No visible soft tissue swelling. EFFUSION:None visible. OTHER: Negative. IMPRESSION: Moderate osteoarthritis Electronically authenticated by: AQUILES SPAIN Date: 2021-11-22 11:29[facility] Future Appointments Appointment Date:01/21/2023 10:30:00 AM Scheduled Provider:Chino Flores Jr., MD Location:[facility] Appointment Type:URO Office Visit Diagnostic Tests Pending * Urine Cytology ([facility]) 01/15/22 [facility] Evaluation + Plan note Future Appointments Appointment Date:01/21/2023 10:30:00 AM Scheduled Provider:Chino Flores Jr., MD Location:[facility] Appointment Type:URO Office Visit [facility] Evaluation + Plan note Future Appointments Appointment Date:11/29/2022 10:00:00 AM Scheduled Provider: Location:[facility] Appointment Type:Surgery FT Appointment Date:01/21/2023 10:30:00 AM Scheduled Provider:Chino Flores Jr., MD Location:[facility] App[facility]ments Appointment Date:03/04/2023 08:30:00 AM Scheduled Provider:Chrissie SOTELO MD Location[facility] Appointment Type:URO Office Visit [facility] Evaluation + Plan note Future Appointments Appointment Date:03/09/2024 08:00:00 AM Scheduled Provider:Chrissie SOTELO MD Location:[facility] Appointment Type:URO Office Visit [facility] Evaluation note* Diagnosis Cerebrovascular accident (CVA), unspecified mechanism ([facility])- Primary BRITTANY on CPAP Chronic tension-type headache, [...] hazards to health documented in this encounter [facility] Work Phone: Evaluation note* Diagnosis Mixed hyperlipidemia (CMS/HCC)- Primary Mixed hyperlipidemia Gastroesophageal reflux disease without esophagitis Esophageal reflux Chronic migraine without aura without status migrainosus, not intractable (CMS/HCC) Leg cramping Back pain of lumbosacral region with sciatica Sensation of lump in throat Swelling, mass, or lump in head and neck Throat irritation documented in this encounter [facility] HealthcareEvaluation note* Diagnosis Chronic diarrhea of unknown origin- Primary Diarrhea Gastroesophageal reflux disease without esophagitis Esophageal reflux Hyperlipidemia, unspecified hyperlipidemia type (CMS/HCC) Encounter for Medicare annual wellness exam 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)- Primary New daily persistent headache Chronic diarrhea of unknown origin Diarrhea 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 Chronic migraine without aura without status migrainosus, not intractable (CMS/HCC) H/O: CVA (cerebrovascular accident) Hyperlipidemia, unspecified hyperlipidemia type (CMS/HCC) Hyperlipidemia, unspecified hyperlipidemia type ([facility])- Primary 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) Chronic migraine without aura without status migrainosus, not intractable (CMS/HCC) Chronic migraine without aura without status migrainosus, not intractable (CMS/HCC)- Primary Hyperlipidemia, unspecified hyperlipidemia type ([facility]) Ischemic stroke of frontal lobe ([facility]) Gastroesophageal reflux disease without esophagitis Esophageal reflux 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 persistent headache Mixed hyperlipidemia ([facility])- Primary Mixed hyperlipidemia Gastroesophageal reflux disease without esophagitis Esophageal reflux Chronic migraine without aura without status migrainosus, not intractable (CMS/HCC) Leg cramping Back pain of lumbosacral region with sciatica Sensation of lump in throat Swelling, mass, or lump in head and neck Throat irritation Degeneration of intervertebral disc of lumbar region with discogenic back pain and lower extremity pain- Primary Central spinal stenosis Spinal stenosis, unspecified region other than cervical Foraminal stenosis of lumbar region documented in this encounter [facility] HealthcareEvaluation note* Diagnosis Chronic diarrhea of unknown origin- Primary Diarrhea Gastroesophageal reflux disease without esophagitis Esophageal reflux Hyperlipidemia, unspecified hyperlipidemia type ([facility]) Encounter for Medicare annual wellness exam 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)- Primary New daily persistent headache Chronic diarrhea of unknown origin Diarrhea Ischemic stroke of frontal lobe ([facility])- Primary 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 persistent headache Chronic migraine without aura without status migrainosus, not intractable ([facility]) H/O: CVA (cerebrovascular accident) Hyperlipidemia, unspecified hyperlipidemia type ([facility]) Hyperlipidemia, unspecified hyperlipidemia type ([facility])- Primary 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 persistent headache Ischemic stroke of frontal lobe ([facility]) Chronic migraine without aura without status migrainosus, not intractable ([facility]) Chronic migraine without aura without status migrainosus, not intractable ([facility])- Primary Hyperlipidemia, unspecified hyperlipidemia type ([facility]) Ischemic stroke of frontal lobe ([facility]) Gastroesophageal reflux disease without esophagitis Esophageal reflux 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 persistent headache Mixed hyperlipidemia ([facility])- Primary Mixed hyperlipidemia Gastroesophageal reflux disease without esophagitis Esophageal reflux Chronic migraine without aura without status migrainosus, not intractable (CMS/HCC) Leg cramping Back pain of lumbosacral region with sciatica Sensation of lump in throat Swelling, mass, or lump in head and neck Throat irritation Back pain of lumbosacral region with sciatica- Primary Lumbar foraminal stenosis Degeneration of intervertebral disc of lumbar region with discogenic back pain and lower extremity pain documented in this encounter [facility] Narrative - Reported* Type Description Date Medical History Hypercholesteremia Surgical History tonsillectomy and adenoidectomy Surgical History lipoma Surgical History colonoscopy Hospitalization History see above [facility] Other Hospital course Narrative No data available for this section [facility] Hospital Discharge instructions No data available for this section [facility] filed[facility] this [facility] this [facility]Not [facility] filedocumented in this encounter [facility] No data available for this section [facility] Summary Purpose Family History No Family History [...] years the last of which was in [place] 2 and half years ago which was [...] I will retrieve the stress test from [place]. Patient is considered low risk for the [...] Contact Diagnoses Cerebrovascular accident (CVA), unspecified mechanism (CMS-HCC) Cerebrovascular accident within last 3 months Procedures Echo complete W/O contrast Larissa Bach MD [address] [place] [address], [address] [place] [address] [facility] [address] [place] [address] Phone: [phone] Referral ID Status Reason Start Date Expiration Date V isits Requested Visits Authorized [id number] Pending Review 10/24/2023 10/23/2024 1 1 Specialty Diagnoses / Procedures Referred By Tamica mendieta Referred To Contact Radiology Diagnoses Cerebrovascular accident (CVA), unspecified mechanism (CMS-HCC) Procedures CT angiogram carotid Larissa Bach MD [address] [place] [address], [address] [place] [address] [facility] [address] [place] [address] Phone: [phone] Referral ID Status Reason Start Date Expiration Date V isits Requested Visits Authorized [id number] Pending Review 10/24/2023 10/23/2024 1 1 Specialty Diagnoses / Procedures Referred By Contac t Referred To Contact Radiology Diagnoses Cerebrovascular accident (CVA), unspecified mechanism ([facility]) Procedures CT angiogram head Larissa Bach MD [address] [place] [address], [address] [address] [facility] [address] [place] [address] Phone: [phone] Referral ID Status Reason Start Date Expiration Date V isits Requested Visits Authorized [id number] Pending Review 10/24/2023 10/23/2024 1 1 Additional Source Comments Patient Care team informatio n (unrecognized section and content) Land Appraiser Relationship Specialty Start Date End Date Shaikh Poole MD [address] [place] [address] PCP - General Internal Medicine 07/02/23 Land Appraiser Relationship Specialty Start Date End Date Shaikh Poole MD [address] [place] [address] PCP - General Internal Medicine 07/02/23 Land Appraiser Relationship Specialty Start Date End Date Shaikh Poole MD [address] [place] [address] PCP - General Internal Medicine 07/02/23 Land Appraiser Relationship Specialty Start Date End Date Shaikh Poole MD [address] [place] [address] PCP - General Internal Medicine 11/05/23 Land Appraiser Relationship Specialty Start Date End Date Stevenson Eckert MD [address] [place] [address] PCP - General Family Medicine 05/19/24 Stacey Vaughn NP [address] [place] [address] Nurse Practitioner Family Medicine 05/19/24 Land Appraiser Relationship Specialty Start Date End Date Stevenson Eckert MD [address] [place] [address] PCP - General Family Medicine 05/19/24 Stacey Vaughn NP [address] [place] [address] Nurse Practitioner Family Medicine 05/19/24 Land Appraiser Relationship Specialty Start Date End Date Stevenson Eckert MD [address] [place] [address] PCP - General Family Medicine 05/19/24 Stacey Vaughn NP [address] [place] [address] Nurse Practitioner Family Medicine 05/19/24 Land Appraiser Relationship Specialty Start Date End Date Stevenson Eckert MD [address] [place] [address] PCP - General Family Medicine 05/19/24 Stacey Vaughn NP [address] [place] [address] Nurse Practitioner Family Medicine 05/19/24 Land Appraiser Relationship Specialty Start Date End Date Stevenson Eckert MD [address] [place] [phone] PCP - General Family Medicine 05/19/24 Stacey Vaughn NP [address] [place] [place] [address] Nurse Practitioner Family Medicine 05/19/24 (unrecognized sect ion and content) No Status Records FoundNo Status Records FoundNo Status Records FoundNo Status Records FoundNo Status Records FoundNo Status Records FoundNo Status Records Found INFORMATION SOURCE (unrecogn ized section and content) DATE CREATED AUTHOR 10/18/2022 [facility] [place] [facility] DATE CREATED AUTHOR AUTHOR'S ORGANIZ ATION 11/22/2022 [employer] DATE CREATED AUTHOR AUTHOR'S ORGANIZ ATION 12/16/2022 [facility] DATE CREATED AUTHOR AUTHOR'S ORGANIZ ATION 10/26/2023 [facility] DATE CREATED AUTHOR AUTHOR'S ORGANIZ ATION 11/29/2023 [facility] DATE CREATED AUTHOR AUTHOR'S ORGANIZ ATION 03/11/2024 [facility] DATE CREATED AUTHOR AUTHOR'S ORGANIZ ATION 07/11/2024 [facility] EPIC REASON FOR VISIT (unrecogniz ed section and content) Reason Onset Date Comments STROKE REFERRAL 10/09/2023 Reason Onset Date Comments Follow up 10/24/2023 Reason Comments Annual Exam ANDREY results Reason Comments Leg Pain Rt leg pain. Wakes h im up at night Very bad cramps in legs usually at night Feels like there is a growth on the back of his throat for about a week Reason Comments Follow-up FOR RECORDS PERTAINING TO PATIENTS WHO ARE [...] BE BASED ON THE PRIMARY CLINICAL RECORDS. [facility]. provides no warranty or guarantee of the accuracy or completeness of information in this document.
--- NOTE | 2024-07-14 08:33 | MR_ITS ---
[address] [address] Patient Name: ALICIA DE LEON MRN: [id number] date: 1940 Sex: M Assigned Patient Location: MRI Current Patient Location: MRI Accession/Order Number: [id number] Exam Date: 07/14/2024 08:44 Report Date: 07/14/2024 09:59 At the request of: STACEY STERN Procedure: MR lumbar spine wo con EXAMINATION: MR lumbar spine wo con HISTORY: Back Pain Of Lumbosacral Region, Lumbar Foraminal Stenosis COMPARISON: No relevant comparison available. TECHNIQUE: A variety of imaging planes and parameters were utilized for visualization of suspected pathology. FINDINGS: For the purposes of numbering, sagittal T2 image # 9 extends from the T11 vertebral body superiorly to the S4 level inferiorly. PARASPINAL AREA: Normal with no visible mass. BONES: Normal alignment with no acute fracture or spondylolisthesis. No bone edema CORD/CAUDA EQUINA: Normal caliber, contour, and signal intensity. CERVICAL DISC LEVELS: 12-L1: No significant disc/facet abnormality, spinal stenosis, or foraminal stenosis. L1-L2: No significant disc/facet abnormality, spinal stenosis, or foraminal stenosis. L2-L3: No significant disc/facet abnormality, spinal stenosis, or foraminal stenosis. L3-L4: Early degenerative disc disease is present without focal protrusion or neural impingement. L4-L5: Disc collapse with endplate sclerosis. Moderate diffuse disc/osteophyte complex and facet osteoarthropathy. No central canal stenosis. Mild bilateral foraminal stenosis, left greater than right L5-S1: Disc collapse with endplate sclerosis, left greater than right. Mild diffuse disc/osteophyte complex and facet osteoarthropathy. No central canal stenosis. No right, moderate left foraminal stenosis MR/MR lumbar spine wo con IMPRESSION: Degenerative changes L4-S1 with foraminal stenosis detailed above Electronically authenticated by: AQUILES SPAIN Date: 07/14/2024 09:59
== END 2024-07-14 08:29 | disposition home or self-care (01) ==
LOC: MRI 08:28
DX: M54.40 Lumbago with sciatica, unspecified side (principal); M48.061 Spinal stenosis, lumbar region without neurogenic claudication; M51.369 Other intervertebral disc degeneration, lumbar region without mention of lumbar back pain or lower extremity pain
CPT/HCPCS: 72148

== ENCOUNTER 2024-07-20 10:12 | Day surgery (SDC) | payer MEDICARE, OTHER, SELFPAY ==
[2024-07-20 10:49] VITALS: BP 130/74; PULSE 71; TEMP 36.1; O2SAT 97
[2024-07-20 11:32] VITALS: BP 134/64; BP 140/55; PULSE 70; PULSE 77; O2SAT 98; O2SAT 99
--- NOTE | 2024-07-20 11:35 | P.ON_ITS ---
Date of procedure: 07/20/24 Pre-op diagnosis: Pain due to lumbar stenosis with neurogenic claudication Post-op diagnosis: same as pre-op Procedure: Procedure: Right L3-4, L4-5 transforaminal epidural steroid injection Medications: Bupivacaine 0.25% 2cc, lidocaine 2% 1cc, dexamethasone 10mg The patient was seen and examined in the preoperative holding area.? Informed consent was obtained and placed on the chart.? Patient was brought to the medical procedure unit and placed in the prone position where a timeout was completed verifying the correct patient, procedure site, position, and planned special equipment using sterile aseptic technique.? Under direct fluoroscopic visualization a 25-gauge Quincke tipped spinal needle was advanced to the designated neural foramen where contrast dye was injected to show adequate spread.? The needle was inserted at level right L3-4. There was no evidence of vascular or adverse uptake.? Epidural spread was appreciated.? The above- mentioned injectate was then placed in a 1.5 mL aliquot preceded by negative aspiration.? The needle was removed. The needle was inserted and the procedure repeated at level right L4-5.? The surgery site was covered.? Patient was taken to the postprocedural recovery area and monitored for an appropriate length of time before found suitable for discharge in the accompaniment of a responsible adult. Anesthesia: Local Surgeon: Jaems Vyas Pathology: none sent Condition: stable Disposition: no change
[2024-07-20] MEDS: BUPIVACAINE HCL 0.25% PF 25 MG/10 ML VIAL INJ (11:36)
[2024-07-20] MEDS: IOHEXOL 240 MG/ML - 10 ML VIAL 24 MG INJ (11:36)
[2024-07-20] MEDS: DEXAMETHASONE SOD PHOS 10 MG/ML VIAL INJ (11:36)
[2024-07-20] MEDS: 0.9 % SODIUM CHLORIDE 10 ML SYRINGE - SALINE FLUSH INJ (11:36)
[2024-07-20] MEDS: LIDOCAINE HCL 2% 400 MG/20 ML MDV 5 ML INJ (11:37)
== END 2024-07-20 11:39 | disposition home or self-care (01) ==
PROVIDERS: Visit Provider Anesthesiology
DX: M48.062 Spinal stenosis, lumbar region with neurogenic claudication (principal)
CPT/HCPCS: 64483; 64484; J0665; J1100; Q9966

== ENCOUNTER 2024-07-29 11:26 | Outpatient (OUT) | payer MEDICARE, OTHER, SELFPAY ==
--- NOTE | 2024-07-29 11:56 | P.CN_ITS ---
Consult Note: HPI Data of Consult Patient: new to practice Consult date: 07/13/24 Requesting Physician: Alva Etienne NP Primary Care Provider: STACEY STERN Consult Narrative Reason for consult: low back, right leg pain Narrative: 83yom who presents for evaluation. longstanding low back history, pain recently getting worse into right leg. lumbar imaging consistent with multilevel severe spondylosis and stenosis. has engaged in a series of provider directed home exercises >6 weeks, without lasting benefit. uses otc pain meds as needed. denies adverse med side effects. recent right L3-4 L4-5 TFESI providing 70% improvement ongoing. continues to have moderate to severe right low back/sij pain. cc:: CC: Alva Etienne NP Review of Systems ROS Status of ROS 10 or more systems reviewed and unremark able except as noted in history and below Musculoskeletal Reports: back pain and joint pain PFSH PFSH Medical History CVA (cerebral vascular accident) ?I63.9 - Cerebral infarction, unspecified (ICD-10) Enlarged prostate ?N40.0 - Benign prostatic hyperplasia without lower urinary tract symptoms (ICD-10) High cholesterol ?E78.00 - Pure hypercholesterolemia, unspecified (ICD-10) Surgical History History of cataract extraction ?Z98.49 - Cataract extraction status, unspecified eye (ICD-10) S/P excision of lipoma ?Z98.890 - Other specified postprocedural states (ICD-10) ?Z86.018 - Personal history of other benign neoplasm (ICD-10) Social History Smoking status: Never smoker Meds Home Medications and Allergies Home Medications ?Medication ?Instructions ?Recorded ?Confirmed ?Type dicyclomine 20 mg tablet 20 mg PO TID PRN abdominal pain #7 05/20/23 07/20/24 Rx tabs aspirin 81 mg capsule 81 mg PO DAILY 07/13/24 07/20/24 History atorvastatin 20 mg tablet 20 mg PO DAILY 07/13/24 07/20/24 History naproxen 250 mg tablet 250 mg PO BID PRN pain 07/13/24 07/20/24 History omeprazole 20 mg capsule,delayed 20 mg PO DAILY 07/13/24 07/20/24 History release Allergies Allergy/AdvReac Type Severity Reaction Status Date / Time No Known Drug Allergies Allergy Verified 07/20/24 10:51 Exam Narrative Exam Narrative: Psych-alert and oriented x 3. Attentive and appropriate, constitutionally normal, displays normal mood and affect per situation. There are no obvious deficits in memory, reasoning, or intellect.? Skin-no obvious rashes, bruising, erythema noted to the patient's area of pain.? Extremities- extremities are warm with minimal edema and palpable pulses. Lumbar-tenderness to palpation noted in the lumbar spine and paraspinal muscul ature. Pain is elicited with flexion, extension, and lateral rotation of the lumbar spine. Range of motion is diminished with these motions. Facet loading maneuvers are positive.? right sij positive marcia(patricks), gaenslens, thigh thrust, compression test Strength-noted to be unremarkable Sensory-no notable sensory deficits in the bilateral lower extremities to touch or pinprick in all dermatomal distributions Coordination remains intact.? Gait remains non-antalgic. Assessment and Plan Assessment and Plan (1) Sacroiliac joint dysfunction: (2) Lumbar stenosis with neurogenic claudication: (3) Lumbar spondylosis: Plan right SIJ injection under fluoroscopy continue HEP as tolerated continue current medications f/u after injection
== END 2024-07-29 11:27 | disposition home or self-care (01) ==
LOC: PM 11:26
PROVIDERS: Visit Provider Nurse Practitioner
DX: M53.3 Sacrococcygeal disorders, not elsewhere classified (principal); M48.062 Spinal stenosis, lumbar region with neurogenic claudication; M47.816 Spondylosis without myelopathy or radiculopathy, lumbar region
CPT/HCPCS: G0463

== ENCOUNTER 2024-08-03 10:09 | Day surgery (SDC) | payer MEDICARE, OTHER, SELFPAY ==
--- OUTSIDE RECORDS SUMMARY | 2024-08-03 10:31 | XMS_ITS | CCD ---
Author Organization [facility] Care Team Providers Care Narcotics And/Or Vice Detective Name Role Phone Antoni Cho Primary Care Physician ASHLEIGH, DR CHRISSIE Bradley Admitting Unavailable ASHLEIGH, DR CHRISSIE Bradley Attending Unavailable TAMMIE, DR CARRILLO Primary Care Unavailable HORTON, DR CHRISSIE Bradley Consulting Unavailable NEFCY, JERMAIN Consulting Unavailable [place], DR CARRILLO Admitting Unavailable [place], DR CARRILLO Attending Unavailable [place], DR CARRILLO Primary Care Unavailable SPARTANBURG, DR AQUILES Lee Consulting Unavailable [place], DR CARRILLO Consulting Unavailable [place], DR CARRILLO Admitting Unavailable [place], DR CARRILLO Attending Unavailable [place], DR CARRILLO Primary Care Unavailable [place], DR CARRILLO Consulting Unavailable NARDINI, KINA Consulting Unavailable Antoni Cho Unavailable Unavailable Unavailable Tammie, Dr. Antoni Howell [...] Unavailable Shaikh Poole MD Primary Care Provider [phone] ANTONI CHO Primary Care Physician Chrissie STILES Attending Unavailable Stevenson Eckert MD Primary Care Provider Johana TEST FIXTURE ASSEMBLER, Stacey Unavailable SHAIKH POOLE Attending Unavailable SHAIKH POOLE Attending Unavailable SHAIKH POOLE Attending Unavailable SHAIKH POOLE Attending Unavailable STACEY VAUGHN Attending Jethro e STACEY VAUGHN Attending Jethro Vyas MD, James Gonsalez Attending Unavailable Asael POTTS, James Gonsalez Attending Unavailable Allergies Allergy Classification Reported Allergen(s) Allergy Type Date of Onset Reaction(s) Facility (1 source) No Known Medication Allergies; Translations: [No Known Medication Allergies] Propensity to adverse reactions (disorder) [facility] Repository Medications Current Medications Medication Drug Class(es) Dates Sig (Normalized) Sig (Original) acetaminophen 325 mg / HYDROcodone bitartrate 5 mg oral tablet (1 source) Opioid Agonist Start: 11-29-2022 End: 12-01-2022 acetaminophen-hyd rocodone 325 mg-5 mg oral tablet 1 tab(s), Oral, q4hr Pain for 2 day(s), 7 tab(s), Refill(s) 0, [id number], 170, cm, 11/16/22 11:51:00 EST, Height/Length Dosing, 85, kg, 11/16/22 11:51:00 EST, Weight Dosing Start Date: 11/29/22 Stop Date: 12/01/22 Status: Ordered [id number] 200 actuat albuterol 0.09 mg/actuat metered dose [...] 0 Active atorvastatin 20 mg oral tablet (12 sources) HMG-CoA Reductase Inhibitor Start: 01-29-2024 End: 01-10-2025 take 1 tablet by mouth once daily atorvastatin (Lipitor) 20 MG tablet Indications: Ischemic stroke of frontal lobe (CMS/HCC) Take 1 tablet (20 mg) by mouth Daily 90 tablet 1 07/14/2024 01/10/2025 Active Start: 10-08-2023 End: 01-06-2024 take 1 [...] day(s), # 10 cap(s), Refills(s) 0, [id number], 170, cm, 11/16/22 11:51:00 EST, Height/Length Dosing, [...] # 2 tab(s), Refills(s) 0, Pharmacy: [facility] [address], 170, cm, 01/02/22 9:19:00 EDT, Height/Length [...] Documented Da te Episodic/Chronic Acute cerebrovascular disease (14 sources) Cerebrovascular accident; Translations: [Cerebral infarction, unspecified] Onset: 4 10-24-2023 Chronic Cardiac dysrhythmias (2 sources) Palpitations; Translations: [Palpitations] Onset: 4 10-24-2023 Episodic Cataract (10 sources) Cataract of right eye; Translations: [Unspecified cataract] Onset: 4 10-25-2023 Chronic Diabetes mellitus without complication (2 sources) Hyperglycemia; Translations: [Hyperglycemia, unspecified] Onset: 4 10-24-2023 Episodic Disorders of lipid metabolism (13 sources) Hyperlipidemia, unspecified; Translations: [Mixed hyperlipidemia] Onset: 1 12-12-2023 Chronic Esophageal disorders (13 sources) Gastroesophageal reflux disease; Translations: [Gastro-esophageal reflux [...] Onset: 4 Episodic Other connective tissue disease (9 sources) Cramp in lower limb; Translations: [Cramp [...] 4 12-12-2023 Episodic Other upper respiratory disease (9 sources) Feeling of lump in throat; Translations: [Sensation of lump in throat] Onset: 4 06-17-2024 Episodic Other upper respiratory disease (9 sources) Throat irritation; Translations: [Other diseases of pharynx] Onset: 4 06-17-2024 Episodic Residual codes; unclassified (8 sources) Obstructive sleep apnea syndrome; Translations: [Obstructive sleep apnea (adult) (pediatric)] Onset: 4 11-16-2022 Chronic Residual codes; unclassified (1 source) Obstructive sleep apnea (adult) (pediatric); Translations: [Obstructive sleep apnea (adult) (pediatric)] Onset: Chronic Residual codes; unclassified (1 source) Pain, unspecified; Translations: [Pain, unspecified] Onset: 4 Episodic Spondylosis; intervertebral disc disorders; other back problems (6 sources) Degeneration of lumbar intervertebral disc; Translations: [Degeneration of intervertebral disc of lumbar region with discogenic back pain and lower extremity pain] 07-02-2024 Chronic Spondylosis; intervertebral disc disorders; other back problems (20 sources) Lumbago with sciatica; Translations: [Lumbago with sciatica, unspecified side] Onset: 4 06-17-2024 Episodic Superficial injury; contusion (7 sources) Blister; Translations: [Blister (nonthermal) of throat, initial encounter] Onset: 4 06-17-2024 Episodic Transient cerebral ischemia (1 source) Transient cerebral ischemia; Translations: [Transient cerebral ischemic attack, unspecified] 12-12-2023 Chronic Past or Other Problems Problem Classification Problem Date Documented Date Episodic/Chronic Abdominal pain (4 sources) Unspecified abdominal pain; Translations: [UNSPECIFIED ABDOMINAL PAIN] Onset: 11-22-2021 Episodic Mood disorders (10 sources) Mood disorders Onset: 08-28-2023 Resolved: 10-24-2023 10-24-2023 Noninfectious gastroenteritis (8 sources) Chronic diarrhea of unknown origin ; Translations: [Noninfective gastroenteritis and colitis, unspecified] Onset: 08-28-2023 08-28-2023 Episodic Other non-traumatic joint disorders (1 source) Pain in left shoulder; Translations: [PAIN IN LEFT SHOULDER] Onset: 11-23-2021 Episodic Screening and history of mental health and substance abuse codes (11 sources) Ex-smoker; Translations: [Personal history of tobacco [...] Chrissie STILES MD Primary Care Physician - ANTONI CHO [...] the Following Appointments Follow Up with Chrissie STILES MD, URL When: Where: [address] [place] [id number]- Medications What How Much When Instructions Unchanged [...] to shrin (more content not included)... Normal [facility] Urology Office/Clinic Noteon 03-09-2024 Urology Office/Clinic Note [...] Information ASHLEIGH POTTS, Chrissie Bradley, URL [address] [facility] [address] [place], [place] [id number]- Additional Instructions: PRN Patient Education Benign Prostatic Hyperplasia I, Lana Lancaster, personally scribed for Dr. Stiles on 03/09/2024 08:22:31. . Documentation recorded by the scribe, Lana Lancaster, accurately reflects the services(s) I performed and decisions made by me. Authenticated by Dr. Stiles on 03/09/2024 08:23:21. Portions of this record may have been created with voice recognition artificial intelligence software, specifically [employer], [employer] and or [employer]. Substitutions may have occurred due to the [...] Denies Tobacco (more content not included)... Normal [facility] Comment on above: Result Comment: Elec tronically Signed By: Chrissie STILES MD\.br\Date and Time Signed: 03/09/24 08:24 EDT\.br\Electronically Co-Signed By: Lana Lancaster\.br\Date and Time Co-Signed: 03/09/24 08:[address] CTA CAROTIDon 11-28-[address] CTA CAROTID Examination: CTA carotids Clinical History: Cerebrovascular accident (CVA), unspecified mechanism ([facility]) Stroke in August 2023. Assess embolic source Comparison: None CT CTA CAROTID Procedure: Multidetector CT angiogram performed through the cervical portion of the carotid arteries without complication, including source images and maximum intensity projection 3-D images displayed and reviewed on an independent PACS workstation by the radiologist. Automated exposure control was utilized. The [place] Symptomatic Carotid Endarterectomy Trial (NASCET)calculation of ICA [...] Sheldon MD on 11/28/2023 12:17 PM Normal [facility] CT CTA HEADon 11-28-[address] CTA HEAD History: Cerebrovascular accident (CVA), unspecified mechanism ([facility]) Procedure: CT CTA HEAD Multidetector CT angiogram performed with IV contrast through the [place] using 3 -D Maximum intensity [...] aneurysm or major vessel occlusion of the [place], within limitations of CT. Flow is demonstrated within the vertebral arteries, basilar artery, bilateral posterior cerebral arteries, middle cerebral arteries and anterior cerebral arteries. 3D reformatted images confirm the source data findings. IMPRESSION: * Unremarkable CT angiogram [place]. * If you have high clinical suspicion for occult process such as an infarct consider CT perfusion and brain MRI. 0 Finalized by Mckay Sheldon MD on 11/28/2023 12:33 PM Normal [facility] COVID + FLU Quick Testingon 09-08-2023 SARS-CoV-2 (COVID-19) RNA RANDALL+probe Ql (Unsp spec) Negative clipkit Other COVID + FLU Quick Testing Positive clipkit Other COVID + FLU Quick Testing Negative clipkit Other Office Visit (Cardiology)on 11-21-2022 Follow-up visit [...] years the last of which was in [place] 2 and half years ago which was [...] I will retrieve the stress test from [place]. Patient is considered low risk for the [...] Vital Signs Recorded: 21Nov2022 10:36AMRecorded: 21Nov2022 10:34AM Bqkifmal887, LUE, Qhtofir426, RUE, Sitting Nhqbdtevm65, LUE, Fymjtrm11, RUE, Sitting Heart Rate67, Apical Height5 ft 7 in Bbgglo065 lb BMI Tvrwezmjfe31.98 kg/m2 BSA Calculated1.96 Tobacco Useb) No PHQ-2 [...] no masses (more content not included)... Normal [facility] Tobacco Screening.on 023 Adult depression screening assessment No [facility] 250 DO Work Phone: Fall risk assessment a) No falls within the last year [facility] 250 DO Work Phone: Tobacco use status [facility] b) No [facility] 250 DO Work Phone: CHEMISTRYOrdered By: SYSTEM [...] rate/Area] mL/min/1.73 m2 Normal >=59mL/min/1 .73 m2 [place] Chem S Glucose [Mass/Vol] 73 mg/dL Normal [...] AM) Normal Negative [facility] UA Auto SS [place].plasma/[place] .RBC (Bld) [Mass ratio] 0-3 /HPF Normal [...] [facility] UA Auto SS Urobilinogen Qn (U) [id number] {Jaleel'U}/dL Normal 0.0 - 1.0 EU/dL [facility] UA Auto SS WBC Auto Ql (U) Negative (11/16/22 9:55 AM) Normal Negative [facility] UA Auto SS WBC LM.HPF (Urine sed) [#/Area] 0-5 /HPF Normal 0-5/HPF [place] UA Auto SS US SCROTUMon 10-17-2022 US [...] by: JERMAIN BROWN Date: 2022-10-17 15:11 Normal [facility] CT ABD/PELV W CONon 12-03-19 CT [...] KINA MAHMOOD Date: 2021-12-02 08:29 Normal [facility] CBC AUTO DIFFon 11-22-2021 BASO # 0.0 103/ul Normal 0.0-0.1 [facility] Comment on above: Performed By: #### C BC #### [facility] [address] [place], [place] [address] Dr. Ever Kenny Basophils/100 WBC (Bld) 0.2 % Normal 0.2-2.0 [facility] Comment on above: Performed By: #### C BC #### [facility] [address] [place], [place] [address] Dr. Ever Kenny EO # 0.3 103/ul Normal 0.0-0.7 [facility] Comment on above: Performed By: #### C BC #### [facility] [address] [place] [address] Dr. Ever Kenny Eosinophils/100 WBC (Bld) 5.5 % Normal 0.9-7.0 [facility] Comment on above: Performed By: #### C BC #### [facility] [address] [place] [address] Dr. Ever Kenny Erythrocyte distribution width (RBC) [Ratio] 12.8 % Normal 11.0-15.0 [facility] Comment on above: Performed By: #### C BC #### [facility] [address] [place] [address] Dr. Ever Kenny Hematocrit (Bld) [Volume fraction] 47.1 % Normal 42.0-54.0 [facility] Comment on above: Performed By: #### C BC #### [facility] [address] [place] [address] Dr. Ever Kenny Hemoglobin (Bld) [Mass/Vol] 15.2 g/dL Normal 14.0-18.0 [facility] Comment on above: Performed By: #### C BC #### [facility] [address] [place] [address] Dr. Ever Kenny IG # 0.03 10e3/ul Normal 0.00-0.03 [facility] Comment on above: Performed By: #### C BC #### [facility] [address] [place] [address] Dr. Ever Kenny IG % 0.5 % Normal 0.0-0.5 [facility] Comment on above: Performed By: #### C BC #### [facility] [address] [place] [address] Dr. Ever Kenny LYMPH # 1.7 103/ul Normal 1.2-3.8 [facility] Comment on above: Performed By: #### C BC #### [facility] [address] [place] [address] Dr. Ever Kenny Lymphocytes/100 WBC (Bld) 26.9 % Normal 20.5-60.0 [facility] Comment on above: Performed By: #### C BC #### [facility] [address] [place] [address] Dr. Ever Kenny MANUAL DIFF REQ NO Normal [facility] Comment on above: Performed By: #### C BC #### [facility] [address] [place] [address] Dr. Ever Kenny MCH (RBC) [Entitic mass] 31.6 pg Normal 25.9-34.0 [facility] Comment on above: Performed By: #### C BC #### [facility] [address] [place] [address] Dr. Ever Kenny MCHC (RBC) [Mass/Vol] 32.3 g/dL Normal 29.9-35.2 [facility] Comment on above: Performed By: #### C BC #### [facility] [address] [place] [address] Dr. Ever Kenny MCV (RBC) [Entitic vol] 97.9 fL Critically high 80.0-94.0 [facility] Comment on above: Performed By: #### C BC #### [facility] [address] [place] [address] Dr. Ever Kenny MONO # 0.7 103/ul Normal 0.3-0.8 [facility] Comment on above: Performed By: #### C BC #### [facility] [address] [place] [address] Dr. Ever Kenny Monocytes/100 WBC (Bld) 11.1 % Normal 1.7-12.0 [facility] Comment on above: Performed By: #### C BC #### [facility] [address] [place] [address] Dr. Ever Kenny NEUT # 3.4 103/ul Normal 1.4-6.5 [facility] Comment on above: Performed By: #### C BC #### [facility] [address] [place] [address] Dr. Ever Kenny Neutrophils/100 WBC (Bld) 55.8 % Normal 43.0-75.0 [facility] Comment on above: Performed By: #### C BC #### [facility] [address] [place] [address] Dr. Ever Kenny Platelet mean volume (Bld) [Entitic vol] 9.2 fL Critically low 9.5-13.5 [facility] Comment on above: Performed By: #### C BC #### [facility] [address] [place] [address] Dr. Ever Kenny PLT 222 103/ul Normal 150-450 [facility] Comment on above: Performed By: #### C BC #### [facility] [address] [place] [address] Dr. Ever Kenny RBC 4.81 106/ul Normal 4.70-6.10 [facility] Comment on above: Performed By: #### C BC #### [facility] [address] [place] [address] Dr. Ever Kenny WBC 6.1 103/ul Normal 4.0-11.0 [facility] Comment on above: Performed By: #### C BC #### [facility] [address] [place] [address] Dr. Ever Kenny LIPID PROFILEon 11-22-2021 CHOL-HDL RATIO NORM SEE BELOW Normal [facility] Comment on above: Result Comment: 3.3 - 4.4 LOW RISK 4.4 - 7.1 AVERAGE RISK 7.1 - 11.0 MODERATE RISK >11.0 HIGH RISK Performed By: #### L IPID, CMP #### [facility] [address] [place] [address] Dr. Ever Kenny Cholesterol [Mass/Vol] 206 mg/dL Critically high <=200 [facility] Comment on above: Performed By: #### L IPID, CMP #### [facility] [address] [place] [address] Dr. Ever Kenny Cholesterol in HDL [Mass/Vol] 57 mg/dL Normal [facility] Comment on above: Performed By: #### L IPID, CMP #### [facility] [address] [place] [address] Dr. Ever Kenny Cholesterol in LDL [Mass/Vol] 129.4 mg/dL Normal [facility] Comment on above: Performed By: #### L IPID, CMP #### [facility] [address] [place] [address] [address] Ever eKnny Cholesterol.total/Chol esterol in HDL [Mass ratio] 3.6 {ratio} Normal [facility] Comment on above: Performed By: #### L IPID, CMP #### [facility] [address] [place] [address] [address] Ever Kenny HDL NORMAL > or = 60 mg/dl - LOW CARDIOVASCULAR RISK <40 mg/dl - HIGH CARDIOVASCULAR RISK Normal [facility] Comment on above: Performed By: #### L IPID, CMP #### [facility] [address] [place] [address] [address] Ever Kenny LDL CALC NORMAL SEE BELOW Normal [facility] Comment on above: Result Comment: <100 mg/dl OPTIMAL 100 - 129 mg/dl NEAR OR ABOVE OPTIMAL 130 - 159 mg/dl BORDERLINE HIGH 160 - 189 mg/dl HIGH >190 mg/dl VERY HIGH Performed By: #### L IPID, CMP #### [facility] [address] [place] [address] [address] Ever Kenny Triglyceride [Mass/Vol] 98 mg/dL Normal <=150 [facility] Comment on above: Performed By: #### L IPID, CMP #### [facility] [address] [place] [address] Dr. Ever Kenny VLDL CALC 19.6 mg/dL Normal [facility] Comment on above: Performed By: #### L IPID, CMP #### [facility] [address] [place] [address] Dr. Ever Kenny PROF 14(COMP METB)on 022 Albumin [Mass/Vol] 3.9 g/dL Normal 3.5-5.0 [facility] Comment on above: Performed By: #### L IPID, CMP #### [facility] [address] [place] [address] Dr. Ever Kenny Albumin/Globulin [Mass ratio] 1.3 {ratio} Normal [facility] Comment on above: Performed By: #### L IPID, CMP #### [facility] [address] [place] [address] Dr. Ever Kenny ALP [Catalytic activity/Vol] 52 U/L Normal 38-126 [facility] Comment on above: Performed By: #### L IPID, CMP #### [facility] [address] [place] [address] [address] Ever Kenny ALT [Catalytic activity/Vol] 24 U/L Normal 21-72 [facility] Comment on above: Performed By: #### L IPID, CMP #### [facility] [address] [place] [address] [address] Ever Kenny Anion gap [Moles/Vol] 9.8 mmol/L Normal [facility] Comment on above: Performed By: #### L IPID, CMP #### [facility] [address] [place] [address] Dr. Ever Kenny AST [Catalytic activity/Vol] 15 U/L Critically low 17-59 [facility] Comment on above: Performed By: #### L IPID, CMP #### [facility] [address] [place] [address] Dr. Ever Kenny Bilirubin [Mass/Vol] 0.7 mg/dL Normal 0.2-1.3 [facility] Comment on above: Performed By: #### L IPID, CMP #### [facility] [address] [place] [address] Dr. Ever Kenny Calcium [Mass/Vol] 8.8 mg/dL Normal 8.4-10.2 [facility] Comment on above: Performed By: #### L IPID, CMP #### [facility] [address] [place] [address] Dr. Ever Kenny Chloride [Moles/Vol] 106 mmol/L Normal 98-107 [facility] Comment on above: Performed By: #### L IPID, CMP #### [facility] [address] [place] [address] Dr. Ever Kenny CO2 [Moles/Vol] 29.5 mmol/L Normal 22.0-30.0 [facility] Comment on above: Performed By: #### L IPID, CMP #### [facility] [address] [place] [address] Dr. Ever Kenny Creatinine [Mass/Vol] 1.05 mg/dL Normal 0.66-1.25 [facility] Comment on above: Performed By: #### L IPID, CMP #### [facility] [address] [place] [address] Dr. Ever Kenny EGFR-AF SERBIAN >60 Normal >=60 [facility] Comment on above: Performed By: #### L IPID, CMP #### [facility] [address] [place] [address] [address] Ever Kenny EGFR-NON AF SERBIAN >60 Normal >=60 [facility] Comment on above: Performed By: #### L IPID, CMP #### [facility] [address] [place] [address] [address] Ever Kenny Globulin (S) [Mass/Vol] 2.9 g/dL Normal [facility] Comment on above: Performed By: #### L IPID, CMP #### [facility] [address] [place] [address] [address] Ever Kenny Glucose [Mass/Vol] 105 mg/dL Normal 74-106 [facility] Comment on above: Performed By: #### L IPID, CMP #### [facility] [address] [place] [address] [address] Ever Kenny Potassium [Moles/Vol] 4.3 mmol/L Normal 3.4-5.0 [facility] Comment on above: Performed By: #### L IPID, CMP #### [facility] [address] [place] [address] [address] Ever Kenny Protein [Mass/Vol] 6.8 g/dL Normal 6.1-8.2 [facility] Comment on above: Performed By: #### L IPID, CMP #### [facility] [address] [place] [address] [address] Ever Kenny Sodium [Moles/Vol] 141 mmol/L Normal 137-145 [facility] Comment on above: Performed By: #### L IPID, CMP #### [facility] [address] [place] [address] Dr. Ever Kenny Urea nitrogen [Mass/Vol] 19.0 mg/dL Normal 9.0-20.0 [facility] Comment on above: Performed By: #### L IPID, CMP #### [facility] [address] [place] [address] Dr. Ever Kenny Urea nitrogen/Creatinine [Mass ratio] 18.1 mg/mg Normal [facility] Comment on above: Performed By: #### L IPID, CMP #### [facility] [address] [place] [address] Dr. Evre Kenny UA (CLEAN/CATCH) MICROSCOPIC IF INDICATEon 11-22-2021 Bilirubin Ql (U) Negative Normal NEGATIVE [facility] Comment on above: Performed By: #### FAIZA WARRENICRO #### [facility] [address] [place] [address] Dr. Ever Kenny Clarity (U) CLEAR Normal CLEAR [facility] Comment on above: Performed By: #### FAIZA WARRENICRO #### [facility] [address] [place], [place] [address] Dr. Ever Kenny Color (U) LT. YELLOW Normal YELLOW [facility] Comment on above: Performed By: #### FAIZA WARRENICRO #### [facility] [address] [place] [address] Dr. Ever Kenny Glucose Ql (U) Negative Normal NEGATIVE [facility] Comment on above: Performed By: #### FAIZA WARRENICRO #### [facility] [address] [place] [address] Dr. Ever Kenny Hemoglobin Ql (U) MODERATE Abnormal NEGATIVE [facility] Comment on above: Performed By: #### Will RICH UMICRO #### [facility] [address] [place] [address] Dr. Ever Kenny Ketones Ql (U) Negative Normal NEGATIVE [facility] Comment on above: Performed By: #### Will RICH UMICRO #### [facility] [address] [place] [address] Dr. Ever Kenny LEUKOCYTES Negative Normal NEGATIVE [facility] Comment on above: Performed By: #### U LAYLA UMICRO #### [facility] [address] [address] [address] Ever Kenny Nitrite Ql (U) Negative Normal NEGATIVE [facility] Comment on above: Performed By: #### U LAYLA UMICRO #### [facility] [address] [address] [address] Ever Kenny pH (U) 7.0 [pH] Normal 5-9 [facility] Comment on above: Performed By: #### U LAYLA UMICRO #### [facility] [address] [place] [address] Dr. Ever Kenny SPEC GRAVITY 1.010 Normal 1.005-<=1.02 5 [facility] Comment on above: Performed By: #### Will RICH UMICRO #### [facility] [address] [place] [address] Dr. Ever Kenny UA PROTEIN Negative Normal NEGATIVE/ TRACE [facility] Comment on above: Performed By: #### Will RICH UMICRO #### [facility] [address] [address] [address] Ever Kenny UR MICRO IND INDICATED Normal [facility] Comment on above: Performed By: #### FAIZA WARRENICRO #### [facility] [address] [address] [address] Ever Kenny Urobilinogen Qn (U) 0.2 {Jaleel'U}/dL Normal 0.2 - 1. 0 [facility] Comment on above: Performed By: #### U LAYLA UMICRO #### [facility] [address] [address] [address] Ever Kenny URINE MICROSCOPIC ONLYon BACTERIA NONE SEEN Normal NONE SEEN The [facility] Comment on above: Performed By: #### U LAYLA UMICRO #### [facility] [address] [address] [address] Ever Kenny Bacteria identified Cx Nom (U) NOT INDICATED Normal [facility] Comment on above: Performed By: #### Will RICH UMICRO #### [facility] [address] [address] [address] Ever Kenny CAST NONE SEEN Normal NONE SEEN [facility] Comment on above: Performed By: #### Will RICH UMICRO #### [facility] [address] [address] [address] Ever Kenny Crystals LM Nom (Urine sed) NONE SEEN Normal NONE SEEN [facility] Comment on above: Performed By: #### Will RICH UMICRO #### [facility] [address] [address] [address] Ever Kenny Epithelial cells LM Ql (Urine sed) NONE SEEN Normal NONE SEEN /RARE [facility] Comment on above: Performed By: #### Will RICH UMICRO #### [facility] [address] [address] [address] Ever Kenny MUCOUS SMALL Abnormal NONE SEEN [facility] Comment on above: Performed By: #### Will RICH UMICRO #### [facility] [address] [address] [address] Ever Kenny RBC 0-2 Normal 0-2 [facility] Comment on above: Performed By: #### Will RICH UMICRO #### [facility] [address] [address] [address] Ever Kenny SPERMATOZOA, UR PRESENT Abnormal [facility] Comment on above: Performed By: #### Will RICH UMICRO #### [facility] [address] [place] [address] Dr. Ever Kenny WBC NONE SEEN Normal NONE SEEN [facility] Comment on above: Performed By: #### Will RICH UMICRO #### [facility] [address] [address] [address] Ever Kenny Vital Signs Date Time Vital Sign Value Performing Clinician Facility 07-09-2024 11:38-0400 Body height 170.2 cm Stacey Vaughn [employer] Work Phone: [facility] 07-09-2024 11:38-0400 Body mass index (BMI) [Ratio] 26.09 kg/m2 Stacey Vaughn [employer] Work Phone: [facility] 07-09-2024 11:38-0400 Body temperature 96.69 [degF] Stacey Vaughn [employer] Work Phone: [facility] 07-09-2024 11:38-0400 Body weight 75.57 kg Stacey Vaughn [employer] Work Phone: [facility] 07-09-2024 11:38-0400 Diastolic blood pressure 60 mm[Hg] Stacey Vaughn [employer] Work Phone: [facility] 07-09-2024 11:38-0400 Heart rate 75 /min Stacey Vaughn [employer] Work Phone: [facility] 07-09-2024 11:38-0400 Respiratory rate 16 /min Stacey Vaughn [employer] Work Phone: [facility] 07-09-2024 11:38-0400 SaO2% (BldA) [Mass fraction] 93 % Stacey Vaughn [employer] Work Phone: [facility] 07-09-2024 11:38-0400 Systolic blood pressure 116 mm[Hg] Stacey Vaughn [employer] Work Phone: [facility] 06-17-2024 09:41-0400 Body mass index (BMI) [Ratio] 26.78 kg/m2 Stacey Vaughn [employer] Work Phone: [facility] 06-17-2024 09:41-0400 Body temperature 97.81 [degF] Stacey Vaughn [employer] Work Phone: [facility] 06-17-2024 09:41-0400 Body weight 77.56 kg Stacey Vaughn [employer] Work Phone: [facility] 06-17-2024 09:41-0400 Diastolic blood pressure 64 mm[Hg] Stacey Junezpatrick [employer] Work Phone: [facility] 06-17-2024 09:41-0400 Heart rate 57 /min Stacey Junezpatrick [employer] Work Phone: [facility] 06-17-2024 09:41-0400 SaO2% (BldA) [Mass fraction] 99 % Stacey Junezpatrick [employer] Work Phone: [facility] 06-17-2024 09:41-0400 Systolic blood pressure 122 mm[Hg] Stacey Junezpatrick [employer] Work Phone: [facility] 03-09-2024 07:58-0400 Blood Pressure Location Chrissie STILES [facility] 03-09-2024 07:58-0400 Diastolic blood pressure 60 mm[Hg] Chrissie STILES [facility] 03-09-2024 07:58-0400 Heart rate 62 /min Chrissie STILES [facility] 03-09-2024 07:58-0400 Respiratory rate 18 /min Chrissie STILES [facility] 03-09-2024 07:58-0400 Systolic blood pressure 130 mm[Hg] Chrissie ASHLEIGH [facility] 12-12-2023 11:23-0400 Body height 170.2 cm Taryn Real MD Work Phone: [facility] 12-12-2023 11:23-0400 Body mass index (BMI) [Ratio] 26.63 kg/m2 Taryn Real MD Work Phone: [facility] 12-12-2023 11:23-0400 Body weight 77.11 kg Taryn Real MD Work Phone: [facility] 12-12-2023 11:23-0400 Diastolic blood pressure 70 mm[Hg] Taryn Real MD Work Phone: [facility] 12-12-2023 11:23-0400 Heart rate 62 /min Taryn Real MD Work Phone: [facility] 12-12-2023 11:23-0400 Systolic blood pressure 128 mm[Hg] Taryn Real MD Work Phone: [facility] 10-24-2023 10:19-0500 Body height 170.2 cm Larissa Bach MD Work Phone: [employer] 10-24-2023 10:19-0500 Body mass index (BMI) [Ratio] 26.07 kg/m2 Larissa Bach [facility] 10-24-2023 10:19-0500 Body weight 75.52 kg Larissa Bach MD Work Phone: [employer] 10-24-2023 10:19-0500 Diastolic blood pressure 70 mm[Hg] Larissa Bach MD Work Phone: [employer] 10-24-2023 10:19-0500 Heart rate 72 /min Larissa Bach MD Work Phone: [employer] 10-24-2023 10:19-0500 Systolic blood pressure 126 mm[Hg] Larissa Bach MD Work Phone: [employer] 09-08-2023 12:00-0500 Body height 168.91 cm Jeannie Mclean Other [employer] Other 09-08-2023 12:00-0500 Body mass index (BMI) [Ratio] 26.8 kg/m2 Jeannie Mclean Other [employer] Other 09-08-2023 12:00-0500 Body temperature 98.9 [degF] Jeannie Mclean Other [employer] Other 09-08-2023 12:00-0500 Body weight 76.48 kg Jeannie Mclean Other [employer] Other 09-08-2023 12:00-0500 Respiratory rate 18 /min Jeannie Mclean Other [employer] Other 09-08-2023 12:00-0500 SaO2% (BldA) [Mass fraction] 93 % Jeannie Mclean Other [employer] Other 08-13-2023 10:20-0500 Body height 168.91 cm Jama King Other [employer] Other 08-13-2023 10:20-0500 Body mass index (BMI) [Ratio] 27.42 kg/m2 Jama King Other [employer] Other 08-13-2023 10:20-0500 Body weight 78.25 kg Jama King Other [employer] Other 08-13-2023 10:20-0500 Diastolic blood pressure 70 mm[Hg] Jama Scovanner Other [employer] Other 08-13-2023 10:20-0500 Systolic blood pressure 132 mm[Hg] Jama Scovanner Other [employer] Other 07-09-2023 10:20-0400 Body height 168.91 cm Jama King Other [employer] Other 07-09-2023 10:20-0400 Body mass index (BMI) [Ratio] 27.34 kg/m2 Jama Ehatilio Other [facility] [employer] Other 07-09-2023 10:20-0400 Body weight 78.02 kg Jama Ehatilio Other [employer] Other 07-09-2023 10:20-0400 Diastolic blood pressure 67 mm[Hg] Jama Scovantoña Other [facility] [employer] Other 07-09-2023 10:20-0400 Systolic blood pressure 129 mm[Hg] Jama Scovantoña Other [facility] [employer] Other 03-04-2023 09:03-0400 Blood Pressure Location Chrissie [employer] [facility] 03-04-2023 09:03-0400 Diastolic blood pressure 78 mm[Hg] Chrissie [employer] [facility] 03-04-2023 09:03-0400 Heart rate 68 /min Chrissie [employer] [facility] 03-04-2023 09:03-0400 Respiratory rate 16 /min Chrissie [employer] [facility] 03-04-2023 09:03-0400 Systolic blood pressure 128 mm[Hg] Chrissie [employer] [facility] 12-18-2022 11:15-0400 Body height 168.91 cm Jeannie Mclean Other [facility] [employer] Other 12-18-2022 11:15-0400 Body mass index (BMI) [Ratio] 29.41 kg/m2 Jeannie Mclean Other [employer] Other 12-18-2022 11:15-0400 Body temperature 97.1 [degF] Jeannie Mclean Other [employer] Other 12-18-2022 11:15-0400 Body weight 83.92 kg Jeannie Mclean Other [employer] Other 12-18-2022 11:15-0400 Diastolic blood pressure 75 mm[Hg] Jeannie Mclean Other [employer] Other 12-18-2022 11:15-0400 Respiratory rate 18 /min Jeannie Mclean Other [employer] Other 12-18-2022 11:15-0400 SaO2% (BldA) [Mass fraction] 96 % Jeannie Mclean Other [employer] Other 12-18-2022 11:15-0400 Systolic blood pressure 125 mm[Hg] Jeannie Mclean Other [employer] Other 11-29-2022 12:25-0400 Body temperature 97.7 [degF] Chrissie [employer] [facility] 11-29-2022 12:25-0400 Diastolic blood pressure 89 mm[Hg] Chrissie [employer] [facility] 11-29-2022 12:25-0400 Heart rate 64 /min Chrissie [employer] [facility] 11-29-2022 12:25-0400 Respiratory rate 18 /min Chrissie [employer] [facility] 11-29-2022 12:25-0400 SaO2% (BldA) [Mass fraction] 97 % Chrissie STILES [facility] 11-29-2022 12:25-0400 Systolic blood pressure 139 mm[Hg] Chrissie STILES [facility] 11-29-2022 11:25-0400 Blood Pressure Location Chrissie STILES [facility] 11-29-2022 11:25-0400 Body temperature 97.7 [degF] Chrissie STILES [facility] 11-29-2022 11:25-0400 Diastolic blood pressure 72 mm[Hg] Chrissie STILES [facility] 11-29-2022 11:25-0400 Heart rate 62 /min Chrissie STILES [facility] 11-29-2022 11:25-0400 Respiratory rate 18 /min Chrissie STILES [facility] 11-29-2022 11:25-0400 SaO2% (BldA) [Mass fraction] 97 % Chrissie STILES [facility] 11-29-2022 11:25-0400 Systolic blood pressure 135 mm[Hg] Chrissie STILES [facility] 11-29-2022 11:11-0400 Blood Pressure Location Chrissie STILES [facility] 11-29-2022 11:11-0400 Body temperature 96.8 [degF] Chrissie STILES [facility] 11-29-2022 11:11-0400 Diastolic blood pressure 68 mm[Hg] Chrissie STILES [facility] 11-29-2022 11:11-0400 Heart rate 61 /min Chrissie STILES [facility] 11-29-2022 11:11-0400 Respiratory rate 16 /min Chrissie STILES [facility] 11-29-2022 11:11-0400 SaO2% (BldA) [Mass fraction] 96 % Chrissie STILES [facility] 11-29-2022 11:11-0400 Systolic blood pressure 133 mm[Hg] Chrissie STILES [facility] 11-29-2022 11:01-0400 Blood Pressure Location Chrissie STILES [facility] 11-29-2022 10:40-0400 Respiratory rate 13 /min Chrissie STILES [facility] 11-29-2022 10:35-0400 Respiratory rate 12 /min Chrissie STILES [facility] 11-29-2022 10:30-0400 Respiratory rate 12 /min Chrissie STILES [facility] 11-29-2022 08:30-0400 Body temperature 97.7 [degF] Chrissie STILES [facility] 11-29-2022 08:30-0400 Heart rate 78 /min Chrissie STILES [facility] 11-21-2022 10:36-0400 Diastolic blood pressure 78 mm[Hg] Antoni Onavo Work Phone: [facility] DO Work Phone: 11-21-2022 10:36-0400 Systolic blood pressure 122 mm[Hg] Antoni P House Work Phone: [facility] DO Work Phone: 11-21-2022 10:34-0400 Body height 170.18 cm Antoni P House Work Phone: [facility] DO Work Phone: 11-21-2022 10:34-0400 Body mass index (BMI) [Ratio] 28.98 kg/m2 Antoni P House Work Phone: [facility] DO Work Phone: 11-21-2022 10:34-0400 Body surface area Derived from formula 1.96 m2 Antoni P House Work Phone: [facility] DO Work Phone: 11-21-2022 10:34-0400 Body weight 83.92 kg Antoni P House Work Phone: [facility] DO Work Phone: 11-21-2022 10:34-0400 Diastolic blood pressure 76 mm[Hg] Antoni P House Work Phone: [facility] DO Work Phone: 11-21-2022 10:34-0400 Heart rate 67 /min Antoni P House Work Phone: [facility] DO Work Phone: 11-21-2022 10:34-0400 Systolic blood pressure 124 mm[Hg] Antoni P House Work Phone: [facility] DO Work Phone: 11-16-2022 09:42-0500 Diastolic blood pressure 78 mm[Hg] Chrissie STILES [facility] 11-16-2022 09:42-0500 Heart rate 60 /min Chrissie STILES [facility] 11-16-2022 09:42-0500 Mean blood pressure 96 mm[Hg] Chrissie STILES [facility] 11-16-2022 09:42-0500 Systolic blood pressure 132 mm[Hg] Chrissie STILES [facility] 11-16-2022 09:42-0500 Heart rate 60 /min Chrissie STILES [facility] 11-16-2022 09:42-0500 SaO2% (BldA) [Mass fraction] 98 % Chrissie STILES [facility] 11-16-2022 09:42-0500 Body temperature 97.88 [degF] Chrissie STILES [facility] 11-16-2022 09:41-0500 Diastolic blood pressure 78 mm[Hg] Chrissie STILES [facility] 11-16-2022 09:41-0500 Mean blood pressure 97 mm[Hg] Chrissie STILES [facility] 11-16-2022 09:41-0500 Systolic blood pressure 134 mm[Hg] Chrissie STILES [facility] 01-15-2022 13:36-0400 Blood Pressure Location Chino Flores Jr. [facility] 01-15-2022 13:36-0400 Diastolic blood pressure 55 mm[Hg] Chino Flores Jr. [facility] 01-15-2022 13:36-0400 Heart rate 73 /min Chino Flores Jr. [facility] 01-15-2022 13:36-0400 Systolic blood pressure 128 mm[Hg] Chino Flores Jr. [facility] Encounters Encounter Date Encounter Type Care Provider Facility Start: 07-20-2024 End: 07-20-2024 ambulatory James Vyas MD Facility:[facility] Start: 07-14-2024 End: 07-14-2024 Refill Aurora Mckeon MA [facility] Comment on above: Ischemic stroke of f rontal lobe ([facility] Start: 07-13-2024 End: 07-13-2024 ambulatory James Vyas MD Facility:[facility] Start: 07-09-2024 End: 07-09-2024 Bamboo flowsheet Stacey Castillopatrick [employer] Work Phone: [facility] Start: 07-09-2024 End: 07-09-2024 Bamboo flowsheet Stacey Vaughn [employer] Work Phone: [facility] Start: 07-09-2024 End: 07-09-2024 ambulatory STACEY ROBERTSONK Not Available Start: 07-09-2024 End: 07-09-2024 Office outpatient visit 15 minutes Stacey Robertsonk [employer] Work Phone: [facility] Comment on above: Back pain of lumbosa cral region with sciatica (Primary Dx); Lumbar foraminal stenosis; Degeneration of intervertebral disc of lumbar region with discogenic back pain and lower extremity pain Start: 07-02-2024 End: 07-02-2024 Orders Only Stacey Francistrick [employer] Work Phone: [facility] Comment on above: Degeneration of inte rvertebral disc of lumbar region with discogenic back pain and lower extremity pain (Primary Dx); Central spinal stenosis; Foraminal stenosis of lumbar region Start: 06-17-2024 End: 06-17-2024 Bamboo flowsheet Stacey Castillopatrick [employer] Work Phone: [facility] Start: 06-17-2024 End: 06-17-2024 Bamboo flowsheet Stacey Vaughn [employer] Work Phone: [facility] Start: 06-17-2024 End: 06-17-2024 ambulatory STACEY VAUGHN Not Available Start: 06-17-2024 End: 06-17-2024 Office outpatient visit 15 minutes Stacey Vaughn NP Work Phone: [facility] Comment on above: Mixed hyperlipidemia (CMS/HCC) (Primary Dx); Gastroesophageal reflux disease without esophagitis; Chronic migraine without aura without status migrainosus, not intractable (CMS/HCC); Leg cramping; Back pain of lumbosacral region with sciatica; Sensation of lump in throat; Throat irritation Start: 03-09-2024 End: 03-09-2024 ambulatory Chrissie STILES Facility:[facility] Start: 03-09-2024 End: 03-09-2024 Patient encounter procedure Chrissie STILES [facility] Start: 01-29-2024 End: 01-29-2024 ambulatory SHAIKH LUIS ALBERTO Not Available Start: 12-12-2023 End: 12-12-2023 Office outpatient visit 15 minutes Taryn Real MD Work Phone: [facility] Comment on above: TIA (transient ische re attack) (Primary Dx); Mixed hyperlipidemia; BMI 26.0-26.9,adult; Former smoker Start: 11-28-2023 End: 11-29-2023 ambulatory [facility] Start: 11-28-2023 End: 11-28-2023 ambulatory [facility] Start: 10-29-2023 End: 10-29-2023 ambulatory SHAIKH LUIS ALBERTO Not Available Start: 10-24-2023 Telephone encounter Olena pena CMA [facility] Comment on above: Follow up Start: 10-24-2023 End: 10-24-2023 ambulatory [facility] Start: 10-24-2023 End: 10-24-2023 Office outpatient new 45 minutes Larissa Bach MD Work Phone: [facility] Comment on above: Cerebrovascular acci dent (CVA), unspecified mechanism (CMS- HCC) (Primary Dx); BRITTANY on CPAP; Chronic tension-type headache, not intractable; Cerebrovascular accident within last 3 months; Hyperglycemia; Palpitation; Cataract of right eye, unspecified cataract type Start: 10-13-2023 ambulatory SHAIKH LUIS ALBERTO [facility] Start: 10-09-2023 Telephone encounter [facility] Comment on above: STROKE REFERRAL Start: 10-01-2023 End: 10-01-2023 ambulatory SHAIKH LUIS ALBERTO Not Available Start: 09-08-2023 End: 09-08-2023 ambulatory Jeannie Mclean Other [employer] Other Start: 09-08-2023 Office outpatient vi sit 25 minutes Jeannie Mclean [facility] Start: 08-28-2023 Patient encounter procedure Stacey Vaughn NP Work Phone: [facility] Start: 08-28-2023 End: 08-28-2023 ambulatory SHAIKH LUIS ALBERTO Not Available Start: 08-13-2023 End: 08-13-2023 ambulatory Jama Scatilio Other [employer] Other Start: 08-13-2023 Office outpatient vi sit 15 minutes Jama Scovanner [facility] Start: 07-09-2023 End: 07-09-2023 ambulatory Jama Scovantoña Other [employer] Other Start: 07-09-2023 Office outpatient ne w 30 minutes Jama Scovanner [facility] Start: 03-04-2023 End: 03-04-2023 Patient encounter procedure Chrissie STILES [facility] Start: 12-21-2022 End: 12-21-2022 Patient encounter procedure Chrissie STILES [facility] Start: 12-18-2022 End: 12-18-2022 ambulatory Jeannie Mclean Other [facility] [employer] Other Start: 12-18-2022 Office outpatient vi sit 15 minutes Jeannie Mclean [facility] Start: 11-29-2022 End: 11-29-2022 Admission to same day surgery center Chrissie STILES [facility] Start: 11-21-[address] Antoni Cho Facility: Start: 11-21-2022 Office consultation new/estab patient 60 min [facility]i Cho [facility] Work Phone: Start: 11-16-[address] Antoni Cho Facility: Start: 11-16-2022 End: 11-16-2022 Patient encounter procedure Chrissie STILES [facility] Start: 10-17-2022 End: 10-18-[address] CHRISSIE STILES Facility:[facility] Start: 10-09-2022 End: 10-09-2022 Patient encounter procedure Chrissie STILES [facility] Start: 01-15-2022 End: 01-15-2022 Patient encounter procedure Chino Flores Jr. [facility] Start: 12-01-2021 End: 12-02-[address] ANTONI CHO Facility:[facility] Start: 11-22-2021 End: 11-23-[address] ANTONI CHO Facility:[facility] Patient encounter status Antoni Cho Work Phone: [facility] DO Work Phone: Procedures Date Procedure Procedure Detail Performing Clinician Start: 10-24-2023 Adult depression scr eening assessment Olena Kwadwo PORTER Start: 11-29-2022 Exploration of scrotum Chrissie STILES Start: 11-29-2022 Spermatic cord struc ture (body structure) Chrissiesudheer STILES Start: 01-15-2022 Cystoscopy Chino velazquez Jr. Start: 11-22-[address] LINDA STILES Comment on above: Performed By: #### P SAD #### [facility] [address] [place] [address] Dr. Ever Kenny Start: 01-27-2020 Colonoscopy Lauren Dawson ulices Start: 09-09-2019 Total colonoscopy Sarah Cho Work Phone: Cataract (disorder) Chrissie ASHLEIGH Colonoscopy Chino Olivo Excision of lipoma Antoni Cho Work Phone: Tonsillectomy Chino rosa Tonsillectomy Antoni oswald Work Phone: Plan of Treatment Date Care Activity Detail Author Start: 01-26-2025 Screening for malign ant neoplasm of colon Colonoscopy [facility] [employer] [facility] Start: 10-24-2024 Adult BMI Screening Adult BMI Screen ing [facility] Start: 10-24-2024 Depression Screening Depression Scre ening [facility] Start: 10-24-2024 Tobacco Screening Tobacco Screening [facility] Start: 09-15-2024 End: 09-15-2024 Patient encounter procedure 09/15/2024 8:30 AM EST Office Visit [facility] [address] [place] [address] Stacey Vaughn, OSCAR [address] [place] [address] [facility] Start: 09-12-2024 DTaP/Tdap/Td Vaccine s (2 - Td or Tdap) DTaP/Tdap/Td Vaccines (2 - Td or Tdap) [facility] Start: 08-28-2024 Medicare Annual Well ness (AWV) Medicare Annual Wellness (AWV) [facility] Start: 08-07-2024 Tobacco Screening Tobacco Screening [facility] Start: 08-06-2024 Adult BMI Screening Adult BMI Screen ing [facility] Start: 07-20-2024 End: 07-20-2024 Patient encounter procedure 07/20/2024 9:30 AM EST Office Visit [facility] [address] [place] [address] Stacey Vaughn, OSCAR [address] [place], [place] [address] [facility] Start: 07-15-2024 Pneumococcal Vaccine : 65+ Years (1 of 1 - PCV) Pneumococcal Vaccine: 65+ Years (1 of 1 - PCV) [facility] Comment on above: Postponed from 12/05 (Other Medical Reasons) Start: 07-09-2024 End: 07-09-2025 MR Lumbar spine WO contrast MR lumbar spine wo contrast Imaging Routine Back pain of lumbosacral region with sciatica Lumbar foraminal stenosis Degeneration of intervertebral disc of lumbar region with discogenic back pain and lower extremity pain Expected: 07/09/2024, Expires: 07/09/2025 [facility] Work Phone: Comment on above: Expected: 07/09/2024 , Expires: 07/09/2025 Start: 05-10-2024 Influenza vaccination [facility] Start: 11-28-2023 End: 11-28-2023 Patient encounter procedure [facility] Start: 11-12-2023 FUV, Provider: Taryn Real, Status: Pen, Time: 10:50 AM FUV, Provider: Taryn Real, Status: Pen, Time: 10:50 AM [facility] 250 DO Work Phone: Start: 10-24-2023 End: 10-24-2024 CTA Carotid artery W contrast IV CT angiogram carotid Imaging Routine Cerebrovascular accident (CVA), unspecified mechanism (CMS-HCC) Expected: 10/24/2023, Expires: 10/24/2024 [employer] Comment on above: Expected: 10/24/2023 , Expires: 10/24/2024 Start: 10-24-2023 End: 10-24-2024 CTA Head Arteries W contrast IV CT angiogram head Imaging Routine Cerebrovascular accident (CVA), unspecified mechanism (CMS-HCC) Expected: 10/24/2023, Expires: 10/24/2024 [employer] Work Phone: Comment on above: Expected: 10/24/2023 , Expires: 10/24/2024 Start: 10-24-2023 End: 10-24-2024 Echo complete W/O contrast Echo complete W/O contrast Echocardiography Routine Cerebrovascular accident (CVA), unspecified mechanism (CMS-HCC) Cerebrovascular accident within last 3 months Expected: 10/24/2023, Expires: 10/24/2024 [facility] Comment on above: Expected: 10/24/2023 , Expires: 10/24/2024 Start: 10-24-2023 End: 10-24-2024 Event monitor Event monitor Cardiac Services Routine Cerebrovascular accident (CVA), unspecified mechanism (CMS-HCC) Palpitation Expected: 10/24/2023, Expires: 10/24/2024 [employer] Comment on above: Expected: 10/24/2023 , Expires: 10/24/2024 Start: 10-24-2023 End: 10-24-2023 Patient encounter procedure 10/24/2023 10:00 AM EST Office Visit [facility] [address] [place] [id number] Larissa Bach MD [address] [place] [address], [address] [place] [address] [facility] Start: 05-10-2023 COVID-19 Vaccine ( season) COVID-19 Vaccine ( season) [facility] Start: 05-10-2023 Influenza vaccination Influenza Vacc ine [facility] Start: 2005 Fall Risk Screening Fall Risk Screen ing [facility] Start: 2005 Pneumococcal Vaccine : 65+ Years (1 of 1 - PCV) Pneumococcal Vaccine: 65+ Years (1 of 1 - PCV) [facility] Start: 1990 Administration of varicella zoster vaccine Zoster (Shingles) Vaccine (1 of 2) [facility] Start: 1990 Zoster Vaccines (1 of 2) Zoster Vacc magdalene (1 of 2) [facility] Start: 12-06-1959 DTaP,Tdap and Td Vaccines (1 - Tdap) DTaP,Tdap and Td Vaccines (1 - Tdap) [facility] Start: 1958 Adult BMI Follow Up Plan Adult BMI F ollow Up Plan [facility] Start: 1958 Diabetes mellitus screening Diabetes Screening [facility] Start: 1952 Depression Screening Depression Scre ening [facility] Start: 1940 Lipid panel Lipid Panel [facility] Start: 1940 Medicare Annual Well ness Visit [facility] End: 10-24-2024 Creatinine includes GFR, serum Creatinine includes GFR, serum Lab Routine Cerebrovascular accident (CVA), unspecified mechanism ([facility]) 1 Occurrences starting 10/24/2023 until 10/24/2024 [facility] Comment on above: 1 Occurrences starti ng 10/24/2023 until 10/24/2024 End: 10-24-2024 Hemoglobin A1c/Hemoglobin.total in Blood Hemoglobin A1c Lab Routine Cerebrovascular accident (CVA), unspecified mechanism ([facility]) Hyperglycemia 1 Occurrences starting 10/24/2023 until 10/24/2024 [facility] Comment on above: 1 Occurrences starti ng 10/24/2023 until 10/24/2024 End: 10-24-2024 Lipid 1996 panel - Serum or Plasma Lipid profile Lab Routine Cerebrovascular accident (CVA), unspecified mechanism ([facility]) 1 Occurrences starting 10/24/2023 until 10/24/2024 [facility] Comment on above: 1 Occurrences starti ng 10/24/2023 until 10/24/2024 XR Lumbar spine View s W flexion and W extension XR lumbar spine 4+ views w flexion extension Imaging Routine Back pain of lumbosacral region with sciatica Ordered: 06/17/2024 [facility] Work Phone: Comment on above: Ordered: 06/17/2024 Immunizations Immunization Date Immunization Notes Care Provider Joselito palmer 07-10-2022 Pfizer COVID-19 Vac Bivalent 30 MCG/0.3ML Intramuscular Suspension Antoni P Quofore Work Phone: [facility] 06-15-2022 Fluzone High-Dose Quadrivalent 0.7 ML Intramuscular Suspension Prefilled Syringe Antoni P [place] Work Phone: [facility] 250 DO Work Phone: 06-15-2022 influenza virus vaccine, unspecified formulation Chrissie STILES [facility] 08-10-2021 Pfizer-BioNTech COVID-19 Vacc 30 MCG/0.3ML Intramuscular Suspension Antoni P [place] Work Phone: [facility] 06-09-2021 SARS-CoV-2 (COVID-19 ) mRNA BNT-162b2 real Flores Jr. [facility] 12-08-2020 SARS-CoV-2 (COVID-19 ) mRNA BNT-162b2 real Flores Jr. [facility] 12-06-2020 Pfizer-BioNTech COVID-19 Vacc 30 MCG/0.3ML Intramuscular Suspension Antoni P [place] Work Phone: [facility] 11-14-2020 Pfizer-BioNTech COVID-19 Vacc 30 MCG/0.3ML Intramuscular Suspension Antoni P Quofore Work Phone: [facility] 11-07-2020 SARS-CoV-2 (COVID-19 ) mRNA BNT-162b2 vax [place] Mark Torres [facility] 09-03-2020 influenza virus vaccine, unspecified formulation Chrissie [employer] [facility] 09-03-2020 influenza, high dose seasonal, preservative-free Anotni P Quofore Work Phone: [place] [address] DO Work Phone: 09-03-2020 pneumococcal conjuga te vaccine, 13 valent Antoni P Quofore Work Phone: [facility] 06-27-2019 influenza virus vaccine, unspecified formulation Chrissie [employer] [facility] 06-27-2019 influenza, injectabl e, quadrivalent, preservative free Antoni P [place] Work Phone: [facility] 250 DO Work Phone: 06-27-2019 pneumococcal polysaccharide vaccine, 23 valent Antoni P [place] Work Phone: [facility] 09-12-2014 tetanus toxoid, redu brenda diphtheria toxoid, and acellular pertussis vaccine, adsorbed Jeannie Mclean Other [employer] Other Payers Date Payer Category Payer Medicare [id number] 2022 Private Health Insurance [id number] 2014 Private Health Insurance [id number] 2005 Medicare [id number] 1959 Medicare [id number] 1959 Private Health Insurance [id number] 1940 Unknown [id number] 2.16.84 [id number] 1940 Unknown [id number] 2.16.84 0.1.273303.3.579.2.593 1940 Unknown [id number] 2.16.84 0.1.211119.3.579.2.593 1940 Unknown [id number] 2.16. [id number] 1940 Unknown [id number] 2.16. [id number] 1940 Unknown [id number] 2.16.8 40.1.695314.3.579.2.1286 194 Unknown [id number] 2.16.8 40.1.743370.3.579.2.1286 1941 Unknown [id number] 2.16.8 40.1.253044.3.579.2.1286 1941 Unknown [id number] 2.16.8 40.1.213075.3.579.2.1286 194 Unknown [id number] 2.16.8 40.1.555252.3.579.2.727 194 Unknown [id number] 2.16.84 0.1.216668.3.579.2.1259 1940 Unknown [id number] 2.16.84 0.1.460070.3.579.2.1259 194 Unknown [id number] 2.16.84 0.1.084947.3.579.2.1259 1940 Unknown [id number] 2.16.84 0.1.422739.3.579.2.1259 1940 Unknown [id number] 2.16.84 0.1.297874.3.579.2.1259 1940 Unknown [id number] 2.16.840 .1.485864.3.579.2.1259 1940 Unknown [id number] 2.16. 840.1.334588.3.579.2.196 1940 Unknown [id number] 2.16. [id number] Unknown Social History Date Type Detail Facility Start: 01-15-2022 End: 10-01-2023 Tobacco smoking status Ex-smoker (finding) [facility] Start: 08-07-2023 End: 01-29-2024 Sex Assigned At Male [facility] Start: 06-11-2023 End: 01-29-2024 Social alcohol use Social alcohol use [facility] 250 DO Work Phone: Comment on above: quit 1978; End: 09-09-1978 History of tobacco use Current smoker [facility] End: 09-09-1978 History of tobacco use Cigarette Smoker [facility] Start: 06-11-2023 End: 10-01-2023 Tobacco use and exposure Smokeless tobacco non-user [facility] Start: 08-07-2023 End: 07-09-2024 Alcohol intake Current drinker of alcohol (finding) [facility] Childcare Unknown [facility] Start: 06-16-2021 Alcohol Comment 2-4 BEERS A DAY [facility] Start: 1940 Sex Assigned At Not on file P [facility] Start: 10-01-2023 Alcohol Comment [facility] Work Phone: Start: 12-02-2023 End: 12-12-2023 Exposure to SARS-CoV-2 (event) Not sure [facility] History of tobacco use Passive smoker [facility] Medical Equipment Procedure Code Equipment Code Equipment Origin al Text Equipment Identifier Dates Rosemarie Uv Iol [id number] Start: 07-02-2023 Helenerylie Uv Iol [id number] Start: 08-06-2023 Functional Status Date Assessment Result Facility 03-09-2024 Functional Status N/A [facility] 03-04-2023 Functional Status N/A [facility] 12-21-2022 Functional Status N/A [facility] 11-16-2022 Functional Status No [facility] 10-09-2022 Functional Status N/A [facility] Clinical Notes 11-22-2021 to 07-14-2024 Telephone Encounter - Aurora Mckeon MA - 07/14/2024 12:56 PM ESTTelephone Encounter - Aurora Mckeon MA - 07/14/2024 12:56 PM Celi Vaughn NP - 07/10/2024 8:52 AM EDTPatient Instructions Note Date & Type Note Facility 07-14-2024 Telephone encounter Note CLARISSA:07/09/2024 NOV:09/15/2024 [facility] 07-14-2024 Miscellaneous Notes CLARISSA:07/09/2024 NOV:09/15/2024 documented in this encounter [facility] 07-10-2024 History of Present illness Narrative Associated [...] 83 y.o. male who presents for Follow-up. MIRANDA Mathur for ongoing lumbar thoracis back pain. Was [...] spine wo contrast documented in this encounter [facility] 07-09-2024 Instructions Stacey Vaughn NP - 07/09/2024 11:30 AM EDT Call Pain management to schedule appointment DR KAMARA- [facility] [place], [place] [phone] MRI ordered. Have completed. We will call you with results. documented in this encounter [facility] 06-17-2024 History of Present illness Narrative [...] R ALBUMIN GLOBULIN RATIO 1.1 Resulting Agency [facility] GERD: Currently Taking Omeprazole every other day [...] 875-125 MG tablet documented in this encounter [facility] 06-17-2024 Instructions Stacey Vaughn NP - 06/17/2024 9:30 AM EDT Have Xray completed of lumbar spine. Take all medications as directed. Call if you need anything! If you develop sudden loss of bowel/bladder function, numbness, loss of strength or severe pain, GO TO ER! documented in this encounter [facility] 03-09-2024 Hospital Discharge instructions Patient Education [...] urethra. Follow these instructions at home: Take geej-xbq-hvdpvbx and prescription medicines only as told by [...] provider. Document Revised: 03/14/2022 Document Reviewed: 03/14/2022 Elsevier Patient Education 2022 engageSimply. Follow Up Care 03/04/2023 09:33:42 With:ASHLEIGH POTTS, Chrissie Bradley, URL Address: [address] [place] [address] [place], [place] [id number]- When: Unknown [facility] 03-09-2024 Note Patient Education Urology Benign [...] Follow these instructions at home: ? Take bpim-mnu-dobsblp and prescription medicines only as told by [...] develop side effec (more content not included)... [facility] 12-12-2023 History of Present illness Narrative Subjective [...] Attestation By signing my name below, I, Aminata Monzon LPN , Scribe attest that this documentation has been prepared [...] discussion and plan. documented in this encounter [facility] Work Phone: 12-12-2023 Instructions Aminata Dickerson LPN [...] as needed only documented in this encounter [facility] Work Phone: 10-24-2023 Miscellaneous Notes would like to follow up 2 months in [place]. Please schedule 1st attempt: Butter Grader contacted patient and informed them that we have received a request to be seen in our clinic for a follow up appointment. Patient stated that they will contact our clinic later to schedule documented in this encounter [facility] 10-24-2023 Telephone encounter Note would like to follow up 2 months in [place]. Please schedule [facility] 10-24-2023 Telephone encounter Note 1st attempt: Butter Grader contacted patient and informed them that we have received a request to be seen in our clinic for a follow up appointment. Patient stated that they will contact our clinic later to schedule [facility] 10-24-2023 History of Present illness Narrative Reason [...] TBI, seizures, learning disability. He has tried uasd-wxe-ieaiiia Tylenol, which she is currently taking on [...] 08/06/2023 Performed by Sherice Flores MD at [facility] EXTRACTION CATARACT INTRAOCULAR LENS Right 07/02/2023 Performed by Sherice Flores MD at [facility] EXPRESS LIPOMA RESECTION 1954 LIPOMA RESECTION 11/2022 scrotum [...] Known Allergies Last Neuro Imaging: Refer to [facility] Objective: BP 126/70 (BP Site: Left Arm, [...] Active Problem List Diagnosis Cerebrovascular accident (CVA) (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 Appears to be a coincidental finding, asymptomatic. Patient seems to have had a right-sided cataract surgery about 3-4 months ago, the afterwards he has been having lmqy-yj-rhcwxmaa severity tension-type headaches around the right temporal/frontal [...] Supportive care. Regular follow-up with PCP and study coordinator Call 911 if symptoms of TIA/Stroke occur. Follow up with me in 3 months. Larissa Bach MD Vascular Neurologist [facility] Neurology ([facility]) I have personally participated in the care of this patient. I have reviewed all pertinent clinical information, including history, physical exam, investigation results and plan. I spent 45 minutes caring for this patient, and more than 50% of that time was spent on counseling the patient/physician assistant certified/care team and coordinating care. Important Notice: This note was created with the assistance of a speech recognition program. While intending to generate a timely document that accurately reflects the content of the encounter, no guarantee can be provided that every grammatical or spelling mistake has been or will be identified or corrected. Thank you for your understanding. documented in this encounter [facility] 10-09-2023 Miscellaneous Notes Recieved a referral for our Stroke Clinic Referral is uploaded into the Media folder in the patients chart. Dx: ISCHEMIC STROKE OF FRONTAL LOBE Referred by: SHAIKH LUIS ALBERTO MD Images from the original note were not included. Patient had MRI brain at [place] that showed CVA. Headache x 3-4mos. Schedule new patient with Dr. Bach. Patient referred to [place] location however extended wait time. Will have him be seen in [place] initially and if follow up needed, can have patient seen in [place] then. Alayna, can you have imaging sent over from [place] please Faxed a request to push over both images and reports. Currently waiting for response. Spoke with patient and made the appt documented in this encounter [facility] 10-09-2023 Telephone encounter Note Recieved a referral for our Stroke Clinic Referral is uploaded into the Media folder in the patients chart. Dx: ISCHEMIC STROKE OF FRONTAL LOBE Referred by: SHAIKH LUIS ALBERTO MD [facility] 10-09-2023 Telephone encounter Note Images from the original note were not included. Patient had MRI brain at [place] that showed CVA. Headache x 3-4mos. Schedule new patient with Dr. Bach. Patient referred to [place] location however extended wait time. Will have him be seen in [place] initially and if follow up needed, can have patient seen in [place] then. Alayna, can you have imaging sent over from [place] please [facility] 10-09-2023 Telephone encounter Note Faxed a request to push over both images and reports. Currently waiting for response. [facility] 10-09-2023 Telephone encounter Note Spoke with patient and made the appt [facility] 09-08-2023 Evaluation note Encounter Date Diagnosis [...] treatment plan. Patient left in stable condition [employer] Other 2023 Evaluation note* Encounter Date Diagnosis Assessment Notes Treatment Notes Treatment Clinical Notes Aug, Diarrhea (ICD-10 - R19.7) Patient reports that he has had some improvement and will continue Levsin as directed, fiber, and probiotic without change RTO 3 months [employer] Other 10-31-2023 Evaluation note* Encounter Date Diagnosis Assessment Notes Treatment Notes Treatment Clinical Notes Jun, Diarrhea (ICD-10 - R19.7) This patient states his diarrhea started about 4 months ago. At it's worst, he was only going once, but he had urgency & was a large amount. The frequency & severity have improved somewhat. He reported to [facility] ER last month. Lab & stool studies [...] colonoscopy. Return visit here in one month [employer] Other 10-01-2023 History general Narrative - Reported* Type Description Date Medical History Hypercholesteremia Surgical History tonsillectomy and adenoidectomy Surgical History lipoma Surgical History colonoscopy Surgical History cataract removal 06/2023 Hospitalization History see above Hospitalization History [place] [facility] for diarrhea 05/2023 [facility] Other 10-01-2023 History general Narrative - Reported* Type Description Date Medical History Hypercholesteremia Medical History diarrhea Surgical History tonsillectomy and adenoidectomy Surgical History lipoma Surgical History colonoscopy Surgical History cataract removal 06/2023 Hospitalization History see above Hospitalization History [place] [facility] for diarrhea 05/2023 [employer] Other 06-26-2023 Hospital Discharge instructions Patient Education [...] Follow these instructions at home: Medicines Take gqch-ymw-eejrzbn and prescription medicines only as told by [...] or the blood stops without treatment. Take uyve-zdi-frytypi and prescription medicines only as told by your health care provider. Drink enough fluid to keep your urine pale yellow. This information is not intended to replace advice given to you by your health care provider. Make sure you discuss any questions you have with your health care provider. Document Revised: 04/26/2021 Document Reviewed: 04/26/2021 Sensorly Patient Education 2022 engageSimply. Follow Up Care 12/21/2022 09:24:19 With:ASHLEIGH POTTS, Chrissie Bradley, URL Address: [address] [place] [address]- When:Within 1 Year(s) [facility] [place] [id number] Hospital Discharge instructions Patient Education 12/21/2022 09:11:46 [...] Follow these instructions at home: Medicines Take fdfg-rpk-dcugeto and prescription medicines only as told by [...] or the blood stops without treatment. Take igzm-izr-drwnyea and prescription medicines only as told by your health care provider. Drink enough fluid to keep your urine clear or pale yellow. This information is not intended to replace advice given to you by your health care provider. Make sure you discuss any questions you have with your health care provider. Document Released: 08/26/2006 Document Revised: 01/20/2020 Document Reviewed: 09/28/2017 Sensorly Patient Education 2020 engageSimply. Follow Up Care 11/29/2022 14:24:46 With:ASHLEIGH POTTS, Chrissie Bradley, URL Address: [facility] [place] [id number]- When:02/20/2023 [facility] 04-11-2023 Evaluation note* Encounter Date Diagnosis Assessment [...] understanding and is agreeable with treatment plan. [employer] Other 03-23-2023 Evaluation + Plan noteExtracted from: Title:SAFIA post op Author:Meek Combs MD Date:11/29/22 Plan Transfer/Discharge: Transfer/Discharge Discharge when meets criteria ( From PACU to Ambulatory Surgery Unit, and To home ). Extracted from: Title:SAFIA GA Author:Meek Combs MD Date:3/23/23 Plan [place] [employer]esthesi[employer] (ASA) physical status classification: Class II. Anesthetic Preoperative Plan: Anesthesia General. Future Appointments Appointment Date:12/21/2022 09:00:00 AM Scheduled Provider:Chrissie STILES MD Location:[place] [facility] Appointment Type:URO Office Visit [facility]03-23-2023 Hospital Discharge instructions Patient Education 11/29/2022 10:49:22 Post Op Patient Instructions - FT (Custom) (Custom) Follow Up Care 10/30/2022 08:14:31 With:CHACHA WHALEY Address: [address] [place] [address] Business (1) When: Unknown Comments:Call for followup appointment with Mindi Whaley PA-C or me within the next 2-3 weeks. Should you haveproblems prior to that visit, please let us know.No shower for two days. Keep scrotal support and ice intermittently for discomfort.Have a great day! [facility]01-31-2023 Hospital Discharge instructions Patient Education 10/09/2022 [...] urethra. Follow these instructions at home: Take czsr-cmk-wxazlwx and prescription medicines only as told by [...] 08/26/2006 Document Revised: 07/21/2019 Document Reviewed: 09/30/2017 Sensorly Patient Education 2020 engageSimply. Follow Up Care 10/05/2022 09:45:41 With:ASHLEIGH POTTS, Chrissie Bradley, URL Address: [facility] [place] [address] [place], [place] [id number]- When: Unknown [facility] [id number] Hospital Discharge instructions Patient Education 01/15/2022 14:02:51 [...] Follow these instructions at home: Medicines Take vmkg-qzt-kytizlj and prescription medicines only as told by [...] or the blood stops without treatment. Take ctdu-jyq-jvpznap and prescription medicines only as told by your health care provider. Drink enough fluid to keep your urine clear or pale yellow. This information is not intended to replace advice given to you by your health care provider. Make sure you discuss any questions you have with your health care provider. Document Released: 08/26/2006 Document Revised: 01/20/2020 Document Reviewed: 09/28/2017 [employer] Patient Education 2019 [employer] Follow Up Care 01/03/2022 11:13:58 With:Mark Torres MD, Chino Leggett, URO Address: [facility] [address] , [place] [address]- When:01/15/2023 [facility] 03-16-2022 NotePROCEDURE: XR SHOULDER LT 2V or > COMPARISON: None. HISTORY: Pain of left shoulder joint FINDINGS: BONES:No acute fracture or dislocation. Moderate acromioclavicular and glenohumeral joint osteoarthropathy with joint space narrowing marginal osteophyte formation. Subchondral cystic change of the glenoid. SOFT TISSUES:Negative. No visible soft tissue swelling. EFFUSION:None visible. OTHER: Negative. IMPRESSION: Moderate osteoarthritis Electronically authenticated by: AQUILES SPAIN Date: 2021-11-22 11:29[facility] Future App[facility]ments Appointment Date:01/21/2023 10:30:00 AM Scheduled Provider:Chino Flores Jr., MD Location:[facility] Appointment Type:URO Office Visit Diagnostic Tests Pending * Urine Cytology ([facility]) 01/15/22 [facility] Evaluation + Plan note Future Appointments Appointment Date:01/21/2023 10:30:00 AM Scheduled Provider:Chino Flores Jr., MD Location:[facility] Appointment Type:URO Office Visit [facility] Evaluation + Plan note Future Appointments Appointment Date:11/29/2022 10:00:00 AM Scheduled Provider: Location:[facility] Appointment Type:Surgery FT Appointment Date:01/21/2023 10:30:00 AM Scheduled Provider:Chino Flores Jr., MD Location:[facility] App[facility]ments Appointment Date:03/04/2023 08:30:00 AM Scheduled Provider:Chrissie STILES MD Location:[facility] Appointment Type:URO Office Visit [facility] [employer] + Plan note Future Appointments Appointment Date:03/09/2024 08:00:00 AM Scheduled Provider:Chrissie STILES MD Location:[facility] Appointment Type:URO Office Visit [facility] [employer] note* Diagnosis Cerebrovascular accident (CVA), unspecified mechanism ([facility]-HCC)- Primary BRITTANY on CPAP Chronic tension-type headache, [...] hazards to health documented in this encounter [facility] Work Phone: Evaluation note* Diagnosis Mixed hyperlipidemia (CMS/HCC)- Primary Mixed hyperlipidemia Gastroesophageal reflux disease without esophagitis Esophageal reflux Chronic migraine without aura without status migrainosus, not intractable (CMS/HCC) Leg cramping Back pain of lumbosacral region with sciatica Sensation of lump in throat Swelling, mass, or lump in head and neck Throat irritation documented in this encounter [facility]* Diagnosis Chronic diarrhea of unknown origin- Primary Diarrhea Gastroesophageal reflux disease without esophagitis Esophageal reflux Hyperlipidemia, unspecified hyperlipidemia type (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/HCC)- Primary 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 persistent headache Chronic migraine without aura without status migrainosus, not intractable (CMS/HCC) H/O: CVA (cerebrovascular accident) Hyperlipidemia, unspecified hyperlipidemia type (CMS/HCC) Hyperlipidemia, unspecified hyperlipidemia type ([facility]/HCC)- Primary 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) Chronic migraine without aura without status migrainosus, not intractable (CMS/HCC) Chronic migraine without aura without status migrainosus, not intractable (CMS/HCC)- Primary Hyperlipidemia, unspecified hyperlipidemia type ([facility]/HCC) Ischemic stroke of frontal lobe (CMS/HCC) Gastroesophageal reflux disease without esophagitis Esophageal reflux 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 persistent headache Mixed hyperlipidemia ([facility]/HCC)- Primary Mixed hyperlipidemia Gastroesophageal reflux disease without [...] of lumbar region documented in this encounter [facility] HealthcareEvaluation note* Diagnosis Chronic diarrhea of unknown origin- Primary Diarrhea Gastroesophageal reflux disease without esophagitis Esophageal reflux Hyperlipidemia, unspecified hyperlipidemia type ([facility]) Encounter for Medicare annual wellness exam 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)- Primary New daily persistent headache Chronic diarrhea of unknown origin Diarrhea Ischemic stroke of frontal lobe ([facility]/HCC)- Primary 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 persistent headache Chronic migraine without aura without status migrainosus, not intractable ([facility]) H/O: CVA (cerebrovascular accident) Hyperlipidemia, unspecified hyperlipidemia type ([facility]) Hyperlipidemia, unspecified hyperlipidemia type ([facility])- Primary 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 persistent headache Ischemic stroke of frontal lobe ([facility]) Chronic migraine without aura without status migrainosus, not intractable ([facility]) Chronic migraine without aura without status migrainosus, not intractable ([facility])- Primary Hyperlipidemia, unspecified hyperlipidemia type ([facility]) Ischemic stroke of frontal lobe ([facility]) Gastroesophageal reflux disease without esophagitis Esophageal reflux 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 persistent headache Mixed hyperlipidemia ([facility])- Primary Mixed hyperlipidemia Gastroesophageal reflux disease without esophagitis Esophageal reflux Chronic migraine without aura without status migrainosus, not intractable ([facility]) Leg cramping Back pain of lumbosacral region with sciatica Sensation of lump in throat Swelling, mass, or lump in head and neck Throat irritation Back pain of lumbosacral region with sciatica- Primary Lumbar foraminal stenosis Degeneration of intervertebral disc of lumbar region with discogenic back pain and lower extremity pain documented in this encounter [facility] HealthcareEvaluation note* Diagnosis Chronic diarrhea of unknown origin- Primary Diarrhea Gastroesophageal reflux disease without esophagitis Esophageal reflux Hyperlipidemia, unspecified hyperlipidemia type ([facility]) Encounter for Medicare annual wellness exam NDPH [...] hyperlipidemia type (CMS/HCC) Hyperlipidemia, unspecified hyperlipidemia type (CMS/HCC)- Primary 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) Chronic migraine without aura without status migrainosus, not intractable (CMS/HCC) Chronic migraine without aura without status migrainosus, not intractable (CMS/HCC)- Primary Hyperlipidemia, unspecified hyperlipidemia type (CMS/HCC) Ischemic stroke of frontal lobe (CMS/HCC) Gastroesophageal reflux disease without esophagitis Esophageal reflux 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 persistent headache Mixed hyperlipidemia (CMS/HCC)- Primary Mixed hyperlipidemia Gastroesophageal [...] discogenic back pain and lower extremity pain Ischemic stroke of frontal lobe (CMS/HCC) documented in this encounter [facility] Narrative - Reported* Type Description Date Medical History Hypercholesteremia Surgical History tonsillectomy and adenoidectomy Surgical History lipoma Surgical History colonoscopy Hospitalization History see above clipkit Other Hospital course Narrative No data available for this section [facility] Hospital Discharge instructions No data available for this section [facility] filed[facility]ed [facility] this [facility] filedocumented in this [facility] No data available for this section [facility] Summary Purpose Family History No Family [...] years the last of which was in [place] 2 and half years ago which was [...] I will retrieve the stress test from [place]. Patient is considered low risk for the [...] Contact Diagnoses Cerebrovascular accident (CVA), unspecified mechanism ([facility]-HCC) Cerebrovascular accident within last 3 months Procedures Echo complete W/O contrast Larissa Bach MD [address] [place] [address], [address] [place] [address] [place] [address] [place] [address] Phone: [phone] Referral ID Status Reason Start Date Expiration Date V isits Requested Visits Authorized [id number] Pending Review 10/24/2023 10/23/2024 1 1 Specialty Diagnoses / Procedures Referred By Contac t Referred To Contact Radiology Diagnoses Cerebrovascular accident (CVA), unspecified mechanism (CMS-HCC) Procedures CT angiogram carotid Larissa Bach MD [address] [place] [address], [address] [place] [address] [place] [address] [place] [address] Phone: [phone] Referral ID Status Reason Start Date Expiration Date V isits Requested Visits Authorized [id number] Pending Review 10/24/2023 10/23/2024 1 1 Specialty Diagnoses / Procedures Referred By Contac t Referred To Contact Radiology Diagnoses Cerebrovascular accident (CVA), unspecified mechanism ([facility]-HCC) Procedures CT angiogram head Larissa Bach MD [address] [place] [address], [address] [place] [address] [place] [address] [place] [address] Phone: [phone] Referral ID Status Reason Start Date Expiration Date V isits Requested Visits Authorized [id number] Pending Review 10/24/2023 10/23/2024 1 1 Additional Source Comments Patient Care team informatio n (unrecognized section and content) Narcotics And/Or Vice Detective Relationship Specialty Start Date End Date Shaikh Poole MD [facility] [place] [address] PCP - General Internal Medicine 07/02/23 Narcotics And/Or Vice Detective Relationship Specialty Start Date End Date Shaikh Poole MD [address] [place] [address] PCP - General Internal Medicine 07/02/23 Narcotics And/Or Vice Detective Relationship Specialty Start Date End Date Shaikh Poole MD [address] [address] PCP - General Internal Medicine 07/02/23 Narcotics And/Or Vice Detective Relationship Specialty Start Date End Date Shaikh Poole MD [address] [place] [address] PCP - General Internal Medicine 11/05/23 Narcotics And/Or Vice Detective Relationship Specialty Start Date End Date Stevenson Eckert MD [address] [place] [phone] PCP - General Family Medicine 05/19/24 Stacey Vaughn NP [address] [place] [address] Nurse Practitioner Family Medicine 05/19/24 Narcotics And/Or Vice Detective Relationship Specialty Start Date End Date Stevenson Eckert MD [address] [place] [address] PCP - General Family Medicine 05/19/24 Stacey Vaughn NP [address] [place], [place] [address] Nurse Practitioner Family Medicine 05/19/24 Narcotics And/Or Vice Detective Relationship Specialty Start Date End Date Stevenson Eckert MD [address] [place], [place] [address] PCP - General Family Medicine 05/19/24 Stacey Vaughn NP [address] [place], [place] [address] Nurse Practitioner Family Medicine 05/19/24 Narcotics And/Or Vice Detective Relationship Specialty Start Date End Date Stevenson Eckert MD [address] [place], [place] [address] PCP - General Family Medicine 05/19/24 Stacey Vaughn NP [address] [place] [address] Nurse Practitioner Family Medicine 05/19/24 Narcotics And/Or Vice Detective Relationship Specialty Start Date End Date Stevenson Eckert MD [address] [place], [place] [id number] PCP - General Family Medicine 05/19/24 Stacey Vaughn NP [address] [place] [address] Nurse Practitioner Family Medicine 05/19/24 Narcotics And/Or Vice Detective Relationship Specialty Start Date End Date Stevenson Eckert MD [address] [place] [address] PCP - General Family Medicine 05/19/24 Stacey Vaughn NP [address] [place] [address] Nurse Practitioner Family Medicine 05/19/24 (unrecognized sect ion and content) No Status Records FoundNo Status Records FoundNo Status Records FoundNo Status Records FoundNo Status Records FoundNo Status Records FoundNo Status Records FoundNo Status Records Found INFORMATION SOURCE (unrecogn ized section and content) DATE CREATED AUTHOR 10/18/2022 [facility] DATE CREATED AUTHOR AUTHOR'S ORGANIZ ATION 11/22/2022 [employer] DATE CREATED AUTHOR AUTHOR'S ORGANIZ ATION 12/16/2022 [facility] DATE CREATED AUTHOR AUTHOR'S ORGANIZ ATION 10/26/2023 [facility] DATE CREATED AUTHOR AUTHOR'S ORGANIZ ATION 11/29/2023 [facility] DATE CREATED AUTHOR AUTHOR'S ORGANIZ ATION 03/11/2024 [facility] DATE CREATED AUTHOR AUTHOR'S ORGANIZ ATION 07/11/2024 [facility] EP[facility] DATE CREATED AUTHOR AUTHOR'S ORGANIZ ATION 07/28/[address] [facility] REASON FOR VISIT (unrecogniz ed section and [...] for about a week Reason Comments Follow-up Reason Onset Date Comments Med Refill 07/14/2024 FOR RECORDS PERTAINING TO PATIENTS WHO ARE [...] BE BASED ON THE PRIMARY CLINICAL RECORDS. [employer] provides no warranty or guarantee of the accuracy or completeness of information in this document.
[2024-08-03 10:33] VITALS: BP 126/72; PULSE 68; TEMP 37.1; O2SAT 97
[2024-08-03 11:04] VITALS: BP 137/64; PULSE 67; O2SAT 96
[2024-08-03 11:05] VITALS: BP 133/63; PULSE 81; O2SAT 96
--- NOTE | 2024-08-03 11:05 | W.PM.PROCNOT ---
Date of procedure: 08/03/24 Pre-op diagnosis: Pain due to right sacroiliitis Post-op diagnosis: same as pre-op Procedure: Procedure: Right sacroiliac joint injection Medications: Bupivacaine 0.25% 3cc, kenalog 40mg After informed consent was obtained, the patient was brought to the medical procedure unit and placed in the prone position, when a timeout was completed verifying correct patient, procedure, site, positioning, implant, and/or special equipment.? The skin overlying the area was prepped and draped in standard sterile fashion using alcohol.? A 25-gauge needle was inserted towards the right sacroiliac joint under direct fluoroscopic imaging.? Needle tip was advanced until the joint was encountered.? We instilled a total of 2 mL of solution.? Postoperatively needles were removed.? The patient tolerated the procedure well without complication.? The patient reported reduction in pain symptoms postoperatively. Anesthesia: Local Surgeon: James Vyas Pathology: none sent Condition: stable Disposition: no change
[2024-08-03] MEDS: BUPIVACAINE HCL 0.25% PF 25 MG/10 ML VIAL 2 ML INJ (11:07)
[2024-08-03] MEDS: TRIAMCINOLONE ACETONIDE 40 MG/ML VIAL INJ (11:07)
[2024-08-03] MEDS: IOHEXOL 240 MG/ML - 10 ML VIAL 12 MG INJ (11:07)
[2024-08-03] MEDS: LIDOCAINE HCL 2% 400 MG/20 ML MDV INJ (11:08)
== END 2024-08-03 11:10 | disposition home or self-care (01) ==
LOC: SURGOUT 10:10
PROVIDERS: Visit Provider Anesthesiology
DX: M46.1 Sacroiliitis, not elsewhere classified (principal)
CPT/HCPCS: 27096; J0665; J3301; Q9966

== ENCOUNTER 2024-08-12 11:35 | Outpatient (OUT) | payer MEDICARE, OTHER, SELFPAY ==
--- NOTE | 2024-08-12 11:53 | PM.CN ---
Consult Note: HPI Data of Consult Patient: known to practice within the last 3 years Consult date: 07/13/24 Requesting Physician: Alva Etienne NP Primary Care Provider: STACEY STERN Consult Narrative Reason for consult: low back, right leg pain Narrative: 83yom who presents for evaluation. longstanding low back history, pain recently getting worse into right leg. lumbar imaging consistent with multilevel severe spondylosis and stenosis. has engaged in a series of provider directed home exercises >6 weeks, without lasting benefit. uses otc pain meds as needed. denies adverse med side effects. recent right L3-4 L4-5 TFESI providing 70% improvement ongoing as well as right SIJ injection with 100%. cc:: CC: Alva Etienne NP Review of Systems ROS Status of ROS 10 or more systems reviewed and unremarkable except as noted in history and below PFSH [facility] Medical History CVA (cerebral vascular accident) ?I63.9 - Cerebral infarction, unspecified (ICD-10) Enlarged prostate ?N40.0 - Benign prostatic hyperplasia without lower urinary tract symptoms (ICD-10) High cholesterol ?E78.00 - Pure hypercholesterolemia, unspecified (ICD-10) Surgical History History of cataract extraction ?Z98.49 - Cataract extraction status, unspecified eye (ICD-10) S/P excision of lipoma ?Z98.890 - Other specified postprocedural states (ICD-10) ?Z86.018 - Personal history of other benign neoplasm (ICD-10) Social History Smoking status: Never smoker Meds Home Medications and Allergies Home Medications ?Medication ?Instructions ?Recorded ?Confirmed ?Type dicyclomine 20 mg tablet 20 mg PO TID PRN abdominal pain #7 05/20/23 08/03/24 Rx tabs aspirin 81 mg capsule 81 mg PO DAILY 07/13/24 08/03/24 History atorvastatin 20 mg tablet 20 mg PO DAILY 07/13/24 08/03/24 History naproxen 250 mg tablet 250 mg PO BID PRN pain 07/13/24 08/03/24 History omeprazole 20 mg capsule,delayed 20 mg PO DAILY 07/13/24 08/03/24 History release Allergies Allergy/AdvReac Type Severity Reaction Status Date / Time No Known Drug Allergies Allergy Verified 08/03/24 10:34 Exam Narrative Exam Narrative: Psych-alert and oriented x 3. Attentive and appropriate, constitutionally normal, displays normal mood and affect per situation. There are no obvious deficits in memory, reasoning, or intellect.? Skin-no obvious rashes, bruising, erythema noted to the patient's area of pain.? Extremities- extremities are warm with minimal edema and palpable pulses. Lumbar-tenderness to palpation noted in the lumbar spine and paraspinal musculature. Pain is not elicited with flexion, extension, and lateral rotation of the lumbar spine. Range of motion is diminished with these motions. Facet loading maneuvers are negative.? right sij negative marcia(patricks), gaenslens, thigh thrust, compression test Strength-noted to be unremarkable Sensory-no notable sensory deficits in the bilateral lower extremities to touch or pinprick in all dermatomal distributions Coordination remains intact.? Gait remains non-antalgic. Results Additional Findings Additional findings: If on a controlled substance or opioids, I have checked an [place] report on this patient and there are no aberrancies noted in the prescribing history.??If on a controlled substance or opioid a drug screen was completed and reviewed within the last year, and if there has not been a drug screen completed we ordered one today to monitor higher risk, state monitored pain medication use. As part of providing excellent, safe, comprehensive care, the following was completed at our patient's visit: 1. A medication reconciliation and review to ensure accurate knowledge of current/active medications, including asking our patients to inform us about any [id number] medications or herbal remedies/nutritional supplements/alternative remedies. 2. A review to specifically ensure our patients have had annual screening for screening for depression, screening for tobacco use, and screening for unhealthy alcohol use. For concerning screenings had a discussion with the patient, provided patient education, and recommended follow-up with primary care provider when appropriate. If patient noted with a risk of falling, they received education on strength, gait, and balance training to prevent future risk of falling. Assessment and Plan Assessment and Plan (1) Sacroiliac joint dysfunction: (2) Lumbar stenosis with neurogenic claudication: Plan pain well controlled with interventional therapy, no longer utilizing heat/ice or NSAIDs continue HEP as tolerated f/u PRN
--- OUTSIDE RECORDS SUMMARY | 2024-08-12 11:57 | XMS_ITS | CCD ---
Author Organization [facility] Care Team Providers Care Neurology Director Name Role Phone Antoni Cho Primary Care Physician [phone] ASHLEIGH, DR CHRISSIE Bradley Admitting Unavailable ASHLEIGH, DR CHRISSIE Bradley Attending Unavailable TAMMIE, DR CARRILLO Primary Care Unavailable STORRS MANSFIELD, DR CHRISSIE Bradley Consulting Unavailable NEFCY, JERMAIN Consulting Unavailable MERLIN, DR CARRILLO Admitting Unavailable MERLIN, DR CARRILLO Attending Unavailable MERLIN, DR CARRILLO Primary Care Unavailable DETROIT, DR AQUILES Lee Consulting Unavailable MERLIN, DR CARRILLO Consulting Unavailable MERLIN, DR CARRILLO Admitting Unavailable MERLIN, DR CARRILLO Attending Unavailable MERLIN, DR CARRILLO Primary Care Unavailable MERLIN, DR CARRILLO Consulting Unavailable NARDINI, KINA Consulting Unavailable Antoni Cho Unavailable Unavailable Unavailable Tammie, Dr. Antoni Howell Primary Care Unava ilable Tammie, Dr. Antoni Howell Primary Care Unava ilable Taryn Real Referring Unavailable Taryn Real Attending Unavailable Jeannie Mclean Unavailable Jama King Unavailable Shaikh Poole MD Primary Care Provider [phone] SHAIKH POOLE Referring Unavailable SHAIKH POOLE Primary [...] Stevenson Eckert MD Primary Care Provider Johana COMPREHENSIVE ADVISOR, Stacey Unavailable [phone] SHAIKH POOLE Attending Unavailable SHAIKH POOLE Attending Unavailable LUIS ALBERTO, Attending Unavailable SHAIKH POOLE Attending Unavailable STACEY VAUGHN Attending Jethro e STACEY VAUGHN Attending Jethro Vyas MD, James Gonsalez Attending Unavailable Asael POTTS, James Gonsalez Attending Unavailable Asael POTTS, James Gonsalez Attending Unavailable Allergies Allergy Classification Reported Allergen(s) Allergy Type Date of Onset Reaction(s) Facility (1 source) No Known Medication Allergies; Translations: [No Known Medication Allergies] Propensity to adverse reactions (disorder) [facility] Repository Medications Current Medications Medication Drug Class(es) Dates Sig (Normalized) Sig (Original) acetaminophen 325 mg / HYDROcodone bitartrate 5 mg oral tablet (1 source) Opioid Agonist Start: 11-29-2022 End: 12-01-2022 acetaminophen-hyd rocodone 325 mg-5 mg oral tablet 1 tab(s), Oral, q4hr Pain for 2 day(s), 7 tab(s), Refill(s) 0, [id number], 170, cm, 11/16/22 11:51:00 EST, Height/Length Dosing, 85, kg, 11/16/22 11:51:00 EST, Weight Dosing Start Date: 11/29/22 Stop Date: 12/01/22 Status: Ordered [id number] 200 actuat albuterol 0.09 mg/actuat metered dose [...] # 10 cap(s), Refills(s) 0, [facility]acy: [id number], 170, cm, 11/16/22 11:51:00 EST, Height/Length Dosing, [...] procedure., # 2 tab(s), Refills(s) 0, [facility] [address], 170, cm, 01/02/22 9:19:00 EDT, Height/Length [...] with Chrissie SOTELO MD, URL When: Where: [facility] [address] [place] [id number]- Medications What How Much When Instructions [...] to shrin (more content not included)... Normal [facility] Urology Office/Clinic Noteon 03-09-2024 Urology Office/Clinic [...] With When Contact Information ASHLEIGH POTTS, Chrissie P, URL [address] [place] [id number]- Additional Instructions: PRN Patient Education Benign Prostatic Hyperplasia I, Lana Lancaster, personally scribed for Dr. Sotelo on 03/09/2024 08:22:31. . Documentation recorded by the scribe, Lana Lancaster, accurately reflects the services(s) I performed and decisions made by me. Authenticated by Dr. Sotelo on 03/09/2024 08:23:21. Portions of this record may have been created with voice recognition artificial intelligence software, specifically [employer], [employer] and or [employer]. Substitutions may have occurred due to the [...] Denies Tobacco (more content not included)... Normal [facility] Comment on above: Result Comment: Elec [...] Automated exposure control was utilized. The [place] Symptomatic Carotid Endarterectomy Trial (NASCET)calculation of ICA [...] Sheldon MD on 11/28/2023 12:17 PM Normal [facility] CT CTA HEADon 11-28-[address] CTA HEAD History: Cerebrovascular accident (CVA), unspecified mechanism ([facility]) Procedure: CT CTA HEAD Multidetector CT angiogram performed with IV contrast through the [place] using 3 -D Maximum intensity [...] aneurysm or major vessel occlusion of the [place], within limitations of CT. Flow is demonstrated within the vertebral arteries, basilar artery, bilateral posterior cerebral arteries, middle cerebral arteries and anterior cerebral arteries. 3D reformatted images confirm the source data findings. IMPRESSION: * Unremarkable CT angiogram [place]. * If you have high clinical suspicion for occult process such as an infarct consider CT perfusion and brain MRI. 0 Finalized by Mckay Sheldon MD on 11/28/2023 12:33 PM Normal [facility] COVID + FLU Quick Testingon 09-08-2023 SARS-CoV-2 (COVID-19) RNA RANDALL+probe Ql (Unsp spec) Negative [employer] Other COVID + FLU Quick Testing Positive [employer] Other COVID + FLU Quick Testing Negative [employer] Other Office Visit (Cardiology)on 11-21-2022 Follow-up visit [...] Former smoker Tobacco Use Screening; Status:Complete; Done: [id number] Patient Instructions Please bring all medicines, vitamins, [...] up in 1 year. Retrieve stress from [place] The provider reviewed the following test(s) and result(s) with the patient: ECG Risk Assessment Studies: Surgical Clearance:1 STEVE DE LEON is cleared to proceed with surgery1 . 1 Amended By: Mely De Oliveira; Nov 21 2022 11:05 AM ESTChief Complaint STEVE DE LEON is being seen for POC Dr. oStelo Scrotal xploratory, remove lipomas. 81-year-old white male [...] years the last of which was in [place] 2 and half years ago which was [...] I will retrieve the stress test from [place]. Patient is considered low risk for the [...] Vital Signs Recorded: 21Nov2022 10:36AMRecorded: 21Nov2022 10:34AM Thiucmhz318, LUE, Lplrzmw969, RUE, Sitting Dxnslulic86, LUE, Jlryipi74, RUE, Sitting Heart Rate67, Apical Height5 ft 7 in Rmtlbf117 lb BMI Cimswkumxe04.98 kg/m2 BSA Calculated1.96 Tobacco Useb) No PHQ-2 [...] no masses (more content not included)... Normal [employer] Tobacco Screening.on 023 Adult depression screening assessment No [facility] 250 DO Work Phone: Fall risk assessment a) No falls within the last year [facility] 250 DO Work Phone: Tobacco use status CP b) No [facility] 250 DO Work Phone: CHEMISTRYOrdered [...] 1.1 mg/dL Normal 0.5 - 1.3 mg/dL [facility] Remisol GFR/1.73 sq M.predicted among blacks MDRD (S/P/Bld) [Vol rate/Area] mL/min/1.73 m2 Normal >=59mL/min/1 .73 m2 [facility] Chem S GFR/1.73 sq M.predicted among non-blacks MDRD (S/P/Bld) [Vol rate/Area] mL/min/1.73 m2 Normal >=59mL/min/1 .73 m2 [facility] Chem S Glucose [Mass/Vol] 73 mg/dL Normal [...] AM) Normal Negative [facility] UA Auto SS Amity.plasma/Amity .RBC (Bld) [Mass ratio] 0-3 /HPF Normal [...] Desc Clean Catch (11/16/22 9:55 AM) Normal [facility] Auto SS Urobilinogen Qn (U) [id number] {Jaleel'U}/dL Normal 0.0 - 1.0 EU/dL [facility] UA Auto SS WBC Auto Ql (U) Negative (11/16/22 9:55 AM) Normal Negative [facility] UA Auto SS WBC LM.HPF (Urine sed) [#/Area] 0-5 /HPF Normal 0-5/HPF [facility] UA Auto SS US SCROTUMon 10-17-2022 [place] [...] by: JERMAIN BROWN Date: 2022-10-17 15:11 Normal [facility] CT ABD/PELV W CONon 12-03-19 22 [...] KINA MAHMOOD Date: 2021-12-02 08:29 Normal [facility] [place] [facility] CBC AUTO DIFFon 11-22-2021 BASO # 0.0 103/ul Normal 0.0-0.1 [facility] Comment on above: Performed By: #### C BC #### [facility] [place] [facility] [address] [address] [address] Ever Kenny Basophils/100 WBC (Bld) 0.2 % Normal 0.2-2.0 [facility] Comment on above: Performed By: #### C BC #### [facility] [place] [facility] [address] [place], [place] [address] Dr. Ever Kenny EO # 0.3 103/ul Normal 0.0-0.7 [facility] Comment on above: Performed By: #### C BC #### [facility] [place] [facility] [address] [place] [address] Dr. Ever Kenny Eosinophils/100 WBC (Bld) 5.5 % Normal 0.9-7.0 [facility] Comment on above: Performed By: #### C BC #### [facility] [place] [facility] [address] [place] [address] Dr. Ever Kenny Erythrocyte distribution width (RBC) [Ratio] 12.8 % Normal 11.0-15.0 [facility] Comment on above: Performed By: #### C BC #### [facility] [place] [facility] [address] [place] [address] Dr. Ever Kenny Hematocrit (Bld) [Volume fraction] 47.1 % Normal 42.0-54.0 [facility] Comment on above: Performed By: #### C BC #### [facility] [place] [facility] [address] [place] [address] Dr. Ever Kenny Hemoglobin (Bld) [Mass/Vol] 15.2 g/dL Normal 14.0-18.0 [facility] Comment on above: Performed By: #### C BC #### [facility] [place] [facility] [address] [place] [address] Dr. Ever Kenny IG # 0.03 10e3/ul Normal 0.00-0.03 [facility] Comment on above: Performed By: #### C BC #### [facility] [place] [facility] [address] [place] [address] Dr. Ever Kenny IG % 0.5 % Normal 0.0-0.5 [facility] [place] [facility] Comment on above: Performed By: #### C BC #### [facility] [place] [facility] [address] [place] [address] Dr. Ever Kenny LYMPH # 1.7 103/ul Normal 1.2-3.8 [facility] [place] [facility] Comment on above: Performed By: #### C BC #### [facility] [place] [facility] [address] [place] [address] Dr. Ever Kenny Lymphocytes/100 WBC (Bld) 26.9 % Normal 20.5-60.0 [facility] Comment on above: Performed By: #### C BC #### [facility] [place] [facility] [address] [address] [address] Ever Kenny MANUAL DIFF REQ NO Normal [facility] Comment on above: Performed By: #### C BC #### [facility] [place] [facility] [address] [place] [address] Dr. Ever Kenny MCH (RBC) [Entitic mass] 31.6 pg Normal 25.9-34.0 [facility] Comment on above: Performed By: #### C BC #### [facility] [place] [facility] [address] [place] [address] Dr. Ever Kenny MCHC (RBC) [Mass/Vol] 32.3 g/dL Normal 29.9-35.2 [facility] [place] [facility] Comment on above: Performed By: #### C BC #### [facility] [place] [facility] [address] [place] [address] Dr. Ever Kenny MCV (RBC) [Entitic vol] 97.9 fL Critically high 80.0-94.0 [facility] Comment on above: Performed By: #### C BC #### [facility] [place] [facility] [address] [place] [address] Dr. Ever Kenny MONO # 0.7 103/ul Normal 0.3-0.8 [facility] Comment on above: Performed By: #### C BC #### [facility] [place] [facility] [address] [place] [address] Dr. Ever Kenny Monocytes/100 WBC (Bld) 11.1 % Normal 1.7-12.0 [facility] [place] [facility] Comment on above: Performed By: #### C BC #### [facility] [place] [facility] [address] [place] [address] Dr. Ever Kenny NEUT # 3.4 103/ul Normal 1.4-6.5 [facility] [place] [facility] Comment on above: Performed By: #### C BC #### [facility] [place] [facility] [address] [place] [address] Dr. Ever Kenny Neutrophils/100 WBC (Bld) 55.8 % Normal 43.0-75.0 [facility] [place] [facility] Comment on above: Performed By: #### C BC #### [facility] [place] [facility] [address] [address] [address] Ever Kenny Platelet mean volume (Bld) [Entitic vol] 9.2 fL Critically low 9.5-13.5 [facility] Comment on above: Performed By: #### C BC #### [facility] [place] [facility] [address] [address] [address] Ever Kenny PLT 222 103/ul Normal 150-450 [facility] [place] [facility] Comment on above: Performed By: #### C BC #### [facility] [place] [facility] [address] [address] [address] Ever Kenny RBC 4.81 106/ul Normal 4.70-6.10 [facility] Comment on above: Performed By: #### C BC #### [facility] [place] [facility] [address] [place] [address] Dr. Ever Kenny WBC 6.1 103/ul Normal 4.0-11.0 [facility] Comment on above: Performed By: #### C BC #### [facility] [place] [facility] [address] [address] [address] Ever Kenny LIPID PROFILEon 11-22-2021 CHOL-HDL RATIO NORM SEE BELOW Normal [facility] Comment on above: Result Comment: 3.3 - 4.4 LOW RISK 4.4 - 7.1 AVERAGE RISK 7.1 - 11.0 MODERATE RISK >11.0 HIGH RISK Performed By: #### L IPID, CMP #### [facility] [place] [facility] [address] [place] [address] Dr. Ever Kenny Cholesterol [Mass/Vol] 206 mg/dL Critically high <=200 [facility] [place] [facility] Comment on above: Performed By: #### L IPID, CMP #### [facility] [place] [facility] [address] [address] [address] Ever Kenny Cholesterol in HDL [Mass/Vol] 57 mg/dL Normal [facility] Comment on above: Performed By: #### L IPID, CMP #### [facility] [place] [facility] [address] [address] [address] Ever Kenny Cholesterol in LDL [Mass/Vol] 129.4 mg/dL Normal [facility] Comment on above: Performed By: #### L IPID, CMP #### [facility] [place] [facility] [address] [address] [address] Ever Kenny Cholesterol.total/Chol esterol in HDL [Mass ratio] 3.6 {ratio} Normal [facility] Comment on above: Performed By: #### L IPID, CMP #### [facility] [place] [facility] [address] [place] [address] Dr. Ever Kenny HDL NORMAL > or = 60 mg/dl - LOW CARDIOVASCULAR RISK <40 mg/dl - HIGH CARDIOVASCULAR RISK Normal [facility] Comment on above: Performed By: #### L IPID, CMP #### [facility] [place] [facility] [address] [address] [address] Ever Kenny LDL CALC NORMAL SEE BELOW Normal [facility] Comment on above: Result Comment: <100 mg/dl OPTIMAL 100 - 129 mg/dl NEAR OR ABOVE OPTIMAL 130 - 159 mg/dl BORDERLINE HIGH 160 - 189 mg/dl HIGH >190 mg/dl VERY HIGH Performed By: #### L IPID, CMP #### [facility] [place] [facility] [address] [place] [address] Dr. Ever Kenny Triglyceride [Mass/Vol] 98 mg/dL Normal <=150 [facility] Comment on above: Performed By: #### L IPID, CMP #### [facility] [place] [facility] [address] [place] [address] Dr. Ever Kenny VLDL CALC 19.6 mg/dL Normal [facility] Comment on above: Performed By: #### L IPID, CMP #### [facility] [place] [facility] [address] [address] [address] Ever Kenny PROF 14(COMP METB)on 022 Albumin [Mass/Vol] 3.9 g/dL Normal 3.5-5.0 [facility] Comment on above: Performed By: #### L IPID, CMP #### [facility] [place] [facility] [address] [place] [address] Dr. Ever Kenny Albumin/Globulin [Mass ratio] 1.3 {ratio} Normal [facility] Comment on above: Performed By: #### L IPID, CMP #### [facility] [place] [facility] [address] [address] [address] Ever Kenny ALP [Catalytic activity/Vol] 52 U/L Normal 38-126 [facility] Comment on above: Performed By: #### L IPID, CMP #### [facility] [place] [facility] [address] [address] [address] Ever Kenny ALT [Catalytic activity/Vol] 24 U/L Normal 21-72 [facility] Comment on above: Performed By: #### L IPID, CMP #### [facility] [place] [facility] [address] [address] [address] Ever Kenny Anion gap [Moles/Vol] 9.8 mmol/L Normal [facility] Comment on above: Performed By: #### L IPID, CMP #### [facility] [place] [facility] [address] [place] [address] Dr. Ever Kenny AST [Catalytic activity/Vol] 15 U/L Critically low 17-59 [facility] Comment on above: Performed By: #### L IPID, CMP #### [facility] [place] [facility] [address] [place] [address] Dr. Ever Kenny Bilirubin [Mass/Vol] 0.7 mg/dL Normal 0.2-1.3 [facility] [place] [facility] Comment on above: Performed By: #### L IPID, CMP #### [facility] [place] [facility] [address] [address] [address] Ever Kenny Calcium [Mass/Vol] 8.8 mg/dL Normal 8.4-10.2 [facility] Comment on above: Performed By: #### L IPID, CMP #### [facility] [place] [facility] [address] [address] [address] Ever Kenny Chloride [Moles/Vol] 106 mmol/L Normal 98-107 [facility] [place] [facility] Comment on above: Performed By: #### L IPID, CMP #### [facility] [place] [facility] [address] [address] [address] Ever Kenny CO2 [Moles/Vol] 29.5 mmol/L Normal 22.0-30.0 [facility] Comment on above: Performed By: #### L IPID, CMP #### [facility] [place] [facility] [address] [address] [address] Ever Kenny Creatinine [Mass/Vol] 1.05 mg/dL Normal 0.66-1.25 [facility] Comment on above: Performed By: #### L IPID, CMP #### [facility] [place] [facility] [address] [address] [address] Ever Kenny EGFR-AF [facility] >60 Normal >=60 [facility] Comment on above: Performed By: #### L IPID, CMP #### [facility] [place] [facility] [address] [address] [address] Ever Kenny EGFR-NON AF [facility] >60 Normal >=60 [facility] Comment on above: Performed By: #### L IPID, CMP #### [facility] [place] [facility] [address] [address] [address] Ever Kenny Globulin (S) [Mass/Vol] 2.9 g/dL Normal [facility] Comment on above: Performed By: #### L IPID, CMP #### [facility] [place] [facility] [address] [address] [address] Ever Kenny Glucose [Mass/Vol] 105 mg/dL Normal 74-106 [facility] Comment on above: Performed By: #### L IPID, CMP #### [facility] [place] [facility] [address] [address] [address] Ever Kenny Potassium [Moles/Vol] 4.3 mmol/L Normal 3.4-5.0 [facility] Comment on above: Performed By: #### L IPID, CMP #### [facility] [place] [facility] [address] [address] [address] Ever Kenny Protein [Mass/Vol] 6.8 g/dL Normal 6.1-8.2 [facility] Comment on above: Performed By: #### L IPID, CMP #### [facility] [place] [facility] [address] [address] [address] Ever Kenny Sodium [Moles/Vol] 141 mmol/L Normal 137-145 [facility] Comment on above: Performed By: #### L IPID, CMP #### [facility] [place] [facility] [address] [address] [address] Ever Kenny Urea nitrogen [Mass/Vol] 19.0 mg/dL Normal 9.0-20.0 [facility] Comment on above: Performed By: #### L IPID, CMP #### [facility] [place] [facility] [address] [address] [address] Ever Kenny Urea nitrogen/Creatinine [Mass ratio] 18.1 mg/mg Normal [facility] Comment on above: Performed By: #### L IPID, CMP #### [facility] [place] [facility] [address] [address] [address] Ever Kenny UA (CLEAN/CATCH) MICROSCOPIC IF INDICATEon 11-22-2021 Bilirubin Ql (U) Negative Normal NEGATIVE [facility] Comment on above: Performed By: #### U FAIZA RICHICRO #### [facility] [place] [facility] [address] [place] [address] Dr. Ever Kenny Clarity (U) CLEAR Normal CLEAR [facility] Comment on above: Performed By: #### FAIZA WARRENICRO #### [facility] [place] [facility] [address] [place] [address] Dr. Ever Kenny Color (U) LT. YELLOW Normal YELLOW [facility] Comment on above: Performed By: #### FAIZA WARRENICRO #### [facility] [place] [facility] [address] [place] [address] Dr. Ever Kenny Glucose Ql (U) Negative Normal NEGATIVE [facility] Comment on above: Performed By: #### U FAIZA RICHICRO #### [facility] [place] [facility] [address] [place] [address] Dr. Ever Kenny Hemoglobin Ql (U) MODERATE Abnormal NEGATIVE [facility] Comment on above: Performed By: #### FAIZA WARRENICRO #### [facility] [place] [facility] [address] [place] [address] Dr. Ever Kenny Ketones Ql (U) Negative Normal NEGATIVE [facility] Comment on above: Performed By: #### U SUSHIL RICHRO #### [facility] [place] [facility] [address] [place] [address] Dr. Ever Kenny LEUKOCYTES Negative Normal NEGATIVE [facility] [place] [facility] Comment on above: Performed By: #### SUSHIL WARRENRO #### [facility] [place] [facility] [address] [place] [address] Dr. Ever Kenny Nitrite Ql (U) Negative Normal NEGATIVE [facility] Comment on above: Performed By: #### SUSHIL WARRENRO #### [facility] [place] [facility] [address] [place] [address] Dr. Ever Kenny pH (U) 7.0 [pH] Normal 5-9 [facility] [place] [facility] Comment on above: Performed By: #### PARKER WARREN #### [facility] [place] [facility] [address] [place] [address] Dr. Ever Kenny SPEC GRAVITY 1.010 Normal 1.005-<=1.02 5 [facility] Comment on above: Performed By: #### PARKER WARREN #### [facility] [place] [facility] [address] [place] [address] Dr. Ever Kenny UA PROTEIN Negative Normal NEGATIVE/ TRACE [facility] [place] [facility] Comment on above: Performed By: #### PARKER WARREN #### [facility] [place] [facility] [address] [place] [address] Dr. Ever Kenny UR MICRO IND INDICATED Normal [facility] [place] [facility] Comment on above: Performed By: #### PARKER WARREN #### [facility] [place] [facility] [address] [place] [address] Dr. Ever Kenny Urobilinogen Qn (U) 0.2 {Jaleel'U}/dL Normal 0.2 - 1. 0 [facility] Comment on above: Performed By: #### PARKER WARREN #### [facility] [place] [facility] [address] [place] [address] Dr. Ever Kenny URINE MICROSCOPIC ONLYon BACTERIA NONE SEEN Normal NONE SEEN [facility] [place] [facility] Comment on above: Performed By: #### PARKER WARREN #### [facility] [place] [facility] [address] [place] [address] Dr. Ever Kenny Bacteria identified Cx Nom (U) NOT INDICATED Normal [facility] [place] [facility] Comment on above: Performed By: #### U ARMVERONICAR UMICRO #### [facility] [place] [facility] [address] [place] [address] Dr. Ever Kenny CAST NONE SEEN Normal NONE SEEN [facility] Comment on above: Performed By: #### U ARMICR, UMICRO #### [facility] [place] [facility] [address] [place] [address] Dr. Ever Kenny Crystals LM Nom (Urine sed) NONE SEEN Normal NONE SEEN [facility] [place] [facility] Comment on above: Performed By: #### U ARMICR, UMICRO #### [facility] [place] [facility] [address] [place] [address] Dr. Ever Kenny Epithelial cells LM Ql (Urine sed) NONE SEEN Normal NONE SEEN /RARE [facility] [place] [facility] Comment on above: Performed By: #### U ARMVEORNICA UMICRO #### [facility] [place] [facility] [address] [place] [address] Dr. Ever Kenny MUCOUS SMALL Abnormal NONE SEEN [facility] [place] [facility] Comment on above: Performed By: #### U ARMVERONICA UMICRO #### [facility] [place] [facility] [address] [place] [address] Dr. Ever Kenny RBC 0-2 Normal 0-2 [facility] [place] [facility] Comment on above: Performed By: #### U ARMVERONICAR UMICRO #### [facility] [place] [facility] [address] [place] [address] Dr. Ever Kenny SPERMATOZOA, UR PRESENT Abnormal [facility] Comment on above: Performed By: #### U ARMICR, UMICRO #### [facility] [place] [facility] [address] [place] [address] Dr. Ever Kenny WBC NONE SEEN Normal NONE SEEN [facility] Comment on above: Performed By: #### U ARMICR UMICRO #### [facility] [address] [place] [address] Dr. Ever Kenny Vital Signs Date Time Vital Sign Value Performing Clinician Facility 07-09-2024 11:38-0400 Body height 170.2 cm Stacey Vaughn COMPREHENSIVE ADVISOR Work Phone: [facility] 07-09-2024 11:38-0400 Body mass index (BMI) [Ratio] 26.09 kg/m2 Stacey Vaughn COMPREHENSIVE ADVISOR Work Phone: [facility] 07-09-2024 11:38-0400 Body temperature 96.69 [degF] Stacey Vaughn COMPREHENSIVE ADVISOR Work Phone: [facility] 07-09-2024 11:38-0400 Body weight 75.57 kg Stacey Vaughn COMPREHENSIVE ADVISOR Work Phone: [facility] 07-09-2024 11:38-0400 Diastolic blood pressure 60 mm[Hg] Stacey Vaughn COMPREHENSIVE ADVISOR Work Phone: [facility] 07-09-2024 11:38-0400 Heart rate 75 /min Stacey Vaughn COMPREHENSIVE ADVISOR Work Phone: [facility] 07-09-2024 11:38-0400 Respiratory rate 16 /min Stacey Vaughn COMPREHENSIVE ADVISOR Work Phone: [facility] 07-09-2024 11:38-0400 SaO2% (BldA) [Mass fraction] 93 % Stacey Vaughn COMPREHENSIVE ADVISOR Work Phone: [facility] 07-09-2024 11:38-0400 Systolic blood pressure 116 mm[Hg] Stacey Vaughn COMPREHENSIVE ADVISOR Work Phone: [facility] 06-17-2024 09:41-0400 Body mass index (BMI) [Ratio] 26.78 kg/m2 Stacey Vaughn COMPREHENSIVE ADVISOR Work Phone: [facility] 06-17-2024 09:41-0400 Body temperature 97.81 [degF] Stacey Vaughn COMPREHENSIVE ADVISOR Work Phone: [facility] 06-17-2024 09:41-0400 Body weight 77.56 kg Stacey Vaughn COMPREHENSIVE ADVISOR Work Phone: [facility] 06-17-2024 09:41-0400 Diastolic blood pressure 64 mm[Hg] Stacey Vaughn COMPREHENSIVE ADVISOR Work Phone: [facility] 06-17-2024 09:41-0400 Heart rate 57 /min Stacey Vaughn COMPREHENSIVE ADVISOR Work Phone: [facility] 06-17-2024 09:41-0400 SaO2% (BldA) [Mass fraction] 99 % Stacey Vaughn COMPREHENSIVE ADVISOR Work Phone: [facility] 06-17-2024 09:41-0400 Systolic blood pressure 122 mm[Hg] Stacey Vaughn COMPREHENSIVE ADVISOR Work Phone: [facility] 03-09-2024 07:58-0400 Blood Pressure Location Chrissie SOTELO [facility] 03-09-2024 07:58-0400 Diastolic blood pressure 60 mm[Hg] Chrissie SOTELO [facility] 03-09-2024 07:58-0400 Heart rate 62 /min Chrissie SOTELO [facility] 03-09-2024 07:58-0400 Respiratory rate 18 /min Chrissie SOTELO [facility] 03-09-2024 07:58-0400 Systolic blood pressure 130 mm[Hg] Chrissie SOTELO [facility] 12-12-2023 11:23-0400 Body height 170.2 cm Taryn Real MD Work Phone: [facility] 12-12-2023 11:23-0400 Body mass index (BMI) [Ratio] 26.63 kg/m2 Taryn Real MD Work Phone: [facility] 12-12-2023 11:23-0400 Body weight 77.11 kg Taryn Real MD Work Phone: [facility] 12-12-2023 11:23-0400 Diastolic blood pressure 70 mm[Hg] Taryn Real MD Work Phone: [facility] 12-12-2023 11:23-0400 Heart rate 62 /min Taryn Real MD Work Phone: [facility] 12-12-2023 11:23-0400 Systolic blood pressure 128 mm[Hg] Taryn Real MD Work Phone: [facility] 10-24-2023 10:19-0500 Body height 170.2 cm Larissa Bach MD Work Phone: [facility] [email or web address] 10-24-2023 10:19-0500 Body mass index (BMI) [Ratio] 26.07 kg/m2 [facility] 10-24-2023 10:19-0500 Body weight 75.52 kg Larissa Bach MD [facility] 10-24-2023 10:19-0500 Diastolic blood pressure 70 mm[Hg] Larissa Bach [facility] 10-24-2023 10:19-0500 Heart rate 72 /min Larissa Bach MD Work Phone: [employer] 10-24-2023 10:19-0500 Systolic blood pressure 126 mm[Hg] Larissa Bach MD Work Phone: [employer] 09-08-2023 12:00-0500 Body height 168.91 cm Jeannie Mclean Other [employer] Other 09-08-2023 12:00-0500 Body mass index (BMI) [Ratio] 26.8 kg/m2 Jeannie Mclean Other [employer] Other 09-08-2023 12:00-0500 Body temperature 98.9 [degF] Jeannie Mclean Other [employer] Other 09-08-2023 12:00-0500 Body weight 76.48 kg Jeannie Mclean Other [employer] Other 09-08-2023 12:00-0500 Respiratory rate 18 /min Jeannie Mclean Other [employer] Other 09-08-2023 12:00-0500 SaO2% (BldA) [Mass fraction] 93 % Jeannie Mclean Other [employer] Other 08-13-2023 10:20-0500 Body height 168.91 cm Jama King Other [employer] Other 08-13-2023 10:20-0500 Body mass index (BMI) [Ratio] 27.42 kg/m2 Jama King Other [employer] Other 08-13-2023 10:20-0500 Body weight 78.25 kg Jama King Other [employer] Other 08-13-2023 10:20-0500 Diastolic blood pressure 70 mm[Hg] Jama Scovanner Other [employer] Other 08-13-2023 10:20-0500 Systolic blood pressure 132 mm[Hg] Jama Scovanner Other [employer] Other 07-09-2023 10:20-0400 Body height 168.91 cm Jama King Other [employer] Other 07-09-2023 10:20-0400 Body mass index (BMI) [Ratio] 27.34 kg/m2 Jama King Other [employer] Other 07-09-2023 10:20-0400 Body weight 78.02 kg Jama Scovanner Other [employer] Other 07-09-2023 10:20-0400 Diastolic blood pressure 67 mm[Hg] Jama Scovanner Other [employer] Other 07-09-2023 10:20-0400 Systolic blood pressure 129 mm[Hg] Jama Scovanner Other [employer] Other 03-04-2023 09:03-0400 Blood Pressure Location Chrissie Active Scaler [facility] 03-04-2023 09:03-0400 Diastolic blood pressure 78 mm[Hg] Chrissie Active Scaler [facility] 03-04-2023 09:03-0400 Heart rate 68 /min Chrissie Active Scaler [facility] 03-04-2023 09:03-0400 Respiratory rate 16 /min Chrissie Active Scaler [facility] 03-04-2023 09:03-0400 Systolic blood pressure 128 mm[Hg] Chrissie Active Scaler [facility] 12-18-2022 11:15-0400 Body height 168.91 cm Jeannie Mclean Other [employer] [place] [employer] Other 12-18-2022 11:15-0400 Body mass index (BMI) [Ratio] 29.41 kg/m2 Jeannie Mclean Other [employer] Other 12-18-2022 11:15-0400 Body temperature 97.1 [degF] Jeannie Mclean Other [employer] Other 12-18-2022 11:15-0400 Body weight 83.92 kg Jeannie Mclean Other [employer] Other 12-18-2022 11:15-0400 Diastolic blood pressure 75 mm[Hg] Jeannie Mclean Other [employer] Other 12-18-2022 11:15-0400 Respiratory rate 18 /min Jeannie Mclean Other [employer] Other 12-18-2022 11:15-0400 SaO2% (BldA) [Mass fraction] 96 % Jeannie Mclean Other [employer] Other 12-18-2022 11:15-0400 Systolic blood pressure 125 mm[Hg] Jeannie Mclean Other [employer] Other 11-29-2022 12:25-0400 Body temperature 97.7 [degF] Chrissie Active Scaler [facility] 11-29-2022 12:25-0400 Diastolic blood pressure 89 mm[Hg] Chrissie Active Scaler [facility] 11-29-2022 12:25-0400 Heart rate 64 /min [employer] [facility] 11-29-2022 12:25-0400 Respiratory rate 18 /min [employer] [facility] 11-29-2022 12:25-0400 SaO2% (BldA) [Mass fraction] 97 % Chrissie SOTELO [facility] 11-29-2022 12:25-0400 Systolic blood pressure 139 mm[Hg] Chrissie SOTELO [facility] 11-29-2022 11:25-0400 Blood Pressure Location Chrissie SOTELO [facility] 11-29-2022 11:25-0400 Body temperature 97.7 [degF] Chrissie SOTELO [facility] 11-29-2022 11:25-0400 Diastolic blood pressure 72 mm[Hg] Chrissie SOTELO [facility] 11-29-2022 11:25-0400 Heart rate 62 /min Chrissie SOTELO [facility] 11-29-2022 11:25-0400 Respiratory rate 18 /min Chrissie SOTELO [facility] 11-29-2022 11:25-0400 SaO2% (BldA) [Mass fraction] 97 % Chrissie SOTELO [facility] 11-29-2022 11:25-0400 Systolic blood pressure 135 mm[Hg] Chrissie SOTELO [facility] 11-29-2022 11:11-0400 Blood Pressure Location Chrissie SOTELO [facility] 11-29-2022 11:11-0400 Body temperature 96.8 [degF] Chrissie SOTELO [facility] 11-29-2022 11:11-0400 Diastolic blood pressure 68 mm[Hg] Chrissie SOTELO [facility] 11-29-2022 11:11-0400 Heart rate 61 /min Chrissie SOTELO [facility] 11-29-2022 11:11-0400 Respiratory rate 16 /min Chrissie SOTELO [facility] 11-29-2022 11:11-0400 SaO2% (BldA) [Mass fraction] 96 % Chrissie SOTELO [facility] 11-29-2022 11:11-0400 Systolic blood pressure 133 mm[Hg] Chrissie SOTELO [facility] 11-29-2022 11:01-0400 Blood Pressure Location Chrissie SOTELO [facility] 11-29-2022 10:40-0400 Respiratory rate 13 /min Chrissie SOTELO [facility] 11-29-2022 10:35-0400 Respiratory rate 12 /min Chrissie SOTELO [facility] 11-29-2022 10:30-0400 Respiratory rate 12 /min Chrissie SOTELO [facility] 11-29-2022 08:30-0400 Body temperature 97.7 [degF] Chrissie SOTELO [facility] 11-29-2022 08:30-0400 Heart rate 78 /min Chrissie SOTELO [facility] 11-21-2022 10:36-0400 Diastolic blood pressure 78 mm[Hg] Antoni P House Work Phone: [facility] DO Work Phone: 11-21-2022 10:36-0400 Systolic blood pressure 122 mm[Hg] Antoni P House Work Phone: [facility] DO Work Phone: 11-21-2022 10:34-0400 Body height 170.18 cm Antoni P House Work Phone: [facility] DO Work Phone: 11-21-2022 10:34-0400 Body mass index (BMI) [Ratio] 28.98 kg/m2 Antoni P House Work Phone: [facility] DO Work Phone: 11-21-2022 10:34-0400 Body surface area Derived from formula 1.96 m2 Antoni P House Work Phone: [facility] DO Work Phone: 11-21-2022 10:34-0400 Body weight 83.92 kg Antoni P House Work Phone: [facility] DO Work Phone: 11-21-2022 10:34-0400 Diastolic blood pressure 76 mm[Hg] Antoni P House Work Phone: [facility] DO Work Phone: 11-21-2022 10:34-0400 Heart rate 67 /min Antoni P House Work Phone: [facility] DO Work Phone: 11-21-2022 10:34-0400 Systolic blood pressure 124 mm[Hg] Antoni P House Work Phone: [facility] DO Work Phone: 11-16-2022 09:42-0500 Diastolic blood pressure 78 mm[Hg] Chrissie SOTELO [facility] 11-16-2022 09:42-0500 Heart rate 60 /min Chrissie COOK [facility] 11-16-2022 09:42-0500 Mean blood pressure 96 mm[Hg] Chrissie COOK [facility] 11-16-2022 09:42-0500 Systolic blood pressure 132 mm[Hg] Chrissie SOTELO [facility] 11-16-2022 09:42-0500 Heart rate 60 /min Chrissie SOTELO [facility] 11-16-2022 09:42-0500 SaO2% (BldA) [Mass fraction] 98 % Chrissie SOTELO [facility] 11-16-2022 09:42-0500 Body temperature 97.88 [degF] Chrissie SOTELO [facility] 11-16-2022 09:41-0500 Diastolic blood pressure 78 mm[Hg] Chrissie SOTELO [facility] 11-16-2022 09:41-0500 Mean blood pressure 97 mm[Hg] Chrissie SOTELO [facility] 11-16-2022 09:41-0500 Systolic blood pressure 134 mm[Hg] Chrissie SOTELO [facility] 01-15-2022 13:36-0400 Blood Pressure Location Chino Flores Jr. [facility] 01-15-2022 13:36-0400 Diastolic blood pressure 55 mm[Hg] Chino Flores Jr. [facility] 01-15-2022 13:36-0400 Heart rate 73 /min Chino Flores Jr. [facility] 01-15-2022 13:36-0400 Systolic blood pressure 128 mm[Hg] Chino Flores Jr. [facility] Encounters Encounter Date Encounter Type Care Provider Facility Start: 08-03-2024 End: 08-03-2024 ambulatory James Vyas MD Facility:[facility] Start: 07-20-2024 End: 07-20-2024 ambulatory James Vyas MD Facility:[facility] Start: 07-14-2024 End: 07-14-2024 Refill Aurora Mckeon MA [facility] Comment on above: Ischemic stroke of f rontal lobe ([facility] Start: 07-13-2024 End: 07-13-2024 ambulatory James Vyas MD Facility:[facility] Start: 07-09-2024 End: 07-09-2024 Bamboo flowsheet Stacey Vaughn COMPREHENSIVE ADVISOR Work Phone: [facility] Start: 07-09-2024 End: 07-09-2024 Bamboo flowsheet Stacey Vaughn COMPREHENSIVE ADVISOR Work Phone: [facility] Start: 07-09-2024 End: 07-09-2024 ambulatory STACEY VAUGHN Not Available Start: 07-09-2024 End: 07-09-2024 Office outpatient visit 15 minutes Stacey Vaughn COMPREHENSIVE ADVISOR Work Phone: [facility] Comment on above: Back pain of lumbosa cral region with sciatica (Primary Dx); Lumbar foraminal stenosis; Degeneration of intervertebral disc of lumbar region with discogenic back pain and lower extremity pain Start: 07-02-2024 End: 07-02-2024 Orders Only Stacey Vaughn COMPREHENSIVE ADVISOR Work Phone: [facility] Comment on above: Degeneration of inte rvertebral disc of lumbar region with discogenic back pain and lower extremity pain (Primary Dx); Central spinal stenosis; Foraminal stenosis of lumbar region Start: 06-17-2024 End: 06-17-2024 Bamboo flowsheet Stacey Vaughn COMPREHENSIVE ADVISOR Work Phone: [facility] Start: 06-17-2024 End: 06-17-2024 Bamboo flowsheet Stacey Minerzpatrick COMPREHENSIVE ADVISOR Work Phone: [facility] Start: 06-17-2024 End: 06-17-2024 ambulatory STACEY MINERZPATRICK Not Available Start: 06-17-2024 End: 06-17-2024 Office outpatient visit 15 minutes Stacey Johana COMPREHENSIVE ADVISOR Work Phone: [facility] Comment on above: Mixed hyperlipidemia (CMS/HCC) (Primary Dx); Gastroesophageal reflux disease without esophagitis; Chronic migraine without aura without status migrainosus, not intractable (CMS/HCC); Leg cramping; Back pain of lumbosacral region with sciatica; Sensation of lump in throat; Throat irritation Start: 03-09-2024 End: 03-09-2024 ambulatory Chrissie SOTELO Facility:[facility] Start: 03-09-2024 End: 03-09-2024 Patient encounter procedure Chrissie SOTELO [facility] Start: 01-29-2024 End: 01-29-2024 ambulatory SHAIKH LUIS ALBERTO Not Available Start: 12-12-2023 End: 12-12-2023 Office outpatient visit 15 minutes Taryn Real MD Work Phone: [facility] Comment on above: TIA (transient ische re attack) (Primary Dx); Mixed hyperlipidemia; BMI 26.0-26.9,adult; Former smoker Start: 11-28-2023 End: 11-29-2023 [facility] Start: 11-28-2023 End: 11-28-2023 ambulatory AD [facility] Start: 10-29-2023 End: 10-29-2023 ambulatory COOLRAMBO POOLE Not Available Start: 10-24-2023 Telephone encounter Olena pena [facility] Comment on above: Follow up Start: 10-24-2023 End: 10-24-2023 ambulatory EHAD [facility] Start: 10-24-2023 End: 10-24-2023 Office outpatient new 45 minutes Larissa Bach MD Work Phone: [facility] Comment on above: Cerebrovascular acci dent (CVA), unspecified mechanism (CMS- HCC) (Primary Dx); BRITTANY on CPAP; Chronic tension-type headache, not intractable; Cerebrovascular accident within last 3 months; Hyperglycemia; Palpitation; Cataract of right eye, unspecified cataract type Start: 10-13-2023 ambulatory [facility] Start: 10-09-2023 Telephone encounter Lauren Omalley [facility] Comment on above: STROKE REFERRAL Start: 10-01-2023 End: 10-01-2023 ambulatory [facility] Not Available Start: 09-08-2023 End: 09-08-2023 ambulatory Jeannie Mclean Other [employer] Other Start: 09-08-2023 Office outpatient vi sit 25 minutes Jeannie Mclean [facility] Start: 08-28-2023 Patient encounter procedure Stacey Vauhgn NP Work Phone: [facility] Start: 08-28-2023 End: 08-28-2023 ambulatory [facility] Not Available Start: 08-13-2023 End: 08-13-2023 ambulatory Jama Hernandesner Other [employer] Other Start: 08-13-2023 Office outpatient vi sit 15 minutes Jama Scovanner [facility] Start: 07-09-2023 End: 07-09-2023 ambulatory Jama Scovantoña Other [employer] Other Start: 07-09-2023 Office outpatient ne w 30 minutes Jama Scovanner [facility] Start: 03-04-2023 End: 03-04-2023 Patient encounter procedure Chrissie SOTELO [facility] Start: 12-21-2022 End: 12-21-2022 Patient encounter procedure Chrissie SOTELO [facility] Start: 12-18-2022 End: 12-18-2022 ambulatory Jeannie Mclean Other [facility] [employer] Other Start: 12-18-2022 Office outpatient vi sit 15 minutes Jeannie Mclean [facility] [place] Start: 11-29-2022 End: 11-29-2022 Admission to same day surgery center Chrissie SOTELO [facility] Start: 11-21-[address] Antoni Cho Facility: Start: 11-21-2022 Office consultation new/estab patient 60 min Antoni Cho Work Phone: [facility] DO Work Phone: Start: 11-16-[address] Antoni Cho Facility: Start: 11-16-2022 End: 11-16-2022 Patient encounter procedure Chrissie SOTELO [facility] Start: 10-17-2022 End: 10-18-[address] CHRISSIE SOTELO Facility:[facility] Start: 10-09-2022 End: 10-09-2022 Patient encounter procedure [facility] Start: 01-15-2022 End: 01-15-2022 Patient encounter procedure Chino Flores Jr. 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 Start: 11-22-[address] LINDA SOTELO Comment on above: Performed By: #### P SAD #### [facility] [address] [place] [address] Dr. Ever Kenny Start: 01-27-2020 Colonoscopy Lauren elena Start: 09-09-2019 Total colonoscopy Sarah Cho Work Phone: Cataract (disorder) Chrissie SOTELO Colonoscopy Chino Olivo Excision of lipoma Antoni Cho Work Phone: Tonsillectomy Chino rosa Tonsillectomy Antoni oswald Work Phone: Plan of Treatment Date Care Activity Detail Author Start: 01-26-2025 Screening for malign ant neoplasm of colon Colonoscopy [facility] [email or web address] [facility] Start: 10-24-2024 Adult [facility] Start: 10-24-2024 Depression Screening Depression Scre ening [facility] [email or web address] [facility] Start: 10-24-2024 Tobacco Screening Tobacco Screening [facility] [email or web address] [facility] Start: 09-15-2024 End: 09-15-2024 Patient encounter procedure 09/15/2024 8:30 AM EST Office Visit [facility] [address] [place] [id number] Stacey Vaughn, OSCAR [address] [place] [address] [facility] Start: 09-12-2024 DTaP/Tdap/Td Vaccine s (2 - Td or Tdap) DTaP/Tdap/Td Vaccines (2 - Td or Tdap) [facility] Start: 08-28-2024 Medicare Annual Well ness (AWV) Medicare Annual Wellness (AWV) [facility] Start: 08-07-2024 Tobacco Screening Tobacco Screening [facility] Start: 08-06-2024 Adult BMI Screening Adult BMI Screen ing [facility] Start: 07-20-2024 End: 07-20-2024 Patient encounter procedure 07/20/2024 9:30 AM EST Office Visit [facility] [address] [place] [address] Stacey Vaughn NP [address] [place] [address] [facility] Start: 07-15-2024 Pneumococcal Vaccine : 65+ Years (1 of 1 - PCV) Pneumococcal Vaccine: 65+ Years (1 of 1 - PCV) [facility] Comment on above: Postponed from 12/05 (Other Medical Reasons) Start: 07-09-2024 End: 07-09-2025 MR Lumbar spine WO contrast MR lumbar spine wo contrast Imaging Routine Back pain of lumbosacral region with sciatica Lumbar foraminal stenosis Degeneration of intervertebral disc of lumbar region with discogenic back pain and lower extremity pain Expected: 07/09/2024, Expires: 07/09/2025 [facility] Work Phone: Comment on above: Expected: 07/09/2024 , Expires: 07/09/2025 Start: 05-10-2024 Influenza vaccination [facility] Start: 11-28-2023 End: 11-28-2023 Patient encounter procedure [facility] Start: 11-12-2023 FUV, Provider: Taryn Real, Status: Pen, Time: 10:50 AM FUV, Provider: Taryn Real, Status: Pen, Time: 10:50 AM [facility] DO Work Phone: Start: 10-24-2023 End: 10-24-2024 CTA Carotid artery W contrast IV CT angiogram carotid Imaging Routine Cerebrovascular accident (CVA), unspecified mechanism (CMS-HCC) Expected: 10/24/2023, Expires: 10/24/2024 [facility] [email or web address] Comment on above: Expected: 10/24/2023 , Expires: 10/24/2024 Start: 10-24-2023 End: 10-24-2024 CTA Head Arteries W contrast IV CT angiogram head Imaging Routine Cerebrovascular accident (CVA), unspecified mechanism (CMS-HCC) Expected: 10/24/2023, Expires: 10/24/2024 [facility] Work Phone: Comment on above: Expected: 10/24/2023 , Expires: 10/24/2024 Start: 10-24-2023 End: 10-24-2024 Echo complete W/O contrast Echo complete W/O contrast Echocardiography Routine Cerebrovascular accident (CVA), unspecified mechanism (CMS-HCC) Cerebrovascular accident within last 3 months Expected: 10/24/2023, Expires: 10/24/2024 [employer] Comment on above: Expected: 10/24/2023 , Expires: 10/24/2024 Start: 10-24-2023 End: 10-24-2024 Event monitor Event monitor Cardiac Services Routine Cerebrovascular accident (CVA), unspecified mechanism (CMS-HCC) Palpitation Expected: 10/24/2023, Expires: 10/24/2024 [facility]: Expected: 10/24/2023 , Expires: 10/24/2024 Start: 10-24-2023 End: 10-24-2023 Patient encounter procedure 10/24/2023 10:00 AM EST Office Visit [facility] [address] [place] [address] [place] [address] [place] [address], [address] [place] [phone] [facility] Start: 05-10-2023 COVID-19 Vaccine ( season) COVID-19 Vaccine ( season) [facility] Start: 05-10-2023 Influenza vaccination Influenza Vacc ine [facility] Start: 2005 Fall Risk Screening Fall Risk Screen ing [facility] Start: 2005 Pneumococcal Vaccine : 65+ Years (1 of 1 - PCV) Pneumococcal Vaccine: 65+ Years (1 of 1 - PCV) [facility] Start: 1990 Administration of varicella zoster vaccine Zoster (Shingles) Vaccine (1 of 2) [facility] Start: 1990 Zoster Vaccines (1 of 2) Zoster Vacc magdalene (1 of 2) [facility] Start: 12-06-1959 DTaP,Tdap and Td Vaccines (1 - Tdap) DTaP,Tdap and Td Vaccines (1 - Tdap) [facility] Start: 1958 Adult BMI Follow Up Plan Adult BMI F ollow Up Plan [facility] Start: 1958 Diabetes mellitus screening Diabetes Screening [facility] Start: 1952 Depression Screening Depression Scre ening [facility] Start: 1940 Lipid panel Lipid Panel [facility] Start: 1940 Medicare Annual Well ness Visit [facility] End: 10-24-2024 Creatinine includes GFR, serum Creatinine includes GFR, serum Lab Routine Cerebrovascular accident (CVA), unspecified mechanism (CMS-HCC) 1 Occurrences starting 10/24/2023 until 10/24/2024 [facility] Comment on above: 1 Occurrences starti ng 10/24/2023 until 10/24/2024 End: 10-24-2024 Hemoglobin A1c/Hemoglobin.total in Blood Hemoglobin A1c Lab Routine Cerebrovascular accident (CVA), unspecified mechanism (CMS-HCC) Hyperglycemia 1 Occurrences starting 10/24/2023 until 10/24/2024 [facility] Comment on above: 1 Occurrences starti ng 10/24/2023 until 10/24/2024 End: 10-24-2024 Lipid 1996 panel - Serum or Plasma Lipid profile Lab Routine Cerebrovascular accident (CVA), unspecified mechanism ([facility]-HCC) 1 Occurrences starting 10/24/2023 until 10/24/2024 [facility] Comment on above: 1 Occurrences starti [...] COVID-19 Vac Bivalent 30 MCG/0.3ML Intramuscular Suspension [employer] Work Phone: [facility] 06-15-2022 Fluzone High-Dose Quadrivalent 0.7 ML Intramuscular Suspension Prefilled Syringe Antoni P Berry White Work Phone: [facility] 250 DO Work Phone: 06-15-2022 influenza virus vaccine, unspecified formulation Chrissie ASHLEIGH [facility] 08-10-2021 Pfizer-BioNTech COVID-19 Vacc 30 MCG/0.3ML Intramuscular Suspension Antoni P Berry White Work Phone: [facility] 06-09-2021 SARS-CoV-2 (COVID-19 ) mRNA BNT-162b2 real Flores Jr. [facility] 12-08-2020 SARS-CoV-2 (COVID-19 ) mRNA BNT-162b2 real Flores Jr. [facility] 12-06-2020 Pfizer-BioNTech COVID-19 Vacc 30 MCG/0.3ML Intramuscular Suspension Antoni P Berry White Work Phone: [facility] 11-14-2020 Pfizer-BioNTech COVID-19 Vacc 30 MCG/0.3ML Intramuscular Suspension Antoni P [employer] White Work Phone: [facility] 11-07-2020 SARS-CoV-2 (COVID-19 ) mRNA BNT-162b2 vax Chino Flores [facility] 09-03-2020 influenza virus vaccine, unspecified formulation [employer] [facility] 09-03-2020 influenza, high dose seasonal, preservative-free Antoni P Berry White Work Phone: [facility] 250 DO Work Phone: 09-03-2020 pneumococcal conjuga te vaccine, 13 valent Antoni P Berry White Work Phone: [facility] 06-27-2019 influenza virus vaccine, unspecified formulation Chrissie [employer] [facility] 06-27-2019 influenza, injectabl e, quadrivalent, preservative free Antoni P Berry White Work Phone: [facility] 250 DO Work Phone: 06-27-2019 pneumococcal polysaccharide vaccine, 23 valent Antoni P Berry White Work Phone: [facility] 09-12-2014 tetanus toxoid, redu brenda diphtheria toxoid, and acellular pertussis vaccine, adsorbed Jeannie Mclean Other [employer] Other Payers Date Payer Category Payer Medicare [id number] 2022 Private Health Insurance [id number] 2014 Private Health Insurance [id number] 2005 Medicare [id number] 1959 Medicare [id number] 1959 Private Health Insurance [id number] 1940 Unknown [id number] 2.16.84 [id number] 1940 Unknown [id number] 2.16.84 0.1.803615.3.579.2.593 1940 Unknown [id number] 2.16.84 0.1.466776.3.579.2.593 1940 Unknown [id number] 2.16. 840.1.029352.3.579.2.356 1940 Unknown [id number] 2.16. 840.1.520409.3.579.2.356 1940 Unknown [id number] 2.16.8 40.1.242399.3.579.2.1286 1940 Unknown [id number] 2.16.8 40.1.780028.3.579.2.1286 194 Unknown [id number] 2.16.8 40.1.203236.3.579.2.1286 1940 Unknown [id number] 2.16.8 40.1.453871.3.579.2.1286 1940 Unknown [id number] 2.16.8 40.1.955205.3.579.2.727 1940 Unknown [id number] 2.16.84 0.1.601099.3.579.2.1259 1940 Unknown [id number] 2.16.84 0.1.504763.3.579.2.1259 1940 Unknown [id number] 2.16.84 0.1.348872.3.579.2.1259 1940 Unknown [id number] 2.16.84 0.1.865609.3.579.2.1259 1940 Unknown [id number] 2.16.84 0.1.015301.3.579.2.1259 1940 Unknown [id number] 2.16.840 .1.505321.3.579.2.1259 1940 Unknown [id number] 2.16. 840.1.319517.3.579.2.196 1940 Unknown [id number] 2.16. 840.1.724583.3.579.2.196 1940 Unknown [id number] 2.16. 840.1.225300.3.579.2.196 Unknown Social History Date Type Detail Facility Start: 01-15-2022 End: 10-01-2023 Tobacco smoking status Ex-smoker (finding) [facility] [employer] Start: 08-07-2023 End: 01-29-2024 Sex Assigned At Male [facility] [employer] Start: 06-11-2023 End: 01-29-2024 Social alcohol use Social alcohol use [facility] 250 DO Work Phone: Comment on above: quit 1978; End: 09-09-1978 History of tobacco use Current smoker [facility] End: 09-09-1978 History of tobacco use Cigarette Smoker [facility] Start: 06-11-2023 End: 10-01-2023 Tobacco use and exposure Smokeless tobacco non-user [facility] Start: 08-07-2023 End: 07-09-2024 Alcohol intake Current drinker of alcohol (finding) [facility] Childcare Unknown [facility] Start: 06-16-2021 Alcohol Comment 2-4 BEERS A DAY [facility] [facility] Start: 1940 Sex Assigned At Not on file [facility] Start: 10-01-2023 Alcohol Comment socially [facility] Work Phone: Start: 12-02-2023 End: 12-12-2023 Exposure to SARS-CoV-2 (event) Not sure [facility] History of tobacco use Passive smoker [facility] Medical Equipment Procedure Code Equipment Code Equipment Origin al Text Equipment Identifier Dates [employer] [id number] Start: 07-02-2023 [employer] [id number] Start: 08-06-2023 Functional Status Date Assessment Result Facility 03-09-2024 Functional Status N/A [facility] 03-04-2023 Functional Status N/A [facility] 12-21-2022 Functional Status N/A [facility] 11-16-2022 Functional Status No [facility] 10-09-2022 Functional Status N/A [facility] Clinical Notes 11-22-2021 to 07-14-2024 Telephone Encounter - Aurora Mckeon MA - 07/14/2024 12:56 PM ESTTelephone Encounter - Aurora Mckeon MA - 07/14/2024 12:56 PM Celi Vaughn NP - 07/10/2024 8:52 AM EDTPatient Instructions Note Date & Type Note Facility 07-14-2024 Telephone encounter Note CLARISSA:07/09/2024 NOV:09/15/2024 [facility] 07-14-2024 Miscellaneous Notes CLARISSA:07/09/2024 NOV:09/15/2024 documented in this encounter [facility] 07-10-2024 History of Present illness Narrative Associated [...] y.o. male who presents for Follow-up. HPI Kareen for ongoing lumbar thoracis back pain. Was [...] spine wo contrast documented in this encounter [facility] 07-09-2024 Instructions Stacey Vaughn NP - 07/09/2024 11:30 AM EDT Call Pain management to schedule appointment DR KAMARA- [facility] [place], [place] [phone] MRI ordered. Have completed. We will call you with results. documented in this encounter [facility] 06-17-2024 History of Present illness Narrative Associated [...] R ALBUMIN GLOBULIN RATIO 1.1 Resulting Agency [facility] GERD: Currently Taking Omeprazole every other day [...] 875-125 MG tablet documented in this encounter [facility] 06-17-2024 Instructions Stacey Vaughn NP - 06/17/2024 9:30 AM EDT Have Xray completed of lumbar spine. Take all medications as directed. Call if you need anything! If you develop sudden loss of bowel/bladder function, numbness, loss of strength or severe pain, GO TO ER! documented in this encounter [facility] 03-09-2024 Hospital Discharge instructions Patient Education 03/09/2024 [...] urethra. Follow these instructions at home: Take oufk-rwk-gzoalxz and prescription medicines only as told by [...] provider. Document Revised: 03/14/2022 Document Reviewed: 03/14/2022 [employer] Patient Education 2022 [employer]. Follow Up Care 03/04/2023 09:33:42 With:ASHLEIGH POTTS, Chrissie Bradley, URL Address: [facility] [employer] [address] [place] [address]- When: Unknown [facility] [employer] 03-09-2024 Note Patient Education Urology Benign Prostatic [...] Follow these instructions at home: ? Take xinq-xho-mjxhxko and prescription medicines only as told by [...] develop side effec (more content not included)... [facility] 12-12-2023 History of Present illness Narrative [...] Scribe Attestation By signing my name below, IAminata LPN, Scribe attest that this documentation has been [...] discussion and plan. documented in this encounter [facility] Work Phone: 12-12-2023 Instructions Aminata Dickerson [...] as needed only documented in this encounter [facility] Work Phone: 10-24-2023 Miscellaneous Notes would like to follow up 2 months in [place]. Please schedule 1st attempt: [employer] contacted patient and informed them that we have received a request to be seen in our clinic for a follow up appointment. Patient stated that they will contact our clinic later to schedule documented in this encounter [facility] 10-24-2023 Telephone encounter Note would like to follow up 2 months in [place]. Please schedule [facility] 10-24-2023 Telephone encounter Note 1st attempt: [employer] contacted patient and informed them that we have received a request to be seen in our clinic for a follow up appointment. Patient stated that they will contact our clinic later to schedule [facility] 10-24-2023 History of Present illness Narrative [...] TBI, seizures, learning disability. 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 Appears to be a coincidental finding, asymptomatic. Patient seems to have had a right-sided cataract surgery about 3-4 months ago, the afterwards he has been having grcf-xi-tllokkyp severity tension-type headaches around the right temporal/frontal [...] Supportive care. Regular follow-up with PCP and transition social worker Call 911 if symptoms of TIA/Stroke occur. Follow up with me in 3 months. Larissa Bach MD Vascular Neurologist [facility] Neurology ([facility]) I have personally participated in the care of this patient. I have reviewed all pertinent clinical information, including history, physical exam, investigation results and plan. I spent 45 minutes caring for this patient, and more than 50% of that time was spent on counseling the patient/legal support analyst/care team and coordinating care. Important Notice: This note was created with the assistance of a speech recognition program. While intending to generate a timely document that accurately reflects the content of the encounter, no guarantee can be provided that every grammatical or spelling mistake has been or will be identified or corrected. Thank you for your understanding. documented in this encounter [facility] [email or web address] [facility] 10-09-2023 Miscellaneous Notes Recieved a referral for our Stroke Clinic Referral is uploaded into the Media folder in the patients chart. Dx: ISCHEMIC STROKE OF FRONTAL LOBE Referred by: SHAIKH LUIS ALBERTO MD Images from the original note were not included. Patient had MRI brain at [facility] that showed CVA. Headache x 3-4mos. Schedule new patient with Dr. Bach. Patient referred to [facility] however extended wait time. Will have him be seen in boss/tele initially and if follow up needed, can have patient seen in [place] then. Alayna, can you have imaging sent over from [facility] please Faxed a request to push over both images and reports. Currently waiting for response. Spoke with patient and made the appt documented in this encounter [facility] 10-09-2023 Telephone encounter Note Recieved a referral for our Stroke Clinic Referral is uploaded into the Media folder in the patients chart. Dx: ISCHEMIC STROKE OF FRONTAL LOBE Referred by: SHAIKH LUIS ALBERTO MD [facility] 10-09-2023 Telephone encounter Note Images from the original note were not included. Patient had MRI brain at [facility] that showed CVA. Headache x 3-4mos. Schedule new patient with Dr. Bach. Patient referred to [facility] however extended wait time. Will have him be seen in [facility] initially and if follow up needed, can have patient seen in [place] then. Alayna, can you have imaging sent over from [facility] please [facility] 10-09-2023 Telephone encounter Note Faxed a request to push over both images and reports. Currently waiting for response. [facility] 10-09-2023 Telephone encounter Note Spoke with patient and made the appt [facility] [employer] 09-08-2023 Evaluation note Encounter Date Diagnosis Assessment [...] treatment plan. Patient left in stable condition [employer] Other 2023 Evaluation note* Encounter Date Diagnosis Assessment Notes Treatment Notes Treatment Clinical Notes Aug, Diarrhea (ICD-10 - R19.7) Patient reports that he has had some improvement and will continue Levsin as directed, fiber, and probiotic without change RTO 3 months [employer] Other 10-31-2023 Evaluation note* Encounter Date Diagnosis Assessment Notes Treatment Notes Treatment Clinical Notes Jun, Diarrhea (ICD-10 - R19.7) This patient states his diarrhea started about 4 months ago. At it's worst, he was only going once, but he had urgency & was a large amount. The frequency & severity have improved somewhat. He reported to [facility] [place] [facility] ER last month. Lab & stool [...] colonoscopy. Return visit here in one month [employer] Other 10-01-2023 History general Narrative - Reported* Type Description Date Medical History Hypercholesteremia Surgical History tonsillectomy and adenoidectomy Surgical History lipoma Surgical History colonoscopy Surgical History cataract removal 06/2023 Hospitalization History see above Hospitalization History [facility] for diarrhea 05/2023 [employer] Other 10-01-2023 History general Narrative - Reported* Type Description Date Medical History Hypercholesteremia Medical History diarrhea Surgical History tonsillectomy and adenoidectomy Surgical History lipoma Surgical History colonoscopy Surgical History cataract removal 06/2023 Hospitalization History see above Hospitalization History [facility] for diarrhea 05/2023 [employer] Other 06-26-2023 Hospital Discharge instructions Patient Education [...] Follow these instructions at home: Medicines Take mhhr-gwo-beuakhu and prescription medicines only as told by [...] or the blood stops without treatment. Take nnmc-hdd-qjfwiwd and prescription medicines only as told by your health care provider. Drink enough fluid to keep your urine pale yellow. This information is not intended to replace advice given to you by your health care provider. Make sure you discuss any questions you have with your health care provider. Document Revised: 04/26/2021 Document Reviewed: 04/26/2021 Elsevier Patient Education 2022 [employer]. Follow Up Care 12/21/2022 09:24:19 With:ASHLEIGH POTTS, Chrissie Bradley, URL [address]: [address] [address]- When:Within 1 Year(s) [facility] [place] [phone] Hospital Discharge instructions Patient Education 12/21/2022 09:11:46 [...] Follow these instructions at home: Medicines Take pbjq-trc-wnqcsts and prescription medicines only as told by [...] or the blood stops without treatment. Take aetf-mbh-cqjtogd and prescription medicines only as told by your health care provider. Drink enough fluid to keep your urine clear or pale yellow. This information is not intended to replace advice given to you by your health care provider. Make sure you discuss any questions you have with your health care provider. Document Released: 08/26/2006 Document Revised: 01/20/2020 Document Reviewed: 09/28/2017 [employer] Patient Education 2020 [employer]. Follow Up Care 11/29/2022 14:24:46 With:ASHLEIGH POTTS, Chrissie Bradley, URL Address: [facility] [employer] [place] [id number]- When:02/20/2023 [facility] [place] [phone] Evaluation note* Encounter Date Diagnosis Assessment Notes [...] understanding and is agreeable with treatment plan. [employer] Other 03-23-2023 Evaluation + Plan noteExtracted from: Title:CSB post op Author:Meek Combs MD Date:11/29/22 Plan Transfer/Discharge: Transfer/Discharge Discharge when meets criteria ( From PACU to Ambulatory Surgery Unit, and To home ). Extracted from: Title:CSB GA Author:Meek Combs MD Date:11/29/22 Plan [place] [employer] Anesthesiologists (ASA) physical status classification: Class II. Anesthetic Preoperative Plan: Anesthesia General. Future Appointments Appointment Date:12/21/2022 09:00:00 AM Scheduled Provider:Chrissie SOTELO MD Location:[facility] [place] Appointment Type:URO Office Visit [facility]03-23-2023 Hospital Discharge instructions Patient Education 11/29/2022 10:49:22 Post Op Patient Instructions - FT (Custom) (Custom) Follow Up Care 10/30/2022 08:14:31 With:CHACHA MULLINS Address: [address] [place] [phone] [facility] (1) When: Unknown Comments:Call for followup appointment with Mindi Mullins PA-C or me within the next 2-3 weeks. Should you haveproblems prior to that visit, please let us know.No shower for two days. Keep scrotal support and ice intermittently for discomfort.Have a great day! [facility]01-31-2023 Hospital Discharge instructions Patient Education 10/09/2022 [...] urethra. Follow these instructions at home: Take sovb-kxt-bbeifzk and prescription medicines only as told by [...] 08/26/2006 Document Revised: 07/21/2019 Document Reviewed: 09/30/2017 [employer] Patient Education 2020 [employer]. Follow Up Care 10/05/2022 09:45:41 With:ASHLEIGH POTTS, Chrissie Bradley, URL Address: [facility] [employer] [address] [place], [place] [id number]- When: Unknown [facility] [place] [id number] Hospital Discharge instructions Patient Education 01/15/2022 14:02:51 [...] Follow these instructions at home: Medicines Take qaap-rms-asglnvq and prescription medicines only as told by [...] or the blood stops without treatment. Take rdvo-lnp-juiqpyu and prescription medicines only as told by your health care provider. Drink enough fluid to keep your urine clear or pale yellow. This information is not intended to replace advice given to you by your health care provider. Make sure you discuss any questions you have with your health care provider. Document Released: 08/26/2006 Document Revised: 01/20/2020 Document Reviewed: 09/28/2017 [employer] Patient Education 2019 [employer] Follow Up Care 01/03/2022 11:13:58 With:Chino Flores Jr., MD, URO Address: [facility] [address], [facility] [place] [address]- When:01/15/2023 [facility] [id number] NotePROCEDURE: XR SHOULDER LT 2V or > COMPARISON: None. HISTORY: Pain of left shoulder joint FINDINGS: BONES:No acute fracture or dislocation. Moderate acromioclavicular and glenohumeral joint osteoarthropathy with joint space narrowing marginal osteophyte formation. Subchondral cystic change of the glenoid. SOFT TISSUES:Negative. No visible soft tissue swelling. EFFUSION:None visible. OTHER: Negative. IMPRESSION: Moderate osteoarthritis Electronically authenticated by: AQUILES SPAIN Date: 2021-11-22 [facility]:29[facility] Future Appointments Appointment Date:01/21/2023 10:30:00 AM Scheduled Provider:Chino Flores Jr., MD Location:[facility] Appointment Type:URO Office Visit Diagnostic Tests Pending * Urine Cytology ([facility]) 01/15/22 [facility] Evaluation + Plan note Future Appointments Appointment Date:01/21/2023 10:30:00 AM Scheduled Provider:Chino Flores Jr., MD Location:[facility] Appointment Type:URO Office Visit [facility] Evaluation + Plan note Future Appointments Appointment Date:11/29/2022 10:00:00 AM Scheduled Provider: Location:[facility] Appointment Type:Surgery FT Appointment Date:01/21/2023 10:30:00 AM Scheduled Provider:Chino Flores Jr., MD Location:[facility] Future Appointments Appointment Date:03/04/2023 08:30:00 AM Scheduled Provider:Chrissie SOTELO MD Location:[facility] Appointment Type:URO Office Visit [facility] Evaluation + Plan note Future Appointments Appointment Date:03/09/2024 08:00:00 AM Scheduled Provider:Chrissie SOTELO MD Location:[facility] [place] Appointment Type:URO Office Visit [facility] [place] Evaluation note* Diagnosis Cerebrovascular accident (CVA), [...] hazards to health documented in this encounter [facility] Work Phone: Evaluation note* Diagnosis Mixed hyperlipidemia (CMS/HCC)- Primary Mixed hyperlipidemia Gastroesophageal reflux disease without esophagitis Esophageal reflux Chronic migraine without aura without status migrainosus, not intractable (CMS/HCC) Leg cramping Back pain of lumbosacral region with sciatica Sensation of lump in throat Swelling, mass, or lump in head and neck Throat irritation [facility] Diagnosis Chronic diarrhea of unknown [...] type (CMS/HCC) Ischemic stroke of frontal lobe ([facility]/HCC) Gastroesophageal reflux disease without esophagitis Esophageal reflux 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 persistent headache Mixed hyperlipidemia ([facility]/HCC)- Primary Mixed hyperlipidemia Gastroesophageal reflux disease without esophagitis Esophageal reflux Chronic migraine without aura without status migrainosus, not intractable ([facility]/HCC) Leg cramping Back pain of lumbosacral region with sciatica Sensation of lump in throat Swelling, mass, or lump in head and neck Throat irritation Degeneration of intervertebral disc of lumbar region with discogenic back pain and lower extremity pain- Primary Central spinal stenosis Spinal stenosis, unspecified region other than cervical Foraminal stenosis of lumbar region documented in this encounter [facility] HealthcareEvaluation note* Diagnosis Chronic diarrhea of unknown origin- Primary Diarrhea Gastroesophageal reflux disease without esophagitis Esophageal reflux Hyperlipidemia, unspecified hyperlipidemia type ([facility]/HCC) Encounter for Medicare annual wellness exam 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)- Primary New daily persistent headache Chronic diarrhea of unknown origin Diarrhea Ischemic stroke of frontal lobe ([facility]/HCC)- Primary 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 persistent headache Chronic migraine without aura without status migrainosus, not intractable ([facility]/HCC) H/O: CVA (cerebrovascular accident) Hyperlipidemia, unspecified hyperlipidemia type ([facility]/HCC) Hyperlipidemia, unspecified hyperlipidemia type ([facility]/HCC)- Primary 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 persistent headache Ischemic stroke of frontal lobe ([facility]/HCC) Chronic migraine without aura without status migrainosus, not intractable ([facility]/HCC) Chronic migraine without aura without status migrainosus, not intractable ([facility]/HCC)- Primary Hyperlipidemia, unspecified hyperlipidemia type ([facility]/HCC) Ischemic stroke of frontal lobe ([facility]/HCC) Gastroesophageal reflux disease without esophagitis Esophageal reflux 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 persistent headache Mixed hyperlipidemia ([facility]/HCC)- Primary Mixed hyperlipidemia Gastroesophageal reflux disease without esophagitis Esophageal reflux Chronic migraine without aura without status migrainosus, not intractable ([facility]/HCC) Leg cramping Back pain of lumbosacral region with sciatica Sensation of lump in throat Swelling, mass, or lump in head and neck Throat irritation Back pain of lumbosacral region with sciatica- Primary Lumbar foraminal stenosis Degeneration of intervertebral disc of lumbar region with discogenic back pain and lower extremity pain documented in this encounter [facility] HealthcareEvaluation note* Diagnosis Chronic diarrhea of unknown origin- Primary Diarrhea Gastroesophageal reflux disease without esophagitis Esophageal reflux Hyperlipidemia, unspecified hyperlipidemia type ([facility]/HCC) Encounter for Medicare annual wellness exam 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)- Primary New daily persistent headache Chronic diarrhea of unknown origin Diarrhea Ischemic stroke of frontal lobe ([facility]/HCC)- Primary 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 persistent headache Chronic migraine without aura without status migrainosus, not intractable ([facility]/HCC) H/O: CVA (cerebrovascular accident) Hyperlipidemia, unspecified hyperlipidemia type ([facility]) Hyperlipidemia, unspecified hyperlipidemia type ([facility]/HCC)- Primary 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 persistent headache Ischemic stroke of frontal lobe ([facility]) Chronic migraine without aura without status migrainosus, not intractable ([facility]) Chronic migraine without aura without status migrainosus, not intractable ([facility]/HCC)- Primary Hyperlipidemia, unspecified hyperlipidemia type ([facility]) Ischemic stroke of frontal lobe ([facility]) Gastroesophageal reflux disease without esophagitis Esophageal reflux 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 persistent headache Mixed hyperlipidemia ([facility])- Primary Mixed hyperlipidemia Gastroesophageal reflux disease without esophagitis Esophageal reflux Chronic migraine without aura without status migrainosus, not intractable ([facility]/HCC) Leg cramping Back pain of lumbosacral region with sciatica Sensation of lump in throat Swelling, mass, or lump in head and neck Throat irritation Back pain of lumbosacral region with sciatica- Primary Lumbar foraminal stenosis Degeneration of intervertebral disc of lumbar region with discogenic back pain and lower extremity pain Ischemic stroke of frontal lobe ([facility]/HCC) documented in this encounter [facility] HealthcareHistory general Narrative - Reported* Type Description Date Medical History Hypercholesteremia Surgical History tonsillectomy and adenoidectomy Surgical History lipoma Surgical History colonoscopy Hospitalization History see above [employer] Other Hospital course Narrative No data available for this section [facility] Discharge instructions No data available for this section [facility] filed[facility]ed [facility] this [facility]ructionsNot on filedocumented in this encounter [facility] SystemProgress note No data available for this section [facility] Summary Purpose Family History No [...] years the last of which was in [place] 2 and half years ago which was [...] I will retrieve the stress test from [place]. Patient is considered low risk for the [...] Echo complete W/O contrast Larissa Bach MD [address] [place] [address], [address] [place] [address] [place] [address] [place] [address] Phone: [phone] Referral ID Status Reason Start Date Expiration Date V isits Requested Visits Authorized [id number] Pending Review 10/24/2023 10/23/2024 1 1 Specialty Diagnoses / Procedures Referred By Contac t Referred To Contact Radiology Diagnoses Cerebrovascular accident (CVA), unspecified mechanism (CMS-HCC) Procedures CT angiogram carotid Larissa Bach MD [address] [place] [address], [address] [place] [address] [place] [address] [place] [address] Phone: [phone] Referral ID Status Reason Start Date Expiration Date V isits Requested Visits Authorized [id number] Pending Review 10/24/2023 10/23/2024 1 1 Specialty Diagnoses / Procedures Referred By Contac t Referred To Contact Radiology Diagnoses Cerebrovascular accident (CVA), unspecified mechanism ([facility]CC) Procedures CT angiogram head Larissa Bach MD [address] [place] [address], [address] [place] [address] [place] [address] [place] [address] Phone: [phone] Referral ID Status Reason Start Date Expiration Date V isits Requested Visits Authorized [id number] Pending Review 10/24/2023 10/23/2024 1 1 Additional Source Comments Patient Care team informatio n (unrecognized section and content) Neurology Director Relationship Specialty Start Date End Date Shaikh Poole MD [address] [place] [address] PCP - General Internal Medicine 07/02/23 Neurology Director Relationship Specialty Start Date End Date Shaikh Poole MD [address] [place] [address] PCP - General Internal Medicine 07/02/23 Neurology Director Relationship Specialty Start Date End Date Shaikh Poole MD [address] [place] [address] PCP - General Internal Medicine 07/02/23 Neurology Director Relationship Specialty Start Date End Date Shaikh Poole MD [address] [place] [address] PCP - General Internal Medicine 11/05/23 Neurology Director Relationship Specialty Start Date End Date Stevenson Eckert MD [address] [place] [address] PCP - General Family Medicine 05/19/24 Stacey Vaughn NP [address] [place] [address] Nurse Practitioner Family Medicine 05/19/24 Neurology Director Relationship Specialty Start Date End Date Stevenson Eckert MD [address] [place] [address] PCP - General Family Medicine 05/19/24 Stacey Vaughn NP [address] [place] [address] Nurse Practitioner Family Medicine 05/19/24 Neurology Director Relationship Specialty Start Date End Date Stevenson Eckert MD [address] [place] [address] PCP - General Family Medicine 05/19/24 Stacey Vaughn NP [address] [place] [address] Nurse Practitioner Family Medicine 05/19/24 Neurology Director Relationship Specialty Start Date End Date Stevenson Eckert MD [address] [place] [address] PCP - General Family Medicine 05/19/24 Stacey Vaughn NP [address] [place] [address] Nurse Practitioner Family Medicine 05/19/24 Neurology Director Relationship Specialty Start Date End Date Stevenson Eckert MD [address] [place] [address] PCP - General Family Medicine 05/19/24 Stacey Vaughn NP [address] [place] [address] Nurse Practitioner Family Medicine 05/19/24 Neurology Director Relationship Specialty Start Date End Date Stevenson Eckert MD [address] [place] [address] PCP - General Family Medicine 05/19/24 Stacey Vaughn NP [address] [place] [address] Nurse Practitioner Family Medicine 05/19/24 (unrecognized sect ion and content) No Status Records FoundNo Status Records FoundNo Status Records FoundNo Status Records FoundNo Status Records FoundNo Status Records FoundNo Status Records FoundNo Status Records Found INFORMATION SOURCE (unrecogn ized section and content) DATE CREATED AUTHOR 10/18/2022 [facility] DATE CREATED AUTHOR AUTHOR'S ORGANIZ ATION 11/22/2022 [employer] DATE CREATED AUTHOR AUTHOR'S ORGANIZ ATION 12/16/2022 [facility] DATE CREATED AUTHOR AUTHOR'S ORGANIZ ATION 10/26/2023 [facility] DATE CREATED AUTHOR AUTHOR'S ORGANIZ ATION 11/29/2023 [facility] DATE CREATED AUTHOR AUTHOR'S ORGANIZ ATION 03/11/2024 [facility] DATE CREATED AUTHOR AUTHOR'S ORGANIZ ATION 07/11/2024 [facility] EPIC DATE CREATED AUTHOR AUTHOR'S ORGANIZ ATION 08/09/2024 [facility] REASON FOR VISIT (unrecogniz ed section [...] BE BASED ON THE PRIMARY CLINICAL RECORDS. [employer] [facility]. provides no warranty or guarantee of the accuracy or completeness of information in this document.
== END 2024-08-12 11:36 | disposition home or self-care (01) ==
LOC: PM 11:35
PROVIDERS: Visit Provider Nurse Practitioner
DX: M53.3 Sacrococcygeal disorders, not elsewhere classified (principal); M48.062 Spinal stenosis, lumbar region with neurogenic claudication
CPT/HCPCS: G0463

== ENCOUNTER 2024-09-16 07:32 | Outpatient (OUT) | payer MEDICARE, OTHER, SELFPAY ==
[2024-09-16 07:47] LABS: Basophils Percent Auto 0.2 % (0.2-2.0); Eosinophils Absolute Auto 0.3 10^3/uL (0.0-0.7); Hematocrit 43.5 % (42.0-54.0); Hemoglobin 14.2 g/dL (14.0-18.0); Immature Granulocytes Abs Auto 0.02 10^3/uL (0.00-0.03); Immature Granulocytes Pct Auto 0.3 % (0.0-0.5); Lymphocytes Absolute Auto 2.4 10^3/uL (1.2-3.8); Lymphocytes Percent Auto 37.7 % (20.5-60.0); Mean Corpuscular HGB Conc 32.6 g/dL (29.9-35.2); Mean Corpuscular Hemoglobin 32.4 pg (25.9-34.0); Mean Corpuscular Volume 99.3 fL (80.0-94.0); Mean Platelet Volume 9.2 fL (9.5-13.5); Monocytes Absolute Auto 0.7 10^3/uL (0.3-0.8); Monocytes Percent Auto 10.8 % (1.7-12.0); Neutrophils Absolute Auto 2.9 10^3/uL (1.4-6.5); Platelet Count 205 10^3/uL (150-450); Red Blood Count 4.38 10^6/uL (4.70-6.10); White Blood Count 6.2 10^3/uL (4.0-11.0)
[2024-09-16 08:18] LABS: Alanine Aminotransferase 33 U/L (16-63); Albumin Globulin Ratio 1.3; Albumin Level 3.5 g/dL (3.4-5.0); Alkaline Phosphatase 40 U/L (46-116); Anion Gap 10.3; Aspartate Amino Transferase 20 U/L (15-37); BUN Creatinine Ratio 15.8; Bilirubin Total 0.5 mg/dL (0.2-1.0); Calcium 8.6 mg/dL (8.5-10.1); Carbon Dioxide 30.8 mmol/L (21.0-32.0); Chloride 107 mmol/L (98-107); Chol HDL Ratio 2.2; Cholesterol 143 mg/dL (<=200); Estimated GFR (African America >60 (>=60 mL/min/1.73m^2); Estimated GFR (Non-African Ame >60 (>=60 mL/min/1.73m^2); Globulin 2.6 g/dL; Glucose 95 mg/dL (74-106); HDL Cholesterol 64 mg/dL (40-60); Potassium 4.1 mmol/L (3.5-5.1); Sodium 144 mmol/L (136-145); Total Protein 6.1 g/dL (6.4-8.2); Triglycerides 57 mg/dL (<=150); VLDL CHOLESTEROL 11.4 mg/dL
== END 2024-09-16 07:33 | disposition home or self-care (01) ==
LOC: LAB 07:34
DX: E78.2 Mixed hyperlipidemia (principal)
CPT/HCPCS: 36415; 80053; 80061; 85025